=== PATIENT | male | born 1950 | race Caucasian/White ===

== ENCOUNTER 2023-01-18 08:45 | Outpatient (REF) | payer MEDICARE, SELFPAY | END 2023-01-18 08:46 | disposition home or self-care (01) | LOC: HO.HOSX 08:45 | PROVIDERS: Visit Provider Orthopaedic Surgery | DX: Z13.89 Encounter for screening for other disorder (principal) ==

== ENCOUNTER 2023-01-29 09:46 | Outpatient (REF) | payer MEDICARE, SELFPAY ==
--- NOTE | ~2023-01-29 | XR_ITS ---
EXAMINATION: XR PELVIS CLINICAL INFORMATION: Pain COMPARISON: Radiographs dated 09/09/2022. TECHNIQUE: 2 AP views of the pelvis are submitted. FINDINGS: There is bony demineralization. There is an intact right hip total arthroplasty. The left acetabular joint space is well-maintained. There is minimal peripheral osteophyte formation of the articular surfaces of the left hip. No fracture or dislocation is seen. There are diffuse atherosclerotic calcifications. There are incompletely characterized degenerative changes of the lower lumbar spine. XR/XR pelvis 1-2V IMPRESSION: 1. There is an intact right hip total arthroplasty, without hardware failure or loosening seen. 2. There is minimal osteoarthritic change of the left hip.
--- NOTE | ~2023-01-29 | XR_ITS ---
EXAMINATION: XR KNEE, LEFT XR KNEE AP STANDING CLINICAL INFORMATION: Pain. COMPARISON: None available. TECHNIQUE: Lateral and axial views of the left knee were obtained. AP bilateral standing view of the knees was obtained. FINDINGS: There is moderately severe asymmetric narrowing of the medial joint space compartment of the left knee, and the lateral and patellofemoral joint space compartments are well-maintained. There is tricompartment peripheral osteophyte formation. No fracture or dislocation is seen. There is a large left knee joint effusion. No foreign body is seen. There are diffuse atherosclerotic calcifications. The lateral and medial joint space compartments of the right knee are well-maintained. There is slight peripheral osteophyte formation of the medial joint space compartment. There are surgical clips in the medial soft tissues of the right knee. XR/XR knee standing BI IMPRESSION: 1. There is tricompartment osteoarthritic change of the left knee, most pronounced of the medial joint space compartment, where it is marked. 2. There is a large left knee joint effusion. 3. There is minimal osteoarthritic change of the medial joint space compartment of the right knee.
--- NOTE | ~2023-01-29 | XR_ITS ---
EXAMINATION: XR KNEE, LEFT XR KNEE AP STANDING CLINICAL INFORMATION: Pain. COMPARISON: None available. TECHNIQUE: Lateral and axial views of the left knee were obtained. AP bilateral standing view of the knees was obtained. FINDINGS: There is moderately severe asymmetric narrowing of the medial joint space compartment of the left knee, and the lateral and patellofemoral joint space compartments are well-maintained. There is tricompartment peripheral osteophyte formation. No fracture or dislocation is seen. There is a large left knee joint effusion. No foreign body is seen. There are diffuse atherosclerotic calcifications. The lateral and medial joint space compartments of the right knee are well-maintained. There is slight peripheral osteophyte formation of the medial joint space compartment. There are surgical clips in the medial soft tissues of the right knee. XR/XR knee LT 2V IMPRESSION: 1. There is tricompartment osteoarthritic change of the left knee, most pronounced of the medial joint space compartment, where it is marked. 2. There is a large left knee joint effusion. 3. There is minimal osteoarthritic change of the medial joint space compartment of the right knee.
== END 2023-01-29 09:47 | disposition home or self-care (01) ==
LOC: HO.HOSX 09:46
PROVIDERS: Visit Provider Orthopaedic Surgery
DX: M17.12 Unilateral primary osteoarthritis, left knee (principal); M54.50 Low back pain, unspecified; Z96.641 Presence of right artificial hip joint; E11.9 Type 2 diabetes mellitus without complications
CPT/HCPCS: 20610; 72170; 73560; 73565; J1100

== ENCOUNTER → 2023-02-22 10:31 | Outpatient (BNVA) | payer MEDICARE, BC, SELFPAY | PROVIDERS: PCP Family Medicine; Visit Provider Orthopaedic Surgery | DX: M17.12 Unilateral primary osteoarthritis, left knee (principal); M25.462 Effusion, left knee; M54.50 Low back pain, unspecified; E11.9 Type 2 diabetes mellitus without complications | CPT/HCPCS: 20610; J1100 ==

== ENCOUNTER → 2023-03-29 08:55 | Outpatient (BNVA) | payer MEDICARE, SELFPAY | PROVIDERS: PCP Family Medicine; Visit Provider Nurse Practitioner Family | DX: M54.50 Low back pain, unspecified (principal); M17.12 Unilateral primary osteoarthritis, left knee; M16.12 Unilateral primary osteoarthritis, left hip; M25.562 Pain in left knee | CPT/HCPCS: 99202 ==

== ENCOUNTER 2023-05-27 08:26 | Outpatient (AMB) | payer MEDICARE, SELFPAY ==
[2023-05-27 08:32] VITALS: BMI 38.4
--- NOTE | 2023-05-27 08:32 | MHC.OFFVIS ---
Intake Vital Signs 05/27/23 08:32 Height 5 ft 4 in Weight 224 lb BMI 38.4 Intake Visit Reasons: OV - Left Knee Durolane Intake Note: Jt is a 73 year old male who presents today for a left knee Durolane injection. Allergies sulfamethoxazole [From Bactrim] Adverse Reaction (Verified 05/27/23 08:35) Itching trimethoprim [From Bactrim] Adverse Reaction (Verified 05/27/23 08:35) Itching HPI OV - Left Knee Durolane HPI Details Jt is a 73 year old man with severe left knee OA, who presents for a Durolane injection. He denies any changes in his medical history He says his knee is not as bothersome for him compared to his previous appointment. He has worse pain in his lower back and buttocks, which is making it difficult to sit or lay down at night, and wants to know how long he may have pain after tearing his hamstring in 08/2022. He continues to have pain and difficulty using stairs. He says he has been seen by [facility] and was not interested in back surgery. He was seen by [facility] on 03/29/23, who prescribed Lidocaine patches for him to use, as per their note he wanted to have a knee injection prior to discussing back injections or a nerve stimulator trial. PENDING SALE TO [facility] Surgical History History of cardiac cath (07/28/17) History of right hip replacement (08/13/17) Social History Current occupational status: employed Current occupation: [employer] Squ[employer] Review of Systems Const All systems reviewed & are unremarkable except as noted in HPI and below Physical Exam Vital Signs: BMI result Body Mass Index 38.4 Const General: no acute distress and alert Orientation/consciousness: patient oriented x3 Neuro General: patient oriented x3 Extrem Other: Left Knee: No effusion Skin C/D/I edial joitn line TTP No pain with hamstring swtretch. dull ttp along piriformis fossa and ischial tuberosity Psych Appearance: grossly normal Affect: normal affect Attitude: cooperative Office Procedures Joint Injection/Drain Joint Injection/Drain Details: Injected Durolane. Site was prepped using aseptic technique. Patient tolerated the procedure well. Primary Site: left knee Approach Used: anterolateral Coding 55195 - Large joint Procedure code (CPT) selection complete Results Reviewed Results Reviewed: 05/27/23 08:26 Hyaluronate Sodium, Stabilized [Durolane] 60 mg INTRAARTIC .STK-MED ONE Assessment & Plan Assessment & Plan (1) Osteoarthritis of left knee: Code(s): M17.12 - Unilateral primary osteoarthritis, left knee Plan: This is a 72 year old man with severe left knee OA & effusion. He has pain with daily activity, worse at night when lying down or when using stairs. He was last injected on 02/22/23, with no relief. He feels limited in his ADLs but is not interested in surgery at this time. I injected his left knee with Durolane, which he tolerated well. He can follow up prn. (2) Back pain, lumbosacral: Code(s): M54.50 - Low back pain, unspecified Plan: Pain primarily in the lumbosacral region, worse when lying down or sitting. Has spoken with Pain Management on 03/29/23. I recommend he follow up with them to discuss treatment options. (3) Diabetes mellitus: Code(s): E11.9 - Type 2 diabetes mellitus without complications (4) Effusion, left knee: Code(s): M25.462 - Effusion, left knee (5) Spinal stenosis at L4-L5 level: Code(s): M48.061 - Spinal stenosis, lumbar region without neurogenic claudication Plan: May be related. Is seeing pain management. (6) Hamstring injury: Code(s): S76.309A - Unspecified injury of muscle, fascia and tendon of the posterior muscle group at thigh level, unspecified thigh, initial encounter Plan: MRI evidence of priximal hamstring partial avulsion. Minimal;ly painful but region is still painful at night. Plan Scribed for Phil Jerry MD by Carlitos Mcqueen, medical i d sales, on 05/27/23 at 8:45 AM, EST. Coding Level of Care Code Est Pt Level 4 (33945) Diagnoses Osteoarthritis of left knee M17.12 Back pain, lumbosacral M54.50 Diabetes mellitus E11.9 Effusion, left knee M25.462 Spinal stenosis at L4-L5 level M48.061 Hamstring injury S76.309A CPT Codes Coding - 14518 Large joint: 17077 - Large joint ([id number])
== END 2023-05-27 09:04 | disposition home or self-care (01) ==
PROVIDERS: Visit Provider Orthopaedic Surgery
DX: M17.12 Unilateral primary osteoarthritis, left knee (principal); M54.50 Low back pain, unspecified; M25.462 Effusion, left knee; M48.061 Spinal stenosis, lumbar region without neurogenic claudication; S76.309A Unspecified injury of muscle, fascia and tendon of the posterior muscle group at thigh level, unspecified thigh, initial encounter
CPT/HCPCS: 20610; 99214

== ENCOUNTER → 2023-05-27 08:26 | Outpatient (BNVA) | payer MEDICARE, SELFPAY | PROVIDERS: Visit Provider Orthopaedic Surgery | DX: M17.12 Unilateral primary osteoarthritis, left knee (principal); S76.309A Unspecified injury of muscle, fascia and tendon of the posterior muscle group at thigh level, unspecified thigh, initial encounter; M54.50 Low back pain, unspecified; M25.462 Effusion, left knee; M48.061 Spinal stenosis, lumbar region without neurogenic claudication; E11.9 Type 2 diabetes mellitus without complications | CPT/HCPCS: 20610; 99212; J7318 ==

== ENCOUNTER 2024-05-04 10:22 | Outpatient (AMB) | payer MEDICARE, SELFPAY ==
--- NOTE | 2024-05-04 10:24 | A.OFFVIS_ITS ---
Vital Signs 05/04/24 10:26 Height 5 ft 4 in Blood Pressure Location Rt brachial Position Sitting Respiration 17 Pulse 81 Pulse Source Pulse Oximeter Pulse Oximetry (%) 96 Oxygen Delivery Method Room Air Intake Visit Reasons: Chronic Low Back Pain (PARK: 03/29/23) Allergies sulfamethoxazole [From Bactrim] Adverse Reaction (Verified 05/04/24 10:30) Itching trimethoprim [From Bactrim] Adverse Reaction (Verified 05/04/24 10:30) Itching Medication List - Last Reconciled 05/04/24 by Subha Looney albuterol sulfate 90 mcg/actuation 2 puffs inhalation Q6H PRN atorvastatin 80 mg PO DAILY gabapentin 300 mg PO TID insulin degludec (Tresiba FlexTouch U-100 insulin) units subcut levothyroxine 50 mcg PO DAILY losartan-hydrochlorothiazide 50-12.5 mg 1 tab PO DAILY metformin 1,000 mg PO BID methenamine hippurate 1 g PO BID metoprolol tartrate 50 mg PO BID potassium chloride ER 10 mEq PO DAILY HPI Comments Details: Patient presents back to the office today for follow up. Reports persistent right lower back pain with radiation to groin and down the right leg to the knee. Has been taking Tylenol, ibuprofen and gabapentin but pain has not improved rated today as 10/10, worse with walking, sitting, standing Denies attempts at physical therapy, acupuncture, massage or previous injections. Denies red flag symptoms including new loss of bowel, bladder or saddle anesthesia Initial visit with [facility] SELECTOR PACKER: Patient is a pleasant 72-year-old male with prior history of osteoarthritis, lumbar degenerative disc disease, diabetes, aortic valve replacement and right total hip replacement presents today for initial evaluation of left knee, left hip and low back pain related to osteoarthritis and fall injury. Patient reports pain started in August 2022 when he pulled left hamstring muscle while carrying heavy gal of oil. Reports pelvic and abdominal pain has been relieved. 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 Patient reports he completed physical therapy at [facility] without any significant improvement in his functioning or pain relief. His back pain is mostly axial is occasional radiation of pain into his left posterior leg this occasional tingling but no numbness. Patient reports he had completed lumbar spine MRI and was evaluated by Neurosurgery at [facility] in the past and was deemed nonsurgical. This MRI report is not available today. He denies groin pain or sacroiliac joint pain today. His main concern today is left knee pain for which he is scheduled to have series of gel injections through orthopedics office. The patient reports left knee surgical option was also discussed with him but he would like to avoid surgery at this time. He rates his pain at 7/10 today, and as the day goes on he reports his pain reaches 9/10 at work. 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 Patient denies any fever, weight changes, bladder or bowel incontinence, or saddle anesthesia. 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 Answers questions appropriately. Fully engaged in examination. Skin: warm, dry, intact HEENT: Normocephalic. Hearing intact. Cardiac: External chest normal in appearance. Respiratory: No cough, audible wheezing or stridor. Abdomen: without gross distension. MS: No obvious swelling or deformities. Able to stand on bilateral tiptoes and bilateral heels.? Able to transition from sit to stand unassisted. Ambulates with bilaterally normal heel strike and toe off SLR negative bilaterally Tenderness to palpation right lumbar musculature Tenderness to palpation right PSIS [place] positive on the right SI compression positive on the right Thigh thrust positive on the right Negative footdrop, negative clonus Neurological: Oriented to person, place, time and situation. Thought process intact. Ambulates with the use of a walker Psychiatric: Appropriate mood and affect. Good judgment and insight. Assessment & Plan Assessment & Plan (1) Sacroiliac joint dysfunction of right side: Code(s): M53.3 - Sacrococcygeal disorders, not elsewhere classified Category: Medical (2) Myofascial low back pain: Code(s): M54.50 - Low back pain, unspecified Category: Medical (3) Back pain, lumbosacral: Code(s): M54.50 - Low back pain, unspecified Category: Medical Plan Patient presents the office today for evaluation management of his right lower back pain Order placed for PT eval and treat X-ray sacroiliac joint ordered for further evaluation X-ray lumbar spine ordered for for evaluation Methocarbamol 500 mg p.o. t.i.d. as needed. Patient advised on cautions for use SI belt provided today. Patient advised on use Discussed options for treatment, for right diagnostic SI joint injections with local anesthetic if pain persists despite physical therapy and muscle relaxers. All questions and concerns were answered, patient agrees with the plan. Follow up after PT, sooner if needed Orders: Orders XR sacroiliac joint min 3V Today M53.3 - Sacrococcygeal disorders, not elsewhere classified PT Evaluation and Treatment Today M53.3 - Sacrococcygeal disorders, not elsewhere classified, M54.50 - Low back pain, unspecified XR lumbar spine 4V min Today M54.50 - Low back pain, unspecified Medications: New methocarbamol No driving while taking this medication. Do no take with alcohol or other [employer]ELTER SUPER[employer]OR [employer] FURNACE Depressants 500 mg PO TID PRN 60 tabs 0RF muscle spasm Coding Level of Care Code Est Pt Level 4 (92893) Diagnoses Sacroiliac joint dysfunction of right side M53.3 Myofascial low back pain M54.50 Back pain, lumbosacral M54.50
[2024-05-04 10:26] VITALS: PULSE 81; RESP 17; O2SAT 96
== END 2024-05-04 10:56 | disposition home or self-care (01) ==
PROVIDERS: PCP Family Medicine; Visit Provider Registered Nurse Emergency
DX: M53.3 Sacrococcygeal disorders, not elsewhere classified (principal); M54.50 Low back pain, unspecified
CPT/HCPCS: 99214

== ENCOUNTER 2024-05-04 10:22 | Outpatient (REF) | payer MEDICARE, SELFPAY ==
--- NOTE | ~2024-05-04 | XR_ITS ---
EXAMINATION: XR LUMBAR SPINE CLINICAL INFORMATION: Reason for Exam M54.50 - Low back pain, unspecified COMPARISON: No prior study available. TECHNIQUE: 5 views frontal lateral both obliques and coned-down L5-S1. FINDINGS: Five [id number]-lwi-[id number] lumbar vertebrae were identified, mild compression superior endplate of the L2 indeterminant age., there are a grade 1 anterior spondylolisthesis of L4 on L5 and L5 on S1.. Narrowing of intervertebral disc spaces suggest underlying degenerative disc disease. Heavy aortic vascular calcifications. Paravertebral soft tissues are unremarkable. There are radiolucencies, most likely superimposed bowel gas.. No radiographic evidence of osteolytic or osteoblastic lesions. XR/XR lumbar spine 4V min IMPRESSION: * Mild compression fracture superior endplate of L2 indeterminant age. MRI could be utilized to assess the age of the fracture if clinically indicated. * Narrowing of intervertebral disc spaces suggest underlying degenerative disc disease. * Grade 1 anterior spondylolisthesis of L4 on L5 and L5 on S1. * Heavy aortic vascular calcifications.
--- NOTE | ~2024-05-04 | XR_ITS ---
EXAMINATION: XR SACROILIAC JOINTS CLINICAL INFORMATION: Sacrococcygeal disorders. COMPARISON: None available. TECHNIQUE: 3 views of the sacroiliac joints FINDINGS: There are sclerotic changes in the bones adjacent to the sacroiliac joints bilaterally left more than right suggesting sacroiliitis. There is no evidence of ankylosis. Right hip prosthesis in place. There are vascular calcifications. XR/XR sacroiliac joint min 3V IMPRESSION: * Bilateral sacroiliitis left more than right without evidence of ankylosis. * Right hip prosthesis in place. * Vascular calcifications.
== END 2024-05-04 10:23 | disposition home or self-care (01) ==
LOC: HO.XRAY 10:22
PROVIDERS: PCP Family Medicine; Visit Provider Registered Nurse Emergency
DX: M53.3 Sacrococcygeal disorders, not elsewhere classified (principal); M54.50 Low back pain, unspecified
CPT/HCPCS: 72110; 72202; 99212

== ENCOUNTER 2024-06-14 11:14 | Outpatient (AMB) | payer MEDICARE, SELFPAY ==
--- NOTE | 2024-06-14 11:11 | A.OFFVIS_ITS ---
Intake Visit Reasons: Discuss x-ray results Allergies sulfamethoxazole [From Bactrim] Adverse Reaction (Verified 05/04/24 10:30) Itching trimethoprim [From Bactrim] Adverse Reaction (Verified 05/04/24 10:30) Itching HPI Comments Details: Telephone visit performed today with patient for follow-up and to review recent x-rays. X-rays reviewed, results as per below Patient continues with right lower back pain with radiation to the thigh and around to the groin. Consistent with previous visit in physical exam findings Has been taking methocarbamol with some improvement of his pain Utilizing sacroiliac joint belt, reports that this is providing him some relief Unable to incorporate physical therapy into his daily life at this time. 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 The hours of daily driving and unfamiliar beds have also worse in his pain. Denies midline lower back pain Denies red flag symptoms including new loss of bowel, bladder or saddle anesthesia. Denies radiation of the pain past the level of the knee Prior: Patient presents back to the office today for follow up. Reports persistent right lower back pain with radiation to groin and down the right leg to the knee. Has been taking Tylenol, ibuprofen and gabapentin but pain has not improved rated today as 10/10, worse with walking, sitting, standing Denies attempts at physical therapy, acupuncture, massage or previous injections. Denies red flag symptoms including new loss of bowel, bladder or saddle anesthesia Initial visit with Georgiana HOIST MECHANIC: Patient is a pleasant 72-year-old male with prior history of osteoarthritis, lumbar degenerative disc disease, diabetes, aortic valve replacement and right total hip replacement presents today for initial evaluation of left knee, left hip and low back pain related to osteoarthritis and fall injury. Patient reports pain started in August 2022 when he pulled left hamstring muscle while carrying heavy gal of oil. Reports pelvic and abdominal pain has been relieved. 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 Patient reports he completed physical therapy at [facility] without any significant improvement in his functioning or pain relief. His back pain is mostly axial is occasional radiation of pain into his left posterior leg this occasional tingling but no numbness. Patient reports he had completed lumbar spine MRI and was evaluated by Neurosurgery at [facility] in the past and was deemed nonsurgical. This MRI report is not available today. He denies groin pain or sacroiliac joint pain today. His main concern today is left knee pain for which he is scheduled to have series of gel injections through orthopedics office. The patient reports left knee surgical option was also discussed with him but he would like to avoid surgery at this time. He rates his pain at 7/10 today, and as the day goes on he reports his pain reaches 9/10 at work. 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 Patient denies any fever, weight changes, bladder or bowel incontinence, or saddle anesthesia. 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 Review of Systems Const All systems reviewed & are unremarkable except as noted in HPI and below Physical Exam Vital signs and physical exam deferred, telephone visit only Telehealth Telehealth Telehealth Platform: Telephone Location of provider rendering services: practice address Location of patient: address on file Patient Identification confirmed using: Name, : Yes Telehealth method: voice only Patient verbally consented to treatment: Yes Patient verbally consented to billing insurance company: Yes Patient informed of any privacy concerns related to visit: Yes Minutes spent on Phone/Video with Pt.: 8 Results Reviewed Results Reviewed: 05/04/24 XR/XR sacroiliac joint min 3V IMPRESSION: * Bilateral sacroiliitis left more than right without evidence of ankylosis. * Right hip prosthesis in place. * Vascular calcifications. XR/XR lumbar spine 4V min IMPRESSION: * Mild compression fracture superior endplate of L2 indeterminant age. MRI could be utilized to assess the age of the fracture if clinically indicated. * Narrowing of intervertebral disc spaces suggest underlying degenerative disc disease. * Grade 1 anterior spondylolisthesis of L4 on L5 and L5 on S1. * Heavy aortic vascular calcifications. Assessment & Plan Assessment & Plan (1) Sacroiliac joint dysfunction of right side: Code(s): M53.3 - Sacrococcygeal disorders, not elsewhere classified Category: Medical (2) Myofascial low back pain: Code(s): M54.50 - Low back pain, unspecified Category: Medical (3) Back pain, lumbosacral: Code(s): M54.50 - Low back pain, unspecified Category: Medical Plan Telephone visit performed today for follow-up of his right lower back pain X-rays reviewed, results per above Continue with Methocarbamol 500 mg p.o. t.i.d. as needed. Continue using SI belt Discussed at length patient is diagnosis options for treatment. Will schedule for fluoroscopy guided right diagnostic SI joint injections with local anesthetic Patient has exhausted conservative therapy including greater than 6 months of nonsteroidal anti-inflammatory medications, [id number] medications, sacroiliac stabilization with a SI belt. Unable to tolerate physical therapy at this time Continue with plan for MRI lumbar spine to evaluate for worsening stenosis also evaluate status of L2 compression fracture revealed on recent x-ray. All questions and concerns were answered, patient agrees with the plan. Follow up after injection or MRI, sooner if needed Coding Level of Care Code Tele Est Pt Level 3 (76531) Diagnoses Sacroiliac joint dysfunction of right side M53.3 Myofascial low back pain M54.50 Back pain, lumbosacral M54.50
== END 2024-06-14 11:21 | disposition home or self-care (01) ==
LOC: HO.PMC 11:14
PROVIDERS: PCP Family Medicine; Visit Provider Registered Nurse Emergency
DX: M53.3 Sacrococcygeal disorders, not elsewhere classified (principal); M54.50 Low back pain, unspecified
CPT/HCPCS: 99213

== ENCOUNTER → 2024-06-14 11:14 | Outpatient (BNVA) | payer MEDICARE, SELFPAY | PROVIDERS: PCP Family Medicine; Visit Provider Registered Nurse Emergency ==

== ENCOUNTER 2024-06-30 16:41 | Outpatient (REF) | payer MEDICARE, SELFPAY ==
--- NOTE | ~2024-06-30 | MR_ITS ---
EXAMINATION: MR LUMBAR SPINE WITHOUT CONTRAST CLINICAL INFORMATION: 74-year-old with spinal stenosis, lumbar region without neurogenic claudication. Self-reported back pain, left more than right with right leg numbness and tingling. Previously suspected compression fracture of the superior endplate of L2 on prior x-rays. COMPARISON: 05/04/2024 x-rays. TECHNIQUE: MRI of the lumbar spine was obtained using routine sequences without contrast. FINDINGS: CORONAL ALIGNMENT: There is S-shaped scoliotic curvature, convex to the right at L4-L5 and convex to the left at L1-L2 similar to prior x-rays. There is mild right to left lateral listhesis at L2-L3 similar to prior x-rays. SAGITTAL ALIGNMENT: Stable grade 1 degenerative spondylolisthesis at L4-L5 and L5-S1 and stable grade 1 retrolisthesis at L3-L4 and L4-L5 with slight lordotic reversal at L1-L2, unchanged. LUMBOSACRAL JUNCTION: Normal. There are 5 [id number] lumbar-type vertebral bodies. VERTEBRAL BODIES: There is a compression fracture deformity of the superior endplate of L2 asymmetric to the right, with approximately 40% loss of height without significant retropulsion of the superior endplate. Marrow edema along the superior endplate asymmetric to the right associated with some fatty marrow changes is suggestive of incomplete healing. Remaining vertebral body heights are well-maintained. DISC SPACES AND ENDPLATES: Severe disc space height loss is noted asymmetric to the right at L1-L2 and L2-L3 with loss of intradiscal T2 weighted signal at these levels, Schmorl's nodes and spondylosis consistent with discogenic degenerative changes. Moderate to severe disc space height loss asymmetric to the left at L3-L4 with loss of intradiscal T2 weighted signal, Schmorl's nodes and spondylosis. Moderate disc space height loss at L5-S1 and moderate to severe disc space height loss at L4-L5 with intradiscal degenerative signal changes and spondylosis. There is prominent bilateral paravertebral spondylosis at L1-L2 and on the right at L2-L3. SPINAL CANAL: Multilevel diffuse epidural lipomatosis with associated deformity of the thecal sac between L5 and T12-L1. BONE MARROW: There are extensive type I degenerative marrow signal changes along the endplates at L2-L3 asymmetric to the right, with type II marrow signal changes along the endplates at L1-L2 and mixed type I and type II marrow signal changes along the endplates at L3-L4. There is mild marrow edema within the right L2 pedicle and posterior elements, likely reactive. CONUS MEDULLARIS: Terminates at L1-L2. Morphology and signal is normal. INTRADURAL NERVE ROOTS: There is crowding of the intradural nerve roots at L2-L3, L3-L4 and L4-L5 consistent with multilevel spinal canal stenosis. See below. L5-S1: Mild unroofing of the posterior disc margin is noted, with superimposed disc bulging and mild flattening of the dural sac. There is ligamentum flavum thickening with interspinous ligament degeneration and there is advanced bilateral facet joint arthropathy without significant canal stenosis. There is moderate craniocaudal neural foraminal stenosis bilaterally with disc osteophyte complexes abutting the exiting L5 nerve root sleeves bilaterally. L4-L5: Unroofing of the posterior disc margin consistent with grade 1 spondylolisthesis, with superimposed concentric disc bulging and left posterolateral annular fissuring, with flattening of the dural sac. Prominent dorsal fat pad noted with ligamentum flavum thickening and interspinous ligament degeneration, with advanced bilateral facet joint arthropathy with mild subchondral marrow edema adjacent to the left facet joint. Severe central spinal canal stenosis noted with marked crowding of the intradural nerve roots with severe bilateral subarticular and lateral recess stenosis encroaching on the traversing L5 nerve roots bilaterally. There is moderate to severe right-sided and severe left-sided neural foraminal stenosis, with impingement on the left L4 nerve root and mild encroachment on the exiting right L4 nerve root as well. L3-L4: There is retrolisthesis, with concentric disc bulge and endplate spurring asymmetric to the left with mild-moderate facet joint arthrosis, left more than right with ligamentum flavum thickening and a prominent dorsal fat pad. There is moderate to severe central spinal canal stenosis with marked crowding of the intradural nerve roots. There is a small left paramedian caudally migrated disc herniation encroaching on the left lateral recess. There is moderate facet joint arthrosis bilaterally. There is mild-moderate right-sided and moderate to severe left-sided neural foraminal stenosis, with disc osteophyte complex abutting the exiting L3 nerve roots, left more than right. Possible encroachment on the traversing left L4 nerve root in the left lateral recess. L2-L3: Retrolisthesis, concentric disc osteophyte complex and flattening of the dural sac is noted with a prominent dorsal fat pad and ligamentum flavum thickening asymmetric to the right. Moderate facet joint arthropathy noted bilaterally with interspinous ligament degeneration. Moderate to severe central canal stenosis with marked crowding of the intradural nerve roots is noted with severe left lateral recess stenosis and moderate right lateral recess stenosis with probable impingement on the traversing left L3 nerve root. Severe right sided and moderate left-sided neural foraminal stenosis is noted with right L2 nerve root impingement. L1-L2: Broad-based posterolateral disc osteophyte complex is noted asymmetric to the right with flattening of the ventral dural sac without conus impingement. Prominent dorsal fat pad noted with mild facet joint arthrosis on the right. No significant canal stenosis. Moderate right-sided and mild left-sided neural foraminal stenosis is noted with right lateral disc osteophyte complex abutting the extraforaminal right L1 nerve root. T12-L1: Small central to left paramedian disc protrusion. No significant facet joint arthrosis, canal or neural foraminal stenosis. PARAVERTEBRAL AND INCLUDED EXTRASPINAL SOFT TISSUES: There is posterior paraspinal and psoas muscle sarcopenia, particularly the right psoas muscle and bilateral paraspinal musculature. Otherwise unremarkable. MR/MR lumbar spine wo con IMPRESSION: 1. S-shaped scoliosis, as described above, with grade 1 degenerative spondylolisthesis at L4-L5 and L5-S1 and retrolisthesis at L3-L4 and L2-L3. 2. Severe multilevel DDD and spondylosis, with multilevel disc bulging and disc osteophyte complexes with multilevel ligamentum flavum thickening and facet joint arthropathy as well as interspinous ligament degeneration. 3. Severe spinal canal stenosis at L4-L5, moderate to severe spinal canal stenosis at L3-L4 and L2-L3 with marked crowding of the intradural nerve roots. Left lateral recess stenosis at L2-L3 and L3-L4 and bilateral lateral recess stenosis at L4-L5 with multilevel traversing neural impingement. 4. Multilevel bilateral neural foraminal stenosis, most severe on the left at L4-L5 and L3-L4 and on the right at L2-L3 with multilevel exiting nerve root impingement. 5. Compression fracture deformity of the superior endplate of L2 asymmetric to the right, with marrow edema along the superior endplate asymmetric to the right suggesting incomplete healing. 6. Diffuse sarcopenia particularly involving the right psoas muscle and bilateral paraspinal musculature. Electronically signed by: Lencho Oakes MD 07/07/2024 04:39 PM EDT RP
== END 2024-06-30 16:42 | disposition home or self-care (01) ==
LOC: HO.MRI 16:41
PROVIDERS: PCP Family Medicine; Visit Provider Registered Nurse Emergency
DX: M48.061 Spinal stenosis, lumbar region without neurogenic claudication (principal)
CPT/HCPCS: 72148

== ENCOUNTER 2024-07-13 09:40 | Outpatient (AMB) | payer MEDICARE, SELFPAY ==
[2024-07-13 09:48] VITALS: BP 117/57; PULSE 65; O2SAT 97; BMI 37.8
--- NOTE | 2024-07-13 09:48 | MHC.OFFVIS ---
Vital Signs 07/13/24 09:48 Height 5 ft 4 in Weight 220 lb BMI 37.8 BP 117/57 L Blood Pressure Location Rt brachial Position Sitting Pulse 65 Pulse Source Pulse Oximeter Pulse Oximetry (%) 97 Oxygen Delivery Method Room Air Intake Visit Reasons: MRI results Allergies sulfamethoxazole [From Bactrim] Adverse Reaction (Verified 07/13/24 09:48) Itching trimethoprim [From Bactrim] Adverse Reaction (Verified 07/13/24 09:48) Itching Medication List - Last Reconciled 07/13/24 by uSbha Looney albuterol sulfate 90 mcg/actuation 2 puffs inhalation Q6H PRN atorvastatin 80 mg PO DAILY gabapentin 300 mg PO TID insulin degludec (Tresiba FlexTouch U-100 insulin) units subcut levothyroxine 50 mcg PO DAILY losartan-hydrochlorothiazide 50-12.5 mg 1 tab PO DAILY metformin 1,000 mg PO BID methenamine hippurate 1 g PO BID methocarbamol 500 mg PO TID PRN metoprolol tartrate 50 mg PO BID potassium chloride ER 10 mEq PO DAILY HPI Comments Details: Patient presents to the office today for follow-up lower back pain, review of recent MRI MRI reviewed, results as per below He reports since last visit pain has been less in the groin, buttocks and thigh. He has been suffering with right lower back pain with radiation down the leg to the foot Does state that since his last disease no longer driving for extended period of time daily for work and maybe this is why his presentation has changed Is concerned for worsening stenosis, states feels better when he walks with a slight forward flexed position in does endorse leaning over grocery cart when shopping improves his pain. Also recently suffered a metatarsal fracture to his left foot, is wearing walking boot. Prior: Telephone visit performed today with patient for follow-up and to review recent x-rays. X-rays reviewed, results as per below Patient continues with right lower back pain with radiation to the thigh and around to the groin. Consistent with previous visit in physical exam findings Has been taking methocarbamol with some improvement of his pain Utilizing sacroiliac joint belt, reports that this is providing him some relief Unable to incorporate physical therapy into his daily life at this time. 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 The hours of daily driving and unfamiliar beds have also worse in his pain. Denies midline lower back pain Denies red flag symptoms including new loss of bowel, bladder or saddle anesthesia. Denies radiation of the pain past the level of the knee Prior: Patient presents back to the office today for follow up. Reports persistent right lower back pain with radiation to groin and down the right leg to the knee. Has been taking Tylenol, ibuprofen and gabapentin but pain has not improved rated today as 10/10, worse with walking, sitting, standing Denies attempts at physical therapy, acupuncture, massage or previous injections. Denies red flag symptoms including new loss of bowel, bladder or saddle anesthesia Initial visit with [place] [employer]: Patient is a pleasant 72-year-old male with prior history of osteoarthritis, lumbar degenerative disc disease, diabetes, aortic valve replacement and right total hip replacement presents today for initial evaluation of left knee, left hip and low back pain related to osteoarthritis and fall injury. Patient reports pain started in August 2022 when he pulled left hamstring muscle while carrying heavy gal of oil. Reports pelvic and abdominal pain has been relieved. 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 Patient reports he completed physical therapy at [facility] without any significant improvement in his functioning or pain relief. His back pain is mostly axial is occasional radiation of pain into his left posterior leg this occasional tingling but no numbness. Patient reports he had completed lumbar spine MRI and was evaluated by Neurosurgery at [facility] in the past and was deemed nonsurgical. This MRI report is not available today. He denies groin pain or sacroiliac joint pain today. His main concern today is left knee pain for which he is scheduled to have series of gel injections through orthopedics office. The patient reports left knee surgical option was also discussed with him but he would like to avoid surgery at this time. He rates his pain at 7/10 today, and as the day goes on he reports his pain reaches 9/10 at work. 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 Patient denies any fever, weight changes, bladder or bowel incontinence, or saddle anesthesia. Location Left knee, left hip and low back pain Duration Since August 2022 due to a fall Characteristics of symptom or complaint Aching and stabbing, occasional tingling Aggravating or associated factors Movements, prolonged walking, climbing stairs, changing positions Relieving factors Rest, gabapentin, OTC topical applications Treatment PT at [facility], cortisone injections FOR[facility]LY [facility], [facility] Surgical History History of cardiac cath (07/28/17) History of right hip replacement (08/13/17) Social History Current occupational status: employed Current occupation: [employer] Review of Systems Const All systems reviewed & are unremarkable except as noted in HPI and below Physical Exam Vital Signs: Last Vital Signs Pulse 65 07/13/24 09:48 BP 117/57 L 07/13/24 09:48 Pulse Ox 97 07/13/24 09:48 Oxygen Delivery Method Room Air 07/13/24 09:48 BMI result Body Mass Index 37.8 General: awake, alert, oriented. Answers questions appropriately. Fully engaged in examination. Skin: warm, dry, intact HEENT: Normocephalic. Hearing intact. Cardiac: External chest normal in appearance. Respiratory: No cough, audible wheezing or stridor. Abdomen: without gross distension. MS: No obvious swelling or deformities. Able to stand on bilateral tiptoes and bilateral heels.? Able to transition from sit to stand unassisted. Ambulates with bilaterally normal heel strike and toe off SLR negative bilaterally Negative footdrop, negative clonus Walking boot to left foot Neurological: Oriented to person, place, time and situation. Thought process intact. Ambulates with the use of a walker Psychiatric: Appropriate mood and affect. Good judgment and insight. Results Reviewed Results Reviewed: 06/30/24 MR LS IMPRESSION: 1. S-shaped scoliosis, as described above, with grade 1 degenerative spondylolisthesis at L4-L5 and L5-S1 and retrolisthesis at L3-L4 and L2-L3. 2. Severe multilevel DDD and spondylosis, with multilevel disc bulging and disc osteophyte complexes with multilevel ligamentum flavum thickening and facet joint arthropathy as well as interspinous ligament degeneration. 3. Severe spinal canal stenosis at L4-L5, moderate to severe spinal canal stenosis at L3-L4 and L2-L3 with marked crowding of the intradural nerve roots. Left lateral recess stenosis at L2-L3 and L3-L4 and bilateral lateral recess stenosis at L4-L5 with multilevel traversing neural impingement. 4. Multilevel bilateral neural foraminal stenosis, most severe on the left at L4-L5 and L3-L4 and on the right at L2-L3 with multilevel exiting nerve root impingement. 5. Compression fracture deformity of the superior endplate of L2 asymmetric to the right, with marrow edema along the superior endplate asymmetric to the right suggesting incomplete healing. 6. Diffuse sarcopenia particularly involving the right psoas muscle and bilateral paraspinal musculature. 05/04/24 XR/XR sacroiliac joint min 3V IMPRESSION: * Bilateral sacroiliitis left more than right without evidence of ankylosis. * Right hip prosthesis in place. * Vascular calcifications. XR/XR lumbar spine 4V min IMPRESSION: * Mild compression fracture superior endplate of L2 indeterminant age. MRI could be utilized to assess the age of the fracture if clinically indicated. * Narrowing of intervertebral disc spaces suggest underlying degenerative disc disease. * Grade 1 anterior spondylolisthesis of L4 on L5 and L5 on S1. * Heavy aortic vascular calcifications. Assessment & Plan Assessment & Plan (1) Sacroiliac joint dysfunction of right side: Code(s): M53.3 - Sacrococcygeal disorders, not elsewhere classified Category: Medical (2) Myofascial low back pain: Code(s): M54.50 - Low back pain, unspecified Category: Medical (3) Back pain, lumbosacral: Code(s): M54.50 - Low back pain, unspecified Category: Medical (4) Spinal stenosis at L4-L5 level: Code(s): M48.061 - Spinal stenosis, lumbar region without neurogenic claudication Category: Medical Plan MRI reviewed, results as per above Referral placed for neuro spine to evaluate Discussed at length patient is diagnosis options for treatment. Will schedule for fluoroscopy guided bilateral L3-4 L4-5 transforaminal epidural steroid injection Patient has exhausted conservative therapy including greater than 6 months of nonsteroidal anti-inflammatory medications, [id number] medications. Unable to tolerate physical therapy at this time All questions and concerns were answered, patient agrees with the plan. Follow up after injection, sooner if needed Orders: Referrals Neuro Spine Referral M48.061 - Spinal stenosis, lumbar region without neurogenic claudication Coding Level of Care Code Est Pt Level 3 (68535) Complex EM visit Add On G2211 Diagnoses Sacroiliac joint dysfunction of right side M53.3 Myofascial low back pain M54.50 Back pain, lumbosacral M54.50 Spinal stenosis at L4-L5 level M48.061
== END 2024-07-13 10:25 | disposition home or self-care (01) ==
PROVIDERS: PCP Family Medicine; Visit Provider Registered Nurse Emergency
DX: M53.3 Sacrococcygeal disorders, not elsewhere classified (principal); M54.50 Low back pain, unspecified; M48.061 Spinal stenosis, lumbar region without neurogenic claudication
CPT/HCPCS: 99213; G2211

== ENCOUNTER → 2024-07-13 09:40 | Outpatient (BNVA) | payer MEDICARE, SELFPAY | PROVIDERS: PCP Family Medicine; Visit Provider Registered Nurse Emergency | DX: M53.3 Sacrococcygeal disorders, not elsewhere classified (principal); M54.50 Low back pain, unspecified; M48.061 Spinal stenosis, lumbar region without neurogenic claudication | CPT/HCPCS: 99212 ==

== ENCOUNTER 2024-07-24 10:23 | Outpatient (AMB) | payer MEDICARE, SELFPAY ==
--- NOTE | 2024-07-24 10:26 | HO.SPINEOV ---
Intake Visit Reasons: lumbar stenosis Intake Note: Mr. Casarez is here today c/o back pain difficulty with walking. Director Cardiovascular Required: No Allergies sulfamethoxazole [From Bactrim] Adverse Reaction (Verified 07/13/24 09:48) Itching trimethoprim [From Bactrim] Adverse Reaction (Verified 07/13/24 09:48) Itching Assessment & Plan Assessment & Plan (1) Lumbar radiculopathy: Code(s): M54.16 - Radiculopathy, lumbar region Category: Medical Plan Dear Sandi Thank you for referring Mr Casarez to our office today. He is a very nice 74-year-old gentleman presents to the office today for evaluation of spine issues relating to his lower back. He has had a issue over the last 12 months where he has developed an right anterior groin pain that radiates down the front of his leg, there is an occasional tingling or numbness associated with it but is primarily a severe stabbing like pain. He did have a hip replaced on the right side and went see the orthopedics office here to see if there is something wrong with the implant and was told that it was okay. He ultimately underwent a lumbar MRI showing extensive degenerative disc disease and foraminal and central canal narrowing was sent today see us for an evaluation. In the interim, he has been dealing with this primarily with gabapentin. He also takes Tylenol and Motrin. He has not yet had any injections but as I understand it there was an upcoming L3-4, L4-5 transforaminal epidural that he is scheduled for sometime in July. He comes in today to see us to have a surgical evaluation with regard to his lumbar spine. 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 [place] and at times he will have to get out of his truck just to make the pain go away. PMH: He has history of right hip replacement, hypertension, cholesterol, recurrent UTIs that apparently was addressed with medications, diabetes with an A1c that generally hovers around 7, he had a aortic valve replacement port seen done at [facility] about 5 years ago. He has had a number of different issues going on with his feet, he has fractured both of his foot bones on either foot with minimal stress and strain. He tells me he was just simply turning with his weight on 1 ft and fractured his metatarsal. He has done that twice. It has required surgery to put pins in there. Other than that he tells me has no major medical problems, heart attacks, strokes, kidney disorders, liver disease. No bleeding disorders, blood clots, cancer etc.. Social hx: He has been a drinker for most of his adult life, with daily alcohol consumption. He has cut back on this over the last few weeks. He does not smoke or use any marijuana. Medications: Gabapentin, methocarbamol, metformin, insulin, methenamine, vitamin-C, some medication for his heart beat which he could not recall the name, levothyroxine, baby aspirin, Motrin, Tylenol Allergies: Bactrim Physical exam: He appears uncomfortable Imaging review: He is a lumbar MRI done at [place] which has significant findings of scoliotic curvature of the lumbar spine, he appears to have a compression fracture which remains active on the STIR sequencing at L2. There is severe right-sided collapse with severe right L2 foraminal stenosis at this level. He also has moderate stenosis at L3-4 and severe stenosis at L4-5 with a grade 1-2 spondylolisthesis at this level. Impression: 74-year-old male presents to the office today for evaluation of what sounds like an upper lumbar radiculopathy radiating from his anterior groin down into his thigh and knee. I am suspicious it could be the L2 nerve in the L2 foramen where he has the collapse of the bone from the compression fracture and disc degeneration at L2-3 disc space. He also has overlapping stenosis at L3-4 and L4-5. He does not have the classic symptoms of stenosis radiating down into his calves with the lower lumbar stenosis, but he has many overlapping issues with his feet because of the fractures that there could be some issue with this as well. He is going to undergo an L3-4, L4-5 TFE in a few weeks and this will tell us more about where the pain could be coming from. If that does not work, I would recommend a right L2 TFE to follow-up. With regard to the compression fracture, he does not have a lot of back pain right now and I do not think a kyphoplasty is warranted. The main symptoms he is dealing with his the radiculopathy. Dealing with his spine surgically is going to be a bit complicated because he appears to have poor bone quality based on his history of having fractures in both of his feet with minimal trauma and a compression fracture which developed without any obvious trauma. This suggests a diagnosis of osteoporosis. Treatment of his scoliosis and spondylolisthesis typically would involve hardware, but if his bone quality is that poor, he may just need to have something more simple like a decompression done. This would require standing x-rays and a CT scan if it gets to the point where he is considering an operation. We will see how it goes with the injections and we can follow up with him if he does not have any success with that. Thank you for allowing us to care for your patient. The total time spent with this visit with this patient was 45 minutes reviewing history, physical exam, lumbar imaging review, and implementation of treatment plan or further diagnostic testing Sunil Fox MD,PhD [facility] Coding Level of Care Code New Pt Level 4 (83054) Diagnoses Lumbar radiculopathy M54.16
== END 2024-07-24 12:25 | disposition home or self-care (01) ==
PROVIDERS: PCP Family Medicine; Referring Provider Registered Nurse Emergency; Visit Provider Physician Assistant
DX: M54.16 Radiculopathy, lumbar region (principal)
CPT/HCPCS: 99204

== ENCOUNTER → 2024-07-24 10:23 | Outpatient (BNVA) | payer MEDICARE, SELFPAY | PROVIDERS: PCP Family Medicine; Visit Provider Physician Assistant | DX: M54.16 Radiculopathy, lumbar region (principal) | CPT/HCPCS: 99202 ==

== ENCOUNTER 2024-08-08 06:29 | Outpatient (REF) | payer MEDICARE, SELFPAY | END 2024-08-08 06:30 | disposition home or self-care (01) | LOC: CF 06:29 | PROVIDERS: Visit Provider Anesthesiology | DX: M53.3 Sacrococcygeal disorders, not elsewhere classified (principal) | CPT/HCPCS: 27096; J2003; J2795; Q9967 ==

== ENCOUNTER 2024-08-08 13:04 | Outpatient (AMB) | payer MEDICARE, SELFPAY ==
--- NOTE | 2024-08-08 13:06 | A.OFFVIS_ITS ---
Vital Signs 08/08/24 14:07 08/08/24 14:08 Height 5 ft 4 in 5 ft 4 in Weight 220 lb 220 lb BMI 37.8 37.8 BP 131/62 151/72 H Blood Pressure Location Lt brachial Lt brachial Position Sitting Sitting Respiration 16 16 Pulse 72 62 Pulse Source Pulse Oximeter Pulse Oximeter Pulse Oximetry (%) 96 98 Oxygen Delivery Method Room Air Room Air Comment pre-op post-op Intake Visit Reasons: RIGHT DIAGNOSTIC SIJ INJECTION Allergies sulfamethoxazole [From Bactrim] Adverse Reaction (Verified 08/08/24 14:08) Itching trimethoprim [From Bactrim] Adverse Reaction (Verified 08/08/24 14:08) Itching PFSH Surgical History History of cardiac cath (07/28/17) History of right hip replacement (08/13/17) Social History Current occupational status: employed 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 All questions about benefits and risks for the procedure were answered.steward/stewardess chief cargo vessel environmental officer Nissa Rodriguez helps her to convey this conversation. Patient came to the operating room and was positioned prone on the operating table with the pillow under the abdomen. The lower back and buttocks of the patient were prepped with ChloraPrep prepped and draped with sterile utility towels.? Sterilely draped C-arm was brought over the operating field and sq picture of patient's pelvis was demonstrated on the screen.? For the right joint tilting C-arm contralateral to the site of the joint the most posterior portion of the joints was superimposed with anterior silhouette of the joint.? Skin was injected in the projection of the joint slightly medial to the location of the joint with 25 gauge 1/2 inch needle using local lidocaine 2% . After that 22 gauge 3 and 1/2 inch needle was driven to the right joint in tunnel vision fashion.? When needle entered the joint capsule injection of the contrast was performed demonstrating intra-articular and minimally periarticular spread of the contrast.? After that 5.5 cc. of ropivacaine 0.5% was injected in the joint. Upon completion of the injections the needle was removed and Band- Aid was applied.? Upon completion of the injection patient was taken outside of the operating room to the recovery room where recovered uneventfully. Coding Level of Care Code Procedure Only Diagnoses Sacroiliac joint dysfunction of right side M53.3
[2024-08-08 14:07] VITALS: BP 131/62; PULSE 72; RESP 16; O2SAT 96; BMI 37.8
[2024-08-08 14:08] VITALS: BP 151/72; PULSE 62; RESP 16; O2SAT 98; BMI 37.8
== END 2024-08-08 14:33 | disposition home or self-care (01) ==
LOC: HO.PMCPRC 13:05
PROVIDERS: PCP Family Medicine; Visit Provider Anesthesiology
DX: M53.3 Sacrococcygeal disorders, not elsewhere classified (principal)
CPT/HCPCS: 27096

== ENCOUNTER 2024-08-16 08:28 | Outpatient (AMB) | payer MEDICARE, SELFPAY ==
[2024-08-16 08:35] VITALS: BP 158/69; PULSE 71; O2SAT 97; BMI 38.4
--- NOTE | 2024-08-16 08:35 | A.OFFVIS_ITS ---
Vital Signs 08/16/24 08:35 Height 5 ft 4 in Weight 224 lb BMI 38.4 BP 158/69 H Blood Pressure Location Rt brachial Position Sitting Pulse 71 Pulse Source Pulse Oximeter Pulse Oximetry (%) 97 Oxygen Delivery Method Room Air Intake Visit Reasons: RIGHT DIAGNOSTIC SIJ INJECTION Allergies sulfamethoxazole [From Bactrim] Adverse Reaction (Verified 08/08/24 14:08) Itching trimethoprim [From Bactrim] Adverse Reaction (Verified 08/08/24 14:08) Itching HPI Comments Details: Patient presents back to the office today for follow-up 1 week s/p fluoroscopy guided right diagnostic SI joint injections with local anesthetic He reports 90% pain relief with improvement in functional mobility for 24 hours after the procedure Even today states pain is much improved throughout the day. 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 He has been suffering with right lower back pain with radiation down the leg to the foot Does state that since his last disease no longer driving for extended period of time daily for work and maybe this is why his presentation has changed Is concerned for worsening stenosis, states feels better when he walks with a slight forward flexed position in does endorse leaning over grocery cart when shopping improves his pain. Also recently suffered a metatarsal fracture to his left foot, is wearing walking boot. Prior: Telephone visit performed today with patient for follow-up and to review recent x-rays. X-rays reviewed, results as per below Patient continues with right lower back pain with radiation to the thigh and around to the groin. Consistent with previous visit in physical exam findings Has been taking methocarbamol with some improvement of his pain Utilizing sacroiliac joint belt, reports that this is providing him some relief Unable to incorporate physical therapy into his daily life at this time. 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 The hours of daily driving and unfamiliar beds have also worse in his pain. Denies midline lower back pain Denies red flag symptoms including new loss of bowel, bladder or saddle anesthesia. Denies radiation of the pain past the level of the knee Prior: Patient presents back to the office today for follow up. Reports persistent right lower back pain with radiation to groin and down the right leg to the knee. Has been taking Tylenol, ibuprofen and gabapentin but pain has not improved rated today as 10/10, worse with walking, sitting, standing Denies attempts at physical therapy, acupuncture, massage or previous injecti ons. Denies red flag symptoms including new loss of bowel, bladder or saddle anesthesia Initial visit with Georgiana PILATES COORDINATOR: Patient is a pleasant 72-year-old male with prior history of osteoarthritis, lumbar degenerative disc disease, diabetes, aortic valve replacement and right total hip replacement presents today for initial evaluation of left knee, left hip and low back pain related to osteoarthritis and fall injury. Patient reports pain started in August 2022 when he pulled left hamstring muscle while carrying heavy gal of oil. Reports pelvic and abdominal pain has been relieved. 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 Patient reports he completed physical therapy at [facility] without any significant improvement in his functioning or pain relief. His back pain is mostly axial is occasional radiation of pain into his left posterior leg this occasional tingling but no numbness. Patient reports he had completed lumbar spine MRI and was evaluated by Neurosurgery at [facility] in the past and was deemed nonsurgical. This MRI report is not available today. He denies groin pain or sacroiliac joint pain today. His main concern today is left knee pain for which he is scheduled to have series of gel injections through orthopedics office. The patient reports left knee surgical option was also discussed with him but he would like to avoid surgery at this time. He rates his pain at 7/10 today, and as the day goes on he reports his pain reaches 9/10 at work. 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 Patient denies any fever, weight changes, bladder or bowel incontinence, or saddle anesthesia. 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 Answers questions appropriately. Fully engaged in examination. Skin: warm, dry, intact HEENT: Normocephalic. Hearing intact. Cardiac: External chest normal in appearance. Respiratory: No cough, audible wheezing or stridor. Abdomen: without gross distension. MS: No obvious swelling or deformities. SLR negative bilaterally Tenderness to palpation right lumbar musculature Tenderness to palpation right PSIS [place] positive on the right SI compression positive on the right Thigh thrust positive on the right Neurological: Oriented to person, place, time and situation. Thought process intact. Psychiatric: Appropriate mood and affect. Good judgment and insight. Results Reviewed Results Reviewed: 06/30/24 MR LS IMPRESSION: 1. S-shaped scoliosis, as described above, with grade 1 degenerative spondylolisthesis at L4-L5 and L5-S1 and retrolisthesis at L3-L4 and L2-L3. 2. Severe multilevel DDD and spondylosis, with multilevel disc bulging and disc osteophyte complexes with multilevel ligamentum flavum thickening and facet joint arthropathy as well as interspinous ligament degeneration. 3. Severe spinal canal stenosis at L4-L5, moderate to severe spinal canal stenosis at L3-L4 and L2-L3 with marked crowding of the intradural nerve roots. Left lateral recess stenosis at L2-L3 and L3-L4 and bilateral lateral recess stenosis at L4-L5 with multilevel traversing neural impingement. 4. Multilevel bilateral neural foraminal stenosis, most severe on the left at L4-L5 and L3-L4 and on the right at L2-L3 with multilevel exiting nerve root impingement. 5. Compression fracture deformity of the superior endplate of L2 asymmetric to the right, with marrow edema along the superior endplate asymmetric to the right suggesting incomplete healing. 6. Diffuse sarcopenia particularly involving the right psoas muscle and bilateral paraspinal musculature. 05/04/24 XR/XR sacroiliac joint min 3V IMPRESSION: * Bilateral sacroiliitis left more than right without evidence of ankylosis. * Right hip prosthesis in place. * Vascular calcifications. XR/XR lumbar spine 4V min IMPRESSION: * Mild compression fracture superior endplate of L2 indeterminant age. MRI could be utilized to assess the age of the fracture if clinically indicated. * Narrowing of intervertebral disc spaces suggest underlying degenerative disc disease. * Grade 1 anterior spondylolisthesis of L4 on L5 and L5 on S1. * Heavy aortic vascular calcifications. Assessment & Plan Assessment & Plan (1) Sacroiliac joint dysfunction of right side: Code(s): M53.3 - Sacrococcygeal disorders, not elsewhere classified Category: Medical (2) Myofascial low back pain: Code(s): M54.50 - Low back pain, unspecified Category: Medical (3) Back pain, lumbosacral: Code(s): M54.50 - Low back pain, unspecified Category: Medical Plan He reports 90% pain relief with improvement in functional and mobility for 24 hours after the diagnostic injection. Would like to proceed with therapeutic injection. Continue with Methocarbamol 500 mg p.o. t.i.d. as needed. Continue using SI belt Discussed at length patient is diagnosis options for treatment. Patient has exhausted conservative therapy including greater than 6 months of nonsteroidal anti-inflammatory medications, [id number] medications, sacroiliac stabilization with a SI belt. Unable to tolerate physical therapy at this time All questions and concerns were answered, patient agrees with the plan. Follow up after injection, sooner if needed Coding Level of Care Code Est Pt Level 3 (84604) Complex EM visit Add On G2211 Diagnoses Sacroiliac joint dysfunction of right side M53.3 Myofascial low back pain M54.50 Back pain, lumbosacral M54.50
== END 2024-08-16 08:59 | disposition home or self-care (01) ==
PROVIDERS: PCP Family Medicine; Visit Provider Registered Nurse Emergency
DX: M53.3 Sacrococcygeal disorders, not elsewhere classified (principal); M54.50 Low back pain, unspecified
CPT/HCPCS: 99213; G2211

== ENCOUNTER → 2024-08-16 08:28 | Outpatient (BNVA) | payer MEDICARE, SELFPAY | PROVIDERS: PCP Family Medicine; Visit Provider Registered Nurse Emergency | DX: M53.3 Sacrococcygeal disorders, not elsewhere classified (principal); M54.50 Low back pain, unspecified | CPT/HCPCS: 99212 ==

== ENCOUNTER 2024-08-29 06:19 | Outpatient (REF) | payer MEDICARE, SELFPAY | END 2024-08-29 06:20 | disposition home or self-care (01) | LOC: CF 06:19 | PROVIDERS: Visit Provider Anesthesiology | DX: M53.3 Sacrococcygeal disorders, not elsewhere classified (principal); M54.16 Radiculopathy, lumbar region | CPT/HCPCS: 27096; J2003; J2795; J3301; Q9967 ==

== ENCOUNTER 2024-08-29 15:07 | Outpatient (AMB) | payer MEDICARE, SELFPAY ==
--- NOTE | 2024-08-29 15:12 | MHC.OFFVIS ---
Vital Signs 08/29/24 15:33 08/29/24 15:34 08/29/24 16:01 Height 5 ft 4 in 5 ft 4 in Weight 224 lb 224 lb BMI 38.4 38.4 BP 152/77 H 197/76 H 160/73 H Blood Pressure Location Lt brachial Lt brachial Rt brachial Position Sitting Sitting Sitting Respiration 16 16 Pulse 95 73 Pulse Source Pulse Oximeter Pulse Oximeter Pulse Oximetry (%) 94 98 Oxygen Delivery Method Room Air Room Air Comment pre-op post-op Intake Visit Reasons: RIGHT THERAPEUTIC SIJ INJECTION Allergies sulfamethoxazole [From Bactrim] Adverse Reaction (Verified 08/29/24 15:35) Itching trimethoprim [From Bactrim] Adverse Reaction (Verified 08/29/24 15:35) Itching PFSH Surgical History History of cardiac cath (07/28/17) History of right hip replacement (08/13/17) Social History Current occupational status: employed 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 All questions about benefits and risks for the procedure were answered. Patient came to the operating room and was positioned prone on the operating table with the pillow under the abdomen. The lower back and buttocks of the patient were prepped with ChloraPrep prepped and draped with sterile utility towels.? Sterilely draped C-arm was brought over the operating field and sq picture of patient's pelvis was demonstrated on the screen.? For the right joint tilting C-arm contralateral to the site of the joint the most posterior portion of the joints was superimposed with anterior silhouette of the joint.? Skin was injected in the projection of the joint slightly medial to the location of the joint with 25 gauge 1/2 inch needle using local lidocaine 2% . After that 22 gauge 3 and 1/2 inch needle was driven to the right joint in tunnel vision fashion.? When needle entered the joint capsule injection of the contrast was performed demonstrating intra-articular and minimally periarticular spread of the contrast.? After that 4 cc. of ropivacaine 0.5% mixed with Kenalog 20 mg was injected in the joint. Upon completion of the injections the needle was removed and Band-Aid was applied.? Upon completion of the injection patient was taken outside of the operating room to the recovery room where recovered uneventfully. Orders: Orders FL guidance in treatment room 08/29/24 M53.3 - Sacrococcygeal disorders, not elsewhere classified, M54.16 - Radiculopathy, lumbar region Coding Level of Care Code Procedure Only Diagnoses Sacroiliac joint dysfunction of right side M53.3
[2024-08-29 15:33] VITALS: BP 152/77; PULSE 95; RESP 16; O2SAT 94; BMI 38.4
[2024-08-29 15:34] VITALS: BP 197/76; PULSE 73; RESP 16; O2SAT 98; BMI 38.4
[2024-08-29 16:01] VITALS: BP 160/73
== END 2024-08-29 15:50 | disposition home or self-care (01) ==
LOC: HO.PMCPRC 15:07
PROVIDERS: PCP Family Medicine; Visit Provider Anesthesiology
DX: M53.3 Sacrococcygeal disorders, not elsewhere classified (principal)
CPT/HCPCS: 27096

== ENCOUNTER 2024-09-20 13:02 | Outpatient (AMB) | payer MEDICARE, SELFPAY ==
[2024-09-20 13:06] VITALS: BP 173/78; PULSE 67; RESP 19; O2SAT 95; BMI 38.4
--- NOTE | 2024-09-20 13:06 | MHC.OFFVIS ---
Vital Signs 09/20/24 13:06 Height 5 ft 4 in Weight 224 lb BMI 38.4 BP 173/78 H Blood Pressure Location Lt brachial Position Sitting Respiration 19 Pulse 67 Pulse Source Pulse Oximeter Pulse Oximetry (%) 95 Oxygen Delivery Method Room Air Comment post-op Intake Visit Reasons: RIGHT THERAPEUTIC SIJ INJECTION Allergies sulfamethoxazole [From Bactrim] Adverse Reaction (Verified 08/29/24 15:35) Itching trimethoprim [From Bactrim] Adverse Reaction (Verified 08/29/24 15:35) Itching HPI Comments Details: Patient presents back to the office today for follow-up, 1 month status post right therapeutic sacroiliac joint injection He reports 3 weeks of pain relief following the injection. Pain has since returned Pain today is rated as a 9/10, reports it is higher than before the injection and wraps around the hip down the front of the thigh Minimal relief with muscle methocarbamol. Currently attending physical therapy with some improvement. Prior: Patient presents back to the office today for follow-up 1 week s/p fluoroscopy guided right diagnostic SI joint injections with local anesthetic He reports 90% pain relief with improvement in functional mobility for 24 hours after the procedure Even today states pain is much improved throughout the day. 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 He has been suffering with right lower back pain with radiation down the leg to the foot Does state that since his last disease no longer driving for extended period of time daily for work and maybe this is why his presentation has changed Is concerned for worsening stenosis, states feels better when he walks with a slight forward flexed position in does endorse leaning over grocery cart when shopping improves his pain. Also recently suffered a metatarsal fracture to his left foot, is wearing walking boot. Prior: Telephone visit performed today with patient for follow-up and to review recent x-rays. X-rays reviewed, results as per below Patient continues with right lower back pain with radiation to the thigh and around to the groin. Consistent with previous visit in physical exam findings Has been taking methocarbamol with some improvement of his pain Utilizing sacroiliac joint belt, reports that this is providing him some relief Unable to incorporate physical therapy into his daily life at this time. 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 The hours of daily driving and unfamiliar beds have also worse in his pain. Denies midline lower back pain Denies red flag symptoms including new loss of bowel, bladder or saddle anesthesia. Denies radiation of the pain past the level of the knee Prior: Patient presents back to the office today for follow up. Reports persistent right lower back pain with radiation to groin and down the right leg to the knee. Has been taking Tylenol, ibuprofen and gabapentin but pain has not improved rated today as 10/10, worse with walking, sitting, standing Denies attempts at physical therapy, acupuncture, massage or previous injections. 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 Patient reports pain started in August 2022 when he pulled left hamstring muscle while carrying heavy gal of oil. Reports pelvic and abdominal pain has been relieved. 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 Patient reports he completed physical therapy at [facility] without any significant improvement in his functioning or pain relief. His back pain is mostly axial is occasional radiation of pain into his left posterior leg this occasional tingling but no numbness. Patient reports he had completed lumbar spine MRI and was evaluated by Neurosurgery at [facility] in the past and was deemed nonsurgical. This MRI report is not available today. He denies groin pain or sacroiliac joint pain today. His main concern today is left knee pain for which he is scheduled to have series of gel injections through orthopedics office. The patient reports left knee surgical option was also discussed with him but he would like to avoid surgery at this time. He rates his pain at 7/10 today, and as the day goes on he reports his pain reaches 9/10 at work. 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 Patient denies any fever, weight changes, bladder or bowel incontinence, or saddle anesthesia. 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 Answers questions appropriately. Fully engaged in examination. Skin: warm, dry, intact HEENT: Normocephalic. Hearing intact. Cardiac: External chest normal in appearance. Respiratory: No cough, audible wheezing or stridor. Abdomen: without gross distension. MS: No obvious swelling or deformities. Neurological: Oriented to person, place, time and situation. Thought process intact. Psychiatric: Appropriate mood and affect. Good judgment and insight. Results Reviewed Results Reviewed: 06/30/24 MR LS IMPRESSION: 1. S-shaped scoliosis, as described above, with grade 1 degenerative spondylolisthesis at L4-L5 and L5-S1 and retrolisthesis at L3-L4 and L2-L3. 2. Severe multilevel DDD and spondylosis, with multilevel disc bulging and disc osteophyte complexes with multilevel ligamentum flavum thickening and facet joint arthropathy as well as interspinous ligament degeneration. 3. Severe spinal canal stenosis at L4-L5, moderate to severe spinal canal stenosis at L3-L4 and L2-L3 with marked crowding of the intradural nerve roots. Left lateral recess stenosis at L2-L3 and L3-L4 and bilateral lateral recess stenosis at L4-L5 with multilevel traversing neural impingement. 4. Multilevel bilateral neural foraminal stenosis, most severe on the left at L4-L5 and L3-L4 and on the right at L2-L3 with multilevel exiting nerve root impingement. 5. Compression fracture deformity of the superior endplate of L2 asymmetric to the right, with marrow edema along the superior endplate asymmetric to the right suggesting incomplete healing. 6. Diffuse sarcopenia particularly involving the right psoas muscle and bilateral paraspinal musculature. 05/04/24 XR/XR sacroiliac joint min 3V IMPRESSION: * Bilateral sacroiliitis left more than right without evidence of ankylosis. * Right hip prosthesis in place. * Vascular calcifications. XR/XR lumbar spine 4V min IMPRESSION: * Mild compression fracture superior endplate of L2 indeterminant age. MRI could be utilized to assess the age of the fracture if clinically indicated. * Narrowing of intervertebral disc spaces suggest underlying degenerative disc disease. * Grade 1 anterior spondylolisthesis of L4 on L5 and L5 on S1. * Heavy aortic vascular calcifications. Assessment & Plan Assessment & Plan (1) Sacroiliac joint dysfunction of right side: Code(s): M53.3 - Sacrococcygeal disorders, not elsewhere classified Category: Medical (2) Myofascial low back pain: Code(s): M54.50 - Low back pain, unspecified Category: Medical (3) Back pain, lumbosacral: Code(s): M54.50 - Low back pain, unspecified Category: Medical (4) Spinal stenosis at L4-L5 level: Code(s): M48.061 - Spinal stenosis, lumbar region without neurogenic claudication Category: Medical Plan Discontinue methocarbamol. New prescription for tizanidine 2 mg p.o. 3 times daily as needed. Patient advised on cautions for use Discussed at length with patient his diagnosis options for treatment. Continue with plan for fluoroscopy guided bilateral L3-4 L4-5 transforaminal epidural steroid injection. Patient is awaiting procedure date. Patient has exhausted conservative therapy including greater than 6 months of nonsteroidal anti-inflammatory medications, [id number] medications. Continue physical therapy as scheduled All questions and concerns were answered, patient agrees with the plan. Follow up after injection, sooner if needed Medications: New tizanidine Discontinue use of methocarbamol prior to starting this medication. No driving or alcohol use while taking this medication. 2 mg PO TID PRN 90 tabs 0RF muscle spasticity Discontinued methocarbamol No driving while taking this medication. Do no take with alcohol or other SCIENCE EDUCATION PROFESSOR Depressants Discontinued Reason: Doctor's Order 500 mg PO TID PRN 60 tabs 0RF muscle spasm Coding Level of Care Code Est Pt Level 3 (66360) Complex EM visit Add On G2211 Diagnoses Sacroiliac joint dysfunction of right side M53.3 Myofascial low back pain M54.50 Back pain, lumbosacral M54.50 Spinal stenosis at L4-L5 level M48.061
== END 2024-09-20 13:46 | disposition home or self-care (01) ==
PROVIDERS: PCP Family Medicine; Visit Provider Registered Nurse Emergency
DX: M53.3 Sacrococcygeal disorders, not elsewhere classified (principal); M54.50 Low back pain, unspecified; M48.061 Spinal stenosis, lumbar region without neurogenic claudication
CPT/HCPCS: 99213; G2211

== ENCOUNTER → 2024-09-20 13:02 | Outpatient (BNVA) | payer MEDICARE, SELFPAY | PROVIDERS: PCP Family Medicine; Visit Provider Registered Nurse Emergency | DX: M53.3 Sacrococcygeal disorders, not elsewhere classified (principal); M54.50 Low back pain, unspecified; M48.061 Spinal stenosis, lumbar region without neurogenic claudication | CPT/HCPCS: 99212 ==

== ENCOUNTER 2024-10-12 14:04 | Outpatient (AMB) | payer MEDICARE, SELFPAY ==
--- NOTE | 2024-10-12 14:16 | HO.SPINEOV ---
Intake Visit Reasons: questions Intake Note: Mr. Casarez is here today for a F/u after pain management. Fitness Management Director Required: No Allergies tizanidine Adverse Reaction (Mild, Verified 10/12/24 14:28) Confusion sulfamethoxazole [From Bactrim] Adverse Reaction (Verified 10/12/24 14:28) Itching trimethoprim [From Bactrim] Adverse Reaction (Verified 10/12/24 14:28) Itching Assessment & Plan Assessment & Plan (1) Chronic SI joint pain: Code(s): M53.3 - Sacrococcygeal disorders, not elsewhere classified; G89.29 - Other chronic pain Category: Medical Plan Mr Casarez came back in the office today to review his pain situation again today. He still has pain in his low back over the SI joint and into his hip. He no longer has the severe pain down the anteior thigh. He has tremendous pain with walking and pain at night. He has had great relief from the 2 SI joint injections your team did for him. On exam he has positive finger adalgisa, and postive compression testing on the SI joint. He seems to also have some relief from the SI joint belt. It sounds like the diagnosis is SI joint inflammation. He corroborates this in that he senses that it started after his hip replacement when he no longer had the same leg length and his altered gait provoked this pain. I know he has an upcoming injection scheduled for the lumbar spine, but it seems like you have made the diagnosis of SI joint inflammation. It sounds like he might need an SI joint fusion. From the standpoint of his lumbar spine, I do not think there is anything suggesting that this is related to stenosis. It is very focal to the right hip and right SI joint region. Total amount of time spent in this visit was 20 minutes in discussion of symptoms, lumbar imaging results and subsequent plan of care Sunil Fox MD,PhD [facility] Coding Level of Care Code Est Pt Level 3 (73012) Diagnoses Chronic SI joint pain M53.3; G89.29
== END 2024-10-12 15:20 | disposition home or self-care (01) ==
PROVIDERS: PCP Family Medicine; Visit Provider Physician Assistant
DX: M53.3 Sacrococcygeal disorders, not elsewhere classified (principal); G89.29 Other chronic pain
CPT/HCPCS: 99213

== ENCOUNTER → 2024-10-12 14:04 | Outpatient (BNVA) | payer MEDICARE, SELFPAY | PROVIDERS: PCP Family Medicine; Visit Provider Physician Assistant | DX: M53.3 Sacrococcygeal disorders, not elsewhere classified (principal); G89.29 Other chronic pain | CPT/HCPCS: 99212 ==

== ENCOUNTER 2024-10-16 09:47 | Outpatient (RCR) | payer MEDICARE, SELFPAY ==
--- NOTE | 2024-09-14 16:16 | MHC.PT.EP ---
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, cardiac valve replacement and R HERNANDEZ who is referred to PT for eval and treat of sacrococcygeal disorder which is resulting in decreased tolerance for sitting, standing for duration, walking long duration, and performing heavy chores and work tasks secondary to significant MRI findings for spinal DDD, scoliosis, multilevel foraminal and central stenosis, compression fracture, and sarcopenia, as well as core and hip weakness, gait abnormality, and pain; Pt is deemed an appropriate candidate to receive skilled PT in order to address his physical impairments in order to improve his functional ability. Frequency and Duration: The patient will be seen 2 x / wk x 5 wks. Short Term Goals: Initiate home program. improve baseline pain to < 3- 6/10; initial: 5-9/10. Electronic Train Control Technician Goals: I with back basics home program. Pt will improve core strength by at least 1/2 MMT grade. Pt will report able to walk long distances. Pt will be able to tolerate sitting > 1 hour with managed Sx. Treatment Plan: Modalities to reduce pain, spasms and effusion. Manual therapy to restore motion and function. Therapeutic exercise to improve strength and flexibility. Neuromuscular re-education for posture and balance. Therapeutic activities to return to functional activities of daily living. Electronically signed by: Rodger Burrows PT. Please sign and return to therapist. Thank you for your referral.
--- NOTE | 2024-10-16 16:13 | MHC.PT.DC ---
[facility] [place] Office [place] Office [place] Office [address] Chuy Curran [address] [phone] F: [phone] F: [phone] F: [phone] F: [phone] Physical Therapy Discharge Report Diagnosis: sacrococcygeal disorder Date of Surgery: Date of Evaluation: 09/14/24 Date of Discharge: 10/16/24 Treatments to Date: 10 Cancellations to Date: No Shows to Date: Discharge Status: Independent with HEP Recommend MD Follow-up Discharge Summary: Jt has been an active and motivated participant in his therapy in and out of the clinic. He is I with his basic program which is comfortable to perform though he does persist with R hip and thigh pain aw well as LBP at times; he reports PM pain and AM Pain as worse, reports once he is moving he has improves during the day. He persists with limited ability to walk and stand for duration as well as sitting for travel. Electronically signed by: Rodger Burrows PT. Please sign and return to therapist. Thank you for your referral.
== END 2024-10-16 16:10 | disposition home or self-care (01) ==
LOC: HO.PT 09:47
PROVIDERS: PCP Family Medicine; Visit Provider Registered Nurse Emergency
DX: M54.50 Low back pain, unspecified (principal); M53.3 Sacrococcygeal disorders, not elsewhere classified
CPT/HCPCS: 97110; 97140; 97162; 97535

== ENCOUNTER 2024-11-08 08:59 | Outpatient (AMB) | payer MEDICARE, SELFPAY ==
--- NOTE | 2024-11-08 09:01 | MHC.OFFVIS ---
Vital Signs 11/08/24 09:04 Height 5 ft 4 in Weight 233 lb BMI 40.0 BP 132/67 Blood Pressure Location Lt brachial Position Sitting Respiration 15 Pulse 81 Pulse Source Pulse Oximeter Pulse Oximetry (%) 96 Oxygen Delivery Method Room Air Intake Visit Reasons: Low Back Pain Allergies tizanidine Adverse Reaction (Mild, Verified 11/08/24 09:05) Confusion sulfamethoxazole [From Bactrim] Adverse Reaction (Verified 11/08/24 09:05) Itching trimethoprim [From Bactrim] Adverse Reaction (Verified 11/08/24 09:05) Itching Medication List - Last Reconciled 11/08/24 by April Lin LPN albuterol sulfate 90 mcg/actuation 2 puffs inhalation Q6H PRN atorvastatin 80 mg PO DAILY gabapentin 300 mg PO TID insulin degludec (Tresiba FlexTouch U-100 insulin) units subcut levothyroxine 50 mcg PO DAILY losartan-hydrochlorothiazide 50-12.5 mg 1 tab PO DAILY metformin 1,000 mg PO BID methenamine hippurate 1 g PO BID methocarbamol 500 mg PO TID PRN metoprolol tartrate 50 mg PO BID potassium chloride ER 10 mEq PO DAILY HPI Comments Details: Patient presents back to the office today for follow-up, procedure discussion Has questions regarding procedure scheduled for next Wednesday. He would like to discuss what the procedure is as well as the intended therapeutic results Denies new medications, allergies or diagnoses since last visit Prior: Patient presents back to the office today for follow-up, 1 month status post right therapeutic sacroiliac joint injection He reports 3 weeks of pain relief following the injection. Pain has since returned Pain today is rated as a 9/10, reports it is higher than before the injection and wraps around the hip down the front of the thigh Minimal relief with muscle methocarbamol. Currently attending physical therapy with some improvement. Prior: Patient presents back to the office today for follow-up 1 week s/p fluoroscopy guided right diagnostic SI joint injections with local anesthetic He reports 90% pain relief with improvement in functional mobility for 24 hours after the procedure Even today states pain is much improved throughout the day. 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 He has been suffering with right lower back pain with radiation down the leg to the foot Does state that since his last disease no longer driving for extended period of time daily for work and maybe this is why his presentation has changed Is concerned for worsening stenosis, states feels better when he walks with a slight forward flexed position in does endorse leaning over grocery cart when shopping improves his pain. Also recently suffered a metatarsal fracture to his left foot, is wearing walking boot. Prior: Telephone visit performed today with patient for follow-up and to review recent x-rays. X-rays reviewed, results as per below Patient continues with right lower back pain with radiation to the thigh and around to the groin. Consistent with previous visit in physical exam findings Has been taking methocarbamol with some improvement of his pain Utilizing sacroiliac joint belt, reports that this is providing him some relief Unable to incorporate physical therapy into his daily life at this time. 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 The hours of daily driving and unfamiliar beds have also worse in his pain. Denies midline lower back pain Denies red flag symptoms including new loss of bowel, bladder or saddle anesthesia. Denies radiation of the pain past the level of the knee Prior: Patient presents back to the office today for follow up. Reports persistent right lower back pain with radiation to groin and down the right leg to the knee. Has been taking Tylenol, ibuprofen and gabapentin but pain has not improved rated today as 10/10, worse with walking, sitting, standing Denies attempts at physical therapy, acupuncture, massage or previous injections. Denies red flag symptoms including new loss of bowel, bladder or saddle anesthesia Initial visit with [facility]: Patient is a pleasant 72-year-old male with prior history of osteoarthritis, lumbar degenerative disc disease, diabetes, aortic valve replacement and right total hip replacement presents today for initial evaluation of left knee, left hip and low back pain related to osteoarthritis and fall injury. Patient reports pain started in August 2022 when he pulled left hamstring muscle while carrying heavy gal of oil. Reports pelvic and abdominal pain has been relieved. 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 Patient reports he completed physical therapy at [facility] without any significant improvement in his functioning or pain relief. His back pain is mostly axial is occasional radiation of pain into his left posterior leg this occasional tingling but no numbness. Patient reports he had completed lumbar spine MRI and was evaluated by Neurosurgery at [facility] in the past and was deemed nonsurgical. This MRI report is not available today. He denies groin pain or sacroiliac joint pain today. His main concern today is left knee pain for which he is scheduled to have series of gel injections through orthopedics office. The patient reports left knee surgical option was also discussed with him but he would like to avoid surgery at this time. He rates his pain at 7/10 today, and as the day goes on he reports his pain reaches 9/10 at work. 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 Patient denies any fever, weight changes, bladder or bowel incontinence, or saddle anesthesia. 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 Answers questions appropriately. Fully engaged in examination. Skin: warm, dry, intact HEENT: Normocephalic. Hearing intact. Cardiac: External chest normal in appearance. Respiratory: No cough, audible wheezing or stridor. Abdomen: without gross distension. MS: No obvious swelling or deformities. Neurological: Oriented to person, place, time and situation. Thought process intact. Psychiatric: Appropriate mood and affect. Good judgment and insight. Results Reviewed Results Reviewed: 06/30/24 MR LS IMPRESSION: 1. S-shaped scoliosis, as described above, with grade 1 degenerative spondylolisthesis at L4-L5 and L5-S1 and retrolisthesis at L3-L4 and L2-L3. 2. Severe multilevel DDD and spondylosis, with multilevel disc bulging and disc osteophyte complexes with multilevel ligamentum flavum thickening and facet joint arthropathy as well as interspinous ligament degeneration. 3. Severe spinal canal stenosis at L4-L5, moderate to severe spinal canal stenosis at L3-L4 and L2-L3 with marked crowding of the intradural nerve roots. Left lateral recess stenosis at L2-L3 and L3-L4 and bilateral lateral recess stenosis at L4-L5 with multilevel traversing neural impingement. 4. Multilevel bilateral neural foraminal stenosis, most severe on the left at L4-L5 and L3-L4 and on the right at L2-L3 with multilevel exiting nerve root impingement. 5. Compression fracture deformity of the superior endplate of L2 asymmetric to the right, with marrow edema along the superior endplate asymmetric to the right suggesting incomplete healing. 6. Diffuse sarcopenia particularly involving the right psoas muscle and bilateral paraspinal musculature. 05/04/24 XR/XR sacroiliac joint min 3V IMPRESSION: * Bilateral sacroiliitis left more than right without evidence of ankylosis. * Right hip prosthesis in place. * Vascular calcifications. XR/XR lumbar spine 4V min IMPRESSION: * Mild compression fracture superior endplate of L2 indeterminant age. MRI could be utilized to assess the age of the fracture if clinically indicated. * Narrowing of intervertebral disc spaces suggest underlying degenerative disc disease. * Grade 1 anterior spondylolisthesis of L4 on L5 and L5 on S1. * Heavy aortic vascular calcifications. Assessment & Plan Assessment & Plan (1) Sacroiliac joint dysfunction of right side: Code(s): M53.3 - Sacrococcygeal disorders, not elsewhere classified Category: Medical (2) Myofascial low back pain: Code(s): M54.50 - Low back pain, unspecified Category: Medical (3) Back pain, lumbosacral: Code(s): M54.50 - Low back pain, unspecified Category: Medical (4) Spinal stenosis at L4-L5 level: Code(s): M48.061 - Spinal stenosis, lumbar region without neurogenic claudication Category: Medical Plan Continue methocarbamol 500 mg 3 times daily as needed New prescription for diclofenac 50 mg p.o. twice daily. Patient advised on cautions for use Discussed at length with patient his diagnosis and options for treatment. He has exhausted conservative therapy including greater than 6 months of nonsteroidal anti-inflammatory medications, [id number] medications. Continue with plan for fluoroscopy guided bilateral L3-4 L4-5 transforaminal epidural steroid injection scheduled for next week. All questions and concerns were answered, patient agrees with the plan. Follow up after injection, sooner if needed Medications: New diclofenac potassium Take with food, do not take with any other nonsteroidal anti-inflammatory medications. 50 mg PO BID 60 tabs 1RF Coding Level of Care Code Est Pt Level 3 (12682) Complex EM visit Add On G2211 Diagnoses Sacroiliac joint dysfunction of right side M53.3 Myofascial low back pain M54.50 Back pain, lumbosacral M54.50 Spinal stenosis at L4-L5 level M48.061
[2024-11-08 09:04] VITALS: BP 132/67; PULSE 81; RESP 15; O2SAT 96; BMI 40.0
== END 2024-11-08 09:56 | disposition home or self-care (01) ==
PROVIDERS: PCP Family Medicine; Visit Provider Registered Nurse Emergency
DX: M53.3 Sacrococcygeal disorders, not elsewhere classified (principal); M54.50 Low back pain, unspecified; M48.061 Spinal stenosis, lumbar region without neurogenic claudication
CPT/HCPCS: 99213; G2211

== ENCOUNTER → 2024-11-08 08:59 | Outpatient (BNVA) | payer MEDICARE, SELFPAY | PROVIDERS: PCP Family Medicine; Visit Provider Registered Nurse Emergency | DX: M53.3 Sacrococcygeal disorders, not elsewhere classified (principal); M54.50 Low back pain, unspecified; M48.061 Spinal stenosis, lumbar region without neurogenic claudication | CPT/HCPCS: 99212 ==

== ENCOUNTER 2024-11-14 06:12 | Outpatient (REF) | payer MEDICARE, SELFPAY ==
--- NOTE | ~2024-11-14 | FL_ITS ---
EXAMINATION: FL GUIDANCE ONLY HISTORY: M54.16 - Radiculopathy, lumbar region COMPARISON: None available. TECHNIQUE: Fluoroscopy time: 0.4 minutes. Cumulative Dose: 8.44 mGy. DAP: 0.146 uGy-m2 (microgray-meter squared). Images: 4. FINDINGS: Images demonstrate needles and contrast material in the regions of the right L3-4 and L4-5 facet joints. FL/FL guidance in treatment room IMPRESSION: Fluoroscopy during procedure. Please see procedure report for additional information. Electronically signed by: Austin Gomez MD 11/14/2024 03:30 PM KATELYN RUIZ
== END 2024-11-14 06:13 | disposition home or self-care (01) ==
LOC: CF 06:12
PROVIDERS: Visit Provider Anesthesiology
DX: M53.3 Sacrococcygeal disorders, not elsewhere classified (principal); M54.50 Low back pain, unspecified; M48.061 Spinal stenosis, lumbar region without neurogenic claudication; M54.16 Radiculopathy, lumbar region
CPT/HCPCS: 64483; 64484; J2003; J3301; Q9967

== ENCOUNTER 2024-11-14 07:25 | Outpatient (AMB) | payer MEDICARE, SELFPAY ==
[2024-11-14 07:42] VITALS: BP 134/63; PULSE 69; RESP 16; O2SAT 99
--- NOTE | 2024-11-14 07:42 | MHC.OFFVIS ---
Vital Signs 11/14/24 07:42 11/14/24 08:30 BP 134/63 152/81 H Blood Pressure Location Lt brachial Lt brachial Position Sitting Sitting Respiration 16 16 Pulse 69 70 Pulse Source Pulse Oximeter Pulse Oximeter Pulse Oximetry (%) 99 96 Oxygen Delivery Method Room Air Room Air Intake Visit Reasons: BILATERAL L3, L4 AND L4, L5 TFESI Allergies tizanidine Adverse Reaction (Mild, Verified 11/14/24 07:42) Confusion sulfamethoxazole [From Bactrim] Adverse Reaction (Verified 11/14/24 07:42) Itching trimethoprim [From Bactrim] Adverse Reaction (Verified 11/14/24 07:42) Itching Medication List - Last Reconciled 11/14/24 by April iLn LPN albuterol sulfate 90 mcg/actuation 2 puffs inhalation Q6H PRN atorvastatin 80 mg PO DAILY diclofenac potassium 50 mg PO BID gabapentin 300 mg PO TID insulin degludec (Tresiba FlexTouch U-100 insulin) units subcut levothyroxine 50 mcg PO DAILY losartan-hydrochlorothiazide 50-12.5 mg 1 tab PO DAILY metformin 1,000 mg PO BID methenamine hippurate 1 g PO BID methocarbamol 500 mg PO TID PRN metoprolol tartrate 50 mg PO BID potassium chloride ER 10 mEq PO DAILY PFSH Surgical History History of cardiac cath (07/28/17) History of right hip replacement (08/13/17) Social History Current occupational status: employed 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 Physical Exam Vital Signs: Last Vital Signs Pulse 70 11/14/24 08:30 Resp 16 11/14/24 08:30 BP 152/81 H 11/14/24 08:30 Pulse Ox 96 11/14/24 08:30 Oxygen Delivery Method Room Air 11/14/24 08:30 Assessment & Plan Assessment & Plan (1) Sacroiliac joint dysfunction of right side: Code(s): M53.3 - Sacrococcygeal disorders, not elsewhere classified Category: Medical (2) Myofascial low back pain: Code(s): M54.50 - Low back pain, unspecified Category: Medical (3) Back pain, lumbosacral: Code(s): M54.50 - Low back pain, unspecified Category: Medical (4) Spinal stenosis at L4-L5 level: Code(s): M48.061 - Spinal stenosis, lumbar region without neurogenic claudication Category: Medical Plan Transforaminal L3-L4 and L4-5 right epidural steroid injection . Informed consent was thoroughly explained to the patient before the procedure.? The patient came to the operating room.? He was positioned prone on operating table with a pillow under his abdomen.? Time-out was performed delineating correct site and side of the procedure, nature of the injection, name and date of of the patient. The lower back of the patient was prepped with ChloraPrep and draped with sterile utility towels.? C-arm was brought over the operating field and sq picture of L3 was demonstrated on the screen.? The right side was chosen as the side of the injection.? Tilting machine ipsilateral to the right at the level of L 3 1st the most prominent picture of the right pedicle was obtained on the screen.? 3 mm below the level of the lowest point of the pedicle projection to the skin small amount of lidocaine 1% 3-4 cc was injected to anesthetize the skin.? After that 5 in 22 gauge Quincke point needle was inserted through the skin wheal and was advanced toward the L3-L4 foramina on anterior posterior , lateral and oblique views intermittently.? When needle reached appropriate positioned injection of the contrast was performed delineating epidural and perineural spread of the contrast. No intravascular no intra neuro and no intrathecal spread of the contrast was noted. After that injection of the 3 cc of lidocaine 1% mixed with Kenalog 30 mg was performed into the needle. After that procedure was repeated at L4-L5 level in the same fashion as it was done at L3-L4. Total dose of Kenalog was 60 mg. Upon the completion of the procedure needle was removed sterile Band-Aids were applied. Patient tolerated the procedure well. Orders: Orders FL guidance in treatment room Today M54.16 - Radiculopathy, lumbar region Coding Level of Care Code Procedure Only Diagnoses Sacroiliac joint dysfunction of right side M53.3 Myofascial low back pain M54.50 Back pain, lumbosacral M54.50 Spinal stenosis at L4-L5 level M48.061
[2024-11-14 08:30] VITALS: BP 152/81; PULSE 70; RESP 16; O2SAT 96
== END 2024-11-14 08:32 | disposition home or self-care (01) ==
LOC: HO.PMCPRC 07:25
PROVIDERS: PCP Family Medicine; Visit Provider Anesthesiology
DX: M54.16 Radiculopathy, lumbar region (principal)
CPT/HCPCS: 64483; 64484

== ENCOUNTER 2024-11-24 10:11 | Outpatient (AMB) | payer MEDICARE, SELFPAY ==
--- NOTE | 2024-11-24 10:12 | MHC.OFFVIS ---
Vital Signs 11/24/24 10:17 11/24/24 10:18 11/24/24 10:53 Height 5 ft 4 in Weight 228 lb BMI 39.1 BP 221/91 H 223/93 H 140/68 H Blood Pressure Location Rt brachial Lt brachial Rt brachial Position Sitting Sitting Sitting Pulse 70 Pulse Source Pulse Oximeter Comment bp recheck bp recheck manual Intake Visit Reasons: BILATERAL L3, L4 AND L4, L5 TFESI Allergies tizanidine Adverse Reaction (Mild, Verified 11/14/24 07:42) Confusion sulfamethoxazole [From Bactrim] Adverse Reaction (Verified 11/14/24 07:42) Itching trimethoprim [From Bactrim] Adverse Reaction (Verified 11/14/24 07:42) Itching HPI Comments Details: Patient presents back to the office today for follow-up, 1 month status post right L3-4, L4-5 transforaminal epidural steroid injection Reports 90% pain relief with improvement in functional ability. Denies any untoward effects. States he is sleeping better, wound better. Taking less gabapentin, Tylenol and ibuprofen. Pain today is rated as a 2/10 Prior: Patient presents back to the office today for follow-up, procedure discussion Has questions regarding procedure scheduled for next Wednesday. He would like to discuss what the procedure is as well as the intended therapeutic results Denies new medications, allergies or diagnoses since last visit Prior: Patient presents back to the office today for follow-up, 1 month status post right therapeutic sacroiliac joint injection He reports 3 weeks of pain relief following the injection. Pain has since returned Pain today is rated as a 9/10, reports it is higher than before the injection and wraps around the hip down the front of the thigh Minimal relief with muscle methocarbamol. Currently attending physical therapy with some improvement. Prior: Patient presents back to the office today for follow-up 1 week s/p fluoroscopy guided right diagnostic SI joint injections with local anesthetic He reports 90% pain relief with improvement in functional mobility for 24 hours after the procedure Even today states pain is much improved throughout the day. 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 He has been suffering with right lower back pain with radiation down the leg to the foot Does state that since his last disease no longer driving for extended period of time daily for work and maybe this is why his presentation has changed Is concerned for worsening stenosis, states feels better when he walks with a slight forward flexed position in does endorse leaning over grocery cart when shopping improves his pain. Also recently suffered a metatarsal fracture to his left foot, is wearing walking boot. Prior: Telephone visit performed today with patient for follow-up and to review recent x-rays. X-rays reviewed, results as per below Patient continues with right lower back pain with radiation to the thigh and around to the groin. Consistent with previous visit in physical exam findings Has been taking methocarbamol with some improvement of his pain Utilizing sacroiliac joint belt, reports that this is providing him some relief Unable to incorporate physical therapy into his daily life at this time. 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 The hours of daily driving and unfamiliar beds have also worse in his pain. Denies midline lower back pain Denies red flag symptoms including new loss of bowel, bladder or saddle anesthesia. Denies radiation of the pain past the level of the knee Prior: Patient presents back to the office today for follow up. Reports persistent right lower back pain with radiation to groin and down the right leg to the knee. Has been taking Tylenol, ibuprofen and gabapentin but pain has not improved rated today as 10/10, worse with walking, sitting, standing Denies attempts at physical therapy, acupuncture, massage or previous injections. Denies red flag symptoms including new loss of bowel, bladder or saddle anesthesia Initial visit with Georgiana CHEERLEADING COACH: Patient is a pleasant 72-year-old male with prior history of osteoarthritis, lumbar degenerative disc disease, diabetes, aortic valve replacement and right total hip replacement presents today for initial evaluation of left knee, left hip and low back pain related to osteoarthritis and fall injury. Patient reports pain started in August 2022 when he pulled left hamstring muscle while carrying heavy gal of oil. Reports pelvic and abdominal pain has been relieved. 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 Patient reports he completed physical therapy at [facility] without any significant improvement in his functioning or pain relief. His back pain is mostly axial is occasional radiation of pain into his left posterior leg this occasional tingling but no numbness. Patient reports he had completed lumbar spine MRI and was evaluated by Neurosurgery at [facility] in the past and was deemed nonsurgical. This MRI report is not available today. He denies groin pain or sacroiliac joint pain today. His main concern today is left knee pain for which he is scheduled to have series of gel injections through orthopedics office. The patient reports left knee surgical option was also discussed with him but he would like to avoid surgery at this time. He rates his pain at 7/10 today, and as the day goes on he reports his pain reaches 9/10 at work. 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 Patient denies any fever, weight changes, bladder or bowel incontinence, or saddle anesthesia. Location Left knee, left hip and low back pain Duration Since August 2022 due to a fall Characteristics of symptom or complaint Aching and stabbing, occasional tingling Aggravating or associated factors Movements, prolonged walking, climbing stairs, changing positions Relieving factors Rest, gabapentin, OTC topical applications Treatment PT at [facility], cortisone injections [facility] Surgical History History of cardiac cath (07/28/17) History of right hip replacement (08/13/17) Social History Current occupational status: employed Current occupation: [employer] Review of Systems Const All systems reviewed & are unremarkable except as noted in HPI and below Physical Exam Vital Signs: Last Vital Signs Pulse 70 11/24/24 10:17 BP 223/93 H 11/24/24 10:18 BMI result Body Mass Index 39.1 General: awake, alert, oriented. Answers questions appropriately. Fully engaged in examination. Skin: warm, dry, intact HEENT: Normocephalic. Hearing intact. Cardiac: External chest normal in appearance. Respiratory: No cough, audible wheezing or stridor. Abdomen: without gross distension. MS: No obvious swelling or deformities. Neurological: Oriented to person, place, time and situation. Thought process intact. Psychiatric: Appropriate mood and affect. Good judgment and insight. Results Reviewed Results Reviewed: 06/30/24 MR LS IMPRESSION: 1. S-shaped scoliosis, as described above, with grade 1 degenerative spondylolisthesis at L4-L5 and L5-S1 and retrolisthesis at L3-L4 and L2-L3. 2. Severe multilevel DDD and spondylosis, with multilevel disc bulging and disc osteophyte complexes with multilevel ligamentum flavum thickening and facet joint arthropathy as well as interspinous ligament degeneration. 3. Severe spinal canal stenosis at L4-L5, moderate to severe spinal canal stenosis at L3-L4 and L2-L3 with marked crowding of the intradural nerve roots. Left lateral recess stenosis at L2-L3 and L3-L4 and bilateral lateral recess stenosis at L4-L5 with multilevel traversing neural impingement. 4. Multilevel bilateral neural foraminal stenosis, most severe on the left at L4-L5 and L3-L4 and on the right at L2-L3 with multilevel exiting nerve root impingement. 5. Compression fracture deformity of the superior endplate of L2 asymmetric to the right, with marrow edema along the superior endplate asymmetric to the right suggesting incomplete healing. 6. Diffuse sarcopenia particularly involving the right psoas muscle and bilateral paraspinal musculature. 05/04/24 XR/XR sacroiliac joint min 3V IMPRESSION: * Bilateral sacroiliitis left more than right without evidence of ankylosis. * Right hip prosthesis in place. * Vascular calcifications. XR/XR lumbar spine 4V min IMPRESSION: * Mild compression fracture superior endplate of L2 indeterminant age. MRI could be utilized to assess the age of the fracture if clinically indicated. * Narrowing of intervertebral disc spaces suggest underlying degenerative disc disease. * Grade 1 anterior spondylolisthesis of L4 on L5 and L5 on S1. * Heavy aortic vascular calcifications. Assessment & Plan Assessment & Plan (1) Sacroiliac joint dysfunction of right side: Code(s): M53.3 - Sacrococcygeal disorders, not elsewhere classified Category: Medical (2) Myofascial low back pain: Code(s): M54.50 - Low back pain, unspecified Category: Medical (3) Back pain, lumbosacral: Code(s): M54.50 - Low back pain, unspecified Category: Medical (4) Spinal stenosis at L4-L5 level: Code(s): M48.061 - Spinal stenosis, lumbar region without neurogenic claudication Category: Medical Plan Patient presented to the office today for follow-up, 1 month status post right L3-4 L4-5 transforaminal epidural steroid injection Endorses 90% pain relief with improvement in functional and mobility. Continue with home exercise program Continue with medications as prescribed All questions and concerns were answered, patient agrees with the plan. Follow up when pain returned, sooner if needed Coding Level of Care Code Est Pt Level 3 (18972) Complex EM visit Add On G2211 Diagnoses Sacroiliac joint dysfunction of right side M53.3 Myofascial low back pain M54.50 Back pain, lumbosacral M54.50 Spinal stenosis at L4-L5 level M48.061
[2024-11-24 10:17] VITALS: BP 221/91; PULSE 70; BMI 39.1
[2024-11-24 10:18] VITALS: BP 223/93
[2024-11-24 10:53] VITALS: BP 140/68
== END 2024-11-24 10:40 | disposition home or self-care (01) ==
PROVIDERS: PCP Family Medicine; Visit Provider Registered Nurse Emergency
DX: M53.3 Sacrococcygeal disorders, not elsewhere classified (principal); M54.50 Low back pain, unspecified; M48.061 Spinal stenosis, lumbar region without neurogenic claudication
CPT/HCPCS: 99213; G2211

== ENCOUNTER → 2024-11-24 10:11 | Outpatient (BNVA) | payer MEDICARE, SELFPAY | PROVIDERS: PCP Family Medicine; Visit Provider Registered Nurse Emergency | DX: M53.3 Sacrococcygeal disorders, not elsewhere classified (principal); M48.061 Spinal stenosis, lumbar region without neurogenic claudication | CPT/HCPCS: 99212 ==

== ENCOUNTER 2024-12-27 08:22 | Outpatient (REF) | payer MEDICARE, SELFPAY ==
--- NOTE | 2024-12-27 08:34 | EMG_ITS ---
Chief complaint: Chronic right-sided back pain, radiates occasionally only to the right knee. History of diabetes and peripheral neuropathy. Reason for referral: Evaluate for radiculopathy Referred by: Dr. Bruce Procedure done: Right lower extremity NCS/EMG, with comparison to left Precautions and/or limitations: None The limb temperature was monitored continuously and remained between 32-36 degrees C during the performance of the NCS. Nerve Conduction Studies Anti Sensory Summary Table ?Stim Site NR Onset (ms) Norm Onset (ms) Peak (ms) Norm Peak (ms) O-P Amp (?V) Norm O-P Amp Site1 Site2 Delta-0 (ms) Dist (cm) Misha (m/s) Norm Misha (m/s) Left Sural Anti Sensory (Lat Mall) Calf NR <4.0 >5.0 Calf Lat Mall 14.0 Right Sural Anti Sensory (Lat Mall) Calf NR <4.0 >5.0 Calf Lat Mall 14.0 Motor Summary Table ?Stim Site NR Onset (ms) Norm Onset (ms) O-P Amp (mV) Norm O-P Amp iAmp (mV) Amp (1st) (%) Site1 Site2 Delta-0 (ms) Dist (cm) Misha (m/s) Norm Misha (m/s) Right Peroneal Motor (Ext Dig Brev) Ankle ? 4.5 <4.0 1.6 >2.5 1.8 100.0 Ankle Ext Dig Brev 4.5 0.0 B Fib ? 14.6 1.4 1.7 87.5 B Fib Ankle 10.1 31.5 31 >40 Poplt ? 15.8 1.5 1.9 93.8 Poplt B Fib 1.2 5.0 42 >40 Left Tibial Motor (Abd Tian Brev) Ankle ? 5.0 <5 0.7 >2.5 1.0 100.0 Ankle Abd Tian Brev 5.0 0.0 Knee ? 19.5 0.5 0.5 71.4 Knee Ankle 14.5 37.0 26 >40 Right Tibial Motor (Abd Tian Brev) Ankle ? 4.8 <5 1.2 >2.5 1.3 100.0 Ankle Abd Tian Brev 4.8 0.0 Knee ? 15.7 0.6 0.5 50.0 Knee Ankle 10.9 36.0 33 >40 EMG ?Side Muscle Nerve Root Ins Act Fibs Psw Amp Dur Poly Recrt Int Pat Comment Right AbdHallucis MedPlantar S1-2 Incr 1+ 1+ Nml Nml 0 Nml Complete Right AntTibialis Dp Br Peron L4-5 Nml Nml Nml Nml Nml 0 Nml Complete Right PostTibialis Tibial L5, S1 Nml Nml Nml Nml Nml 0 Nml Complete Right MedGastroc Tibial S1-2 Incr 1+ 1+ Nml Nml 0 Nml Complete Right VastusMed Femoral L2-4 Nml Nml Nml Nml Nml 0 Nml Complete Left AbdHallucis MedPlantar S1-2 Incr 1+ 1+ Nml Nml 0 Nml Complete Paraspinal EMG ?Side Muscle Nerve Root Ins Act Fibs Psw Comment Right Lumbar Upper Rami Nml Nml Nml Right Lumbar Mid Rami Nml Nml Nml Right Lumbar Lower Rami Nml Nml Nml FINDINGS: Right peroneal nerve showed prolonged distal latency, small amplitude and slow conduction velocity distally. No conduction block across fibular neck. Right tibial nerve showed normal distal latency, small amplitude and normal conduction velocity. Left tibial nerve showed normal distal latency, small amplitude and slow conduction velocity. Bilateral sural nerves showed absent response. Concentric needle EMG was performed in selected muscles of the bilateral lower extremities and lumbar paraspinals. Study revealed signs of electric abnormalities as shown in the table above. Bilateral adductor hallucis showed increased insertional activity, PSWs and fibrillations. Right PSWs showed increased insertional activity, small PSWs and fibrillations. No denervation seen on lumbar paraspinals. IMPRESSION: 1. This is an abnormal study. 2. There is electrodiagnostic evidence confirming bilateral symmetric distal sensorimotor neuropathy, primarily axonal features. 3. There is no electrodiagnostic evidence for lumbosacral plexopathy or lumbar radiculopathy. Thank you for your kind referral. Estefania Malin MD, DENISHA Board Certified, [employer] Board [employer] Physical [employer] and Rehabilitation (ABPMR) Board Certified, [employer] Board of Electrodiagnostic Medicine (ABEM) CODIN [id number] MTDD
== END 2024-12-27 08:23 | disposition home or self-care (01) ==
LOC: HO.NEURO 08:22
PROVIDERS: Visit Provider Anesthesiology
DX: M54.16 Radiculopathy, lumbar region (principal)
CPT/HCPCS: 95885; 95886; 95909

== ENCOUNTER → 2024-12-27 08:34 | Outpatient (BNV) | payer MEDICARE, SELFPAY | PROVIDERS: Visit Provider Physical Medicine & Rehabilitation | DX: E11.40 Type 2 diabetes mellitus with diabetic neuropathy, unspecified (principal) | CPT/HCPCS: 95885; 95886; 95909 ==

== ENCOUNTER 2024-12-29 14:39 | Outpatient (AMB) | payer MEDICARE, SELFPAY ==
--- NOTE | 2024-12-29 14:41 | A.SPINEOV_ITS ---
Intake Visit Reasons: EMG f/u ordered by Pain M Intake Note: Mr. Casarez is here today to F/u on the results to his EMG. Screen And Cyclone Repairer Required: No Allergies tizanidine Adverse Reaction (Mild, Verified 12/29/24 14:42) Confusion sulfamethoxazole [From Bactrim] Adverse Reaction (Verified 12/29/24 14:42) Itching trimethoprim [From Bactrim] Adverse Reaction (Verified 12/29/24 14:42) Itching Assessment & Plan Assessment & Plan (1) Lumbar radiculopathy: Code(s): M54.16 - Radiculopathy, lumbar region Category: Medical Plan Mr Casarez came back in to review his MRI again and discuss his pain he has been having. Since the last visit, he has had a return of the pain going down into his posterolateral thigh. It has gotten to the point now where he is almost incapacitated by it. He has been taking gabapentin, Motrin, Tylenol and it makes it barely manageable. He has an active job where he has to walk around quite a bit. He had he does not have to do any lifting but the in and out of his vehicle and walking it has gotten to where he is having a hard time doing all of his normal responsibilities. He is very frustrated. He is also having a hard time sleeping. He did recently undergo a right L3, right L4, right L5 foraminal cortisone injection with Dr. Bruce, and did have good relief for 2 weeks. He does not have any focal deficits. A recent EMG just revealed peripheral neuropathy. He is a diabetic so this is not a surprise. We went back and looked at his lumbar MRI again done here at [place], the thing that a standing up most to us is the severe stenosis at L4-5 in the right L4 foraminal stenosis. He does have a spondylolisthesis here, but has no centralized back pain. Also, we have strong suspicion that he has osteoporosis as he easily fractures bones in his body without much issue and had a previous compression fracture of his lumbar spine without any traumatic event. Therefore Dr. Fox thinks the easiest thing to do just to be do a simple decompression right L4-5 and right L4 foraminotomy. The patient understands that the success rate is not 100% but we do expect significant improvement. Pt was given risk and benefits of surgery including but not limited to infection, hematoma , nerve injury,durotomy, weakness,bowel/bladder injury, persistent pain, as well as the option to continue with conservative treatment and patient wishes to proceed with surgery. Pt is aware they should stop their motrin, aspirin 7 days prior to surgery. All questions were answered to the best of our ability. If there is anything about this patients medical history that we have overlooked or concerns you have about us proceeding with surgery we would appreciate any input you can offer. Total amount of time spent in this visit was 20 minutes in discussion of symptoms, lumbar MRI imaging results and subsequent plan of care Sunil Fox MD,PhD [facility] Coding Level of Care Code Est Pt Level 3 (58719) Diagnoses Lumbar radiculopathy M54.16
== END 2024-12-29 15:26 | disposition home or self-care (01) ==
PROVIDERS: Visit Provider Physician Assistant
DX: M54.16 Radiculopathy, lumbar region (principal)
CPT/HCPCS: 99213

== ENCOUNTER → 2024-12-29 14:39 | Outpatient (BNVA) | payer MEDICARE, SELFPAY | PROVIDERS: Visit Provider Physician Assistant | DX: M54.16 Radiculopathy, lumbar region (principal) | CPT/HCPCS: 99212 ==

== ENCOUNTER → 2025-01-10 13:58 | Outpatient (BNV) | payer MEDICARE, SELFPAY | PROVIDERS: PCP Family Medicine; Visit Provider Internal Medicine Cardiovascular Disease | DX: I49.1 Atrial premature depolarization (principal); I45.10 Unspecified right bundle-branch block | CPT/HCPCS: 93010 ==

== ENCOUNTER 2025-01-23 08:29 | Day surgery (SDC) | payer MEDICARE, SELFPAY ==
--- NOTE | 2025-01-10 | ECG_ITS ---
Test Reason : pre op Blood Pressure : */* mmHG Vent. Rate : 72 BPM Atrial Rate : 72 BPM P-R Int : 132 ms QRS Dur : 130 ms QT Int : 406 ms P-R-T Axes : 35 74 22 degrees QTcB Int : 444 ms Sinus rhythm with Premature supraventricular complexes Right bundle branch block Abnormal ECG When compared with ECG of 01-Apr-2017 11:40, Premature supraventricular complexes are now Present T wave inversion no longer evident in Inferior leads Referred By: Nicole Santoyo Electronically Signed By: Pedro Pickett
[2025-01-10 13:11] VITALS: BP 167/81; PULSE 70; RESP 16; O2SAT 97; BMI 36.8
--- NOTE | 2025-01-10 13:25 | HO.ANESPROP2 ---
Documented by User: Nicole Santoyo NP 01/22/25 10:46 HPI - Anesthesia Eval Consult details Narrative: 74yo M for Right Right L4-5 Decompression and Right L4 Foraminotomy, 01/24/25 No recent illness No CP/SOB with activity limited to back pain. Follows [facility]. Stable at 11/2024 office visit with 1 year routine f/u s/p AVR 2019 CAD s/p CABG x 2 2018 DM: Does not check POC, A1C 5.9 12/2024 GIO: Does not use CPAP ETOH Previous critical low Na @ 124 on 10/2024. Now low @ 131 with [facility] Active Problems Active Problems: All Active Problems Chronic SI joint pain (Acute) Lumbar radiculopathy (Acute) Myofascial low back pain (Acute) Sacroiliac joint dysfunction of right side (Acute) Hamstring injury (Acute) Spinal stenosis at L4-L5 level (Acute) Left knee pain (Acute) Effusion, left knee (Acute) Back pain, lumbosacral (Acute) Diabetes mellitus (Acute) Low back pain (Acute) Osteoarthritis of left knee (Acute) Osteoarthritis of left hip (Acute) History of total right hip arthroplasty (Acute) Past Medical History Medical History Hx: UTI (urinary tract infection) GIO (obstructive sleep apnea) HLD (hyperlipidemia) BPH (benign prostatic hyperplasia) Back pain Asthma Alcohol abuse Adverse effect of anesthetic CAD (coronary artery disease) Hypothyroidism Diabetes Peripheral neuropathy HTN (hypertension) Spinal stenosis Family History Family history of problems with anesthesia: No Surgical History Surgical History History of tonsillectomy and adenoidectomy Hx of colonoscopy (2024) History of open reduction and internal fixation (ORIF) procedure (~2021) Hx of CABG (~2018) Aortic valve replaced (~2018) History of cardiac cath (07/28/17) History of right hip replacement (08/13/17) History of Problems with Anesthesia: No Social History Social History Are you a primary primary care physician to a significant other at home: No Do you presently have visiting nurse or other home services: No Patient Tobacco Use Status: Never used Tobacco Use of substances other than those prescribed or required for medical reasons: No Have you been hit, kicked, punched, or otherwise hurt by someone within the past year? 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 Allergies Allergy/AdvReac Type Severity Reaction Status Date / Time sulfamethoxazole Allergy Severe Itching Verified 01/10/25 13:06 [From Bactrim] trimethoprim [From Bactrim] Allergy Severe Itching Verified 01/10/25 13:06 tizanidine AdvReac Severe Weakness Verified 01/10/25 13:06 Home Medications ?Medication ?Instructions ?Recorded ?Confirmed ?Last Taken ?Type albuterol sulfate 90 mcg/actuation 2 puff inhalation Q6H PRN wheezing 01/29/23 01/10/25 11/25/24 History aerosol inhaler atorvastatin 80 mg tablet 80 mg PO BEDTIME 01/29/23 01/10/25 01/22/25 History gabapentin 300 mg capsule 600 mg PO TID 01/29/23 01/10/25 01/23/25 History insulin degludec 100 unit/mL (3 24 - 26 unit subcut BEDTIME 01/29/23 01/10/25 01/22/25 History mL) subcutaneous pen (Tresiba FlexTouch U-100 insulin) levothyroxine 50 mcg tablet 50 mcg PO DAILY 01/29/23 01/10/25 01/23/25 History losartan 50 mg-hydrochlorothiazide 1 tab PO DAILY 01/29/23 01/10/25 01/22/25 History 12.5 mg tablet metformin 1,000 mg tablet 1,000 mg PO BID 01/29/23 01/10/25 01/22/25 History methenamine hippurate 1 gram tablet 1 g PO BID 01/29/23 01/10/25 01/22/25 History metoprolol tartrate 50 mg tablet 50 mg PO BID 01/29/23 01/10/25 01/23/25 History potassium chloride 10 mEq 10 meq PO DAILY 01/29/23 01/10/2525 History tablet,extended release ascorbic acid (vitamin C) 500 mg 500 mg PO DAILY 01/10/25 01/10/25 01/22/25 History tablet (Vitamin C) aspirin 81 mg capsule 81 mg PO DAILY 01/10/25 01/10/25 01/15/25 History cholecalciferol (vitamin D3) 25 25 mcg PO DAILY 01/10/25 01/10/25 01/22/25 History mcg (1,000 unit) capsule (Vitamin D3) chromium 100 mcg tablet 100 mcg PO DAILY 01/10/25 01/10/25 01/21/25 History insulin lispro 100 unit/mL 24 - 25 unit subcut BEDTIME 01/10/25 01/10/25 01/22/25 History subcutaneous solution (Admelog U-100 Insulin lispro) omega 8-rda-leh-fish oil 900 1 cap PO DAILY 01/10/25 01/23/25 01/15/25 History mg-1,400 mg capsule,delayed release tamsulosin 0.4 mg capsule 0.4 mg PO BEDTIME 01/10/25 01/10/25 01/22/25 History thiamine HCl (vitamin B1) 100 mg 100 mg PO DAILY 01/10/25 01/10/25 01/15/25 History tablet (Vitamin B-1) Exam Height,Weight and Vital Signs: Height 5 ft 6 in Weight 103.419 kg Last Vital Signs Pulse 70 01/10/25 13:11 Resp 16 01/10/25 13:11 BP 167/81 H 01/10/25 13:11 Pulse Ox 97 01/10/25 13:11 O2 Del Method Room Air 01/10/25 13:11 Pertinent Lab Results Pertinent Lab Results: Lab Results 01/10/25 Range/Units 14:11 WBC 6.6 (4.8-10.8) X10*3/uL RBC 3.17 L (4.60-5.80) X10*6/uL Hgb 10.0 L (14.0-18.0) g/dl Hct 30.1 L (42.0-52.0) % MCV 95.0 (80.0-98.0) fL MCH 31.5 (27.0-33.0) pg MCHC 33.2 (31.0-36.0) g/dl RDW 13.9 (11.0-16.0) % Plt Count 235 (160-400) X10*3/uL MPV 9.3 L (9.4-12.4) fL Absolute Nucleated RBC 0.000 (0.0-0.012) X10*3/uL Nucleated RBC % (auto) 0.0 (0.0-0.2) /100WBC Sodium 131 L (135-145) mmol/L Potassium 5.2 H (3.3-5.1) mmol/L Chloride 100 (96-108) mmol/L Carbon Dioxide 25 (22-29) mmol/L Anion Gap 11 L (12-20) BUN 14 (9-16) mg/dL Creatinine 0.82 (0.5-1.4) mg/dL Estim Creat Clear Calc 90.3 Estimated GFR > 60 Random Glucose 92 (60-115) mg/dL Calcium 9.0 (8.4-10.2) mg/dL Narrative Narrative: EKG 12/2024 Vent. Rate : 72 BPM Atrial Rate : 72 BPM P-R Int : 132 ms QRS Dur : 130 ms QT Int : 406 ms P-R-T Axes : 35 74 22 degrees QTcB Int : 444 ms Sinus rhythm with Premature supraventricular complexes Right bundle branch block Abnormal ECG When compared with ECG of 01-Apr-2017 11:40, Premature supraventricular complexes are now Present T wave inversion no longer evident in Inferior leads ECHO 10/2024 LV size nml with mild conc LVH and LVEF 55-60% Grade 2 DD RV mildly dilated and sys function is at the lower limits of nml AV bioprosthetic, well-seated and the gradients are nml for this valve. Mitral valve shows severe thickening with moderate stenosis. Mean gradient is 9mmHg and peak 21mmHg Tricuspid valve nml; trace regurg, no stenosis PASP 73mmHg No pericardial effusion Airway Mallampati Class: III TM Dist: >3cm Neck ROM: Full Loose/Missing/Broken Teeth: No (implants, crowns in the molars) Heart: RRR Lungs: CTAB Assessment and Plan Assessment Anesthesia Assessment: Anesthesia Plan Discussed and PAT Visit Final Anesthetic Review Family History of Problems with Anesthesia: No History of Problems with Anesthesia: No Documented by User: Rebecca Garay MD 01/23/25 12:43 PMFSH Past Medical History Medical History Hx: UTI (urinary tract infection) GIO (obstructive sleep apnea) HLD (hyperlipidemia) BPH (benign prostatic hyperplasia) Back pain Asthma Alcohol abuse Adverse effect of anesthetic CAD (coronary artery disease) Hypothyroidism Diabetes Peripheral neuropathy HTN (hypertension) Spinal stenosis Surgical History Surgical History History of tonsillectomy and adenoidectomy Hx of colonoscopy (2024) History of open reduction and internal fixation (ORIF) procedure (~2021) Hx of CABG (~2018) Aortic valve replaced (~2018) History of cardiac cath (07/28/17) History of right hip replacement (08/13/17) Social History Social History Are you a primary primary care physician to a significant other at home: No Do you presently have visiting nurse or other home services: No Patient Tobacco Use Status: Never used Tobacco Use of substances other than those prescribed or required for medical reasons: No Have you been hit, kicked, punched, or otherwise hurt by someone within the past year? 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 Allergies Allergy/AdvReac Type Severity Reaction Status Date / Time sulfamethoxazole Allergy Severe Itching Verified 01/10/25 13:06 [From Bactrim] trimethoprim [From Bactrim] Allergy Severe Itching Verified 01/10/25 13:06 tizanidine AdvReac Severe Weakness Verified 01/10/25 13:06 Home Medications ?Medication ?Instructions ?Recorded ?Confirmed ?Last Taken ?Type albuterol sulfate 90 mcg/actuation 2 puff inhalation Q6H PRN wheezing 01/29/23 01/10/25 11/25/24 History aerosol inhaler atorvastatin 80 mg tablet 80 mg PO BEDTIME 01/29/23 01/10/25 01/22/25 History gabapentin 300 mg capsule 600 mg PO TID 01/29/23 01/10/25 01/23/25 History insulin degludec 100 unit/mL (3 24 - 26 unit subcut BEDTIME 01/29/23 01/10/25 01/22/25 History mL) subcutaneous pen (Tresiba FlexTouch U-100 insulin) levothyroxine 50 mcg tablet 50 mcg PO DAILY 01/29/23 01/10/25 01/23/25 History losartan 50 mg-hydrochlorothiazide 1 tab PO DAILY 01/29/23 01/10/25 01/22/25 History 12.5 mg tablet metformin 1,000 mg tablet 1,000 mg PO BID 01/29/23 01/10/25 01/22/25 History methenamine hippurate 1 gram tablet 1 g PO BID 01/29/23 01/10/25 01/22/25 History metoprolol tartrate 50 mg tablet 50 mg PO BID 01/29/23 01/10/25 01/23/25 History potassium chloride 10 mEq 10 meq PO DAILY 01/29/23 01/10/25 01/23/25 History tablet,extended release ascorbic acid (vitamin C) 500 mg 500 mg PO DAILY 01/10/25 01/10/25 01/22/25 History tablet (Vitamin C) aspirin 81 mg capsule 81 mg PO DAILY 01/10/25 01/10/25 01/15/25 History cholecalciferol (vitamin D3) 25 25 mcg PO DAILY 01/10/25 01/10/25 01/22/25 History mcg (1,000 unit) capsule (Vitamin D3) chromium 100 mcg tablet 100 mcg PO DAILY 01/10/25 01/10/25 01/21/25 History insulin lispro 100 unit/mL 24 - 25 unit subcut BEDTIME 01/10/25 01/10/25 01/22/25 History subcutaneous solution (Admelog U-100 Insulin lispro) omega 8-nam-hew-fish oil 900 1 cap PO DAILY 03/01/23/25 01/15/25 History mg-1,400 mg capsule,delayed release tamsulosin 0.4 mg capsule 0.4 mg PO BEDTIME 01/10/25 01/10/25 01/22/25 History thiamine HCl (vitamin B1) 100 mg 100 mg PO DAILY 01/10/25 01/10/25 01/15/25 History tablet (Vitamin B-1) Assessment and Plan Final Anesthetic Review NPO: Yes ASA Class: III Final Preanesthetic Review: No Changes in Pt Med Stat, Meds/Allgs Chart Reviewed, Consent Obtained/Reviewed and Anes Risks/Benef Reviewed Patient Risk: Intermediate Procedure Risk: Intermediate Anesthetic Plan Anesthetic Plan: GA Disposition: Standard PACU
[2025-01-10 14:39] LABS: Hematocrit 30.1 % (42.0-52.0); Mean Corpuscular HGB Conc 33.2 g/dl (31.0-36.0); Mean Corpuscular Hemoglobin 31.5 pg (27.0-33.0); Mean Platelet Volume 9.3 fL (9.4-12.4); Platelet Count 235 X10*3/uL (160-400); Red Blood Count 3.17 X10*6/uL (4.60-5.80); Red Cell Distribution Width 13.9 % (11.0-16.0); White Blood Count 6.6 X10*3/uL (4.8-10.8)
[2025-01-10 15:26] LABS: Anion Gap 11 (12-20); Blood Urea Nitrogen 14 mg/dL (9-16); Carbon Dioxide 25 mmol/L (22-29); Chloride 100 mmol/L (96-108); Creatinine Clr Calc Pharmacy 90.3; Estimated Glomerular Filt Rate > 60; Glucose Random 92 mg/dL (60-115); Potassium 5.2 mmol/L (3.3-5.1); Sodium 131 mmol/L (135-145)
[2025-01-23] VITALS (8 sets, daily range): BP systolic 138–161; BP diastolic 67–85; PULSE 70–85; RESP 16; TEMP 36.1; O2SAT 95–100; BMI 37.1
--- NOTE | ~2025-01-23 | FL_ITS ---
EXAMINATION: FL GUIDANCE ONLY HISTORY: L4-L5 Decompression Right, L4 Foraminotomy Right COMPARISON: None available. TECHNIQUE: Fluoroscopy time: 3.1 seconds. Cumulative Dose: 2.2344 mGy. DAP: 0.9720 mGym2 Images: 2. FINDINGS: Images of the lumbar spine in the lateral projection demonstrate a probe at the L4-5 level and an additional catheter at the L3-4 level. FL/FL guidance in OR IMPRESSION: Fluoroscopy during procedure. Please see procedure report for additional information. Electronically signed by: Austin Gomez MD 01/23/2025 02:41 PM EDT
[2025-01-23 08:50] LABS: Glucose, Whole Blood 94 mg/dL (60-115)
[2025-01-23] MEDS: Lactated Ringers 1,000 ML 100 ML IVCONT (08:56)
[2025-01-23] MEDS: methocarbamoL 750 MG TABLET PO (08:56)
--- NOTE | 2025-01-23 12:00 | MHC.SHP ---
Pre-Procedural Eval Section A - 24 Hr Update-Section A only Date of Service: 01/23/25 The patient is an INPATIENT: No Section B - Complete if H&P > 30 days Chief Complaint: Radiculopathy, lumbar region Details of Present Illness: right leg pain Allergies: Allergies Allergy/AdvReac Type Severity Reaction Status Date / Time sulfamethoxazole Allergy Severe Itching Verified 01/10/25 13:06 [From Bactrim] trimethoprim [From Bactrim] Allergy Severe Itching Verified 01/10/25 13:06 tizanidine AdvReac Severe Weakness Verified 01/10/25 13:06 Review of Systems Sugical H&P ROS: Negative: Constitution, Cardiovascular, Respiratory, Neurological, Psychiatric, Hem-Onc, Allergic/Immunologic, Gastrointestinal, Genitourinary, Musculoskeletal, Integumentary, Endocrine and Eyes/Ears/Nose/Throat Exam Surgical H&P Exam: Normal: HEENT, Normal: Heart, Normal: Lungs, Normal: Extremities, Normal: Abdomen, Normal: Skin and Normal: Neurological (awake, alert) Plan Diagnosis/Plan: Unchanged I have reviewed the history and physical and performed a pertinent physical examination on my patient. No changes have occurred unless specified. right L4-5 decompression and L4 foraminotomy Time Spent With Patient Time: Total time managing care of this patient today ____ minutes.
--- NOTE | 2025-01-23 13:00 | P.DS_ITS ---
DS: Providers Provider Date of Service: 01/23/25 Date of discharge: 01/23/25 Primary care physician: Cornelia Medina MD Admitting clinician: Malachi Fox DS: Diagnosis Discharge Diagnosis (1) Lumbar radiculopathy: Status: Acute DS: Summary Time Attestation Discharge Coordination Time (in mins): 5 Quality: Safe Use of Opioids Does Pt have an Active Cancer Diagnosis on the Problem List?: No Quality: Stroke Does the patient have a stroke diagnosis?: No Physical Exam Vital Signs: Vital Signs: Last Vital Signs Pulse 70 01/10/25 13:11 Resp 16 01/10/25 13:11 BP 167/81 H 01/10/25 13:11 Pulse Ox 97 01/10/25 13:11 O2 Del Method Room Air 01/10/25 13:11 BMI result Body Mass Index 37.1 DS: Data Data Completed and Pending Labs on day of discharge: Laboratory Results - last 24 hr 01/23/25 08:43 POC Glucose 94 Discharge Plan Discharge Patient Disposition: Home, Self-Care Referrals: Cornelia Medina MD [Primary Care Provider] - 1 Week Discharge Medications: New tramadol 50 mg tablet 50 mg PO Q8H PRN (Reason: pain) Qty: 30 0RF docusate sodium [Colace] 100 mg capsule 100 mg PO BID Qty: 20 0RF Continued methocarbamol 500 mg tablet 500 mg PO TID PRN (Reason: muscle spasm) Qty: 60 3RF Rx Instructions: No driving while taking this medication. Do no take with alcohol or other FUEL CE[employer] REPA[employer]ER Depressants diclofenac potassium 50 mg tablet 50 mg PO BID Qty: 60 0RF Rx Instructions: Take with food, do not take with any other nonsteroidal anti-inflammatory medications. tamsulosin 0.4 mg Capsule 0.4 mg PO BEDTIME aspirin 81 mg Capsule 81 mg PO DAILY chromium 100 mcg Tablet 100 mcg PO DAILY thiamine HCl (vitamin B1) [Vitamin B-1] 100 mg Tablet 100 mg PO DAILY ascorbic acid (vitamin C) [Vitamin C] 500 mg Tablet 500 mg PO DAILY insulin lispro [Admelog U-100 Insulin lispro] 100 unit/mL solution 24 - 25 unit subcut BEDTIME cholecalciferol (vitamin D3) [Vitamin D3] 25 mcg (1,000 unit) Capsule 25 mcg PO DAILY omega 2-nej-vxn-fish oil 900-1,400 mg Capsule,Delayed Release(Dr/Ec) 1 cap PO DAILY gabapentin 300 mg capsule 600 mg PO TID metformin 1,000 mg tablet 1,000 mg PO BID insulin degludec [Tresiba FlexTouch U-100] 100 unit/mL (3 mL) insulin pen 24 - 26 unit subcut BEDTIME metoprolol tartrate 50 mg tablet 50 mg PO BID atorvastatin 80 mg tablet 80 mg PO BEDTIME albuterol sulfate 90 mcg/actuation HFA aerosol inhaler 2 puff inhalation Q6H PRN (Reason: wheezing) losartan-hydrochlorothiazide 50-12.5 mg tablet 1 tab PO DAILY methenamine hippurate 1 gram tablet 1 g PO BID potassium chloride 10 mEq tablet extended release 10 meq PO DAILY levothyroxine 50 mcg tablet 50 mcg PO DAILY Discharge Orders: Discharge Order (Routine); Ordered 01/23/25 Ordered By: Sunil Fine Diet: Advance to usual diet Activity on Discharge: As tolerated Activity Restrictions/Additional Instructions: After your spinal surgery we ask you to observe the following restrictions/guidelines: Activity: It is normal to feel some discomfort as you increase your activity, but that will improve with time. We ask you avoid heavy lifting or acitivities that cause pain. As a general rule, 8lbs is a safe limit for lifting right after surgery. Walk as much as you feel comfortable but not to exhaustion. You will feel extra tired the first few days after surgery. Stay well hydrated. It is OK to walk up and down stairs You may return to driving when you are off narcotics (such as vicodin, oxycodone, dilaudid, etc), and you are back to normal functional capacity. If you have any concerns please check with office before driving. Return to work is specific to each patient and each surgery, so please speak with your doctor/PA at first follow up. Please bring paperwork such as FMLA at that time if you need it filled out. Medications: For optimum pain control, it is best to start with a combination of 500 mg of Tylenol every 4 hours with 600 mg of Motrin every 8 hours, and use narcotics as needed in between for breakthrough pain. We will give you a short supply of narcotics after surgery (usually one weeks worth). If you need more please call the office but do not use more than prescribed. You will need to give our office 48 hours notice if you need narcotics refilled and we do not fill narcotics on weekends or evenings. If you are on a narcotic, it is a good idea to take a stool softener such as colace or senna to avoid constipation If you take blood thinner such as aspirin, Plavix, Coumadin, Effient, Eliquis etc for conditions such as Afib, DVT, Pulmonary embolus, coronary disease, stents etc please speak with your surgeon about specific details as to when you can resume these medications. You can resume NSAIDs on post op day 1 (eg: Motrin, Naproxen, etc). Follow up: Please call the office, , after surgery to arrange a 3 week follow up for wound check. Wound Care: You may remove your dressing on the first day after surgery. You may leave open to air. Please do not remove the steri strips underneath. they will fall off on their own in one week. IT IS NORMAL FOR THE WOUND TO OOZE OR BE BLOODY FOR A FEW DAYS AFTER SURGERY. IF THIS HAPPENS JUST PLACE NEW DRESSING OVER IT TO AVOID STAINING CLOTHES. You may shower on post op day # 1 We ask that you do not let the water soak the wound. If it does get wet, just towel dry lightly. Please do not scrub your incision or place any type of chemical/ointment on the wound. No tub baths, pools or jacuzzis for one month. If you have any leaking or redness from your wound, or fevers, please call office Print Language: Divehi
[2025-01-23] MEDS: ceFAZolin Sodium/Dextrose,Iso 2 GM/50 ML PIGGYBACK IV (13:20)
[2025-01-23] MEDS: Acetaminophen 1,000 MG/100 ML PIGGYBACK 400 MG IV (13:20)
--- NOTE | 2025-01-23 14:25 | P.OP_ITS ---
Operative Note Operative Note Date of Service: 01/23/25 Narrative: Preoperative Diagnosis: Grade 3 L4-5 lumbar spondylolisthesis, spinal stenosis/lateral recess stenosis/neural foraminal stenosis Operation: Right L4-5 [] Laminotomy, Partial facetectomy and foraminotomy with use of microscope Consent Informed Consent was obtained for this operation. I have explained the nature, purpose and benefits of the operation. I have discussed the risks and benefit of the operation including possible complications or adverse events with patient/family. Alternative(s) were discussed with the patient with their relative benefits and risks as well as the consequences of not accepting the op eration were included in obtaining consent. Surgeon: DAVID HANSEN MD, PHD Procedure Assisted By: Sunil Pro Description of Procedure This 74-year-old male is suffering from right lumbar radiculopathy. MRI and x- rays showed a grade 1 spondylolisthesis. The patient was offered a right-sided decompression to decompress the L4 and L5 nerve roots. The procedure complications were explained. The patient was consented. The patient was brought to the operating room and endotracheally intubated. The patient was turned in prone position on the Leno frame. Prep and drape was done followed by timeout. A initial x-ray was taken which showed that the spondylolisthesis increase to a grade 3 in a supine position. I was unsure if I was able to do the decompression and this patient would be much better off with a lumbar fusion. However he has a history of spontaneous fractures and therefore hesitant to offer him an fusion from the start. We decided to proceed as planned. The ysician funeral home assistant provided access. A mid lumbar incision was made followed by release of the paravertebral muscle on the right side to expose the right L4-5 lamina and facet joint. An intraoperative x-ray was obtained to confirm the correct level. The microscope was brought in. I took over the procedure. The high-speed drill was used to do a right L4-5 laminotomy until flavum ligament was reached. I could clearly palpate the large listhesis. The bone quality was surprisingly good. I was able to palpate the L4 foramina no significant stenosis was found. However it was much more difficult to identify the L5 nerve root and to decompress due to the amount of spondylolisthesis. We decided to not further pursue any decompression as this patient requires a lumbar fusion to address the instability and to reduce the spondylolisthesis, which would indirectly decompress the nervous structures. Decompressing the nerve root without stabilization would only cause more instability and pain. The microscope was removed. Hemostasis was done. The physician funeral home assistant close the Incision in 2 layers. Steri-Strips were used to approximate incision. An OpSite with Tegaderm was used to cover the incision. All sponge needle counts were correct. Patient was extubated and transported in stable is to recovery room. Anesthesia: General Estimated Blood Loss (ml): 20 Complications: None Duration of Surgery: Under 60 Minutes Postoperative Plan: Discharge to home We will offer the patient an oblique lumbar interbody fusion L4-5 to properly treat his back pain and neurogenic claudication symptoms.
[2025-01-23] MEDS: fentaNYL citrate/PF 100 MCG/2 ML VIAL 25 MCG IVPUSH ×2 (15:09→15:14)
== END 2025-01-23 16:22 | disposition home or self-care (01) ==
PROVIDERS: Nurse Practitioner; PCP Family Medicine; Visit Provider Neurological Surgery
PROC: (CPT 63047; principal; 2025-01-23 11:40)
DX: M54.16 Radiculopathy, lumbar region (principal); M48.061 Spinal stenosis, lumbar region without neurogenic claudication; M43.16 Spondylolisthesis, lumbar region; E11.9 Type 2 diabetes mellitus without complications; G62.9 Polyneuropathy, unspecified; G47.33 Obstructive sleep apnea (adult) (pediatric); Z79.82 Long term (current) use of aspirin; Z79.4 Long term (current) use of insulin; Z79.84 Long term (current) use of oral hypoglycemic drugs; Z79.899 Other long term (current) drug therapy; Z88.2 Allergy status to sulfonamides; Z88.8 Allergy status to other drugs, medicaments and biological substances
CPT/HCPCS: 63047; 36415; 80048; 82947; 85027; 93005; J0131; J0690; J1100; J1885; J2003; J2250; J2405; J2704; J3010

== ENCOUNTER → 2025-01-23 08:29 | Outpatient (BNV) | payer MEDICARE, SELFPAY | PROVIDERS: PCP Family Medicine; Visit Provider Neurological Surgery | DX: M54.16 Radiculopathy, lumbar region (principal) | CPT/HCPCS: 63047; 99499 ==

== ENCOUNTER 2025-02-06 22:05 | Inpatient (IN) | payer MEDICARE, SELFPAY ==
--- NOTE | 2025-02-06 | ECG_ITS ---
Test Reason : TACHYCARDIA Blood Pressure : */* mmHG Vent. Rate : 127 BPM Atrial Rate : 127 BPM P-R Int : 138 ms QRS Dur : 114 ms QT Int : 316 ms P-R-T Axes : 70 265 67 degrees QTcB Int : 459 ms Sinus tachycardia with occasional Premature atrial complexes Right bundle branch block Abnormal ECG When compared with ECG of 10-Jan-2025 13:58, Vent. rate has increased by 55 bpm QRS axis Shifted left Referred By: Generic ED Physician Electronically Signed By: ANTONI OLIVAS MD
--- NOTE | ~2025-02-06 | CT_ITS ---
CLINICAL HISTORY: 2 weeks post-op, tachy, low sats CT Angiography Chest W Contrast 3D Postprocessing COMPARISON: CR - XR CHEST 1V - 02/06/25 23:28 EDT FINDINGS: Detail limited by artifacts. No pulmonary embolism. No thoracic aortic aneurysm or dissection. No consolidation. Mild patchy atelectasis. Scattered nodular densities in the right lung measuring up to 8 mm (series 6, image 64). No pleural effusion. No pneumothorax. Cardiomegaly. No pericardial effusion. No pathologically enlarged lymph nodes. No acute fracture. Status post median sternotomy. Diffusely hypodense liver consistent with hepatic steatosis. Hepatomegaly. IMPRESSION: No acute findings. No pulmonary embolism. Right pulmonary nodules. Recommend follow-up chest CT in 3-6 months per Fleischner Society guidelines. Nonemergent/incidental findings above. This document has been electronically signed by: Raman Gibbs MD on 02/07/2025 03:05:49
--- NOTE | ~2025-02-06 | XR_ITS ---
CLINICAL HISTORY: fever Chest X-ray, 1 View COMPARISON: None FINDINGS: Left lower lung atelectasis or infiltrate. Right mid to lower lung atelectasis. No pleural effusion. No pneumothorax. Cardiomegaly. No acute fracture. Status post median sternotomy. IMPRESSION: Left lower lung atelectasis or infiltrate. Nonemergent/incidental findings above. This document has been electronically signed by: Raman Gibbs MD on 02/07/2025 00:01:19
--- NOTE | ~2025-02-06 | XR_ITS ---
CLINICAL HISTORY: cough, dyspnea --- Additional Notes or Special Instructions: Transport bringing pt down [id number] DG 2 view chest x-ray. Comparison: CR/SR - XR CHEST 1V - 02/08/25 11:[address]/SR - CT ANGIO CHEST PE PROTOCOL - 02/07/25 01:35 EDT Findings: Normal lung volumes. Diffuse interstitial and bronchial wall thickening No pneumothorax or pleural effusion. Borderline cardiomegaly.Post median sternotomy /valvuloplasty. No midline shift or tracheal deviation. No acute fracture. Impression: 1. Diffuse interstitial and bronchial wall thickening and left lower lobe probable atelectasis has slightly progressed. This document has been electronically signed by: Shahram Simmons MD on 02/12/2025 11:38:44
--- NOTE | ~2025-02-06 | MR_ITS ---
EXAMINATION: MR LUMBAR SPINE WITH AND WITHOUT CONTRAST CLINICAL INFORMATION: Postoperative, evaluate for abscess/infection. COMPARISON: 06/30/2024 MR Lumbar without contrast. TECHNIQUE: Multiplanar multisequence MR imaging of the lumbar spine was done both before and after the administration of 10 mL IV Gadavist. Examination was performed on a 1.5 Awilda Siemens magnet, utilizing standard sequences. FINDINGS: POSTOP CHANGES: There has been interval right hemilaminectomy at L3-4, with postoperative tract seen extending to the scan (series 11, image 29). There is expected enhancement along the tract and in the surrounding paraspinous musculature, with mild associated expected edema. There is a tiny fluid collection in the soft tissues dorsal to the spinous process, with mild enhancement, measuring approximately 4.0 x 1.0 x 2.5 cm (series 11, image 26; series 5, image 9). Compared with the preoperative scan, there is edema and enhancement throughout the spinous processes of L3, L4, and L5, with edema extending into the paraspinous soft tissues, unusual for postoperative changes. Infection is considered more likely. In addition, there is enhancement and swelling of the dorsal epidural fat at L2-3, L3-4, and L4-5, with mildly worsening mass effect on the dorsal thecal sac (series 12, images 9-10; series 11, images 19-35). There is resulting mildly increasing central canal stenosis at L4-5, (now severe) (series 10, image 23), stable severe central canal stenosis at L3-4 (series 10, image 18), and stable severe central canal stenosis at L4-5 (series 10, image 29) although there is now fluid in both facet joints suggesting possible development of septic arthropathy. In addition, there is increasing bone marrow edema throughout the inferior two thirds of the L2 vertebral body, and a superior one third of the L3 vertebral body, suggesting possible developing discitis/osteomyelitis. There is extensive dural enhancement and mild thickening spanning L1-2 level, through mid L5 level, with dural enhancement extending through the termination of the thecal sac at S2, all findings suggesting infection, as this is too extensive to be postoperative in nature. There is no discrete epidural or intradural abscess identified at this time. Spondylotic findings, and mild levoconvex scoliosis are stable from preoperative examination. Please refer to that report, which was quite detail. MR/MR lumbar spine wo/w con IMPRESSION: 1. Postoperative right hemilaminectomy and microdiscectomy at L3-4. 2. Findings suggesting developing discitis/osteomyelitis at L2-3 with increasing edema throughout the L2 and superior L3 vertebral bodies. 3. Findings suggesting developing osteomyelitis/septic arthritis involving the L4-5 facet joints, with bone marrow edema also noted throughout the spinous processes of L3 and L4, also suspicious for developing infection. 4. There is diffuse dural enhancement and mild thickening throughout the lumbar spine spanning L1-2 through the termination of the thecal sac at S2. There is no discrete intradural or epidural abscess at this time. Swelling of the dorsal epidural fat pad L2-3, L3-4, and L4-5 is present, with mildly worsening mass effect on the dorsal thecal sac at these levels. There is worsening severe central canal stenosis at L4-5 which is now severe. 5. There is a small right paraspinous fluid collection along the surgical tract measuring 4.0 x 1.0 x 2.5 cm as discussed above. Unknown if this is a small abscess versus a postoperative seroma, although given the degree of surrounding enhancement, infection is suspected. 6. Stable extensive spondylotic findings otherwise, of which referral to the prior report is recommended. Electronically signed by: Bobby Pena MD 02/08/2025 08:35 AM EDT
--- NOTE | ~2025-02-06 | XR_ITS ---
EXAMINATION: XR CHEST 1 VIEW HISTORY: dyspnea COMPARISON: Comparison is made with the prior examination dated 02/06/2025. FINDINGS: A single AP portable view of the chest performed at 11:09 AM is submitted. There are low lung volumes. The examination is also limited by patient body habitus. There may be airspace opacity at the left lung base. There is no pleural effusion, pneumothorax, or pulmonary vascular congestion. The heart is enlarged. The patient is status post median sternotomy. There is degenerative disc disease of the spine. XR/XR chest 1V IMPRESSION: Limited examination due to low lung volumes and patient body habitus. Possible left basilar infiltrate. PA and lateral views are recommended when the patient is able. Electronically signed by: Austin Gomez MD 02/08/2025 12:27 PM EDT
[2025-02-06 22:08] VITALS: BP 173/78; PULSE 128; RESP 24; TEMP 37.3; O2SAT 95; BMI 34.1
--- NOTE | 2025-02-06 22:18 | PC.NURSE ---
charge master analyst kirstin aware of pt vitals. pt getting ekg and lab work done at this time
--- NOTE | 2025-02-06 22:34 | ED_ITS ---
HPI - General Adult General Chief complaint: Back Pain/Injury Stated complaint: Back pain Time Seen by Provider: 02/06/25 22:34 History of Present Illness ED Provider: Giovanny LANDA narrative: The patient is a 74-year-old male with a history of type 2 diabetes, hypertension, and elevated cholesterol. Additionally approximately 5 years ago he had open heart surgery with a triple-vessel bypass and an aortic valve replacement. Two weeks ago he had low back surgery. He had an L4-L5 laminectomy, partial facetectomy, and foraninotomy by Dr. Gorman and Dr. Fox. The patient says that following the surgery he felt significant relief from the pain he has been experiencing in his low back. He felt well enough that he went on a trip to [place]. While in [place] he started to experience pain in his low back and also was having drainage from the wound site in his low back. These symptoms started about 1 week ago. He contacted his surgeon who prescribed doxycycline over the phone. He stayed in [place]. Yesterday he went to an emergency room in [facility]. He apparently had an MRI of his lower back at the emergency room yesterday. He is not certain what the MRI showed but he was discharged with instructions to continue doxycycline. He spent today driving back to this area from [place]. He drove to his home in [place]. He then had a friend drive him from [place] to the hospital here. He has felt feverish. He has pain in his lower back. He has had trouble walking because of pain. He has had trouble controlling his urine because of his prolonged driving and pain in moving around but he is not certain that he is truly incontinent. Related Data Home Medications ?Medication ?Instructions ?Recorded ?Confirmed albuterol sulfate 90 mcg/actuation 2 puff inhalation Q6H PRN wheezing 01/29/23 01/10/25 aerosol inhaler atorvastatin 80 mg tablet 80 mg PO BEDTIME 01/29/23 01/10/25 gabapentin 300 mg capsule 600 mg PO TID 01/29/23 01/10/25 insulin degludec 100 unit/mL (3 24 - 26 unit subcut BEDTIME 01/29/23 01/10/25 mL) subcutaneous pen (Tresiba FlexTouch U-100 insulin) levothyroxine 50 mcg tablet 50 mcg PO DAILY 01/29/23 01/10/25 losartan 50 mg-hydrochlorothiazide 1 tab PO DAILY 01/29/23 01/10/25 12.5 mg tablet metformin 1,000 mg tablet 1,000 mg PO BID 01/29/23 01/10/25 methenamine hippurate 1 gram tablet 1 g PO BID 01/29/23 01/10/25 metoprolol tartrate 50 mg tablet 50 mg PO BID 01/29/23 01/10/25 potassium chloride 10 mEq 10 meq PO DAILY 01/29/23 01/10/25 tablet,extended release ascorbic acid (vitamin C) 500 mg 500 mg PO DAILY 01/10/25 01/10/25 tablet (Vitamin C) aspirin 81 mg capsule 81 mg PO DAILY 01/10/25 01/10/25 cholecalciferol (vitamin D3) 25 25 mcg PO DAILY 01/10/25 01/10/25 mcg (1,000 unit) capsule (Vitamin D3) chromium 100 mcg tablet 100 mcg PO DAILY 01/10/25 01/10/25 insulin lispro 100 unit/mL 24 - 25 unit subcut BEDTIME 01/10/25 01/10/25 subcutaneous solution (Admelog U-100 Insulin lispro) omega 9-tqs-pre-fish oil 900 1 cap PO DAILY 01/10/25 01/23/25 mg-1,400 mg capsule,delayed release tamsulosin 0.4 mg capsule 0.4 mg PO BEDTIME 01/10/25 01/10/25 thiamine HCl (vitamin B1) 100 mg 100 mg PO DAILY 01/10/25 01/10/25 tablet (Vitamin B-1) Previous Rx's ?Medication ?Instructions ?Recorded methocarbamol 500 mg tablet 500 mg PO TID PRN muscle spasm #60 10/19/24 tabs diclofenac potassium 50 mg tablet 50 mg PO BID #60 tabs 01/02/25 docusate sodium 100 mg capsule 100 mg PO BID #20 caps 01/23/25 (Colace) tramadol 50 mg tablet 50 mg PO Q8H PRN pain #30 tabs 01/23/25 doxycycline hyclate 100 mg capsule 100 mg PO BID Surgical prophylaxis 02/01/25 #10 caps Allergies Allergy/AdvReac Type Severity Reaction Status Date / Time sulfamethoxazole Allergy Severe Itching Verified 02/06/25 22:11 [From Bactrim] trimethoprim [From Bactrim] Allergy Severe Itching Verified 02/06/25 22:11 tizanidine AdvReac Severe Weakness Verified 02/06/25 22:11 Review of Systems 2 Review of Systems: Yes all other systems are reviewed and are negative [facility] Past Medical History Medical History Hx: UTI (urinary tract infection) GIO (obstructive sleep apnea) HLD (hyperlipidemia) BPH (benign prostatic hyperplasia) Back pain Asthma Alcohol abuse Adverse effect of anesthetic CAD (coronary artery disease) Hypothyroidism Diabetes Peripheral neuropathy HTN (hypertension) Spinal stenosis Surgical History History of tonsillectomy and adenoidectomy Hx of colonoscopy (2024) History of open reduction and internal fixation (ORIF) procedure (~2021) Hx of CABG (~2018) Aortic valve replaced (~2018) History of cardiac cath (07/28/17) History of right hip replacement (08/13/17) Social History Social History Are you a primary personal carer to a significant other at home: No Do you presently have visiting nurse or other home services: No Patient Tobacco Use Status: Never used Tobacco Smoked in Last 30 Days: No Use of substances other than those prescribed or required for medical reasons: No Advance Directives: No Advance Directives Information Provided: Yes Do you have a plan to hurt others: No Plan Current occupational status: employed Current occupation: [employer] Physical Exam ED Vital Signs: Vital Signs - 24 hr 02/06/25 22:08 02/06/25 23:07 02/06/25 23:08 Temperature 99.2 F 103.2 F H Pulse Rate 128 H 120 H Respiratory Rate 24 H 20 Blood Pressure 173/78 H Pulse Oximetry 95 Oxygen Delivery Method Room Air Oxygen Flow Rate 02/07/25 00:00 02/07/25 01:21 02/07/25 02:18 Temperature 101.5 F H Pulse Rate 94 95 Respiratory Rate 20 18 20 Blood Pressure 98/44 L 132/64 Pulse Oximetry 94 Oxygen Delivery Method Room Air Oxygen Flow Rate 02/07/25 02:19 02/07/25 02:49 02/07/25 03:15 Temperature Pulse Rate 99 Respiratory Rate 20 18 19 Blood Pressure 119/56 L Pulse Oximetry Oxygen Delivery Method Oxygen Flow Rate 02/07/25 03:38 02/07/25 03:38 02/07/25 04:06 Temperature Pulse Rate 91 Respiratory Rate Blood Pressure 133/61 Pulse Oximetry 87 L 94 Oxygen Delivery Method Room Air Room Air Oxygen Flow Rate 02/07/25 04:22 Temperature Pulse Rate 91 Respiratory Rate 16 Blood Pressure 133/61 Pulse Oximetry 95 Oxygen Delivery Method Nasal Cannula Oxygen Flow Rate 2 BMI result Body Mass Index 34.1 Const Other: The patient is awake and alert. He lookd uncomfortable and tremulous and seemed somewhat ill. HENMT Other: Face is symmetrical. Mucous membranes not obviously dry. Eyes General: appearance normal, both eyes and all related structures Eyelids: Yes eyelids normal Conjunctivae: conjunctivae normal Corneas: corneas normal Pupils: Equal, round and reactive pupils present Neck Neck: Yes normal visual inspection, Yes full ROM and Yes no lymphadenopathy Resp Other: No obvious increased work of breathing. No definite wheezes or crackles. Cardio Rate: tachycardic Rhythm: regular rhythm Heart sounds: S1 normal heart sound present and S2 normal heart sound present GI Other: The abdomen is soft and nontender Back/Spine/Pelvis Other: The patient has a small surgical scar in the lower lumbar spine. There was some drainage of serosanguineous fluid. No marked erythema to the wound edges. Skin Other: The skin was pale and dry Neuro Other: The patient is awake and alert with a normal mental status. Cranial nerves are grossly intact. I think he has intact strength in all of his extremities. He has pain with moving his legs but I think he has reasonably good strength. He reports normal sensation in his legs. Cranial nerves: Yes Equal, round and reactive pupils present Extrem Other: No calf swelling or tenderness, no asymmetry Medications Administered Generic Name Dose Route Start Last Admin Trade Name Freq PRN Reason Stop Dose Admin Hydromorphone HCl 0.5 mg 02/07/25 06:17 02/07/25 06:28 Hydromorphone Hcl 0.5 Mg/0.5 Ml Syringe IVPUSH 0.5 mg Q3H PRN Administration Pain, Severe (Pain Scale 7-10) Protocol Lactated Ringer's 1,000 mls @ 100 mls/hr 02/07/25 05:00 02/07/25 06:12 Lr IVCONT Not Given .Q10H RAPHAEL Piperacillin Sod/Tazobactam 100 mls @ 200 mls/hr 02/07/25 05:00 02/07/25 06:31 Sod 4.5 gm/ Sodium Chloride IV Infused Q6H RAPHAEL Infusion Pantoprazole Sodium 40 mg 02/07/25 06:30 02/07/25 06:28 Pantoprazole Sodium 40 Mg/10 Ml Vial IVPUSH 40 mg DAILY@0630 RAPHAEL Administration Discontinued Medications Generic Name Dose Route Start Last Admin Trade Name Freq PRN Reason Stop Dose Admin Aspirin 162 mg 02/07/25 05:14 02/07/25 05:48 Aspirin 81 Mg Tab.Chew PO 02/07/25 05:15 162 mg ONCE ONE Administration Enoxaparin Sodium 100 mg 02/07/25 05:14 02/07/25 05:49 Enoxaparin Sodium 100 Mg/Ml Syringe SUBCUT 02/07/25 05:15 100 mg ONCE ONE Administration Hydromorphone HCl 0.5 mg 02/06/25 22:56 02/06/25 23:07 Hydromorphone Hcl 0.5 Mg/0.5 Ml Syringe IVPUSH 02/06/25 22:57 0.5 mg ONCE ONE Administration Protocol Hydromorphone HCl 0.5 mg 02/07/25 01:22 02/07/25 02:19 Hydromorphone Hcl 0.5 Mg/0.5 Ml Syringe IVPUSH 02/07/25 01:23 0.5 mg ONCE ONE Administration Protocol Piperacillin Sod/Tazobactam 100 mls @ 200 mls/hr 02/06/25 22:47 02/07/25 00:30 Sod 4.5 gm/ Sodium Chloride IV 02/06/25 23:16 Infused ONCE ONE Infusion Vancomycin HCl 2,000 mg in 500 mls @ 250 mls/hr 02/06/25 22:48 02/07/25 02:56 Vancomycin/Ns IV 02/07/25 00:47 Infused ONCE ONE Infusion Sodium Chloride 1,000 mls @ 999 mls/hr 02/06/25 23:00 02/07/25 02:00 Ns IV 02/07/25 00:00 Infused .Q1H1M RAPHAEL Infusion Acetaminophen 1,000 mg in 100 mls @ 400 mls/hr 02/06/25 23:18 02/07/25 00:15 Ofirmev IV 02/06/25 23:32 Infused ONCE ONE Infusion Sodium Chloride 1,000 mls @ 999 mls/hr 02/06/25 23:45 02/07/25 03:05 Ns IV 02/07/25 00:45 Infused .Q1H1M RAPHAEL Infusion Lactated Ringer's 1,000 mls @ 999 mls/hr 02/07/25 02:15 02/07/25 04:50 Lr IV 02/07/25 03:15 Infused .Q1H1M RAPHAEL Infusion Magnesium Sulfate 2 gm in 50 mls @ 150 mls/hr 02/07/25 04:39 02/07/25 06:31 Magnesium Sulfate/H2o IV 02/07/25 04:58 Infused ONCE ONE Infusion Iohexol 85 ml 02/07/25 01:43 02/07/25 01:44 Iohexol 350 Mg/Ml 100 Ml Infus..Btl IV 02/07/25 01:44 85 ml ONCE ONE Administration Medical Decision Making Medical Decision Making [facility] Narrative: The patient is a 74-year-old male who is 2 weeks postoperative from lower lumbar surgery. He describes having problems for about a week. He has had some drainage from the surgical site and he has had worsening pain in his lower back. He was seen at an emergency room in [place] on February 04. At that time he seemed to have normal vital signs and he had a CT with IV contrast of the lumbar spine that showed postoperative changes but no abscess or other concerning findings. He has been on doxycycline for several days. He had worsening symptoms today including shaking chills. Despite his symptoms he was able to drive himself from [facility] to [place]. After getting home in [place] he had a friend drive him to the emergency room here. The patient has heart rate was in the 120s and 30s. His rectal temperature was 103 degrees. Fortunately the patient did not seem to have any obvious neurological deficits that would relate to his recent surgery. He seems to have intact function of his legs and he does not seem to have had actual urinary incontinence. He has had no fecal incontinence. His bladder scan does not show any signs of urinary retention. Since the patient was tachycardic and was having oxygen saturations around 90% I had some concern that he might have either a pneumonia or a pulmonary embolism or both. Chest x-ray was read as possibly showing a left lower lobe infiltrate but this was an equivocal reading. A CT pulmonary angiogram however does not show any obvious sign of pneumonia. Also no PE. The patient's urinalysis does not suggest a UTI. The patient's abdominal exam is benign. The patient's mental status is clear. Ultimately I think the source of the patient's fever may be a wound infection although he is not exhibiting any neurological compromise. The patient was treated promptly with IV antibiotics including piperacillin/tazobactam and vancomycin. He was given IV fluids. His lactate was 2.0. I communicated with Sunil Gorman of spine surgery. The patient will be admitted for IV antibiotics. The patient will be admitted to the hospitalist service. The spine surgery team will be seeing the patient this morning. Lab Data 02/07/25 04:22 02/07/25 04:22 Labs: Lab Results 02/06/25 02/06/25 02/07/25 Range/Units 22:28 23:19 01:50 WBC 8.4 (4.8-10.8) X10*3/uL RBC 3.04 L (4.60-5.80) X10*6/uL Hgb 9.6 L (14.0-18.0) g/dl Hct 28.3 L (42.0-52.0) % MCV 93.1 (80.0-98.0) fL MCH 31.6 (27.0-33.0) pg MCHC 33.9 (31.0-36.0) g/dl RDW 14.0 (11.0-16.0) % Plt Count 219 (160-400) X10*3/uL MPV 9.1 L (9.4-12.4) fL Immature Gran % (Auto) 0.6 H (0.0-0.4) % Neut % (Auto) 87.7 H (45-73) % Lymph % (Auto) 2.9 L (20-40) % [place] % (Auto) 8.4 (2-11) % Eos % (Auto) 0.0 (0-4) % Baso % (Auto) 0.4 (0-2) % Lymph # (Auto) 0.2 L (1.2-4.9) X10*3/uL [place] # (Auto) 0.7 (0.1-1.2) X10*3/uL Eos # (Auto) 0.0 (0.0-0.4) X10*3/uL Baso # (Auto) 0.0 (0.0-0.2) X10*3/uL Abs Immat Gran (auto) 0.05 H (0.00-0.03) X10*3/uL Absolute Neuts (auto) 7.4 (2.0-8.3) x10*3/uL Absolute Nucleated RBC 0.000 (0.0-0.012) X10*3/uL Nucleated RBC % (auto) 0.0 (0.0-0.2) /100WBC ESR 81 H (0-15) MM/HR Hold Purple Top Sodium 133 L (135-145) mmol/L Potassium 5.0 (3.3-5.1) mmol/L Chloride 97 (96-108) mmol/L Carbon Dioxide 23 (22-29) mmol/L Anion Gap 18 (12-20) BUN 24 H (9-16) mg/dL Creatinine 1.05 (0.5-1.4) mg/dL Estim Creat Clear Calc 72.3 Estimated GFR > 60 POC Glucose (60-115) mg/dL Random Glucose 225 H (60-115) mg/dL Lactic Acid 2.0 (0.5-2.0) mmol/L Calcium 9.4 (8.4-10.2) mg/dL Magnesium 1.2 L* (1.6-2.6) mg/dL Total Bilirubin 1.4 H (0.0-1.0) mg/dL AST 56 H (5-37) U/L ALT 58 H (0-40) U/L Alkaline Phosphatase 128 H (39-117) U/L Troponin I High Sens 245.9 H* 726.9 H* D (<3.5-35.0) ng/L C-Reactive Protein 20.98 H (< or = 0.50) mg/dL B-Natriuretic Peptide 764 H (<100) pg/mL Total Protein 7.0 (6.5-8.0) g/dL Albumin 3.7 (3.5-5.0) g/dL Lipase 16 (8-78) U/L TSH 0.58 (0.32-4.0) uIU/mL Free T4 0.97 (0.71-1.85) ng/dL Urine Color Yellow Urine Appearance Clear Urine pH 7.0 (5.0-9.0) Ur Specific [place] 1.015 (1.005-1.025) Urine Protein 100 (2+) H (Neg-Trace) mg/dL Urine Glucose (UA) Negative (Negative) mg/dL Urine Ketones Negative (Negative) mg/dL Urine Blood Negative (Negative) Urine Nitrite Negative (Negative) Ur Leukocyte Esterase Trace H (Negative) Urine RBC 0-2 (0-2) /HPF Urine WBC 0-5 (0-5) /HPF Ur Squamous Epith Cells 0-2 (0-2) /HPF Urine Bacteria None Seen (None Seen) Hyaline Casts 0-2 (0-2) /LPF 02/07/25 02/07/25 Range/Units 02:01 04:22 WBC 8.2 (4.8-10.8) X10*3/uL RBC 2.44 L (4.60-5.80) X10*6/uL Hgb 7.8 L (14.0-18.0) g/dl Hct 23.0 L (42.0-52.0) % MCV 94.3 (80.0-98.0) fL MCH 32.0 (27.0-33.0) pg MCHC 33.9 (31.0-36.0) g/dl RDW 14.1 (11.0-16.0) % Plt Count 193 (160-400) X10*3/uL MPV 9.1 L (9.4-12.4) fL Immature Gran % (Auto) 1.0 H (0.0-0.4) % Neut % (Auto) 81.4 H (45-73) % Lymph % (Auto) 6.7 L (20-40) % [place] % (Auto) 10.0 (2-11) % Eos % (Auto) 0.4 (0-4) % Baso % (Auto) 0.5 (0-2) % Lymph # (Auto) 0.6 L (1.2-4.9) X10*3/uL [place] # (Auto) 0.8 (0.1-1.2) X10*3/uL Eos # (Auto) 0.0 (0.0-0.4) X10*3/uL Baso # (Auto) 0.0 (0.0-0.2) X10*3/uL Abs Immat Gran (auto) 0.08 H (0.00-0.03) X10*3/uL Absolute Neuts (auto) 6.7 (2.0-8.3) x10*3/uL Absolute Nucleated RBC 0.000 (0.0-0.012) X10*3/uL Nucleated RBC % (auto) 0.0 (0.0-0.2) /100WBC ESR (0-15) MM/HR Hold Purple Top SEE NOTE Sodium 130 L (135-145) mmol/L Potassium 4.5 (3.3-5.1) mmol/L Chloride 102 (96-108) mmol/L Carbon Dioxide 19 L (22-29) mmol/L Anion Gap 14 (12-20) BUN 22 H (9-16) mg/dL Creatinine 0.89 (0.5-1.4) mg/dL Estim Creat Clear Calc 85.4 Estimated GFR > 60 POC Glucose 158 H (60-115) mg/dL Random Glucose 142 H (60-115) mg/dL Lactic Acid (0.5-2.0) mmol/L Calcium 8.0 L D (8.4-10.2) mg/dL Magnesium (1.6-2.6) mg/dL Total Bilirubin 1.2 H (0.0-1.0) mg/dL AST 58 H (5-37) U/L ALT 45 H (0-40) U/L Alkaline Phosphatase 104 (39-117) U/L Troponin I High Sens 1136.3 H* D (<3.5-35.0) ng/L C-Reactive Protein (< or = 0.50) mg/dL B-Natriuretic Peptide (<100) pg/mL Total Protein 5.6 L (6.5-8.0) g/dL Albumin 2.9 L (3.5-5.0) g/dL Lipase (8-78) U/L TSH (0.32-4.0) uIU/mL Free T4 (0.71-1.85) ng/dL Urine Color Urine Appearance Urine pH (5.0-9.0) Ur Specific [place] (1.005-1.025) Urine Protein (Neg-Trace) mg/dL Urine Glucose (UA) (Negative) mg/dL Urine Ketones (Negative) mg/dL Urine Blood (Negative) Urine Nitrite (Negative) Ur Leukocyte Esterase (Negative) Urine RBC (0-2) /HPF Urine WBC (0-5) /HPF Ur Squamous Epith Cells (0-2) /HPF Urine Bacteria (None Seen) Hyaline Casts (0-2) /LPF Critical Care Time Critical Care Time Critical Care Time: Yes Total Critical Care Time: 35 Attestation: The patient was critically ill with a high probability of imminent or life- threatening deterioration. ?I spent greater than 30 minutes of discontinuous time evaluating the patient, delivering critical care at the bedside, discussing evaluating data with consultants. ?Critical care time does not include time spent performing separately billable procedures or teaching. ?Time spent performing critical care with 35 minutes. Discharge Plan Discharge Clinical Impression: Acute febrile illness Patient Disposition: Admitted As Inpatient
[2025-02-06 22:42] LABS: MANUAL DIFF FLAG NO
[2025-02-06 22:45] LABS: Basophils Percent Auto 0.4 % (0-2); Hematocrit 28.3 % (42.0-52.0); Hemoglobin 9.6 g/dl (14.0-18.0); Imm Gran Abs Auto 0.05 X10*3/uL (0.00-0.03); Imm Gran Pct Auto 0.6 % (0.0-0.4); Lymphocytes Absolute Auto 0.2 X10*3/uL (1.2-4.9); Lymphocytes Percent Auto 2.9 % (20-40); Mean Corpuscular HGB Conc 33.9 g/dl (31.0-36.0); Mean Corpuscular Hemoglobin 31.6 pg (27.0-33.0); Mean Corpuscular Volume 93.1 fL (80.0-98.0); Mean Platelet Volume 9.1 fL (9.4-12.4); Monocytes Absolute Auto 0.7 X10*3/uL (0.1-1.2); Monocytes Percent Auto 8.4 % (2-11); Neutrophils Absolute Auto 7.4 x10*3/uL (2.0-8.3); Neutrophils Percent Auto 87.7 % (45-73); Platelet Count 219 X10*3/uL (160-400); Red Blood Count 3.04 X10*6/uL (4.60-5.80); White Blood Count 8.4 X10*3/uL (4.8-10.8)
[2025-02-06 23:01] LABS: Alanine Aminotransferase 58 U/L (0-40); Albumin Level 3.7 g/dL (3.5-5.0); Alkaline Phosphatase 128 U/L (39-117); Anion Gap 18 (12-20); Aspartate Amino Transferase 56 U/L (5-37); Bilirubin Total 1.4 mg/dL (0.0-1.0); Blood Urea Nitrogen 24 mg/dL (9-16); C Reactive Protein 20.98 mg/dL (< or = 0.50); Calcium 9.4 mg/dL (8.4-10.2); Carbon Dioxide 23 mmol/L (22-29); Chloride 97 mmol/L (96-108); Creatinine Clr Calc Pharmacy 72.3; Estimated Glomerular Filt Rate > 60; Glucose Random 225 mg/dL (60-115); Lipase 16 U/L (8-78); Sodium 133 mmol/L (135-145)
[2025-02-06] MEDS: 0.9 % Sodium Chloride 1,000 ML 999 ML IV (23:05)
[2025-02-06] MEDS: vancomycin/NS 2,000 MG/500 ML PLAST..BAG 250 MG IV (23:06)
[2025-02-06 23:07] VITALS: RESP 20
[2025-02-06] MEDS: Piperacillin Sodium/Tazobactam 4.5 GM in 0.9 % Sodium Chloride 100 ML IV (23:07)
[2025-02-06] MEDS: HYDROmorphone HCl 0.5 MG/0.5 ML SYRINGE IVPUSH (23:07)
[2025-02-06 23:08] VITALS: PULSE 120; TEMP 39.6
[2025-02-06 23:10] LABS: Troponin-I High Sensitivity 245.9 ng/L (<3.5-35.0)
[2025-02-06 23:29] LABS: Appearance Urine Clear; Color Urine Yellow; Glucose Urine UA Negative (Negative); Leukocyte Esterase Urine Trace (Negative); Nitrite Urine Negative (Negative); Specific Gravity - Urine 1.015 (1.005-1.025); UMIC TRIGGER UACC YES; Urine Blood Negative (Negative); Urine Ketones Negative (Negative); Urine Protein 100 (2+) mg/dL (Neg-Trace)
[2025-02-06 23:30] LABS: Erythrocyte Sedimentation Rate 81 MM/HR (0-15)
[2025-02-06 23:31] LABS: Bacteria Urine None Seen (None Seen); Hyaline Casts Urine 0-2 /LPF (0-2); RBC Urine 0-2 /HPF (0-2); Squamous Epithelial Cell Urine 0-2 /HPF (0-2); WBC Urine 0-5 /HPF (0-5)
[2025-02-06] MEDS: Acetaminophen 1,000 MG/100 ML PIGGYBACK 400 MG IV (23:44)
[2025-02-07] VITALS (16 sets, daily range): BP systolic 98–169; BP diastolic 44–97; PULSE 82–105; RESP 16–26; TEMP 36.1–38.6; O2SAT 87–99; BMI 37.5
--- NOTE | 2025-02-07 | ECG_ITS ---
Test Reason : RISING TROPONIN Blood Pressure : */* mmHG Vent. Rate : 93 BPM Atrial Rate : 93 BPM P-R Int : 144 ms QRS Dur : 114 ms QT Int : 390 ms P-R-T Axes : 78 89 11 degrees QTcB Int : 484 ms Sinus rhythm with Fusion complexes and Premature atrial complexes Right bundle branch block Abnormal ECG When compared with ECG of 07-Feb-2025 03:58, No significant change was found Referred By: Deysi Calvin Electronically Signed By: ANTONI OLIVAS MD
[2025-02-07 00:12] LABS: B Type Natriuretic Peptide 764 pg/mL (<100)
[2025-02-07] MEDS: iohexoL 350 MG/ML 100 ML INFUS..BTL 85 ML IV (01:44)
[2025-02-07] MEDS: 0.9 % Sodium Chloride 1,000 ML 999 ML IV (02:00)
[2025-02-07 02:06] LABS: Glucose, Whole Blood 158 mg/dL (60-115)
[2025-02-07] MEDS: HYDROmorphone HCl 0.5 MG/0.5 ML SYRINGE IVPUSH ×5 (02:19→20:05)
[2025-02-07 02:28] LABS: Troponin-I High Sensitivity 726.9 ng/L (<3.5-35.0)
[2025-02-07] MEDS: Lactated Ringers 1,000 ML 999 ML IV (03:22)
--- NOTE | 2025-02-07 03:43 | ECG_ITS ---
Test Reason : ELEVATED TROP Blood Pressure : */* mmHG Vent. Rate : 87 BPM Atrial Rate : 87 BPM P-R Int : 132 ms QRS Dur : 122 ms QT Int : 404 ms P-R-T Axes : 85 46 39 degrees QTcB Int : 486 ms Sinus rhythm with Premature supraventricular complexes and Fusion complexes Right bundle branch block Abnormal ECG When compared with ECG of 06-Feb-2025 22:18, Fusion complexes are now Present QRS axis Shifted right Nonspecific T wave abnormality now evident in Inferior leads Referred By: Bradley Baltazar Electronically Signed By: ANTONI OLIVAS MD
[2025-02-07 04:34] LABS: Magnesium 1.2 mg/dL (1.6-2.6)
[2025-02-07 04:46] LABS: Free T4 (Free Thyroxine) 0.97 ng/dL (0.71-1.85); Thyroid Stimulating Hormone 0.58 uIU/mL (0.32-4.0)
[2025-02-07 04:54] LABS: Troponin-I High Sensitivity 1136.3 ng/L (<3.5-35.0)
--- NOTE | 2025-02-07 05:02 | P.HPHOSP_ITS ---
History of Present Illness Date of Service: 02/07/25 Attending physician on admission: Glendy Villafuerte Chief Complaint: fever, low back pain s/p lumbar back surgery The patient is a 74-year-old male with a history of insulin dependent type 2 diabetes, BPH, GIO not on CPAP COPD/asthma, hypertension, alcohol use disorder (2 plus whiskeys per day, last drink was 5 days prior when pt started oral doxycyline)and elevated cholesterol. Additionally approximately 5 years ago he had open heart surgery with a triple-vessel bypass and an aortic valve replacement (pig valve). 7 years prior pt had R hip replaced. 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 Two weeks ago he had low back surgery. He had an L4-L5 laminectomy, partial facetectomy, and foraninotomy by Dr. Gorman and Dr. Fox.The patient says that following the surgery he felt significant relief from the pain he has been experiencing in his low back. Patient felt well enough to returned to work in sales and drove to [place]. During this time patient developed drainage from the lower back surgical site and reported this to Dr. Garcia's. Patient was prescribed doxycycline over the phone. On 02/05 patient did go to the ER in [place] due to the amount of drainage and back pain. He did have an MRI of the lower back. The results are unclear but he was discharged with instructions to continue the doxycycline. Patient decided to drive back to [place] on 02/06, arrived home and then had a friend drive him to the ED as patient felt feverish and found to have a temp of 103 degrees. Patient was also tachycardic. Patient is also describing 6/10 lower back pain and is having some relief after receiving IV Dilaudid. CRP 20, ALT, AST slightly elevated, TBILI 1.4, no leukocytosis present. The ED provider did culture the surgical site and pt was started on Vanco and Zosyn. Pt LA was 2.0. Pt recieved 1L of LR. Pt's troponin went from 243 to 726 and pt denied having chest pain but was experiencing some SOB with exertion. In addition, BNP elevated with CM on CXR but no pulmonary edema or pleural effusion. CTA was completed in ED and negative for PE and PNA. Repeat troponin 1136 0422 AM and pt no longer tachycardic or febrile. Pt continues to deny chest pain. Lovenox wt based given times one along with 162 mgs of aspirin. Cardiology consulted and echo ordered. This plan reviewed with Dr. Villafuerte, hospitalist attending and provider has been updated on cardiac concerns. Repeat troponin in 3 hours. Pt reports last alcoholic drink was 5 days prior when he started the doxycyline. CIWA initiated, scoring zero currently. Review of Systems 2 Review of Systems: Pt denies chest pain, sob at rest, N/V, abdominal pain, lower leg pain. Pt is reporting 6/10 lumbar back area at site of surgery. Pt has felt relief with IV pain medication. Yes all other systems are reviewed and are negative [facility] Medical History Hx: UTI (urinary tract infection) GIO (obstructive sleep apnea) HLD (hyperlipidemia) BPH (benign prostatic hyperplasia) Back pain Asthma Alcohol abuse Adverse effect of anesthetic CAD (coronary artery disease) Hypothyroidism Diabetes Peripheral neuropathy HTN (hypertension) Spinal stenosis Functional capacity: independent ambulation Pertinent family history: Mother: passed age 80 CDIFF Father: passed age 74 cardiac disease Surgical History History of tonsillectomy and adenoidectomy Hx of colonoscopy (2024) History of open reduction and internal fixation (ORIF) procedure (~2021) Hx of CABG (~2018) Aortic valve replaced (~2018) History of cardiac cath (07/28/17) History of right hip replacement (08/13/17) Social History Are you a primary prompt care rn to a significant other at home: No Do you presently have visiting nurse or other home services: No Patient Tobacco Use Status: Never used Tobacco Advance Directives: No Advance Directives Information Provided: Yes Do you have a plan to hurt others: No Plan Current occupational status: employed 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 Ebola Risk: Travel/Contact With Anyone From Affected Area/s: No Has Patient Experienced Ebola Symptoms: No Meds Allergies Allergy/AdvReac Type Severity Reaction Status Date / Time sulfamethoxazole Allergy Severe Itching Verified 02/06/25 22:11 [From Bactrim] trimethoprim [From Bactrim] Allergy Severe Itching Verified 02/06/25 22:11 tizanidine AdvReac Severe Weakness Verified 02/06/25 22:11 Active Medications: Current Medications Acetaminophen (Acetaminophen 325 Mg Tablet) 650 mg PO Q6H PRN PRN Reason: Pain, Mild 1-3,fever,headache Calcium Carbonate (Calcium Carbonate 750 Mg Tab.Chew) 750 mg PO Q4H PRN PRN Reason: Heartburn Lactated Ringer's (Lr) 1,000 mls @ 100 mls/hr IVCONT .Q10H RAPHAEL Piperacillin Sod/Tazobactam (Sod 4.5 gm/ Sodium Chloride) 100 mls @ 200 mls/hr IV Q6H RAPHAEL Magnesium Hydroxide (Milk Of Magnesia 30 Ml Oral.Susp) 30 ml PO DAILY PRN PRN Reason: Constipation Melatonin (Melatonin 3 Mg Tablet) 6 mg PO BEDTIME PRN PRN Reason: Insomnia Ondansetron HCl (Ondansetron Hcl 4 Mg/2 Ml Vial) 4 mg IVPUSH Q8H PRN PRN Reason: Nausea and Vomiting Pharmacy Consult (Consult Rx Vancomycin Dosing) 1 each MISCELLANE DAILY PRN PRN Reason: Consult order Senna (Sennosides 8.6 Mg Tablet) 17.2 mg PO BEDTIME RAPHAEL Sodium Chloride (0.9 % Sodium Chloride Flush 3 Ml Syringe) 3 ml IVFLUSH QSHIFT RAPHAEL Home Medications ?Medication ?Instructions ?Recorded ?Confirmed ?Last Taken ?Type albuterol sulfate 90 mcg/actuation 2 puff inhalation Q6H PRN wheezing 01/29/23 01/10/25 11/25/24 History aerosol inhaler atorvastatin 80 mg tablet 80 mg PO BEDTIME 01/29/23 01/10/25 01/22/25 History gabapentin 300 mg capsule 600 mg PO TID 01/29/23 01/10/25 01/23/25 History insulin degludec 100 unit/mL (3 24 - 26 unit subcut BEDTIME 01/29/23 01/10/25 01/22/25 History mL) subcutaneous pen (Tresiba FlexTouch U-100 insulin) levothyroxine 50 mcg tablet 50 mcg PO DAILY 01/29/23 01/10/25 01/23/25 History losartan 50 mg-hydrochlorothiazide 1 tab PO DAILY 01/29/23 01/10/25 01/22/25 History 12.5 mg tablet metformin 1,000 mg tablet 1,000 mg PO BID 01/29/23 01/10/25 01/22/25 History methenamine hippurate 1 gram tablet 1 g PO BID 01/29/23 01/10/25 01/22/25 History metoprolol tartrate 50 mg tablet 50 mg PO BID 01/29/23 01/10/25 01/23/25 History potassium chloride 10 mEq 10 meq PO DAILY 01/29/23 01/10/25 01/23/25 History tablet,extended release ascorbic acid (vitamin C) 500 mg 500 mg PO DAILY 01/10/25 01/10/25 01/22/25 History tablet (Vitamin C) aspirin 81 mg capsule 81 mg PO DAILY 01/10/25 01/10/25 01/15/25 History cholecalciferol (vitamin D3) 25 25 mcg PO DAILY 01/10/25 01/10/25 01/22/25 History mcg (1,000 unit) capsule (Vitamin D3) chromium 100 mcg tablet 100 mcg PO DAILY 01/10/25 01/10/25 01/21/25 History insulin lispro 100 unit/mL 24 - 25 unit subcut BEDTIME 01/10/25 01/10/25 01/22/25 History subcutaneous solution (Admelog U-100 Insulin lispro) omega 4-ord-yiu-fish oil 900 1 cap PO DAILY 01/10/25 01/23/25 01/15/25 History mg-1,400 mg capsule,delayed release tamsulosin 0.4 mg capsule 0.4 mg PO BEDTIME 01/10/25 01/10/25 01/22/25 History thiamine HCl (vitamin B1) 100 mg 100 mg PO DAILY 01/10/25 01/10/25 01/15/25 History tablet (Vitamin B-1) Physical Exam 2 Vital Signs and Narrative: Vital Signs: Last Vital Signs Temp 101.5 F H 02/07/25 01:21 Pulse 91 02/07/25 04:22 Resp 16 02/07/25 04:22 BP 133/61 02/07/25 04:22 Pulse Ox 95 02/07/25 04:22 O2 Del Method Nasal Cannula 02/07/25 04:22 O2 Flow Rate 2 02/07/25 04:22 BMI result Body Mass Index 34.1 Alert and orientated X3, able to give good history. Somewhat mildly groggy from pain medication. Neuro: CN II-X11 intact, no deficits, visual acuity intact EYES: PERRLA, EOM intact ENT: hearing intact, no issues with swallowing, uvula midline, lips moist, nares patent no epistaxis Cardiac: S1 S2 RRR, no murmur, no JVD, no edema in Lower ext, sternotomy incision closed and healed Pulmonary: lungs clear to auscultation B Abdominal: BS active in all 4 quadrants, no guarding, tenderness, rebounding, obese MSK: strength 5/5 upper and lower extremities : no CVA tenderness no bladder distension Extremities: no edema in lower extremities, PT and DP pulses palpable +2 Psych: mood stable, judgment and insight good SKin: noted lumbar surgical incision covered with clean dry dressing, warmth noted at the site, no ecchymosis or drainage . R leg scar from vein harvest, R hip scar noted Results Labs 02/06/25 22:28 02/06/25 22:28 Labs: Laboratory Results - last 24 hr 02/06/25 02/06/25 02/07/25 22:28 23:19 02:01 MCV 93.1 MCH 31.6 MCHC 33.9 RDW 14.0 Plt Count 219 MPV 9.1 L Immature Gran % (Auto) 0.6 H Neut % (Auto) 87.7 H Lymph % (Auto) 2.9 L Crane % (Auto) 8.4 Eos % (Auto) 0.0 Baso % (Auto) 0.4 Lymph # (Auto) 0.2 L Crane # (Auto) 0.7 Eos # (Auto) 0.0 Baso # (Auto) 0.0 Abs Immat Gran (auto) 0.05 H Absolute Neuts (auto) 7.4 Absolute Nucleated RBC 0.000 Nucleated RBC % (auto) 0.0 ESR 81 H Hold Purple Top Anion Gap 18 Estim Creat Clear Calc 72.3 Estimated GFR > 60 POC Glucose 158 H Random Glucose 225 H Lactic Acid 2.0 Calcium 9.4 Magnesium 1.2 L* Total Bilirubin 1.4 H AST 56 H ALT 58 H Alkaline Phosphatase 128 H C-Reactive Protein 20.98 H B-Natriuretic Peptide 764 H Total Protein 7.0 Albumin 3.7 Lipase 16 TSH 0.58 Free T4 0.97 Urine Color Yellow Urine Appearance Clear Urine pH 7.0 Ur Specific Bend 1.015 Urine Protein 100 (2+) H Urine Glucose (UA) Negative Urine Ketones Negative Urine Blood Negative Urine Nitrite Negative Ur Leukocyte Esterase Trace H Urine RBC 0-2 Urine WBC 0-5 Ur Squamous Epith Cells 0-2 Urine Bacteria None Seen Hyaline Casts 0-2 02/07/25 04:22 MCV MCH MCHC RDW Plt Count MPV Immature Gran % (Auto) Neut % (Auto) Lymph % (Auto) Crane % (Auto) Eos % (Auto) Baso % (Auto) Lymph # (Auto) Crane # (Auto) Eos # (Auto) Baso # (Auto) Abs Immat Gran (auto) Absolute Neuts (auto) Absolute Nucleated RBC Nucleated RBC % (auto) ESR Hold Purple Top SEE NOTE Anion Gap Estim Creat Clear Calc Estimated GFR POC Glucose Random Glucose Lactic Acid Calcium Magnesium Total Bilirubin AST ALT Alkaline Phosphatase C-Reactive Protein B-Natriuretic Peptide Total Protein Albumin Lipase TSH Free T4 Urine Color Urine Appearance Urine pH Ur Specific Bend Urine Protein Urine Glucose (UA) Urine Ketones Urine Blood Urine Nitrite Ur Leukocyte Esterase Urine RBC Urine WBC Ur Squamous Epith Cells Urine Bacteria Hyaline Casts ABG Attestation: I personally reviewed and interpreted this ABG as follows: ECG Attestation: I personally reviewed and interpreted this ECG as follows: (Fusion complexes are now Present Premature ventricular complexes are no longer Present Premature supraventricular complexes are now Present QRS axis Shifted right Nonspecific T wave abnormality now evident in Inferior leads) ECG interpretation date: 02/07/25 Prior ECG tracings: available for review Imaging Radiologist's Impressions: CXR FINDINGS: Left lower lung atelectasis or infiltrate. Right mid to lower lung atelectasis. No pleural effusion. No pneumothorax. Cardiomegaly. No acute fracture. Status post median sternotomy. IMPRESSION: Left lower lung atelectasis or infiltrate. Nonemergent/incidental findings above. CTA IMPRESSION: No acute findings. No pulmonary embolism. Right pulmonary nodules. Recommend follow-up chest CT in 3-6 months per Fleischner Society guidelines. Nonemergent/incidental findings above. Assessment and Plan (1) Sepsis: Qualifiers: Sepsis type: sepsis due to unspecified organism Sepsis acute organ dysfunction status: unspecified Qualified Code(s): A41.9 - Sepsis, unspecified organism Status: Acute (2) Postoperative back pain: Status: Acute (3) Elevated troponin: Status: Acute (4) Alcohol use disorder: Status: Acute (5) Hx of aortic valve replacement: Status: Acute (6) Insulin dependent type 2 diabetes mellitus: Status: Acute (7) Hypomagnesemia: Status: Acute Plan The patient is a 74-year-old male with a history of insulin dependent type 2 diabetes, BPH, GIO not on CPAP COPD/asthma, hypertension, alcohol use disorder (2 plus whiskeys per day, last drink was 5 days prior when pt started oral doxycyline)and elevated cholesterol. Additionally approximately 5 years ago he had open heart surgery with a triple-vessel bypass and an aortic valve replacement (pig valve). 7 years prior pt had R hip replaced. 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 Pt seen in ED for lower lumbar back pain with fever, s/p surgery 2 weeks prior. Sepsis/ Postoperative back pain with drainage -Pt arrived with fever 103, drainage from lumbar surgical site and tachycardia with an elevated TBILI and CRP. Pt did not have a leukocytosis and LA 2.0. -Neurosurgery consulted, did not want additional scan of Lumbar spine at this time, will round in AM. Treatment plan per Neurosurgery. Note that pt received lovenox wt based X1 and ASA 162 mgs for rising troponin without evidence of STEMI, NSTEMI. -Pt started on VANCO and ZOSYN -IVF provided -Tylenol for fever -Wound culture pending, BC X2 collected -Dilaudid for pain Elevated Troponin, Elevated BNP, CM on CXR, Hypomagnesemia -Troponin levels noted 245, 726, 1136 (0422 AM), next troponin 8AM. No chest pain ECG with non specific inferior T wave changes -Cardiology consulted -ECHO ordered noting BNP level and CM -Lovenox wt based X1, ASA 162 mgs provided -MG 1.2, 2 gms of MG provided in ED and then 400 mgs MGOX BID -Low NA diet, daily wts, I/Os Alcohol use Disorder -CIWA ordered, scoring zero -Thiamine and Folic Acid -MG low, ordered po MGOX BID -Pt counseled on alcohol use and how this can contribute to heart failure -LFTs mildly elevated IDDM -SSI for now -DIabetic DIet HX of CABG X4, AVR 2020 -[facility] with Dr Ashton, follows with vegetable packer at [facility] wt based times one - adjust if needed for DVT prophylaxis PPI ordered MED REC pending Full Code Pt requires inpatient hospitalization for estimated 3-4 days for IV ABX to treat sepsis and will need expert consultation with neurosurgery and cardiology noting elevated troponins. Total time managing care of this patient today: 45 minutes. Quality Stroke Does the patient have a stroke diagnosis?: No Reason for No Anti-thrombotic by Day Two: N/A - Med Ordered VTE Prior VTE?: No VTE Risk Level:: Medical - moderate - high VTE Device Contraindication: N/A - Device Ordered VTE Drug Contraindication: N/A - Med Ordered
[2025-02-07 05:10] LABS: MANUAL DIFF FLAG NO
[2025-02-07 05:12] LABS: Basophils Percent Auto 0.5 % (0-2); Eosinophils Percent Auto 0.4 % (0-4); Hemoglobin 7.8 g/dl (14.0-18.0); Imm Gran Abs Auto 0.08 X10*3/uL (0.00-0.03); Lymphocytes Absolute Auto 0.6 X10*3/uL (1.2-4.9); Lymphocytes Percent Auto 6.7 % (20-40); Mean Corpuscular HGB Conc 33.9 g/dl (31.0-36.0); Mean Corpuscular Volume 94.3 fL (80.0-98.0); Mean Platelet Volume 9.1 fL (9.4-12.4); Monocytes Absolute Auto 0.8 X10*3/uL (0.1-1.2); Neutrophils Absolute Auto 6.7 x10*3/uL (2.0-8.3); Neutrophils Percent Auto 81.4 % (45-73); Platelet Count 193 X10*3/uL (160-400); Red Blood Count 2.44 X10*6/uL (4.60-5.80); Red Cell Distribution Width 14.1 % (11.0-16.0); White Blood Count 8.2 X10*3/uL (4.8-10.8)
[2025-02-07 05:29] LABS: Alanine Aminotransferase 45 U/L (0-40); Albumin Level 2.9 g/dL (3.5-5.0); Alkaline Phosphatase 104 U/L (39-117); Anion Gap 14 (12-20); Aspartate Amino Transferase 58 U/L (5-37); Bilirubin Total 1.2 mg/dL (0.0-1.0); Blood Urea Nitrogen 22 mg/dL (9-16); Carbon Dioxide 19 mmol/L (22-29); Chloride 102 mmol/L (96-108); Creatinine Clr Calc Pharmacy 85.4; Estimated Glomerular Filt Rate > 60; Glucose Random 142 mg/dL (60-115); Potassium 4.5 mmol/L (3.3-5.1); Sodium 130 mmol/L (135-145); Total Protein 5.6 g/dL (6.5-8.0)
[2025-02-07] MEDS: Aspirin 81 MG TAB.CHEW 162 MG PO (05:48)
[2025-02-07] MEDS: Piperacillin Sodium/Tazobactam 4.5 GM in 0.9 % Sodium Chloride 100 ML IV ×2 (05:49→11:28)
[2025-02-07] MEDS: Enoxaparin Sodium 100 MG/ML SYRINGE SUBCUT (05:49)
[2025-02-07] MEDS: Magnesium Sulfate/H2O 2 GM/50 ML PIGGYBACK IV ×2 (05:50→17:24)
[2025-02-07] MEDS: Lactated Ringers 1,000 ML 100 ML IVCONT ×2 (06:11→17:23)
[2025-02-07 06:20] LABS: INTERNATIONAL NORM RATIO 1.2 (0.9-1.1); Prothrombin Time 13.9 SEC (10.9-12.4)
[2025-02-07 06:23] LABS: Partial Thromboplastin Time 31.3 SEC (26.0-36.8)
[2025-02-07] MEDS: Pantoprazole Sodium 40 MG/10 ML VIAL IVPUSH (06:28)
--- NOTE | 2025-02-07 06:46 | PHA.PROG ---
Admission Date/Time: February 07, 2025 04:53 Indication: BONE AND JOINT Weight in k.605 kg Adjusted body weight in Kg: Floyd body weight in Kg: Obesity Dosing Indication % IBW: Serum Creatinine - Last 168 Hours 02/06/25 02/07/25 22:28 04:22 Creatinine 1.05 0.89 Estimated CrCl and GFR - Last 168 Hours 02/06/25 02/07/25 22:28 04:22 Estim Creat Clear Calc 72.3 85.4 Estimated GFR > 60 > 60 Vancomycin Loading Dose: 2000 MG Current Vancomycin Dosing Regimen: 750 MG Q8H Vancomycin Monitoring using AUC goal of 400 - 600 range with trough as surrogate marker: BUO=836 TROUGH=19.4 Date and Time for next Vancomycin Level to be drawn: 02/07/25 @2100 Pharmacist Comments on Vancomycin Plan: START REGIMEN AGGRESSIVELY AT THE BEGINNING TO GET PT TO THERAPEUTIC LEVEL WITH INDICATION OF BONE AND JOINT INFECTION. WILL MONITOR AND ADJUST DOSE ACCORDINGLY WHEN TROUGH COMES BACK TONIGHT @2100. Vancomycin dosing will take advantage of [employer] as a clinical decision support tool that uses Bayesian modeling to calculate individual patient's pharmacokinetic parameters and forecast the patient's drug concentration time course with the target goal AUC 24 range of 400 - 600 mg/L/hr.
--- NOTE | 2025-02-07 07:00 | CA_ITS ---
Transthoracic Echocardiogram Patient (Last, First, Middle): Jt Casarez, Gender: Male Date of : 1950 Age: 74 Procedure Date: 02/07/2025 Procedure Type: Transthoracic Echocardiogram Location: [facility] Height: 172.72 cm Weight: 103.42 kg BSA: 2.16 m2 Heart Rate: bpm BP: 132 / 53 mmHg Recording Studio Intern: ALBINO Referring MD: Deysi Calvin [facility] Knitting Machine Fixer: Aftab Chu MD Symptoms: elevated BNP, troponin, CM, hx of CABG X4, AVR Study Quality: Technically Difficult due to body habitus ECG Rhythm: Sinus Conclusions: - 1. Technically difficult study despite use of contrast agent 2. Low normal LV ejection fraction 50-55% with mild LVH with pseudonormal filling pattern 3. Moderately dilated right ventricular with preserved contractility 4. Moderately dilated right and left atrium 5. Bioprosthetic aortic valve present with evidence of stenosis with increased gradient, could be related to patient prosthesis mismatch 5. Calcific mitral valve changes noted with possible mitral stenosis 6. Normal measured RV systolic pressure Findings Procedure Information Contrast agent, definity, is being given per protocol without apparent complications. Left Ventricle Normal left ventricular cavity size. There is mildly increased left ventricular wall thickness. The left ventricular systolic function is low normal. The visually estimated ejection fraction is between 50-55%. There is paradoxical septal motion consistent with post-operative status. Spectral Doppler is indicative of a pseudonormal filling pattern. Wall Motion Rest Echo Findings The apex, apical anterior, apical septum, and mid anteroseptal segments are hypokinetic. All other scored wall segments showed normal motion. Right Ventricle Moderately increased right ventricular cavity size. There is normal right ventricular systolic function. Atria Moderate biatrial enlargement. Interatrial shunt cannot be excluded. Aortic Valve A bioprosthetic aortic valve is present. The mean gradient is 18 mmHg. The valve leaflets are not well visualized and can not rule out stenosis of the valve leaflet although patient prosthesis mismatch is also likely. Mitral Valve The mitral valve was not well visualized. There is moderate anterior and severe posterior mitral leaflet thickening. There is severe posterior mitral annular calcification. There is severe mitral annular calcification. Increased gradient through the mitral valve could represent mitral stenosis with a mean gradient of 7 mm Hg. No significant regurgitation noted Pulmonic Valve The pulmonic valve was not well visualized. Tricuspid Valve The tricuspid valve was not well visualized. There is mild tricuspid valve regurgitation. Mildly elevated right atrial pressure. There is no evidence of pulmonary hypertension. Great Vessels The pulmonary artery was not well visualized. There is no dilatation of the ascending aorta measuring 3.60 cm. Moderate plaque is seen in the sino tubular ridge. Venous The inferior vena cava is normal in size and collapses greater than 50% with inspiration. Pericardium/Pleural The pericardium was not well visualized. Prior Study Comparison Changes noted compared to prior study dated: 07/14/2017. bioprosthetic valve present with noted increased gradient suggestive of stenosis, possible patient prosthesis mismatch. Also suggestion of mitral stenosis. LV ejection fraction is reduced Measurements 2D Linear Measurements IVSd: 1.21 0.6-0.9/0.6-1.0 cm LVIDd: 4.67 3.9-5.3/4.2-5.9 cm LVIDd Index: 2.16 2.4-3.2/2.2-3.1 cm/m2 LVIDs: 2.97 2.0-3.6 cm LVPWd: 1.22 0.7-1.1 cm Ao Root: 3.50 2.1-3.5 cm LA Diam: 4.70 2.7-3.8/3.0-4.0 cm LAIDs Index: 2.18 1.5-2.3 cm/m2 LV Mass: 266.31 67-162/88-224 g LV Mass Index: 123.29 43-95/49-115 g/m2 LVOT Diam: 2.00 3.0+(-)1.3 cm 2D Systolic Function EF 4C: 50.80 >55% EF 2C: 51.60 >55% EF BiP: 50.30 >55% Mitral Valve MV VTI: 0.51 MV Pk Misha: 1.91 MV Mn Misha: 1.31 MV Pk Grad: 15.00 MV Mn Grad: 8.00 MV Pk E: 1.41 MV PK A: 1.32 MV Decel Time: 211.00 E/A: 1.10 E'Lateral: 5.22 E'Medial: 3.15 E/E' Med: 44.80 E/E' Lat: 27.00 PHT: 62.00 MVA PHT: 3.55 MVA Continuity: 0.88 Decel [place]: 6.72 Aortic Valve AoV Pk Misha: 2.75 AoV Mn Misha: 2.01 AoV VTI: 0.49 AoV Pk Grad: 30.00 Aov Mn Grad: 18.00 MICHAEL Cont.VTI: 0.91 LVOT LVOT Pk Misha: 0.74 LVOT Mn Misha: 0.53 LVOT VTI: 0.14 LVOT Pk Grad: 2.00 LVOT Mn Grad: 1.00 LVOT Diam: 2.00 LVOT Area: 3.14 Diastolic Function MV Pk E: 1.41 MV Pk A: 1.32 E/A: 1.10 E'Medial: 3.15 E/E' Med: 44.80 E' Laterial: 5.22 E/E' Lat: 27.00 Right Ventricle TAPSE (mm): 23.00 TVS' Misha: 9.00 Tricuspid Valve TR Pk Misha: 2.25 TR Pk Grad: 20.00 RA Press: 8.00 RVSP: 28.00 Great Vessels Aorta Ao Root-2D: 3.50 2.0-3.7 cm Ao Asc: 3.60 2.1-3.4 cm Pulmonary Valve PV Pk Misha: 0.72 Peak PV Grad: 2.00 Updated in Other Vendor System with Status of Final Aftab Chu MD electronically signed on 02/08/2025 9:57:26 AM with status of Final
--- NOTE | 2025-02-07 07:00 | HO.NEURO.PN ---
Neurosurgery Operative Note Date of Service: 02/07/25 Narrative: HPI: Jt is a 74 year old male who is about 2 weeks out from right L4-5 lumbar decomp[address] completed by Dr. Fox. 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 In addition to this, he left his postoperative bandage on for about 10 days after surgery. Late last week he reached out to our office to discuss some increased pain, and drainage from his wound site. He sent us a picture of a saturated bandage still overlying the incision site. We advised him to remove this, and further evaluated the images he sent us (as he was still >7 hours away in [place]). It appeared based on his images and symptoms he had a postoperative seroma, however we sent in a course of doxycycline for him today for superficial skin infection prophylaxis. Two days later he was evaluated in the emergency department in [place], and after a CT scan with contrast he was discharged from the emergency department. Last night, he presented to the emergency department here at [facility] due to increased exacerbations of pain, despite having an appointment with us today in clinic 02/07/25. He reports that the pain he is experiencing is predominantly low back pain, which is now on both sides of his low back. He denies any shooting pains into his lower extremities. He denies any dizziness, headaches, or balance issues. Exam: Patient was febrile overnight, last febrile reading at 0100. Afebrile this morning but currently on scheduled Tylenol. He has full 5/5 strength in his bilateral lower extremities. No significant sensational deficits. His posterior incision site looks good; it is well approximated with a small opening on the superior edge draining serosanguineous fluid. No pain to palpation of incision site. Incision site is non-erythematous, no purulent drainage. Plan: 74 year old male who is about 2 weeks out from right L4-5 lumbar decompression completed by Dr. Fox. To recap during surgery we noted that his spondylolisthesis increased to a grade 2 spondylolisthesis, likely contributing to his worsening pain. He will likely need lumbar fusion at L4-5 in the future. He was recently evaluated at [facility] in [place] on 02/04/25. They completed a CT scan with contrast which showed no evidence of fluid collection or abscess at the surgical site. He has no pain to palpation at or around the incision site. There is no purulent drainage or notable erythema. He has no leukocytosis. He does have atelectasis which may be contributing to his objective fever. We do not believe there is any subsequent surgical intervention necessary for this patient at this time. We recommend incentive spirometry and discharge home if his wound cultures come back unremarkable and he is cleared from his other medical concerns / issues by the hospitalist team. His wound should either remain open to air, or may have a light non-adherent dressing placed over the surface in such a manner that the wound can still breath. This plan was discussed with the attending neurosurgeon Dr. Fox who understands and agrees to this plan. Krzysztof Fox MD,PhD [facility]
[2025-02-07 07:19] LABS: Glucose, Whole Blood 134 mg/dL (60-115)
[2025-02-07] MEDS: vancomycin HCL 750 MG in 0.9 % Sodium Chloride 250 ML 265 MG IV ×2 (08:06→17:23)
[2025-02-07] MEDS: Magnesium Oxide 400 MG TABLET PO (08:14)
--- NOTE | 2025-02-07 09:20 | PC.NURSE ---
pt verbalizing increase in lower back pain - requesting medication. pt educated that he is unable to receive prn medication at this time as it is currently not due. pt then called nurses station to speak w/ this speech writer in regards to receiving medication. pt reeducated on the fact that he is unable to receive medication at this time.
--- NOTE | 2025-02-07 09:29 | PHA.MEDREC ---
Addendum entered by Mukesh Oliver [facility] 02/07/25 09:51: med rech checked by [facility] Original Note: Pharmacy Consult ? Medication Reconciliation Pharmacy has completed the medication reconciliation. Spoke with patient and he had Rx bottles on hand and was able to confirm the rest of his medications. He started Doxycycline last week and got a continuation of the same dose yesterday he is still taking.
--- NOTE | 2025-02-07 09:41 | P.CONCA_ITS ---
History of Present Illness History of Present Illness Date of Service: 02/07/25 Requesting physician: Abraham Price Consult reason: other ( NSTEMI) Chief complaint: Sepsis, Lumbar Surgical Wound Infection Narrative: I was consulted to see Jt in cardiology consultation today for elevated troponins consistent with myocardial injury. Patient 74-year-old male with prior history of CAD status post coronary artery bypass grafting at the time of aortic valve replacement with a 21 mm bioprosthetic valve for symptomatic severe aortic stenosis. Patient has been then been followed by Cardiology in [place] on a regular basis and on a yearly basis and has testing done with them on a yearly basis. He said he has had no issues again with his cardiac issues. Recently about couple weeks ago had lumbar surgery performed for lumbar radiculopathy. 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 He said he had significant yellowish drainage. He then started spiking fever and not feeling well and therefore came to the hospital. Initially noted to be tachycardic with elevated lactic acid with findings consistent with sepsis. He has been treated for the same. Troponins were drawn for unclear reasons and they were elevated. Subsequent troponins have been further elevated consistent with NSTEMI. He has been given 1 dose of Lovenox. He denies any episodes of chest pain. Denies any shortness of breath. Says in significant pain in the lumbar area and is barely able to move. He denies any palpitations. Remains with sinus tachycardia. Blood pressures been stable. He was prior history of alcohol use as well. He said last drink was about 5 days ago. Review of Systems 2 Constitutional: Constitutional: Reports chills, Reports fever(s) and Reports lethargy Eyes: Eyes: Reports no additional eye complaints Cardiovascular: Cardiovascular: Reports no additional cardiovascular complaints Respiratory: Respiratory: Reports no additional respiratory complaints Gastrointestinal: Gastrointestinal: Reports no additional gastrointestinal complaints Musculoskeletal: Musculoskeletal: Reports other ( Severe back pain) Integumentary/Breasts: Skin/Breast: Reports system reviewed and no additional complaints, except as docu Neurologic: Reports system reviewed and no additional complaints, except as documented [facility] Past Medical History Medical History Hx: UTI (urinary tract infection) GIO (obstructive sleep apnea) HLD (hyperlipidemia) BPH (benign prostatic hyperplasia) Back pain Asthma Alcohol abuse Adverse effect of anesthetic CAD (coronary artery disease) Hypothyroidism Diabetes Peripheral neuropathy HTN (hypertension) Spinal stenosis Surgical History Surgical History History of tonsillectomy and adenoidectomy Hx of colonoscopy (2024) History of open reduction and internal fixation (ORIF) procedure (~2021) Hx of CABG (~2018) Aortic valve replaced (~2018) History of cardiac cath (07/28/17) History of right hip replacement (08/13/17) Social History Social History Are you a primary patient care provider to a significant other at home: No Do you presently have visiting nurse or other home services: No Patient Tobacco Use Status: Never used Tobacco Smoked in Last 30 Days: No Use of substances other than those prescribed or required for medical reasons: No Advance Directives: No Advance Directives Information Provided: Yes Do you have a plan to hurt others: No Plan Current occupational status: employed Current occupation: [employer] Travel History Ebola Risk: Travel/Contact With Anyone From Affected Area/s: No Has Patient Experienced Ebola Symptoms: No Meds Allergies Allergy/AdvReac Type Severity Reaction Status Date / Time sulfamethoxazole Allergy Severe Itching Verified 02/06/25 22:11 [From Bactrim] trimethoprim [From Bactrim] Allergy Severe Itching Verified 02/06/25 22:11 tizanidine AdvReac Severe Weakness Verified 02/06/25 22:11 Active Medications: Current Medications Acetaminophen (Acetaminophen 325 Mg Tablet) 650 mg PO Q6H PRN PRN Reason: Pain, Mild 1-3,fever,headache Calcium Carbonate (Calcium Carbonate 750 Mg Tab.Chew) 750 mg PO Q4H PRN PRN Reason: Heartburn Dextrose (Dextrose 50 % 25 Gm/50 Ml Syringe) 25 gm IVPUSH Q15M PRN; Protocol PRN Reason: per Hypoglycemia Standing Ord. Folic Acid (Folic Acid 1 Mg Tablet) 1 mg PO DAILY RAPHAEL Glucose (Glucose Gel 15 Gm Gel..Gram.) 15 gm PO Q15M PRN; Protocol PRN Reason: per Hypoglycemia Standing Ord. Hydromorphone HCl (Hydromorphone Hcl 0.5 Mg/0.5 Ml Syringe) 0.5 mg IVPUSH Q3H PRN; Protocol PRN Reason: Pain, Severe (Pain Scale 7-10) Last Admin: 02/07/25 06:28 Dose: 0.5 mg Lactated Ringer's (Lr) 1,000 mls @ 100 mls/hr IVCONT .Q10H [facility] Last Admin: 02/07/25 06:12 Dose: Not Given Piperacillin Sod/Tazobactam (Sod 4.5 gm/ Sodium Chloride) 100 mls @ 200 mls/hr IV Q6H [facility] Last Infusion: 02/07/25 06:31 Dose: Infused Vancomycin HCl 750 mg/ Sodium (Chloride) 265 mls @ 265 mls/hr IV Q8H [facility] Last Infusion: 02/07/25 09:24 Dose: Infused Insulin Human Lispro (Insulin Lispro 100 Unit/Ml 3 Ml Vial) 0 unit SUBCUT QIDACHS [facility]; Protocol Last Admin: 02/07/25 07:29 Dose: Not Given Magnesium Hydroxide (Milk Of Magnesia 30 Ml Oral.Susp) 30 ml PO DAILY PRN PRN Reason: Constipation Magnesium Oxide (Magnesium Oxide 400 Mg Tablet) 400 mg PO BIDPC [facility] Last Admin: 02/07/25 08:14 Dose: 400 mg Melatonin (Melatonin 3 Mg Tablet) 6 mg PO BEDTIME PRN PRN Reason: Insomnia Ondansetron HCl (Ondansetron Hcl 4 Mg/2 Ml Vial) 4 mg IVPUSH Q8H PRN PRN Reason: Nausea and Vomiting Pantoprazole Sodium (Pantoprazole Sodium 40 Mg/10 Ml Vial) 40 mg IVPUSH DAILY@0630 [facility] Last Admin: 02/07/25 06:28 Dose: 40 mg Pharmacy Consult (Consult Rx Vancomycin Dosing) 1 each MISCELLANE DAILY PRN PRN Reason: Consult order Senna (Sennosides 8.6 Mg Tablet) 17.2 mg PO BEDTIME [facility] Sodium Chloride (0.9 % Sodium Chloride Flush 3 Ml Syringe) 3 ml IVFLUSH QSHIFT [facility] Last Admin: 02/07/25 08:06 Dose: Not Given Thiamine HCl (Thiamine Hcl 100 Mg Tablet) 100 mg PO DAILY [facility] Home Medications ?Medication ?Instructions ?Recorded ?Confirmed ?Last Taken ?Type albuterol sulfate 90 mcg/actuation 2 puff inhalation Q6H PRN wheezing 01/29/23 02/07/25 11/25/24 History aerosol inhaler atorvastatin 80 mg tablet 80 mg PO BEDTIME 01/29/23 02/07/25 02/05/25 History gabapentin 300 mg capsule 600 mg PO TID 01/29/23 02/07/25 02/06/25 History insulin degludec 100 unit/mL (3 26 unit subcut BEDTIME 01/29/23 02/07/25 02/05/25 History mL) subcutaneous pen (Tresiba FlexTouch U-100 insulin) levothyroxine 50 mcg tablet 50 mcg PO DAILY@0600 01/29/23 02/07/25 02/06/25 History losartan 50 mg-hydrochlorothiazide 1 tab PO DAILY 01/29/23 02/07/25 02/06/25 History 12.5 mg tablet metformin 1,000 mg tablet 1,000 mg PO BID 01/29/23 02/07/25 02/06/25 History methenamine hippurate 1 gram tablet 1 g PO BID 01/29/23 02/07/25 02/06/25 History metoprolol tartrate 50 mg tablet 50 mg PO BID 01/29/23 02/07/25 02/06/25 History potassium chloride 10 mEq 10 meq PO DAILY 01/29/23 02/07/25 02/06/25 History tablet,extended release ascorbic acid (vitamin C) 500 mg 500 mg PO DAILY 01/10/25 02/07/25 02/06/25 History tablet (Vitamin C) aspirin 81 mg capsule 81 mg PO BEDTIME 01/10/25 02/07/25 02/05/25 History cholecalciferol (vitamin D3) 25 25 mcg PO DAILY 01/10/25 02/07/25 02/06/25 History mcg (1,000 unit) capsule (Vitamin D3) chromium 100 mcg tablet 100 mcg PO DAILY 01/10/25 02/07/25 02/06/25 History insulin lispro 100 unit/mL 24 unit subcut BEDTIME 01/10/25 02/07/25 02/05/25 History subcutaneous solution (Admelog U-100 Insulin lispro) omega 1-wcc-lrq-fish oil 900 1 cap PO BEDTIME 01/10/25 02/07/25 02/05/25 History mg-1,400 mg capsule,delayed release tamsulosin 0.4 mg capsule 0.4 mg PO BEDTIME 01/10/25 02/07/25 02/05/25 History thiamine HCl (vitamin B1) 100 mg 100 mg PO DAILY 01/10/25 02/07/25 02/06/25 History tablet (Vitamin B-1) acetaminophen 500 mg tablet 500 - 1,000 mg PO Q6H PRN Pain 02/07/25 02/07/25 Unknown History ibuprofen 200 mg tablet 200 - 400 mg PO Q6H PRN Pain 02/07/25 02/07/25 Unknown History Physical Exam 2 Vital Signs: Vital Signs: Last Vital Signs Temp 99.3 F 02/07/25 06:22 Pulse 93 02/07/25 06:22 Resp 18 02/07/25 06:28 BP 132/53 L 02/07/25 05:32 Pulse Ox 96 02/07/25 05:32 O2 Del Method Nasal Cannula 02/07/25 05:32 O2 Flow Rate 2 02/07/25 05:32 BMI result Body Mass Index 34.1 Const: General: cooperative, alert, awake and in distress severe and other ( due to pain) Nutritional Appearance: obese Orientation/consciousness: p atient oriented x3 HEENT: Head: Yes normocephalic and Yes atraumatic Neck: Neck: Yes trachea midline, Yes supple and Yes no JVD Resp: Effort & Inspection: normal respiratory effort Auscultation: clear to auscultation bilaterally Cardio: Jugular venous distension: no JVD Rate: tachycardic Rhythm: a bnormal rhythm with ectopic beats Heart sounds: S1 normal heart sound present, S2 normal heart sound present, no click, no gallops and no murmurs GI: Auscultation: normal bowel sounds Skin: General skin exam: no rashes or lesions noted Neuro: General: patient oriented x3 and no focal motor deficits Extrem: General: Yes no clubbing, cyanosis or edema Objective Labs and Meds 02/07/25 04:22 02/07/25 04:22 Lab results: Laboratory Results - last 24 hr 02/06/25 02/06/25 02/07/25 22:28 23:19 01:50 WBC 8.4 RBC 3.04 L Hgb 9.6 L Hct 28.3 L MCV 93.1 MCH 31.6 MCHC 33.9 RDW 14.0 Plt Count 219 MPV 9.1 L Immature Gran % (Auto) 0.6 H Neut % (Auto) 87.7 H Lymph % (Auto) 2.9 L [place] % (Auto) 8.4 Eos % (Auto) 0.0 Baso % (Auto) 0.4 Lymph # (Auto) 0.2 L [place] # (Auto) 0.7 Eos # (Auto) 0.0 Baso # (Auto) 0.0 Abs Immat Gran (auto) 0.05 H Absolute Neuts (auto) 7.4 Absolute Nucleated RBC 0.000 Nucleated RBC % (auto) 0.0 ESR 81 H Hold Purple Top PT INR APTT Sodium 133 L Potassium 5.0 Chloride 97 Carbon Dioxide 23 Anion Gap 18 BUN 24 H Creatinine 1.05 Estim Creat Clear Calc 72.3 Estimated GFR > 60 POC Glucose Random Glucose 225 H Lactic Acid 2.0 Calcium 9.4 Magnesium 1.2 L* Total Bilirubin 1.4 H AST 56 H ALT 58 H Alkaline Phosphatase 128 H Troponin I High Sens 245.9 H* 726.9 H* D C-Reactive Protein 20.98 H B-Natriuretic Peptide 764 H Total Protein 7.0 Albumin 3.7 Lipase 16 TSH 0.58 Free T4 0.97 Urine Color Yellow Urine Appearance Clear Urine pH 7.0 Ur Specific [place] 1.015 Urine Protein 100 (2+) H Urine Glucose (UA) Negative Urine Ketones Negative Urine Blood Negative Urine Nitrite Negative Ur Leukocyte Esterase Trace H Urine RBC 0-2 Urine WBC 0-5 Ur Squamous Epith Cells 0-2 Urine Bacteria None Seen Hyaline Casts 0-2 02/07/25 02/07/25 02/07/25 02:01 04:22 06:09 WBC 8.2 RBC 2.44 L Hgb 7.8 L Hct 23.0 L MCV 94.3 MCH 32.0 MCHC 33.9 RDW 14.1 Plt Count 193 MPV 9.1 L Immature Gran % (Auto) 1.0 H Neut % (Auto) 81.4 H Lymph % (Auto) 6.7 L [place] % (Auto) 10.0 Eos % (Auto) 0.4 Baso % (Auto) 0.5 Lymph # (Auto) 0.6 L [place] # (Auto) 0.8 Eos # (Auto) 0.0 Baso # (Auto) 0.0 Abs Immat Gran (auto) 0.08 H Absolute Neuts (auto) 6.7 Absolute Nucleated RBC 0.000 Nucleated RBC % (auto) 0.0 ESR Hold Purple Top SEE NOTE PT 13.9 H INR 1.2 H APTT 31.3 Sodium 130 L Potassium 4.5 Chloride 102 Carbon Dioxide 19 L Anion Gap 14 BUN 22 H Creatinine 0.89 Estim Creat Clear Calc 85.4 Estimated GFR > 60 POC Glucose 158 H Random Glucose 142 H Lactic Acid Calcium 8.0 L D Magnesium Total Bilirubin 1.2 H AST 58 H ALT 45 H Alkaline Phosphatase 104 Troponin I High Sens 1136.3 H* D C-Reactive Protein B-Natriuretic Peptide Total Protein 5.6 L Albumin 2.9 L Lipase TSH Free T4 Urine Color Urine Appearance Urine pH Ur Specific [place] Urine Protein Urine Glucose (UA) Urine Ketones Urine Blood Urine Nitrite Ur Leukocyte Esterase Urine RBC Urine WBC Ur Squamous Epith Cells Urine Bacteria Hyaline Casts 02/07/25 07:12 WBC RBC Hgb Hct MCV MCH MCHC RDW Plt Count MPV Immature Gran % (Auto) Neut % (Auto) Lymph % (Auto) [place] % (Auto) Eos % (Auto) Baso % (Auto) Lymph # (Auto) [place] # (Auto) Eos # (Auto) Baso # (Auto) Abs Immat Gran (auto) Absolute Neuts (auto) Absolute Nucleated RBC Nucleated RBC % (auto) ESR Hold Purple Top PT INR APTT Sodium Potassium Chloride Carbon Dioxide Anion Gap BUN Creatinine Estim Creat Clear Calc Estimated GFR POC Glucose 134 H Random Glucose Lactic Acid Calcium Magnesium Total Bilirubin AST ALT Alkaline Phosphatase Troponin I High Sens C-Reactive Protein B-Natriuretic Peptide Total Protein Albumin Lipase TSH Free T4 Urine Color Urine Appearance Urine pH Ur Specific [place] Urine Protein Urine Glucose (UA) Urine Ketones Urine Blood Urine Nitrite Ur Leukocyte Esterase Urine RBC Urine WBC Ur Squamous Epith Cells Urine Bacteria Hyaline Casts Assessment and Plan (1) NSTEMI (non-ST elevated myocardial infarction): Status: Acute NSTEMI in this elderly gentleman with prior history of CAD and aortic valve replacement is secondary to his acute medical/ surgical illness with sepsis and not a primary acute coronary syndrome events such as plaque rupture / erosion. At this point time this will be managed medically. I think treatment of his underlying surgical/ medical issues needs to be addressed urgently including if require surgical drainage of infection if required. Meanwhile will continue statins, aspirins and would also prescribe him metoprolol if he is hemodynamically stable to reduce myocardial ischemic demand. If he needs to undergo surgery he is currently optimized with intermediate risk for perioperative cardiovascular morbidity mortality. I do not think he needs continued IV anticoagulation for his NSTEMI. Will continue to follow with you Procedures Date of Service Date of Service: 02/07/25
[2025-02-07] MEDS: Thiamine HCL 100 MG TABLET PO (09:54)
[2025-02-07] MEDS: Folic Acid 1 MG TABLET PO (09:54)
--- NOTE | 2025-02-07 09:56 | MHC.CM.PN ---
IMM 02/07/25, Pt. lives alone, he does not have home health services. HCP is on file and confirmed: Keysha. For DME he has a cane and a walker. PCP confirmed: Cornelia Medina. Pt can arrange transport home at [place], DCP; home, with services. CM to follow for DC needs.
--- NOTE | 2025-02-07 10:00 | PC.NURSE ---
prn medication utilized at this time. effectiveness pending.
[2025-02-07 10:32] LABS: Troponin-I High Sensitivity 1143.7 ng/L (<3.5-35.0)
--- NOTE | 2025-02-07 10:33 | PC.NURSE ---
critical lab value received at this time - 2/2 positive blood cultures, two out of two sets with gram positive cocci in pairs and short chains as well as a troponin of 1143.[address] this time[address] Dr. Price notified/aware.
[2025-02-07] MEDS: Metoprolol Tartrate 50 MG TABLET PO ×2 (11:28→20:04)
[2025-02-07] MEDS: Levothyroxine Sodium 50 MCG TABLET PO (11:28)
--- NOTE | 2025-02-07 12:40 | PC.NURSE ---
pt noted to have an unwitnessed fall while in his room despite high fall risk precautions being in place. respiratory therapist found patient on knees bilaterally when walking past the room. RN, tech and additional tech bedside to assist. pt reports attempting to get OOB w/o assistance to utilize urinal. patient previously instructed on use/importance of call previously this am but declined to do so when attempting to urinate. patietn denies headstrike/any trauma. pt currently denies pain as he was previously medicated w/ prn medication. vital signs stable/up to date aside from being tachypneic. sinus tach on the cardiac technologist - pt denies chest pain/palpitations. pt currently remains on 4L via NC - SPO2 @ 99%. admitting provider notified/aware. no new orders. pt assisted into bedside recliner - chair alarm turned on for safety precautions. call placed within reach.
--- NOTE | 2025-02-07 13:49 | P.EN_ITS ---
Event Note Date of Service: 02/07/25 Event Note: Day hospitalist update S: fever resolved; tachycardic; tachypneic no chest pain minimal back pain though has drainage O: Temp Pulse Resp BP Pulse Ox O2 Del Method O2 Flow Rate 99.3 F 105 H 26 H 133/92 H 99 Nasal Cannula 4 02/07/25 06:22 02/07/25 12:32 02/07/25 12:32 02/07/25 12:32 02/07/25 12:32 02/07/25 12:32 02/07/25 12:32 Gen: in no acute distress HEENT: sclera anicteric, moist mucus membranes Neck: supple Lungs: clear to auscultation bilaterally, tachpyneic Heart: regular, tachycardic, no murmurs Abd: soft, non-tender, non-distended Ext: no edema Skin: warm/well-perfused, lumbar wound with serosanguinous drainage Neuro: alert and oriented x3, no focal findings Psych: appropriate affect Labs: BCx x2 02/06/25 positive for GPCs in chains hs-Tn-I 1136->1144 Hb 9.6->7.8 A/P: d1 74yo M with hx CAD s/p CABG, aortic stenosis s/p bioprosthetic valve replacement, DM2, COPD/asthma, HTN, BPH, and GIO not on CPAP s/p right L4-5 lumbar decompression 01/23/25 presenting with fever and admitted with sepsis, found to be bacteremic sepsis due to GPC bacteremia - concern for surgical site infection; MRI L-spine with contrast ordered; Neurosurgery consulted and following; continue vancomycin + piperacillin- tazobactam 02/06-; follow blood cultures speciation/susceptibilities - TTE + ID consultations pending NSTEMI - Cardiology consulted; likely demand ischemia due to sepsis; no anticoagulation indicated hypomagnesesmia - repleted; recheck level CAD - metoprolol tartrate HTN - metoprolol tartrate; hold losartan-HCTZ hypothyroidism - continue LT4 excess alcohol intake - prn CIWA; monitor for withdrawal DM2 - patricio-dose lispro VTE ppx - hold enoxaparin in case surgical intervention needed dispo - TBD In my clinical judgment, the patient requires continued inpatient hospitalization for the following reasons: IV ABX Time Spent With Patient Time: Total time managing care of this patient today ____ minutes.
[2025-02-07 13:52] LABS: Glucose, Whole Blood 159 mg/dL (60-115)
[2025-02-07 14:35] LABS: Magnesium 1.1 mg/dL (1.6-2.6)
[2025-02-07] MEDS: Gabapentin 300 MG CAPSULE 600 MG PO ×2 (14:43→20:04)
[2025-02-07] MEDS: Insulin Lispro 100 UNIT/ML 3 ML VIAL SUBCUT ×2 (14:44→20:13)
[2025-02-07] MEDS: LORazepam 0.5 MG TABLET PO (14:49)
--- NOTE | 2025-02-07 14:55 | PC.NURSE ---
Patient going to MRI now. Will give magnesium and antibiotics when he gets back from MRI.
--- NOTE | 2025-02-07 15:00 | PC.NURSE ---
pt currently in MRI at this time.
[2025-02-07] MEDS: gadobutroL 10 ML VIAL IVPUSH ×2 (15:40→15:59)
--- NOTE | 2025-02-07 17:08 | W.PM.IDCN ---
History of Present Illness Data of Consult Service Date: 02/07/25 Requesting physician: Abraham Price Primary Care Provider: Cornelia Medina MD HPI Reason for consult: bacteremia He presents with weakness and fever and chills and temperature 101.5 as well as tachycardia. He has blood cultures x 2 gram positive cocci. He had L4-L5 laminectomy on January 23 here. He felt well until he went on trip to [place] and had pain at back site. He has AVR. Review of Systems Review of Systems: Yes all other systems are reviewed and are negative PMFSH Past Medical History Medical History Hx: UTI (urinary tract infection) GIO (obstructive sleep apnea) HLD (hyperlipidemia) BPH (benign prostatic hyperplasia) Back pain Asthma Alcohol abuse Adverse effect of anesthetic CAD (coronary artery disease) Hypothyroidism Diabetes Peripheral neuropathy HTN (hypertension) Spinal stenosis Family History Family history: reviewed and not pertinent Surgical History Surgical History History of tonsillectomy and adenoidectomy Hx of colonoscopy (2024) History of open reduction and internal fixation (ORIF) procedure (~2021) Hx of CABG (~2018) Aortic valve replaced (~2018) History of cardiac cath (07/28/17) History of right hip replacement (08/13/17) Social History Social History Are you a primary home care chaplain to a significant other at home: No Do you presently have visiting nurse or other home services: No Patient Tobacco Use Status: Never used Tobacco Smoked in Last 30 Days: No Use of substances other than those prescribed or required for medical reasons: No Advance Directives: No Advance Directives Information Provided: Yes Do you have a plan to hurt others: No Plan service: No Current occupational status: employed Current occupation: [employer] Travel History Ebola Risk: Travel/Contact With Anyone From Affected Area/s: No Has Patient Experienced Ebola Symptoms: No Meds Allergies Allergy/AdvReac Type Severity Reaction Status Date / Time sulfamethoxazole Allergy Severe Itching Verified 02/06/25 22:11 [From Bactrim] trimethoprim [From Bactrim] Allergy Severe Itching Verified 02/06/25 22:11 tizanidine AdvReac Severe Weakness Verified 02/06/25 22:11 Active Medications: Current Medications Acetaminophen (Acetaminophen 325 Mg Tablet) 650 mg PO Q6H PRN PRN Reason: Pain, Mild 1-3,fever,headache Albuterol Sulfate (Albuterol Sulfate 90 Mcg 8 Gm Inhaler) 2 puff INHALE Q6H PRN PRN Reason: wheezing Ascorbic Acid (Ascorbic Acid 500 Mg Tablet) 500 mg PO DAILY [facility] Atorvastatin Calcium (Atorvastatin Calcium 80 Mg Tablet) 80 mg PO BEDTIME [facility] Calcium Carbonate (Calcium Carbonate 750 Mg Tab.Chew) 750 mg PO Q4H PRN PRN Reason: Heartburn Dextrose (Dextrose 50 % 25 Gm/50 Ml Syringe) 25 gm IVPUSH Q15M PRN; Protocol PRN Reason: per Hypoglycemia Standing Ord. Folic Acid (Folic Acid 1 Mg Tablet) 1 mg PO DAILY [facility] Last Admin: 02/07/25 09:54 Dose: 1 mg Gabapentin (Gabapentin 300 Mg Capsule) 600 mg PO TID [facility] Last Admin: 02/07/25 14:43 Dose: 600 mg Glucose (Glucose Gel 15 Gm Gel..Gram.) 15 gm PO Q15M PRN; Protocol PRN Reason: per Hypoglycemia Standing Ord. Hydromorphone HCl (Hydromorphone Hcl 0.5 Mg/0.5 Ml Syringe) 0.5 mg IVPUSH Q3H PRN; Protocol PRN Reason: Pain, Severe (Pain Scale 7-10) Last Admin: 02/07/25 14:43 Dose: 0.5 mg Lactated Ringer's (Lr) 1,000 mls @ 100 mls/hr IVCONT .Q10H [facility] Last Admin: 02/07/25 06:12 Dose: Not Given Piperacillin Sod/Tazobactam (Sod 4.5 gm/ Sodium Chloride) 100 mls @ 200 mls/hr IV Q6H [facility] Last Infusion: 02/07/25 11:58 Dose: Infused Vancomycin HCl 750 mg/ Sodium (Chloride) 265 mls @ 265 mls/hr IV Q8H [facility] Last Infusion: 02/07/25 09:24 Dose: Infused Insulin Human Lispro (Insulin Lispro 100 Unit/Ml 3 Ml Vial) 0 unit SUBCUT QIDACHS [facility]; Protocol Last Admin: 02/07/25 14:44 Dose: 2 unit Levothyroxine Sodium (Levothyroxine Sodium 50 Mcg Tablet) 50 mcg PO DAILY@0600 [facility] Last Admin: 02/07/25 11:28 Dose: 50 mcg Magnesium Hydroxide (Milk Of Magnesia 30 Ml Oral.Susp) 30 ml PO DAILY PRN PRN Reason: Constipation Magnesium Oxide ([facility]ide 400 Mg Tablet) [facility] Melatonin (Melatonin 3 Mg Tablet) 6 mg PO BEDTIME PRN PRN Reason: Insomnia Metoprolol Tartrate (Metoprolol Tartrate 50 Mg Tablet) 50 mg PO BID [facility]; Protocol Last Admin: 02/07/25 11:28 Dose: 50 mg Ondansetron HCl (Ondansetron Hcl 4 Mg/2 Ml Vial) 4 mg IVPUSH Q8H PRN PRN Reason: Nausea and Vomiting Pantoprazole Sodium (Pantoprazole Sodium 40 Mg/10 Ml Vial) 40 mg IVPUSH DAILY@0630 [facility] Last Admin: 02/07/25 06:28 Dose: 40 mg Pharmacy Consult (Consult Rx Vancomycin Dosing) 1 each MISCELLANE DAILY PRN PRN Reason: Consult order Senna (Sennosides 8.6 Mg Tablet) 17.2 mg PO BEDTIME [facility] Sodium Chloride (0.9 % Sodium Chloride Flush 3 Ml Syringe) 3 ml IVFLUSH QSHIFT [facility] Last Admin: 02/07/25 08:06 Dose: Not Given Thiamine HCl (Thiamine Hcl 100 Mg Tablet) 100 mg PO DAILY [facility] Last Admin: 02/07/25 09:54 Dose: 100 mg Vitamin D (Cholecalciferol (Vitamin D3) 25 Mcg Tablet) 25 mcg PO DAILY [facility] Home Medications ?Medication ?Instructions ?Recorded ?Confirmed ?Last Taken ?Type albuterol sulfate 90 mcg/actuation 2 puff inhalation Q6H PRN wheezing 01/29/23 02/07/25 11/25/24 History aerosol inhaler atorvastatin 80 mg tablet 80 mg PO BEDTIME 01/29/23 02/07/25 02/05/25 History gabapentin 300 mg capsule 600 mg PO TID 01/29/23 02/07/25 02/06/25 History insulin degludec 100 unit/mL (3 26 unit subcut BEDTIME 01/29/23 02/07/25 02/05/25 History mL) subcutaneous pen (Tresiba FlexTouch U-100 insulin) levothyroxine 50 mcg tablet 50 mcg PO DAILY@0600 04/07/23 04/16/25 04/15/25 History losartan 50 mg-hydrochlorothiazide 1 tab PO DAILY 01/29/23 02/07/25 02/06/25 History 12.5 mg tablet metformin 1,000 mg tablet 1,000 mg PO BID 01/29/23 02/07/25 02/06/25 History methenamine hippurate 1 gram tablet 1 g PO BID 01/29/23 02/07/25 02/06/25 History metoprolol tartrate 50 mg tablet 50 mg PO BID 01/29/23 02/07/25 02/06/25 History potassium chloride 10 mEq 10 meq PO DAILY 01/29/23 02/07/25 02/06/25 History tablet,extended release ascorbic acid (vitamin C) 500 mg 500 mg PO DAILY 01/10/25 02/07/25 02/06/25 History tablet (Vitamin C) aspirin 81 mg capsule 81 mg PO BEDTIME 01/10/25 02/07/25 02/05/25 History cholecalciferol (vitamin D3) 25 25 mcg PO DAILY 01/10/25 02/07/25 02/06/25 History mcg (1,000 unit) capsule (Vitamin D3) chromium 100 mcg tablet 100 mcg PO DAILY 01/10/25 02/07/25 02/06/25 History insulin lispro 100 unit/mL See Rx Instructions .Route .COMPLEX 01/10/25 02/07/25 02/05/25 History subcutaneous solution (Admelog U-100 Insulin lispro) omega 5-[id number]-fish oil 900 1 cap PO BEDTIME 01/10/25 02/07/25 02/05/25 History mg-1,400 mg capsule,delayed release tamsulosin 0.4 mg capsule 0.4 mg PO BEDTIME 01/10/25 02/07/25 02/05/25 History thiamine HCl (vitamin B1) 100 mg 100 mg PO DAILY 01/10/25 02/07/25 02/06/25 History tablet (Vitamin B-1) acetaminophen 500 mg tablet 500 - 1,000 mg PO Q6H PRN Pain 02/07/25 02/07/25 Unknown History ibuprofen 200 mg tablet 200 - 400 mg PO Q6H PRN Pain 02/07/25 02/07/25 Unknown History Physical Exam Vital Signs: Vital Signs: Last Vital Signs Temp 99.3 F 02/07/25 06:22 Pulse 105 H 02/07/25 12:32 Resp 26 H 02/07/25 12:32 BP 133/92 H 02/07/25 12:32 Pulse Ox 99 02/07/25 12:32 O2 Del Method Nasal Cannula 02/07/25 12:32 O2 Flow Rate 4 02/07/25 12:32 BMI result Body Mass Index 34.1 Const: General: cooperative HEENT: Head: Yes normal to inspection Face and sinus: Yes normal facial exam Mouth: Normal oral and palatal mucosa present Teeth and gingiva: dentition normal Eyes: General: appearance normal, both eyes and all related structures Pupils: Equal, round and reactive pupils present Resp: Effort & Inspection: normal respiratory effort Cardio: Rate: regular rate Rhythm: regular rhythm GI: Palpation (GI): Soft to palpation and nontender : General: Yes no CVA tenderness Back/Spine/Pelvis: Back: no CVA tenderness Skin: Other: back area open wound bleeding,no cellulitis or purulence Neuro: General: moves all extremities Cranial nerves: Yes Equal, round and reactive pupils present Extrem: General: Yes normal to inspection Psych: Appearance: grossly normal Results Labs 02/07/25 04:22 02/07/25 04:22 Labs: Short CBC 02/06/25 02/07/25 Range/Units 22:28 04:22 WBC 8.4 8.2 (4.8-10.8) X10*3/uL Hgb 9.6 L 7.8 L (14.0-18.0) g/dl Hct 28.3 L 23.0 L (42.0-52.0) % Plt Count 219 193 (160-400) X10*3/uL BMP 02/06/25 02/07/25 22:28 04:22 Sodium 133 L 130 L Potassium 5.0 4.5 Chloride 97 102 Carbon Dioxide 23 19 L BUN 24 H 22 H Creatinine 1.05 0.89 Calcium 9.4 8.0 L D Liver Function 02/06/25 02/07/25 Range/Units 22:28 04:22 Total Bilirubin 1.4 H 1.2 H (0.0-1.0) mg/dL AST 56 H 58 H (5-37) U/L ALT 58 H 45 H (0-40) U/L Alkaline Phosphatase 128 H 104 (39-117) U/L Albumin 3.7 2.9 L (3.5-5.0) g/dL Urine 02/06/25 Range/Units 23:19 Urine Color Yellow Urine Appearance Clear Urine pH 7.0 (5.0-9.0) Ur Specific Orwell 1.015 (1.005-1.025) Urine Protein 100 (2+) H (Neg-Trace) mg/dL Urine Glucose (UA) Negative (Negative) mg/dL Microbiology Microbiology Results: Microbiology 02/06/25 22:28 Blood - Venous Blood Culture - Preliminary Prelim: GPC Gram Stain only 02/06/25 22:47 Blood - Venous Blood Culture - Preliminary Prelim: GPC Gram Stain only 02/06/25 22:47 Back Gram Stain - Final 02/06/25 22:47 Back Routine Culture - Preliminary Culture in progress. Assessment and Plan (1) Insulin dependent type 2 diabetes mellitus: Status: Acute (2) Hx of aortic valve replacement: Status: Acute (3) Postoperative back pain: Status: Acute (4) Sepsis: Qualifiers: Sepsis type: sepsis due to unspecified organism Sepsis acute organ dysfunction status: unspecified Qualified Code(s): A41.9 - Sepsis, unspecified organism Status: Acute Plan Vancomycin concern over staph/MRSA/PVE concern Check TTE. Vancomycin Await MRI LS spine,probably 6 weeks IV antibiotics. stop Zosyn Await full cultuer.
--- NOTE | 2025-02-07 17:30 | PC.NURSE ---
delay in medication administration d/t pt being off unit at MRI and then having echocardiogram completed. pt returned from being off unit at this time - medication administered per provider order. vitals stable/up to date. 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 pt remains on 4L via NC - no sob/wob noted. respirations even/unlabored. plan of care ongoing. call placed within reach.
[2025-02-07 18:56] LABS: Glucose, Whole Blood 140 mg/dL (60-115)
[2025-02-07] MEDS: Sennosides 8.6 MG TABLET 17.2 MG PO (20:04)
[2025-02-07] MEDS: Melatonin 3 MG TABLET 6 MG PO (20:04)
[2025-02-07] MEDS: Atorvastatin Calcium 80 MG TABLET PO (20:04)
[2025-02-07] MEDS: 0.9 % Sodium Chloride Flush 3 ML SYRINGE IVFLUSH (20:05)
[2025-02-07 20:28] LABS: Glucose, Whole Blood 191 mg/dL (60-115)
[2025-02-07 21:17] LABS: Vancomycin Random 21.5 mcg/mL (15-20)
[2025-02-08] VITALS (10 sets, daily range): BP systolic 119–181; BP diastolic 63–88; PULSE 80–117; RESP 18–20; TEMP 35.8–37.3; O2SAT 90–98
[2025-02-08] MEDS: Levothyroxine Sodium 50 MCG TABLET PO (03:36)
[2025-02-08] MEDS: Pantoprazole Sodium 40 MG/10 ML VIAL IVPUSH (03:36)
[2025-02-08] MEDS: Lactated Ringers 1,000 ML 100 ML IVCONT (03:37)
[2025-02-08] MEDS: HYDROmorphone HCl 0.5 MG/0.5 ML SYRINGE IVPUSH ×4 (03:37→20:57)
[2025-02-08] MEDS: vancomycin HCL 1,000 MG in 0.9 % Sodium Chloride 250 ML 270 MG IV ×2 (06:39→16:45)
[2025-02-08 07:10] LABS: Glucose, Whole Blood 108 mg/dL (60-115)
[2025-02-08 07:33] LABS: Hematocrit 25.6 % (42.0-52.0); Hemoglobin 8.5 g/dl (14.0-18.0); Mean Corpuscular HGB Conc 33.2 g/dl (31.0-36.0); Mean Corpuscular Hemoglobin 31.6 pg (27.0-33.0); Mean Corpuscular Volume 95.2 fL (80.0-98.0); Mean Platelet Volume 9.6 fL (9.4-12.4); Platelet Count 202 X10*3/uL (160-400); Red Blood Count 2.69 X10*6/uL (4.60-5.80); Red Cell Distribution Width 14.6 % (11.0-16.0); White Blood Count 8.9 X10*3/uL (4.8-10.8)
[2025-02-08 07:48] LABS: Anion Gap 12 (12-20); Blood Urea Nitrogen 17 mg/dL (9-16); Calcium 8.8 mg/dL (8.4-10.2); Carbon Dioxide 24 mmol/L (22-29); Chloride 101 mmol/L (96-108); Creatinine Clr Calc Pharmacy 101.1; Estimated Glomerular Filt Rate > 60; Glucose Random 122 mg/dL (60-115); Magnesium 1.8 mg/dL (1.6-2.6); Potassium 4.5 mmol/L (3.3-5.1); Sodium 132 mmol/L (135-145)
[2025-02-08 07:50] LABS: Prothrombin Time 11.8 SEC (10.9-12.4)
[2025-02-08] MEDS: Ascorbic Acid 500 MG TABLET PO (08:12)
[2025-02-08] MEDS: Cholecalciferol (Vitamin D3) 25 MCG TABLET PO (08:12)
[2025-02-08] MEDS: Gabapentin 300 MG CAPSULE 600 MG PO ×3 (08:12→20:11)
[2025-02-08] MEDS: Metoprolol Tartrate 50 MG TABLET PO ×2 (08:12→20:11)
[2025-02-08] MEDS: Thiamine HCL 100 MG TABLET PO (08:12)
[2025-02-08] MEDS: Folic Acid 1 MG TABLET PO (08:14)
[2025-02-08] MEDS: Magnesium Oxide 400 MG TABLET 800 MG PO ×2 (08:14→16:43)
[2025-02-08] MEDS: 0.9 % Sodium Chloride Flush 3 ML SYRINGE IVFLUSH ×2 (08:14→20:14)
--- NOTE | 2025-02-08 10:07 | PM.PNCARD ---
Subjective Subjective Date of Service: 02/08/25 Principal diagnosis: NSTEMI, CAD, AVR Interval history: Patient still having significant amount of pain. He says better with every 4 hour infusion. Denies any chest pain or shortness of breath. Remains sinus tachycardia. Blood cultures positive for Enterococcus/Streptococcus species. Echocardiogram shows low normal LV ejection fraction with increased gradient across bioprosthetic aortic valve. Endocarditis can not be ruled out Review of Systems Constitutional: Reports body ache(s), Reports chills, Reports fever(s) and Reports weakness Cardiovascular: Reports no additional cardiovascular complaints Respiratory: Reports no additional respiratory complaints Gastrointestinal: Reports no additional gastrointestinal complaints Musculoskeletal: Reports back pain Reports weakness Physical Exam Vital Signs: Last Vital Signs Temp 97.2 F 02/08/25 08:00 Pulse 98 02/08/25 08:12 Resp 18 02/08/25 08:00 BP 144/87 H 02/08/25 08:12 Pulse Ox 96 02/08/25 08:00 O2 Del Method Nasal Cannula 02/08/25 08:00 O2 Flow Rate 4 02/08/25 08:00 BMI result Body Mass Index 37.5 Const General: cooperative, alert, awake and in distress severe and other ( due to pain) Nutritional Appearance: obese Orientation/consciousness: patient oriented x3 HEENT Head: Yes normocephalic and Yes atraumatic Neck Neck: Yes trachea midline, Yes supple and Yes no JVD Resp Effort & Inspection: normal respiratory effort Auscultation: clear to auscultation bilaterally Cardio Jugular venous distension: no JVD Rate: tachycardic Rhythm: abnormal rhythm with ectopic beats Heart sounds: S1 normal heart sound present, S2 normal heart sound present, no click, no gallops and no murmurs GI Auscultation: normal bowel sounds Skin General skin exam: no rashes or lesions noted Neuro General: patient oriented x3 and no focal motor deficits Extrem General: Yes no clubbing, cyanosis or edema Objective Labs and Meds 02/08/25 07:16 02/08/25 07:16 Lab results: Laboratory Results - last 24 hr 02/07/25 02/07/25 02/07/25 04:22 09:43 10:52 WBC RBC Hgb Hct MCV MCH MCHC RDW Plt Count MPV Absolute Nucleated RBC Nucleated RBC % (auto) PT INR Sodium Potassium Chloride Carbon Dioxide Anion Gap BUN Creatinine Estim Creat Clear Calc Estimated GFR POC Glucose Random Glucose Calcium Magnesium 1.1 L* Troponin I High Sens 1143.7 H* Random Vancomycin Blood Type B Positive Antibody Screen NEGATIVE 02/07/25 02/07/25 02/07/25 13:44 18:41 20:09 WBC RBC Hgb Hct MCV MCH MCHC RDW Plt Count MPV Absolute Nucleated RBC Nucleated RBC % (auto) PT INR Sodium Potassium Chloride Carbon Dioxide Anion Gap BUN Creatinine Estim Creat Clear Calc Estimated GFR POC Glucose 159 H 140 H 191 H Random Glucose Calcium Magnesium Troponin I High Sens Random Vancomycin Blood Type Antibody Screen 02/07/25 02/08/25 02/08/25 20:52 07:02 07:16 WBC 8.9 RBC 2.69 L Hgb 8.5 L Hct 25.6 L MCV 95.2 MCH 31.6 MCHC 33.2 RDW 14.6 Plt Count 202 MPV 9.6 Absolute Nucleated RBC 0.000 Nucleated RBC % (auto) 0.0 PT 11.8 INR 1.0 Sodium 132 L Potassium 4.5 Chloride 101 Carbon Dioxide 24 Anion Gap 12 BUN 17 H Creatinine 0.79 Estim Creat Clear Calc 101.1 Estimated GFR > 60 POC Glucose 108 Random Glucose 122 H Calcium 8.8 D Magnesium 1.8 Troponin I High Sens Random Vancomycin 21.5 H Blood Type Antibody Screen Imaging Radiologist's impression: Impressions Lumbar Spine MRI 02/07/25 15:08 IMPRESSION: 1. Postoperative right hemilaminectomy and microdiscectomy at L3-4. 2. Findings suggesting developing discitis/osteomyelitis at L2-3 with increasing edema throughout the L2 and superior L3 vertebral bodies. 3. Findings suggesting developing osteomyelitis/septic arthritis involving the L4-5 facet joints, with bone marrow edema also noted throughout the spinous processes of L3 and L4, also suspicious for developing infection. 4. There is diffuse dural enhancement and mild thickening throughout the lumbar spine spanning L1-2 through the termination of the thecal sac at S2. There is no discrete intradural or epidural abscess at this time. Swelling of the dorsal epidural fat pad L2-3, L3-4, and L4-5 is present, with mildly worsening mass effect on the dorsal thecal sac at these levels. There is worsening severe central canal stenosis at L4-5 which is now severe. 5. There is a small right paraspinous fluid collection along the surgical tract measuring 4.0 x 1.0 x 2.5 cm as discussed above. Unknown if this is a small abscess versus a postoperative seroma, although given the degree of surrounding enhancement, infection is suspected. 6. Stable extensive spondylotic findings otherwise, of which referral to the prior report is recommended. Electronically signed by: Bobby Pena MD 02/08/2025 08:35 AM EDT RP Progress Note: A&P Assessment and plan (1) NSTEMI (non-ST elevated myocardial infarction): Status: Acute Assessment and Plan: NSTEMI related to severe sepsis and secondary to demand ischemia. No indication for anticoagulation therapy. Continue aspirin, statins. Maximize metoprolol to reduce myocardial oxygen demand given patient's sinus tachycardia which is secondary to significant pain and infection. This needs to be addressed. LV ejection fraction is borderline low but preserved. No signs or symptoms of heart failure no ischemic symptoms at current point in time. Eventually will require ischemic workup to evaluate for graft patency once his medical/surgical issues resolved. (2) Hx of aortic valve replacement: Status: Acute Assessment and Plan: Increased gradient across the aortic valve of unclear significance. Question patient prosthesis mismatch given the size of the valve is 21 mm which is under size for his body surface area. Also could represent valve deterioration. Patient also underlying mitral stenosis. His current source of infection appears to be the surgical site which needs to be addressed. If this is taking care of and there was no further infection at the surgical site and remains febrile and/or septic will need further evaluation with a SYLVAIN. For now continue aggressive risk factor modifications above. For now will sign of the case. Thank you for allowing me to partake in his care Time Spent With Patient Time: Total time managing care of this patient today ____ minutes. Progress Note: Quality Stroke Does the patient have a stroke diagnosis?: No Reason for No Anti-thrombotic by Day Two: N/A - Med Ordered Procedures Date of Service Date of Service: 02/08/25
--- NOTE | 2025-02-08 10:31 | MHC.CM.PN ---
Addendum entered by Cindy Peace 02/08/25 11:47: [facility] does not cover the [facility] area, where Patient lives; a broad search for a VNA has been initiated and CM will continue to follow. Original Note: Per ROUNDS discussion, Patient will require LT IV ABT @ home; fellow MADHURI/iGa met with Patient at bedside to discuss dc planning and this CM has referred Patient to [facility]. DC is anticipated for early next week and CM will continue to follow.
[2025-02-08] MEDS: Albuterol/Iprat 2.5/0.5MG 3 ML AMPUL.NEB INHALE ×3 (11:14→18:40)
[2025-02-08 11:39] LABS: Glucose, Whole Blood 180 mg/dL (60-115)
[2025-02-08] MEDS: Insulin Lispro 100 UNIT/ML 3 ML VIAL SUBCUT ×3 (12:15→20:59)
--- NOTE | 2025-02-08 12:32 | MHC.CM.PN ---
Addendum entered by Cindy Peace 02/08/25 12:46: CM met with Patient at bedside; he has chosen [facility]. CM will follow. Original Note: [facility] has accepted Patient and [facility] is following.
--- NOTE | 2025-02-08 14:26 | HO.NEUROPN_ITS ---
Neurosurgery Operative Note Date of Service: 02/08/25 Narrative: Postop day 16., L4-5 hemilaminotomy Patient readmitted for postoperative fever, bacteremia, sepsis. Positive blood cultures for what looks like now some version of strep and Enterococcus. This is growing in the wound and in the blood cultures. Patient's white count is normal, ESR is elevated. The patient reports improved back pain now that he has been on antibiotics and the oxycodone. He does have a component of ra diculopathy down his legs as well now. No cauda equina symptoms. His MRI was reviewed with Dr. Fox, this shows postsurgical enhancement in the surgery area. The radiologist is reporting that there may also be some diskitis osteomyelitis at L2-3, and septic arthritis of the facet joints at L4-5. There is a small enhancing fluid collection in the back. Patient is on vancomycin, infectious Disease is following. Afebrile, vital signs stable, systolic blood pressure elevated at times. Physical exam: Patient examined at bedside today with Dr. Fox, the patient is awake alert oriented, however at times is impulsive and Appears a little confused. He is demonstrating full strength of bilateral lower extremities with normal sensation. His back wound has no outer redness or erythema, however with palpation there is some brownish thick material which is coming out in small to moderate amounts. Impression: Postop day 16. L4-5 hemilaminotomy, patient presents postoperatively with what looks like a wound infection, positive for some version of strep and Enterococcus. Looks like some of the infection has extended into the facet joint at L4-5 and possibly diskitis osteomyelitis at L2- 3. Patient is on vancomycin, ID is following. He is afebrile, his strength is good in his pain is well managed at this point. Dr. Fox is recommending IV antibiotics as the treatment of choice. No role for surgery. We did ask the staff to have the wound care nurse evaluate the patient and do some version of packing if possible. There is a small opening at the top which may be able to be packed with iodoform. Also, patient's mentation is altered, he has a history of alcohol use and this could be early withdrawal. He is on a CIWA scale. Patient seen at bedside with Dr. Fox.
--- NOTE | 2025-02-08 15:49 | P.PNIM_ITS ---
Subjective Subjective Date of Service: 02/08/25 Interval History: back pain improved, no more fever Review of Systems Review of Systems: Yes all other systems are reviewed and are negative Physical Exam 2 Vital Signs: Vital Signs: Last Vital Signs Temp 98.8 F 02/08/25 15:14 Pulse 98 02/08/25 15:31 Resp 18 02/08/25 15:31 BP 151/88 H 02/08/25 15:14 Pulse Ox 91 L 02/08/25 15:14 O2 Del Method Nasal Cannula 02/08/25 15:14 O2 Flow Rate 3 02/08/25 15:14 BMI result Body Mass Index 37.5 Gen: in no acute distress HEENT: sclera anicteric, moist mucus membranes Neck: supple Lungs: clear to auscultation bilaterally, tachpyneic Heart: regular, tachycardic, no murmurs Abd: soft, non-tender, non-distended Ext: no edema Skin: warm/well-perfused, lumbar wound with serosanguinous drainage Neuro: alert and oriented x3, no focal findings Psych: appropriate affect Objective Data Active Medications Acetaminophen (Acetaminophen 325 Mg Tablet) 650 mg PO Q6H PRN PRN Reason: Pain, Mild 1-3,fever,headache Albuterol Sulfate (Albuterol Sulfate 90 Mcg 8 Gm Inhaler) 2 puff INHALE Q6H PRN PRN Reason: wheezing Albuterol/Ipratropium (Albuterol/Iprat 2.5/0.5mg 3 Ml Ampul.Neb) 3 ml INHALE RQ4H WHILE AWAKE [facility] Last Admin: 02/08/25 15:26 Dose: 3 ml Documented By: DON Ascorbic Acid (Ascorbic Acid 500 Mg Tablet) 500 mg PO DAILY [facility] Last Admin: 02/08/25 08:12 Dose: 500 mg Documented By: DARLYN Atorvastatin Calcium (Atorvastatin Calcium 80 Mg Tablet) 80 mg PO BEDTIME [facility] Last Admin: 02/07/25 20:04 Dose: 80 mg Documented By: BRYAN Calcium Carbonate (Calcium Carbonate 750 Mg Tab.Chew) 750 mg PO Q4H PRN PRN Reason: Heartburn Dextrose (Dextrose 50 % 25 Gm/50 Ml Syringe) 25 gm IVPUSH Q15M PRN; Protocol PRN Reason: per Hypoglycemia Standing Ord. Folic Acid (Folic Acid 1 Mg Tablet) 1 mg PO DAILY [facility] Last Admin: 02/08/25 08:14 Dose: 1 mg Documented By: DARLYN Gabapentin (Gabapentin 300 Mg Capsule) 600 mg PO TID [facility] Last Admin: 02/08/25 08:12 Dose: 600 mg Documented By: DARLYN Glucose (Glucose Gel 15 Gm Gel..Gram.) 15 gm PO Q15M PRN; Protocol PRN Reason: per Hypoglycemia Standing Ord. Hydromorphone HCl (Hydromorphone Hcl 0.5 Mg/0.5 Ml Syringe) 0.5 mg IVPUSH Q3H PRN; Protocol PRN Reason: Pain, Severe (Pain Scale 7-10) Last Admin: 02/08/25 12:20 Dose: 0.5 mg Documented By: DARLYN Vancomycin HCl 1,000 mg/ (Sodium Chloride) 270 mls @ 270 mls/hr IV Q12H [facility] Last Infusion: 02/08/25 07:50 Dose: Infused Documented By: BRYAN Insulin Human Lispro (Insulin Lispro 100 Unit/Ml 3 Ml Vial) 0 unit SUBCUT QIDACHS [facility]; Protocol Last Admin: 02/08/25 12:15 Dose: 2 unit Documented By: DARLYN Levothyroxine Sodium (Levothyroxine Sodium 50 Mcg Tablet) 50 mcg PO DAILY@0600 [facility] Last Admin: 02/08/25 03:36 Dose: 50 mcg Documented By: BRYAN Magnesium Hydroxide (Milk Of Magnesia 30 Ml Oral.Susp) 30 ml PO DAILY PRN PRN Reason: Constipation [facility]esium [facility]ide ([facility] 400 Mg Tablet) [facility] Admin: 02/08/25 08:14 Dose: 800 mg Documented By: DARLYN Melatonin (Melatonin 3 Mg Tablet) 6 mg PO BEDTIME PRN PRN Reason: Insomnia Last Admin: 02/07/25 20:04 Dose: 6 mg Documented By: BRYAN Metoprolol Tartrate (Metoprolol Tartrate 50 Mg Tablet) 50 mg PO BID [facility]; Protocol Last Admin: 02/08/25 08:12 Dose: 50 mg Documented By: DARLYN Ondansetron HCl (Ondansetron Hcl 4 Mg/2 Ml Vial) 4 mg IVPUSH Q8H PRN PRN Reason: Nausea and Vomiting Pantoprazole Sodium (Pantoprazole Sodium 40 Mg/10 Ml Vial) 40 mg IVPUSH DAILY@0630 [facility] Last Admin: 02/08/25 03:36 Dose: 40 mg Documented By: BRYAN Pharmacy Consult (Consult Rx Vancomycin Dosing) 1 each MISCELLANE DAILY PRN PRN Reason: Consult order Senna (Sennosides 8.6 Mg Tablet) 17.2 mg PO BEDTIME [facility] Last Admin: 02/07/25 20:04 Dose: 17.2 mg Documented By: BRYAN Sodium Chloride (0.9 % Sodium Chloride Flush 3 Ml Syringe) 3 ml IVFLUSH QSHIFT [facility] Last Admin: 02/08/25 08:14 Dose: 3 ml Documented By: DARLYN Thiamine HCl (Thiamine Hcl 100 Mg Tablet) 100 mg PO DAILY [facility] Last Admin: 02/08/25 08:12 Dose: 100 mg Documented By: DARLYN Vitamin D (Cholecalciferol (Vitamin D3) 25 Mcg Tablet) 25 mcg PO DAILY [facility] Last Admin: 02/08/25 08:12 Dose: 25 mcg Documented By: DARLYN Labs 02/08/25 07:16 02/08/25 07:16 Labs: Laboratory Results - last 24 hr 02/07/25 02/07/25 02/07/25 18:41 20:09 20:52 MCV MCH MCHC RDW Plt Count MPV Absolute Nucleated RBC Nucleated RBC % (auto) PT INR Anion Gap Estim Creat Clear Calc Estimated GFR POC Glucose 140 H 191 H Random Glucose Calcium Magnesium Random Vancomycin 21.5 H 02/08/25 02/08/25 02/08/25 07:02 07:16 11:32 MCV 95.2 MCH 31.6 MCHC 33.2 RDW 14.6 Plt Count 202 MPV 9.6 Absolute Nucleated RBC 0.000 Nucleated RBC % (auto) 0.0 PT 11.8 INR 1.0 Anion Gap 12 Estim Creat Clear Calc 101.1 Estimated GFR > 60 POC Glucose 108 180 H Random Glucose 122 H Calcium 8.8 D Magnesium 1.8 Random Vancomycin MRI L-spine 02/07/25 1. Postoperative right hemilaminectomy and microdiscectomy at L3-4. 2. Findings suggesting developing discitis/osteomyelitis at L2-3 with increasing edema throughout the L2 and superior L3 vertebral bodies. 3. Findings suggesting developing osteomyelitis/septic arthritis involving the L4-5 facet joints, with bone marrow edema also noted throughout the spinous processes of L3 and L4, also suspicious for developing infection. 4. There is diffuse dural enhancement and mild thickening throughout the lumbar spine spanning L1-2 through the termination of the thecal sac at S2. There is no discrete intradural or epidural abscess at this time. Swelling of the dorsal epidural fat pad L2-3, L3-4, and L4-5 is present, with mildly worsening mass effect on the dorsal thecal sac at these levels. There is worsening severe central canal stenosis at L4-5 which is now severe. 5. There is a small right paraspinous fluid collection along the surgical tract measuring 4.0 x 1.0 x 2.5 cm as discussed above. Unknown if this is a small abscess versus a postoperative seroma, although given the degree of surrounding enhancement, infection is suspected. 6. Stable extensive spondylotic findings otherwise, of which referral to the prior report is recommended. Microbiology Microbiology Results: Microbiology 02/06/25 22:47 Blood Culture - Preliminary Blood - Venous Enterococcus/Streptococcus sp 02/06/25 22:28 Blood Culture - Preliminary Blood - Venous Enterococcus/Streptococcus sp 02/06/25 22:47 Gram Stain - Final Back Routine Culture - Preliminary Enterococcus/Streptococcus sp Assessment and Plan (1) Osteomyelitis: Status: Acute Plan d2 for 74yo M with hx CAD s/p CABG, aortic stenosis s/p bioprosthetic valve replacement, DM2, COPD/asthma, HTN, BPH, and GIO not on CPAP s/p right L4-5 lumbar decompression 01/23/25 presenting with fever and admitted with sepsis, found to be bacteremic with Enterococcus/Streptococcus sepsis due to Enterococcus/Streptococcus bacteremia with L2-L4 discitis/osteomyelitis/septic arthritis - reviewed with Neurosurgery; fluid collection along surgical incision likely seroma and regardless is spontaneously draining; no operative washout indicated; recommend wound care with iodoform packing - continue vancomycin 02/06-, piperacillin-tazobactam discontinued 02/06-02/07; ID consulted and will need 6 wk of IV ABX from culture clearance - repeat BCx in AM - TTE 02/07: 1. Technically difficult study despite use of contrast agent 2. Low normal LV ejection fraction 50-55% with mild LVH with pseudonormal filling pattern 3. Moderately dilated right ventricular with preserved contractility 4. Moderately dilated right and left atrium 5. Bioprosthetic aortic valve present with evidence of stenosis with increased gradient, could be related to patient prosthesis mismatch 5. Calcific mitral valve changes noted with possible mitral stenosis 6. Normal measured RV systolic pressure NSTEMI - Cardiology consulted; likely demand ischemia due to sepsis; no anticoagulation indicated but will need outpt ischemic workup to ensure graft patency hypomagnesesmia - repleted CAD - metoprolol tartrate HTN - metoprolol tartrate; resume losartan; hold HCTZ hypothyroidism - continue LT4 excess alcohol intake - prn CIWA; monitor for withdrawal DM2 - patricio-dose lispro VTE ppx - enoxaparin dispo - PT consult In my clinical judgment, the patient requires continued inpatient hospitalization for the following reasons: IV ABX Total time managing care of this patient today: 50 minutes. Quality Stroke Does the patient have a stroke diagnosis?: No Reason for No Anti-thrombotic by Day Two: N/A - Med Ordered VTE Prior VTE?: No VTE Risk Level:: Medical - moderate - high VTE Device Contraindication: N/A - Device Ordered VTE Drug Contraindication: N/A - Med Ordered
[2025-02-08 15:56] LABS: Glucose, Whole Blood 203 mg/dL (60-115)
[2025-02-08] MEDS: Losartan Potassium 50 MG TABLET PO (16:44)
[2025-02-08 16:48] LABS: Vancomycin Random 14.7 mcg/mL (15-20)
[2025-02-08 16:56] LABS: B Type Natriuretic Peptide 683 pg/mL (<100)
--- NOTE | 2025-02-08 16:59 | HE.PHANOTE ---
Re: Yomaira Renal function is improving. Trough returned at 14.7. Continue current dose of 1000mg q12h, with predicted AUC 471, predicted trough 14.4. Next trough 02/09 @ 1600.
[2025-02-08] MEDS: Sennosides 8.6 MG TABLET 17.2 MG PO (20:12)
[2025-02-08] MEDS: Atorvastatin Calcium 80 MG TABLET PO (20:12)
[2025-02-08 20:30] LABS: Glucose, Whole Blood 186 mg/dL (60-115)
[2025-02-09] VITALS (14 sets, daily range): BP systolic 103–179; BP diastolic 54–90; PULSE 78–102; RESP 16–20; TEMP 36.2–37.2; O2SAT 90–100
[2025-02-09] MEDS: Albuterol Sulfate 90 MCG 8 GM INHALER 2 PUFF INHALE (03:26)
[2025-02-09] MEDS: vancomycin HCL 1,000 MG in 0.9 % Sodium Chloride 250 ML 270 MG IV (05:00)
[2025-02-09] MEDS: Pantoprazole Sodium 40 MG/10 ML VIAL IVPUSH (05:00)
[2025-02-09] MEDS: Levothyroxine Sodium 50 MCG TABLET PO (05:00)
[2025-02-09] MEDS: HYDROmorphone HCl 0.5 MG/0.5 ML SYRINGE IVPUSH (06:07)
[2025-02-09 07:01] LABS: Hematocrit 23.8 % (42.0-52.0); Hemoglobin 7.8 g/dl (14.0-18.0); Mean Corpuscular HGB Conc 32.8 g/dl (31.0-36.0); Mean Corpuscular Hemoglobin 30.7 pg (27.0-33.0); Mean Corpuscular Volume 93.7 fL (80.0-98.0); Mean Platelet Volume 9.8 fL (9.4-12.4); Platelet Count 214 X10*3/uL (160-400); Red Blood Count 2.54 X10*6/uL (4.60-5.80); Red Cell Distribution Width 14.9 % (11.0-16.0); White Blood Count 6.9 X10*3/uL (4.8-10.8)
[2025-02-09 07:09] LABS: Anion Gap 12 (12-20); Blood Urea Nitrogen 11 mg/dL (9-16); Calcium 8.4 mg/dL (8.4-10.2); Carbon Dioxide 24 mmol/L (22-29); Chloride 98 mmol/L (96-108); Creatinine Clr Calc Pharmacy 109.4; Estimated Glomerular Filt Rate > 60; Glucose Random 172 mg/dL (60-115); Potassium 3.8 mmol/L (3.3-5.1); Sodium 130 mmol/L (135-145)
[2025-02-09] MEDS: Albuterol/Iprat 2.5/0.5MG 3 ML AMPUL.NEB INHALE ×4 (07:22→20:08)
[2025-02-09 07:33] LABS: Glucose, Whole Blood 192 mg/dL (60-115)
[2025-02-09] MEDS: Cholecalciferol (Vitamin D3) 25 MCG TABLET PO (07:41)
[2025-02-09] MEDS: Magnesium Oxide 400 MG TABLET 800 MG PO ×2 (07:41→17:06)
[2025-02-09] MEDS: Losartan Potassium 50 MG TABLET PO (07:41)
[2025-02-09] MEDS: Gabapentin 300 MG CAPSULE 600 MG PO ×3 (07:41→21:22)
[2025-02-09] MEDS: Ascorbic Acid 500 MG TABLET PO (07:41)
[2025-02-09] MEDS: Acetaminophen 325 MG TABLET 650 MG PO (07:42)
[2025-02-09] MEDS: Metoprolol Tartrate 50 MG TABLET PO ×2 (07:42→21:22)
[2025-02-09] MEDS: Thiamine HCL 100 MG TABLET PO (07:43)
[2025-02-09] MEDS: Insulin Lispro 100 UNIT/ML 3 ML VIAL SUBCUT ×4 (07:43→21:22)
[2025-02-09] MEDS: Folic Acid 1 MG TABLET PO (07:43)
[2025-02-09 08:02] LABS: Immature Retic Fraction 11.7 % (2.3-13.4); Retic HGB Equivalent 22.8 pg (30.0-35.0); Reticulocyte Percent 1.5 % (0.5-1.8); Reticulocytes Absolute 0.036 X10*6/uL (0.026-0.095)
[2025-02-09 08:12] LABS: Iron 14 mcg/dL (45-160); Lactate Dehydrogenase 302 U/L (118-273); Magnesium 1.7 mg/dL (1.6-2.6); Percent Iron Saturation 8 % (15-50); Total Iron Binding Capacity 183 mcg/dL (228-428); Unsaturated Iron Binding 169 ug/dL
[2025-02-09 08:27] LABS: Ferritin 575 ng/mL (20-250)
--- NOTE | 2025-02-09 10:09 | HO.WOUND ---
Wound Consult: Initial 74yr old?male admitted to [facility] on02/07/25 - See progress notes and H&P for detailed history.? Wound consult placed for Lower Back dehiscence incision.? Patient agreeable to assessment and photo documentation.? Reviewed recommendations with MARTHA Liu agreeable to topical recommendations. Lower Back Etiology: ??Surgical Incision Dehiscence Measurements: 1cm x 0.3cm x 3cm with tunnel at 6 o'clock max depth of 6cm Wound Bed: difficult to assess yellow slough at wound edges Drainage / Odor: moderate amount of serosang Edges: ? well defined unattached Lilly wound: ?mild erythema No Induration, Fluctuance or Warmth noted Pain: denies at this time Goals of Treatment: ? Light packing with Iodoform daily. Recommendations: 1. Turn and Reposition every 2 hours and as needed for patient comfort.? Use pillows or wedges to support off loading positions. 2. Off Load all bony prominences with use of pillows and heel boots if needed.? Apply Preventative foams where needed. ? 3. Monitor for incontinence and moisture control, use barrier creams when needed for prevention and treatment. 4. Provide adequate and supplemental nutrition.? 5. When applicable maintain blood glucose levels per Providers order. Lower Bbck - Cleanse wit ns moist gauze, pat dry. Apply skin prep to periwound, lightly pack with Iodoform cover with Foam dressing or dry gauze and ABD pad. Change daily. Recommend follow up out pt with surgery team. At time of d/c may consider durafiber AG to pack wound bed to allow for time between dressing changes as patient will not be able to provide self care given location and VNA will not likly be able to see daily. Re-consult wound care Nurse for wound deterioration or wound changes.
--- NOTE | 2025-02-09 10:20 | MHC.CM.PN ---
Per ROUNDS discussion, Patient is not yet medically cleared for dc (IV ABT choice still to be determined); home with [facility] is the goal (Per MD, no earlier than Wednesday02/13/2025)and CM will continue to follow.
--- NOTE | 2025-02-09 10:38 | P.PNCA_ITS ---
Subjective Subjective Date of Service: 02/09/25 Principal diagnosis: NSTEMI, CAD, AVR Interval history: No cardiac symptoms. Hemodynamically stable actually blood pressure is elevated at this point time. No arrhythmias noted. He said he underwent drainage yesterday and feels a lot better in terms of the pain. No fevers. Review of Systems Constitutional: Reports weakness Cardiovascular: Reports no additional cardiovascular complaints Respiratory: Reports no additional respiratory complaints Musculoskeletal: Reports back pain Reports weakness Physical Exam Vital Signs: Last Vital Signs Temp 97.2 F 02/09/25 07:28 Pulse 78 02/09/25 07:28 Resp 20 02/09/25 07:28 BP 179/84 H 02/09/25 07:28 Pulse Ox 100 02/09/25 07:28 O2 Del Method Room Air 02/09/25 07:28 O2 Flow Rate 3 02/09/25 03:26 BMI result Body Mass Index 37.5 Const General: cooperative, alert, awake and in distress severe and other ( due to pain) Nutritional Appearance: obese Orientation/consciousness: patient oriented x3 HEENT Head: Yes normocephalic and Yes atraumatic Neck Neck: Yes trachea midline, Yes supple and Yes no JVD Resp Effort & Inspection: normal respiratory effort Auscultation: clear to auscultation bilaterally Cardio Jugular venous distension: no JVD Rate: tachycardic Rhythm: abnormal rhythm with ectopic beats Heart sounds: S1 normal heart sound present, S2 normal heart sound present, no click, no gallops and no murmurs GI Auscultation: normal bowel sounds Skin General skin exam: no rashes or lesions noted Neuro General: patient oriented x3 and no focal motor deficits Extrem General: Yes no clubbing, cyanosis or edema Objective Labs and Meds 02/09/25 06:19 02/09/25 06:19 Lab results: Laboratory Results - last 24 hr 02/08/25 02/08/25 02/08/25 11:32 15:45 16:02 WBC RBC Hgb Hct MCV MCH MCHC RDW Plt Count MPV Absolute Nucleated RBC Nucleated RBC % (auto) Absolute Retic Percent Retic Immature Retic Fraction Retic Hgb Equivalent Sodium Potassium Chloride Carbon Dioxide Anion Gap BUN Creatinine Estim Creat Clear Calc Estimated GFR POC Glucose 180 H 203 H Random Glucose Calcium Magnesium Iron TIBC % Saturation Unsat Iron Binding Ferritin Lactate Dehydrogenase B-Natriuretic Peptide 683 H Random Vancomycin 14.7 L 02/08/25 02/09/25 02/09/25 20:23 06:19 07:24 WBC 6.9 RBC 2.54 L Hgb 7.8 L Hct 23.8 L MCV 93.7 MCH 30.7 MCHC 32.8 RDW 14.9 Plt Count 214 MPV 9.8 Absolute Nucleated RBC 0.000 Nucleated RBC % (auto) 0.0 Absolute Retic 0.036 Percent Retic 1.5 Immature Retic Fraction 11.7 Retic Hgb Equivalent 22.8 L Sodium 130 L Potassium 3.8 Chloride 98 Carbon Dioxide 24 Anion Gap 12 BUN 11 Creatinine 0.73 Estim Creat Clear Calc 109.4 Estimated GFR > 60 POC Glucose 186 H 192 H Random Glucose 172 H Calcium 8.4 Magnesium 1.7 Iron 14 L TIBC 183 L % Saturation 8 L Unsat Iron Binding 169 Ferritin 575 H Lactate Dehydrogenase 302 H B-Natriuretic Peptide Random Vancomycin Imaging Radiologist's impression: Impressions Chest X-Ray 02/08/25 11:10 IMPRESSION: Limited examination due to low lung volumes and patient body habitus. Possible left basilar infiltrate. PA and lateral views are recommended when the patient is able. Electronically signed by: Austin Gomez MD 02/08/2025 12:27 PM EDT RP Progress Note: A&P Assessment and plan (1) NSTEMI (non-ST elevated myocardial infarction): Status: Acute Assessment and Plan: NSTEMI secondary to significant myocardial stress from his sepsis. He was no cardiac symptoms at this point time. Continue aspirin. Maximize metoprolol to 100 mg b.i.d.. Continue high-intensity statin therapy. 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 Discussed with the patient. He will follow through with them. Also better blood pressure control is recommended. Increase losartan to 100 mg daily. Watch for alcohol withdrawal (2) Hx of aortic valve replacement: Status: Acute Assessment and Plan: Prior aortic valve replacement with increased gradient most likely suggestive of patient prosthesis mismatch. Early deterioration can not be entirely ruled out. Will need close follow-up with his television production assistant. Repeat blood cultures if remained positive may require SYLVAIN to evaluate for valve endocarditis. Will sign of the case today. Thank you for allowing me to partake in his care Time Spent With Patient Time: Total time managing care of this patient today ____ minutes. Progress Note: Quality Stroke Does the patient have a stroke diagnosis?: No Reason for No Anti-thrombotic by Day Two: N/A - Med Ordered Procedures Date of Service Date of Service: 02/09/25
--- NOTE | 2025-02-09 11:10 | HO.PM.IMPN ---
Subjective Subjective Date of Service: 02/09/25 Interval History: no fever no chest pain c/o back pain Review of Systems Review of Systems: Yes all other systems are reviewed and are negative Physical Exam Vital Signs: Vital Signs: Last Vital Signs Temp 97.2 F 02/09/25 07:28 Pulse 78 02/09/25 07:28 Resp 20 02/09/25 07:28 BP 179/84 H 02/09/25 07:28 Pulse Ox 100 02/09/25 07:28 O2 Del Method Room Air 02/09/25 07:28 O2 Flow Rate 3 02/09/25 03:26 BMI result Body Mass Index 37.5 Gen: in no acute distress HEENT: sclera anicteric, moist mucus membranes Neck: supple Lungs: clear to auscultation bilaterally, tachpyneic Heart: regular, tachycardic, no murmurs Abd: soft, non-tender, non-distended Ext: no edema Skin: warm/well-perfused, lumbar wound with serosanguinous drainage Neuro: alert and oriented x3, no focal findings Psych: appropriate affect Objective Data Active Medications Acetaminophen (Acetaminophen 325 Mg Tablet) 650 mg PO Q6H PRN PRN Reason: Pain, Mild 1-3,fever,headache Last Admin: 02/09/25 07:42 Dose: 650 mg Documented By: CODY Albuterol Sulfate (Albuterol Sulfate 90 Mcg 8 Gm Inhaler) 2 puff INHALE Q6H PRN PRN Reason: wheezing Last Admin: 02/09/25 03:26 Dose: 2 puff Documented By: MONICA Comments: Scanner not working Albuterol/Ipratropium (Albuterol/Iprat 2.5/0.5mg 3 Ml Ampul.Neb) 3 ml INHALE RQ4H WHILE AWAKE [facility] Last Admin: 02/09/25 07:22 Dose: 3 ml Documented By: PASCUAL Ascorbic Acid (Ascorbic Acid 500 Mg Tablet) 500 mg PO DAILY [facility] Last Admin: 02/09/25 07:41 Dose: 500 mg Documented By: CODY Atorvastatin Calcium (Atorvastatin Calcium 80 Mg Tablet) 80 mg PO BEDTIME [facility] Last Admin: 02/08/25 20:12 Dose: 80 mg Documented By: AYALA Calcium Carbonate (Calcium Carbonate 750 Mg Tab.Chew) 750 mg PO Q4H PRN PRN Reason: Heartburn Dextrose (Dextrose 50 % 25 Gm/50 Ml Syringe) 25 gm IVPUSH Q15M PRN; Protocol PRN Reason: per Hypoglycemia Standing Ord. Folic Acid (Folic Acid 1 Mg Tablet) 1 mg PO DAILY [facility] Last Admin: 02/09/25 07:43 Dose: 1 mg Documented By: CODY Gabapentin (Gabapentin 300 Mg Capsule) 600 mg PO TID [facility] Last Admin: 02/09/25 07:41 Dose: 600 mg Documented By: CODY Glucose (Glucose Gel 15 Gm Gel..Gram.) 15 gm PO Q15M PRN; Protocol PRN Reason: per Hypoglycemia Standing Ord. Hydromorphone HCl (Hydromorphone Hcl 0.5 Mg/0.5 Ml Syringe) 0.5 mg IVPUSH Q3H PRN; Protocol PRN Reason: Pain, Severe (Pain Scale 7-10) Last Admin: 02/09/25 06:07 Dose: 0.5 mg Documented By: AYLAA Vancomycin HCl 1,000 mg/ (Sodium Chloride) 270 mls @ 270 mls/hr IV Q12H [facility] Last Infusion: 02/09/25 06:03 Dose: Infused Documented By: AYALA Insulin Human Lispro (Insulin Lispro 100 Unit/Ml 3 Ml Vial) 0 unit SUBCUT QIDACHS [facility]; Protocol Last Admin: 02/09/25 07:43 Dose: 2 unit Documented By: CODY Levothyroxine Sodium (Levothyroxine Sodium 50 Mcg Tablet) 50 mcg PO DAILY@0600 [facility] Last Admin: 02/09/25 05:00 Dose: 50 mcg Documented By: AYALA Losartan Potassium (Losartan Potassium 50 Mg Tablet) 50 mg PO DAILY [facility]; Protocol Last Admin: 02/09/25 07:41 Dose: 50 mg Documented By: CODY Magnesium Hydroxide (Milk Of Magnesia 30 Ml Oral.Susp) 30 ml PO DAILY PRN PRN Reason: Constipation Magnesium Oxide (Magnesium Oxide 400 Mg Tablet) 800 mg PO BIDPC [facility] Last Admin: 02/09/25 07:41 Dose: 800 mg Documented By: CODY Melatonin (Melatonin 3 Mg Tablet) 6 mg PO BEDTIME PRN PRN Reason: Insomnia Last Admin: 02/07/25 20:04 Dose: 6 mg Documented By: BRYAN Metoprolol Tartrate (Metoprolol Tartrate 50 Mg Tablet) 50 mg PO BID [facility]; Protocol Last Admin: 02/09/25 07:42 Dose: 50 mg Documented By: CODY Ondansetron HCl (Ondansetron Hcl 4 Mg/2 Ml Vial) 4 mg IVPUSH Q8H PRN PRN Reason: Nausea and Vomiting Pantoprazole Sodium (Pantoprazole Sodium 40 Mg/10 Ml Vial) 40 mg IVPUSH DAILY@0630 [facility] Last Admin: 02/09/25 05:00 Dose: 40 mg Documented By: AYALA Pharmacy Consult (Consult Rx Vancomycin Dosing) 1 each MISCELLANE DAILY PRN PRN Reason: Consult order Senna (Sennosides 8.6 Mg Tablet) 17.2 mg PO BEDTIME [facility] Last Admin: 02/08/25 20:12 Dose: 17.2 mg Documented By: AYALA Sodium Chloride (0.9 % Sodium Chloride Flush 3 Ml Syringe) 3 ml IVFLUSH QSHIFT [facility] Last Admin: 02/09/25 08:24 Dose: Not Given Documented By: CODY Non-Admin Reason: Previously Administered Thiamine HCl (Thiamine Hcl 100 Mg Tablet) 100 mg PO DAILY [facility] Last Admin: 02/09/25 07:43 Dose: 100 mg Documented By: CODY Vitamin D (Cholecalciferol (Vitamin D3) 25 Mcg Tablet) 25 mcg PO DAILY [facility] Last Admin: 02/09/25 07:41 Dose: 25 mcg Documented By: CODY Labs 02/09/25 06:19 02/09/25 06:19 Labs: Laboratory Results - last 24 hr 02/08/25 02/08/25 02/08/25 11:32 15:45 16:02 MCV MCH MCHC RDW Plt Count MPV Absolute Nucleated RBC Nucleated RBC % (auto) Absolute Retic Percent Retic Immature Retic Fraction Retic Hgb Equivalent Anion Gap Estim Creat Clear Calc Estimated GFR POC Glucose 180 H 203 H Random Glucose Calcium Magnesium Iron TIBC % Saturation Unsat Iron Binding Ferritin Lactate Dehydrogenase B-Natriuretic Peptide 683 H Random Vancomycin 14.7 L 02/08/25 02/09/25 02/09/25 20:23 06:19 07:24 MCV 93.7 MCH 30.7 MCHC 32.8 RDW 14.9 Plt Count 214 MPV 9.8 Absolute Nucleated RBC 0.000 Nucleated RBC % (auto) 0.0 Absolute Retic 0.036 Percent Retic 1.5 Immature Retic Fraction 11.7 Retic Hgb Equivalent 22.8 L Anion Gap 12 Estim Creat Clear Calc 109.4 Estimated GFR > 60 POC Glucose 186 H 192 H Random Glucose 172 H Calcium 8.4 Magnesium 1.7 Iron 14 L TIBC 183 L % Saturation 8 L Unsat Iron Binding 169 Ferritin 575 H Lactate Dehydrogenase 302 H B-Natriuretic Peptide Random Vancomycin Microbiology Microbiology Results: Microbiology 02/06/25 22:47 Blood Culture - Final Blood - Venous Enterococcus faecalis 02/06/25 22:28 Blood Culture - Final Blood - Venous Enterococcus faecalis 02/06/25 22:47 Gram Stain - Final Back Routine Culture - Final Enterococcus faecalis Assessment and Plan (1) Osteomyelitis: Status: Acute Plan d3 for 74yo M with hx CAD s/p CABG, aortic stenosis s/p bioprosthetic valve replacement, DM2, COPD/asthma, HTN, BPH, and GIO not on CPAP s/p right L4-5 lumbar decompression 01/23/25 presenting with fever and admitted with sepsis, found to be bacteremic with Enterococcus faecalis sepsis due to Enterococcus faecalis bacteremia with L2-L4 discitis/osteomyelitis/septic arthritis - reviewed with Neurosurgery; fluid collection along surgical incision likely seroma and regardless is spontaneously draining; no operative washout indicated - Wound Care consulted: Cleanse wit ns moist gauze, pat dry. Apply skin prep to periwound, lightly pack with Iodoform cover with Foam dressing or dry gauze and ABD pad. Change daily. Recommend follow up out pt with surgery team. At time of d/c may consider Dreampod AG to pack wound bed to allow for time between dressing changes as patient will not be able to provide self care given location and VNA will not likly be able to see daily. - continue vancomycin 02/06-, piperacillin-tazobactam discontinued 02/06-02/07; ID consulted and will need 6 wk of IV ABX from culture clearance; repeat BCx today and once clear place PICC - TTE 02/07: 1. Technically difficult study despite use of contrast agent 2. Low normal LV ejection fraction 50-55% with mild LVH with pseudonormal filling pattern 3. Moderately dilated right ventricular with preserved contractility 4. Moderately dilated right and left atrium 5. Bioprosthetic aortic valve present with evidence of stenosis with increased gradient, could be related to patient prosthesis mismatch 5. Calcific mitral valve changes noted with possible mitral stenosis 6. Normal measured RV systolic pressure NSTEMI - Cardiology consulted; likely demand ischemia due to sepsis; no anticoagulation indicated but will need outpt ischemic workup to ensure graft patency hypomagnesesmia - repleted CAD - metoprolol tartrate HTN - metoprolol tartrate + losartan; HCTZ held hypothyroidism - continue LT4 excess alcohol intake - prn CIWA; monitor for withdrawal; scoring 0 at this time DM2 - patricio-dose lispro VTE ppx - enoxaparin dispo - PT consult In my clinical judgment, the patient requires continued inpatient hospitalization for the following reasons: IV ABX Total time managing care of this patient today: 40 minutes. Quality Stroke Does the patient have a stroke diagnosis?: No Reason for No Anti-thrombotic by Day Two: N/A - Med Ordered VTE Prior VTE?: No VTE Risk Level:: Medical - moderate - high VTE Device Contraindication: N/A - Device Ordered VTE Drug Contraindication: N/A - Med Ordered
[2025-02-09 11:17] LABS: Glucose, Whole Blood 167 mg/dL (60-115)
[2025-02-09] MEDS: HYDROmorphone HCl 1 MG/ML SYRINGE 0.6 MG IVPUSH ×3 (11:31→21:22)
[2025-02-09] MEDS: Enoxaparin Sodium 40 MG/0.4 ML SYRINGE SUBCUT (11:31)
--- NOTE | 2025-02-09 12:19 | HO.NEURO.PN ---
Neurosurgery Operative Note Date of Service: 02/09/25 Narrative: Postop day 17, L4-5 laminotomy admitted postoperatively with sepsis, bacteremia and wound infection Patient reports ongoing back pain, not happy right now about the amount of pain that he is in. Specifically, pain in the back and shooting down his right leg. He remains on vancomycin 1 g IV q.12. He remains afebrile. His cultures came back as Enterococcus faecalis in not only the wound but the blood cultures. On exam, he is a little bit uncomfortable but able to move around the bed, his strength and sensation are normal in the lower extremities. The skin edges of his wound are well approximated, there is a very small opening at the top which is leaking a small amount of brownish fluid. Case reviewed with Dr. Fox. Again this is something best treated with IV antibiotics for an extended period of time, and he does not think surgery is appropriate as there is no specific collection to drain. He will likely need PICC line for long-term antibiotics. He can be out of bed as tolerated from our standpoint with no restrictions. The wound care team is following. If he is discharged over the weekend, he can follow up with our office in 2-3 weeks.
[2025-02-09 16:28] LABS: Vancomycin Random 14.3 mcg/mL (15-20)
[2025-02-09 16:31] LABS: Glucose, Whole Blood 221 mg/dL (60-115)
[2025-02-09] MEDS: oxyCODONE HCl Immed Release 5 MG TABLET 10 MG PO (18:15)
[2025-02-09] MEDS: vancomycin HCL 1,250 MG in 0.9 % Sodium Chloride 250 ML 166.67 MG IV (18:16)
[2025-02-09 20:42] LABS: Glucose, Whole Blood 186 mg/dL (60-115)
[2025-02-09] MEDS: Sennosides 8.6 MG TABLET 17.2 MG PO (21:22)
[2025-02-09] MEDS: Atorvastatin Calcium 80 MG TABLET PO (21:22)
[2025-02-10] VITALS (12 sets, daily range): BP systolic 137–174; BP diastolic 70–91; PULSE 78–98; RESP 16–20; TEMP 36.7–37.1; O2SAT 90–100
[2025-02-10] MEDS: HYDROmorphone HCl 1 MG/ML SYRINGE 0.6 MG IVPUSH ×5 (01:07→21:25)
[2025-02-10] MEDS: oxyCODONE HCl Immed Release 5 MG TABLET 10 MG PO (03:57)
[2025-02-10] MEDS: Pantoprazole Sodium 40 MG/10 ML VIAL IVPUSH (05:19)
[2025-02-10] MEDS: Levothyroxine Sodium 50 MCG TABLET PO (05:19)
[2025-02-10] MEDS: vancomycin HCL 1,250 MG in 0.9 % Sodium Chloride 250 ML 166.67 MG IV (05:19)
[2025-02-10 06:24] LABS: Hematocrit 24.3 % (42.0-52.0); Mean Corpuscular HGB Conc 32.9 g/dl (31.0-36.0); Mean Corpuscular Hemoglobin 30.7 pg (27.0-33.0); Mean Corpuscular Volume 93.1 fL (80.0-98.0); Mean Platelet Volume 9.8 fL (9.4-12.4); Platelet Count 258 X10*3/uL (160-400); Red Blood Count 2.61 X10*6/uL (4.60-5.80); Red Cell Distribution Width 15.2 % (11.0-16.0); White Blood Count 7.4 X10*3/uL (4.8-10.8)
[2025-02-10 06:42] LABS: Anion Gap 12 (12-20); Blood Urea Nitrogen 9 mg/dL (9-16); Calcium 8.2 mg/dL (8.4-10.2); Carbon Dioxide 24 mmol/L (22-29); Chloride 99 mmol/L (96-108); Creatinine Clr Calc Pharmacy 102.4; Estimated Glomerular Filt Rate > 60; Glucose Random 195 mg/dL (60-115); Magnesium 1.7 mg/dL (1.6-2.6); Potassium 4.3 mmol/L (3.3-5.1); Sodium 131 mmol/L (135-145)
[2025-02-10 07:17] LABS: Folate 14.2 ng/mL (> or = 4.0); Vitamin B12 649 pg/mL (200-900)
[2025-02-10] MEDS: Albuterol/Iprat 2.5/0.5MG 3 ML AMPUL.NEB INHALE ×3 (07:33→19:32)
[2025-02-10 07:38] LABS: Glucose, Whole Blood 182 mg/dL (60-115)
[2025-02-10] MEDS: Gabapentin 300 MG CAPSULE 600 MG PO ×3 (07:51→21:16)
[2025-02-10] MEDS: Folic Acid 1 MG TABLET PO (07:52)
[2025-02-10] MEDS: Losartan Potassium 50 MG TABLET PO (07:52)
[2025-02-10] MEDS: Cholecalciferol (Vitamin D3) 25 MCG TABLET PO (07:52)
[2025-02-10] MEDS: Metoprolol Tartrate 50 MG TABLET PO ×2 (07:52→21:18)
[2025-02-10] MEDS: Ascorbic Acid 500 MG TABLET PO (07:53)
[2025-02-10] MEDS: Thiamine HCL 100 MG TABLET PO (07:53)
[2025-02-10] MEDS: Magnesium Oxide 400 MG TABLET 800 MG PO ×2 (07:53→16:19)
[2025-02-10] MEDS: Insulin Lispro 100 UNIT/ML 3 ML VIAL SUBCUT ×4 (08:03→21:19)
[2025-02-10] MEDS: 0.9 % Sodium Chloride Flush 3 ML SYRINGE IVFLUSH ×3 (08:03→21:11)
--- NOTE | 2025-02-10 10:02 | HO.PM.IMPN ---
Subjective Subjective Date of Service: 02/10/25 Interval History: no fever back pain improved no chest pain Review of Systems Review of Systems: Yes all other systems are reviewed and are negative Physical Exam Vital Signs: Vital Signs: Last Vital Signs Temp 98.6 F 02/10/25 07:28 Pulse 84 02/10/25 07:35 Resp 20 02/10/25 07:35 BP 155/77 H 02/10/25 07:28 Pulse Ox 100 02/10/25 07:28 O2 Del Method Nasal Cannula 02/10/25 07:28 O2 Flow Rate 1 02/10/25 07:28 BMI result Body Mass Index 37.5 Gen: in no acute distress HEENT: sclera anicteric, moist mucus membranes Neck: supple Lungs: clear to auscultation bilaterally, tachpyneic Heart: regular, tachycardic, no murmurs Abd: soft, non-tender, non-distended Ext: no edema Skin: warm/well-perfused, lumbar wound without surrounding erythema, no purulence Neuro: alert and oriented x3, no focal findings Psych: appropriate affect Objective Data Active Medications Acetaminophen (Acetaminophen 325 Mg Tablet) 650 mg PO Q6H PRN PRN Reason: Pain, Mild 1-3,fever,headache Last Admin: 02/09/25 07:42 Dose: 650 mg Documented By: CODY Albuterol Sulfate (Albuterol Sulfate 90 Mcg 8 Gm Inhaler) 2 puff INHALE Q6H PRN PRN Reason: wheezing Last Admin: 02/09/25 03:26 Dose: 2 puff Documented By: MONICA Comments: Scanner not working Albuterol/Ipratropium (Albuterol/Iprat 2.5/0.5mg 3 Ml Ampul.Neb) 3 ml INHALE RQ4H WHILE AWAKE [facility] Last Admin: 02/10/25 07:33 Dose: 3 ml Documented By: GUILLERMO Ascorbic Acid (Ascorbic Acid 500 Mg Tablet) 500 mg PO DAILY [facility] Last Admin: 02/10/25 07:53 Dose: 500 mg Documented By: MARCELO Atorvastatin Calcium (Atorvastatin Calcium 80 Mg Tablet) 80 mg PO BEDTIME [facility] Last Admin: 02/09/25 21:22 Dose: 80 mg Documented By: AYALA Calcium Carbonate (Calcium Carbonate 750 Mg Tab.Chew) 750 mg PO Q4H PRN PRN Reason: Heartburn Dextrose (Dextrose 50 % 25 Gm/50 Ml Syringe) 25 gm IVPUSH Q15M PRN; Protocol PRN Reason: per Hypoglycemia Standing Ord. Enoxaparin Sodium (Enoxaparin Sodium 40 Mg/0.4 Ml Syringe) 40 mg SUBCUT Q24H [facility] Last Admin: 02/09/25 11:31 Dose: 40 mg Documented By: FOSTEKR Folic Acid (Folic Acid 1 Mg Tablet) 1 mg PO DAILY [facility] Last Admin: 02/10/25 07:52 Dose: 1 mg Documented By: MARCELO Gabapentin (Gabapentin 300 Mg Capsule) 600 mg PO TID [facility] Last Admin: 02/10/25 07:51 Dose: 600 mg Documented By: AMRCELO Glucose (Glucose Gel 15 Gm Gel..Gram.) 15 gm PO Q15M PRN; Protocol PRN Reason: per Hypoglycemia Standing Ord. Hydromorphone HCl (Hydromorphone Hcl 1 Mg/Ml Syringe) 0.6 mg IVPUSH Q3H PRN; Protocol PRN Reason: Pain, Severe (Pain Scale 7-10) Last Admin: 02/10/25 07:53 Dose: 0.6 mg Documented By: MARCELO Vancomycin HCl 1,250 mg/ (Sodium Chloride) 250 mls @ 166.667 mls/hr IV Q12H [facility] Last Infusion: 02/10/25 07:15 Dose: Infused Documented By: AYALA Insulin Human Lispro (Insulin Lispro 100 Unit/Ml 3 Ml Vial) 0 unit SUBCUT QIDACHS [facility]; Protocol Last Admin: 02/10/25 08:03 Dose: 2 unit Documented By: MARCELO Levothyroxine Sodium (Levothyroxine Sodium 50 Mcg Tablet) 50 mcg PO DAILY@0600 [facility] Last Admin: 02/10/25 05:19 Dose: 50 mcg Documented By: AYALA Losartan Potassium (Losartan Potassium 50 Mg Tablet) 50 mg PO DAILY [facility]; Protocol Last Admin: 02/10/25 07:52 Dose: 50 mg Documented By: MARCELO Magnesium Hydroxide (Milk Of Magnesia 30 Ml Oral.Susp) 30 ml PO DAILY PRN PRN Reason: Constipation Magnesium Oxide (Magnesium Oxide 400 Mg Tablet) 800 mg PO BIDPC [facility] Last Admin: 02/10/25 07:53 Dose: 800 mg Documented By: MARCELO Melatonin (Melatonin 3 Mg Tablet) 6 mg PO BEDTIME PRN PRN Reason: Insomnia Last Admin: 02/07/25 20:04 Dose: 6 mg Documented By: BRYAN Metoprolol Tartrate (Metoprolol Tartrate 50 Mg Tablet) 50 mg PO BID [facility]; Protocol Last Admin: 02/10/25 07:52 Dose: 50 mg Documented By: MARCELO Ondansetron HCl (Ondansetron Hcl 4 Mg/2 Ml Vial) 4 mg IVPUSH Q8H PRN PRN Reason: Nausea and Vomiting Oxycodone HCl (Oxycodone Hcl Immed Release 5 Mg Tablet) 10 mg PO Q6H PRN PRN Reason: Pain, Moderate(Pain Scale 4-6) Last Admin: 02/10/25 03:57 Dose: 10 mg Documented By: AYALA Pharmacy Consult (Consult Rx Vancomycin Dosing) 1 each MISCELLANE DAILY PRN PRN Reason: Consult order Senna (Sennosides 8.6 Mg Tablet) 17.2 mg PO BEDTIME [facility] Last Admin: 02/09/25 21:22 Dose: 17.2 mg Documented By: AYALA Sodium Chloride (0.9 % Sodium Chloride Flush 3 Ml Syringe) 3 ml IVFLUSH QSHIFT [facility] Last Admin: 02/10/25 08:03 Dose: 3 ml Documented By: MARCELO Thiamine HCl (Thiamine Hcl 100 Mg Tablet) 100 mg PO DAILY [facility] Last Admin: 02/10/25 07:53 Dose: 100 mg Documented By: MARCELO Vitamin D (Cholecalciferol (Vitamin D3) 25 Mcg Tablet) 25 mcg PO DAILY [facility] Last Admin: 02/10/25 07:52 Dose: 25 mcg Documented By: MARCELO Labs 02/10/25 05:37 02/10/25 05:37 Labs: Laboratory Results - last 24 hr 02/09/25 02/09/25 02/09/25 11:14 15:57 16:23 MCV MCH MCHC RDW Plt Count MPV Absolute Nucleated RBC Nucleated RBC % (auto) Anion Gap Estim Creat Clear Calc Estimated GFR POC Glucose 167 H 221 H Random Glucose Calcium Magnesium Vitamin B12 Folate Random Vancomycin 14.3 L 02/09/25 02/10/25 02/10/25 20:30 05:37 07:33 MCV 93.1 MCH 30.7 MCHC 32.9 RDW 15.2 Plt Count 258 MPV 9.8 Absolute Nucleated RBC 0.000 Nucleated RBC % (auto) 0.0 Anion Gap 12 Estim Creat Clear Calc 102.4 Estimated GFR > 60 POC Glucose 186 H 182 H Random Glucose 195 H Calcium 8.2 L Magnesium 1.7 Vitamin B12 649 Folate 14.2 Random Vancomycin Microbiology Microbiology Results: Microbiology 02/09/25 06:18 Blood Culture - Preliminary Blood - Venous No growth after 24 hours. 02/09/25 06:19 Blood Culture - Preliminary Blood - Venous No growth after 24 hours. 02/06/25 22:47 Blood Culture - Final Blood - Venous Enterococcus faecalis 02/06/25 22:28 Blood Culture - Final Blood - Venous Enterococcus faecalis 02/06/25 22:47 Gram Stain - Final Back Routine Culture - Final Enterococcus faecalis Assessment and Plan (1) Osteomyelitis: Status: Acute Plan d3 for 74yo M with hx CAD s/p CABG, aortic stenosis s/p bioprosthetic valve replacement, DM2, COPD/asthma, HTN, BPH, and GIO not on CPAP s/p right L4-5 lumbar decompression 01/23/25 presenting with fever and admitted with sepsis, found to be bacteremic with Enterococcus faecalis sepsis due to Enterococcus faecalis bacteremia with L2-L4 discitis/osteomyelitis/septic arthritis - reviewed with Neurosurgery; fluid collection along surgical incision likely seroma and regardless is spontaneously draining; no operative washout indicated - Wound Care consulted: Cleanse wit ns moist gauze, pat dry. Apply skin prep to periwound, lightly pack with Iodoform cover with Foam dressing or dry gauze and ABD pad. Change daily. Recommend follow up out pt with surgery team. At time of d/c may consider duraSmartlingber AG to pack wound bed to allow for time between dressing changes as patient will not be able to provide self care given location and VNA will not likly be able to see daily. - continue vancomycin 02/06-, piperacillin-tazobactam discontinued 02/06-02/07; ID consulted and will need 6 wk of IV ABX from culture clearance; repeated BCx 02/[address] PICC to complete home infusion - TTE 02/07: 1. Technically difficult study despite use of contrast agent 2. Low normal LV ejection fraction 50-55% with mild LVH with pseudonormal filling pattern 3. Moderately dilated right ventricular with preserved contractility 4. Moderately dilated right and left atrium 5. Bioprosthetic aortic valve present with evidence of stenosis with increased gradient, could be related to patient prosthesis mismatch 5. Calcific mitral valve changes noted with possible mitral stenosis 6. Normal measured RV systolic pressure NSTEMI - Cardiology consulted; likely demand ischemia due to sepsis; no anticoagulation indicated but will need outpt ischemic workup to ensure graft patency anemia, normocytic - likely due to iron defiency and acute inflammation; replete Fe once bacterial infection under control hypomagnesesmia - repleted CAD - metoprolol tartrate HTN - metoprolol tartrate + losartan; HCTZ held hypothyroidism - continue LT4 excess alcohol intake - prn CIWA; monitor for withdrawal; scoring 0 at this time DM2 - patricio-dose lispro VTE ppx - enoxaparin dispo - PT consulted: AIR recommended In my clinical judgment, the patient requires continued inpatient hospitalization for the following reasons: IV ABX Total time managing care of this patient today: 40 minutes. Quality Stroke Does the patient have a stroke diagnosis?: No Reason for No Anti-thrombotic by Day Two: N/A - Med Ordered VTE Prior VTE?: No VTE Risk Level:: Medical - moderate - high VTE Device Contraindication: N/A - Device Ordered VTE Drug Contraindication: N/A - Med Ordered
[2025-02-10 12:04] LABS: Glucose, Whole Blood 182 mg/dL (60-115)
[2025-02-10] MEDS: Lidocaine 4 % Patch ADH..PATCH 1 PATCH TRANSDERMA (12:32)
[2025-02-10] MEDS: DAPTOmycin 700 MG in 0.9 % Sodium Chloride 50 ML 100 MG IV (12:33)
[2025-02-10] MEDS: Acetaminophen 325 MG TABLET 650 MG PO (12:38)
[2025-02-10] MEDS: Enoxaparin Sodium 40 MG/0.4 ML SYRINGE SUBCUT (13:01)
[2025-02-10 15:55] LABS: Glucose, Whole Blood 221 mg/dL (60-115)
[2025-02-10] MEDS: Acetaminophen 1,000 MG/100 ML PIGGYBACK 400 MG IV ×2 (16:11→21:10)
[2025-02-10 21:08] LABS: Glucose, Whole Blood 215 mg/dL (60-115)
[2025-02-10] MEDS: Sennosides 8.6 MG TABLET 17.2 MG PO (21:15)
[2025-02-10] MEDS: Tamsulosin HCL 0.4 MG CAPSULE PO (21:18)
[2025-02-11] VITALS (11 sets, daily range): BP systolic 167–186; BP diastolic 75–86; PULSE 69–129; RESP 18–20; TEMP 36.3–37.1; O2SAT 93–100
[2025-02-11] MEDS: HYDROmorphone HCl 1 MG/ML SYRINGE 0.6 MG IVPUSH ×5 (01:16→21:18)
[2025-02-11] MEDS: Acetaminophen 1,000 MG/100 ML PIGGYBACK 400 MG IV (02:10)
[2025-02-11] MEDS: Levothyroxine Sodium 50 MCG TABLET PO (05:56)
[2025-02-11] MEDS: Albuterol/Iprat 2.5/0.5MG 3 ML AMPUL.NEB INHALE ×4 (07:19→19:31)
[2025-02-11] MEDS: Magnesium Oxide 400 MG TABLET 800 MG PO ×2 (07:59→16:29)
[2025-02-11] MEDS: Folic Acid 1 MG TABLET PO (07:59)
[2025-02-11] MEDS: Metoprolol Tartrate 50 MG TABLET PO ×2 (07:59→21:21)
[2025-02-11] MEDS: Thiamine HCL 100 MG TABLET PO (07:59)
[2025-02-11] MEDS: Gabapentin 300 MG CAPSULE 600 MG PO ×3 (07:59→21:21)
[2025-02-11] MEDS: Cholecalciferol (Vitamin D3) 25 MCG TABLET PO (08:00)
[2025-02-11] MEDS: 0.9 % Sodium Chloride Flush 3 ML SYRINGE IVFLUSH ×2 (08:00→15:08)
[2025-02-11] MEDS: Losartan Potassium 50 MG TABLET PO (08:00)
[2025-02-11] MEDS: Lidocaine 4 % Patch ADH..PATCH 1 PATCH TRANSDERMA (08:02)
[2025-02-11] MEDS: polyethylene glycoL 3350 17 GM POWD.PACK PO (08:40)
[2025-02-11] MEDS: Insulin Lispro 100 UNIT/ML 3 ML VIAL SUBCUT ×4 (08:40→21:25)
[2025-02-11] MEDS: Ascorbic Acid 500 MG TABLET PO (08:41)
[2025-02-11 10:40] LABS: Glucose, Whole Blood 180 mg/dL (60-115)
[2025-02-11 11:20] LABS: Glucose, Whole Blood 175 mg/dL (60-115)
--- NOTE | 2025-02-11 11:34 | HO.PM.IMPN ---
Subjective Subjective Date of Service: 02/11/25 Interval History: c/o back pain no fever Review of Systems Review of Systems: Yes all other systems are reviewed and are negative Physical Exam Vital Signs: Vital Signs: Last Vital Signs Temp 98.7 F 02/11/25 11:28 Pulse 71 02/11/25 11:31 Resp 18 02/11/25 11:31 BP 175/86 H 02/11/25 11:28 Pulse Ox 94 02/11/25 11:28 O2 Del Method Room Air 02/11/25 11:28 O2 Flow Rate 1 02/10/25 07:28 BMI result Body Mass Index 37.5 Gen: in no acute distress HEENT: sclera anicteric, moist mucus membranes Neck: supple Lungs: clear to auscultation bilaterally, tachpyneic Heart: regular, tachycardic, no murmurs Abd: soft, non-tender, non-distended Ext: no edema Skin: warm/well-perfused, lumbar wound without surrounding erythema, no purulence Neuro: alert and oriented x3, no focal findings Psych: appropriate affect Objective Data Active Medications Albuterol Sulfate (Albuterol Sulfate 90 Mcg 8 Gm Inhaler) 2 puff INHALE Q6H PRN PRN Reason: wheezing Last Admin: 02/09/25 03:26 Dose: 2 puff Documented By: MONICA Comments: Scanner not working Albuterol/Ipratropium (Albuterol/Iprat 2.5/0.5mg 3 Ml Ampul.Neb) 3 ml INHALE RQ4H WHILE AWAKE [facility] Last Admin: 02/11/25 11:30 Dose: 3 ml Documented By: GUILLERMO Ascorbic Acid (Ascorbic Acid 500 Mg Tablet) 500 mg PO DAILY [facility] Last Admin: 02/11/25 08:41 Dose: 500 mg Documented By: MARCELO Atorvastatin Calcium (Atorvastatin Calcium 80 Mg Tablet) 80 mg PO BEDTIME [facility] Last Admin: 02/09/25 21:22 Dose: 80 mg Documented By: AYALA Calcium Carbonate (Calcium Carbonate 750 Mg Tab.Chew) 750 mg PO Q4H PRN PRN Reason: Heartburn Dextrose (Dextrose 50 % 25 Gm/50 Ml Syringe) 25 gm IVPUSH Q15M PRN; Protocol PRN Reason: per Hypoglycemia Standing Ord. Enoxaparin Sodium (Enoxaparin Sodium 40 Mg/0.4 Ml Syringe) 40 mg SUBCUT Q24H [facility] Last Admin: 02/10/25 13:01 Dose: 40 mg Documented By: MARCELO Folic Acid (Folic Acid 1 Mg Tablet) 1 mg PO DAILY [facility] Last Admin: 02/11/25 07:59 Dose: 1 mg Documented By: MARCELO Gabapentin (Gabapentin 300 Mg Capsule) 600 mg PO TID [facility] Last Admin: 02/11/25 07:59 Dose: 600 mg Documented By: MARCELO Glucose (Glucose Gel 15 Gm Gel..Gram.) 15 gm PO Q15M PRN; Protocol PRN Reason: per Hypoglycemia Standing Ord. Hydromorphone HCl (Hydromorphone Hcl 1 Mg/Ml Syringe) 0.6 mg IVPUSH Q3H PRN; Protocol PRN Reason: Pain, Severe (Pain Scale 7-10) Last Admin: 02/11/25 10:22 Dose: 0.6 mg Documented By: MARCELO Daptomycin 700 mg/ Sodium (Chloride) 64 mls @ 100 mls/hr IV Q24H [facility] Last Infusion: 02/10/25 13:12 Dose: Infused Documented By: MARCELO Acetaminophen (Ofirmev) 1,000 mg in 100 mls @ 400 mls/hr IV Q6H [facility] Last Admin: 02/11/25 08:21 Dose: Not Given Documented By: MARCELO Non-Admin Reason: Physician Held Med Insulin Human Lispro (Insulin Lispro 100 Unit/Ml 3 Ml Vial) 0 unit SUBCUT QIDACHS [facility]; Protocol Last Admin: 02/11/25 08:40 Dose: 2 unit Documented By: MARCELO Levothyroxine Sodium (Levothyroxine Sodium 50 Mcg Tablet) 50 mcg PO DAILY@0600 [facility] Last Admin: 02/11/25 05:56 Dose: 50 mcg Documented By: ANDERM Lidocaine (Lidocaine 4 % Patch Adh..Patch) 1 patch TRANSDERMA DAILY [facility]; Protocol Last Admin: 02/11/25 08:02 Dose: 1 patch Documented By: MARCELO Losartan Potassium (Losartan Potassium 50 Mg Tablet) 50 mg PO DAILY [facility]; Protocol Last Admin: 02/11/25 08:00 Dose: 50 mg Documented By: MARCELO Magnesium Hydroxide (Milk Of Magnesia 30 Ml Oral.Susp) 30 ml PO DAILY PRN PRN Reason: Constipation Magnesium Oxide (Magnesium Oxide 400 Mg Tablet) 800 mg PO BIDPC [facility] Last Admin: 02/11/25 07:59 Dose: 800 mg Documented By: MARCELO Melatonin (Melatonin 3 Mg Tablet) 6 mg PO BEDTIME PRN PRN Reason: Insomnia Last Admin: 02/07/25 20:04 Dose: 6 mg Documented By: USMAN-LACHELLEJ Metoprolol Tartrate (Metoprolol Tartrate 50 Mg Tablet) 50 mg PO BID [facility]; Protocol Last Admin: 02/11/25 07:59 Dose: 50 mg Documented By: MARCELO Ondansetron HCl (Ondansetron Hcl 4 Mg/2 Ml Vial) 4 mg IVPUSH Q8H PRN PRN Reason: Nausea and Vomiting Oxycodone HCl (Oxycodone Hcl Immed Release 5 Mg Tablet) 10 mg PO Q6H PRN PRN Reason: Pain, Moderate(Pain Scale 4-6) Last Admin: 02/10/25 03:57 Dose: 10 mg Documented By: AYALA Polyethylene Glycol (Polyethylene Glycol 3350 17 Gm Powd.Pack) 17 gm PO DAILY [facility] Last Admin: 02/11/25 08:40 Dose: 17 gm Documented By: MARCELO Senna (Sennosides 8.6 Mg Tablet) 17.2 mg PO BEDTIME [facility] Last Admin: 02/10/25 21:15 Dose: 17.2 mg Documented By: RADHA Sodium Chloride (0.9 % Sodium Chloride Flush 3 Ml Syringe) 3 [facility] Last Admin: 02/11/25 08:00 Dose: 3 ml Documented By: MARCELO Tamsulosin HCl (Tamsulosin Hcl 0.4 Mg Capsule) 0.4 mg PO BEDTIME [facility] Last Admin: 02/10/25 21:18 Dose: 0.4 mg Documented By: ANDNOEL Thiamine HCl (Thiamine Hcl 100 Mg Tablet) 100 mg PO DAILY [facility] Last Admin: 02/11/25 07:59 Dose: 100 mg Documented By: MARCELO Vitamin D (Cholecalciferol (Vitamin D3) 25 Mcg Tablet) 25 mcg PO DAILY [facility] Last Admin: 02/11/25 08:00 Dose: 25 mcg Documented By: MARCELO Labs 02/10/25 05:37 02/10/25 05:37 Labs: Laboratory Results - last 24 hr 02/10/25 02/10/25 02/10/25 11:43 15:50 21:02 POC Glucose 182 H 221 H 215 H 02/11/25 02/11/25 07:33 11:15 POC Glucose 180 H 175 H Microbiology Microbiology Results: Microbiology 02/09/25 06:18 Blood Culture - Preliminary Blood - Venous No growth after 48 hours. 02/09/25 06:19 Blood Culture - Preliminary Blood - Venous No growth after 48 hours. Assessment and Plan (1) Osteomyelitis: Status: Acute Plan d5 for 74yo M with hx CAD s/p CABG, aortic stenosis s/p bioprosthetic valve replacement, DM2, COPD/asthma, HTN, BPH, and IGO not on CPAP s/p right L4-5 lumbar decompression 01/23/25 presenting with fever and admitted with sepsis, found to be bacteremic with Enterococcus faecalis sepsis due to Enterococcus faecalis bacteremia with L2-L4 discitis/osteomyelitis/septic arthritis - reviewed with Neurosurgery; fluid collection along surgical incision likely seroma and regardless is spontaneously draining; no operative washout indicated - Wound Care consulted: Cleanse wit ns moist gauze, pat dry. Apply skin prep to periwound, lightly pack with Iodoform cover with Foam dressing or dry gauze and ABD pad. Change daily. Recommend follow up out pt with surgery team. At time of d/c may consider duraInbiomotionber AG to pack wound bed to allow for time between dressing changes as patient will not be able to provide self care given location and VNA will not likly be able to see daily. - vancomycin 02/06-02/10, piperacillin-tazobactam 02/06-02/07; ID consulted and will need 6 wk of IV daptomycin from culture clearance; BCx from 02/09 negative so end date of therapy will be 03/23 - TTE 02/07: 1. Technically difficult study despite use of contrast agent 2. Low normal LV ejection fraction 50-55% with mild LVH with pseudonormal filling pattern 3. Moderately dilated right ventricular with preserved contractility 4. Moderately dilated right and left atrium 5. Bioprosthetic aortic valve present with evidence of stenosis with increased gradient, could be related to patient prosthesis mismatch 5. Calcific mitral valve changes noted with possible mitral stenosis 6. Normal measured RV systolic pressure - pain contrl with gabapentin, APAP, tramadol, and IV hydromorphone NSTEMI - Cardiology consulted; likely demand ischemia due to sepsis; no anticoagulation indicated but will need outpt ischemic workup to ensure graft patency anemia, normocytic - likely due to iron defiency and acute inflammation; replete Fe once bacterial infection under control hypomagnesesmia - repleted CAD - metoprolol tartrate HTN - metoprolol tartrate + losartan; resume HCTZ hypothyroidism - continue LT4 excess alcohol intake - prn CIWA; monitor for withdrawal; scoring 0 at this time DM2 - patricio-dose lispro; check A1c VTE ppx - enoxaparin dispo - PT consulted: AIR recommended In my clinical judgment, the patient requires continued inpatient hospitalization for the following reasons: IV ABX Total time managing care of this patient today: 40 minutes. Quality Stroke Does the patient have a stroke diagnosis?: No Reason for No Anti-thrombotic by Day Two: N/A - Med Ordered VTE Prior VTE?: No VTE Risk Level:: Medical - moderate - high VTE Device Contraindication: N/A - Device Ordered VTE Drug Contraindication: N/A - Med Ordered
[2025-02-11] MEDS: traMADoL HCL 50 MG TABLET 100 MG PO (12:17)
[2025-02-11] MEDS: Enoxaparin Sodium 40 MG/0.4 ML SYRINGE SUBCUT (12:21)
[2025-02-11] MEDS: DAPTOmycin 700 MG in 0.9 % Sodium Chloride 50 ML 100 MG IV (12:52)
[2025-02-11] MEDS: HYDROmorphone HCl 1 MG/ML SYRINGE 0.4 MG IVPUSH (13:38)
[2025-02-11 15:57] LABS: Glucose, Whole Blood 212 mg/dL (60-115)
[2025-02-11] MEDS: hydroCHLOROthiazide 12.5 MG TABLET PO (16:27)
[2025-02-11] MEDS: Milk of Magnesia 30 ML ORAL.SUSP PO (16:28)
--- NOTE | 2025-02-11 18:12 | PC.NURSE ---
patient with 10 beat run of VTACH, then one normal beat followed by a couplet, then back to nst. patient stable, denies any cp or dizziness. md notified, electrolytes to be ordered
[2025-02-11 19:57] LABS: Anion Gap 15 (12-20); Blood Urea Nitrogen 10 mg/dL (9-16); Calcium 9.4 mg/dL (8.4-10.2); Carbon Dioxide 28 mmol/L (22-29); Chloride 94 mmol/L (96-108); Creatinine Clr Calc Pharmacy 98.6; Estimated Glomerular Filt Rate > 60; Glucose Random 205 mg/dL (60-115); Magnesium 1.6 mg/dL (1.6-2.6); Potassium 4.9 mmol/L (3.3-5.1); Sodium 132 mmol/L (135-145)
[2025-02-11] MEDS: Sennosides 8.6 MG TABLET 17.2 MG PO (21:21)
[2025-02-11] MEDS: Docusate Sodium 100 MG CAPSULE PO (21:21)
[2025-02-11] MEDS: Tamsulosin HCL 0.4 MG CAPSULE PO (21:21)
[2025-02-11 21:23] LABS: Glucose, Whole Blood 218 mg/dL (60-115)
[2025-02-12] VITALS (12 sets, daily range): BP systolic 118–194; BP diastolic 63–88; PULSE 72–119; RESP 18–20; TEMP 36.8–37.7; O2SAT 90–99
[2025-02-12] MEDS: HYDROmorphone HCl 1 MG/ML SYRINGE 0.6 MG IVPUSH ×5 (01:43→22:52)
[2025-02-12] MEDS: Levothyroxine Sodium 50 MCG TABLET PO (06:21)
[2025-02-12] MEDS: guaiFENesin DM 100/10/5 ML 5 ML SYRUP PO ×2 (06:33→12:16)
[2025-02-12 07:11] LABS: Hematocrit 25.2 % (42.0-52.0); Hemoglobin 8.5 g/dl (14.0-18.0); Mean Corpuscular HGB Conc 33.7 g/dl (31.0-36.0); Mean Platelet Volume 9.6 fL (9.4-12.4); Platelet Count 452 X10*3/uL (160-400); Red Blood Count 2.74 X10*6/uL (4.60-5.80); Red Cell Distribution Width 14.9 % (11.0-16.0); White Blood Count 10.9 X10*3/uL (4.8-10.8)
[2025-02-12 07:30] LABS: Anion Gap 15 (12-20); Blood Urea Nitrogen 11 mg/dL (9-16); C Reactive Protein 11.15 mg/dL (< or = 0.50); Calcium 9.3 mg/dL (8.4-10.2); Carbon Dioxide 29 mmol/L (22-29); Chloride 91 mmol/L (96-108); Creatinine Clr Calc Pharmacy 102.4; Estimated Average Glucose 137 mg/dL; Estimated Glomerular Filt Rate > 60; Glucose Random 200 mg/dL (60-115); Hemoglobin A1C 103.6199 umol/L; Hemoglobin A1c % 6.4 % (<6.0); Potassium 4.6 mmol/L (3.3-5.1); Sodium 130 mmol/L (135-145); Total Hemoglobin (HGBA1C) 2246.5531 umol/L
[2025-02-12 07:43] LABS: Magnesium 1.6 mg/dL (1.6-2.6)
[2025-02-12] MEDS: Acetaminophen 325 MG TABLET 975 MG PO (07:43)
[2025-02-12] MEDS: Gabapentin 300 MG CAPSULE 600 MG PO ×3 (07:44→22:14)
[2025-02-12] MEDS: Docusate Sodium 100 MG CAPSULE PO ×2 (07:47→22:22)
[2025-02-12] MEDS: Cholecalciferol (Vitamin D3) 25 MCG TABLET PO (07:48)
[2025-02-12] MEDS: hydroCHLOROthiazide 12.5 MG TABLET PO (07:48)
[2025-02-12] MEDS: Metoprolol Tartrate 50 MG TABLET PO ×2 (07:48→22:19)
[2025-02-12] MEDS: Thiamine HCL 100 MG TABLET PO (07:48)
[2025-02-12] MEDS: Ascorbic Acid 500 MG TABLET PO (07:49)
[2025-02-12] MEDS: Folic Acid 1 MG TABLET PO (07:49)
[2025-02-12] MEDS: Losartan Potassium 50 MG TABLET PO (07:49)
[2025-02-12] MEDS: Magnesium Oxide 400 MG TABLET 800 MG PO ×2 (07:49→17:46)
[2025-02-12] MEDS: Lidocaine 4 % Patch ADH..PATCH 1 PATCH TRANSDERMA (07:49)
[2025-02-12] MEDS: polyethylene glycoL 3350 17 GM POWD.PACK PO (07:49)
[2025-02-12 07:54] LABS: Erythrocyte Sedimentation Rate 111 MM/HR (0-15)
[2025-02-12] MEDS: 0.9 % Sodium Chloride Flush 3 ML SYRINGE IVFLUSH ×3 (07:59→22:23)
[2025-02-12 08:13] LABS: B Type Natriuretic Peptide 512 pg/mL (<100)
[2025-02-12 08:14] LABS: Glucose, Whole Blood 197 mg/dL (60-115)
[2025-02-12] MEDS: Albuterol/Iprat 2.5/0.5MG 3 ML AMPUL.NEB INHALE ×3 (08:21→18:54)
[2025-02-12] MEDS: Insulin Lispro 100 UNIT/ML 3 ML VIAL SUBCUT ×4 (09:03→22:22)
--- NOTE | 2025-02-12 09:26 | P.PNIM_ITS ---
Subjective Subjective Date of Service: 02/12/25 Interval History: c/o ongoing lumbar and paralumbar pain radiating down legs no fever had short run of VT last night, 10 beats Review of Systems Review of Systems: Yes all other systems are reviewed and are negative Physical Exam 2 Vital Signs: Vital Signs: Last Vital Signs Temp 98.2 F 02/12/25 07:18 Pulse 72 02/12/25 08:24 Resp 20 02/12/25 08:24 BP 130/70 02/12/25 07:18 Pulse Ox 96 02/12/25 07:18 O2 Del Method Nasal Cannula 02/12/25 07:18 O2 Flow Rate 2 02/12/25 07:18 BMI result Body Mass Index 37.5 Gen: in no acute distress HEENT: sclera anicteric, moist mucus membranes Neck: supple Lungs: diminished Heart: regular, tachycardic, no murmurs Abd: soft, nontender, non-distended Ext: 1+ pitting bilateral leg edema Skin: warm/well-perfused, lumbar wound without surrounding erythema, no purulence but draining serosanguinous liquid Neuro: alert and oriented x3, no focal findings Psych: appropriate affect Objective Data Active Medications Acetaminophen (Acetaminophen 325 Mg Tablet) 975 mg PO Q6H PRN PRN Reason: Pain, Mild (Pain Scale 1-3) Last Admin: 02/12/25 07:43 Dose: 975 mg Documented By: CAILIN Albuterol Sulfate (Albuterol Sulfate 90 Mcg 8 Gm Inhaler) 2 puff INHALE Q6H PRN PRN Reason: wheezing Last Admin: 02/09/25 03:26 Dose: 2 puff Documented By: MONICA Comments: Scanner not working Albuterol/Ipratropium (Albuterol/Iprat 2.5/0.5mg 3 Ml Ampul.Neb) 3 ml INHALE RQ4H WHILE AWAKE [facility] Last Admin: 02/12/25 08:21 Dose: 3 ml Documented By: GUILLERMO Ascorbic Acid (Ascorbic Acid 500 Mg Tablet) 500 mg PO DAILY [facility] Last Admin: 02/12/25 07:49 Dose: 500 mg Documented By: CAILIN Atorvastatin Calcium (Atorvastatin Calcium 80 Mg Tablet) 80 mg PO BEDTIME [facility] Last Admin: 02/09/25 21:22 Dose: 80 mg Documented By: AYALA Calcium Carbonate (Calcium Carbonate 750 Mg Tab.Chew) 750 mg PO Q4H PRN PRN Reason: Heartburn Dextrose (Dextrose 50 % 25 Gm/50 Ml Syringe) 25 gm IVPUSH Q15M PRN; Protocol PRN Reason: per Hypoglycemia Standing Ord. Docusate Sodium (Docusate Sodium 100 Mg Capsule) 100 mg PO BID [facility] Last Admin: 02/12/25 07:47 Dose: 100 mg Documented By: CAILIN Enoxaparin Sodium (Enoxaparin Sodium 40 Mg/0.4 Ml Syringe) 40 mg SUBCUT Q24H [facility] Last Admin: 02/11/25 12:21 Dose: 40 mg Documented By: MARCELO Folic Acid (Folic Acid 1 Mg Tablet) 1 mg PO DAILY [facility] Last Admin: 02/12/25 07:49 Dose: 1 mg Documented By: CAILIN Furosemide (Furosemide 20 Mg/2 Ml Vial) 20 mg IVPUSH BID@0900,1800 [facility]; Protocol Stop: 02/12/25 18:01 Gabapentin (Gabapentin 300 Mg Capsule) 600 mg PO TID [facility] Last Admin: 02/12/25 07:44 Dose: 600 mg Documented By: CAILIN Glucose (Glucose Gel 15 Gm Gel..Gram.) 15 gm PO Q15M PRN; Protocol PRN Reason: per Hypoglycemia Standing Ord. Guaifenesin/Dextromethorphan (Guaifenesin Dm 100/10/5 Ml 5 Ml Syrup) 5 ml PO Q4H PRN PRN Reason: Cough Last Admin: 02/12/25 06:33 Dose: 5 ml Documented By: RILEY Hydrochlorothiazide (Hydrochlorothiazide 12.5 Mg Tablet) 12.5 mg PO DAILY [facility]; Protocol Last Admin: 02/12/25 07:48 Dose: 12.5 mg Documented By: CAILIN Hydromorphone HCl (Hydromorphone Hcl 1 Mg/Ml Syringe) 0.6 mg IVPUSH Q3H PRN; Protocol PRN Reason: Pain, Severe (Pain Scale 7-10) Last Admin: 02/12/25 06:31 Dose: 0.6 mg Documented By: RILEY Daptomycin 700 mg/ Sodium (Chloride) 64 mls @ 100 mls/hr IV Q24H [facility] Last Infusion: 02/11/25 13:31 Dose: Infused Documented By: MARCELO Insulin Human Lispro (Insulin Lispro 100 Unit/Ml 3 Ml Vial) 0 unit SUBCUT QIDACHS [facility]; Protocol Last Admin: 02/12/25 09:03 Dose: 2 unit Documented By: CAILIN Levothyroxine Sodium (Levothyroxine Sodium 50 Mcg Tablet) 50 mcg PO DAILY@0600 [facility] Last Admin: 02/12/25 06:21 Dose: 50 mcg Documented By: RILEY Lidocaine (Lidocaine 4 % Patch Adh..Patch) 1 patch TRANSDERMA DAILY [facility]; Protocol Last Admin: 02/12/25 07:49 Dose: 1 patch Documented By: CAILIN Losartan Potassium (Losartan Potassium 50 Mg Tablet) 50 mg PO DAILY [facility]; Protocol Last Admin: 02/12/25 07:49 Dose: 50 mg Documented By: CAILIN Magnesium Hydroxide (Milk Of Magnesia 30 Ml Oral.Susp) 30 ml PO DAILY PRN PRN Reason: Constipation Last Admin: 02/11/25 16:28 Dose: 30 ml Documented By: MARCELO Magnesium Oxide (Magnesium [facility]ide 400 Mg Tablet) [facility] Last Admin: 02/12/25 07:49 Dose: 800 mg Documented By: CAILIN Melatonin (Melatonin 3 Mg Tablet) 6 mg PO BEDTIME PRN PRN Reason: Insomnia Last Admin: 02/07/25 20:04 Dose: 6 mg Documented By: BRYAN Metoprolol Tartrate (Metoprolol Tartrate 50 Mg Tablet) 50 mg PO BID [facility]; Protocol Last Admin: 02/12/25 07:48 Dose: 50 mg Documented By: CAILIN Ondansetron HCl (Ondansetron Hcl 4 Mg/2 Ml Vial) 4 mg IVPUSH Q8H PRN PRN Reason: Nausea and Vomiting Polyethylene Glycol (Polyethylene Glycol 3350 17 Gm Powd.Pack) 17 gm PO DAILY [facility] Last Admin: 02/12/25 07:49 Dose: 17 gm Documented By: CAILIN Senna (Sennosides 8.6 Mg Tablet) 17.2 mg PO BEDTIME [facility] Last Admin: 02/11/25 21:21 Dose: 17.2 mg Documented By: RILEY Sodium Chloride (0.9 % Sodium Chloride Flush 3 Ml Syringe) 3 ml IVFLUSH QSHIFT [facility] Last Admin: 02/12/25 07:59 Dose: 3 ml Documented By: CAILIN Tamsulosin HCl (Tamsulosin Hcl 0.4 Mg Capsule) 0.4 mg PO BEDTIME [facility] Last Admin: 02/11/25 21:21 Dose: 0.4 mg Documented By: RILEY Thiamine HCl (Thiamine Hcl 100 Mg Tablet) 100 mg PO DAILY [facility] Last Admin: 02/12/25 07:48 Dose: 100 mg Documented By: CAILIN Tramadol HCl (Tramadol Hcl 50 Mg Tablet) 100 mg PO Q6H PRN PRN Reason: Pain, Moderate(Pain Scale 4-6) Last Admin: 02/11/25 12:17 Dose: 100 mg Documented By: MARCELO Vitamin D (Cholecalciferol (Vitamin D3) 25 Mcg Tablet) 25 mcg PO DAILY [facility] Last Admin: 02/12/25 07:48 Dose: 25 mcg Documented By: CAILIN Labs 02/12/25 06:12 02/12/25 06:12 Labs: Laboratory Results - last 24 hr 02/11/25 02/11/25 02/11/25 07:33 11:15 15:49 MCV MCH MCHC RDW Plt Count MPV Absolute Nucleated RBC Nucleated RBC % (auto) ESR Anion Gap Estim Creat Clear Calc Estimated GFR POC Glucose 180 H 175 H 212 H Random Glucose Estimat Average Glucose Hemoglobin A1c % Calcium Magnesium Total Creatine Kinase C-Reactive Protein B-Natriuretic Peptide 02/11/25 02/11/25 02/12/25 19:33 20:58 06:12 MCV 92.0 MCH 31.0 MCHC 33.7 RDW 14.9 Plt Count 452 H D MPV 9.6 Absolute Nucleated RBC 0.000 Nucleated RBC % (auto) 0.0 ESR 111 H Anion Gap 15 15 Estim Creat Clear Calc 98.6 102.4 Estimated GFR > 60 > 60 POC Glucose 218 H Random Glucose 205 H 200 H Estimat Average Glucose 137 Hemoglobin A1c % 6.4 H Calcium 9.4 D 9.3 Magnesium 1.6 1.6 Total Creatine Kinase 43 C-Reactive Protein 11.15 H B-Natriuretic Peptide 512 H 02/12/25 07:18 MCV MCH MCHC RDW Plt Count MPV Absolute Nucleated RBC Nucleated RBC % (auto) ESR Anion Gap Estim Creat Clear Calc Estimated GFR POC Glucose 197 H Random Glucose Estimat Average Glucose Hemoglobin A1c % Calcium Magnesium Total Creatine Kinase C-Reactive Protein B-Natriuretic Peptide Microbiology Microbiology Results: Microbiology 02/09/25 06:18 Blood Culture - Preliminary Blood - Venous No growth after 48 hours. 02/09/25 06:19 Blood Culture - Preliminary Blood - Venous No growth after 48 hours. Assessment and Plan (1) Osteomyelitis: Status: Acute Plan d5 for 74yo M with hx CAD s/p CABG, aortic stenosis s/p bioprosthetic valve replacement, DM2, COPD/asthma, HTN, BPH, and GIO not on CPAP s/p right L4-5 lumbar decompression 01/23/25 presented with fever and admitted with sepsis ultimately found to be bacteremic with Enterococcus faecalis sepsis due to Enterococcus faecalis bacteremia with L2-L4 discitis/osteomyelitis/septic arthritis - reviewed with Neurosurgery; fluid collection along surgical incision likely seroma and regardless is spontaneously draining; no operative washout indicated - Wound Care consulted: Cleanse wit ns moist gauze, pat dry. Apply skin prep to periwound, lightly pack with Iodoform cover with Foam dressing or dry gauze and ABD pad. Change daily. Recommend follow up out pt with surgery team. At time of d/c may consider duraCitySlickerber AG to pack wound bed to allow for time between dressing changes as patient will not be able to provide self care given location and VNA will not likly be able to see daily. - vancomycin 02/06-02/10, piperacillin-tazobactam 02/06-02/07; ID consulted and will need 6 wk of IV daptomycin from culture clearance; BCx from 02/09 negative so end date of therapy will be 03/23 - will order PICC for tomorrow - TTE 02/07: 1. Technically difficult study despite use of contrast agent 2. Low normal LV ejection fraction 50-55% with mild LVH with pseudonormal filling pattern 3. Moderately dilated right ventricular with preserved contractility 4. Moderately dilated right and left atrium 5. Bioprosthetic aortic valve present with evidence of stenosis with increased gradient, could be related to patient prosthesis mismatch 5. Calcific mitral valve changes noted with possible mitral stenosis 6. Normal measured RV systolic pressure - for pain control, continue PO APAP, change tramadol back to oxycodone, continue gabapentin, trial of cyclobenzaprine; IV hydromorphone for severe pain NSVT - Mg low end of normal at 1.6; will give 2g IV Mg sulfate and discuss with Cardioology NSTEMI - Cardiology consulted; likely demand ischemia due to sepsis; no anticoagulation indicated but will need outpt ischemic workup to ensure graft patency anemia, normocytic - likely due to iron defiency and acute inflammation; replete Fe once bacterial infection under control hypomagnesesmia - continue PO maintenance, 1 IV dose as above CAD - metoprolol tartrate HTN - metoprolol tartrate + losartan + HCTZ hypothyroidism - continue LT4 excess alcohol intake - prn CIWA; monitor for withdrawal; scoring 0 at this time DM2, A1c 6.4 - patricio-dose lispro VTE ppx - enoxaparin dispo - PT consulted: AIR recommended but pt declines; will go home with VNA services In my clinical judgment, the patient requires continued inpatient hospitalization for the following reasons: IV ABX Total time managing care of this patient today: 40 minutes. Quality Stroke Does the patient have a stroke diagnosis?: No Reason for No Anti-thrombotic by Day Two: N/A - Med Ordered VTE Prior VTE?: No VTE Risk Level:: Medical - moderate - high VTE Device Contraindication: N/A - Device Ordered VTE Drug Contraindication: N/A - Med Ordered
[2025-02-12 10:21] LABS: Procalcitonin 0.14 ng/mL
[2025-02-12] MEDS: Cyclobenzaprine HCl 5 MG TABLET PO ×3 (10:54→22:14)
[2025-02-12] MEDS: Furosemide 20 MG/2 ML VIAL IVPUSH ×2 (10:56→17:46)
[2025-02-12] MEDS: Magnesium Sulfate/H2O 2 GM/50 ML PIGGYBACK IV (10:57)
[2025-02-12 11:22] LABS: Glucose, Whole Blood 255 mg/dL (60-115)
[2025-02-12] MEDS: Enoxaparin Sodium 40 MG/0.4 ML SYRINGE SUBCUT (12:17)
[2025-02-12] MEDS: oxyCODONE HCl Immed Release 5 MG TABLET 10 MG PO ×2 (12:49→17:53)
[2025-02-12] MEDS: DAPTOmycin 700 MG in 0.9 % Sodium Chloride 50 ML 100 MG IV (12:55)
[2025-02-12 15:58] LABS: Glucose, Whole Blood 209 mg/dL (60-115)
[2025-02-12 20:00] LABS: Glucose, Whole Blood 232 mg/dL (60-115)
[2025-02-12] MEDS: Tamsulosin HCL 0.4 MG CAPSULE PO (22:14)
[2025-02-12] MEDS: Sennosides 8.6 MG TABLET 17.2 MG PO (22:16)
[2025-02-13] VITALS (12 sets, daily range): BP systolic 111–162; BP diastolic 59–85; PULSE 83–119; RESP 18–22; TEMP 37–37.5; O2SAT 89–98
[2025-02-13] MEDS: HYDROmorphone HCl 1 MG/ML SYRINGE 0.6 MG IVPUSH ×4 (03:39→21:45)
[2025-02-13] MEDS: guaiFENesin DM 100/10/5 ML 5 ML SYRUP PO ×2 (03:45→13:36)
[2025-02-13] MEDS: Levothyroxine Sodium 50 MCG TABLET PO (06:44)
[2025-02-13 07:08] LABS: Magnesium 1.8 mg/dL (1.6-2.6)
[2025-02-13 07:14] LABS: Glucose, Whole Blood 203 mg/dL (60-115)
[2025-02-13] MEDS: Gabapentin 300 MG CAPSULE 600 MG PO ×3 (07:53→21:42)
[2025-02-13] MEDS: Magnesium Oxide 400 MG TABLET 800 MG PO ×2 (07:54→17:26)
[2025-02-13] MEDS: Docusate Sodium 100 MG CAPSULE PO (07:54)
[2025-02-13] MEDS: polyethylene glycoL 3350 17 GM POWD.PACK PO (07:54)
[2025-02-13] MEDS: Cholecalciferol (Vitamin D3) 25 MCG TABLET PO (08:00)
[2025-02-13] MEDS: Cyclobenzaprine HCl 5 MG TABLET PO ×3 (08:00→21:42)
[2025-02-13] MEDS: hydroCHLOROthiazide 12.5 MG TABLET PO (08:00)
[2025-02-13] MEDS: Losartan Potassium 50 MG TABLET PO (08:00)
[2025-02-13] MEDS: Ascorbic Acid 500 MG TABLET PO (08:00)
[2025-02-13] MEDS: Metoprolol Tartrate 50 MG TABLET PO ×2 (08:00→21:47)
[2025-02-13] MEDS: Folic Acid 1 MG TABLET PO (08:00)
[2025-02-13] MEDS: Thiamine HCL 100 MG TABLET PO (08:00)
[2025-02-13] MEDS: Insulin Lispro 100 UNIT/ML 3 ML VIAL SUBCUT ×3 (08:02→17:26)
[2025-02-13] MEDS: 0.9 % Sodium Chloride Flush 3 ML SYRINGE IVFLUSH ×3 (08:03→21:43)
[2025-02-13] MEDS: Lidocaine 4 % Patch ADH..PATCH 1 PATCH TRANSDERMA (08:25)
--- NOTE | 2025-02-13 10:22 | MHC.CM.PN ---
Addendum entered by Cindy Peace 02/13/25 13:29: Per MD, Patient is not yet medically cleared for dc; [facility] is interested and following Patient. CM will follow. Original Note: CM met with Patient to discuss PT's recommendation for Acute Rehab; Patient is agreeable. Referrals have been made and CM will continue to follow.
[2025-02-13 11:48] LABS: Glucose, Whole Blood 241 mg/dL (60-115)
--- NOTE | 2025-02-13 13:20 | HO.PICC ---
PICC Line Insertion NPICC Diagnosis: Sepsis bacteremia, ? lumbar infection Indication: IV antibiotics Pertinent Labs: Reviewed Technique: Following informed consent including risks, benefits and alternatives and using sterile technique including cap and mask, sterile gown, glove and drape, the right arm was prepped and draped in the usual sterile fashion of full barrier technique with G. Following completion of [place] Protocol the skin and soft tissues were anesthetized with 1% Lidocaine plain. Using ultrasound guidance, the patent right basilic vein was vein access was obtained in a single attempt by this RN. Over an 0.018 wire through peel-away sheath, a single lumen 4 [place] PASV PICC line was positioned. Catheter length is 43 cm internal length, 0 cm external length, for a total trimmed length of 43 cm. The procedure was performed in 272. Tip verification was performed by Cary Mitchell with Sherlock 3CG. Tip located in SVC. Ultrasound was used to document vein patency and for needle entry. A formal ultrasound picture and cardiac rhythm strip was recorded. V[employer] Production Posting Clerk has released the line for use and it is currently dressed with a StatLock, Tegaderm, and CHG disc. Verification has been performed for blood return and line patency. Arm Circumference: 36.5 cm Equipment: [employer] PowerPICC SOLO Catheter with 3CG Tip Catheter Type: 4 [place] single Lumen PASV PICC Lot #: [id number]
[2025-02-13] MEDS: Enoxaparin Sodium 40 MG/0.4 ML SYRINGE SUBCUT (13:36)
[2025-02-13] MEDS: DAPTOmycin 700 MG in 0.9 % Sodium Chloride 50 ML 100 MG IV (13:39)
[2025-02-13] MEDS: 0.9 % Sodium Chloride Flush 10 ML SYRINGE 5 ML IVFLUSH ×2 (13:43→21:44)
--- NOTE | 2025-02-13 15:42 | P.PNIM_ITS ---
Subjective Subjective Date of Service: 02/13/25 Interval History: Back pain slowly improving. Doing well with therapy Review of Systems Denies chest pain Denies shortness of breath Denies nausea vomiting diarrhea Denies fever chills. Admits to back pain that is somewhat improved since admission Physical Exam 2 Vital Signs: Vital Signs: Last Vital Signs Temp 98.6 F 02/13/25 12:00 Pulse 98 02/13/25 12:00 Resp 18 02/13/25 12:00 BP 159/81 H 02/13/25 12:00 Pulse Ox 95 02/13/25 12:00 O2 Del Method Nasal Cannula 02/13/25 12:00 O2 Flow Rate 2 02/13/25 12:00 BMI result Body Mass Index 37.5 Const: Other: Awake alert oriented x3 no acute distress Resp: Other: Clear to auscultation bilaterally no rales rhonchi or wheezes Cardio: Other: No S4; positive S1-S2; no S3 murmurs rubs or gallops GI: Other: Soft nontender nondistended normoactive bowel sounds Extrem: Other: No edema bilaterally Objective Data Active Medications Acetaminophen (Acetaminophen 325 Mg Tablet) 975 mg PO Q6H PRN PRN Reason: Pain, Mild (Pain Scale 1-3) Last Admin: 02/12/25 07:43 Dose: 975 mg Documented By: CAILIN Albuterol Sulfate (Albuterol Sulfate (0.083%) 2.5 Mg/3 Ml Vial.Neb) 2.5 mg INHALE Q2H PRN PRN Reason: Shortness of Breath/Wheezing Albuterol/Ipratropium (Albuterol/Iprat 2.5/0.5mg 3 Ml Ampul.Neb) 3 ml INHALE RQ4H WHILE AWAKE [facility] Last Admin: 02/13/25 15:20 Dose: Not Given Documented By: GUILLERMO Non-Admin Reason: Patient Asleep Ascorbic Acid (Ascorbic Acid 500 Mg Tablet) 500 mg PO DAILY [facility] Last Admin: 02/13/25 08:00 Dose: 500 mg Documented By: CAILIN Atorvastatin Calcium (Atorvastatin Calcium 80 Mg Tablet) 80 mg PO BEDTIME [facility] Last Admin: 02/09/25 21:22 Dose: 80 mg Documented By: AYALA Calcium Carbonate (Calcium Carbonate 750 Mg Tab.Chew) 750 mg PO Q4H PRN PRN Reason: Heartburn Cyclobenzaprine HCl (Cyclobenzaprine Hcl 5 Mg Tablet) 5 mg PO TID [facility] Last Admin: 02/13/25 13:35 Dose: 5 mg Documented By: CAILIN Dextrose (Dextrose 50 % 25 Gm/50 Ml Syringe) 25 gm IVPUSH Q15M PRN; Protocol PRN Reason: per Hypoglycemia Standing Ord. Docusate Sodium (Docusate Sodium 100 Mg Capsule) 100 mg PO BID [facility] Last Admin: 02/13/25 07:54 Dose: 100 mg Documented By: CAILIN Enoxaparin Sodium (Enoxaparin Sodium 40 Mg/0.4 Ml Syringe) 40 mg SUBCUT Q24H [facility] Last Admin: 02/13/25 13:36 Dose: 40 mg Documented By: CAILIN Folic Acid (Folic Acid 1 Mg Tablet) 1 mg PO DAILY [facility] Last Admin: 02/13/25 08:00 Dose: 1 mg Documented By: CAILIN Gabapentin (Gabapentin 300 Mg Capsule) 600 mg PO TID [facility] Last Admin: 02/13/25 13:35 Dose: 600 mg Documented By: CAILIN Glucose (Glucose Gel 15 Gm Gel..Gram.) 15 gm PO Q15M PRN; Protocol PRN Reason: per Hypoglycemia Standing Ord. Guaifenesin/Dextromethorphan (Guaifenesin Dm 100/10/5 Ml 5 Ml Syrup) 5 ml PO Q4H PRN PRN Reason: Cough Last Admin: 02/13/25 13:36 Dose: 5 ml Documented By: CAILIN Hydrochlorothiazide (Hydrochlorothiazide 12.5 Mg Tablet) 12.5 mg PO DAILY [facility]; Protocol Last Admin: 02/13/25 08:00 Dose: 12.5 mg Documented By: CAILIN Hydromorphone HCl (Hydromorphone Hcl 1 Mg/Ml Syringe) 0.6 mg IVPUSH Q3H PRN; Protocol PRN Reason: Pain, Severe (Pain Scale 7-10) Last Admin: 02/13/25 13:37 Dose: 0.6 mg Documented By: CAILIN Daptomycin 700 mg/ Sodium (Chloride) 64 mls @ 100 mls/hr IV Q24H [facility] Last Infusion: 02/13/25 14:18 Dose: Infused Documented By: CAILIN Insulin Human Lispro (Insulin Lispro 100 Unit/Ml 3 Ml Vial) 0 unit SUBCUT QIDACHS [facility]; Protocol Last Admin: 02/13/25 13:35 Dose: 4 unit Documented By: CAILIN Levothyroxine Sodium (Levothyroxine Sodium 50 Mcg Tablet) 50 mcg PO DAILY@0600 [facility] Last Admin: 02/13/25 06:44 Dose: 50 mcg Documented By: BEATRIZ Lidocaine (Lidocaine 4 % Patch Adh..Patch) 1 patch TRANSDERMA DAILY [facility]; Protocol Last Admin: 02/13/25 08:25 Dose: 1 patch Documented By: CAILIN Losartan Potassium (Losartan Potassium 50 Mg Tablet) 50 mg PO DAILY [facility]; Protocol Last Admin: 02/13/25 08:00 Dose: 50 mg Documented By: CAILIN Magnesium Hydroxide (Milk Of Magnesia 30 Ml Oral.Susp) 30 ml PO DAILY PRN PRN Reason: Constipation Last Admin: 02/11/25 16:28 Dose: 30 ml Documented By: MARCELO Magnesium Oxide ([facility]ide 400 Mg Tablet) [facility] Last Admin: 02/13/25 07:54 Dose: 800 mg Documented By: CAILIN Melatonin (Melatonin 3 Mg Tablet) 6 mg PO BEDTIME PRN PRN Reason: Insomnia Last Admin: 02/07/25 20:04 Dose: 6 mg Documented By: BRYAN Metoprolol Tartrate (Metoprolol Tartrate 50 Mg Tablet) 50 mg PO BID [facility]; Protocol Last Admin: 02/13/25 08:00 Dose: 50 mg Documented By: CAILIN Ondansetron HCl (Ondansetron Hcl 4 Mg/2 Ml Vial) 4 mg IVPUSH Q8H PRN PRN Reason: Nausea and Vomiting Oxycodone HCl (Oxycodone Hcl Immed Release 5 Mg Tablet) 10 mg PO Q4H PRN PRN Reason: Pain, Moderate(Pain Scale 4-6) Last Admin: 02/12/25 17:53 Dose: 10 mg Documented By: CAILIN Polyethylene Glycol (Polyethylene Glycol 3350 17 Gm Powd.Pack) 17 gm PO DAILY [facility] Last Admin: 02/13/25 07:54 Dose: 17 gm Documented By: CAILIN Senna (Sennosides 8.6 Mg Tablet) 17.2 mg PO BEDTIME [facility] Last Admin: 02/12/25 22:16 Dose: 17.2 mg Documented By: BEATRIZ Sodium Chloride (0.9 % Sodium Chloride Flush 3 Ml Syringe) 3 ml IVFLUSH QSHIFT [facility] Last Admin: 02/13/25 08:03 Dose: 3 ml Documented By: CAILIN Sodium Chloride (0.9 % Sodium Chloride Flush 10 Ml Syringe) 5 ml IVFLUSH TID [facility] Last Admin: 02/13/25 13:43 Dose: 5 ml Documented By: CAILIN Tamsulosin HCl (Tamsulosin Hcl 0.4 Mg Capsule) 0.4 mg PO BEDTIME [facility] Last Admin: 02/12/25 22:14 Dose: 0.4 mg Documented By: BEATRIZ Thiamine HCl (Thiamine Hcl 100 Mg Tablet) 100 mg PO DAILY [facility] Last Admin: 02/13/25 08:00 Dose: 100 mg Documented By: CAILIN Vitamin D (Cholecalciferol (Vitamin D3) 25 Mcg Tablet) 25 mcg PO DAILY [facility] Last Admin: 02/13/25 08:00 Dose: 25 mcg Documented By: CAILIN Labs 02/12/25 06:12 02/12/25 06:12 Labs: Laboratory Results - last 24 hr 02/12/25 02/12/25 02/13/25 15:48 19:56 06:01 POC Glucose 209 H 232 H Magnesium 1.8 02/13/25 02/13/25 07:09 11:44 POC Glucose 203 H 241 H Magnesium Assessment and Plan (1) Bacteremia: Status: Acute (2) NSTEMI (non-ST elevated myocardial infarction): Status: Acute (3) Insulin dependent type 2 diabetes mellitus: Status: Acute Plan 74yo M with hx CAD s/p CABG, aortic stenosis s/p bioprosthetic valve replacement, DM2, COPD/asthma, HTN, BPH, and GIO not on CPAP s/p right L4-5 lumbar decompression 01/23/25 presented with fever and admitted with sepsis ultimately found to be bacteremic with Enterococcus faecalis 1.Sepsis due to Enterococcus faecalis bacteremia - reviewed with Neurosurgery; fluid collection along surgical incision likely seroma and regardless is spontaneously draining; no operative washout indicated - Wound Care consulted: Cleanse wit ns moist gauze, pat dry. Apply skin prep to periwound, lightly pack with Iodoform cover with Foam dressing or dry gauze and ABD pad. Change daily. Recommend follow up out pt with surgery team. At time of d/c may consider [employer] to pack wound bed to allow for time between dressing changes as patient will not be able to provide self care given location and VNA will not likly be able to see daily. - vancomycin 02/06-02/10, piperacillin-tazobactam 02/06-02/07; ID consulted and will need 6 wk of IV daptomycin from culture clearance; BCx from 02/09 negative so end date of therapy will be 03/23 -PICC placed today - TTE 02/07: 1. Technically difficult study despite use of contrast agent 2. Low normal LV ejection fraction 50-55% with mild LVH with pseudonormal filling pattern 3. Moderately dilated right ventricular with preserved contractility 4. Moderately dilated right and left atrium 5. Bioprosthetic aortic valve present with evidence of stenosis with increased gradient, could be related to patient prosthesis mismatch 5. Calcific mitral valve changes noted with possible mitral stenosis 6. Normal measured RV systolic pressure -oxycodone, continue gabapentin, trial of cyclobenzaprine; IV hydromorphone for severe pain 2.NSTEMI - Cardiology consulted; likely demand ischemia due to sepsis; no anticoagulation indicated but will need outpt ischemic workup to ensure graft patency -continue current therapies 3.Anemia, normocytic - likely due to iron defiency and acute inflammation - replete Fe once bacterial infection under control 4.HTN -acceptable control on current therapies -adjust as indicated 5.DM2 -acceptable control on current therapies -lispro correctional scale -adjust as indicated enoxaparin Full Code In my clinical judgment, the patient requires continued inpatient hospitalization for the following reasons: IV ABX Quality Stroke Does the patient have a stroke diagnosis?: No Reason for No Anti-thrombotic by Day Two: N/A - Med Ordered VTE Prior VTE?: No VTE Risk Level:: Medical - moderate - high VTE Device Contraindication: N/A - Device Ordered VTE Drug Contraindication: N/A - Med Ordered
[2025-02-13 16:17] LABS: Glucose, Whole Blood 213 mg/dL (60-115)
[2025-02-13 20:22] LABS: Glucose, Whole Blood 150 mg/dL (60-115)
[2025-02-13] MEDS: Albuterol/Iprat 2.5/0.5MG 3 ML AMPUL.NEB INHALE (20:33)
[2025-02-13] MEDS: Tamsulosin HCL 0.4 MG CAPSULE PO (21:42)
[2025-02-14] VITALS (10 sets, daily range): BP systolic 110–139; BP diastolic 55–67; PULSE 83–111; RESP 16–22; TEMP 36.4–37.6; O2SAT 90–96
[2025-02-14] MEDS: oxyCODONE HCl Immed Release 5 MG TABLET 10 MG PO ×4 (00:14→17:11)
[2025-02-14] MEDS: Levothyroxine Sodium 50 MCG TABLET PO (05:07)
[2025-02-14 07:06] LABS: Basophils Absolute Auto 0.1 X10*3/uL (0.0-0.2); Basophils Percent Auto 0.8 % (0-2); Eosinophils Absolute Auto 0.3 X10*3/uL (0.0-0.4); Eosinophils Percent Auto 4.1 % (0-4); Hematocrit 24.3 % (42.0-52.0); Hemoglobin 8.1 g/dl (14.0-18.0); Imm Gran Abs Auto 0.06 X10*3/uL (0.00-0.03); Imm Gran Pct Auto 0.8 % (0.0-0.4); Lymphocytes Absolute Auto 1.5 X10*3/uL (1.2-4.9); Lymphocytes Percent Auto 20.2 % (20-40); MANUAL DIFF FLAG SCAN; Mean Corpuscular HGB Conc 33.3 g/dl (31.0-36.0); Mean Corpuscular Hemoglobin 30.9 pg (27.0-33.0); Mean Corpuscular Volume 92.7 fL (80.0-98.0); Mean Platelet Volume 9.3 fL (9.4-12.4); Monocytes Absolute Auto 1.5 X10*3/uL (0.1-1.2); Neutrophils Absolute Auto 4.1 x10*3/uL (2.0-8.3); Neutrophils Percent Auto 54.1 % (45-73); Platelet Count 490 X10*3/uL (160-400); Red Blood Count 2.62 X10*6/uL (4.60-5.80); Red Cell Distribution Width 14.6 % (11.0-16.0); SCAN SMEAR FLAG 1; White Blood Count 7.6 X10*3/uL (4.8-10.8)
[2025-02-14 07:20] LABS: Alanine Aminotransferase 77 U/L (0-40); Albumin Level 3.1 g/dL (3.5-5.0); Alkaline Phosphatase 181 U/L (39-117); Anion Gap 12 (12-20); Aspartate Amino Transferase 53 U/L (5-37); Bilirubin Total 0.9 mg/dL (0.0-1.0); Blood Urea Nitrogen 16 mg/dL (9-16); Carbon Dioxide 33 mmol/L (22-29); Chloride 89 mmol/L (96-108); Creatinine Clr Calc Pharmacy 91.8; Estimated Glomerular Filt Rate > 60; Glucose Fasting 178 mg/dL (60-99); Potassium 4.4 mmol/L (3.3-5.1); Sodium 130 mmol/L (135-145); Total Protein 6.4 g/dL (6.5-8.0)
[2025-02-14 07:35] LABS: Glucose, Whole Blood 178 mg/dL (60-115)
[2025-02-14] MEDS: Albuterol/Iprat 2.5/0.5MG 3 ML AMPUL.NEB INHALE ×4 (07:41→19:24)
--- NOTE | 2025-02-14 07:46 | HO.NEUROPN_ITS ---
Neurosurgery Operative Note Date of Service: 02/14/25 Narrative: Postop day 22, L4-5 laminotomy admitted postoperatively with sepsis, bacteremia and wound infection HPI: Jt is a pleasant 74 year old male who underwent L4-[address] Fox earlier this month. He was seen this morning with the attending Neurosurgeron Dr. Fox. He was lying in bed on 445 telemetry unit. See previous neurosurgery progress notes for specifics regarding this matter. Today, he reports feeling much better than he did yesterday the days prior. He does continue to report flare-ups of low back pain and some difficulty engaging full strength in his lower extremities. He had a PICC line placed yesterday by hospitalist service. He continues on daptomycin 700mg IV Q24hrs. Exam: No new neurological deficits. The patient has full sensation and spontaneous movement of his 4 extremities. His posterior incision site is packed and bandaged. He has a picc line placed. Labs: Patient has a white count of 10.9 as of 02/12/25. ESR 111. Reviewed labs with attending surgeon. Plan: Dave 74 year old male who underwent L4-[address] Fox earlier this month. He is feeling better in regards to his pain today. He had a picc line placed yesterday and reports he has been discussing D/C to rehab facility with case management. We would like to obtain a CRP routinely before DC. He will need continued 4-6 weeks of IV antibiotics. We will see him in clinic routinely at discharge, and will likely need to be sent to rehab with a prescription of pain medication. We can facilitate this if the hospitalist team is unable to do so. We will continue to follow him until D/C. Krzysztof Fox MD,PhD [facility]
[2025-02-14 08:43] LABS: C Reactive Protein 10.44 mg/dL (< or = 0.50)
[2025-02-14] MEDS: Thiamine HCL 100 MG TABLET PO (09:10)
[2025-02-14] MEDS: Gabapentin 300 MG CAPSULE 600 MG PO ×3 (09:10→21:44)
[2025-02-14] MEDS: Ascorbic Acid 500 MG TABLET PO (09:10)
[2025-02-14] MEDS: Magnesium Oxide 400 MG TABLET 800 MG PO ×2 (09:10→17:10)
[2025-02-14] MEDS: Cholecalciferol (Vitamin D3) 25 MCG TABLET PO (09:11)
[2025-02-14] MEDS: Metoprolol Tartrate 50 MG TABLET PO ×2 (09:11→21:44)
[2025-02-14] MEDS: Losartan Potassium 50 MG TABLET PO (09:11)
[2025-02-14] MEDS: hydroCHLOROthiazide 12.5 MG TABLET PO (09:11)
[2025-02-14] MEDS: Insulin Lispro 100 UNIT/ML 3 ML VIAL SUBCUT ×4 (09:11→21:45)
[2025-02-14] MEDS: Cyclobenzaprine HCl 5 MG TABLET PO ×3 (09:12→21:44)
[2025-02-14] MEDS: Folic Acid 1 MG TABLET PO (09:12)
[2025-02-14] MEDS: 0.9 % Sodium Chloride Flush 3 ML SYRINGE IVFLUSH ×3 (09:13→21:59)
[2025-02-14] MEDS: HYDROmorphone HCl 1 MG/ML SYRINGE 0.6 MG IVPUSH ×3 (09:13→21:55)
[2025-02-14] MEDS: Lidocaine 4 % Patch ADH..PATCH 1 PATCH TRANSDERMA (09:14)
[2025-02-14] MEDS: Docusate Sodium 100 MG CAPSULE PO ×2 (09:14→21:44)
[2025-02-14] MEDS: guaiFENesin DM 100/10/5 ML 5 ML SYRUP PO (09:17)
[2025-02-14 10:54] LABS: SLIDE REVIEW VERIFIED
[2025-02-14] MEDS: Enoxaparin Sodium 40 MG/0.4 ML SYRINGE SUBCUT (11:21)
[2025-02-14 11:59] LABS: Glucose, Whole Blood 251 mg/dL (60-115)
[2025-02-14] MEDS: DAPTOmycin 700 MG in 0.9 % Sodium Chloride 50 ML 100 MG IV (12:24)
--- NOTE | 2025-02-14 12:42 | HO.WOUND ---
Wound Consult: Follow up 74yr old?male admitted to [facility] [place] on02/07/25 - See progress notes and H&P for detailed history.? Wound consult placed for Lower Back dehiscence incision.? Patient agreeable to assessment and photo documentation.? Reviewed recommendations with MARTHA Liu agreeable to topical recommendations. Lower Back 02/09/25 02/14/25 Etiology: ??Surgical Incision Dehiscence Measurements: 0.6cm x 0.4cm x 6cm Wound Bed: appears clean red moist wound bed Drainage / Odor: copious amount of yellow orange serosang Edges: ? well defined unattached maceration noted Lilly wound: ?mild erythema No Induration, Fluctuance or Warmth noted Pain: denies at this time Goals of Treatment: ? packing with Iodoform daily. TT to MARTHA Liu discussed with Dr. Hayes at bedside. Recommendations: 1. Turn and Reposition every 2 hours and as needed for patient comfort.? Use pillows or wedges to support off loading positions. 2. Off Load all bony prominences with use of pillows and heel boots if needed.? Apply Preventative foams where needed. ? 3. Monitor for incontinence and moisture control, use barrier creams when needed for prevention and treatment. 4. Provide adequate and supplemental nutrition.? 5. When applicable maintain blood glucose levels per Providers order. Lower Bbck - Cleanse wit ns moist gauze, pat dry. Apply skin prep to periwound, lightly pack with Iodoform cover with Foam dressing or dry gauze and ABD pad. Change daily. Recommend follow up out pt with surgery team. At time of d/c may consider [employer] to pack wound bed to allow for time between dressing changes as patient will not be able to provide self care given location and VNA will not likly be able to see daily. Re-consult wound care Nurse for wound deterioration or wound changes.
--- NOTE | 2025-02-14 14:21 | MHC.CM.PN ---
CM met with Patient at bedside to review dc planning. [facility] is still reviewing and considering Patient for their facility; is aware. CM will continue to follow.
[2025-02-14] MEDS: 0.9 % Sodium Chloride Flush 10 ML SYRINGE 5 ML IVFLUSH ×2 (15:32→21:46)
--- NOTE | 2025-02-14 16:07 | HO.PM.IMPN ---
Subjective Subjective Date of Service: 02/14/25 Interval History: No acute issues overnight. Pain control adequate appears more comfortable today Review of Systems Denies chest pain Denies shortness of breath Denies nausea vomiting diarrhea Denies fever chills. Admits to back pain that is somewhat improved since admission Physical Exam Vital Signs: Vital Signs: Last Vital Signs Temp 97.6 F 02/14/25 15:32 Pulse 94 02/14/25 15:32 Resp 22 H 02/14/25 15:32 BP 113/55 L 02/14/25 15:32 Pulse Ox 93 02/14/25 15:32 O2 Del Method Room Air 02/14/25 15:32 O2 Flow Rate 2 02/14/25 08:00 BMI result Body Mass Index 37.5 Const: Other: Awake alert oriented x3 no acute distress Resp: Other: Clear to auscultation bilaterally no rales rhonchi or wheezes Cardio: Other: No S4; positive S1-S2; no S3 murmurs rubs or gallops GI: Other: Soft nontender nondistended normoactive bowel sounds Extrem: Other: No edema bilaterally Objective Data Active Medications Acetaminophen (Acetaminophen 325 Mg Tablet) 975 mg PO Q6H PRN PRN Reason: Pain, Mild (Pain Scale 1-3) Last Admin: 02/12/25 07:43 Dose: 975 mg Documented By: CAILIN Albuterol Sulfate (Albuterol Sulfate (0.083%) 2.5 Mg/3 Ml Vial.Neb) 2.5 mg INHALE Q2H PRN PRN Reason: Shortness of Breath/Wheezing Albuterol/Ipratropium (Albuterol/Iprat 2.5/0.5mg 3 Ml Ampul.Neb) 3 ml INHALE RQ4H WHILE AWAKE [facility] Last Admin: 02/14/25 14:57 Dose: 3 ml Documented By: KANDY Ascorbic Acid (Ascorbic Acid 500 Mg Tablet) 500 mg PO DAILY [facility] Last Admin: 02/14/25 09:10 Dose: 500 mg Documented By: GOKUL Atorvastatin Calcium (Atorvastatin Calcium 80 Mg Tablet) 80 mg PO BEDTIME [facility] Last Admin: 02/09/25 21:22 Dose: 80 mg Documented By: AYALA Calcium Carbonate (Calcium Carbonate 750 Mg Tab.Chew) 750 mg PO Q4H PRN PRN Reason: Heartburn Cyclobenzaprine HCl (Cyclobenzaprine Hcl 5 Mg Tablet) 5 mg PO TID [facility] Last Admin: 02/14/25 15:32 Dose: 5 mg Documented By: GOKUL Dextrose (Dextrose 50 % 25 Gm/50 Ml Syringe) 25 gm IVPUSH Q15M PRN; Protocol PRN Reason: per Hypoglycemia Standing Ord. Docusate Sodium (Docusate Sodium 100 Mg Capsule) 100 mg PO BID [facility] Last Admin: 02/14/25 09:14 Dose: 100 mg Documented By: GOKUL Enoxaparin Sodium (Enoxaparin Sodium 40 Mg/0.4 Ml Syringe) 40 mg SUBCUT Q24H [facility] Last Admin: 02/14/25 11:21 Dose: 40 mg Documented By: GOKUL Folic Acid (Folic Acid 1 Mg Tablet) 1 mg PO DAILY [facility] [place] Last Admin: 02/14/25 09:12 Dose: 1 mg Documented By: GOKUL Gabapentin (Gabapentin 300 Mg Capsule) 600 mg PO TID [facility] [place] Last Admin: 02/14/25 15:31 Dose: 600 mg Documented By: GOKUL Glucose (Glucose Gel 15 Gm Gel..Gram.) 15 gm PO Q15M PRN; Protocol PRN Reason: per Hypoglycemia Standing Ord. Guaifenesin/Dextromethorphan (Guaifenesin Dm 100/10/5 Ml 5 Ml Syrup) 5 ml PO Q4H PRN PRN Reason: Cough Last Admin: 02/14/25 09:17 Dose: 5 ml Documented By: GOKUL Hydrochlorothiazide (Hydrochlorothiazide 12.5 Mg Tablet) 12.5 mg PO DAILY [facility]; Protocol Last Admin: 02/14/25 09:11 Dose: 12.5 mg Documented By: GOKUL Hydromorphone HCl (Hydromorphone Hcl 1 Mg/Ml Syringe) 0.6 mg IVPUSH Q3H PRN; Protocol PRN Reason: Pain, Severe (Pain Scale 7-10) Last Admin: 02/14/25 13:43 Dose: 0.6 mg Documented By: GOKUL Daptomycin 700 mg/ Sodium (Chloride) 64 mls @ 100 mls/hr IV Q24H [facility] Last Infusion: 02/14/25 13:15 Dose: Infused Documented By: GOKUL Insulin Human Lispro (Insulin Lispro 100 Unit/Ml 3 Ml Vial) 0 unit SUBCUT QIDACHS [facility]; Protocol Last Admin: 02/14/25 11:24 Dose: 6 unit Documented By: GOKUL Levothyroxine Sodium (Levothyroxine Sodium 50 Mcg Tablet) 50 mcg PO DAILY@0600 [facility] Last Admin: 02/14/25 05:07 Dose: 50 mcg Documented By: JEANNE Lidocaine (Lidocaine 4 % Patch Adh..Patch) 1 patch TRANSDERMA DAILY [facility] [place]; Protocol Last Admin: 02/14/25 09:14 Dose: 1 patch Documented By: GOKUL Losartan Potassium (Losartan Potassium 50 Mg Tablet) 50 mg PO DAILY [facility]; Protocol Last Admin: 02/14/25 09:11 Dose: 50 mg Documented By: GOKUL Magnesium Hydroxide (Milk Of Magnesia 30 Ml Oral.Susp) 30 ml PO DAILY PRN PRN Reason: Constipation Last Admin: 02/11/25 16:28 Dose: 30 ml Documented By: MARCELO Magnesium Oxide (Magnesium Oxide 400 Mg Tablet) [facility] Last Admin: 02/14/25 09:10 Dose: 800 mg Documented By: GOKUL Melatonin (Melatonin 3 Mg Tablet) 6 mg PO BEDTIME PRN PRN Reason: Insomnia Last Admin: 02/07/25 20:04 Dose: 6 mg Documented By: BRYAN Metoprolol Tartrate (Metoprolol Tartrate 50 Mg Tablet) 50 mg PO BID [facility]; Protocol Last Admin: 02/14/25 09:11 Dose: 50 mg Documented By: GOKUL Ondansetron HCl (Ondansetron Hcl 4 Mg/2 Ml Vial) 4 mg IVPUSH Q8H PRN PRN Reason: Nausea and Vomiting Oxycodone HCl (Oxycodone Hcl Immed Release 5 Mg Tablet) 10 mg PO Q4H PRN PRN Reason: Pain, Moderate(Pain Scale 4-6) Last Admin: 02/14/25 11:20 Dose: 10 mg Documented By: GOKUL Polyethylene Glycol (Polyethylene Glycol 3350 17 Gm Powd.Pack) 17 gm PO DAILY [facility] Last Admin: 02/14/25 09:15 Dose: Not Given Documented By: GOKUL Non-Admin Reason: Patient Refused Senna (Sennosides 8.6 Mg Tablet) 17.2 mg PO BEDTIME [facility] Last Admin: 02/13/25 21:44 Dose: Not Given Documented By: JEANNE Non-Admin Reason: Pt declined, loose BM Sodium Chloride (0.9 % Sodium Chloride Flush 3 Ml Syringe) 3 ml IVFLUSH QSHIFT [facility] Last Admin: 02/14/25 15:32 Dose: 3 ml Documented By: GOKUL Sodium Chloride (0.9 % Sodium Chloride Flush 10 Ml Syringe) 5 ml IVFLUSH TID [facility] Last Admin: 02/14/25 15:32 Dose: 5 ml Documented By: GOKUL Tamsulosin HCl (Tamsulosin Hcl 0.4 Mg Capsule) 0.4 mg PO BEDTIME [facility] Last Admin: 02/13/25 21:42 Dose: 0.4 mg Documented By: JEANNE Thiamine HCl (Thiamine Hcl 100 Mg Tablet) 100 mg PO DAILY [facility] Last Admin: 02/14/25 09:10 Dose: 100 mg Documented By: GOKUL Vitamin D (Cholecalciferol (Vitamin D3) 25 Mcg Tablet) 25 mcg PO DAILY [facility] Last Admin: 02/14/25 09:11 Dose: 25 mcg Documented By: GOKUL Labs 02/14/25 06:09 02/14/25 06:09 Labs: Laboratory Results - last 24 hr 02/13/25 02/13/25 02/14/25 16:10 19:57 06:09 MCV 92.7 MCH 30.9 MCHC 33.3 RDW 14.6 Plt Count 490 H MPV 9.3 L Immature Gran % (Auto) 0.8 H Neut % (Auto) 54.1 Lymph % (Auto) 20.2 Archer % (Auto) 20.0 H Eos % (Auto) 4.1 H Baso % (Auto) 0.8 Lymph # (Auto) 1.5 Archer # (Auto) 1.5 H Eos # (Auto) 0.3 Baso # (Auto) 0.1 Abs Immat Gran (auto) 0.06 H Absolute Neuts (auto) 4.1 Absolute Nucleated RBC 0.000 Nucleated RBC % (auto) 0.0 Smear Tech's Comments VERIFIED Anion Gap 12 Estim Creat Clear Calc 91.8 Estimated GFR > 60 POC Glucose 213 H 150 H Fasting Glucose 178 H Calcium 9.0 Total Bilirubin 0.9 AST 53 H ALT 77 H Alkaline Phosphatase 181 H C-Reactive Protein Total Protein 6.4 L Albumin 3.1 L 02/14/25 02/14/25 02/14/25 07:22 08:16 11:21 MCV MCH MCHC RDW Plt Count MPV Immature Gran % (Auto) Neut % (Auto) Lymph % (Auto) Archer % (Auto) Eos % (Auto) Baso % (Auto) Lymph # (Auto) Archer # (Auto) Eos # (Auto) Baso # (Auto) Abs Immat Gran (auto) Absolute Neuts (auto) Absolute Nucleated RBC Nucleated RBC % (auto) Smear Tech's Comments Anion Gap Estim Creat Clear Calc Estimated GFR POC Glucose 178 H 251 H Fasting Glucose Calcium Total Bilirubin AST ALT Alkaline Phosphatase C-Reactive Protein 10.44 H Total Protein Albumin Microbiology Microbiology Results: Microbiology 02/09/25 06:18 Blood Culture - Final Blood - Venous No growth after 5 days. 02/09/25 06:19 Blood Culture - Final Blood - Venous No growth after 5 days. Assessment and Plan (1) Bacteremia: Status: Acute (2) NSTEMI (non-ST elevated myocardial infarction): Status: Acute (3) Insulin dependent type 2 diabetes mellitus: Status: Acute Plan 74yo M with hx CAD s/p CABG, aortic stenosis s/p bioprosthetic valve replacement, DM2, COPD/asthma, HTN, BPH, and GIO not on CPAP s/p right L4-5 lumbar decompression 01/23/25 presented with fever and admitted with sepsis ultimately found to be bacteremic with Enterococcus faecalis 1.Sepsis due to Enterococcus faecalis bacteremia - reviewed with Neurosurgery; fluid collection along surgical incision likely seroma and regardless is spontaneously draining; no operative washout indicated (saw patient today. See note. No barrier to discharge). Continue current therapies and treatments -oxycodone, continue gabapentin, trial of cyclobenzaprine; IV hydromorphone for severe pain -PICC line placed;vancomycin 02/06-02/10, piperacillin-tazobactam 02/06-02/07; ID consulted and will need 6 wk of IV daptomycin from culture clearance; BCx from 02/09 negative so end date of therapy will be 03/23 2.NSTEMI - Cardiology consulted; likely demand ischemia due to sepsis; no anticoagulation indicated but will need outpt ischemic workup to ensure graft patency -continue current therapies 3.Anemia, normocytic - likely due to iron defiency and acute inflammation - replete Fe once bacterial infection under control 4.HTN -acceptable control on current therapies -adjust as indicated 5.DM2 -acceptable control on current therapies -lispro correctional scale -adjust as indicated enoxaparin Full Code In my clinical judgment, the patient requires continued inpatient hospitalization for the following reasons: IV ABX Quality Stroke Does the patient have a stroke diagnosis?: No Reason for No Anti-thrombotic by Day Two: N/A - Med Ordered VTE Prior VTE?: No VTE Risk Level:: Medical - moderate - high VTE Device Contraindication: N/A - Device Ordered VTE Drug Contraindication: N/A - Med Ordered
[2025-02-14 16:35] LABS: Glucose, Whole Blood 257 mg/dL (60-115)
--- NOTE | 2025-02-14 18:47 | P.CDIM_ITS ---
PROVIDER RESPONSE TEXT: To clarify, the appropriate diagnosis supported by the clinical indicators: Other (explain): osteo r/out QUERY TEXT: PHYSICIAN'S DOCUMENTATION REQUEST Date of Query: 02/14/2025 07:58 AM EDT Patient Name: Jt Casarez Admit Date: 02/07/2025 Dear Zeferino Hayes DO, A review of the medical record indicates additional documentation may be needed. Please review below and update the documentation accordingly. Clinical Indicators: Neurosurgery progress note dated 02/08/25 - Patient readmitted for postoperative fever, bacteremia and sepsis. Postop day 16 - L4-5 hemilaminotomy, looks like some of the infection has extended into the facet fauzia nt of L4-5 and possibly diskitis and osteomyelitis at L2-3. MRI: Findings suggesting developing discitis/osteomyelitis at L2-3 with increasing edema throughout t he L2 and L3 vertebral bodies. Progress note dated 02/12/25 - Sepsis due to Enterococcus faecalis bacteremia with L2-L4 discitis/oste omyelitis. PICC line Based on the above, please clarify in the Progress Notes further specificity regarding the acuity of the noted Osteomyelitis. Acute osteomyelitis Subacute osteomyelitis Chronic osteomyelitis Chronic multifocal osteomyelitis Other (explain) Clinically unable to determine (explain) Thank you, Augusta Boss, CCS, CDIS Use of terms such as suspected, likely, concern for, or probable (associated with a specific diagnosi s that is being evaluated, monitored, or treated as if it exists) are acceptable and can be coded in the inpatient se tting, when documented at the time of discharge. Please use your independent medical judgment in providing your response. THIS QUERY IS PART OF THE PERMANENT MEDICAL RECORD
[2025-02-14 20:11] LABS: Glucose, Whole Blood 235 mg/dL (60-115)
[2025-02-14] MEDS: Sennosides 8.6 MG TABLET 17.2 MG PO (21:44)
[2025-02-14] MEDS: Tamsulosin HCL 0.4 MG CAPSULE PO (21:44)
[2025-02-15 03:33] VITALS: BP 160/67; PULSE 98; RESP 20; TEMP 37.3; O2SAT 96
[2025-02-15] MEDS: HYDROmorphone HCl 1 MG/ML SYRINGE 0.6 MG IVPUSH (03:35)
[2025-02-15] MEDS: guaiFENesin DM 100/10/5 ML 5 ML SYRUP PO (03:35)
[2025-02-15 07:01] LABS: Basophils Absolute Auto 0.1 X10*3/uL (0.0-0.2); Basophils Percent Auto 0.8 % (0-2); Eosinophils Absolute Auto 0.5 X10*3/uL (0.0-0.4); Eosinophils Percent Auto 6.6 % (0-4); Hematocrit 24.6 % (42.0-52.0); Hemoglobin 8.3 g/dl (14.0-18.0); Imm Gran Abs Auto 0.04 X10*3/uL (0.00-0.03); Imm Gran Pct Auto 0.5 % (0.0-0.4); Lymphocytes Absolute Auto 1.7 X10*3/uL (1.2-4.9); Lymphocytes Percent Auto 21.9 % (20-40); MANUAL DIFF FLAG SCAN; Mean Corpuscular HGB Conc 33.7 g/dl (31.0-36.0); Mean Corpuscular Hemoglobin 30.9 pg (27.0-33.0); Mean Corpuscular Volume 91.4 fL (80.0-98.0); Monocytes Absolute Auto 1.8 X10*3/uL (0.1-1.2); Monocytes Percent Auto 23.3 % (2-11); Neutrophils Absolute Auto 3.7 x10*3/uL (2.0-8.3); Neutrophils Percent Auto 46.9 % (45-73); Platelet Count 515 X10*3/uL (160-400); Red Blood Count 2.69 X10*6/uL (4.60-5.80); Red Cell Distribution Width 14.4 % (11.0-16.0); SCAN SMEAR FLAG 1; White Blood Count 7.9 X10*3/uL (4.8-10.8)
[2025-02-15 07:20] LABS: Glucose, Whole Blood 197 mg/dL (60-115)
[2025-02-15 07:20] LABS: Alanine Aminotransferase 80 U/L (0-40); Albumin Level 3.2 g/dL (3.5-5.0); Alkaline Phosphatase 180 U/L (39-117); Anion Gap 13 (12-20); Aspartate Amino Transferase 62 U/L (5-37); Bilirubin Total 0.8 mg/dL (0.0-1.0); Blood Urea Nitrogen 17 mg/dL (9-16); Calcium 9.7 mg/dL (8.4-10.2); Carbon Dioxide 33 mmol/L (22-29); Chloride 88 mmol/L (96-108); Creatinine Clr Calc Pharmacy 92.8; Estimated Glomerular Filt Rate > 60; Glucose Fasting 217 mg/dL (60-99); Potassium 5.2 mmol/L (3.3-5.1); Sodium 129 mmol/L (135-145); Total Protein 6.7 g/dL (6.5-8.0)
[2025-02-15 07:31] VITALS: BP 148/63; PULSE 100; RESP 18; TEMP 36.8; O2SAT 94
[2025-02-15 08:36] LABS: SLIDE REVIEW VERIFIED
[2025-02-15 08:37] LABS: B Type Natriuretic Peptide 151 pg/mL (<100)
[2025-02-15] MEDS: Albuterol/Iprat 2.5/0.5MG 3 ML AMPUL.NEB INHALE ×2 (08:43→14:55)
[2025-02-15 08:46] VITALS: PULSE 100; RESP 18; O2SAT 93
[2025-02-15] MEDS: Levothyroxine Sodium 50 MCG TABLET PO (09:42)
[2025-02-15] MEDS: Losartan Potassium 50 MG TABLET PO (09:42)
[2025-02-15] MEDS: Folic Acid 1 MG TABLET PO (09:42)
[2025-02-15] MEDS: Magnesium Oxide 400 MG TABLET 800 MG PO (09:42)
[2025-02-15] MEDS: Cholecalciferol (Vitamin D3) 25 MCG TABLET PO (09:43)
[2025-02-15] MEDS: Thiamine HCL 100 MG TABLET PO (09:43)
[2025-02-15] MEDS: oxyCODONE HCl Immed Release 5 MG TABLET 10 MG PO (09:43)
[2025-02-15] MEDS: Metoprolol Tartrate 50 MG TABLET PO (09:43)
[2025-02-15] MEDS: Docusate Sodium 100 MG CAPSULE PO (09:43)
[2025-02-15] MEDS: Ascorbic Acid 500 MG TABLET PO (09:43)
[2025-02-15] MEDS: Insulin Lispro 100 UNIT/ML 3 ML VIAL SUBCUT ×2 (09:44→14:15)
[2025-02-15] MEDS: hydroCHLOROthiazide 12.5 MG TABLET PO (09:44)
[2025-02-15] MEDS: Ferrous Sulfate 324 MG TABLET.DR PO (09:44)
[2025-02-15] MEDS: Cyclobenzaprine HCl 5 MG TABLET PO (09:44)
[2025-02-15] MEDS: Gabapentin 300 MG CAPSULE 600 MG PO (09:44)
[2025-02-15] MEDS: Sodium Zirconium Cyclosilicate 5 GM POWD.PACK PO (09:45)
[2025-02-15] MEDS: 0.9 % Sodium Chloride Flush 3 ML SYRINGE IVFLUSH (09:45)
[2025-02-15] MEDS: polyethylene glycoL 3350 17 GM POWD.PACK PO (09:45)
[2025-02-15] MEDS: 0.9 % Sodium Chloride Flush 10 ML SYRINGE 5 ML IVFLUSH (09:46)
[2025-02-15] MEDS: Lidocaine 4 % Patch ADH..PATCH 1 PATCH TRANSDERMA (10:20)
[2025-02-15] MEDS: DAPTOmycin 700 MG in 0.9 % Sodium Chloride 50 ML 100 MG IV (10:42)
[2025-02-15 11:17] LABS: Glucose, Whole Blood 309 mg/dL (60-115)
[2025-02-15 11:30] VITALS: BP 138/75; PULSE 96; RESP 20; TEMP 37.4; O2SAT 94
--- NOTE | 2025-02-15 13:02 | MHC.CM.PN ---
Per MD, Patient is medically cleared for dc to Acute Rehab today. Patient will dc to his first choice facility/[facility] today at 3PM, via [facility]. CM addressed IMM at bedside with Patient and the original was given to him and a copy was placed on the chart. Per Patient's request, CM informed Daughter/Keysha at [phone] of the dc plan.
[2025-02-15] MEDS: Enoxaparin Sodium 40 MG/0.4 ML SYRINGE SUBCUT (14:15)
[2025-02-15 14:39] LABS: Anion Gap 9 (12-20); Blood Urea Nitrogen 16 mg/dL (9-16); Calcium 7.5 mg/dL (8.4-10.2); Carbon Dioxide 27 mmol/L (22-29); Chloride 96 mmol/L (96-108); Creatinine Clr Calc Pharmacy 114.1; Estimated Glomerular Filt Rate > 60; Glucose Random 267 mg/dL (60-115); Potassium 3.9 mmol/L (3.3-5.1); Sodium 128 mmol/L (135-145)
--- NOTE | 2025-02-15 14:51 | PM.DS ---
DS: Providers Provider Date of Service: 02/15/25 Date of admission: 02/07/25 04:53 Date of discharge: 02/15/25 Primary care physician: Cornelia Medina MD Consults: 02/07/25 04:58 Consult to Cardiology Routine Consulting Provider: [facility] Reason for consultation: elevated trop, BNP, CM hx of CABDX4, AVR Has provider been notified: No 02/07/25 04:59 Consult to Neurosurgery Routine Consulting Provider: Malachi Fox Reason for consultation: post operaitve site complication 02/07/25 10:49 Consult to Infectious Diseases Routine Consulting Provider: [facility] Reason for consultation: strep bacteremia s/p recent neurosurgery 02/08/25 07:56 Consult to Wound Care Routine Reason for consultation: draining wound to L4-L5 02/08/25 14:09 Consult to Wound Care Routine Reason for consultation: pack surgical incision with iodoform DS: Diagnosis Discharge Diagnosis (1) Bacteremia: Status: Acute (2) NSTEMI (non-ST elevated myocardial infarction): Status: Acute (3) Insulin dependent type 2 diabetes mellitus: Status: Acute (4) Enterococcus faecalis infection: Status: Acute (5) Hx of aortic valve replacement: Status: Acute (6) Hyponatremia: Status: Acute (7) Hypomagnesemia: Status: Acute (8) Sepsis: Status: Acute (9) Osteomyelitis: Status: Acute (10) Diskitis: Status: Acute (11) Septic arthritis: Status: Acute (12) Back pain, lumbosacral: Status: Acute (13) Lumbar radiculopathy: Status: Acute (14) Postoperative back pain: Status: Acute (15) Anemia: Status: Acute DS: Summary Hospital Course Hospital Course: From the history and physical by the admitting hospitalist, GAMAL Calvin, 02/07/25: The patient is a 74-year-old male with a history of insulin dependent type 2 diabetes, BPH, GIO not on CPAP COPD/asthma, hypertension, alcohol use disorder (2 plus whiskeys per day, last drink was 5 days prior when pt started oral doxycyline)and elevated cholesterol. Additionally approximately 5 years ago he had open heart surgery with a triple-vessel bypass and an aortic valve replacement (pig valve). 7 years prior pt had R hip replaced. 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 Two weeks ago he had low back surgery. He had an L4-L5 laminectomy, partial facetectomy, and foraninotomy by Dr. Gorman and Dr. Fox.The patient says that following the surgery he felt significant relief from the pain he has been experiencing in his low back. Patient felt well enough to returned to work in sales and drove to [place]. During this time patient developed drainage from the lower back surgical site and reported this to Dr. Garcia's. Patient was prescribed doxycycline over the phone. On 02/05 patient did go to the ER in [place] due to the amount of drainage and back pain. He did have an MRI of the lower back. The results are unclear but he was discharged with instructions to continue the doxycycline. Patient decided to drive back to [facility] on 02/06, arrived home and then had a friend drive him to the ED as patient felt feverish and found to have a temp of 103 degrees. Patient was also tachycardic. Patient is also describing 6/10 lower back pain and is having some relief after receiving IV Dilaudid. CRP 20, ALT, AST slightly elevated, TBILI 1.4, no leukocytosis present. The ED provider did culture the surgical site and pt was started on Vanco and Zosyn. Pt LA was 2.0. Pt recieved 1L of LR. Pt's troponin went from 243 to 726 and pt denied having chest pain but was experiencing some SOB with exertion. In addition, BNP elevated with CM on CXR but no pulmonary edema or pleural effusion. CTA was completed in ED and negative for PE and PNA. Repeat troponin 1136 0422 AM and pt no longer tachycardic or febrile. Pt continues to deny chest pain. Lovenox wt based given times one along with 162 mgs of aspirin. Cardiology consulted and echo ordered. This plan reviewed with Dr. Villafuerte, hospitalist attending and provider has been updated on cardiac concerns. Repeat troponin in 3 hours. Pt reports last alcoholic drink was 5 days prior when he started the doxycyline. CIWA initiated, scoring zero currently. 74yo M with hx CAD s/p CABG, aortic stenosis s/p bioprosthetic valve replacement, DM2, COPD/asthma, HTN, BPH, and GIO not on CPAP; s/p right L4-5 lumbar decompression 01/23/[address] Fox [place] [facility] [place] [facility]; presented with fever and admitted with sepsis; ultimately found to be bacteremic with Enterococcus faecalis. Hospital course by problem: sepsis due to Enterococcus faecalis bacteremia with L2-L4 discitis/osteomyelitis/septic arthritis - reviewed with Neurosurgery; fluid collection along surgical incision was a seroma and regardless was spontaneously draining; no operative washout indicated - Wound Care consulted: Cleanse wit ns moist gauze, pat dry. Apply skin prep to periwound, lightly pack with Iodoform cover with Foam dressing or dry gauze and ABD pad. Change daily. Recommend follow up out pt with surgery team. At time of d/c may consider duraSnyppitber AG to pack wound bed to allow for time between dressing changes as patient will not be able to provide self care given location and VNA will not likly be able to see daily. - treated with IV vancomycin 02/06-02/10, piperacillin-tazobactam 02/06-02/07; ID consulted and will need 6 wk of IV daptomycin from culture clearance; BCx from 02/09 negative so end date of therapy will be 03/23; HOLD atorvastatin while on daptomycin. [place] up [place] [facility] [place] [place] [place] [facility] [place] [facility] [place] 2 weeks. Weekly labs while on daptomycin: CBCd, BMP, CPK, ESR, CRP. PICC line placed in R basilic vein 02/13. - TTE 02/07: 1. Technically difficult study despite use of contrast agent 2. Low normal LV ejection fraction 50-55% with mild LVH with pseudonormal filling pattern 3. Moderately dilated right ventricular with preserved contractility 4. Moderately dilated right and left atrium 5. Bioprosthetic aortic valve present with evidence of stenosis with increased gradient, could be related to patient prosthesis mismatch 5. Calcific mitral valve changes noted with possible mitral stenosis 6. Normal measured RV systolic pressure - pain control with PO APAP, oxycodone, gabapentin, lidocaine patch and methocarbamol NSTEMI - Cardiology consulted; likely demand ischemia due to sepsis; no anticoagulation indicated but will need outpatient ischemic workup to ensure graft patency; follow up with Cardiology after discharge from rehabilitation for stress testing - TTE 02/07: 1. Technically difficult study despite use of contrast agent 2. Low normal LV ejection fraction 50-55% with mild LVH with pseudonormal filling pattern 3. Moderately dilated right ventricular with preserved contractility 4. Moderately dilated right and left atrium 5. Bioprosthetic aortic valve present with evidence of stenosis with increased gradient, could be related to patient prosthesis mismatch 5. Calcific mitral valve changes noted with possible mitral stenosis 6. Normal measured RV systolic pressure anemia, normocytic - likely due to iron defiency and acute inflammation; started on Fe repletion hypomagnesesmia - placed on maintenance dosing hyponatremia - likely SIADH + thiazide effect; HCTZ discontinued and should repeat BMP on 02/19/[address] discharged to [facility] acute inpatient rehabilitation. Time Attestation Discharge Coordination Time (in mins): 55 Quality: Safe Use of Opioids Does Pt have an Active Cancer Diagnosis on the Problem List?: No Quality: Stroke Does the patient have a stroke diagnosis?: No Physical Exam Vital Signs: Vital Signs: Last Vital Signs Temp 99.4 F 02/15/25 11:30 Pulse 96 02/15/25 11:30 Resp 20 02/15/25 11:30 BP 138/75 02/15/25 11:30 Pulse Ox 94 02/15/25 11:30 O2 Del Method Room Air 02/15/25 11:30 O2 Flow Rate 2 02/14/25 08:00 BMI result Body Mass Index 37.5 Gen: in no acute distress HEENT: sclera anicteric, moist mucus membranes Neck: supple Lungs: diminished Heart: regular, tachycardic, no murmurs Abd: soft, nontender, non-distended Ext: trace bilateral leg edema Skin: warm/well-perfused, lumbar wound without surrounding erythema, no purulence, scant serous fluid Neuro: alert and oriented x3, no focal findings Psych: appropriate affect DS: Data Data Completed and Pending Completed studies during hospitalization [Text1]: Laboratory Results WBC 7.9 X10*3/uL (4.8-10.8) 02/15/25 06:02 RBC 2.69 X10*6/uL (4.60-5.80) L 02/15/25 06:02 Hgb 8.3 g/dl (14.0-18.0) L 02/15/25 06:02 Hct 24.6 % (42.0-52.0) L 02/15/25 06:02 MCV 91.4 fL (80.0-98.0) 02/15/25 06:02 MCH 30.9 pg (27.0-33.0) 02/15/25 06:02 MCHC 33.7 g/dl (31.0-36.0) 02/15/25 06:02 RDW 14.4 % (11.0-16.0) 02/15/25 06:02 Plt Count 515 X10*3/uL (160-400) H 02/15/25 06:02 MPV 9.0 fL (9.4-12.4) L 02/15/25 06:02 Immature Gran % (Auto) 0.5 % (0.0-0.4) H 02/15/25 06:02 Neut % (Auto) 46.9 % (45-73) 02/15/25 06:02 Lymph % (Auto) 21.9 % (20-40) 02/15/25 06:02 [place] % (Auto) 23.3 % (2-11) H 02/15/25 06:02 Eos % (Auto) 6.6 % (0-4) H 02/15/25 06:02 Baso % (Auto) 0.8 % (0-2) 02/15/25 06:02 Lymph # (Auto) 1.7 X10*3/uL (1.2-4.9) 02/15/25 06:02 [place] # (Auto) 1.8 X10*3/uL (0.1-1.2) H 02/15/25 06:02 Eos # (Auto) 0.5 X10*3/uL (0.0-0.4) H 02/15/25 06:02 Baso # (Auto) 0.1 X10*3/uL (0.0-0.2) 02/15/25 06:02 Abs Immat Gran (auto) 0.04 X10*3/uL (0.00-0.03) H 02/15/25 06:02 Absolute Neuts (auto) 3.7 x10*3/uL (2.0-8.3) 02/15/25 06:02 Absolute Nucleated RBC 0.000 X10*3/uL (0.0-0.012) 02/15/25 06:02 Nucleated RBC % (auto) 0.0 /100WBC (0.0-0.2) 02/15/25 06:02 Smear Tech's Comments VERIFIED 02/15/25 06:02 ESR 111 MM/HR (0-15) H 02/12/25 06:12 Absolute Retic 0.036 X10*6/uL (0.026-0.095) 02/09/25 06:19 Percent Retic 1.5 % (0.5-1.8) 02/09/25 06:19 Immature Retic Fraction 11.7 % (2.3-13.4) 02/09/25 06:19 Retic Hgb Equivalent 22.8 pg (30.0-35.0) L 02/09/25 06:19 Hold Purple Top SEE NOTE 02/07/25 04:22 PT 11.8 SEC (10.9-12.4) 02/08/25 07:16 INR 1.0 (0.9-1.1) 02/08/25 07:16 APTT 31.3 SEC (26.0-36.8) 02/07/25 06:09 Sodium 128 mmol/L (135-145) L 02/15/25 14:12 Potassium 3.9 mmol/L (3.3-5.1) D 02/15/25 14:12 Chloride 96 mmol/L (96-108) 02/15/25 14:12 Carbon Dioxide 27 mmol/L (22-29) 02/15/25 14:12 Anion Gap 9 (12-20) L 02/15/25 14:12 BUN 16 mg/dL (9-16) 02/15/25 14:12 Creatinine 0.70 mg/dL (0.5-1.4) 02/15/25 14:12 Estim Creat Clear Calc 114.1 02/15/25 14:12 Estimated GFR > 60 02/15/25 14:12 POC Glucose 309 mg/dL (60-115) H 02/15/25 11:06 Random Glucose 267 mg/dL (60-115) H 02/15/25 14:12 Fasting Glucose 217 mg/dL (60-99) H 02/15/25 06:02 Estimat Average Glucose 137 mg/dL 02/12/25 06:12 Hemoglobin A1c % 6.4 % (<6.0) H 02/12/25 06:12 Lactic Acid 2.0 mmol/L (0.5-2.0) 02/06/25 22:28 Calcium 7.5 mg/dL (8.4-10.2) L D 02/15/25 14:12 Magnesium 1.8 mg/dL (1.6-2.6) 02/13/25 06:01 Iron 14 mcg/dL (45-160) L 02/09/25 06:19 TIBC 183 mcg/dL (228-428) L 02/09/25 06:19 % Saturation 8 % (15-50) L 02/09/25 06:19 Unsat Iron Binding 169 ug/dL 02/09/25 06:19 Ferritin 575 ng/mL (20-250) H 02/09/25 06:19 Total Bilirubin 0.8 mg/dL (0.0-1.0) 02/15/25 06:02 AST 62 U/L (5-37) H 02/15/25 06:02 ALT 80 U/L (0-40) H 02/15/25 06:02 Alkaline Phosphatase 180 U/L (39-117) H 02/15/25 06:02 Lactate Dehydrogenase 302 U/L (118-273) H 02/09/25 06:19 Total Creatine Kinase 43 U/L (38-174) 02/12/25 06:12 Troponin I High Sens 1143.7 ng/L (<3.5-35.0) H* 02/07/25 09:43 C-Reactive Protein 10.44 mg/dL (< or = 0.50) H 02/14/25 08:16 B-Natriuretic Peptide 151 pg/mL (<100) H 02/15/25 06:02 Total Protein 6.7 g/dL (6.5-8.0) 02/15/25 06:02 Albumin 3.2 g/dL (3.5-5.0) L 02/15/25 06:02 Lipase 16 U/L (8-78) 02/06/25 22:28 Vitamin B12 649 pg/mL (200-900) 02/10/25 05:37 Folate 14.2 ng/mL (> or = 4.0) 02/10/25 05:37 Procalcitonin 0.14 ng/mL 02/12/25 06:12 TSH 0.58 uIU/mL (0.32-4.0) 02/06/25 22:28 Free T4 0.97 ng/dL (0.71-1.85) 02/06/25 22:28 Urine Color Yellow 02/06/25 23: Urine Appearance Clear 02/06/25 23:19 Urine pH 7.0 (5.0-9.0) 02/06/25 23:19 Ur Specific [place] 1.015 (1.005-1.025) 02/06/25 23:19 Urine Protein 100 (2+) mg/dL (Neg-Trace) H 02/06/25 23:19 Urine Glucose (UA) Negative mg/dL (Negative) 02/06/25 23: Urine Ketones Negative mg/dL (Negative) 02/06/25 23: Urine Blood Negative (Negative) 02/06/25 23: Urine Nitrite Negative (Negative) 02/06/25 23:19 Ur Leukocyte Esterase Trace (Negative) H 02/06/25 23:19 Urine RBC 0-2 /HPF (0-2) 02/06/25 23:19 Urine WBC 0-5 /HPF (0-5) 02/06/25 23:19 Ur Squamous Epith Cells 0-2 /HPF (0-2) 02/06/25 23:19 Urine Bacteria None Seen (None Seen) 02/06/25 23: Hyaline Casts 0-2 /LPF (0-2) 02/06/25 23:19 Random Vancomycin 14.3 mcg/mL (15-20) L 02/09/25 15:57 Blood Type B Positive 02/07/25 10:52 Antibody Screen NEGATIVE 02/07/25 10:52 Impressions Lumbar Spine MRI 02/07/25 15:08 IMPRESSION: 1. Postoperative right hemilaminectomy and microdiscectomy at L3-4. 2. Findings suggesting developing discitis/osteomyelitis at L2-3 with increasing edema throughout the L2 and superior L3 vertebral bodies. 3. Findings suggesting developing osteomyelitis/septic arthritis involving the L4-5 facet joints, with bone marrow edema also noted throughout the spinous processes of L3 and L4, also suspicious for developing infection. 4. There is diffuse dural enhancement and mild thickening throughout the lumbar spine spanning L1-2 through the termination of the thecal sac at S2. There is no discrete intradural or epidural abscess at this time. Swelling of the dorsal epidural fat pad L2-3, L3-4, and L4-5 is present, with mildly worsening mass effect on the dorsal thecal sac at these levels. There is worsening severe central canal stenosis at L4-5 which is now severe. 5. There is a small right paraspinous fluid collection along the surgical tract measuring 4.0 x 1.0 x 2.5 cm as discussed above. Unknown if this is a small abscess versus a postoperative seroma, although given the degree of surrounding enhancement, infection is suspected. 6. Stable extensive spondylotic findings otherwise, of which referral to the prior report is recommended. Electronically signed by: Bobby Pena MD 02/08/2025 08:35 AM EDT RP Discharge Plan Discharge Anticipated Discharge Date/Time: 02/15/25 14:41 Patient Disposition: Xfer Inpatient Rehab Fac Discharge Diagnosis: sepsis due to Enterococcus faecalis bacteremia/diskitis/osteomyelitis/septic arthritis NSTEMI anemia hyponatremia hypomagnesemia Referrals: [facility] [Outside] - 1 Week Cornelia Medina MD [Primary Care Provider] - 1 Week Cici Patel MD [Physician] - 2 Weeks Malachi Fox MD, PhD [Physician] - 2 Weeks Discharge Medications: New losartan 50 mg Tablet 50 mg PO DAILY Qty: 30 0RF Protocol: Hold for SBP< HOLD for SBP < : 90 oxycodone 15 mg Tablet 15 mg PO Q6H PRN (Reason: Pain, Moderate(Pain Scale 4-6)) Qty: 12 0RF Rx Instructions: Partial Fill upon patient request. sodium chloride 0.9 % (flush) [Normal Saline Flush] Syringe 5 ml IVFLUSH TID Qty: 108 0RF daptomycin 500 mg Recon Soln 700 mg IV Q24H Qty: 36 0RF ferrous sulfate 324 mg (65 mg iron) Tablet,Delayed Release (Dr/Ec) 324 mg PO DAILY Qty: 30 0RF polyethylene glycol 3350 17 gram Powder In Packet 17 g PO DAILY Qty: 30 0RF magnesium oxide 400 mg (241.3 mg magnesium) Tablet 800 mg PO BIDPC Qty: 60 0RF lidocaine [Lidocaine Pain Relief] 4 % Adhesive Patch,Medicated 1 patch transdermal DAILY Qty: 30 0RF Protocol: Apply to: Apply to: lumbar folic acid 1 mg Tablet 1 mg PO DAILY Qty: 30 0RF Continued methocarbamol 500 mg tablet 500 mg PO TID PRN (Reason: muscle spasm) Qty: 60 3RF Rx Instructions: No driving while taking this medication. 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 Depressants tamsulosin 0.4 mg Capsule 0.4 mg PO BEDTIME aspirin 81 mg Capsule 81 mg PO BEDTIME chromium 100 mcg Tablet 100 mcg PO DAILY thiamine HCl (vitamin B1) [Vitamin B-1] 100 mg Tablet 100 mg PO DAILY ascorbic acid (vitamin C) [Vitamin C] 500 mg Tablet 500 mg PO DAILY insulin lispro [Admelog U-100 Insulin lispro] 100 unit/mL solution See Rx Instructions .ROUTE .COMPLEX Rx Instructions: sldiing scale but patient only taking it after dinner 24units cholecalciferol (vitamin D3) [Vitamin D3] 25 mcg (1,000 unit) Capsule 25 mcg PO DAILY omega 5-cvu-usf-fish oil 900-1,400 mg Capsule,Delayed Release(Dr/Ec) 1 cap PO BEDTIME docusate sodium [Colace] 100 mg capsule 100 mg PO BID Qty: 20 0RF acetaminophen 500 mg Tablet 500 - 1,000 mg PO Q6H PRN (Reason: Pain) gabapentin 300 mg capsule 600 mg PO TID metformin 1,000 mg tablet 1,000 mg PO BID insulin degludec [Tresiba FlexTouch U-100] 100 unit/mL (3 mL) insulin pen 26 unit subcut BEDTIME metoprolol tartrate 50 mg tablet 50 mg PO BID albuterol sulfate 90 mcg/actuation HFA aerosol inhaler 2 puff inhalation Q6H PRN (Reason: wheezing) methenamine hippurate 1 gram tablet 1 g PO BID levothyroxine 50 mcg tablet 50 mcg PO DAILY@0600 Held atorvastatin 80 mg tablet 80 mg PO BEDTIME Hold Instructions: Resume on 03/24/25. hold while on daptomycin Discontinued diclofenac potassium 50 mg tablet 50 mg PO BID Qty: 60 0RF Rx Instructions: Take with food, do not take with any other nonsteroidal anti-inflammatory medications. doxycycline hyclate 100 mg capsule 100 mg PO BID Qty: 10 0RF Rx Instructions: Take each dose with food. tramadol 50 mg tablet 50 mg PO Q8H PRN (Reason: pain) Qty: 30 0RF ibuprofen 200 mg Tablet 200 - 400 mg PO Q6H PRN (Reason: Pain) losartan-hydrochlorothiazide 50-12.5 mg tablet 1 tab PO DAILY potassium chloride 10 mEq tablet extended release 10 meq PO DAILY Discharge Orders: Discharge Order (Routine); Ordered 02/15/25 Ordered By: Abraham Price Diet: Diabetic diet Activity on Discharge: As tolerated Stand Alone Forms: Patient Portal Discharge page Print Language: Dominican Other Ambulatory Orders: Basic Metabolic Panel (Routine) Timeframe: 20250219 Facility: [facility] - Location: Laboratory Ordered By: Abraham Price Care Plan Goals: cure of infection Health Concerns: sepsis due to Enterococcus faecalis bacteremia/diskitis/osteomyelitis/septic arthritis NSTEMI anemia hyponatremia Plan of Treatment: transfer to acute rehabilitation daptomycin via PICC line, 700 mg daily, end date 03/23/25; hold atorvastatin while on daptomycin - weekly labs while on daptomycin: CBC, CPK, BMP, ESR, CRP [place] [facility] [place] [facility] 2 [place] pain control: acetaminophen, oxycodone, gabapentin, lidocaine patch, methocarbamol wound care: Cleanse wit ns moist gauze, pat dry. Apply skin prep to periwound, lightly pack with Iodoform cover with Foam dressing or dry gauze and ABD pad. Change daily. take iron as prescribed take magnesium as prescribed stop hydrochlorothiazide; recheck BMP on 02/19/25 follow up with [facility] [place] testing after discharge from rehabilitation Please follow up with your primary care doctor within 1 week of discharge from rehabilitation Return to the hospital if you experience recurrent or worsening symptoms. Assessment: See Discharge Summary.
[2025-02-15 14:57] VITALS: PULSE 88; RESP 20; O2SAT 91
== END 2025-02-15 15:25 | DRG 862 ==
LOC: HO.ED 02-07 03:58 → HO.EDOVER 02-07 05:01 → HO.IMC 02-07 15:38
PROVIDERS: Hospitalist; Internal Medicine; Physician Assistant; Admitting Provider Nurse Practitioner Family; Emergency Provider Emergency Medicine; PCP Family Medicine; Visit Provider Family Medicine
DX: T81.44XA Sepsis following a procedure, initial encounter (principal); A41.81 Sepsis due to Enterococcus; I21.A1 Myocardial infarction type 2; I47.10 Supraventricular tachycardia, unspecified; L76.34 Postprocedural seroma of skin and subcutaneous tissue following other procedure; Y83.8 Other surgical procedures as the cause of abnormal reaction of the patient, or of later complication, without mention of misadventure at the time of the procedure; E11.42 Type 2 diabetes mellitus with diabetic polyneuropathy; G89.18 Other acute postprocedural pain; I25.10 Atherosclerotic heart disease of native coronary artery without angina pectoris; F10.10 Alcohol abuse, uncomplicated; D50.9 Iron deficiency anemia, unspecified; E03.9 Hypothyroidism, unspecified; Z95.1 Presence of aortocoronary bypass graft; E83.42 Hypomagnesemia; Z98.1 Arthrodesis status; Z95.2 Presence of prosthetic heart valve; Z79.4 Long term (current) use of insulin; Z79.82 Long term (current) use of aspirin; Z79.84 Long term (current) use of oral hypoglycemic drugs; Z79.890 Hormone replacement therapy; Z79.899 Other long term (current) drug therapy
CPT/HCPCS: 36415; 36573; 71045; 71046; 71275; 72158; 80048; 80053; 80202; 81001; 82550; 82607; 82728; 82746; 82947; 83036; 83540; 83605; 83615; 83690; 83735; 83880; 84145; 84439; 84443; 84484; 85025; 85027; 85045; 85610; 85652; 85730; 86140; 86850; 86900; 86901; 87040; 87070; 87077; 87186; 87205; 93005; 93306; 97116; 97162; 97530; 99285; A9585; C1751; J0131; J0878; J1171; J1650; J1938; J2470; J2543; J3370; J3371; J3475; J7120; Q9957; Q9967

== ENCOUNTER → 2025-02-06 22:18 | Outpatient (BNV) | payer MEDICARE, SELFPAY | PROVIDERS: Admitting Provider Nurse Practitioner Family; Emergency Provider Emergency Medicine; Visit Provider Internal Medicine Cardiovascular Disease | DX: I49.1 Atrial premature depolarization (principal); I45.10 Unspecified right bundle-branch block | CPT/HCPCS: 93010 ==

== ENCOUNTER → 2025-02-06 23:03 | Outpatient (BNV) | payer MEDICARE, SELFPAY | PROVIDERS: Emergency Provider Emergency Medicine; Visit Provider Radiology Diagnostic Radiology | DX: R50.9 Fever, unspecified (principal) | CPT/HCPCS: 71045 ==

== ENCOUNTER → 2025-02-07 00:48 | Outpatient (BNV) | payer MEDICARE, SELFPAY | PROVIDERS: Emergency Provider Emergency Medicine; Visit Provider Radiology Diagnostic Radiology | DX: M48.061 Spinal stenosis, lumbar region without neurogenic claudication (principal); M96.842 Postprocedural seroma of a musculoskeletal structure following a musculoskeletal system procedure | CPT/HCPCS: 72158 ==

== ENCOUNTER 2025-02-07 04:53 | Outpatient (BNV) | payer MEDICARE, SELFPAY | END 2025-02-08 11:10 | PROVIDERS: Admitting Provider Nurse Practitioner Family; Emergency Provider Emergency Medicine; PCP Family Medicine; Visit Provider Radiology Diagnostic Radiology | DX: J98.4 Other disorders of lung (principal) | CPT/HCPCS: 71045 ==

== ENCOUNTER 2025-02-07 04:53 | Outpatient (BNV) | payer MEDICARE, SELFPAY | END 2025-02-12 09:36 | PROVIDERS: Admitting Provider Nurse Practitioner Family; Emergency Provider Emergency Medicine; PCP Family Medicine; Visit Provider Radiology Diagnostic Radiology | DX: J98.11 Atelectasis (principal) | CPT/HCPCS: 71046 ==

== ENCOUNTER → 2025-02-07 04:53 | Outpatient (BNV) | payer MEDICARE, SELFPAY | PROVIDERS: Admitting Provider Nurse Practitioner Family; Emergency Provider Emergency Medicine; Visit Provider Physician Assistant | DX: Z48.89 Encounter for other specified surgical aftercare (principal) | CPT/HCPCS: 99024 ==

== ENCOUNTER → 2025-02-07 04:53 | Outpatient (BNV) | payer MEDICARE, SELFPAY | PROVIDERS: Admitting Provider Nurse Practitioner Family; Emergency Provider Emergency Medicine; Visit Provider Internal Medicine Cardiovascular Disease | DX: I21.4 Non-ST elevation (NSTEMI) myocardial infarction (principal); Z95.2 Presence of prosthetic heart valve | CPT/HCPCS: 93010; 93306; 99222; 99233 ==

== ENCOUNTER → 2025-02-07 04:53 | Outpatient (BNV) | payer MEDICARE, SELFPAY | PROVIDERS: Admitting Provider Nurse Practitioner Family; Emergency Provider Emergency Medicine; Visit Provider Nurse Practitioner Family | DX: R78.81 Bacteremia (principal); I21.4 Non-ST elevation (NSTEMI) myocardial infarction; E11.9 Type 2 diabetes mellitus without complications; Z79.4 Long term (current) use of insulin; A49.8 Other bacterial infections of unspecified site; Z95.2 Presence of prosthetic heart valve; E87.1 Hypo-osmolality and hyponatremia; E83.42 Hypomagnesemia; A41.9 Sepsis, unspecified organism; M86.9 Osteomyelitis, unspecified; M46.40 Discitis, unspecified, site unspecified; M00.9 Pyogenic arthritis, unspecified; M54.50 Low back pain, unspecified; M54.16 Radiculopathy, lumbar region; G89.18 Other acute postprocedural pain; M54.9 Dorsalgia, unspecified; D64.9 Anemia, unspecified | CPT/HCPCS: 99223; 99232; 99233; 99239; 99499 ==

== ENCOUNTER → 2025-02-07 04:53 | Outpatient (BNV) | payer MEDICARE, SELFPAY | PROVIDERS: Admitting Provider Nurse Practitioner Family; Emergency Provider Emergency Medicine; PCP Family Medicine; Visit Provider Internal Medicine | DX: E11.9 Type 2 diabetes mellitus without complications (principal); Z79.4 Long term (current) use of insulin; Z95.2 Presence of prosthetic heart valve; G89.18 Other acute postprocedural pain; M54.9 Dorsalgia, unspecified; A41.9 Sepsis, unspecified organism | CPT/HCPCS: 99222 ==

== ENCOUNTER 2025-02-23 15:22 | Outpatient (AMB) | payer MEDICARE, SELFPAY ==
--- NOTE | 2025-02-23 15:16 | A.OFFVIS_ITS ---
Vital Signs 02/23/25 15:53 Pulse 91 Pulse Source Pulse Oximeter Pulse Oximetry (%) 96 Intake Visit Reasons: [facility] reff/sepsis lumbar wound in a blue colored Allergies sulfamethoxazole [From Bactrim] Allergy (Severe, Verified 02/06/25 22:11) Itching trimethoprim [From Bactrim] Allergy (Severe, Verified 02/06/25 22:11) Itching tizanidine Adverse Reaction (Severe, Verified 02/06/25 22:11) Weakness HPI HPI HMC reff/sepsis lumbar wound in a blue colored : Details: He has L2-L3 disciitis and edema. He has much less drainage from lumbar wound since taking Ertapenem. He has trouble moving around and walking and is in wheelchair but no sensory or motor acute disturbances and is week 2/4 Ertapenem. [facility] Medical History Insulin dependent type 2 diabetes mellitus Alcohol use disorder Elevated troponin Postoperative back pain Acute febrile illness Hx: UTI (urinary tract infection) GIO (obstructive sleep apnea) HLD (hyperlipidemia) BPH (benign prostatic hyperplasia) Back pain Asthma Alcohol abuse Adverse effect of anesthetic CAD (coronary artery disease) Hypothyroidism Diabetes Peripheral neuropathy HTN (hypertension) Spinal stenosis Surgical History Hx of aortic valve replacement History of tonsillectomy and adenoidectomy Hx of colonoscopy (2024) History of open reduction and internal fixation (ORIF) procedure (~2021) Hx of CABG (~2018) Aortic valve replaced (~2018) History of cardiac cath (07/28/17) History of right hip replacement (08/13/17) Social History Household Members: Spouse and Family Housing: House Are you a primary inspector health care facilities to a significant other at home: No Do you presently have visiting nurse or other home services: Yes Patient Tobacco Use Status: Never used Tobacco e-Cigarette/Vaping Use: Never Used Second Hand Smoke Exposure: No service: No Current occupational status: employed Current occupation: [employer] Review of Systems Const All systems reviewed & are unremarkable except as noted in HPI and below Physical Exam Vital Signs: Last Vital Signs Pulse 91 02/23/25 15:53 Pulse Ox 96 05/02/25 15:53 Const General: cooperative Orientation/consciousness: patient oriented x3 HEENT Head: Yes normal to inspection Mouth: Normal oral and palatal mucosa present Eyes General: appearance normal, both eyes and all related structures Pupils: Equal, round and reactive pupils present Resp Effort & Inspection: normal respiratory effort Cardio Rate: regular rate Rhythm: regular rhythm GI Palpation (GI): Soft to palpation and nontender General: Yes no CVA tenderness Back/Spine/Pelvis Back: no CVA tenderness Skin General skin exam: no rashes or lesions noted Neuro General: patient oriented x3 Cranial nerves: Yes CN's II-XII intact bilaterally and Yes Equal, round and reactive pupils present Extrem Other: no drainage LS wound General: Yes normal to inspection Psych Appearance: grossly normal Assessment & Plan Assessment & Plan (1) Septic arthritis: Comment: Done in four weeks with Daptomycin,doubt it is causing GI bloating. Televisit in four weeks and then po linezolid for a month and possible po Amoxicillin prophylaxis after. Follow Neurosurgery also. Code(s): M00.9 - Pyogenic arthritis, unspecified Category: Medical Plan: na (2) Diskitis: Code(s): M46.40 - Discitis, unspecified, site unspecified Category: Medical Plan: na (3) Enterococcus faecalis infection: Code(s): A49.8 - Other bacterial infections of unspecified site Category: Medical Plan: na (4) Bacteremia: Code(s): R78.81 - Bacteremia Category: Medical Plan na Coding Level of Care Code Est Pt Level 3 (60233) Diagnoses Septic arthritis M00.9 Diskitis M46.40 Enterococcus faecalis infection A49.8 Bacteremia R78.81
--- OUTSIDE RECORDS SUMMARY | 2025-02-23 15:24 | XMS_ITS | Encounter Summary ---
Author Organization [facility] Address [address] [place] [address] Care Team Providers Care Lead Burner Helper Name Role Phone Ruth Matthews MD Primary Care Provider Encounter Details Date Type Department Care Team (Late st Contact Info) Description 02/19/2025 Lab Requisition [facility] - Main Lab [address] [facility] [place] [address] Ruth Matthews MD [address] [place] [id number] Encounter for other general examination Social History Tobacco Use Types Packs/Day Years Used Date Smoking Tobacco: Never Assessed Sex and Gender Information Value Date Recorded Sex Assigned at Not on file Legal Sex Male 8:54 PM EST Gender Identity Not on file Sexual Orientation Not on file documented as of this encounter Plan of Treatment Not on file documented as of this encounter Procedures Procedure Name Priority Date/Time Associated Diagnosis Comments CBC WITH AUTO DIFFERENTIAL Routine 02/19/2025 6:29 AM EDT Encounter for other general examination SEDIMENTATION RATE Routine 02/19/2025 6: 29 AM EDT Encounter for other general examination CBC AND DIFFERENTIAL Routine 02/19/2025 6:29 AM EDT Encounter for other general examination C-REACTIVE PROTEIN Routine 02/19/2025 6: 29 AM EDT Encounter for other general examination CREATINE KINASE Routine 02/19/2025 6:29 AM EDT Encounter for other general examination BASIC METABOLIC PANEL Routine 02/19/2025 6:29 AM EDT Encounter for other general examination documented in this encounter Results * (ABNORMAL) CBC auto differential (02/19/2025 6:29 AM EDT) [facility] Signature WBC 6.4 4.8 - 10.8 K/mcL LAB HEMETOLOGY METHOD 02/19/2025 11:08 AM [facility] RBC 3.00(L) 4.50 - 5.50 M/mcL LAB HEMETOLOGY METHOD 02/19/2025 11:08 AM [facility] Hemoglobin 9.1(L) 13.5 - 17.5 g/dL LAB HEMETOLOGY METHOD 02/19/2025 11:08 AM [facility] Hematocrit 28.3(L) 42.0 - 54.0 % LAB HEMETOLOGY METHOD 02/19/2025 11:08 AM [facility] MCV 94.6 79.0 - 98.0 FL LAB HEMETOLOGY METHOD 02/19/2025 11:08 AM [facility] MCH 30.4 27.0 - 32.0 pcg LAB HEMETOLOGY METHOD 02/19/2025 11:08 AM [facility] MCHC 32.2 32.0 - 37.0 g/dL LAB HEMETOLOGY METHOD 02/19/2025 11:08 AM [facility] RDW 14.1 11.0 - 15.0 % LAB HEMETOLOGY METHOD 02/19/2025 11:08 AM [facility] Platelets 591(H) 130 - 400 K/mcL LAB HEMETOLOGY METHOD 02/19/2025 11:08 AM [facility] MPV 9.3 7.0 - 11.0 FL LAB HEMETOLOGY METHOD 02/19/2025 11:08 AM [facility] NRBC 0.0 <1.0 % LAB HEMETOLOGY METHOD 02/19/2025 11:08 AM [facility] NRBC Absolute 0.00 <0.10 K/mcL LAB HEMETOLOGY METHOD 02/19/2025 11:08 AM [facility] Neutrophils Relative 49.1 % LAB HEMETOLOGY METHOD 02/19/2025 11:08 AM [facility] Lymphocytes Relative 21.6 % LAB HEMETOLOGY METHOD 02/19/2025 11:08 AM [facility] Monocytes Relative 23.1 % LAB HEMETOLOGY METHOD 02/19/2025 11:08 AM [facility] Eosinophils Relative 4.9 % LAB HEMETOLOGY METHOD 02/19/2025 11:08 AM [facility] Basophils Relative 1.1 % LAB HEMETOLOGY METHOD 02/19/2025 11:08 AM [facility] Immature Granulocytes Relative 0.2 % LAB HEMETOLOGY METHOD 02/19/2025 11:08 AM [facility] Neutrophils Absolute 3.12 1.50 - 7.00 K/mcL LAB HEMETOLOGY METHOD 02/19/2025 11:08 AM [facility] Lymphocytes Absolute 1.37 1.00 - 5.00 K/mcL LAB HEMETOLOGY METHOD 02/19/2025 11:08 AM [facility] Monocytes Absolute 1.47(H) 0.20 - 1.00 K/mcL LAB HEMETOLOGY METHOD 02/19/2025 11:08 AM [facility] Eosinophils Absolute 0.31 0.00 - 0.50 K/mcL LAB HEMETOLOGY METHOD 02/19/2025 11:08 AM [facility] Basophils Absolute 0.07 0.00 - 0.20 K/mcL LAB HEMETOLOGY METHOD 02/19/2025 11:08 AM [facility] Immature Granulocytes Absolute 0.01 0.00 - 0.03 K/mcL LAB HEMETOLOGY METHOD 02/19/2025 11:08 AM EDT [facility] Blood Venous blood specimen / Unknown Venipuncture / Unknown 02/19/2025 6:29 AM EDT 02/19/2025 10:04 AM EDT Ruth Matthews MD LAB BLOOD ORDERABLES Final Res ult Performing Organization Address City/[facility]/ZIP Co de Phone Number [facility] [address] [place] [address], [place] [phone] * (ABNORMAL) Sedimentation rate (02/19/2025 6:29 AM EDT) Pathologist [facility] Sed Rate 80(H) 0 - 20 mm/hr LAB HEMETOLOGY METHOD 02/19/2025 11:22 AM EDT [facility] Blood Venous blood specimen / Unknown Venipuncture / Unknown 02/19/2025 6:29 AM EDT 02/19/2025 10:04 AM EDT Ruth Matthews MD LAB BLOOD ORDERABLES Final Res ult Performing Organization Address [facility] Co de Phone Number [facility] [address] [place] [address], [place] [phone] * (ABNORMAL) C-reactive protein (02/19/2025 6:29 AM EDT) C-Reactive Protein 7.99(H) <=0.50 mg/dL LAB CHEMISTRY METHOD 02/19/2025 1:47 PM EDT [facility] Blood Venous blood specimen / Unknown Venipuncture / Unknown 02/19/2025 6:29 AM EDT 02/19/2025 10:04 AM EDT Ruth Matthews MD LAB BLOOD ORDERABLES Final Res ult Performing Organization Address City/[facility]/ZIP Co de Phone Number [facility] [address] [place] [address], [place] [phone] * Creatine kinase (02/19/2025 6:29 AM EDT) [facility] Total CK 149 22 - 269 unit/L LAB CHEMISTRY METHOD 02/19/2025 1:47 PM EDT [facility] Blood Venous blood specimen / Unknown Venipuncture / Unknown 02/19/2025 6:29 AM EDT 02/19/2025 10:04 AM EDT us Ruth Matthews MD LAB BLOOD ORDERABLES Final Res ult [facility] [address] [place] [address], [place] [phone] * (ABNORMAL) Basic metabolic panel (02/19/2025 6:29 AM EDT) [facility] Sodium 127(L) 133 - 145 mmol/L LAB CHEMISTRY METHOD 02/19/2025 1:47 PM [facility] Potassium 4.7 3.5 - 5.5 mmol/L LAB CHEMISTRY METHOD 02/19/2025 1:47 PM [facility] Chloride 91(L) 96 - 110 mmol/L LAB CHEMISTRY METHOD 02/19/2025 1:47 PM [facility] CO2 23 21 - 32 mmol/L LAB CHEMISTRY METHOD 02/19/2025 1:47 PM [facility] Anion Gap 13(H) 3 - 11 LAB CHEMISTRY METHOD 02/19/2025 1:47 PM T [facility] Glucose 133(H) 70 - 100 mg/dL LAB CHEMISTRY METHOD 02/19/2025 1:47 PM [facility] BUN 20 5 - 25 mg/dL LAB CHEMISTRY METHOD 02/19/2025 1:47 PM [facility] Creatinine 1.08 0.70 - 1.30 mg/dL LAB CHEMISTRY METHOD 02/19/2025 1:47 PM EDT [facility] eGFR 72 >=60 mL/min/1. 73m2 LAB CHEMISTRY METHOD 02/19/2025 1:47 PM EDT [facility] Comment:Calculation based on the??Chronic Kidney Disease Epidemiology Collaboration (CKD-EPI) equation refit??without adjustment for race. BUN/Creatinine Ratio 18.5 LAB CHEMISTRY METHOD 02/19/2025 1:47 PM EDT [facility] Calcium 9.2 8.5 - 10.5 mg/dL LAB CHEMISTRY METHOD 02/19/2025 1:47 PM EDT [facility] Blood Venous blood specimen / Unknown Venipuncture / Unknown 02/19/2025 6:29 AM EDT 02/19/2025 10:04 AM EDT us Ruth Matthews MD LAB BLOOD ORDERABLES Final Res ult [facility] [address] [place] [address], documented in this encounter Visit Diagnoses Diagnosis Encounter for other general examination documented in this encounter Care Teams Lead Burner Helper Relationship Specialty Start Date End Date Ruth Matthews MD [address] [place] [phone] PCP - General Internal Medicine 02/16/25 documented as of this encounter
--- OUTSIDE RECORDS SUMMARY | 2025-02-23 15:24 | XMS_ITS | Encounter Summary ---
Author Organization [facility] Address [address] [place] [address] Care Team Providers Care Computer Methods Analyst Name Role Phone Ruth Matthews MD Primary Care Provider Encounter Details Date Type Department Care Team (Late st Contact Info) Description 02/17/2025 Lab Requisition [facility] - Main Lab [address] [place] [address] Ruth Matthews MD [address] [place] [phone] Encounter for other general examination Social History [...] Procedure Name Priority Date/Time Associated Diagnosis Comments SST - GOLD Routine 02/17/2025 5:51 AM EDT Encounter for other general examination OSMOLALITY Routine 02/17/2025 5:51 AM EDT Encounter for other general examination COMPREHENSIVE METABOLIC PANEL Routine 02/17/2025 5:51 AM EDT Encounter for other general examination documented in this encounter Results * SST tube (02/17/2025 5:51 AM EDT) Extra Tube Hold for add-ons. 02/17/2025 12:01 PM EDT [facility] Comment:Auto resulted. Blood Venous blood specimen / Unknown 02/17/2025 5:51 AM EDT 02/17/2025 10:38 AM EDT us Ruth Matthews MD LAB BLOOD ORDERABLES Final Res ult Performing Organization Address City/[facility]/ZIP Co de Phone Number [facility] [address] [place] [address], [place] [phone] * (ABNORMAL) Osmolality (02/17/2025 5:51 AM EDT) [facility] Osmolality Alfredo 274(L) 280 - 300 mOsm/kg LAB CHEMISTRY METHOD 02/17/2025 11:47 AM EDT [facility] Blood Venous blood specimen / Unknown Venipuncture / Unknown 02/17/2025 5:51 AM EDT 02/17/2025 9:33 AM EDT us Ruth Mtathews MD LAB BLOOD ORDERABLES Final Res ult Performing Organization Address [facility] [[email or web address]] Co de Phone Number [facility] [address] [place] [address], [place] [phone] * (ABNORMAL) Comprehensive metabolic panel (02/17/2025 5:51 AM EDT) [facility] Sodium 128(L) 133 - 145 mmol/L LAB CHEMISTRY METHOD 02/17/2025 11:31 AM T [facility] Potassium 4.4 3.5 - 5.5 mmol/L LAB CHEMISTRY METHOD 02/17/2025 11:31 AM EDT [facility] Chloride 89(L) 96 - 110 mmol/L LAB CHEMISTRY METHOD 02/17/2025 11:31 AM EDT [facility] CO2 33(H) 21 - 32 mmol/L LAB CHEMISTRY METHOD 02/17/2025 11:31 AM T [facility] Anion Gap 6 3 - 11 LAB CHEMISTRY METHOD 02/17/2025 11:31 AM EDT [facility] Glucose 126(H) 70 - 100 mg/dL LAB CHEMISTRY METHOD 02/17/2025 11:31 AM [facility] BUN 18 5 - 25 mg/dL LAB CHEMISTRY METHOD 02/17/2025 11:31 AM [facility] Creatinine 0.89 0.70 - 1.30 mg/dL LAB CHEMISTRY METHOD 02/17/2025 11:31 AM [facility] eGFR 90 >=60 mL/min/1. 73m2 LAB CHEMISTRY METHOD 02/17/2025 11:31 AM [facility] Comment:Calculation based on the??Chronic Kidney Disease Epidemiology Collaboration (CKD-EPI) equation refit??without adjustment for race. BUN/Creatinine Ratio 20.2 LAB CHEMISTRY METHOD 02/17/2025 11:31 AM [facility] Calcium 9.1 8.5 - 10.5 mg/dL LAB CHEMISTRY METHOD 02/17/2025 11:31 AM [facility] AST (SGOT) 49(H) 10 - 42 unit/L LAB CHEMISTRY METHOD 02/17/2025 11:31 AM [facility] ALT (SGPT) 73(H) 10 - 60 unit/L LAB CHEMISTRY METHOD 02/17/2025 11:31 AM [facility] Alkaline Phosphatase 178(H) 42 - 121 unit/L LAB CHEMISTRY METHOD 02/17/2025 11:31 AM [facility] Total Protein 6.7 6.0 - 8.0 g/dL LAB CHEMISTRY METHOD 02/17/2025 11:31 AM [facility] Albumin 2.7(L) 3.2 - 5.0 g/dL LAB CHEMISTRY METHOD 02/17/2025 11:31 AM [facility] Total Bilirubin 0.8 0.0 - 1.4 mg/dL LAB CHEMISTRY METHOD 02/17/2025 11:31 AM [facility] Blood Venous blood specimen / Unknown Venipuncture / Unknown 02/17/2025 5:51 AM EDT 02/17/2025 9:33 AM EDT Ruth Matthews MD LAB BLOOD ORDERABLES Final Res ult [facility] ([facility]) [facility] [address] [place] [address], documented in this encounter Visit Diagnoses Diagnosis Encounter for other general examination documented in this encounter Care Teams Computer Methods Analyst Relationship Specialty Start Date End Date Ruth Matthews MD [address] [place] [phone] PCP - General Internal Medicine 02/16/25 documented as of this encounter
--- OUTSIDE RECORDS SUMMARY | 2025-02-23 15:24 | XMS_ITS | Encounter Summary ---
Author Organization [facility] Address [address] [place] [address] Care Team Providers Care Senior Benefits Manager Name Role Phone Ruth Matthews MD Primary Care Provider [phone] Encounter Details Date Type Department Care Team (Late st Contact Info) Description 02/17/2025 Lab Requisition [facility] - Main Lab [address] [facility] [place] [address] Ruth Matthews MD [address] [place] [phone] Encounter for other general examination Social History [...] Procedure Name Priority Date/Time Associated Diagnosis Comments SODIUM, URINE, RANDOM Routine 02/17/2025 4:00 AM EDT Encounter for other general examination OSMOLALITY, URINE Routine 02/17/2025 4:0 0 AM EDT Encounter for other general examination documented in this encounter Results * (ABNORMAL) Osmolality, urine (02/17/2025 4:00 AM EDT) Osmolality, Urine 176(L) 300 - 1,300 mOsm/kg LAB CHEMISTRY METHOD 02/17/2025 11:38 AM EDT [facility]) [facility] Urine Urine specimen obtained by clean catch procedure / Unknown 02/17/2025 4:00 AM EDT 02/17/2025 10:23 AM EDT us Ruth Matthews MD LAB URINE ORDERABLES Final Res ult Performing Organization Address [facility]/ZIP Co de Phone Number [facility] [address] [place] [address], [place] [phone] * Sodium, urine, random (02/17/2025 4:00 AM EDT) Sodium, Ur 23 mmol/L LAB CHEMISTRY METHOD 02/17/2025 11:23 AM EDT [facility] Urine Urine specimen obtained by clean catch procedure / Unknown 02/17/2025 4:00 AM EDT 02/17/2025 10:23 AM EDT us Ruth Matthews MD LAB URINE ORDERABLES Final Res ult Performing Organization Address [facility] Co de Phone Number [facility] [address] [place] [address], [place] [phone] documented in this encounter Visit Diagnoses Diagnosis Encounter for other general examination documented in this encounter Care Teams Senior Benefits Manager Relationship Specialty Start Date End Date Ruth Matthews MD [address] [place] [phone] PCP - General Internal Medicine 02/16/25 documented as of this encounter
--- OUTSIDE RECORDS SUMMARY | 2025-02-23 15:24 | XMS_ITS | Clinical Summary ---
Author Organization [address] Address [address] [place] [address] Phone Care Team Providers Care Director Of Analytics Name Role Phone Ruth Matthews MD Primary Care Provider [phone] Encounters Date Type Department Care Team Description 02/23/[address] [facility] [address] [place] [address] Ruth Matthews MD Encounter for other general examination 02/20/[address] [facility] [address] [place] [address] Ruth Matthews MD Encounter for other general examination 02/20/[address] [facility] [address] [place] [address] Ruth Matthews MD Encounter for other general examination 02/19/[address] [facility] [address] [place] [address] Ruth Matthews MD Encounter for other general examination 02/17/[address] [facility] [address] [place] [address] Ruth Matthews MD Encounter for other general examination 02/17/[address] [facility] [address] [place] [address] Ruth Matthews MD Encounter for other general examination 02/16/[address] [facility] [address] [place] [address] Ruth Matthews MD Encounter for other general examination from Last 3 Months Social History Tobacco Use Types Packs/Day Years Used Date Smoking Tobacco: Never Assessed Sex and Gender Information Value Date Recorded Sex Assigned at Not on file Legal Sex Male 8:54 PM EST Gender Identity Not on file Sexual Orientation Not on file Plan of Treatment Health Maintenance Due Date Last Done Comments Diabetes: Annual Foot Exam 1961 Diabetes: Annual Retina Eye Exam 1961 Hepatitis A Vaccines (1 of 2 - Risk 2-dose series) 1970 Hepatitis B Vaccines (1 of 3 - Risk 3-dose series) 2011 COVID-19 Vaccine ( season) 2024 12/15/2021, 01/30/2021, 01/09/2021 Cholesterol Screening (Lipid Panel) 02/16/2025 Depression Screening 02/16/2025 Diabetes: Blood Sugar Control Test (HGBA1C) 02/16/2025 Falls Risk Assessment 02/16/2025 Hepatitis C Screening 02/16/2025 Social Influencers of Health Screening 02/16/2025 Diabetes: Annual Urine Albumin-Creatinine Ratio (uACR) 10/27/2025 10/27/2024, 09/22/2023, 06/25/2022, Additional history exists Diabetes: Annual GFR (Glomerular Filtration Rate) 02/23/2026 02/23/2025, 02/19/2025, 02/17/2025, Additional history exists Hypertension/CHF/CAD Annual BMP Blood Test 02/23/2026 02/23/2025, 02/19/2025, 02/17/2025, Additional history exists DTaP,Tdap,and Td Vaccines (3 - Td or Tdap) 03/26/2031 03/26/2021, 04/07/2010 Colorectal Cancer Screening: Colonoscopy 11/29/2034 11/29/2024 Pneumococcal Vaccine: 50+ Years Completed 05/25/2019, 07/26/2017, 06/22/2008 Zoster Vaccines Completed 05/22/2022, 09/25, 10/27/2012 RSV Immunization Adult Patients Completed 11/25/2023 Influenza Vaccine Completed 09/25/2024, , 06/22/2021, Additional history exists HIB Vaccines Aged Out No longer eligi ble based on patient's age to complete this topic HPV Vaccines Aged Out No longer eligi ble based on patient's age to complete this topic IPV Vaccines Aged Out No longer eligi ble based on patient's age to complete this topic MMR Vaccines Aged Out No longer eligi ble based on patient's age to complete this topic Meningococcal ACWY Vaccine Aged Out N o longer eligible based on patient's age to complete this topic Meningococcal B Vaccine Aged Out No l onger eligible based on patient's age to complete this topic RSV Immunization Patients Under 20 months Aged Out No longer eligible based on patient's age to complete this topic Varicella Vaccines Aged Out No longer eligible based on patient's age to complete this topic Procedures Procedure Name Priority Date/Time Associated Diagnosis Comments LAVENDER - EDTA Routine 02/23/2025 5:18 AM EDT Encounter for other general examination BASIC METABOLIC PANEL Routine 02/23/2025 5:18 AM EDT Encounter for other general examination MAGNESIUM Routine 02/20/2025 7:07 AM EDT Encounter for other general examination SODIUM Routine 02/20/2025 7:07 AM EDT Encounter for other general examination OSMOLALITY, URINE Routine 02/20/2025 5:0 4 AM EDT Encounter for other general examination CBC WITH AUTO DIFFERENTIAL Routine 02/19/2025 6:29 [...] AM EDT Encounter for other general examination SST - GOLD Routine 02/17/2025 5:51 AM EDT Encounter for other general examination OSMOLALITY Routine 02/17/2025 5:51 AM EDT Encounter for other general examination COMPREHENSIVE METABOLIC PANEL Routine 02/17/2025 5:51 AM EDT Encounter for other general examination OSMOLALITY, URINE Routine 02/17/2025 4:0 0 AM EDT Encounter for other general examination SODIUM, URINE, RANDOM Routine 02/17/2025 4:00 AM EDT Encounter for other general examination MANUAL DIFFERENTIAL - SYSMEX WAM Routine 02/16/2025 6:58 AM EDT Encounter for other general examination CBC WITH AUTO DIFFERENTIAL Routine 02/16/2025 6:58 AM EDT Encounter for other general examination MAGNESIUM Routine 02/16/2025 6:58 AM EDT Encounter for other general examination CBC AND DIFFERENTIAL Routine 02/16/2025 6:58 AM EDT Encounter for other general examination COMPREHENSIVE METABOLIC PANEL Routine 02/16/2025 6:58 AM EDT Encounter for other general examination from Last 3 Months Results * Lavender tube (02/23/2025 5:18 AM EDT) Extra Tube Hold for add-ons. 02/23/2025 10:01 AM EDT [facility] Comment:Auto resulted. Blood Venous blood specimen / Unknown Venipuncture / Unknown 02/23/2025 5:18 AM EDT 02/23/2025 8:48 AM EDT Ruth Matthews MD LAB BLOOD ORDERABLES Final Res ult [facility] [address] [place] [address], * (ABNORMAL) Basic metabolic panel (02/23/2025 5:18 AM EDT) Only the most recent of2 resultswithin the time period is included. Sodium 129(L) 133 - 145 mmol/L LAB CHEMISTRY METHOD 02/23/2025 10:29 AM [facility] Potassium 4.7 3.5 - 5.5 mmol/L LAB CHEMISTRY METHOD 02/23/2025 10:29 AM [facility] Chloride 94(L) 96 - 110 mmol/L LAB CHEMISTRY METHOD 02/23/2025 10:29 AM [facility] CO2 26 21 - 32 mmol/L LAB CHEMISTRY METHOD 02/23/2025 10:29 AM [facility] Anion Gap 9 3 - 11 LAB CHEMISTRY METHOD 02/23/2025 10:29 AM [facility] Glucose 107(H) 70 - 100 mg/dL LAB CHEMISTRY METHOD 02/23/2025 10:29 AM [facility] BUN 26(H) 5 - 25 mg/dL LAB CHEMISTRY METHOD 02/23/2025 10:29 AM [facility] Creatinine 0.80 0.70 - 1.30 mg/dL LAB CHEMISTRY METHOD 02/23/2025 10:29 AM [facility] eGFR 93 >=60 mL/min/1. 73m2 LAB CHEMISTRY METHOD 02/23/2025 10:29 AM [facility] Comment:Calculation based on the??Chronic Kidney Disease Epidemiology Collaboration (CKD-EPI) equation refit??without adjustment for race. BUN/Creatinine Ratio 32.5 LAB CHEMISTRY METHOD 02/23/2025 10:29 AM [facility] Calcium 9.4 8.5 - 10.5 mg/dL LAB CHEMISTRY METHOD 02/23/2025 10:29 AM EDT [facility] Blood Venous blood specimen / Unknown Venipuncture / Unknown 02/23/2025 5:18 AM EDT 02/23/2025 8:48 AM EDT Ruth Matthews MD LAB BLOOD ORDERABLES Final Res ult Performing Organization Address City/[facility]/ZIP Co de Phone Number [facility] [address] [place] [address], [place] [phone] * (ABNORMAL) Sodium (02/20/2025 7:07 AM EDT) Sodium 128(L) 133 - 145 mmol/L LAB CHEMISTRY METHOD 02/20/2025 11:24 AM EDT [facility] Blood Venous blood specimen / Unknown Venipuncture / Unknown 02/20/2025 7:07 AM EDT 02/20/2025 9:43 AM EDT Ruth Matthews MD LAB BLOOD ORDERABLES Final Res ult Performing Organization Address [facility] Co de Phone Number [facility] [address] [place] [address], [place] [phone] * Magnesium (02/20/2025 7:07 AM EDT) Only the most recent of2 resultswithin the time period is included. Magnesium 2.2 1.9 - 2.6 mg/dL LAB CHEMISTRY METHOD 02/20/2025 11:24 AM EDT [facility] Blood Venous blood specimen / Unknown Venipuncture / Unknown 02/20/2025 7:07 AM EDT 02/20/2025 9:43 AM EDT Ruth Matthews MD LAB BLOOD ORDERABLES Final Res ult Performing Organization Address City/[facility]/ZIP Co de Phone Number [facility] [address] [place] [address], [place] [phone] * (ABNORMAL) Osmolality, urine (02/20/2025 5:04 AM EDT) Only the most recent of2 resultswithin the time period is included. [facility] Osmolality, Urine 188(L) 300 - 1,300 mOsm/kg LAB CHEMISTRY METHOD 02/20/2025 1:42 PM EDT [facility] Urine Urine specimen obtained by clean catch procedure / Unknown Non-blood Collection / Unknown 02/20/2025 5:04 AM EDT 02/20/2025 10:11 AM EDT Ruth Matthews MD LAB URINE ORDERABLES Final Res ult Performing Organization Address [facility]/ZIP Co de Phone Number [facility] [address] [place] [address], [place] [phone] * (ABNORMAL) CBC auto differential (02/19/2025 6:29 AM EDT) Only the most recent of2 resultswithin the time period is included. [facility] WBC 6.4 4.8 - 10.8 K/mcL LAB HEMETOLOGY METHOD 02/19/2025 11:08 AM EDT [facility] RBC 3.00(L) 4.50 - 5.50 M/mcL LAB HEMETOLOGY METHOD 02/19/2025 11:08 AM EDT [facility] Hemoglobin 9.1(L) 13.5 - 17.5 g/dL LAB HEMETOLOGY METHOD 02/19/2025 11:08 AM EDT [facility] Hematocrit 28.3(L) 42.0 - 54.0 % LAB HEMETOLOGY METHOD 02/19/2025 11:08 AM EDT [facility] MCV 94.6 79.0 - 98.0 FL LAB HEMETOLOGY METHOD 02/19/2025 11:08 AM [facility] MCH 30.4 27.0 - 32.0 pcg LAB HEMETOLOGY METHOD 02/19/2025 11:08 AM [facility] MCHC 32.2 32.0 - 37.0 g/dL LAB HEMETOLOGY METHOD 02/19/2025 11:08 AM [facility] RDW 14.1 11.0 - 15.0 % LAB HEMETOLOGY METHOD 02/19/2025 11:08 AM [facility] Platelets 591(H) 130 - 400 K/mcL LAB HEMETOLOGY METHOD 02/19/2025 11:08 AM [facility] MPV 9.3 7.0 - 11.0 FL LAB HEMETOLOGY METHOD 02/19/2025 11:08 AM [facility] NRBC 0.0 <1.0 % LAB HEMETOLOGY METHOD 02/19/2025 11:08 AM [facility] NRBC Absolute 0.00 <0.10 K/mcL LAB HEMETOLOGY METHOD 02/19/2025 11:08 AM [facility] Neutrophils Relative 49.1 % LAB HEMETOLOGY METHOD 02/19/2025 11:08 AM [facility] Lymphocytes Relative 21.6 % LAB HEMETOLOGY METHOD 02/19/2025 11:08 AM [facility] Monocytes Relative 23.1 % LAB HEMETOLOGY METHOD 02/19/2025 11:08 AM [facility] Eosinophils Relative 4.9 % LAB HEMETOLOGY METHOD 02/19/2025 11:08 AM [facility] Basophils Relative 1.1 % LAB HEMETOLOGY METHOD 02/19/2025 11:08 AM [facility] Immature Granulocytes Relative 0.2 % LAB HEMETOLOGY METHOD 02/19/2025 11:08 AM EDT [facility] Neutrophils Absolute 3.12 1.50 - 7.00 K/[facility] LAB HEMETOLOGY METHOD 02/19/2025 11:08 AM EDT [facility] Lymphocytes Absolute 1.37 1.00 - 5.00 K/[facility] LAB HEMETOLOGY METHOD 02/19/2025 11:08 AM EDT [facility] Monocytes Absolute 1.47(H) 0.20 - 1.00 K/[facility] LAB HEMETOLOGY METHOD 02/19/2025 11:08 AM EDT [facility] Eosinophils Absolute 0.31 0.00 - 0.50 K/[facility] LAB HEMETOLOGY METHOD 02/19/2025 11:08 AM EDT [facility] Basophils Absolute 0.07 0.00 - 0.20 K/[facility] LAB HEMETOLOGY METHOD 02/19/2025 11:08 AM EDT [facility] Immature Granulocytes Absolute 0.01 0.00 - 0.03 K/[facility] LAB HEMETOLOGY METHOD 02/19/2025 11:08 AM EDT [facility] Blood Venous blood specimen / Unknown Venipuncture / Unknown 02/19/2025 6:29 AM EDT 02/19/2025 10:04 AM EDT us Ruth Matthews MD LAB BLOOD ORDERABLES Final Res ult [facility] [address] [place] [address], * (ABNORMAL) Sedimentation rate (02/19/2025 6:29 AM EDT) Sed Rate 80(H) 0 - 20 mm/hr LAB HEMETOLOGY METHOD 02/19/2025 11:22 AM EDT [facility] Blood Venous blood specimen / Unknown Venipuncture / Unknown 02/19/2025 6:29 AM EDT 02/19/2025 10:04 AM EDT us Ruth Matthews MD LAB BLOOD ORDERABLES Final Res ult Performing Organization Address City/[facility]/ZIP Co de Phone Number [facility] [address] [place] [address], [place] [phone] * (ABNORMAL) C-reactive protein (02/19/2025 6:29 AM EDT) [facility] C-Reactive Protein 7.99(H) <=0.50 mg/dL LAB CHEMISTRY METHOD 02/19/2025 1:47 PM EDT [facility] Blood Venous blood specimen / Unknown Venipuncture / Unknown 02/19/2025 6:29 AM EDT 02/19/2025 10:04 AM EDT us Ruth Matthews MD LAB BLOOD ORDERABLES Final Res ult Performing Organization Address City/[facility]/ZIP Co de Phone Number [facility] [address] [place] [address], [place] [phone] * Creatine kinase (02/19/2025 6:29 AM EDT) [facility] Total CK 149 22 - 269 unit/L LAB CHEMISTRY METHOD 02/19/2025 1:47 PM EDT [facility] Blood Venous blood specimen / Unknown Venipuncture / Unknown 02/19/2025 6:29 AM EDT 02/19/2025 10:04 AM EDT us Ruth Matthews MD LAB BLOOD ORDERABLES Final Res ult [facility] [address] [place] [address], [place] [phone] * SST tube (02/17/2025 5:51 AM EDT) [facility] Extra Tube Hold for add-ons. 02/17/2025 12:01 PM EDT [facility] Comment:Auto resulted. Blood Venous blood specimen / Unknown 02/17/2025 5:51 AM EDT 02/17/2025 10:38 AM EDT Ruth Matthews MD LAB BLOOD ORDERABLES Final Res ult Performing Organization Address [facility] Co de Phone Number [facility] [address] [place] [address], [place] [phone] * (ABNORMAL) Osmolality (02/17/2025 5:51 AM EDT) [facility] Osmolality Alfredo 274(L) 280 - 300 mOsm/kg LAB CHEMISTRY METHOD 02/17/2025 11:47 AM EDT [facility] Blood Venous blood specimen / Unknown Venipuncture / Unknown 02/17/2025 5:51 AM EDT 02/17/2025 9:33 AM EDT Ruth Matthews MD LAB BLOOD ORDERABLES Final Res ult Performing Organization Address [facility] de Phone Number [facility] [address] [place] [address], [place] [phone] * (ABNORMAL) Comprehensive metabolic panel (02/17/2025 5:51 AM EDT) Only the most recent of2 resultswithin the time period is included. [facility] Sodium 128(L) 133 - 145 mmol/L LAB CHEMISTRY METHOD 02/17/2025 11:31 AM EDT [facility] Potassium 4.4 3.5 - 5.5 mmol/L LAB CHEMISTRY METHOD 02/17/2025 11:31 AM EDT [facility] Chloride 89(L) 96 - 110 mmol/L LAB CHEMISTRY METHOD 02/17/2025 11:31 AM EDT [facility] CO2 33(H) 21 - 32 mmol/L LAB CHEMISTRY METHOD 02/17/2025 11:31 AM [facility] Anion Gap 6 3 - 11 LAB CHEMISTRY METHOD 02/17/2025 11:31 AM [facility] Glucose 126(H) 70 - 100 mg/dL LAB CHEMISTRY METHOD 02/17/2025 11:31 AM [facility] BUN 18 5 - 25 mg/dL LAB CHEMISTRY METHOD 02/17/2025 11:31 AM [facility] Creatinine 0.89 0.70 - 1.30 mg/dL LAB CHEMISTRY METHOD 02/17/2025 11:31 AM [facility] eGFR 90 >=60 mL/min/1. 73m2 LAB CHEMISTRY METHOD 02/17/2025 11:31 AM [facility] Comment:Calculation based on the??Chronic Kidney Disease Epidemiology Collaboration (CKD-EPI) equation refit??without adjustment for race. BUN/Creatinine Ratio 20.2 LAB CHEMISTRY METHOD 02/17/2025 11:31 AM [facility] Calcium 9.1 8.5 - 10.5 mg/dL LAB CHEMISTRY METHOD 02/17/2025 11:31 AM [facility] AST (SGOT) 49(H) 10 - 42 unit/L LAB CHEMISTRY METHOD 02/17/2025 11:31 AM [facility] ALT (SGPT) 73(H) 10 - 60 unit/L LAB CHEMISTRY METHOD 02/17/2025 11:31 AM [facility] Alkaline Phosphatase 178(H) 42 - 121 unit/L LAB CHEMISTRY METHOD 02/17/2025 11:31 AM [facility] Total Protein 6.7 6.0 - 8.0 g/dL LAB CHEMISTRY METHOD 02/17/2025 11:31 AM [facility] Albumin 2.7(L) 3.2 - 5.0 g/dL LAB CHEMISTRY METHOD 02/17/2025 11:31 AM EDT [facility] Total Bilirubin 0.8 0.0 - 1.4 mg/dL LAB CHEMISTRY METHOD 02/17/2025 11:31 AM EDT [facility] Blood Venous blood specimen / Unknown Venipuncture / Unknown 02/17/2025 5:51 AM EDT 02/17/2025 9:33 AM EDT Ruth Matthews MD LAB BLOOD ORDERABLES Final Res ult [facility] [address] [place] [address], [place] [phone] * Sodium, urine, random (02/17/2025 4:00 AM EDT) Sodium, Ur 23 mmol/L LAB CHEMISTRY METHOD 02/17/2025 11:23 AM EDT [facility] Urine Urine specimen obtained by clean catch procedure / Unknown 02/17/2025 4:00 AM EDT 02/17/2025 10:23 AM EDT Ruth Matthews MD LAB URINE ORDERABLES Final Res ult [facility] [address] [place] [address], [place] [phone] * (ABNORMAL) Manual differential (02/16/2025 6:58 AM EDT) Neutrophils % 63.0 % LAB HEMETOLOGY METHOD 02/16/2025 11:23 AM EDT [facility] Lymphocytes % 13.0 % LAB HEMETOLOGY METHOD 02/16/2025 11:23 AM EDT [facility] Monocytes % 18.0 % LAB HEMETOLOGY METHOD 02/16/2025 11:23 AM EDT [facility] Eosinophils % 4.0 % LAB HEMETOLOGY METHOD 02/16[facility]2025 [facility] Basophils % 1.0 % LAB HEMETOLOGY METHOD 02/16/2025 11:23 AM [facility] Neutrophils Absolute Manual 5.04 1.50 - 7.00 K/mcL LAB HEMETOLOGY METHOD 02/16/2025 11:23 AM [facility] Lymphocytes Absolute 1.04 1.00 - 5.00 K/mcL LAB HEMETOLOGY METHOD 02/16/2025 11:23 AM [facility] Monocytes Absolute Manual 1.44(H) 0.20 - 1.00 K/mcL LAB HEMETOLOGY METHOD 02/16/2025 11:23 AM [facility] Eosinophils Absolute Manual 0.32 0.00 - 0.50 K/mcL LAB HEMETOLOGY METHOD 02/16/2025 11:23 AM [facility] Basophils Absolute Manual 0.08 0.00 - 0.20 K/mcL LAB HEMETOLOGY METHOD 02/16/2025 11:23 AM [facility] Rbc Morphology Present( A) Consistent with indices, Normal for LAB HEMETOLOGY METHOD 02/16/2025 11:23 AM [facility] Platelet Morphology - WAM See Note(A) Normal LAB HEMETOLOGY METHOD 02/16/2025 11:23 AM [facility] Comment:PLT: Normal Polychromasia Present Present( A) (none) LAB HEMETOLOGY METHOD 02/16/2025 11:23 AM [facility] Blood Venous blood specimen / Unknown Venipuncture / Unknown 02/16/2025 6:58 AM EDT 02/16/2025 9:41 AM EDT us Ruth Matthews MD LAB BLOOD ORDERABLES Final Res ult [facility] [address] [place] [address], from Last 3 Months Insurance [employer] Care Teams Director Of Analytics Relationship Specialty Start Date End Date Ruth Matthews MD [address] [place] [id number] PCP - General Internal Medicine 02/16/25
--- OUTSIDE RECORDS SUMMARY | 2025-02-23 15:24 | XMS_ITS | Encounter Summary ---
Author Organization [facility] Address [address] [place] [address] Care Team Providers Care Quarrying Manager Name Role Phone Ruth Matthews MD Primary Care Provider [phone] Encounter Details Date Type Department Care Team (Late st Contact Info) Description 02/16/[address] [facility] - Main Lab 299 [facility] [place] [address] Ruth Matthews MD [address] [place] [phone] Encounter for other general examination Social History [...] Procedure Name Priority Date/Time Associated Diagnosis Comments MANUAL DIFFERENTIAL - SYSMEX WAM Routine 02/16/2025 [...] documented in this encounter Results * (ABNORMAL) Manual differential (02/16/2025 6:58 AM EDT) Neutrophils % 63.0 % LAB HEMETOLOGY METHOD 02/16/2025 11:23 AM [facility] Lymphocytes % 13.0 % LAB HEMETOLOGY METHOD 02/16/2025 11:23 AM [facility] Monocytes % 18.0 % LAB HEMETOLOGY METHOD 02/16/2025 11:23 AM [facility] Eosinophils % 4.0 % LAB HEMETOLOGY METHOD 02/16/2025 11:23 AM [facility] Basophils % 1.0 % LAB HEMETOLOGY METHOD 02/16/2025 11:23 AM [facility] Neutrophils Absolute Manual 5.04 1.50 - 7.00 K/mcL LAB HEMETOLOGY METHOD 02/16/2025 11:23 AM [facility] Lymphocytes Absolute 1.04 1.00 - 5.00 K/mcL LAB HEMETOLOGY METHOD 02/16/2025 11:23 AM [facility] Monocytes Absolute Manual 1.44(H) 0.20 - 1.00 K/mcL LAB HEMETOLOGY METHOD 02/16/2025 11:23 AM [facility] Eosinophils Absolute Manual 0.32 0.00 - 0.50 K/mcL LAB HEMETOLOGY METHOD 02/16/2025 11:23 AM [facility] Basophils Absolute Manual 0.08 0.00 - 0.20 K/mcL LAB HEMETOLOGY METHOD 02/16/2025 11:23 AM [facility] Rbc Morphology Present( A) Consistent with indices, Normal for LAB HEMETOLOGY METHOD 02/16/2025 11:23 AM [facility] Platelet Morphology - WAM See Note(A) Normal LAB HEMETOLOGY METHOD 02/16/2025 11:23 AM [facility] Comment:PLT: Normal Polychromasia Present Present( A) (none) LAB HEMETOLOGY METHOD 02/16/2025 11:23 AM T [facility] Blood Venous blood specimen / Unknown Venipuncture / Unknown 02/16/2025 6:58 AM EDT 02/16/2025 9:41 AM EDT us Ruth Matthews MD LAB BLOOD ORDERABLES Final Res ult [facility] [address] [place] [address], [place] [phone] * (ABNORMAL) CBC auto differential (02/16/2025 6:58 AM EDT) WBC 8.0 4.8 - 10.8 K/mcL LAB HEMETOLOGY METHOD 02/16/2025 11:23 AM [facility] RBC 2.80(L) 4.50 - 5.50 M/[facility] LAB HEMETOLOGY METHOD 02/16/2025 11:23 AM [facility] Hemoglobin 8.6(L) 13.5 - 17.5 g/dL LAB HEMETOLOGY METHOD 02/16/2025 11:23 AM [facility] Hematocrit 25.9(L) 42.0 - 54.0 % LAB HEMETOLOGY METHOD 02/16/2025 11:23 AM [facility] MCV 92.5 79.0 - 98.0 FL LAB HEMETOLOGY METHOD 02/16/2025 11:23 AM [facility] MCH 30.7 27.0 - 32.0 pcg LAB HEMETOLOGY METHOD 02/16/2025 11:23 AM [facility] MCHC 33.2 32.0 - 37.0 g/dL LAB HEMETOLOGY METHOD 02/16/2025 11:23 AM [facility] RDW 14.3 11.0 - 15.0 % LAB HEMETOLOGY METHOD 02/16/2025 11:23 AM EDT [facility] Platelets 570(H) 130 - 400 K/mcL LAB HEMETOLOGY METHOD 02/16/2025 11:23 AM EDT [facility] MPV 9.4 7.0 - 11.0 FL LAB HEMETOLOGY METHOD 02/16/2025 11:23 AM EDT [facility] NRBC 0.0 <1.0 % LAB HEMETOLOGY METHOD 02/16/2025 11:23 AM EDT [facility] NRBC Absolute 0.00 <0.10 K/mcL LAB HEMETOLOGY METHOD 02/16/2025 11:23 AM EDT [facility] Blood Venous blood specimen / Unknown Venipuncture / Unknown 02/16/2025 6:58 AM EDT 02/16/2025 9:41 AM EDT Ruth Matthews MD LAB BLOOD ORDERABLES Final Res ult [facility] [address] [place] [address], [place] [phone] * (ABNORMAL) Magnesium (02/16/2025 6:58 AM EDT) Magnesium 1.8(L) 1.9 - 2.6 mg/dL LAB CHEMISTRY METHOD 02/16/2025 11:08 AM EDT [facility] Blood Venous blood specimen / Unknown Venipuncture / Unknown 02/16/2025 6:58 AM EDT 02/16/2025 9:41 AM EDT Ruth Matthews MD LAB BLOOD ORDERABLES Final Res ult [facility] [address] [place] [address], [place] [phone] * (ABNORMAL) Comprehensive metabolic panel (02/16/2025 6:58 AM EDT) Sodium 126(L) 133 - 145 mmol/L LAB CHEMISTRY METHOD 02/16/2025 11:10 AM [facility] Potassium 4.7 3.5 - 5.5 mmol/L LAB CHEMISTRY METHOD 02/16/2025 11:10 AM [facility] Chloride 86(L) 96 - 110 mmol/L LAB CHEMISTRY METHOD 02/16/2025 11:10 AM [facility] CO2 30 21 - 32 mmol/L LAB CHEMISTRY METHOD 02/16/2025 11:10 AM [facility] Anion Gap 10 3 - 11 LAB CHEMISTRY METHOD 02/16/2025 11:10 AM [facility] Glucose 184(H) 70 - 100 mg/dL LAB CHEMISTRY METHOD 02/16/2025 11:10 AM [facility] BUN 17 5 - 25 mg/dL LAB CHEMISTRY METHOD 02/16/2025 11:10 AM [facility] Creatinine 0.94 0.70 - 1.30 mg/dL LAB CHEMISTRY METHOD 02/16/2025 11:10 AM [facility] eGFR 86 >=60 mL/min/1. 73m2 LAB CHEMISTRY METHOD 02/16/2025 11:10 AM [facility] Comment:Calculation based on the??Chronic Kidney Disease Epidemiology Collaboration (CKD-EPI) equation refit??without adjustment for race. BUN/Creatinine Ratio 18.1 LAB CHEMISTRY METHOD 02/16/2025 11:10 AM [facility] Calcium 9.2 8.5 - 10.5 mg/dL LAB CHEMISTRY METHOD 02/16/2025 11:10 AM [facility] AST (SGOT) 45(H) 10 - 42 unit/L LAB CHEMISTRY METHOD 02/16/2025 11:10 AM EDT [facility] ALT (SGPT) 76(H) 10 - 60 unit/L LAB CHEMISTRY METHOD 02/16/2025 11:10 AM EDT [facility] Alkaline Phosphatase 194(H) 42 - 121 unit/L LAB CHEMISTRY METHOD 02/16/2025 11:10 AM T [facility] Total Protein 7.1 6.0 - 8.0 g/dL LAB CHEMISTRY METHOD 02/16/2025 11:10 AM T [facility] Albumin 2.7(L) 3.2 - 5.0 g/dL LAB CHEMISTRY METHOD 02/16/2025 11:10 AM T [facility] Total Bilirubin 1.0 0.0 - 1.4 mg/dL LAB CHEMISTRY METHOD 02/16/2025 11:10 AM [facility] Blood Venous blood specimen / Unknown Venipuncture / Unknown 02/16/2025 6:58 AM EDT 02/16/2025 9:41 AM EDT us Ruth Matthews MD LAB BLOOD ORDERABLES Final Res ult [facility] [address] [place] [address], documented in this encounter Visit Diagnoses Diagnosis Encounter for other general examination documented in this encounter Care Teams Quarrying Manager Relationship Specialty Start Date End Date Ruth Matthews MD [address] [place] [phone] PCP - General Internal Medicine 02/16/25 documented as of this encounter
--- OUTSIDE RECORDS SUMMARY | 2025-02-23 15:24 | XMS_ITS | Encounter Summary ---
Author Organization [facility] Address [address] [place] [address] Care Team Providers Care Cassandra Consultant Name Role Phone Ruth Matthews MD Primary Care Provider Encounter Details Date Type Department Care Team (Late st Contact Info) Description 02/23/2025 Lab Requisition [facility] - Main Lab 299 [facility] [place] [address] Ruth Matthews MD [address] [place] [phone] Encounter for other general examination Social History [...] examination documented in this encounter Results * Lavender tube (02/23/2025 5:18 AM EDT) Extra Tube Hold for add-ons. 02/23/2025 10:01 AM EDT [facility] Comment:Auto resulted. Blood Venous blood specimen / Unknown Venipuncture / Unknown 02/23/2025 5:18 AM EDT 02/23/2025 8:48 AM EDT Ruth Matthews MD LAB BLOOD ORDERABLES Final Res ult [facility] [address] [place] [address], * (ABNORMAL) Basic metabolic panel (02/23/2025 5:18 AM EDT) Sodium 129(L) 133 - 145 mmol/L LAB CHEMISTRY METHOD 02/23/2025 10:29 AM [facility] Potassium 4.7 3.5 - 5.5 mmol/L LAB CHEMISTRY METHOD 02/23/2025 10:29 AM [facility] Chloride 94(L) 96 - 110 mmol/L LAB CHEMISTRY METHOD 02/23/2025 10:29 AM [facility] CO2 26 21 - 32 mmol/L LAB CHEMISTRY METHOD 02/23/2025 10:29 AM [facility] Anion Gap 9 3 - 11 LAB CHEMISTRY METHOD 02/23/2025 10:29 AM [facility] Glucose 107(H) 70 - 100 mg/dL LAB CHEMISTRY METHOD 02/23/2025 10:29 AM [facility] BUN 26(H) 5 - 25 mg/dL LAB CHEMISTRY METHOD 02/23/2025 10:29 AM [facility] Creatinine 0.80 0.70 - 1.30 mg/dL LAB CHEMISTRY METHOD 02/23/2025 10:29 AM [facility] eGFR 93 >=60 mL/min/1. 73m2 LAB CHEMISTRY METHOD 02/23/2025 10:29 AM [facility] Comment:Calculation based on the??Chronic Kidney Disease Epidemiology Collaboration (CKD-EPI) equation refit??without adjustment for race. BUN/Creatinine Ratio 32.5 LAB CHEMISTRY METHOD 02/23/2025 10:29 AM [facility] Calcium 9.4 8.5 - 10.5 mg/dL LAB CHEMISTRY METHOD 02/23/2025 10:29 AM EDT [facility] Blood Venous blood specimen / Unknown Venipuncture / Unknown 02/23/2025 5:18 AM EDT 02/23/2025 8:48 AM EDT us Ruth Matthews MD LAB BLOOD ORDERABLES Final Res ult [facility] [address] [place] [address], documented in this encounter Visit Diagnoses Diagnosis Encounter for other general examination documented in this encounter Care Teams Cassandra Consultant Relationship Specialty Start Date End Date Ruth Matthews MD [address] [place] [phone] PCP - General Internal Medicine 02/16/25 documented as of this encounter
--- OUTSIDE RECORDS SUMMARY | 2025-02-23 15:24 | XMS_ITS | Encounter Summary ---
Author Organization [facility] Address [address] [place] [address] Care Team Providers Care Motel Maid Name Role Phone Ruth Matthews MD Primary Care Provider Encounter Details Date Type Department Care Team (Late st Contact Info) Description 02/20/2025 Lab Requisition [facility] - Main Lab [address] [place] [address] Ruth Matthews MD [address] [place] [phone] Encounter for other general examination Social History [...] Procedure Name Priority Date/Time Associated Diagnosis Comments OSMOLALITY, URINE Routine 02/20/2025 5:0 4 AM EDT Encounter for other general examination documented in this encounter Results * (ABNORMAL) Osmolality, urine (02/20/2025 5:04 AM EDT) Osmolality, Urine 188(L) 300 - 1,300 mOsm/kg LAB CHEMISTRY METHOD 02/20/2025 1:42 PM EDT [facility] Urine Urine specimen obtained by clean catch procedure / Unknown Non-blood Collection / Unknown 02/20/2025 5:04 AM EDT 02/20/2025 10:11 AM EDT us Ruth Matthews MD LAB URINE ORDERABLES Final Res ult [facility] [address] [place] [address], documented in this encounter Visit Diagnoses Diagnosis Encounter for other general examination documented in this encounter Care Teams Motel Maid Relationship Specialty Start Date End Date Ruth Matthews MD [address] [place] [phone] PCP - General Internal Medicine 02/16/25 documented as of this encounter
--- OUTSIDE RECORDS SUMMARY | 2025-02-23 15:24 | XMS_ITS | Encounter Summary ---
Author Organization [facility] Address [address] [place] [address] Care Team Providers Care Fur Tailor Name Role Phone Ruth Matthews MD Primary Care Provider [phone] Encounter Details Date Type Department Care Team (Late st Contact Info) Description 02/20/2025 Lab Requisition [facility] - Main Lab [address] [place] [address] Ruth Matthews MD [address] [place] [address] Encounter for other general examination Social History [...] Procedure Name Priority Date/Time Associated Diagnosis Comments SODIUM Routine 02/20/2025 7:07 AM EDT Encounter for other general examination MAGNESIUM Routine 02/20/2025 7:07 AM EDT Encounter for other general examination documented in this encounter Results * Magnesium (02/20/2025 7:07 AM EDT) Magnesium 2.2 1.9 - 2.6 mg/dL LAB CHEMISTRY METHOD 02/20/2025 11:24 AM EDT [facility] Blood Venous blood specimen / Unknown Venipuncture / Unknown 02/20/2025 7:07 AM EDT 02/20/2025 9:43 AM EDT Ruth Matthews MD LAB BLOOD ORDERABLES Final Res ult Performing Organization Address [facility]/ZIP Co de Phone Number [facility] [address] [place] [address], * (ABNORMAL) Sodium (02/20/2025 7:07 AM EDT) Sodium 128(L) 133 - 145 mmol/L LAB CHEMISTRY METHOD 02/20/2025 11:24 AM EDT [facility] Blood Venous blood specimen / Unknown Venipuncture / Unknown 02/20/2025 7:07 AM EDT 02/20/2025 9:43 AM EDT Ruth Matthews MD LAB BLOOD ORDERABLES Final Res ult Performing Organization Address [facility] Co de Phone Number [facility] [address] [place] [address], documented in this encounter Visit Diagnoses Diagnosis Encounter for other general examination documented in this encounter Care Teams Fur Tailor Relationship Specialty Start Date End Date Ruth Matthews MD [address] [place] [phone] PCP - General Internal Medicine 02/16/25 documented as of this encounter
[2025-02-23 15:53] VITALS: PULSE 91; O2SAT 96
== END 2025-02-23 15:59 | disposition home or self-care (01) ==
LOC: HO.HID 15:22
PROVIDERS: PCP Family Medicine; Visit Provider Internal Medicine
DX: M00.9 Pyogenic arthritis, unspecified (principal); M46.40 Discitis, unspecified, site unspecified; A49.8 Other bacterial infections of unspecified site; R78.81 Bacteremia
CPT/HCPCS: 99213

== ENCOUNTER → 2025-02-23 15:22 | Outpatient (BNVA) | payer MEDICARE, SELFPAY | PROVIDERS: PCP Family Medicine; Visit Provider Internal Medicine | DX: M00.9 Pyogenic arthritis, unspecified (principal); M46.40 Discitis, unspecified, site unspecified; A49.8 Other bacterial infections of unspecified site; R78.81 Bacteremia | CPT/HCPCS: 99212 ==

== ENCOUNTER 2025-03-02 13:44 | Outpatient (AMB) | payer MEDICARE, SELFPAY ==
--- OUTSIDE RECORDS SUMMARY | 2025-03-02 13:48 | XMS_ITS | Encounter Summary ---
Author Organization [facility] Address [address] [place] [address] Care Team Providers Care Lanolin Plant Operator Name Role Phone Ruth Matthews MD Primary Care Provider Encounter Details Date Type Department Care Team (Late st Contact Info) Description 02/19/2025 Lab Requisition [facility] - Main Lab 299 [facility] [place] [address] Ruth Matthews MD [address] [place] [address] Encounter for other general examination Social History [...] CBC auto differential (02/19/2025 6:29 AM EDT) [facility] Signature WBC 6.4 4.8 - 10.8 [...] LAB HEMETOLOGY METHOD 02/19/2025 11:08 AM EDT [facility] Blood Venous blood specimen / Unknown Venipuncture / Unknown 02/19/2025 6:29 AM EDT 02/19/2025 10:04 AM EDT Ruth Matthews MD LAB BLOOD ORDERABLES Final Res ult Performing Organization Address City/[facility]/ZIP Co de Phone Number [facility] [address] [place] [address], [place] [phone] * (ABNORMAL) Sedimentation rate (02/19/2025 6:29 AM EDT) Pathologist [facility] Sed Rate 80(H) 0 - 20 mm/hr LAB HEMETOLOGY METHOD 02/19/2025 11:22 AM EDT [facility] Blood Venous blood specimen / Unknown Venipuncture / Unknown 02/19/2025 6:29 AM EDT 02/19/2025 10:04 AM EDT Ruth Matthews MD LAB BLOOD ORDERABLES Final Res ult Performing Organization Address [facility] Co de Phone Number [facility] [address] [place] [address], [place] [phone] * (ABNORMAL) C-reactive protein (02/19/2025 6:29 AM EDT) C-Reactive Protein 7.99(H) <=0.50 mg/dL LAB CHEMISTRY METHOD 02/19/2025 1:47 PM EDT [facility] Blood Venous blood specimen / Unknown Venipuncture / Unknown 02/19/2025 6:29 AM EDT 02/19/2025 10:04 AM EDT Ruth Matthews MD LAB BLOOD ORDERABLES Final Res ult Performing Organization Address City/[facility]/ZIP Co de Phone Number [facility] [address] [place] [address], [place] [phone] * Creatine kinase (02/19/2025 6:29 AM EDT) [facility] Total CK 149 22 - 269 unit/L LAB CHEMISTRY METHOD 02/19/2025 1:47 PM EDT [facility] Blood Venous blood specimen / Unknown Venipuncture / Unknown 02/19/2025 6:29 AM EDT 02/19/2025 10:04 AM EDT us Ruth Matthews MD LAB BLOOD ORDERABLES Final Res ult [facility] [address] [place] [address], [place] [phone] * (ABNORMAL) Basic metabolic panel (02/19/2025 6:29 AM EDT) [facility] Sodium 127(L) 133 - 145 mmol/L LAB [...] LAB CHEMISTRY METHOD 02/19/2025 1:47 PM T [facility] Glucose 133(H) 70 - 100 mg/dL LAB CHEMISTRY METHOD 02/19/2025 1:47 PM [facility] BUN 20 5 - 25 mg/dL LAB CHEMISTRY METHOD 02/19/2025 1:47 PM [facility] Creatinine 1.08 0.70 - 1.30 mg/dL LAB CHEMISTRY METHOD 02/19/2025 1:47 PM EDT [facility] eGFR 72 >=60 mL/min/1. 73m2 LAB CHEMISTRY METHOD 02/19/2025 1:47 PM EDT [facility] Comment:Calculation based on the??Chronic Kidney Disease Epidemiology Collaboration (CKD-EPI) equation refit??without adjustment for race. BUN/Creatinine Ratio 18.5 LAB CHEMISTRY METHOD 02/19/2025 1:47 PM EDT [facility] Calcium 9.2 8.5 - 10.5 mg/dL LAB CHEMISTRY METHOD 02/19/2025 1:47 PM EDT [facility] Blood Venous blood specimen / Unknown Venipuncture / Unknown 02/19/2025 6:29 AM EDT 02/19/2025 10:04 AM EDT us Ruth Matthews MD LAB BLOOD ORDERABLES Final Res ult [facility] [address] [place] [address], documented in this encounter Visit Diagnoses Diagnosis Encounter for other general examination documented in this encounter Care Teams Lanolin Plant Operator Relationship Specialty Start Date End Date Ruth Matthews MD [address] [place] [phone] PCP - General Internal Medicine 02/16/25 documented as of this encounter
--- OUTSIDE RECORDS SUMMARY | 2025-03-02 13:48 | XMS_ITS | Clinical Summary ---
Author Organization [address] Address [address] [place] [address] Phone Care Team Providers Care Fun House Operator Name Role Phone Ruth Matthews MD Primary Care Provider [phone] Encounters Date Type Department Care Team Description 02/26/2025 Lab Requisition [facility] Lab [address] [place] [address] Ruth Matthews MD Encounter for other general examination 02/24/2025 Lab Requisition [facility] Lab [address] [place] [address] Ruth Matthews MD Encounter for other general examination 02/23/2025 Lab Requisition [facility] Lab [address] [place] [address] Ruth Matthews MD Encounter for other general examination 02/20/2025 Lab Requisition [facility] Lab [address] [place] [address] Ruth Matthews MD Encounter for other general examination 02/20/2025 Lab Requisition [facility] Lab [address] [place] [address] Ruth Matthews MD Encounter for other general examination 02/19/2025 Lab Requisition [facility] Lab [address] [place] [address] Ruth Matthews MD Encounter for other general examination 02/17/2025 Lab Requisition [facility] Lab [address] [place] [address] Ruth Matthews MD Encounter for other general examination 02/17/[address] [facility] Lab [address] [place] [address] Ruth Matthews MD Encounter for other general examination 02/16/[address] [facility] Main Lab [address] [place] [phone] Ruth Matthews MD Encounter for other general [...] Procedure Name Priority Date/Time Associated Diagnosis Comments MAGNESIUM Routine 02/26/2025 5:59 AM EDT Encounter for other general examination CLOSTRIDIUM DIFFICILE TOXIN Routine 02/23/2025 2:10 PM EDT Encounter for other general examination LAVENDER - EDTA Routine 02/23/2025 5:18 AM [...] examination from Last 3 Months Results * Magnesium (02/26/2025 5:59 AM EDT) Only the most recent of3 resultswithin the time period is included. [facility] Magnesium 2.5 1.9 - 2.6 mg/dL LAB CHEMISTRY METHOD 02/26/2025 12:59 PM EDT [facility] Blood Venous blood specimen / Unknown Venipuncture / Unknown 02/26/2025 5:59 AM EDT 02/26/2025 10:55 AM EDT us Ruth Matthews MD LAB BLOOD ORDERABLES Final Res ult Performing Organization Address [facility]/ZIP Co de Phone Number [facility] [address] [place] [address], [place] [phone] * Clostridium difficile toxin (02/23/2025 2:10 PM EDT) [facility] Clostridium difficile GDH Antigen Negative Negative 02/24/2025 10:51 AM EDT [facility] C difficile Toxins A+B, EIA Negative Negative 02/24/2025 10:51 AM EDT [facility] Comment:NEGATIVE FOR TOXIN P RODUCING CLOSTRIDIOIDES DIFFICILE, NO ADDITIONAL TESTING IS NECESSARY. Stool Rectum structure / Unknown 02/23/2025 2:10 PM EDT 02/24/2025 9:42 AM EDT us Ruth Matthews MD LAB MICROBIOLOGY - GENERAL ORD ERABLES Final Result Performing Organization Address City/[facility]/ZIP Co de Phone Number [facility] [address] [place] [address], [place] [phone] * Lavender tube (02/23/2025 5:18 AM EDT) [facility] Extra Tube Hold for add-ons. 02/23/2025 10:01 AM T [facility] Comment:Auto resulted. Blood Venous blood specimen / Unknown Venipuncture / Unknown 02/23/2025 5:18 AM EDT 02/23/2025 8:48 AM EDT us Ruth Matthews MD LAB BLOOD ORDERABLES Final Res ult [facility] [address] [place] [address], [place] [phone] * (ABNORMAL) Basic metabolic panel (02/23/2025 5:18 AM EDT) Only the most recent of2 resultswithin the time period is included. Sodium 129(L) 133 - 145 mmol/L LAB CHEMISTRY METHOD 02/23/2025 10:29 AM [facility] Potassium 4.7 3.5 - 5.5 mmol/L LAB CHEMISTRY METHOD 02/23/2025 10:29 AM [facility] Chloride 94(L) 96 - 110 mmol/L LAB CHEMISTRY METHOD 02/23/2025 10:29 AM [facility] CO2 26 21 - 32 mmol/L LAB CHEMISTRY METHOD 02/23/2025 10:29 AM [facility] Anion Gap 9 3 - 11 LAB CHEMISTRY METHOD 02/23/2025 10:29 AM [facility] Glucose 107(H) 70 - 100 mg/dL LAB CHEMISTRY METHOD 02/23/2025 10:29 AM [facility] BUN 26(H) 5 - 25 mg/dL LAB CHEMISTRY METHOD 02/23/2025 10:29 AM [facility] Creatinine 0.80 0.70 - 1.30 mg/dL LAB CHEMISTRY METHOD 02/23/2025 10:29 AM [facility] eGFR 93 >=60 mL/min/1. 73m2 LAB CHEMISTRY METHOD 02/23/2025 10:29 AM EDT [facility] Comment:Calculation based on the??Chronic Kidney Disease Epidemiology Collaboration (CKD-EPI) equation refit??without adjustment for race. BUN/Creatinine Ratio 32.5 LAB CHEMISTRY METHOD 02/23/2025 10:29 AM EDT [facility] Calcium 9.4 8.5 - 10.5 mg/dL LAB CHEMISTRY METHOD 02/23/2025 10:29 AM EDT [facility] Blood Venous blood specimen / Unknown Venipuncture / Unknown 02/23/2025 5:18 AM EDT 02/23/2025 8:48 AM EDT Ruth Matthews MD LAB BLOOD ORDERABLES Final Res ult Performing Organization Address [facility]/ZIP Co de Phone Number [facility] [address] [place] [address], [place] [phone] * (ABNORMAL) Sodium (02/20/2025 7:07 AM EDT) Sodium 128(L) 133 - 145 mmol/L LAB CHEMISTRY METHOD 02/20/2025 11:24 AM EDT [facility] Blood Venous blood specimen / Unknown Venipuncture / Unknown 02/20/2025 7:07 AM EDT 02/20/2025 9:43 AM EDT Ruth Matthews MD LAB BLOOD ORDERABLES Final Res ult [facility] [address] [place] [address], [place] [phone] * (ABNORMAL) Osmolality, urine (02/20/2025 5:04 AM EDT) Only the most recent of2 resultswithin the time period is included. Osmolality, Urine 188(L) 300 - 1,300 mOsm/kg LAB CHEMISTRY METHOD 02/20/2025 1:42 PM EDT [facility] Urine Urine specimen obtained by clean catch procedure / Unknown Non-blood Collection / Unknown 02/20/2025 5:04 AM EDT 02/20/2025 10:11 AM EDT us Ruth Matthews MD LAB URINE ORDERABLES Final Res ult [facility] [address] [place] [address], [place] [phone] * (ABNORMAL) CBC auto differential (02/19/2025 6:29 AM EDT) Only the most recent of2 resultswithin the time period is included. WBC 6.4 4.8 - 10.8 K/mcL LAB HEMETOLOGY METHOD 02/19/2025 11:08 AM [facility] RBC 3.00(L) 4.50 - 5.50 M/mcL LAB HEMETOLOGY METHOD 02/19/2025 11:08 AM [facility] Hemoglobin 9.1(L) 13.5 - 17.5 g/dL LAB HEMETOLOGY METHOD 02/19/2025 11:08 AM [facility] Hematocrit 28.3(L) 42.0 - 54.0 % LAB HEMETOLOGY METHOD 02/19/2025 11:08 AM [facility] MCV 94.6 79.0 - 98.0 FL LAB HEMETOLOGY METHOD 02/19/2025 11:08 AM [facility] MCH 30.4 27.0 - 32.0 pcg LAB HEMETOLOGY METHOD 02/19/2025 11:08 AM [facility] MCHC 32.2 32.0 - 37.0 g/dL LAB HEMETOLOGY METHOD 02/19/2025 11:08 AM [facility] RDW 14.1 11.0 - 15.0 % LAB HEMETOLOGY METHOD 02/19/2025 11:08 AM [facility] Platelets 591(H) 130 - 400 K/mcL LAB HEMETOLOGY METHOD 02/19/2025 11:08 AM [facility] MPV 9.3 7.0 - 11.0 FL LAB HEMETOLOGY METHOD 02/19/2025 11:08 AM [facility] NRBC 0.0 <1.0 % LAB HEMETOLOGY METHOD 02/19/2025 11:08 AM [facility] NRBC Absolute 0.00 <0.10 K/mcL LAB HEMETOLOGY METHOD 02/19/2025 11:08 AM [facility] Neutrophils Relative 49.1 % LAB HEMETOLOGY METHOD 02/19/2025 11:08 AM [facility] Lymphocytes Relative 21.6 % LAB HEMETOLOGY METHOD 02/19/2025 11:08 AM [facility] Monocytes Relative 23.1 % LAB HEMETOLOGY METHOD 02/19/2025 11:08 AM [facility] Eosinophils Relative 4.9 % LAB HEMETOLOGY METHOD 02/19/2025 11:08 AM [facility] Basophils Relative 1.1 % LAB HEMETOLOGY METHOD 02/19/2025 11:08 AM [facility] Immature Granulocytes Relative 0.2 % LAB HEMETOLOGY METHOD 02/19/2025 11:08 AM [facility] Neutrophils Absolute 3.12 1.50 - 7.00 K/mcL LAB HEMETOLOGY METHOD 02/19/2025 11:08 AM [facility] Lymphocytes Absolute 1.37 1.00 - 5.00 K/mcL LAB HEMETOLOGY METHOD 02/19/2025 11:08 AM [facility] Monocytes Absolute 1.47(H) 0.20 - 1.00 K/mcL LAB HEMETOLOGY METHOD 02/19/2025 11:08 AM EDT [facility] Eosinophils Absolute 0.31 0.00 - 0.50 K/mcL LAB HEMETOLOGY METHOD 02/19/2025 11:08 AM EDT [facility] Basophils Absolute 0.07 0.00 - 0.20 K/mcL LAB HEMETOLOGY METHOD 02/19/2025 11:08 AM EDT [facility] Immature Granulocytes Absolute 0.01 0.00 - 0.03 K/mcL LAB HEMETOLOGY METHOD 02/19/2025 11:08 AM EDT [facility] Blood Venous blood specimen / Unknown Venipuncture / Unknown 02/19/2025 6:29 AM EDT 02/19/2025 10:04 AM EDT Ruth Matthews MD LAB BLOOD ORDERABLES Final Res ult Performing Organization Address City/[facility]/ZIP Co de Phone Number [facility] [address] [place] [address], [place] [phone] * (ABNORMAL) Sedimentation rate (02/19/2025 6:29 AM EDT) Sed Rate 80(H) 0 - 20 mm/hr LAB HEMETOLOGY METHOD 02/19/2025 11:22 AM EDT [facility] Blood Venous blood specimen / Unknown Venipuncture / Unknown 02/19/2025 6:29 AM EDT 02/19/2025 10:04 AM EDT Ruth Matthews MD LAB BLOOD ORDERABLES Final Res ult [facility] [address] [place] [address], [place] [phone] * (ABNORMAL) C-reactive protein (02/19/2025 6:29 AM EDT) Pathologist [facility] C-Reactive Protein 7.99(H) <=0.50 mg/dL LAB CHEMISTRY METHOD 02/19/2025 1:47 PM EDT [facility] Blood Venous blood specimen / Unknown Venipuncture / Unknown 02/19/2025 6:29 AM EDT 02/19/2025 10:04 AM EDT Ruth Matthews MD LAB BLOOD ORDERABLES Final Res ult [facility] [address] [place] [address], [place] [phone] * Creatine kinase (02/19/2025 6:29 AM EDT) Pathologist [facility] Total CK 149 22 - 269 unit/L LAB CHEMISTRY METHOD 02/19/2025 1:47 PM EDT [facility] Blood Venous blood specimen / Unknown Venipuncture / Unknown 02/19/2025 6:29 AM EDT 02/19/2025 10:04 AM EDT Ruth Matthews MD LAB BLOOD ORDERABLES Final Res ult [facility] [address] [place] [address], [place] [phone] * SST tube (02/17/2025 5:51 AM EDT) [facility] Extra Tube Hold for add-ons. 02/17/2025 12:01 PM EDT [facility] Comment:Auto resulted. Blood Venous blood specimen / Unknown 02/17/2025 5:51 AM EDT 02/17/2025 10:38 AM EDT Ruth Matthews MD LAB BLOOD ORDERABLES Final Res ult Performing Organization Address [facility]/ZIP Co de Phone Number [facility] [address] [place] [address], * (ABNORMAL) Osmolality (02/17/2025 5:51 AM EDT) Pathologist [facility] Osmolality Alfredo 274(L) 280 - 300 mOsm/kg LAB CHEMISTRY METHOD 02/17/2025 11:47 AM EDT [facility] Blood Venous blood specimen / Unknown Venipuncture / Unknown 02/17/2025 5:51 AM EDT 02/17/2025 9:33 AM EDT Ruth Matthews MD LAB BLOOD ORDERABLES Final Res ult Performing Organization Address [facility] Co de Phone Number [facility] [address] [place] [address], [place] [phone] * (ABNORMAL) Comprehensive metabolic panel (02/17/2025 5:51 AM EDT) Only the most recent of2 resultswithin the time period is included. [facility] Sodium 128(L) 133 - 145 mmol/L LAB CHEMISTRY METHOD 02/17/2025 11:31 AM T [facility] Potassium 4.4 3.5 - 5.5 mmol/L LAB CHEMISTRY METHOD 02/17/2025 11:31 AM EDT [facility] Chloride 89(L) 96 - 110 mmol/L LAB CHEMISTRY METHOD 02/17/2025 11:31 AM [facility] CO2 33(H) 21 - 32 mmol/L LAB CHEMISTRY METHOD 02/17/2025 11:31 AM [facility] Anion Gap 6 3 - 11 LAB CHEMISTRY METHOD 02/17/2025 11:31 AM [facility] Glucose 126(H) 70 - 100 mg/dL LAB CHEMISTRY METHOD 02/17/2025 11:31 AM [facility] BUN 18 5 - 25 mg/dL LAB CHEMISTRY METHOD 02/17/2025 11:31 AM [facility] Creatinine 0.89 0.70 - 1.30 mg/dL LAB CHEMISTRY METHOD 02/17/2025 11:31 AM [facility] eGFR 90 >=60 mL/min/1. 73m2 LAB CHEMISTRY METHOD 02/17/2025 11:31 AM [facility] Comment:Calculation based on the??Chronic Kidney Disease Epidemiology Collaboration (CKD-EPI) equation refit??without adjustment for race. BUN/Creatinine Ratio 20.2 LAB CHEMISTRY METHOD 02/17/2025 11:31 AM [facility] Calcium 9.1 8.5 - 10.5 mg/dL LAB CHEMISTRY METHOD 02/17/2025 11:31 AM [facility] AST (SGOT) 49(H) 10 - 42 unit/L LAB CHEMISTRY METHOD 02/17/2025 11:31 AM [facility] ALT (SGPT) 73(H) 10 - 60 unit/L LAB CHEMISTRY METHOD 02/17/2025 11:31 AM [facility] Alkaline Phosphatase 178(H) 42 - 121 unit/L LAB CHEMISTRY METHOD 02/17/2025 11:31 AM [facility] Total Protein 6.7 6.0 - 8.0 g/dL LAB CHEMISTRY METHOD 02/17/2025 11:31 AM [facility] Albumin 2.7(L) 3.2 - 5.0 g/dL LAB CHEMISTRY METHOD 02/17/2025 11:31 AM [facility] Total Bilirubin 0.8 0.0 - 1.4 mg/dL LAB CHEMISTRY METHOD 02/17/2025 11:31 AM [facility] Blood Venous blood specimen / Unknown Venipuncture / Unknown 02/17/2025 5:51 AM EDT 02/17/2025 9:33 AM EDT Ruth Matthews MD LAB BLOOD ORDERABLES Final Res ult Performing Organization Address City/[facility]/ZIP Co de Phone Number [facility] [address] [place] [address], [place] [phone] * Sodium, urine, random (02/17/2025 4:00 AM EDT) Sodium, Ur 23 mmol/L LAB CHEMISTRY METHOD 02/17/2025 11:23 AM EDT [facility] Urine Urine specimen obtained by clean catch procedure / Unknown 02/17/2025 4:00 AM EDT 02/17/2025 10:23 AM EDT Ruth Matthews MD LAB URINE ORDERABLES Final Res ult Performing Organization Address City/[facility]/ZIP Co de Phone Number [facility] [address] [place] [address], [place] [phone] * (ABNORMAL) Manual differential (02/16/2025 6:58 AM EDT) [facility] Neutrophils % 63.0 % LAB HEMETOLOGY METHOD 02/16/2025 11:23 AM EDT [facility] Lymphocytes % 13.0 % LAB HEMETOLOGY METHOD 02/16/2025 11:23 AM EDT [facility] Monocytes % 18.0 % LAB HEMETOLOGY METHOD 02/16/2025 11:23 AM EDT [facility] Eosinophils % 4.0 % LAB HEMETOLOGY METHOD 02/16/2025 11:23 AM EDT [facility] Basophils % 1.0 % LAB HEMETOLOGY METHOD 02/16/2025 11:23 AM EDT [facility] Neutrophils Absolute Manual 5.04 1.50 - 7.00 K/mcL LAB HEMETOLOGY METHOD 02/16/2025 11:23 AM EDT [facility] Lymphocytes Absolute 1.04 1.00 - 5.00 K/mcL LAB HEMETOLOGY METHOD 02/16/2025 11:23 AM EDT [facility] Monocytes Absolute Manual 1.44(H) 0.20 - 1.00 K/mcL LAB HEMETOLOGY METHOD 02/16/2025 11:23 AM EDT [facility] Eosinophils Absolute Manual 0.32 0.00 - 0.50 K/mcL LAB HEMETOLOGY METHOD 02/16/2025 11:23 AM EDT [facility] Basophils Absolute Manual 0.08 0.00 - 0.20 K/mcL LAB HEMETOLOGY METHOD 02/16/2025 11:23 AM EDT [facility] Rbc Morphology Present( A) Consistent with indices, Normal for [place] LAB HEMETOLOGY METHOD 02/16/2025 11:23 AM EDT [facility] Platelet Morphology - WAM See Note(A) Normal LAB HEMETOLOGY METHOD 02/16/2025 11:23 AM EDT [facility] Comment:PLT: Normal Polychromasia Present Present( A) (none) LAB HEMETOLOGY METHOD 02/16/2025 11:23 AM [facility] Blood Venous blood specimen / Unknown Venipuncture / Unknown 02/16/2025 6:58 AM EDT 02/16/2025 9:41 AM EDT us Ruth Matthews MD LAB BLOOD ORDERABLES Final Res ult [facility] [address] [place] [address], [place] [phone] from Last 3 Months Insurance [facility] Care Teams Fun House Operator Relationship Specialty Start Date End Date Ruth Matthews MD [address] [place] [address] PCP - General Internal Medicine 02/16/25
--- OUTSIDE RECORDS SUMMARY | 2025-03-02 13:48 | XMS_ITS | Encounter Summary ---
Author Organization [facility] Address [address] [place] [address] Care Team Providers Care Quarter Seamer Name Role Phone Ruth Matthews MD Primary Care Provider [phone] Encounter Details Date Type Department Care Team (Late st Contact Info) Description 02/20/[address] [facility] Lab [address] [place] [address] Ruth Matthews MD [address] [place] [address] Encounter for other general examination Social History [...] LAB CHEMISTRY METHOD 02/20/2025 1:42 PM EDT [facility] Urine Urine specimen obtained by clean catch procedure / Unknown Non-blood Collection / Unknown 02/20/2025 5:04 AM EDT 02/20/2025 10:11 AM EDT us Ruth Matthews MD LAB URINE ORDERABLES Final Res ult [facility] LAB [address] [place] [address], documented in this encounter Visit Diagnoses Diagnosis Encounter for other general examination documented in this encounter Care Teams Quarter Seamer Relationship Specialty Start Date End Date Ruth Matthews MD [address] [place] [address] PCP - General Internal Medicine 02/16/25 documented as of this encounter
--- OUTSIDE RECORDS SUMMARY | 2025-03-02 13:48 | XMS_ITS | Encounter Summary ---
Author Organization [facility] Address [address] [place] [address] Care Team Providers Care Test Facility Engineer Name Role Phone Ruth Matthews MD Primary Care Provider [phone] Encounter Details Date Type Department Care Team (Late st Contact Info) Description 02/23/2025 Lab Requisition [facility] Lab [address] [facility] [place] [address] Ruth Matthews MD [address] [place] [address] Encounter for other general examination Social History [...] Hold for add-ons. 02/23/2025 10:01 AM EDT [facility] Comment:Auto resulted. Blood Venous blood specimen / Unknown Venipuncture / Unknown 02/23/2025 5:18 AM EDT 02/23/2025 8:48 AM EDT Ruth Matthews MD LAB BLOOD ORDERABLES Final Res ult [facility] [address] [place] [address], * (ABNORMAL) Basic metabolic panel (02/23/2025 5:18 AM EDT) Sodium 129(L) 133 - 145 mmol/L LAB CHEMISTRY METHOD 02/23/2025 10:29 AM [facility] Potassium 4.7 3.5 - 5.5 mmol/L LAB CHEMISTRY METHOD 02/23/2025 10:29 AM [facility] Chloride 94(L) 96 - 110 mmol/L LAB CHEMISTRY METHOD 02/23/2025 10:29 AM [facility] CO2 26 21 - 32 mmol/L LAB CHEMISTRY METHOD 02/23/2025 10:29 AM [facility] Anion Gap 9 3 - 11 LAB CHEMISTRY METHOD 02/23/2025 10:29 AM [facility] Glucose 107(H) 70 - 100 mg/dL LAB CHEMISTRY METHOD 02/23/2025 10:29 AM [facility] BUN 26(H) 5 - 25 mg/dL LAB CHEMISTRY METHOD 02/23/2025 10:29 AM [facility] Creatinine 0.80 0.70 - 1.30 mg/dL LAB CHEMISTRY METHOD 02/23/2025 10:29 AM [facility] eGFR 93 >=60 mL/min/1. 73m2 LAB CHEMISTRY METHOD 02/23/2025 10:29 AM [facility] Comment:Calculation based on the??Chronic Kidney Disease Epidemiology Collaboration (CKD-EPI) equation refit??without adjustment for race. BUN/Creatinine Ratio 32.5 LAB CHEMISTRY METHOD 02/23/2025 10:29 AM [facility] Calcium 9.4 8.5 - 10.5 mg/dL LAB CHEMISTRY METHOD 02/23/2025 10:29 AM EDT [facility] Blood Venous blood specimen / Unknown Venipuncture / Unknown 02/23/2025 5:18 AM EDT 02/23/2025 8:48 AM EDT us Ruth Matthews MD LAB BLOOD ORDERABLES Final Res ult [facility] [address] [place] [address], documented in this encounter Visit Diagnoses Diagnosis Encounter for other general examination documented in this encounter Care Teams Test Facility Engineer Relationship Specialty Start Date End Date Ruth Matthews MD [address] [place] [id number] PCP - General Internal Medicine 02/16/25 documented as of this encounter
--- OUTSIDE RECORDS SUMMARY | 2025-03-02 13:48 | XMS_ITS | Encounter Summary ---
Author Organization [facility] Address [address] [place] [address] Care Team Providers Care Market Risk Analyst Name Role Phone Ruth Matthews MD Primary Care Provider Encounter Details Date Type Department Care Team (Late st Contact Info) Description 02/24/2025 Lab Requisition [facility] Lab [address] [facility] [place] [address] Ruth Matthews MD [address] [place] [address] Encounter for other general examination Social History [...] Procedure Name Priority Date/Time Associated Diagnosis Comments CLOSTRIDIUM DIFFICILE TOXIN Routine 02/23/2025 2:10 PM EDT Encounter for other general examination documented in this encounter Results * Clostridium difficile toxin (02/23/2025 2:10 PM EDT) Clostridium difficile GDH Antigen Negative Negative 02/24/2025 10:51 AM EDT [facility] C difficile Toxins A+B, EIA Negative Negative 02/24/2025 10:51 AM EDT [facility] Comment:NEGATIVE FOR TOXIN P RODUCING CLOSTRIDIOIDES DIFFICILE, NO ADDITIONAL TESTING IS NECESSARY. Stool Rectum structure / Unknown 02/23/2025 2:10 PM EDT 02/24/2025 9:42 AM EDT us Ruth Matthews MD LAB MICROBIOLOGY - GENERAL ORD ERABLES Final Result [facility] ([facility] [address] [place] [address], documented in this encounter Visit Diagnoses Diagnosis Encounter for other general examination documented in this encounter Care Teams Market Risk Analyst Relationship Specialty Start Date End Date Ruth Matthews MD [address] [place] [phone] PCP - General Internal Medicine 02/16/25 documented as of this encounter
--- OUTSIDE RECORDS SUMMARY | 2025-03-02 13:48 | XMS_ITS | Encounter Summary ---
Author Organization [facility] Address [address] [place] [address] Care Team Providers Care Scrap Hoist Operator Name Role Phone Ruth Matthews MD Primary Care Provider [phone] Encounter Details Date Type Department Care Team (Late st Contact Info) Description 02/26/2025 Lab Requisition [facility] - Main Lab [address] [place] [address] Ruth Matthwes MD [address] [place] [address] Encounter for other general examination Social History [...] documented in this encounter Results * Magnesium (02/26/2025 5:59 AM EDT) Magnesium 2.5 1.9 - 2.6 mg/dL LAB CHEMISTRY METHOD 02/26/2025 12:59 PM EDT [facility] Blood Venous blood specimen / Unknown Venipuncture / Unknown 02/26/2025 5:59 AM EDT 02/26/2025 10:55 AM EDT us Ruth Matthews MD LAB BLOOD ORDERABLES Final Res ult [facility] [address] [place] [address], documented in this encounter Visit Diagnoses Diagnosis Encounter for other general examination documented in this encounter Care Teams Scrap Hoist Operator Relationship Specialty Start Date End Date Ruth Matthews MD [address] [place] [address] PCP - General Internal Medicine 02/16/25 documented as of this encounter
--- OUTSIDE RECORDS SUMMARY | 2025-03-02 13:48 | XMS_ITS | Encounter Summary ---
Author Organization [facility] Address [address] [place] [address] Care Team Providers Care Genetic Counselor Name Role Phone Ruth Matthews MD Primary Care Provider [phone] Encounter Details Date Type Department Care Team (Late st Contact Info) Description 02/20/2025 Lab Requisition [facility] - Main Lab [address] [place] [address] Ruth Matthews MD [address] [place] [address] Encounter for other general examination Social History [...] LAB CHEMISTRY METHOD 02/20/2025 11:24 AM EDT [facility] ([facility] Blood Venous blood specimen / Unknown Venipuncture / Unknown 02/20/2025 7:07 AM EDT 02/20/2025 9:43 AM EDT Ruth Matthews MD LAB BLOOD ORDERABLES Final Res ult Performing Organization Address [facility]/ZIP Co de Phone Number [facility] [address] [place] [address], * (ABNORMAL) Sodium (02/20/2025 7:07 AM EDT) Sodium 128(L) 133 - 145 mmol/L LAB CHEMISTRY METHOD 02/20/2025 11:24 AM EDT [facility] Blood Venous blood specimen / Unknown Venipuncture / Unknown 02/20/2025 7:07 AM EDT 02/20/2025 9:43 AM EDT Ruth Matthews MD LAB BLOOD ORDERABLES Final Res ult Performing Organization Address [facility] Co de Phone Number [facility] [address] [place] [address], documented in this encounter Visit Diagnoses Diagnosis Encounter for other general examination documented in this encounter Care Teams Genetic Counselor Relationship Specialty Start Date End Date Ruth Matthews MD [address] [place] [address] PCP - General Internal Medicine 02/16/25 documented as of this encounter
--- OUTSIDE RECORDS SUMMARY | 2025-03-02 13:48 | XMS_ITS | Encounter Summary ---
Author Organization [facility] Address [address] [place] [address] Care Team Providers Care Preschool Assistant Name Role Phone Ruth Matthews MD Primary Care Provider [phone] Encounter Details Date Type Department Care Team (Late st Contact Info) Description 02/16/2025 Lab Requisition [facility] - Main Lab 299 [facility] [place] [address] Ruth Matthews MD [address] [place] [address] Encounter for other general examination Social History [...] % LAB HEMETOLOGY METHOD 02/16/2025 11:23 AM [facility] Lymphocytes % 13.0 % LAB HEMETOLOGY METHOD 02/16/2025 11:23 AM [facility] Monocytes % 18.0 % LAB HEMETOLOGY METHOD 02/16/2025 11:23 AM [facility] Eosinophils % 4.0 % LAB HEMETOLOGY METHOD 02/16/2025 11:23 AM [facility] Basophils % 1.0 % LAB HEMETOLOGY METHOD 02/16/2025 11:23 AM [facility] Neutrophils Absolute Manual 5.04 1.50 - 7.00 K/mcL LAB HEMETOLOGY METHOD 02/16/2025 11:23 AM [facility] Lymphocytes Absolute 1.04 1.00 - 5.00 K/mcL LAB HEMETOLOGY METHOD 02/16/2025 11:23 AM [facility] Monocytes Absolute Manual 1.44(H) 0.20 - 1.00 K/mcL LAB HEMETOLOGY METHOD 02/16/2025 11:23 AM [facility] Eosinophils Absolute Manual 0.32 0.00 - 0.50 K/mcL LAB HEMETOLOGY METHOD 02/16/2025 11:23 AM [facility] Basophils Absolute Manual 0.08 0.00 - 0.20 K/mcL LAB HEMETOLOGY METHOD 02/16/2025 11:23 AM [facility] Rbc Morphology Present( A) Consistent with indices, Normal for LAB HEMETOLOGY METHOD 02/16/2025 11:23 AM [facility] Platelet Morphology - WAM See Note(A) Normal LAB HEMETOLOGY METHOD 02/16/2025 11:23 AM [facility] Comment:PLT: Normal Polychromasia Present Present( A) (none) LAB HEMETOLOGY METHOD 02/16/2025 11:[address] [facility] Blood Venous blood specimen / Unknown Venipuncture / Unknown 02/16/2025 6:58 AM EDT 02/16/2025 9:41 AM EDT us Ruth Matthews MD LAB BLOOD ORDERABLES Final Res ult [facility] [address] [place] [address], [place] [phone] * (ABNORMAL) CBC auto differential (02/16/2025 6:58 AM EDT) WBC 8.0 4.8 - 10.8 K/mcL LAB HEMETOLOGY METHOD 02/16/2025 11:23 AM [facility] RBC 2.80(L) 4.50 - 5.50 M/[facility] LAB HEMETOLOGY METHOD 02/16/2025 11:23 AM [facility] Hemoglobin 8.6(L) 13.5 - 17.5 g/dL LAB HEMETOLOGY METHOD 02/16/2025 11:23 AM [facility] Hematocrit 25.9(L) 42.0 - 54.0 % LAB HEMETOLOGY METHOD 02/16/2025 11:23 AM [facility] MCV 92.5 79.0 - 98.0 FL LAB HEMETOLOGY METHOD 02/16/2025 11:23 AM [facility] MCH 30.7 27.0 - 32.0 pcg LAB HEMETOLOGY METHOD 02/16/2025 11:23 AM [facility] MCHC 33.2 32.0 - 37.0 g/dL LAB HEMETOLOGY METHOD 02/16/2025 11:23 AM [facility] RDW 14.3 11.0 - 15.0 % LAB HEMETOLOGY METHOD 02/16/2025 11:[address] [facility] Platelets 570(H) 130 - 400 K/mcL LAB HEMETOLOGY METHOD 02/16/2025 11:[address] [facility] MPV 9.4 7.0 - 11.0 FL LAB HEMETOLOGY METHOD 02/16/2025 11:[address] [facility] NRBC 0.0 <1.0 % LAB HEMETOLOGY METHOD 02/16/2025 11:[address] [facility] NRBC Absolute 0.00 <0.10 K/mcL LAB HEMETOLOGY METHOD 02/16/2025 11:[address] [facility] Blood Venous blood specimen / Unknown Venipuncture / Unknown 02/16/2025 6:58 AM EDT 02/16/2025 9:41 AM EDT Ruth Matthews MD LAB BLOOD ORDERABLES Final Res ult [facility] [address] [place] [address], [place] [phone] * (ABNORMAL) Magnesium (02/16/2025 6:58 AM EDT) Magnesium 1.8(L) 1.9 - 2.6 mg/dL LAB CHEMISTRY METHOD 02/16/2025 11:[address] [facility] Blood Venous blood specimen / Unknown Venipuncture / Unknown 02/16/2025 6:58 AM EDT 02/16/2025 9:41 AM EDT Ruth Matthews MD LAB BLOOD ORDERABLES Final Res ult [facility] [address] [place] [address], [place] [phone] * (ABNORMAL) Comprehensive metabolic panel (02/16/2025 6:58 AM EDT) Sodium 126(L) 133 - 145 mmol/L LAB CHEMISTRY METHOD 02/16/2025 11:10 AM [facility] Potassium 4.7 3.5 - 5.5 mmol/L LAB CHEMISTRY METHOD 02/16/2025 11:10 AM [facility] Chloride 86(L) 96 - 110 mmol/L LAB CHEMISTRY METHOD 02/16/2025 11:10 AM [facility] CO2 30 21 - 32 mmol/L LAB CHEMISTRY METHOD 02/16/2025 11:10 AM [facility] Anion Gap 10 3 - 11 LAB CHEMISTRY METHOD 02/16/2025 11:10 AM [facility] Glucose 184(H) 70 - 100 mg/dL LAB CHEMISTRY METHOD 02/16/2025 11:10 AM [facility] BUN 17 5 - 25 mg/dL LAB CHEMISTRY METHOD 02/16/2025 11:10 AM [facility] Creatinine 0.94 0.70 - 1.30 mg/dL LAB CHEMISTRY METHOD 02/16/2025 11:10 AM [facility] eGFR 86 >=60 mL/min/1. 73m2 LAB CHEMISTRY METHOD 02/16/2025 11:10 AM [facility] Comment:Calculation based on the??Chronic Kidney Disease Epidemiology Collaboration (CKD-EPI) equation refit??without adjustment for race. BUN/Creatinine Ratio 18.1 LAB CHEMISTRY METHOD 02/16/2025 11:10 AM [facility] Calcium 9.2 8.5 - 10.5 mg/dL LAB CHEMISTRY METHOD 02/16/2025 11:10 AM [facility] AST (SGOT) 45(H) 10 - 42 unit/L LAB CHEMISTRY METHOD 02/16/2025 11:[address] [facility] ALT (SGPT) 76(H) 10 - 60 unit/L LAB CHEMISTRY METHOD 02/16/2025 11:[address] [facility] Alkaline Phosphatase 194(H) 42 - 121 unit/L LAB CHEMISTRY METHOD 02/16/2025 11:[address] [facility] Total Protein 7.1 6.0 - 8.0 g/dL LAB CHEMISTRY METHOD 02/16/2025 11:[address] [facility] Albumin 2.7(L) 3.2 - 5.0 g/dL LAB CHEMISTRY METHOD 02/16/2025 11:[address] [facility] Total Bilirubin 1.0 0.0 - 1.4 mg/dL LAB CHEMISTRY METHOD 02/16/2025 11:10 AM [facility] Blood Venous blood specimen / Unknown Venipuncture / Unknown 02/16/2025 6:58 AM EDT 02/16/2025 9:41 AM EDT us Ruth Matthews MD LAB BLOOD ORDERABLES Final Res ult [facility] [address] [place] [address], documented in this encounter Visit Diagnoses Diagnosis Encounter for other general examination documented in this encounter Care Teams Preschool Assistant Relationship Specialty Start Date End Date Ruth Matthews MD [address] [place] [phone] PCP - General Internal Medicine 02/16/25 documented as of this encounter
--- OUTSIDE RECORDS SUMMARY | 2025-03-02 13:48 | XMS_ITS | Encounter Summary ---
Author Organization [facility] [address] Address [address] [place] [address] Care Team Providers Care Tent Worker Name Role Phone Ruth Matthews MD Primary Care Provider Encounter Details Date Type Department Care Team (Late st Contact Info) Description 02/17/2025 Lab Requisition [facility] - Main Lab [address] [place] [address] Ruth Matthews MD [address] [place] [address] Encounter for other general examination Social History [...] Hold for add-ons. 02/17/2025 12:01 PM EDT [facility] ([facility] Comment:Auto resulted. Blood Venous blood specimen / Unknown 02/17/2025 5:51 AM EDT 02/17/2025 10:38 AM EDT us Ruth Matthews MD LAB BLOOD ORDERABLES Final Res ult Performing Organization Address City/[facility]/ZIP Co de Phone Number [facility] [address] [place] [address], [place] [phone] * (ABNORMAL) Osmolality (02/17/2025 5:51 AM EDT) [facility] Osmolality Alfredo 274(L) 280 - 300 mOsm/kg LAB CHEMISTRY METHOD 02/17/2025 11:47 AM EDT [facility] Blood Venous blood specimen / Unknown Venipuncture / Unknown 02/17/2025 5:51 AM EDT 02/17/2025 9:33 AM EDT us Ruth Matthews MD LAB BLOOD ORDERABLES Final Res ult Performing Organization Address [facility] Co de Phone Number [facility] [address] [place] [address], [place] [phone] * (ABNORMAL) Comprehensive metabolic panel (02/17/2025 5:51 AM EDT) [facility] Sodium 128(L) 133 - 145 mmol/L LAB CHEMISTRY METHOD 02/17/2025 11:31 AM T [facility] Potassium 4.4 3.5 - 5.5 mmol/L LAB CHEMISTRY METHOD 02/17/2025 11:31 AM EDT [facility] Chloride 89(L) 96 - 110 mmol/L LAB CHEMISTRY METHOD 02/17/2025 11:31 AM EDT [facility] CO2 33(H) 21 - 32 mmol/L LAB CHEMISTRY METHOD 02/17/2025 11:31 AM T [facility] Anion Gap 6 3 - 11 LAB CHEMISTRY METHOD 02/17/2025 11:31 AM EDT [facility] Glucose 126(H) 70 - 100 mg/dL LAB CHEMISTRY METHOD 02/17/2025 11:31 AM [facility] BUN 18 5 - 25 mg/dL LAB CHEMISTRY METHOD 02/17/2025 11:31 AM [facility] Creatinine 0.89 0.70 - 1.30 mg/dL LAB CHEMISTRY METHOD 02/17/2025 11:31 AM [facility] eGFR 90 >=60 mL/min/1. 73m2 LAB CHEMISTRY METHOD 02/17/2025 11:31 AM [facility] Comment:Calculation based on the??Chronic Kidney Disease Epidemiology Collaboration (CKD-EPI) equation refit??without adjustment for race. BUN/Creatinine Ratio 20.2 LAB CHEMISTRY METHOD 02/17/2025 11:31 AM [facility] Calcium 9.1 8.5 - 10.5 mg/dL LAB CHEMISTRY METHOD 02/17/2025 11:31 AM [facility] AST (SGOT) 49(H) 10 - 42 unit/L LAB CHEMISTRY METHOD 02/17/2025 11:31 AM [facility] ALT (SGPT) 73(H) 10 - 60 unit/L LAB CHEMISTRY METHOD 02/17/2025 11:31 AM [facility] Alkaline Phosphatase 178(H) 42 - 121 unit/L LAB CHEMISTRY METHOD 02/17/2025 11:31 AM [facility] Total Protein 6.7 6.0 - 8.0 g/dL LAB CHEMISTRY METHOD 02/17/2025 11:31 AM [facility] Albumin 2.7(L) 3.2 - 5.0 g/dL LAB CHEMISTRY METHOD 02/17/2025 11:31 AM [facility] Total Bilirubin 0.8 0.0 - 1.4 mg/dL LAB CHEMISTRY METHOD 02/17/2025 11:31 AM [facility] Blood Venous blood specimen / Unknown Venipuncture / Unknown 02/17/2025 5:51 AM EDT 02/17/2025 9:33 AM EDT Ruth Matthews MD LAB BLOOD ORDERABLES Final Res ult [facility] ([facility]) [facility] [address] [place] [address], documented in this encounter Visit Diagnoses Diagnosis Encounter for other general examination documented in this encounter Care Teams Tent Worker Relationship Specialty Start Date End Date Ruth Matthews MD [address] [place] [phone] PCP - General Internal Medicine 02/16/25 documented as of this encounter
--- NOTE | 2025-03-02 13:49 | HO.SPINEOV ---
Intake Visit Reasons: follow up after hospitalization Intake Note: Mr. Casarez is here today to F/u after hospitalization. Brand Marketing Manager Required: No Allergies sulfamethoxazole [From Bactrim] Allergy (Severe, Verified 03/02/25 13:51) Itching trimethoprim [From Bactrim] Allergy (Severe, Verified 03/02/25 13:51) Itching tizanidine Adverse Reaction (Severe, Verified 03/02/25 13:51) Weakness Assessment & Plan Assessment & Plan (1) Enterococcus faecalis infection: Code(s): A49.8 - Other bacterial infections of unspecified site Category: Medical Plan Mr Casarez is coming in today for a postoperative visit. He underwent an L4-5 laminotomy and ultimately developed a wound infection 1-2 weeks later with Enterococcus faecalis. 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 He has been on ertapenem now for few weeks. He has wound care at the house after he left the rehab and reports back that the nurses are continuing to see slow signs of healing from the deeper parts of the wound. They are putting less packing in each day. He is not having any active purulent drainage. No fevers. No back pain or leg pain to report. On exam he is able to stand up with a walker, navigate independently, his upper part of his incision has a very small opening maybe a cm in diameter. There is packing in place which I did not remove. The wound edges do not show any signs of inflammation or infection. He is following with Infectious Disease and will be on antibiotics through the end of the month. Dr. Fox saw the patient with me, we think he is healing up nicely, we would like to see him back in 2 weeks to re-evaluate the wound. Sunil Fox MD, PhD [facility] Coding Level of Care Code Global (70609) Diagnoses Enterococcus faecalis infection A49.8
== END 2025-03-02 14:19 | disposition home or self-care (01) ==
LOC: HO.HNS 13:44
PROVIDERS: PCP Family Medicine; Visit Provider Physician Assistant
DX: A49.8 Other bacterial infections of unspecified site (principal)
CPT/HCPCS: 99024

== ENCOUNTER → 2025-03-02 13:44 | Outpatient (BNVA) | payer MEDICARE, SELFPAY | PROVIDERS: PCP Family Medicine; Visit Provider Physician Assistant | DX: Z09 Encounter for follow-up examination after completed treatment for conditions other than malignant neoplasm (principal); Z87.39 Personal history of other diseases of the musculoskeletal system and connective tissue | CPT/HCPCS: 99212 ==

== ENCOUNTER 2025-03-09 14:51 | Outpatient (AMB) | payer MEDICARE, SELFPAY ==
--- OUTSIDE RECORDS SUMMARY | 2025-03-09 14:53 | XMS_ITS | Encounter Summary ---
Author Organization [facility] Address [address] [place] [address] Care Team Providers Care Office Machine Servicer Apprentice Name Role Phone Ruth Matthews MD Primary Care Provider [phone] Encounter Details Date Type Department Care Team (Late st Contact Info) Description 02/20/2025 Lab Requisition [facility] - Main Lab [address] [place] [address] Ruth Matthews MD [address] [place] [address] Encounter for other general examination Social History [...] LAB CHEMISTRY METHOD 02/20/2025 1:42 PM EDT [facility] ([facility] Urine Urine specimen obtained by clean catch procedure / Unknown Non-blood Collection / Unknown 02/20/2025 5:04 AM EDT 02/20/2025 10:11 AM EDT us Ruth Matthews MD LAB URINE ORDERABLES Final Res ult [facility] ([facility] [address] [place] [address], documented in this encounter Visit Diagnoses Diagnosis Encounter for other general examination documented in this encounter Care Teams Office Machine Servicer Apprentice Relationship Specialty Start Date End Date Ruth Matthews MD [address] [place] [phone] PCP - General Internal Medicine 02/16/25 documented as of this encounter
--- OUTSIDE RECORDS SUMMARY | 2025-03-09 14:53 | XMS_ITS | Encounter Summary ---
Author Organization [facility] Address [address] [place] [address] Care Team Providers Care Neuro Psych Sales Specialist Name Role Phone Ruth Matthews MD Primary Care Provider [phone] Encounter Details Date Type Department Care Team (Late st Contact Info) Description 02/24/2025 Lab Requisition [facility] - Main Lab [address] [facility] [place] [address] Ruth Matthews MD [address] [place] [address] Encounter for other general examination Social History [...] Antigen Negative Negative 02/24/2025 10:51 AM EDT [facility] C difficile Toxins A+B, EIA Negative Negative 02/24/2025 10:51 AM EDT [facility] Comment:NEGATIVE FOR TOXIN P RODUCING CLOSTRIDIOIDES DIFFICILE, NO ADDITIONAL TESTING IS NECESSARY. Stool Rectum structure / Unknown 02/23/2025 2:10 PM EDT 02/24/2025 9:42 AM EDT us Ruth Matthews MD LAB MICROBIOLOGY - GENERAL ORD ERABLES Final Result [facility] ([facility]) [facility] [address] [place] [address], documented in this encounter Visit Diagnoses Diagnosis Encounter for other general examination documented in this encounter Care Teams Neuro Psych Sales Specialist Relationship Specialty Start Date End Date Ruth Matthews MD [address] [place] [address] PCP - General Internal Medicine 02/16/25 documented as of this encounter
--- OUTSIDE RECORDS SUMMARY | 2025-03-09 14:53 | XMS_ITS | Encounter Summary ---
Author Organization [facility] Address [address] [place] [address] Care Team Providers Care Outpatient Services Director Name Role Phone Ruth Matthews MD Primary Care Provider [phone] Encounter Details Date Type Department Care Team (Late st Contact Info) Description 02/23/2025 Lab Requisition [facility] - Main Lab 299 [facility] [place] [address] Ruth Matthews MD [address] [place] [address] Encounter for other general examination Social History [...] Hold for add-ons. 02/23/2025 10:[address] [facility] ([facility] Comment:Auto resulted. Blood Venous blood specimen / Unknown Venipuncture / Unknown 02/23/2025 5:18 AM EDT 02/23/2025 8:48 AM EDT Ruth Matthews MD LAB BLOOD ORDERABLES Final Res ult [facility] [address] [place] [address], * (ABNORMAL) Basic metabolic panel (02/23/2025 5:18 AM EDT) Sodium 129(L) 133 - 145 mmol/L LAB CHEMISTRY METHOD 02/23/2025 10:29 AM [facility] Potassium 4.7 3.5 - 5.5 mmol/L LAB CHEMISTRY METHOD 02/23/2025 10:29 AM [facility] Chloride 94(L) 96 - 110 mmol/L LAB CHEMISTRY METHOD 02/23/2025 10:29 AM [facility] CO2 26 21 - 32 mmol/L LAB CHEMISTRY METHOD 02/23/2025 10:29 AM [facility] Anion Gap 9 3 - 11 LAB CHEMISTRY METHOD 02/23/2025 10:29 AM [facility] Glucose 107(H) 70 - 100 mg/dL LAB CHEMISTRY METHOD 02/23/2025 10:29 AM [facility] BUN 26(H) 5 - 25 mg/dL LAB CHEMISTRY METHOD 02/23/2025 10:29 AM [facility] Creatinine 0.80 0.70 - 1.30 mg/dL LAB CHEMISTRY METHOD 02/23/2025 10:29 AM [facility] eGFR 93 >=60 mL/min/1. 73m2 LAB CHEMISTRY METHOD 02/23/2025 10:29 AM [facility] Comment:Calculation based on the??Chronic Kidney Disease Epidemiology Collaboration (CKD-EPI) equation refit??without adjustment for race. BUN/Creatinine Ratio 32.5 LAB CHEMISTRY METHOD 02/23/2025 10:29 AM [facility] Calcium 9.4 8.5 - 10.5 mg/dL LAB CHEMISTRY METHOD 02/23/2025 10:29 AM EDT [facility] Blood Venous blood specimen / Unknown Venipuncture / Unknown 02/23/2025 5:18 AM EDT 02/23/2025 8:48 AM EDT us Ruth Matthews MD LAB BLOOD ORDERABLES Final Res ult [facility] [address] [place] [address], documented in this encounter Visit Diagnoses Diagnosis Encounter for other general examination documented in this encounter Care Teams Outpatient Services Director Relationship Specialty Start Date End Date Ruth Matthews MD [address] [place] [phone] PCP - General Internal Medicine 02/16/25 documented as of this encounter
--- OUTSIDE RECORDS SUMMARY | 2025-03-09 14:53 | XMS_ITS | Encounter Summary ---
Author Organization [facility] Address [address] [place] [address] Care Team Providers Care Automobile Body Worker Name Role Phone Ruth Matthews MD Primary Care Provider [phone] Encounter Details Date Type Department Care Team (Late st Contact Info) Description 02/26/2025 Lab Requisition [facility] - Main Lab [address] [place] [address] Ruth Matthews MD [address] [place] [address] Encounter for other general examination Social History [...] LAB CHEMISTRY METHOD 02/26/2025 12:[address] [facility] Blood Venous blood specimen / Unknown Venipuncture / Unknown 02/26/2025 5:59 AM EDT 02/26/2025 10:55 AM EDT us Ruth Matthews MD LAB BLOOD ORDERABLES Final Res ult [facility] [address] [place] [address], documented in this encounter Visit Diagnoses Diagnosis Encounter for other general examination documented in this encounter Care Teams Automobile Body Worker Relationship Specialty Start Date End Date Ruth Matthews MD [address] [place] [phone] PCP - General Internal Medicine 02/16/25 documented as of this encounter
--- OUTSIDE RECORDS SUMMARY | 2025-03-09 14:54 | XMS_ITS | Encounter Summary ---
Author Organization [facility] Address [address] [place] [address] Care Team Providers Care Library Aide Name Role Phone Ruth Matthews MD Primary Care Provider Encounter Details Date Type Department Care Team (Late st Contact Info) Description 02/17/2025 Lab Requisition [facility] - Main Lab [address] [place] [address] Ruth Matthews MD [address] [place] [phone] Encounter for other general examination Social History [...] Hold for add-ons. 02/17/2025 12:01 PM EDT [facility] ([facility] Comment:Auto resulted. Blood Venous blood specimen / Unknown 02/17/2025 5:51 AM EDT 02/17/2025 10:38 AM EDT us Ruth Matthews MD LAB BLOOD ORDERABLES Final Res ult Performing Organization Address City/[facility]/ZIP Co de Phone Number [facility] [address] [place] [address], [place] [phone] * (ABNORMAL) Osmolality (02/17/2025 5:51 AM EDT) [facility] Osmolality Alfredo 274(L) 280 - 300 mOsm/kg LAB CHEMISTRY METHOD 02/17/2025 11:47 AM EDT [facility] Blood Venous blood specimen / Unknown Venipuncture / Unknown 02/17/2025 5:51 AM EDT 02/17/2025 9:33 AM EDT us Ruth Matthews MD LAB BLOOD ORDERABLES Final Res ult Performing Organization Address [facility] Co de Phone Number [facility] [address] [place] [address], [place] [phone] * (ABNORMAL) Comprehensive metabolic panel (02/17/2025 5:51 AM EDT) [facility] Sodium 128(L) 133 - 145 mmol/L LAB CHEMISTRY METHOD 02/17/2025 11:31 AM T [facility] Potassium 4.4 3.5 - 5.5 mmol/L LAB CHEMISTRY METHOD 02/17/2025 11:31 AM EDT [facility] Chloride 89(L) 96 - 110 mmol/L LAB CHEMISTRY METHOD 02/17/2025 11:31 AM EDT [facility] CO2 33(H) 21 - 32 mmol/L LAB CHEMISTRY METHOD 02/17/2025 11:31 AM T [facility] Anion Gap 6 3 - 11 LAB CHEMISTRY METHOD 02/17/2025 11:31 AM EDT [facility] Glucose 126(H) 70 - 100 mg/dL LAB CHEMISTRY METHOD 02/17/2025 11:31 AM [facility] BUN 18 5 - 25 mg/dL LAB CHEMISTRY METHOD 02/17/2025 11:31 AM [facility] Creatinine 0.89 0.70 - 1.30 mg/dL LAB CHEMISTRY METHOD 02/17/2025 11:31 AM [facility] LAB eGFR 90 >=60 mL/min/1. 73m2 LAB CHEMISTRY METHOD 02/17/2025 11:31 AM [facility] LAB Comment:Calculation based on the??Chronic Kidney Disease Epidemiology Collaboration (CKD-EPI) equation refit??without adjustment for race. BUN/Creatinine Ratio 20.2 LAB CHEMISTRY METHOD 02/17/2025 11:31 AM [facility] Calcium 9.1 8.5 - 10.5 mg/dL LAB CHEMISTRY METHOD 02/17/2025 11:31 AM [facility] AST (SGOT) 49(H) 10 - 42 unit/L LAB CHEMISTRY METHOD 02/17/2025 11:31 AM [facility] ALT (SGPT) 73(H) 10 - 60 unit/L LAB CHEMISTRY METHOD 02/17/2025 11:31 AM [facility] Alkaline Phosphatase 178(H) 42 - 121 unit/L LAB CHEMISTRY METHOD 02/17/2025 11:31 AM [facility] Total Protein 6.7 6.0 - 8.0 g/dL LAB CHEMISTRY METHOD 02/17/2025 11:31 AM [facility] Albumin 2.7(L) 3.2 - 5.0 g/dL LAB CHEMISTRY METHOD 02/17/2025 11:31 AM [facility] Total Bilirubin 0.8 0.0 - 1.4 mg/dL LAB CHEMISTRY METHOD 02/17/2025 11:31 AM [facility] Blood Venous blood specimen / Unknown Venipuncture / Unknown 02/17/2025 5:51 AM EDT 02/17/2025 9:33 AM EDT Ruth Matthews MD LAB BLOOD ORDERABLES Final Res ult [facility] ([facility]) [facility] [address] [place] [address], documented in this encounter Visit Diagnoses Diagnosis Encounter for other general examination documented in this encounter Care Teams Library Aide Relationship Specialty Start Date End Date Ruth Matthews MD [address] [place] [phone] PCP - General Internal Medicine 02/16/25 documented as of this encounter
--- OUTSIDE RECORDS SUMMARY | 2025-03-09 14:54 | XMS_ITS | Encounter Summary ---
Author Organization [facility] Address [address] [place] [address] Care Team Providers Care Tie Knitter Helper Name Role Phone Ruth Matthews MD Primary Care Provider [phone] Encounter Details Date Type Department Care Team (Late st Contact Info) Description 02/20/2025 Lab Requisition [facility] - Main Lab [address] [place] [address] Ruth Matthews MD [address] [place] [phone] Encounter for other general examination Social History [...] LAB CHEMISTRY METHOD 02/20/2025 11:24 AM EDT [facility] Blood Venous blood specimen / Unknown Venipuncture / Unknown 02/20/2025 7:07 AM EDT 02/20/2025 9:43 AM EDT Ruth Matthews MD LAB BLOOD ORDERABLES Final Res ult Performing Organization Address [facility]/ZIP Co de Phone Number [facility] [address] [place] [address], * (ABNORMAL) Sodium (02/20/2025 7:07 AM EDT) Sodium 128(L) 133 - 145 mmol/L LAB CHEMISTRY METHOD 02/20/2025 11:24 AM EDT [facility] Blood Venous blood specimen / Unknown Venipuncture / Unknown 02/20/2025 7:07 AM EDT 02/20/2025 9:43 AM EDT Ruth Matthews MD LAB BLOOD ORDERABLES Final Res ult Performing Organization Address [facility] Co de Phone Number [facility] [address] [place] [address], documented in this encounter Visit Diagnoses Diagnosis Encounter for other general examination documented in this encounter Care Teams Tie Knitter Helper Relationship Specialty Start Date End Date Ruth Matthews MD [address] [place] [phone] PCP - General Internal Medicine 02/16/25 documented as of this encounter
--- OUTSIDE RECORDS SUMMARY | 2025-03-09 14:54 | XMS_ITS | Encounter Summary ---
Author Organization [facility] Address [address] [place] [address] Care Team Providers Care Environmental Economist Name Role Phone Ruth Matthews MD Primary Care Provider Encounter Details Date Type Department Care Team (Late st Contact Info) Description 02/19/2025 Lab Requisition [facility] - Main Lab [address] [facility] [place] [address] Ruth Matthews MD [address] [place] [phone] Encounter for other general examination Social History [...] CBC auto differential (02/19/2025 6:29 AM EDT) [facility] Signature WBC 6.4 4.8 - 10.8 K/mcL LAB HEMETOLOGY METHOD 02/19/2025 11:08 AM [facility] RBC 3.00(L) 4.50 - 5.50 M/mcL LAB HEMETOLOGY METHOD 02/19/2025 11:08 AM [facility] Hemoglobin 9.1(L) 13.5 - 17.5 g/dL LAB HEMETOLOGY METHOD 02/19/2025 11:08 AM [facility] Hematocrit 28.3(L) 42.0 - 54.0 % LAB HEMETOLOGY METHOD 02/19/2025 11:08 AM [facility] MCV 94.6 79.0 - 98.0 [...] 11:08 AM [facility] Neutrophils Absolute 3.12 1.50 - 7.00 K/mcL LAB HEMETOLOGY METHOD 02/19/2025 11:08 AM [facility] Lymphocytes Absolute 1.37 1.00 - 5.00 K/mcL LAB HEMETOLOGY METHOD 02/19/2025 11:08 AM [facility] Monocytes Absolute 1.47(H) 0.20 - 1.00 K/mcL LAB HEMETOLOGY METHOD 02/19/2025 11:08 AM [facility] Eosinophils Absolute 0.31 0.00 - 0.50 K/mcL LAB HEMETOLOGY METHOD 02/19/2025 11:08 AM [facility] Basophils Absolute 0.07 0.00 - 0.20 K/mcL LAB HEMETOLOGY METHOD 02/19/2025 11:08 AM [facility] Immature Granulocytes Absolute 0.01 0.00 - 0.03 K/mcL LAB HEMETOLOGY METHOD 02/19/2025 11:08 AM EDT [facility] Blood Venous blood specimen / Unknown Venipuncture / Unknown 02/19/2025 6:29 AM EDT 02/19/2025 10:04 AM EDT Ruth Matthews MD LAB BLOOD ORDERABLES Final Res ult Performing Organization Address City/[facility]/ZIP Co de Phone Number [facility] [address] [place] [address], [place] [phone] * (ABNORMAL) Sedimentation rate (02/19/2025 6:29 AM EDT) Pathologist [facility] Sed Rate 80(H) 0 - 20 mm/hr LAB HEMETOLOGY METHOD 02/19/2025 11:22 AM EDT [facility] Blood Venous blood specimen / Unknown Venipuncture / Unknown 02/19/2025 6:29 AM EDT 02/19/2025 10:04 AM EDT Ruth Matthews MD LAB BLOOD ORDERABLES Final Res ult Performing Organization Address [facility] Co de Phone Number [facility] [address] [place] [address], [place] [phone] * (ABNORMAL) C-reactive protein (02/19/2025 6:29 AM EDT) C-Reactive Protein 7.99(H) <=0.50 mg/dL LAB CHEMISTRY METHOD 02/19/2025 1:47 PM EDT [facility] Blood Venous blood specimen / Unknown Venipuncture / Unknown 02/19/2025 6:29 AM EDT 02/19/2025 10:04 AM EDT Ruth Matthews MD LAB BLOOD ORDERABLES Final Res ult Performing Organization Address City/[facility]/ZIP Co de Phone Number [facility] [address] [place] [address], [place] [phone] * Creatine kinase (02/19/2025 6:29 AM EDT) [facility] Total CK 149 22 - 269 unit/L LAB CHEMISTRY METHOD 02/19/2025 1:47 PM EDT [facility] Blood Venous blood specimen / Unknown Venipuncture / Unknown 02/19/2025 6:29 AM EDT 02/19/2025 10:04 AM EDT us Ruth Matthews MD LAB BLOOD ORDERABLES Final Res ult [facility] [address] [place] [address], [place] [phone] * (ABNORMAL) Basic metabolic panel (02/19/2025 6:29 AM EDT) [facility] Sodium 127(L) 133 - 145 mmol/L LAB CHEMISTRY METHOD 02/19/2025 1:47 PM [facility] Potassium 4.7 3.5 - 5.5 mmol/L LAB CHEMISTRY METHOD 02/19/2025 1:47 PM [facility] Chloride 91(L) 96 - 110 mmol/L LAB CHEMISTRY METHOD 02/19/2025 1:47 PM [facility] CO2 23 21 - 32 mmol/L LAB CHEMISTRY METHOD 02/19/2025 1:47 PM [facility] Anion Gap 13(H) 3 - 11 LAB CHEMISTRY METHOD 02/19/2025 1:47 PM T [facility] Glucose 133(H) 70 - 100 mg/dL LAB CHEMISTRY METHOD 02/19/2025 1:47 PM [facility] BUN 20 5 - 25 mg/dL LAB CHEMISTRY METHOD 02/19/2025 1:47 PM [facility] Creatinine 1.08 0.70 - 1.30 mg/dL LAB CHEMISTRY METHOD 02/19/2025 1:47 PM EDT [facility] eGFR 72 >=60 mL/min/1. 73m2 LAB CHEMISTRY METHOD 02/19/2025 1:47 PM EDT [facility] LAB Comment:Calculation based on the??Chronic Kidney Disease Epidemiology Collaboration (CKD-EPI) equation refit??without adjustment for race. BUN/Creatinine Ratio 18.5 LAB CHEMISTRY METHOD 02/19/2025 1:47 PM EDT [facility] Calcium 9.2 8.5 - 10.5 mg/dL LAB CHEMISTRY METHOD 02/19/2025 1:47 PM EDT [facility] Blood Venous blood specimen / Unknown Venipuncture / Unknown 02/19/2025 6:29 AM EDT 02/19/2025 10:04 AM EDT us Ruth Matthews MD LAB BLOOD ORDERABLES Final Res ult [facility] [address] [place] [address], documented in this encounter Visit Diagnoses Diagnosis Encounter for other general examination documented in this encounter Care Teams Environmental Economist Relationship Specialty Start Date End Date Ruth Matthews MD [address] [place] [phone] PCP - General Internal Medicine 02/16/25 documented as of this encounter
--- OUTSIDE RECORDS SUMMARY | 2025-03-09 14:54 | XMS_ITS | Encounter Summary ---
Author Organization [facility] Address [address] [place] [address] Care Team Providers Care Steel Layer Name Role Phone Ruth Matthews MD Primary Care Provider [phone] Encounter Details Date Type Department Care Team (Late st Contact Info) Description 02/17/2025 Lab Requisition [facility] - Main Lab [address] [facility] [place] [address] Ruth Matthews MD [address] [place] [phone] Encounter for other general examination Social History [...] LAB CHEMISTRY METHOD 02/17/2025 11:38 AM EDT [facility] ([facility]) [facility] Urine Urine specimen obtained by clean catch procedure / Unknown 02/17/2025 4:00 AM EDT 02/17/2025 10:23 AM EDT us Ruth Matthews MD LAB URINE ORDERABLES Final Res ult Performing Organization Address [facility]/ZIP Co de Phone Number [facility] [address] [place] [address], [place] [phone] * Sodium, urine, random (02/17/2025 4:00 AM EDT) Sodium, Ur 23 mmol/L LAB CHEMISTRY METHOD 02/17/2025 11:23 AM EDT [facility] Urine Urine specimen obtained by clean catch procedure / Unknown 02/17/2025 4:00 AM EDT 02/17/2025 10:23 AM EDT us Ruth Matthews MD LAB URINE ORDERABLES Final Res ult Performing Organization Address [facility] Co de Phone Number [facility] [address] [place] [address], [place] [phone] documented in this encounter Visit Diagnoses Diagnosis Encounter for other general examination documented in this encounter Care Teams Steel Layer Relationship Specialty Start Date End Date Ruth Matthews MD [address] [place] [phone] PCP - General Internal Medicine 02/16/25 documented as of this encounter
--- OUTSIDE RECORDS SUMMARY | 2025-03-09 14:54 | XMS_ITS | Clinical Summary ---
Author Organization [address] Address [address] [place] [address] Phone Care Team Providers Care Mental Health Consultant Name Role Phone Ruth Matthews MD Primary Care Provider [phone] Encounters Date Type Department Care Team Description 02/26/2025 Lab Requisition [facility] Lab [address] [place] [address] Ruth Matthews MD Encounter for other general examination 02/24/2025 Lab Requisition [facility] Lab [address] [place] [address] Ruth Matthews MD Encounter for other general examination 02/23/2025 Lab Requisition [facility] Lab [address] [place] [address] Ruth Matthews MD Encounter for other general examination 02/20/2025 Lab Requisition [facility] Lab [address] [place] [address] Ruth Matthews MD Encounter for other general examination 02/20/2025 Lab Requisition [facility] Lab [address] [place] [address] Ruth Matthews MD Encounter for other general examination 02/19/2025 Lab Requisition [facility] Lab [address] [place] [address] Ruth Matthews MD Encounter for other general examination 02/17/2025 Lab Requisition [facility] Lab [address] [place] [address] Ruth Matthews MD Encounter for other general examination 02/17/2025 Lab Requisition [facility] [address] [place] [address] Ruth Matthews MD Encounter for other general examination 02/16/2025 Lab Requisition [facility] Lab [address] [place] [id number] Ruth Matthews MD Encounter for other general [...] of3 resultswithin the time period is included. [facility] Magnesium 2.5 1.9 - 2.6 mg/dL LAB CHEMISTRY METHOD 02/26/2025 12:59 PM EDT [facility] Blood Venous blood specimen / Unknown Venipuncture / Unknown 02/26/2025 5:59 AM EDT 02/26/2025 10:55 AM EDT us Ruth Matthews MD LAB BLOOD ORDERABLES Final Res ult Performing Organization Address [facility]/ZIP Co de Phone Number [facility] [address] [place] [address], [place] [phone] * Clostridium difficile toxin (02/23/2025 2:10 PM EDT) [facility] Clostridium difficile GDH Antigen Negative Negative 02/24/2025 10:51 AM EDT [facility] C difficile Toxins A+B, EIA Negative Negative 02/24/2025 10:51 AM EDT [facility] Comment:NEGATIVE FOR TOXIN P RODUCING CLOSTRIDIOIDES DIFFICILE, NO ADDITIONAL TESTING IS NECESSARY. Stool Rectum structure / Unknown 02/23/2025 2:10 PM EDT 02/24/2025 9:42 AM EDT us Ruth Matthews MD LAB MICROBIOLOGY - GENERAL ORD ERABLES Final Result Performing Organization Address City/[facility]/ZIP Co de Phone Number [facility] [address] [place] [address], [place] [phone] * Lavender tube (02/23/2025 5:18 AM EDT) [facility] Extra Tube Hold for add-ons. 02/23/2025 10:01 AM T [facility] Comment:Auto resulted. Blood Venous blood specimen / Unknown Venipuncture / Unknown 02/23/2025 5:18 AM EDT 02/23/2025 8:48 AM EDT us Ruth Matthews MD LAB BLOOD ORDERABLES Final Res ult [facility] [address] [place] [address], [place] [phone] * (ABNORMAL) Basic metabolic panel (02/23/2025 5:18 AM EDT) Only the most recent of2 resultswithin the time period is included. Sodium 129(L) 133 - 145 mmol/L LAB CHEMISTRY METHOD 02/23/2025 10:29 AM [facility] Potassium 4.7 3.5 - 5.5 mmol/L LAB CHEMISTRY METHOD 02/23/2025 10:29 AM [facility] Chloride 94(L) 96 - 110 mmol/L LAB CHEMISTRY METHOD 02/23/2025 10:29 AM [facility] CO2 26 21 - 32 mmol/L LAB CHEMISTRY METHOD 02/23/2025 10:29 AM [facility] Anion Gap 9 3 - 11 LAB CHEMISTRY METHOD 02/23/2025 10:29 AM [facility] Glucose 107(H) 70 - 100 mg/dL LAB CHEMISTRY METHOD 02/23/2025 10:29 AM [facility] BUN 26(H) 5 - 25 mg/dL LAB CHEMISTRY METHOD 02/23/2025 10:29 AM [facility] Creatinine 0.80 0.70 - 1.30 mg/dL LAB CHEMISTRY METHOD 02/23/2025 10:29 AM [facility] eGFR 93 >=60 mL/min/1. 73m2 LAB CHEMISTRY METHOD 02/23/2025 10:29 AM EDT [facility] Comment:Calculation based on the??Chronic Kidney Disease Epidemiology Collaboration (CKD-EPI) equation refit??without adjustment for race. BUN/Creatinine Ratio 32.5 LAB CHEMISTRY METHOD 02/23/2025 10:29 AM EDT [facility] Calcium 9.4 8.5 - 10.5 mg/dL LAB CHEMISTRY METHOD 02/23/2025 10:29 AM EDT [facility] Blood Venous blood specimen / Unknown Venipuncture / Unknown 02/23/2025 5:18 AM EDT 02/23/2025 8:48 AM EDT Ruth Matthews MD LAB BLOOD ORDERABLES Final Res ult Performing Organization Address [facility]/ZIP Co de Phone Number [facility] [address] [place] [address], [place] [phone] * (ABNORMAL) Sodium (02/20/2025 7:07 AM EDT) Sodium 128(L) 133 - 145 mmol/L LAB CHEMISTRY METHOD 02/20/2025 11:24 AM EDT [facility] Blood Venous blood specimen / Unknown Venipuncture / Unknown 02/20/2025 7:07 AM EDT 02/20/2025 9:43 AM EDT Ruth Matthews MD LAB BLOOD ORDERABLES Final Res ult [facility] [address] [place] [address], [place] [phone] * (ABNORMAL) Osmolality, urine (02/20/2025 5:04 AM EDT) Only the most recent of2 resultswithin the time period is included. Osmolality, Urine 188(L) 300 - 1,300 mOsm/kg LAB CHEMISTRY METHOD 02/20/2025 1:42 PM EDT [facility] Urine Urine specimen obtained by clean catch procedure / Unknown Non-blood Collection / Unknown 02/20/2025 5:04 AM EDT 02/20/2025 10:11 AM EDT us Ruth Matthews MD LAB URINE ORDERABLES Final Res ult [facility] [address] [place] [address], [place] [phone] * (ABNORMAL) CBC auto differential (02/19/2025 6:29 AM EDT) Only the most recent of2 resultswithin the time period is included. WBC 6.4 4.8 - 10.8 K/mcL LAB HEMETOLOGY METHOD 02/19/2025 11:08 AM [facility] RBC 3.00(L) 4.50 - 5.50 M/mcL LAB HEMETOLOGY METHOD 02/19/2025 11:08 AM [facility] Hemoglobin 9.1(L) 13.5 - 17.5 g/dL LAB HEMETOLOGY METHOD 02/19/2025 11:08 AM [facility] Hematocrit 28.3(L) 42.0 - 54.0 % LAB HEMETOLOGY METHOD 02/19/2025 11:08 AM [facility] MCV 94.6 79.0 - 98.0 FL LAB HEMETOLOGY METHOD 02/19/2025 11:08 AM [facility] MCH 30.4 27.0 - 32.0 pcg LAB HEMETOLOGY METHOD 02/19/2025 11:08 AM [facility] MCHC 32.2 32.0 - 37.0 g/dL LAB HEMETOLOGY METHOD 02/19/2025 11:08 AM [facility] RDW 14.1 11.0 - 15.0 % LAB HEMETOLOGY METHOD 02/19/2025 11:08 AM [facility] Platelets 591(H) 130 - 400 K/mcL LAB HEMETOLOGY METHOD 02/19/2025 11:08 AM [facility] MPV 9.3 7.0 - 11.0 FL LAB HEMETOLOGY METHOD 02/19/2025 11:08 AM [facility] NRBC 0.0 <1.0 % LAB HEMETOLOGY METHOD 02/19/2025 11:08 AM [facility] NRBC Absolute 0.00 <0.10 K/mcL LAB HEMETOLOGY METHOD 02/19/2025 11:08 AM [facility] Neutrophils Relative 49.1 % LAB HEMETOLOGY METHOD 02/19/2025 11:08 AM [facility] Lymphocytes Relative 21.6 % LAB HEMETOLOGY METHOD 02/19/2025 11:08 AM [facility] Monocytes Relative 23.1 % LAB HEMETOLOGY METHOD 02/19/2025 11:08 AM [facility] Eosinophils Relative 4.9 % LAB HEMETOLOGY METHOD 02/19/2025 11:08 AM [facility] Basophils Relative 1.1 % LAB HEMETOLOGY METHOD 02/19/2025 11:08 AM [facility] Immature Granulocytes Relative 0.2 % LAB HEMETOLOGY METHOD 02/19/2025 11:08 AM [facility] Neutrophils Absolute 3.12 1.50 - 7.00 K/mcL LAB HEMETOLOGY METHOD 02/19/2025 11:08 AM [facility] Lymphocytes Absolute 1.37 1.00 - 5.00 K/mcL LAB HEMETOLOGY METHOD 02/19/2025 11:08 AM [facility] Monocytes Absolute 1.47(H) 0.20 - 1.00 K/mcL LAB HEMETOLOGY METHOD 02/19/2025 11:08 AM EDT [facility] Eosinophils Absolute 0.31 0.00 - 0.50 K/mcL LAB HEMETOLOGY METHOD 02/19/2025 11:08 AM EDT [facility] Basophils Absolute 0.07 0.00 - 0.20 K/mcL LAB HEMETOLOGY METHOD 02/19/2025 11:08 AM EDT [facility] Immature Granulocytes Absolute 0.01 0.00 - 0.03 K/mcL LAB HEMETOLOGY METHOD 02/19/2025 11:08 AM EDT [facility] Blood Venous blood specimen / Unknown Venipuncture / Unknown 02/19/2025 6:29 AM EDT 02/19/2025 10:04 AM EDT Ruth Matthews MD LAB BLOOD ORDERABLES Final Res ult Performing Organization Address City/[facility]/ZIP Co de Phone Number [facility] [address] [place] [address], [place] [phone] * (ABNORMAL) Sedimentation rate (02/19/2025 6:29 AM EDT) Sed Rate 80(H) 0 - 20 mm/hr LAB HEMETOLOGY METHOD 02/19/2025 11:22 AM EDT [facility] Blood Venous blood specimen / Unknown Venipuncture / Unknown 02/19/2025 6:29 AM EDT 02/19/2025 10:04 AM EDT Ruth Matthews MD LAB BLOOD ORDERABLES Final Res ult [facility] [address] [place] [address], [place] [phone] * (ABNORMAL) C-reactive protein (02/19/2025 6:29 AM EDT) Pathologist [facility] C-Reactive Protein 7.99(H) <=0.50 mg/dL LAB CHEMISTRY METHOD 02/19/2025 1:47 PM EDT [facility] Blood Venous blood specimen / Unknown Venipuncture / Unknown 02/19/2025 6:29 AM EDT 02/19/2025 10:04 AM EDT Ruth Matthews MD LAB BLOOD ORDERABLES Final Res ult [facility] [address] [place] [address], [place] [phone] * Creatine kinase (02/19/2025 6:29 AM EDT) Pathologist [facility] Total CK 149 22 - 269 unit/L LAB CHEMISTRY METHOD 02/19/2025 1:47 PM EDT [facility] Blood Venous blood specimen / Unknown Venipuncture / Unknown 02/19/2025 6:29 AM EDT 02/19/2025 10:04 AM EDT Ruth Matthews MD LAB BLOOD ORDERABLES Final Res ult [facility] [address] [place] [address], [place] [phone] * SST tube (02/17/2025 5:51 AM EDT) [facility] Extra Tube Hold for add-ons. 02/17/2025 12:01 PM EDT [facility] Comment:Auto resulted. Blood Venous blood specimen / Unknown 02/17/2025 5:51 AM EDT 02/17/2025 10:38 AM EDT Ruth Matthews MD LAB BLOOD ORDERABLES Final Res ult Performing Organization Address [facility]/ZIP Co de Phone Number [facility] [address] [place] [address], * (ABNORMAL) Osmolality (02/17/2025 5:51 AM EDT) Pathologist [facility] Osmolality Alfredo 274(L) 280 - 300 mOsm/kg LAB CHEMISTRY METHOD 02/17/2025 11:47 AM EDT [facility] Blood Venous blood specimen / Unknown Venipuncture / Unknown 02/17/2025 5:51 AM EDT 02/17/2025 9:33 AM EDT Ruth Matthews MD LAB BLOOD ORDERABLES Final Res ult Performing Organization Address [facility]/[place] Co de Phone Number [facility] [address] [place] [address], [place] [phone] * (ABNORMAL) Comprehensive metabolic panel (02/17/2025 5:51 AM EDT) Only the most recent of2 resultswithin the time period is included. [facility] Sodium 128(L) 133 - 145 mmol/L LAB CHEMISTRY METHOD 02/17/2025 11:31 AM T [facility] Potassium 4.4 3.5 - 5.5 mmol/L LAB CHEMISTRY METHOD 02/17/2025 11:31 AM EDT [facility] Chloride 89(L) 96 - 110 mmol/L LAB CHEMISTRY METHOD 02/17/2025 11:31 AM [facility] CO2 33(H) 21 - 32 mmol/L LAB CHEMISTRY METHOD 02/17/2025 11:31 AM [facility] Anion Gap 6 3 - 11 LAB CHEMISTRY METHOD 02/17/2025 11:31 AM [facility] Glucose 126(H) 70 - 100 mg/dL LAB CHEMISTRY METHOD 02/17/2025 11:31 AM [facility] BUN 18 5 - 25 mg/dL LAB CHEMISTRY METHOD 02/17/2025 11:31 AM [facility] Creatinine 0.89 0.70 - 1.30 mg/dL LAB CHEMISTRY METHOD 02/17/2025 11:31 AM [facility] eGFR 90 >=60 mL/min/1. 73m2 LAB CHEMISTRY METHOD 02/17/2025 11:31 AM [facility] Comment:Calculation based on the??Chronic Kidney Disease Epidemiology Collaboration (CKD-EPI) equation refit??without adjustment for race. BUN/Creatinine Ratio 20.2 LAB CHEMISTRY METHOD 02/17/2025 11:31 AM [facility] Calcium 9.1 8.5 - 10.5 mg/dL LAB CHEMISTRY METHOD 02/17/2025 11:31 AM [facility] AST (SGOT) 49(H) 10 - 42 unit/L LAB CHEMISTRY METHOD 02/17/2025 11:31 AM [facility] ALT (SGPT) 73(H) 10 - 60 unit/L LAB CHEMISTRY METHOD 02/17/2025 11:31 AM [facility] Alkaline Phosphatase 178(H) 42 - 121 unit/L LAB CHEMISTRY METHOD 02/17/2025 11:31 AM [facility] Total Protein 6.7 6.0 - 8.0 g/dL LAB CHEMISTRY METHOD 02/17/2025 11:31 AM [facility] Albumin 2.7(L) 3.2 - 5.0 g/dL LAB CHEMISTRY METHOD 02/17/2025 11:31 AM [facility] Total Bilirubin 0.8 0.0 - 1.4 mg/dL LAB CHEMISTRY METHOD 02/17/2025 11:31 AM [facility] Blood Venous blood specimen / Unknown Venipuncture / Unknown 02/17/2025 5:51 AM EDT 02/17/2025 9:33 AM EDT Ruth Matthews MD LAB BLOOD ORDERABLES Final Res ult Performing Organization Address City/[facility]/ZIP Co de Phone Number [facility] [address] [place] [address], [place] [phone] * Sodium, urine, random (02/17/2025 4:00 AM EDT) Sodium, Ur 23 mmol/L LAB CHEMISTRY METHOD 02/17/2025 11:23 AM EDT [facility] Urine Urine specimen obtained by clean catch procedure / Unknown 02/17/2025 4:00 AM EDT 02/17/2025 10:23 AM EDT Ruth Matthews MD LAB URINE ORDERABLES Final Res ult Performing Organization Address City/[facility]/ZIP Co de Phone Number [facility] [address] [place] [address], [place] [phone] * (ABNORMAL) Manual differential (02/16/2025 6:58 AM EDT) [facility] Neutrophils % 63.0 % LAB HEMETOLOGY METHOD 02/16/2025 11:23 AM EDT [facility] Lymphocytes % 13.0 % LAB HEMETOLOGY METHOD 02/16/2025 11:23 AM EDT [facility] Monocytes % 18.0 % LAB HEMETOLOGY METHOD 02/16/2025 11:23 AM EDT [facility] Eosinophils % 4.0 % LAB HEMETOLOGY METHOD 02/16/2025 11:23 AM EDT [facility] Basophils % 1.0 % LAB HEMETOLOGY METHOD 02/16/2025 11:23 AM EDT [facility] Neutrophils Absolute Manual 5.04 1.50 - 7.00 K/mcL LAB HEMETOLOGY METHOD 02/16/2025 11:23 AM EDT [facility] Lymphocytes Absolute 1.04 1.00 - 5.00 K/mcL LAB HEMETOLOGY METHOD 02/16/2025 11:23 AM EDT [facility] Monocytes Absolute Manual 1.44(H) 0.20 - 1.00 K/mcL LAB HEMETOLOGY METHOD 02/16/2025 11:23 AM EDT [facility] Eosinophils Absolute Manual 0.32 0.00 - 0.50 K/mcL LAB HEMETOLOGY METHOD 02/16/2025 11:23 AM EDT [facility] Basophils Absolute Manual 0.08 0.00 - 0.20 K/mcL LAB HEMETOLOGY METHOD 02/16/2025 11:23 AM EDT [facility] Rbc Morphology Present( A) Consistent with indices, Normal for LAB HEMETOLOGY METHOD 02/16/2025 11:23 AM EDT [facility] Platelet Morphology - WAM See Note(A) Normal LAB HEMETOLOGY METHOD 02/16/2025 11:23 AM EDT [facility] Comment:PLT: Normal Polychromasia Present Present( A) (none) LAB HEMETOLOGY METHOD 02/16/2025 11:23 AM [facility] Blood Venous blood specimen / Unknown Venipuncture / Unknown 02/16/2025 6:58 AM EDT 02/16/2025 9:41 AM EDT us Ruth Matthews MD LAB BLOOD ORDERABLES Final Res ult [facility] [address] [place] [address], [place] [phone] from Last 3 Months Insurance [facility] Care Teams Mental Health Consultant Relationship Specialty Start Date End Date Ruth Matthews MD [address] [place] [id number] PCP - General Internal Medicine 02/16/25
--- OUTSIDE RECORDS SUMMARY | 2025-03-09 14:54 | XMS_ITS | Encounter Summary ---
Author Organization [facility] Address [address] [place] [address] Care Team Providers Care Youth Specialist Name Role Phone Ruth Matthews MD Primary Care Provider [phone] Encounter Details Date Type Department Care Team (Late st Contact Info) Description 02/16/2025 Lab Requisition [facility] [address] [facility] [place] [address] Ruth Matthews MD [address] [place] [phone] Encounter for other general examination Social History [...] % LAB HEMETOLOGY METHOD 02/16/2025 11:23 AM [facility] Lymphocytes % 13.0 % LAB HEMETOLOGY METHOD 02/16/2025 11:23 AM [facility] Monocytes % 18.0 % LAB HEMETOLOGY METHOD 02/16/2025 11:23 AM [facility] Eosinophils % 4.0 % LAB HEMETOLOGY METHOD 02/16/2025 11:23 AM [facility] Basophils % 1.0 % LAB HEMETOLOGY METHOD 02/16/2025 11:23 AM [facility] Neutrophils Absolute Manual 5.04 1.50 - 7.00 K/mcL LAB HEMETOLOGY METHOD 02/16/2025 11:23 AM [facility] Lymphocytes Absolute 1.04 1.00 - 5.00 K/mcL LAB HEMETOLOGY METHOD 02/16/2025 11:23 AM [facility] Monocytes Absolute Manual 1.44(H) 0.20 - 1.00 K/mcL LAB HEMETOLOGY METHOD 02/16/2025 11:23 AM [facility] Eosinophils Absolute Manual 0.32 0.00 - 0.50 K/mcL LAB HEMETOLOGY METHOD 02/16/2025 11:23 AM [facility] Basophils Absolute Manual 0.08 0.00 - 0.20 K/mcL LAB HEMETOLOGY METHOD 02/16/2025 11:23 AM [facility] Rbc Morphology Present( A) Consistent with indices, Normal for LAB HEMETOLOGY METHOD 02/16/2025 11:23 AM [facility] Platelet Morphology - WAM See Note(A) Normal LAB HEMETOLOGY METHOD 02/16/2025 11:23 AM [facility] Comment:PLT: Normal Polychromasia Present Present( A) (none) LAB HEMETOLOGY METHOD 02/16/2025 11:23 AM T [facility] Blood Venous blood specimen / Unknown Venipuncture / Unknown 02/16/2025 6:58 AM EDT 02/16/2025 9:41 AM EDT us Ruth Matthews MD LAB BLOOD ORDERABLES Final Res ult [facility] [address] [place] [address], [place] [phone] * (ABNORMAL) CBC auto differential (02/16/2025 6:58 AM EDT) WBC 8.0 4.8 - 10.8 K/mcL LAB HEMETOLOGY METHOD 02/16/2025 11:23 AM [facility] RBC 2.80(L) 4.50 - 5.50 M/[facility] LAB HEMETOLOGY METHOD 02/16/2025 11:23 AM [facility] Hemoglobin 8.6(L) 13.5 - 17.5 g/dL LAB HEMETOLOGY METHOD 02/16/2025 11:23 AM [facility] Hematocrit 25.9(L) 42.0 - 54.0 % LAB HEMETOLOGY METHOD 02/16/2025 11:23 AM [facility] MCV 92.5 79.0 - 98.0 FL LAB HEMETOLOGY METHOD 02/16/2025 11:23 AM [facility] MCH 30.7 27.0 - 32.0 pcg LAB HEMETOLOGY METHOD 02/16/2025 11:23 AM [facility] MCHC 33.2 32.0 - 37.0 g/dL LAB HEMETOLOGY METHOD 02/16/2025 11:23 AM [facility] RDW 14.3 11.0 - 15.0 % LAB HEMETOLOGY METHOD 02/16/2025 11:23 AM EDT [facility] Platelets 570(H) 130 - 400 K/mcL LAB HEMETOLOGY METHOD 02/16/2025 11:23 AM EDT [facility] MPV 9.4 7.0 - 11.0 FL LAB HEMETOLOGY METHOD 02/16/2025 11:23 AM EDT [facility] NRBC 0.0 <1.0 % LAB HEMETOLOGY METHOD 02/16/2025 11:23 AM EDT [facility] NRBC Absolute 0.00 <0.10 K/mcL LAB HEMETOLOGY METHOD 02/16/2025 11:23 AM EDT [facility] Blood Venous blood specimen / Unknown Venipuncture / Unknown 02/16/2025 6:58 AM EDT 02/16/2025 9:41 AM EDT Ruth Matthews MD LAB BLOOD ORDERABLES Final Res ult [facility] [address] [place] [address], [place] [phone] * (ABNORMAL) Magnesium (02/16/2025 6:58 AM EDT) Magnesium 1.8(L) 1.9 - 2.6 mg/dL LAB CHEMISTRY METHOD 02/16/2025 11:08 AM EDT [facility] Blood Venous blood specimen / Unknown Venipuncture / Unknown 02/16/2025 6:58 AM EDT 02/16/2025 9:41 AM EDT Ruth Matthews MD LAB BLOOD ORDERABLES Final Res ult [facility] [address] [place] [address], [place] [phone] * (ABNORMAL) Comprehensive metabolic panel (02/16/2025 6:58 AM EDT) Sodium 126(L) 133 - 145 mmol/L LAB CHEMISTRY METHOD 02/16/2025 11:10 AM [facility] Potassium 4.7 3.5 - 5.5 mmol/L LAB CHEMISTRY METHOD 02/16/2025 11:10 AM [facility] Chloride 86(L) 96 - 110 mmol/L LAB CHEMISTRY METHOD 02/16/2025 11:10 AM [facility] CO2 30 21 - 32 mmol/L LAB CHEMISTRY METHOD 02/16/2025 11:10 AM [facility] Anion Gap 10 3 - 11 LAB CHEMISTRY METHOD 02/16/2025 11:10 AM [facility] Glucose 184(H) 70 - 100 mg/dL LAB CHEMISTRY METHOD 02/16/2025 11:10 AM [facility] BUN 17 5 - 25 mg/dL LAB CHEMISTRY METHOD 02/16/2025 11:10 AM [facility] Creatinine 0.94 0.70 - 1.30 mg/dL LAB CHEMISTRY METHOD 02/16/2025 11:10 AM [facility] eGFR 86 >=60 mL/min/1. 73m2 LAB CHEMISTRY METHOD 02/16/2025 11:10 AM [facility] Comment:Calculation based on the??Chronic Kidney Disease Epidemiology Collaboration (CKD-EPI) equation refit??without adjustment for race. BUN/Creatinine Ratio 18.1 LAB CHEMISTRY METHOD 02/16/2025 11:10 AM [facility] Calcium 9.2 8.5 - 10.5 mg/dL LAB CHEMISTRY METHOD 02/16/2025 11:10 AM [facility] AST (SGOT) 45(H) 10 - 42 unit/L LAB CHEMISTRY METHOD 02/16/2025 11:10 AM EDT [facility] ALT (SGPT) 76(H) 10 - 60 unit/L LAB CHEMISTRY METHOD 02/16/2025 11:10 AM EDT [facility] Alkaline Phosphatase 194(H) 42 - 121 unit/L LAB CHEMISTRY METHOD 02/16/2025 11:10 AM T [facility] Total Protein 7.1 6.0 - 8.0 g/dL LAB CHEMISTRY METHOD 02/16/2025 11:10 AM T [facility] Albumin 2.7(L) 3.2 - 5.0 g/dL LAB CHEMISTRY METHOD 02/16/2025 11:10 AM T [facility] Total Bilirubin 1.0 0.0 - 1.4 mg/dL LAB CHEMISTRY METHOD 02/16/2025 11:10 AM [facility] Blood Venous blood specimen / Unknown Venipuncture / Unknown 02/16/2025 6:58 AM EDT 02/16/2025 9:41 AM EDT us Ruth Matthews MD LAB BLOOD ORDERABLES Final Res ult [facility] [address] [place] [address], documented in this encounter Visit Diagnoses Diagnosis Encounter for other general examination documented in this encounter Care Teams Youth Specialist Relationship Specialty Start Date End Date Ruth [place] MD [address] [place] [phone] PCP - General Internal Medicine 02/16/25 documented as of this encounter
--- NOTE | 2025-03-09 14:58 | MHC.OFFVIS ---
Intake Visit Reasons: [facility] reff/Sepsis lumbar wound approve by Dr. Vilchis Allergies sulfamethoxazole [From Bactrim] Allergy (Severe, Verified 03/02/25 13:51) Itching trimethoprim [From Bactrim] Allergy (Severe, Verified 03/02/25 13:51) Itching tizanidine Adverse Reaction (Severe, Verified 03/02/25 13:51) Weakness HPI HPI [facility] reff/Sepsis lumbar wound approve by Dr. Vilchis: Details: He is taking Daptomycin and is done on 03/25. He has no problems. [facility] Medical History Insulin dependent type 2 diabetes mellitus Alcohol use disorder Elevated troponin Postoperative back pain Acute febrile illness Hx: UTI (urinary tract infection) GIO (obstructive sleep apnea) HLD (hyperlipidemia) BPH (benign prostatic hyperplasia) Back pain Asthma Alcohol abuse Adverse effect of anesthetic CAD (coronary artery disease) Hypothyroidism Diabetes Peripheral neuropathy HTN (hypertension) Spinal stenosis Surgical History Hx of aortic valve replacement History of tonsillectomy and adenoidectomy Hx of colonoscopy (2024) History of open reduction and internal fixation (ORIF) procedure (~2021) Hx of CABG (~2018) Aortic valve replaced (~2018) History of cardiac cath (07/28/17) History of right hip replacement (08/13/17) Social History Household Members: Spouse and Family Housing: House Are you a primary customer care agent to a significant other at home: No Do you presently have visiting nurse or other home services: Yes Patient Tobacco Use Status: Never used Tobacco e-Cigarette/Vaping Use: Never Used Second Hand Smoke Exposure: No service: No Current occupational status: employed 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 Linezolid for couple weeks after. Code(s): M00.9 - Pyogenic arthritis, unspecified Category: Medical Plan: na Orders: Orders IR cvc remove any age Today M00.9 - Pyogenic arthritis, unspecified Coding Level of Care Code Tele New Pt Level 3 (91780) Diagnoses Septic arthritis M00.9
== END 2025-03-09 14:52 | disposition home or self-care (01) ==
LOC: HO.HID 14:51
PROVIDERS: PCP Family Medicine; Visit Provider Internal Medicine
DX: M00.9 Pyogenic arthritis, unspecified (principal)
CPT/HCPCS: 99213

== ENCOUNTER → 2025-03-09 14:51 | Outpatient (BNVA) | payer MEDICARE, SELFPAY | PROVIDERS: PCP Family Medicine; Visit Provider Internal Medicine ==

== ENCOUNTER 2025-03-16 13:30 | Outpatient (AMB) | payer MEDICARE, SELFPAY ==
--- OUTSIDE RECORDS SUMMARY | 2025-03-16 13:33 | XMS_ITS | Encounter Summary ---
Author Organization [facility] Address [address] [place] [address] Care Team Providers Care Grievance And Appeals Coordinator Name Role Phone Ruth Matthews MD Primary Care Provider Encounter Details Date Type Department Care Team (Late st Contact Info) Description 02/24/2025 Lab Requisition [facility] - Main Lab 299 [facility] [place] [address] Ruth Matthews MD [address] [place] [phone] Encounter for other general examination Social History [...] Antigen Negative Negative 02/24/2025 10:51 AM EDT [facility] C difficile Toxins A+B, EIA Negative Negative 02/24/2025 10:51 AM EDT [facility] Comment:NEGATIVE FOR TOXIN P RODUCING CLOSTRIDIOIDES DIFFICILE, NO ADDITIONAL TESTING IS NECESSARY. Stool Rectum structure / Unknown 02/23/2025 2:10 PM EDT 02/24/2025 9:42 AM EDT us Ruth Matthews MD LAB MICROBIOLOGY - GENERAL ORD ERABLES Final Result [facility] ([facility] HOSPITAL LAB [address] [place] [address], documented in this encounter Visit Diagnoses Diagnosis Encounter for other general examination documented in this encounter Care Teams Grievance And Appeals Coordinator Relationship Specialty Start Date End Date Ruth Matthews MD [address] [place] [id number] PCP - General Internal Medicine 02/16/25 documented as of this encounter
--- NOTE | 2025-03-16 13:36 | HO.SPINEOV ---
Intake Visit Reasons: 2 week follow up Intake Note: Mr. Casarez is here today for his 2 week f/u and Wound check. Rotational Moulding Operator Required: No Allergies sulfamethoxazole [From Bactrim] Allergy (Severe, Verified 03/02/25 13:51) Itching trimethoprim [From Bactrim] Allergy (Severe, Verified 03/02/25 13:51) Itching tizanidine Adverse Reaction (Severe, Verified 03/02/25 13:51) Weakness Assessment & Plan Assessment & Plan (1) Septic arthritis: Comment: Stop Daptomycin on 03/25. Linezolid for couple weeks after. Code(s): M00.9 - Pyogenic arthritis, unspecified Category: Medical Plan Mr Casarez is here in follow-up. He has been getting treatments done on his wound with the packing. He tells me that they are putting less unless in every week. He had a follow up with last week, labs are currently pending. He has been afebrile. The plan is to come off the daptomycin on March 25 and then do a few weeks of linezolid. Unfortunately the pain going down his right leg that he had before surgery has come back. It is quite intense at this time. He has no real back pain to speak of. On exam he is still walking with a walker and has an antalgic gait. But his wound seems to be healing up nicely there is a very small opening at the top with a small amount of packing. The wound edges are not red, there is no signs of inflammation. We had a lengthy discussion about his infection again, I reviewed his MRI done in the hospital with him. We need to double check on his ESR and CRP and make sure it is coming down. He is curious about surgery to fix the leg pain again. At the time surgery we noticed he developed a grade 1-2 spondylolisthesis when we put him on the Jef table. Our suspicion is that he may need a lumbar fusion but obviously this can not be done in the setting of any potential infection. Dr. Fox was like to get a lumbar MRI with and without rosalina 0 just to double check on the status of the infection and to evaluate for any residual nerve compression. I will order this and we can see him back in the office after it is completed. Sunil Fox MD, PhD [facility] Orders: Orders MR lumbar spine wo/w con Today M00.9 - Pyogenic arthritis, unspecified Coding Level of Care Code Global (60919) Diagnoses Septic arthritis M00.9
== END 2025-03-16 14:34 | disposition home or self-care (01) ==
LOC: HO.HNS 13:31
PROVIDERS: PCP Family Medicine; Visit Provider Physician Assistant
DX: M00.9 Pyogenic arthritis, unspecified (principal)
CPT/HCPCS: 99024

== ENCOUNTER → 2025-03-16 13:30 | Outpatient (BNVA) | payer MEDICARE, SELFPAY | PROVIDERS: PCP Family Medicine; Visit Provider Physician Assistant | DX: M00.9 Pyogenic arthritis, unspecified (principal); Z47.89 Encounter for other orthopedic aftercare; Z98.890 Other specified postprocedural states | CPT/HCPCS: 99212 ==

== ENCOUNTER 2025-03-27 08:13 | Outpatient (REF) | payer MEDICARE, SELFPAY ==
--- NOTE | ~2025-03-27 | MR_ITS ---
CLINICAL HISTORY: M00.9 - Pyogenic arthritis, unspecified MR lumbar spine without contrast. COMPARISON: None FINDINGS: There is diffuse enhancement of the posterior paraspinal soft tissues at L4-5. No organizing or drainable fluid collection identified within the soft tissues. There is increased T2 signal and enhancement within the posterior elements/spinous processes at L3, L4 and L5 with mild enhancement of the pars interarticularis at L4 and L5 on the left. Small fluid collection present within the spinous process at L4 measuring 1.1 x 1.2 x 0.4 cm. There is enhancement of the posterior epidural soft tissues at extending from L3 through L5 with mass effect upon the underlying thecal sac. Fluid present within the facet joints at L4-5 on the left. Focal area of the enhancement along the sacroiliac joint on the right measuring approximately 1.1 x 0.7 cm. There is mild enhancement of the sacroiliac joints bilaterally. Grade 1 anterolisthesis of L4 on L5. No pars defects identified. Compression fracture of the L2 vertebral body on the right with approximately 75 percent height loss. Schmorl's node at the superior endplate of L3. Modic type 2 degenerative endplate changes at L1-L2, L2-3 and L3-4. The conus terminates at superior endplate of L2 and is otherwise unremarkable. L5-S1: Desiccation of the disc. Mild posterior disc bulge. Facet joint arthrosis. Mild bilateral neural foraminal narrowing. L4-L5: Posterior disc uncovering measuring 7 mm. Facet joint arthrosis. Severe left and mild right neural foraminal narrowing. Severe thecal sac compression measuring 6 mm. L3-L4: Desiccation of the disc. Loss of disc space height. Mild posterior disc bulge measuring 3 mm. Facet joint arthrosis. Moderate bilateral neural foraminal narrowing. Moderate thecal sac compression measuring 7 mm. L2-L3: Anterior marginal osteophytes. Desiccation of the disc. Loss of disc space height. Mild posterior disc bulge measuring 4 mm. Facet joint arthrosis. Xuphiocw-[id number]-swyzkm right and mild left neural foraminal narrowing. Severe spinal canal stenosis at this level measuring 5 mm. L1-L2: Anterior marginal osteophytes. Loss of disc space height. Posterior osteophyte present. Mild right neural foraminal narrowing. IMPRESSION: 1. Enhancement of the posterior epidural soft tissues from L3 through L5 with question posterior epidural phlegmon present at the L3-4 and L4-5 levels causing severe compression of the thecal sac at L4-5 and moderate compression at L3-4. 2. Enhancement of the posterior elements at L3, L4 and L5 consistent with osteomyelitis. Fluid collection present within the L4 spinous process may represent interosseous abscess. 3. Mild enhancement of the sacroiliac joint space bilaterally with mild focal enhancement along the right aspect of the sacrum adjacent to the sacroiliac joint suspicious for sacroiliitis. 4. Facet joint synovitis present at L4 on the left. 5. Severe spinal canal stenosis at L2-3 compression of the thecal sac at L4-5. Moderate compression of the thecal sac at L3-4. 6. Advanced multilevel degenerative changes of the lumbar spine. This document has been electronically signed by: Genaro Joe MD on 03/28/2025 15:05:18
--- OUTSIDE RECORDS SUMMARY | 2025-03-27 08:18 | XMS_ITS | Encounter Summary ---
Author Organization [facility] Address [address] [place] [address] Care Team Providers Care Die Try Out Worker Stamping Name Role Phone Ruth Matthews MD Primary Care Provider Encounter Details Date Type Department Care Team (Late st Contact Info) Description 02/24/2025 Lab Requisition [facility] - Main Lab 299 [facility] [place] [address] Ruth Matthews MD [address] [place] [phone] Encounter for other general examination Social History [...] Antigen Negative Negative 02/24/2025 10:51 AM EDT [facility] C difficile Toxins A+B, EIA Negative Negative 02/24/2025 10:51 AM EDT [facility] Comment:NEGATIVE FOR TOXIN P RODUCING CLOSTRIDIOIDES DIFFICILE, NO ADDITIONAL TESTING IS NECESSARY. Stool Rectum structure / Unknown 02/23/2025 2:10 PM EDT 02/24/2025 9:42 AM EDT us Ruth Matthews MD LAB MICROBIOLOGY - GENERAL ORD ERABLES Final Result [facility] ([facility] H[facility] LAB [address] [place] [address], documented in this encounter Visit Diagnoses Diagnosis Encounter for other general examination documented in this encounter Care Teams Die Try Out Worker Stamping Relationship Specialty Start Date End Date Ruth Matthews MD [address] [place] [id number] PCP - General Internal Medicine 02/16/25 documented as of this encounter
[2025-03-27] MEDS: gadobutroL 10 ML VIAL IVPUSH (09:19)
== END 2025-03-27 08:14 | disposition home or self-care (01) ==
LOC: HO.MRI 08:13
PROVIDERS: Visit Provider Physician Assistant
DX: M00.9 Pyogenic arthritis, unspecified (principal); R93.7 Abnormal findings on diagnostic imaging of other parts of musculoskeletal system; M65.98 Unspecified synovitis and tenosynovitis, other site; M48.061 Spinal stenosis, lumbar region without neurogenic claudication
CPT/HCPCS: 72158; A9585

== ENCOUNTER → 2025-03-27 08:20 | Outpatient (BNV) | payer MEDICARE, SELFPAY | PROVIDERS: Visit Provider Radiology Diagnostic Radiology | DX: S32.010A Wedge compression fracture of first lumbar vertebra, initial encounter for closed fracture (principal); M51.369 Other intervertebral disc degeneration, lumbar region without mention of lumbar back pain or lower extremity pain; M48.061 Spinal stenosis, lumbar region without neurogenic claudication; M65.90 Unspecified synovitis and tenosynovitis, unspecified site | CPT/HCPCS: 72158 ==

== ENCOUNTER 2025-03-28 17:09 | Outpatient (AMB) | payer MEDICARE, SELFPAY ==
--- OUTSIDE RECORDS SUMMARY | 2025-03-28 17:11 | XMS_ITS | Encounter Summary ---
Author Organization [facility] Address [address] [place] [address] Care Team Providers Care Front Desk Representative Name Role Phone Ruth Matthews MD Primary Care Provider Encounter Details Date Type Department Care Team (Late st Contact Info) Description 02/24/[address] [facility] - Main Lab 299 [facility] [place] [address] Ruth Matthews MD [address] [place] [phone] Encounter for other general examination Social History [...] ERABLES Final Result [facility] ([facility] H[facility] LAB [address] [place] [address], documented in this encounter Visit Diagnoses Diagnosis Encounter for other general examination documented in this encounter Care Teams Front Desk Representative Relationship Specialty Start Date End Date Rtuh Matthews MD [address] [place] [id number] PCP - General Internal Medicine 02/16/25 documented as of this encounter
--- NOTE | 2025-04-16 14:15 | A.OFFVIS_ITS ---
Intake Visit Reasons: Sepsis lumbar 1 month F/U Allergies sulfamethoxazole (From Bactrim) Allergy (Severe, Verified 04/06/25 15:07) Itching trimethoprim (From Bactrim) Allergy (Severe, Verified 04/06/25 15:07) Itching tizanidine Adverse Reaction (Severe, Verified 04/06/25 15:07) Weakness HPI HPI Sepsis lumbar 1 month F/U: Details: He has been doing well. He has been taking six weeks Daptomycin with no issues. [facility] Medical History Insulin dependent type 2 diabetes mellitus Alcohol use disorder Elevated troponin Postoperative back pain Acute febrile illness Hx: UTI (urinary tract infection) GIO (obstructive sleep apnea) HLD (hyperlipidemia) BPH (benign prostatic hyperplasia) Back pain Asthma Alcohol abuse Adverse effect of anesthetic CAD (coronary artery disease) Hypothyroidism Diabetes Peripheral neuropathy HTN (hypertension) Spinal stenosis Surgical History Hx of aortic valve replacement History of tonsillectomy and adenoidectomy Hx of colonoscopy (2024) History of open reduction and internal fixation (ORIF) procedure (~2021) Hx of CABG (~2018) Aortic valve replaced (~2018) History of cardiac cath (07/28/17) History of right hip replacement (08/13/17) Social History Household Members: Spouse and Family Housing: House Are you a primary home health care respiratory therapist to a significant other at home: No Do you presently have visiting nurse or other home services: Yes Patient Tobacco Use Status: Never used Tobacco e-Cigarette/Vaping Use: Never Used Second Hand Smoke Exposure: No service: No Current occupational status: employed 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 Review of Systems Const All systems reviewed & are unremarkable except as noted in HPI and below Physical Exam Const General: cooperative HEENT Head: Yes normal to inspection Face and sinus: Yes normal facial exam Mouth: Normal oral and palatal mucosa present Teeth and gingiva: dentition normal Eyes General: appearance normal, both eyes and all related structures Pupils: Equal, round and reactive pupils present Resp Effort & Inspection: normal respiratory effort Cardio Rate: regular rate Rhythm: regular rhythm GI Palpation (GI): Soft to palpation and nontender General: Yes no CVA tenderness Back/Spine/Pelvis Back: no CVA tenderness Skin General skin exam: no rashes or lesions noted Neuro General: moves all extremities Cranial nerves: Yes Equal, round and reactive pupils present Extrem General: Yes normal to inspection Psych Appearance: grossly normal Assessment & Plan Assessment & Plan (1) Osteomyelitis: Comment: He is doing well Code(s): M86.9 - Osteomyelitis, unspecified Category: Medical Plan: Continue same treatment. (2) Sepsis: Code(s): A41.9 - Sepsis, unspecified organism Category: Medical Qualifiers: Sepsis type: sepsis due to unspecified organism Sepsis acute organ dysfunction status: unspecified Qualified Code(s): A41.9 - Sepsis, unspecified organism Plan: na Coding Level of Care Code Est Pt Level 3 (36365) Diagnoses Osteomyelitis M86.9 Sepsis, due to unspecified organism, unspecified whether acute organ dysfunction present A41.9 Sepsis type: sepsis due to unspecified organism Sepsis acute organ dysfunction status: unspecified
== END 2025-03-28 17:19 | disposition home or self-care (01) ==
LOC: HO.HID 17:09
PROVIDERS: Visit Provider Internal Medicine
DX: M86.9 Osteomyelitis, unspecified (principal); A41.9 Sepsis, unspecified organism
CPT/HCPCS: 99213

== ENCOUNTER → 2025-03-28 17:09 | Outpatient (BNVA) | payer MEDICARE, SELFPAY | PROVIDERS: Visit Provider Internal Medicine | DX: M86.9 Osteomyelitis, unspecified (principal); A41.9 Sepsis, unspecified organism | CPT/HCPCS: 99212 ==

== ENCOUNTER 2025-03-29 14:55 | Outpatient (AMB) | payer MEDICARE, SELFPAY ==
--- NOTE | 2025-03-29 14:57 | HO.SPINEOV ---
Intake Visit Reasons: Discuss results of his MRI Intake Note: Mr. Casarez is here today to discuss the results to his MRI. Cemetery Manager Required: No Allergies sulfamethoxazole [From Bactrim] Allergy (Severe, Verified 03/02/25 13:51) Itching trimethoprim [From Bactrim] Allergy (Severe, Verified 03/02/25 13:51) Itching tizanidine Adverse Reaction (Severe, Verified 03/02/25 13:51) Weakness Assessment & Plan Assessment & Plan (1) Septic arthritis: Comment: Stop Daptomycin on 03/25. Linezolid for couple weeks after. Code(s): M00.9 - Pyogenic arthritis, unspecified Category: Medical Plan Mr Casarez is back in the office today to review his MRI. Dr. Fox is not here today, so I will need to review with him, but it shows that there has been some interval improvement in the osteomyelitis, but there is still some persistent enhancement in the posterior elements at L4-5. There is also some phlegmon around this area as well. The radiologist is also questioning possibly an abscess in the bone at L4. The patient reports that he is having no fevers or chills. He has remained vigilant and been taking his antibiotics as prescribed. His PICC line is out. He was switched over to linezolid. He has been having some side effects with that, including swelling of his joints and pain. He is still continuing to get some pain down his right leg as well which can be intense at times. He was on tramadol but had to stop that because of a cross reactivity with linezolid. On exam, his wound is healed up completely, no signs of leakage or discharge or redness. His strength in the lower extremities is good and he is walking independently, appears comfortable using his walker. His laboratory data shows that his sed rates coming down to 12 currently. His white blood cell count is 5. His CRP is down to 17 from 21. At 1 point in the hospital it was at 10, so it is not clear to me why it has gone up to 17, but it is lower than the original number of 21 when he was 1st admitted. Overall I think he is headed in the right direction but I do not think Dr. Fox is going to approve any surgery to try to help the right leg pain at this point given that there is still some signs of healing infection in the MRI. As we know, the MRI does delay behind the clinical picture by at least a few weeks. Once I have a chance to review everything with Dr. Fox I will get back to the patient. Sunil Fox MD,PhD [facility] Coding Level of Care Code Global (18881) Diagnoses Septic arthritis M00.9
--- OUTSIDE RECORDS SUMMARY | 2025-03-29 17:36 | XMS_ITS | Encounter Summary ---
Author Organization [facility] Address [address] [place] [address] Care Team Providers Care Kiln Feeder Name Role Phone Ruth Matthews MD Primary Care Provider [phone] Encounter Details Date Type Department Care Team (Late st Contact Info) Description 02/24/2025 Lab Requisition [facility] - Main Lab 299 [facility] [place] [address] Ruth Matthews MD [address] [place] [phone] Encounter for other general examination Social History [...] - GENERAL ORD ERABLES Final Result [facility] LAB [address] [place] [address], documented in this encounter Visit Diagnoses Diagnosis Encounter for other general examination documented in this encounter Care Teams Kiln Feeder Relationship Specialty Start Date End Date Ruth Matthews MD [address] [place] [id number] PCP - General Internal Medicine 02/16/25 documented as of this encounter
== END 2025-03-29 15:29 | disposition home or self-care (01) ==
LOC: HO.HNS 14:55
PROVIDERS: Visit Provider Physician Assistant
DX: M00.9 Pyogenic arthritis, unspecified (principal)
CPT/HCPCS: 99024

== ENCOUNTER → 2025-03-29 14:55 | Outpatient (BNVA) | payer MEDICARE, SELFPAY | PROVIDERS: Visit Provider Physician Assistant | DX: M00.9 Pyogenic arthritis, unspecified (principal); Z09 Encounter for follow-up examination after completed treatment for conditions other than malignant neoplasm; Z98.890 Other specified postprocedural states | CPT/HCPCS: 99212 ==

== ENCOUNTER 2025-04-06 13:42 | Outpatient (AMB) | payer MEDICARE, SELFPAY ==
--- NOTE | 2025-04-06 13:43 | A.SPINEOV_ITS ---
Intake Visit Reasons: MRI f/u Intake Note: Mr. Casarez is here today to F/u on the results to his MRI. Supervisor Hospitality House Required: No Allergies sulfamethoxazole [From Bactrim] Allergy (Severe, Verified 03/02/25 13:51) Itching trimethoprim [From Bactrim] Allergy (Severe, Verified 03/02/25 13:51) Itching tizanidine Adverse Reaction (Severe, Verified 03/02/25 13:51) Weakness Assessment & Plan Assessment & Plan (1) Septic arthritis: Comment: Stop Daptomycin on 03/25. Linezolid for couple weeks after. Code(s): M00.9 - Pyogenic arthritis, unspecified Category: Medical Plan Mr Casarez came back in the office today for follow-up. He is continually try to get in contact with the Infectious Disease team, to no avail unfortunately. He is just about out of his linezolid and is a bit frustrated at not knowing if he should continue on these because of the MRI findings suggesting there could still be some level of low-grade infection going on. We talked about the fact last time that the MRI as often delayed by at least few weeks behind the clinical picture. Dr. Fox was very pleased that the MRI showed significant reduction of the soft tissue abscess and fluid collection that he had, but there is still some signs of inflammation in the posterior elements and a small collection around the L4 spinous process. His sed rate has come down significantly, and his white count is normal, however his white count was never elevated in the hospital. His CRP is down as well but has not come as close to normal as the sed rate has. Dr. Fox thought is that based on what we saw at the time of surgery, the L4-5 area is showing signs of instability when we positioned him on the table. Therefore, to ultimately treat his back issues he is going to need spinal fusion, i.e. instrumentation. This is potentially high risk situation if they are still embers of an infection going on. The patient is waiting to speak with Dr. Patel about getting some solid answers to this and whether he needs to continue on the antibiotics in anticipation of possible upcoming surgery. Dr. Fox plans to get a follow up MRI in 6-8 weeks to ensure that things are continuing to go in the right direction. I did reach out to through tiger text but have not heard back. I will attempt to contact her again today as the patient did get a call during our visit that she is going to see him today in the office. Sunil Fox MD, PhD [facility] Coding Level of Care Code Global (29083) Diagnoses Septic arthritis M00.9
--- OUTSIDE RECORDS SUMMARY | 2025-04-06 13:50 | XMS_ITS | Encounter Summary ---
Author Organization [facility] Address [address] [place] [address] Care Team Providers Care Crop And Soil Technician Name Role Phone Ruth Matthews MD Primary Care Provider Encounter Details Date Type Department Care Team (Late st Contact Info) Description 02/24/2025 Lab Requisition [facility] - Main Lab 299 [facility] [place] [address] Ruth Matthews MD [address] [place] [phone] Encounter for other general examination Social History [...] Antigen Negative Negative 02/24/2025 10:51 AM EDT [facility] C difficile Toxins A+B, EIA Negative Negative 02/24/2025 10:51 AM EDT [facility] Comment:NEGATIVE FOR TOXIN P RODUCING CLOSTRIDIOIDES DIFFICILE, NO ADDITIONAL TESTING IS NECESSARY. Stool Rectum structure / Unknown 02/23/2025 2:10 PM EDT 02/24/2025 9:42 AM EDT us Ruth Matthews MD LAB MICROBIOLOGY - GENERAL ORD ERABLES Final Result [facility] ([facility] LAB [address] [place] [address], documented in this encounter Visit Diagnoses Diagnosis Encounter for other general examination documented in this encounter Care Teams Crop And Soil Technician Relationship Specialty Start Date End Date Ruth Matthews MD [address] [place] [phone] PCP - General Internal Medicine 02/16/25 documented as of this encounter
== END 2025-04-06 14:37 | disposition home or self-care (01) ==
LOC: HO.HNS 13:42
PROVIDERS: Visit Provider Physician Assistant
DX: M00.9 Pyogenic arthritis, unspecified (principal)
CPT/HCPCS: 99024

== ENCOUNTER 2025-04-06 13:42 | Outpatient (REF) | payer MEDICARE, SELFPAY ==
[2025-04-06 16:20] LABS: MANUAL DIFF FLAG NO
[2025-04-06 16:55] LABS: Basophils Absolute Auto 0.1 X10*3/uL (0.0-0.2); Basophils Percent Auto 0.9 % (0-2); Eosinophils Absolute Auto 0.1 X10*3/uL (0.0-0.4); Eosinophils Percent Auto 2.1 % (0-4); Hematocrit 31.7 % (42.0-52.0); Hemoglobin 10.4 g/dl (14.0-18.0); Imm Gran Abs Auto 0.02 X10*3/uL (0.00-0.03); Imm Gran Pct Auto 0.4 % (0.0-0.4); Lymphocytes Absolute Auto 1.4 X10*3/uL (1.2-4.9); Lymphocytes Percent Auto 25.8 % (20-40); Mean Corpuscular HGB Conc 32.8 g/dl (31.0-36.0); Mean Corpuscular Hemoglobin 29.3 pg (27.0-33.0); Mean Corpuscular Volume 89.3 fL (80.0-98.0); Mean Platelet Volume 9.4 fL (9.4-12.4); Monocytes Absolute Auto 0.7 X10*3/uL (0.1-1.2); Monocytes Percent Auto 12.7 % (2-11); Neutrophils Absolute Auto 3.1 x10*3/uL (2.0-8.3); Neutrophils Percent Auto 58.1 % (45-73); Platelet Count 176 X10*3/uL (160-400); Red Blood Count 3.55 X10*6/uL (4.60-5.80); Red Cell Distribution Width 16.3 % (11.0-16.0); White Blood Count 5.3 X10*3/uL (4.8-10.8)
[2025-04-06 17:18] LABS: Alanine Aminotransferase 18 U/L (0-40); Albumin Level 4.4 g/dL (3.5-5.0); Alkaline Phosphatase 113 U/L (39-117); Anion Gap 14 (12-20); Aspartate Amino Transferase 27 U/L (5-37); Bilirubin Direct 0.4 mg/dL (0.0-0.5); Bilirubin Total 0.8 mg/dL (0.0-1.0); Blood Urea Nitrogen 13 mg/dL (9-16); Calcium 9.4 mg/dL (8.4-10.2); Carbon Dioxide 24 mmol/L (22-29); Chloride 100 mmol/L (96-108); Estimated Glomerular Filt Rate > 60; Glucose Random 113 mg/dL (60-115); Potassium 4.5 mmol/L (3.3-5.1); Sodium 133 mmol/L (135-145); Total Protein 7.2 g/dL (6.5-8.0)
[2025-04-06 17:53] LABS: Erythrocyte Sedimentation Rate 23 MM/HR (0-15)
[2025-04-07 04:58] LABS: CRP High Sensitivity >20.0 mg/L
== END 2025-04-06 13:43 | disposition home or self-care (01) ==
LOC: HO.LAB 13:42
PROVIDERS: Absent Provider Internal Medicine; Visit Provider Physician Assistant
DX: M00.9 Pyogenic arthritis, unspecified (principal)
CPT/HCPCS: 36415; 80048; 80076; 85025; 85652; 86141; 87040; 99212

== ENCOUNTER 2025-04-06 14:56 | Outpatient (AMB) | payer MEDICARE, SELFPAY ==
--- NOTE | 2025-04-06 15:00 | MHC.OFFVIS ---
Vital Signs 04/06/25 15:05 Pulse 96 Pulse Source Pulse Oximeter Temp 98.9 F Temp Source Oral Pulse Oximetry (%) 98 Oxygen Delivery Method Room Air Intake Visit Reasons: follow up Septic arthritis Allergies sulfamethoxazole [From Bactrim] Allergy (Severe, Verified 04/06/25 15:07) Itching trimethoprim [From Bactrim] Allergy (Severe, Verified 04/06/25 15:07) Itching tizanidine Adverse Reaction (Severe, Verified 04/06/25 15:07) Weakness HPI HPI follow up Septic arthritis: Details: He is here in person for followup He had L4-L5 decompression laminectomy with Dr Fox on 01/23. He developed chills while on trip to [place] and returned home. He had blood cultures 02/06 enterococcus faecalis x 2. He finished IV Daptomycin on 03/25 and felt well with no back drainage and started po linezolid. He has no fever or chills. He is following up with spine surgery. [facility] Medical History Insulin dependent type 2 diabetes mellitus Alcohol use disorder Elevated troponin Postoperative back pain Acute febrile illness Hx: UTI (urinary tract infection) GIO (obstructive sleep apnea) HLD (hyperlipidemia) BPH (benign prostatic hyperplasia) Back pain Asthma Alcohol abuse Adverse effect of anesthetic CAD (coronary artery disease) Hypothyroidism Diabetes Peripheral neuropathy HTN (hypertension) Spinal stenosis Surgical History Hx of aortic valve replacement History of tonsillectomy and adenoidectomy Hx of colonoscopy (2024) History of open reduction and internal fixation (ORIF) procedure (~2021) Hx of CABG (~2018) Aortic valve replaced (~2018) History of cardiac cath (07/28/17) History of right hip replacement (08/13/17) Social History Household Members: Spouse and Family Housing: House Are you a primary auto care center manager to a significant other at home: No Do you presently have visiting nurse or other home services: Yes Patient Tobacco Use Status: Never used Tobacco e-Cigarette/Vaping Use: Never Used Second Hand Smoke Exposure: No service: No Current occupational status: employed Current occupation: [employer] Comp[employer] Review of Systems Const All systems reviewed & are unremarkable except as noted in HPI and below Physical Exam Vital Signs: Last Vital Signs Temp 98.9 F 04/06/25 15:05 Pulse 96 04/06/25 15:05 Pulse Ox 98 04/06/25 15:05 Oxygen Delivery Method Room Air 04/06/25 15:05 Const General: cooperative HEENT Head: Yes normal to inspection Face and sinus: Yes normal facial exam Mouth: Normal oral and palatal mucosa present Teeth and gingiva: dentition normal Eyes General: appearance normal, both eyes and all related structures Pupils: Equal, round and reactive pupils present Resp Effort & Inspection: normal respiratory effort Cardio Rate: regular rate Rhythm: regular rhythm GI Palpation (GI): Soft to palpation and nontender General: Yes no CVA tenderness Back/Spine/Pelvis Back: no CVA tenderness Skin General skin exam: no rashes or lesions noted Neuro General: moves all extremities Cranial nerves: Yes Equal, round and reactive pupils present Extrem General: Yes normal to inspection Psych Appearance: grossly normal Assessment & Plan Assessment & Plan (1) Septic arthritis: Comment: He reports doing well and ESR has been low MRI LS spine 03/28 shows phlegmon as well as OM ,not surprising since patient may have postop phlegmon and also OM. Also OM should be treated after linezolid 2-4 weeks if tolerated with chronic suppression po PCN V 500 mg bid or Amoxicillin 500 mg daily. Will stop po linezolid if cytopenias and start Amoxicillin probably. Code(s): M00.9 - Pyogenic arthritis, unspecified Category: Medical Plan: na Plan na Orders: Orders Blood Culture X2 04/06/25 M00.9 - Pyogenic arthritis, unspecified Erythrocyte Sedimentation Rate 04/06/25 M00.9 - Pyogenic arthritis, unspecified Complete Blood Count Auto Diff 04/06/25 M00.9 - Pyogenic arthritis, unspecified Basic Metabolic Panel 04/06/25 M00.9 - Pyogenic arthritis, unspecified Complete Blood Count Auto Diff 5 Days M00.9 - Pyogenic arthritis, unspecified CRP High Sensitivity 04/06/25 M00.9 - Pyogenic arthritis, unspecified Liver Panel 04/06/25 M00.9 - Pyogenic arthritis, unspecified Medications: New linezolid 600 mg PO Q12H 28 days 56 tabs 0RF Coding Level of Care Code Est Pt Level 3 (11967) Diagnoses Septic arthritis M00.9
[2025-04-06 15:05] VITALS: PULSE 96; TEMP 37.2; O2SAT 98
== END 2025-04-06 15:49 | disposition home or self-care (01) ==
LOC: HO.HID 14:56
PROVIDERS: Visit Provider Internal Medicine
DX: M00.9 Pyogenic arthritis, unspecified (principal)
CPT/HCPCS: 99213

== ENCOUNTER 2025-04-11 08:05 | Outpatient (REF) | payer MEDICARE, SELFPAY ==
--- OUTSIDE RECORDS SUMMARY | 2025-04-11 08:17 | XMS_ITS | Encounter Summary ---
Author Organization [facility] Address [address] [place] [address] Care Team Providers Care Director Life Insurance Name Role Phone Ruth Matthews MD Primary Care Provider [phone] Encounter Details Date Type Department Care Team (Late st Contact Info) Description 02/24/2025 Lab Requisition [facility] - Main Lab 299 [facility] [place] [address] Ruth Matthews MD [address] [place] [address] Encounter for other general examination Social History [...] GENERAL ORD ERABLES Final Result [facility] ([facility] LAB [address] [place] [address], documented in this encounter Visit Diagnoses Diagnosis Encounter for other general examination documented in this encounter Care Teams Director Life Insurance Relationship Specialty Start Date End Date Ruth Matthews MD [address] [place] [address] PCP - General Internal Medicine 02/16/25 documented as of this encounter
[2025-04-11 08:25] LABS: MANUAL DIFF FLAG NO
[2025-04-11 08:49] LABS: Basophils Percent Auto 0.6 % (0-2); Eosinophils Absolute Auto 0.2 X10*3/uL (0.0-0.4); Hematocrit 30.5 % (42.0-52.0); Hemoglobin 10.1 g/dl (14.0-18.0); Imm Gran Abs Auto 0.01 X10*3/uL (0.00-0.03); Imm Gran Pct Auto 0.2 % (0.0-0.4); Lymphocytes Absolute Auto 1.9 X10*3/uL (1.2-4.9); Lymphocytes Percent Auto 39.7 % (20-40); Mean Corpuscular HGB Conc 33.1 g/dl (31.0-36.0); Mean Corpuscular Hemoglobin 29.6 pg (27.0-33.0); Mean Corpuscular Volume 89.4 fL (80.0-98.0); Mean Platelet Volume 8.7 fL (9.4-12.4); Monocytes Absolute Auto 0.8 X10*3/uL (0.1-1.2); Monocytes Percent Auto 17.6 % (2-11); Neutrophils Absolute Auto 1.8 x10*3/uL (2.0-8.3); Neutrophils Percent Auto 37.9 % (45-73); Platelet Count 154 X10*3/uL (160-400); Red Blood Count 3.41 X10*6/uL (4.60-5.80); Red Cell Distribution Width 16.8 % (11.0-16.0); White Blood Count 4.8 X10*3/uL (4.8-10.8)
[2025-04-11 09:15] LABS: Anion Gap 10 (12-20); Blood Urea Nitrogen 17 mg/dL (9-16); Calcium 9.3 mg/dL (8.4-10.2); Carbon Dioxide 26 mmol/L (22-29); Chloride 101 mmol/L (96-108); Estimated Glomerular Filt Rate > 60; Glucose Random 75 mg/dL (60-115); Potassium 4.3 mmol/L (3.3-5.1); Sodium 133 mmol/L (135-145)
== END 2025-04-11 08:06 | disposition home or self-care (01) ==
LOC: HO.LAB 08:05
PROVIDERS: Family Medicine; PCP Family Medicine; Visit Provider Internal Medicine
DX: E87.1 Hypo-osmolality and hyponatremia (principal); M00.9 Pyogenic arthritis, unspecified
CPT/HCPCS: 36415; 80048; 85025

== ENCOUNTER 2025-04-13 11:17 | Outpatient (REF) | payer MEDICARE, SELFPAY ==
[2025-04-13 11:29] LABS: Mean Corpuscular HGB Conc 33.3 g/dl (31.0-36.0); Mean Corpuscular Hemoglobin 29.4 pg (27.0-33.0); Mean Corpuscular Volume 88.2 fL (80.0-98.0); Mean Platelet Volume 8.3 fL (9.4-12.4); Platelet Count 140 X10*3/uL (160-400); Red Cell Distribution Width 16.7 % (11.0-16.0); White Blood Count 4.8 X10*3/uL (4.8-10.8)
--- OUTSIDE RECORDS SUMMARY | 2025-04-13 11:41 | XMS_ITS | Encounter Summary ---
Author Organization [facility] Address [address] [place] [address] Care Team Providers Care Fishing Tool Technician Oil Well Name Role Phone Ruth Matthews MD Primary Care Provider [phone] Encounter Details Date Type Department Care Team (Late st Contact Info) Description 02/24/2025 Lab Requisition [facility] - Main Lab 299 [facility] [place] [address] Ruth Matthews MD [address] [place] [address] Encounter for other general examination Social History [...] Antigen Negative Negative 02/24/2025 10:51 AM EDT [facility] C difficile Toxins A+B, EIA Negative Negative 02/24/2025 10:51 AM EDT [facility] Comment:NEGATIVE FOR TOXIN P RODUCING CLOSTRIDIOIDES DIFFICILE, NO ADDITIONAL TESTING IS NECESSARY. Stool Rectum structure / Unknown 02/23/2025 2:10 PM EDT 02/24/2025 9:42 AM EDT us Ruth Matthews MD LAB MICROBIOLOGY - GENERAL ORD ERABLES Final Result [facility] ([facility] LAB [address] [place] [address], documented in this encounter Visit Diagnoses Diagnosis Encounter for other general examination documented in this encounter Care Teams Fishing Tool Technician Oil Well Relationship Specialty Start Date End Date Ruth Matthews MD [address] [place] [address] PCP - General Internal Medicine 02/16/25 documented as of this encounter
== END 2025-04-13 11:18 | disposition home or self-care (01) ==
LOC: HO.LAB 11:17
PROVIDERS: PCP Family Medicine; Visit Provider Internal Medicine
DX: R78.81 Bacteremia (principal)
CPT/HCPCS: 36415; 85027

== ENCOUNTER 2025-05-04 13:05 | Outpatient (AMB) | payer MEDICARE, SELFPAY ==
--- OUTSIDE RECORDS SUMMARY | 2025-05-04 13:08 | XMS_ITS | Encounter Summary ---
Author Organization [facility] Address [address] [place] [address] Care Team Providers Care Freight Agent Name Role Phone Ruth Matthews MD Primary Care Provider [phone] Encounter Details Date Type Department Care Team (Late st Contact Info) Description 02/24/2025 Lab Requisition [facility] - Main Lab 299 [facility] [place] [address] Ruth Matthews MD [address] [place] [address] Encounter for other general examination Social History [...] - GENERAL ORD ERABLES Final Result [facility] ([facility] HOSP[facility] LAB 299 [place] [address], documented in this encounter Visit Diagnoses Diagnosis Encounter for other general examination documented in this encounter Care Teams Freight Agent Relationship Specialty Start Date End Date Ruth Matthews MD [address] [place] [address] PCP - General Internal Medicine 02/16/25 documented as of this encounter
--- NOTE | 2025-05-04 13:12 | MHC.OFFVIS ---
Vital Signs 05/04/25 13:17 Pulse 78 Pulse Source Pulse Oximeter Pulse Oximetry (%) 97 Oxygen Delivery Method Room Air Intake Visit Reasons: 1 Month f/u Allergies sulfamethoxazole (From Bactrim) Allergy (Severe, Verified 05/04/25 13:17) Itching trimethoprim (From Bactrim) Allergy (Severe, Verified 05/04/25 13:17) Itching tizanidine Adverse Reaction (Severe, Verified 05/04/25 13:17) Weakness HPI HPI 1 Month f/u: Details: He is doing well He has no complaints. He is getting MRI on 05/21. He is seeing Neurosurgery again as well. [facility] Medical History Insulin dependent type 2 diabetes mellitus Alcohol use disorder Elevated troponin Postoperative back pain Acute febrile illness Hx: UTI (urinary tract infection) GIO (obstructive sleep apnea) HLD (hyperlipidemia) BPH (benign prostatic hyperplasia) Back pain Asthma Alcohol abuse Adverse effect of anesthetic CAD (coronary artery disease) Hypothyroidism Diabetes Peripheral neuropathy HTN (hypertension) Spinal stenosis Surgical History Hx of aortic valve replacement History of tonsillectomy and adenoidectomy Hx of colonoscopy (2024) History of open reduction and internal fixation (ORIF) procedure (~2021) Hx of CABG (~2018) Aortic valve replaced (~2018) History of cardiac cath (07/28/17) History of right hip replacement (08/13/17) Social History Household Members: Spouse and Family Housing: House Are you a primary urgent care technician to a significant other at home: No Do you presently have visiting nurse or other home services: Yes Patient Tobacco Use Status: Never used Tobacco e-Cigarette/Vaping Use: Never Used Second Hand Smoke Exposure: No service: No Current occupational status: employed 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 Review of Systems Const All systems reviewed & are unremarkable except as noted in HPI and below Physical Exam Vital Signs: Last Vital Signs Pulse 78 05/04/25 13:17 Pulse Ox 97 05/04/25 13:17 Oxygen Delivery Method Room Air 05/04/25 13:17 Const General: cooperative HEENT Head: Yes normal to inspection Face and sinus: Yes normal facial exam Mouth: Normal oral and palatal mucosa present Teeth and gingiva: dentition normal Eyes General: appearance normal, both eyes and all related structures Pupils: Equal, round and reactive pupils present Resp Effort & Inspection: normal respiratory effort Cardio Rate: regular rate Rhythm: regular rhythm GI Palpation (GI): Soft to palpation and nontender General: Yes no CVA tenderness Back/Spine/Pelvis Back: no CVA tenderness Skin General skin exam: no rashes or lesions noted Neuro General: moves all extremities Cranial nerves: Yes Equal, round and reactive pupils present Extrem Other: plus one edema, in wheelchair General: Yes normal to inspection Psych Appearance: grossly normal Assessment & Plan Assessment & Plan (1) Osteomyelitis: Comment: He is doing well and tolerating Amoxicillin 500 mg tid,followup antibiotic for enterococcus faecalis infection Code(s): M86.9 - Osteomyelitis, unspecified Category: Medical Plan: Would continue po Amoxicillin 500 mg tid full dose until MRI obtained and hopefully no need for drainage and can give Amoxicillin prophylactically at 500 mg daily or three times a week for some time. (2) Enterococcus faecalis infection: Code(s): A49.8 - Other bacterial infections of unspecified site Category: Medical Plan: na Medications: New amoxicillin 500 mg PO TID 14 days 42 caps 0RF amoxicillin 500 mg PO TID 63 caps 0RF 21 days Coding Level of Care Code Est Pt Level 3 (72082) Diagnoses Osteomyelitis M86.9 Enterococcus faecalis infection A49.8
[2025-05-04 13:17] VITALS: PULSE 78; O2SAT 97
== END 2025-05-04 13:48 | disposition home or self-care (01) ==
LOC: HO.HID 13:05
PROVIDERS: PCP Family Medicine; Visit Provider Internal Medicine
DX: M86.9 Osteomyelitis, unspecified (principal); A49.8 Other bacterial infections of unspecified site
CPT/HCPCS: 99213

== ENCOUNTER → 2025-05-04 13:05 | Outpatient (BNVA) | payer MEDICARE, SELFPAY | PROVIDERS: PCP Family Medicine; Visit Provider Internal Medicine | DX: M86.9 Osteomyelitis, unspecified (principal); A49.8 Other bacterial infections of unspecified site; Z79.2 Long term (current) use of antibiotics | CPT/HCPCS: 99212 ==

== ENCOUNTER 2025-05-21 08:33 | Outpatient (REF) | payer MEDICARE, SELFPAY ==
--- OUTSIDE RECORDS SUMMARY | 2025-05-21 08:52 | XMS_ITS | Encounter Summary ---
Author Organization [facility] Address [address] [place] [address] Care Team Providers Care Vocational Ed Instructor Name Role Phone Ruth Matthews MD Primary Care Provider Encounter Details Date Type Department Care Team (Late st Contact Info) Description 02/24/2025 Lab Requisition [facility] - Main Lab 299 [facility] [place] [address] Ruth Matthews MD [address] [place] [address] Encounter for other general examination Social History [...] Antigen Negative Negative 02/24/2025 10:51 AM EDT [facility] C difficile Toxins A+B, EIA Negative Negative 02/24/2025 10:51 AM EDT [facility] Comment:NEGATIVE FOR TOXIN P RODUCING CLOSTRIDIOIDES DIFFICILE, NO ADDITIONAL TESTING IS NECESSARY. Stool Rectum structure / Unknown 02/23/2025 2:10 PM EDT 02/24/2025 9:42 AM EDT us Ruth Matthews MD LAB MICROBIOLOGY - GENERAL ORD ERABLES Final Result [facility] ([facility] H[facility] LAB [address] [place] [address], documented in this encounter Visit Diagnoses Diagnosis Encounter for other general examination documented in this encounter Care Teams Vocational Ed Instructor Relationship Specialty Start Date End Date Ruth Matthews MD [address] [place] [address] PCP - General Internal Medicine 02/16/25 documented as of this encounter
--- OUTSIDE RECORDS SUMMARY | 2025-05-21 08:52 | XMS_ITS | Encounter Summary ---
Author Organization [facility] Address [address] [place] [address] [place] [address] Phone Support Name Relationship Address Phone Amy Campbell Micnataliia Emergency Contact [address] [place] [address] Keysha Cox Emergency Contact [address] [place] [address] Care Team Providers Care Jewel Hole Finish Opener Name Role Phone Cornelia Membreno MD Primary Care Provider + [phone] Bakari Henson MD Unavailable [phone] Art Ley MD Unavailable [phone] Akira Malik MD Unavailable [phone] Cornelia Membreno MD Unavailable [phone] Cornelia Membreno MD Unavailable [phone] Kaitlin Greene OT Unavailable [phone] Encounter Details Date Type Department Care Team (Late st Contact Info) Description 09/10/2021 Procedure Pass [facility] Endoscopy Admitting Dept Virtual Department [address] [place] [address] Social History Tobacco Use Types Packs/Day Years Used Date Smoking Tobacco: Never Smokeless Tobacco: Never Alcohol Use Standard Drinks/Week Comments Yes 0 (1 standard drink = 0.6 oz pur e alcohol) 1 or 2 daily Child or Family Care Answer Date Record ed Do you have problems with on e of the following making it difficult for you to work, study, or receive health care? No 03/26/2021 Education Answer Date Recorded Are you interested in help w ith more adult education (for example, completing high school, GED, job training, learning the Welsh language, technical skills, or developing parenting skills)? No 03/26/2021 Food Answer Date Recorded Within the past 6 months we worried whether our food would run out before we got money to buy more. Never True 03/26/2021 Within the past 6 months the food we bought just didn't last and we didn't have enough money to get more. I choose not to answer 03/26/2021 Residential Stability Answer Date Recor ded What is your housing situation today? I have nicole michel 03/26/2021 How many times have you move d in the past 12 months? Zero (I did not move) 03/26/2021 06 Are you worried that in t he next 2 months, you may not have your own housing to live in? No 03/26/2021 Paying for Meds Answer Date Recorded Do you have trouble paying for medicines? No 03/26/2021 Paying Utility Bills Answer Date Record ed Do you have trouble paying your heating or elect ricity bill? No 03/26/2021 Transportation Answer Date Recorded Has the lack of transportati on kept you from medical appointments or from getting medications? No 03/26/2021 Unemployment Answer Date Recorded Are you currently unemployed or working on a part-time or temporary basis, and looking for work? 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 Not on file Not on file documented as of this encounter Plan of Treatment Upcoming Encounters Date Type Department Care Team (Late st Contact Info) Description 12/05/2024 Procedure Pass [facility] [place] [address] [place] [address] 05/09/2025 Procedure Pass Non-Invasive Cardiology [address] [place] [address] 05/09/2025 Procedure Pass Non-Invasive Cardiology [address] [place] [address] 06/01/2025 8:30 AM EDT Appointment Non-Invasive Cardiology [address] [place] [address] [place] [address] Yolie Lewis DNP [address] [place] [address] 06/07/2025 9:00 AM EDT Appointment Non-Invasive Cardiology [address] [place] [address] [place] [address] Ceasar Devries MD [address] [place] [address] 06/15/2025 8:30 AM EDT Office Visit [facility] [address] [place] [address], [address] [address] Yolie Lewis DNP [address] [place] [address] 10/29/2025 8:30 AM EST Appointment Echo Lab [address] [address] Cindy Russell DNP [address] [place] [address] 11/01/2025 9:10 AM EST Office Visit [facility] [address] [place] [address] Alejo Elam DO [address] [place] [address] 11/05/2025 8:40 AM EST Office Visit [facility] [address] [place] [address], [address] [address] Win Zheng MD [address] [place] [address] documented as of this encounter Visit Diagnoses Not on filedocumented in this encounter Additional Health Concerns Infection Onset Date Last Indicated Resolved Time CoV-Risk Comment:Per Ambulatory Triage Form 10/14/2021 10/16/202110/26 1:24 AM EST CoV-Risk Comment:Per Ambulatory Triage Form 10/06/2022 10/06/202210/17 1:24 AM EST CDiff-Risk 07/17/2024 07/17/2024 07/17/2024 8:54 PM EDT CDiff-Risk 07/27/2024 07/27/2024 07/27/2024 8:21 PM EDT Assessment Noted Time PHQ-2 Depression Total Score: 1 08/29/20 19 12:06 PM EST documented as of this encounter Care Teams Jewel Hole Finish Opener Relationship Specialty Start Date End Date Cornelia Membreno MD [address] [place] [address] [email or web address] PCP - General 08/12/17 Bakari Henson MD [address] [place] [address] [email or web address] Historical LMR Provider 08/14/17 11/01/21 Art Ley MD [address] [place] [address] [email or web address] Historical LMR Provider 08/14/17 11/01/21 Akira Malik MD [address] [place] [address] [email or web address] Historical LMR Provider 08/14/17 11/01/21 Cornelia Membreno MD [address] [place] [address] [email or web address] Insurance Assigned Provider 01/22/18 05/30/23 Cornelia Membreno MD [address] [place] [address], [address] [place] [address] Insurance Assigned Provider 01/28/25 Kaitlin Greene, OT [address] [place] [address] [email or web address] Transitions Last Pattern GraderLabeling Machine Operator Therapy 04/23/2504/24/25 documented as of this encounter Additional Source Comments The information contained in this document represents components of the legal health record. It is not the complete legal health record.[facility]
== END 2025-05-21 08:34 | disposition home or self-care (01) ==
LOC: HO.MRI 08:33
PROVIDERS: PCP Family Medicine; Visit Provider Physician Assistant
DX: Z13.89 Encounter for screening for other disorder (principal)

== ENCOUNTER 2025-05-25 13:40 | Outpatient (AMB) | payer MEDICARE, SELFPAY ==
--- OUTSIDE RECORDS SUMMARY | 2025-05-25 13:42 | XMS_ITS | Encounter Summary ---
Author Organization [facility] Address [address] [place] [address] [place] [address] Phone Support Name Relationship Address Phone Amy Campbell Micnataliia Emergency Contact [address] [place] [address] Keysha Cox Emergency Contact [address] [place] [address] Care Team Providers Care Metal Punch Press Operator Name Role Phone Cornelia Membreno MD Primary Care Provider + [phone] Bakari Henson MD Unavailable [phone] Art Ley MD Unavailable Akira Malik MD Unavailable [phone] Cornelia Membreno MD Unavailable [phone] Cornelia Membreno MD Unavailable [phone] Kaitlin Greene OT Unavailable [phone] Encounter Details Date Type Department Care Team (Late st Contact Info) Description 09/10/2021 Procedure Pass [facility] Endoscopy Admitting Dept Virtual Department [address] [place] [address] Social History Tobacco Use Types Packs/Day Years [...] high school, GED, job training, learning the Puerto Rican language, technical skills, or developing parenting skills)? [...] Upcoming Encounters Date Type Department Care Team (Latest Contact Info) Description 12/05/2024 Procedure Pass Echo Lab [place] [address] [place] [address] 05/09/2025 Procedure Pass Non-Invasive Cardiology [address] [place] [address] 05/09/2025 Procedure Pass Non-Invasive Cardiology [address] [place] [address] 06/01/2025 8:30 AM EDT Hospital Encounter Non-Invasive Cardiology [address] [place] [address] [place] [address] Yolie Lewis DNP [address] [place] [address] 06/07/2025 9:00 AM EDT Appointment Non-Invasive Cardiology [address] [place] [address] [place] [address] Ceasar Devries MD [address] [place] [address] 06/15/2025 8:30 AM EDT Office Visit [facility] [address] [place] [address], [address] [address] Yolie Lewis DNP [address] [place] [address] 10/29/2025 8:30 AM EST Appointment Echo Lab [address] [address] Cindy Russlel DNP [address] [place] [address] 11/01/2025 9:10 AM EST Office Visit [facility] [address] [place] [address] Alejo Elam DO [address] [place] [address] 11/05/2025 8:40 AM EST Office Visit [facility] [address] [place] [address], [address] [address] Win Zheng MD [address] [place] [address] [email or web address] documented as of this encounter Visit Diagnoses [...] documented as of this encounter Care Teams Metal Punch Press Operator Relationship Specialty Start Date End Date Cornelia Membreno MD [address] [place] [address] [email or web address] PCP - General 08/12/17 Bakari Henson MD [address] [place] [address] [email or web address] Historical LMR Provider 08/14/17 11/01/21 Art Ley MD [address] [place] [address] [email or web address] Historical LMR Provider 08/14/17 11/01/21 Akira Malik MD [address] [place] [address] [email or web address] Historical LMR Provider 08/14/17 11/01/21 Cornelia Membreno MD [address] [place] [address] [email or web address] Insurance Assigned Provider 01/22/18 05/30/23 Cornelia Membreno MD [address] [place] [address], [address] [place] [address] [email or web address] Insurance Assigned Provider 01/28/25 Kaitlin Greene, OT [address] [place] [address] [email or web address] Transitions Nurse OrthoTapeman Therapy 04/23/2504/24/25 documented as of this encounter Additional Source Comments The information contained in this document represents components of the legal health record. It is not the complete legal health record.[facility]
--- OUTSIDE RECORDS SUMMARY | 2025-05-25 13:42 | XMS_ITS | Encounter Summary ---
Author Organization [facility] Address [address] [place] [address] Care Team Providers Care Category Development Analyst Name Role Phone Ruth Matthews MD Primary Care Provider Encounter Details Date Type Department Care Team (Late st Contact Info) Description 02/24/2025 Lab Requisition [facility] - Main Lab 299 [facility] [place] [address] Ruth Matthews MD [address] [place] [address] Encounter for other general examination Social History [...] Antigen Negative Negative 02/24/2025 10:51 AM EDT [facility] C difficile Toxins A+B, EIA Negative Negative 02/24/2025 10:51 AM EDT [facility] Comment:NEGATIVE FOR TOXIN P RODUCING CLOSTRIDIOIDES DIFFICILE, NO ADDITIONAL TESTING IS NECESSARY. Stool Rectum structure / Unknown 02/23/2025 2:10 PM EDT 02/24/2025 9:42 AM EDT us Ruth Matthews MD LAB MICROBIOLOGY - GENERAL ORD ERABLES Final Result [facility] ([facility] H[facility] LAB [address] [place] [address], documented in this encounter Visit Diagnoses Diagnosis Encounter for other general examination documented in this encounter Care Teams Category Development Analyst Relationship Specialty Start Date End Date Ruth Matthews MD [address] [place] [address] PCP - General Internal Medicine 02/16/25 documented as of this encounter
--- NOTE | 2025-05-25 16:00 | A.OFFVIS_ITS ---
Intake Visit Reasons: 3 weeks f/u Allergies sulfamethoxazole (From Bactrim) Allergy (Severe, Verified 05/04/25 13:17) Itching trimethoprim (From Bactrim) Allergy (Severe, Verified 05/04/25 13:17) Itching tizanidine Adverse Reaction (Severe, Verified 05/04/25 13:17) Weakness HPI HPI 3 weeks f/u: Details: He notes he is doing well. He is in [place]. He is taking Amoxicillin tid. [facility] Medical History Insulin dependent type 2 diabetes mellitus Alcohol use disorder Elevated troponin Postoperative back pain Acute febrile illness Hx: UTI (urinary tract infection) GIO (obstructive sleep apnea) HLD (hyperlipidemia) BPH (benign prostatic hyperplasia) Back pain Asthma Alcohol abuse Adverse effect of anesthetic CAD (coronary artery disease) Hypothyroidism Diabetes Peripheral neuropathy HTN (hypertension) Spinal stenosis Surgical History Hx of aortic valve replacement History of tonsillectomy and adenoidectomy Hx of colonoscopy (2024) History of open reduction and internal fixation (ORIF) procedure (~2021) Hx of CABG (~2018) Aortic valve replaced (~2018) History of cardiac cath (07/28/17) History of right hip replacement (08/13/17) Social History Household Members: Spouse and Family Housing: House Are you a primary chronic care nurse to a significant other at home: No Do you presently have visiting nurse or other home services: Yes Patient Tobacco Use Status: Never used Tobacco e-Cigarette/Vaping Use: Never Used Second Hand Smoke Exposure: No service: No Current occupational status: employed 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 occupation: [employer] Telehealth Telehealth Telehealth Platform: Telephone Location of provider rendering services: practice address Location of patient: address on file Patient Identification confirmed using: Name, : Yes Telehealth method: voice only Patient verbally consented to treatment: Yes Patient informed of any privacy concerns related to visit: Yes Minutes spent on Phone/Video with Pt.: 20 Assessment & Plan Assessment & Plan (1) Osteomyelitis: Comment: He is doing well and tolerating Amoxicillin 500 mg tid,followup antibiotic for enterococcus faecalis infection Code(s): M86.9 - Osteomyelitis, unspecified Category: Medical Plan: Taper to 500 mg po daily and evaluate next two months after sees Neurosurgery and determine how long antibiotics should continue. (2) Sepsis: Code(s): A41.9 - Sepsis, unspecified organism Category: Medical Qualifiers: Sepsis type: sepsis due to unspecified organism Sepsis acute organ dysfunction status: unspecified Qualified Code(s): A41.9 - Sepsis, unspecified organism Plan: na Medications: New amoxicillin 500 mg PO DAILY 30 caps 1RF 30 days Coding Level of Care Code Est Pt Level 3 (05724) Diagnoses Osteomyelitis M86.9 Sepsis, due to unspecified organism, unspecified whether acute organ dysfunction present A41.9 Sepsis type: sepsis due to unspecified organism Sepsis acute organ dysfunction status: unspecified
== END 2025-05-25 14:15 | disposition home or self-care (01) ==
LOC: HO.HID 13:40
PROVIDERS: PCP Family Medicine; Visit Provider Internal Medicine
DX: M86.9 Osteomyelitis, unspecified (principal); A41.9 Sepsis, unspecified organism
CPT/HCPCS: 99213

== ENCOUNTER → 2025-05-25 13:40 | Outpatient (BNVA) | payer MEDICARE, SELFPAY | PROVIDERS: PCP Family Medicine; Visit Provider Internal Medicine | DX: A41.9 Sepsis, unspecified organism (principal); M86.9 Osteomyelitis, unspecified; Z79.2 Long term (current) use of antibiotics | CPT/HCPCS: 99212 ==

== ENCOUNTER → 2025-07-05 08:59 | Outpatient (BNV) | payer MEDICARE, SELFPAY | PROVIDERS: PCP Family Medicine; Visit Provider Radiology Diagnostic Radiology | DX: M48.062 Spinal stenosis, lumbar region with neurogenic claudication (principal) | CPT/HCPCS: 72158 ==

== ENCOUNTER 2025-07-05 09:00 | Outpatient (REF) | payer MEDICARE, SELFPAY ==
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
--- NOTE | ~2025-07-05 | MR_ITS ---
CLINICAL HISTORY: M00.9 - Pyogenic arthritis, F U OSTEOMYELITIS --- Additional Notes or Special Instructions: Follow-up on osteomyelitis Lumbar MRI Without and with intravenous Contrast: Comparison: 03/27/2025. Findings: No Spondylolysis Degenerative vertebral body subendplate fat replacement of bone marrow involving inferior L1, superior and inferior endplates of L2, and superior endplate of the L3 and posterior superior endplate of L2. No bone erosion or destruction. No intervertebral disc enhancement or evidence of discitis. No fractures. Paravertebral soft tissues: Unremarkable. Spinal cord signal and morphology is normal. No signs of arachnoiditis. T12-L1: No disc bulging. No foraminal stenosis. Conus medullaris is located at L1. L1-L2: There is posterior bilateral focal disc bulging with with mild foraminal stenosis. L2-L3: Enhancement degenerative inflammatory fat replacement of bone marrow involving superior L3 vertebral body consistent with degenerative Modic type 2. Modic type 3 low T1 signal involving inferior T2(subchondral sclerosis ) . Facet hypertrophy and posterior ligament invagination in broad-based posterior disc and vertebral body subluxation With advanced canal stenosis. L3-L4: Facet and posterior ligament hypertrophy and posterior broad-based 5 mm disc protrusion with advanced bilateral foraminal stenosis. L4-L5: There is mild anterolisthesis of L4 on L5. No pars defects. There is extensive facet hypertrophy and posterior ligament invagination with severe circumferential canal stenosis and bilateral foraminal stenosis L5-S1: Extensive facet hypertrophy without significant disc protrusion and advanced bilateral foraminal stenosis. Impression: 1. 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 Degree of L2 vertebral body enhancement has markedly decreased when compared to previous exam. 2. Multilevel circumferential degenerative spondylosis with advanced canal and foraminal stenosis not noticeably progressed when compared to prior study. The outstanding feature of this examination is severe circumferential canal stenosis and foraminal stenosis at L3-4, and L4-5. This document has been electronically signed by: Mike Garcia MD on 07/05/2025 21:01:30
--- OUTSIDE RECORDS SUMMARY | 2025-07-05 10:16 | XMS_ITS | Encounter Summary ---
Author Organization [facility] Address [address] [facility] [address] [place] [address] Phone Care Team Providers Care Senior Java Web Application Developer Name Role Phone Cornelia Membreno MD Primary Care Provider [phone] Cornelia Membreno MD Unavailable [phone] Encounter Details Date Type Department Care Team (Late st Contact Info) Description 05/01/2025 Procedure Pass Non-Invasive Cardiology [address] [place] [address] Social History Tobacco Use Types Packs/Day Years [...] Info) Description 12/05/2024 Procedure Pass Echo Lab [place] [place] [address] 10/29/2025 8:30 AM EST Appointment Echo Lab [address] [address] Cindy Russell DNP [address] [place] [address] 11/01/2025 9:10 AM EST Office Visit [facility] [address] [place] [address] Alejo Elam DO [address] [place] [address] 11/16/2025 11:40 AM EST Office Visit [facility] [address] [place] [address] 3rd Floor, [address] [address] Win Zheng MD [address] [place] [address] documented as of this encounter Visit Diagnoses Not on filedocumented in this encounter Additional Health Concerns Assessment Noted Time PHQ-2 Depression Total Score: 0 04/17/20 24 2:22 PM EDT documented as of this encounter Care Teams Senior Java Web Application Developer Relationship Specialty Start Date End Date Cornelia Membreno MD [address] [place] [address], [address] [place] [address] PCP - General 08/12/17 Cornelia Membreno MD [address] [place] [address], [address] [place] [address] Insurance Assigned Provider 01/28/25 documented as of this encounter Additional Source Comments The information contained in this document represents components of the legal health record. It is not the complete legal health record.[facility]
--- OUTSIDE RECORDS SUMMARY | 2025-07-05 10:16 | XMS_ITS | Encounter Summary ---
Author Organization [facility] Address [address] [place] [address] [address] [place] [address] Phone Support Name Relationship Address Phone Amy Varela Emergency Contact [address] [place] [address] Keysha Cox Emergency Contact [address] [place] [address] Care Team Providers Care Brusher Operator Name Role Phone Cornelia Membreno MD Primary Care Provider [phone] Bakari Henson MD Unavailable [phone] Art Ley MD Unavailable Akira Malik MD Unavailable [phone] Cornelia Membreno MD Unavailable [phone] Cornelia Membreno MD Unavailable [phone] Kaitlin Greene OT Unavailable [phone] Encounter Details Date Type Department Care Team (Late st Contact Info) Description 08/07/2021 Transcribe Orders [facility] Specimen Processing [address] [place] [address] Cornelia Membreno MD [address] [facility], [address] [place], [place] [id number] Social History Tobacco Use Types Packs/Day Years [...] high school, GED, job training, learning the [place] language, technical skills, or developing parenting skills)? [...] is your housing situation today? I have nicolerey michel 03/26/2021 How many times have you [...] Info) Description 12/05/2024 Procedure Pass Echo Lab [address] [place] [address] 10/29/2025 8:30 AM EST Appointment Echo Lab [address] [place] [address] Cindy Russell, MICHELLE [address] [place] [address], [address] [place] [address] 11/01/2025 9:10 AM EST Office Visit [facility] [address] [place] [address] Alejo Elam, [address] [place] [address] 11/16/2025 11:40 AM EST Office Visit [facility] [address] [place] [address] 3rd Floor, [address] [place] [address] Win Zheng MD [address] [place] [address], [address] [address] documented as of this encounter Visit Diagnoses [...] documented as of this encounter Care Teams Brusher Operator Relationship Specialty Start Date End Date Cornelia Membreno MD [address] [place] [address], [address] [place] [address] PCP - General 08/12/17 Bakari Henson MD [address] [place] [address] [email or web address] Historical LMR Provider 08/14/17 11/01/21 Art Ley MD [address] [place] [address] [email or web address] Historical LMR Provider 08/14/17 11/01/21 Akira Malik MD [address] [place] [address] [email or web address] Historical LMR Provider 08/14/17 11/01/21 Cornelia Membreno MD [address] [place] [address] [address] [place] [address] [email or web address] Insurance Assigned Provider 01/22/18 05/30/23 Cornelia Membreno MD [address] [place] [address], [address] [place] [address] Insurance Assigned Provider 01/28/25 Kaitlin Greene, OT [address] [place] [address] Transitions Industrial Psychology ProfessorArmoured Corps Officer Therapy 04/23/2504/24/25 documented as of this encounter Additional Source Comments The information contained in this document represents components of the legal health record. It is not the complete legal health record.[facility]
--- OUTSIDE RECORDS SUMMARY | 2025-07-05 10:16 | XMS_ITS | Encounter Summary ---
Author Organization [facility] Address [address] [place] [address] [place] [address] Phone Support Name Relationship Address Phone Amy Campbell Micnataliia Emergency Contact [address] [place] [address] Keysha Cox Emergency Contact [address] [place] [address] Care Team Providers Care Last Putter Away Name Role Phone Cornelia Membreno MD Primary Care Provider + [phone] Bakari Henson MD Unavailable [phone] Art Ley MD Unavailable Akira Malik MD Unavailable [phone] Cornelia Membreno MD Unavailable [phone] Cornelia Membreno MD Unavailable [phone] Kaitlin Greene OT Unavailable [phone] Encounter Details Date Type Department Care Team (Late st Contact Info) Description 09/10/2021 Procedure Pass [facility] Endoscopy Admitting Dept Virtual Department [address] [place] [address] Social History Tobacco Use Types Packs/Day Years [...] high school, GED, job training, learning the [place] language, technical skills, or developing parenting skills)? [...] housing situation today? I have nicole sing 03/26/2021 How many times have you move [...] Info) Description 12/05/2024 Procedure Pass Echo Lab [address] [place] [address] 10/29/2025 8:30 AM EST Appointment Echo Lab [address] [place] [address] Cindy Russell, [place] [address] [facility], [address] [place] [address] 11/01/2025 9:10 AM EST Office Visit [facility] [address] [place] [address] Alejo Elam DO 22 [place] [address] 11/16/2025 11:40 AM EST Office Visit [facility] [address] [facility] 3rd Floor, [address] [place] [address] Win Zheng MD [address] [place] [address], [address] [address] documented as of this encounter Visit Diagnoses [...] documented as of this encounter Care Teams Last Putter Away Relationship Specialty Start Date End Date Cornelia Membreno MD [address] [place] [address], [address] [place] [address] PCP - General 08/12/17 Bakari Henson MD [address] [place] [address] [address] [place] [address] Historical LMR Provider 08/14/17 11/01/21 Art Ley MD [address] [place] [address] [email or web address] Historical LMR Provider 08/14/17 11/01/21 Akira Malik MD [address] [place] [address], 2nd [place] [address] Historical LMR Provider 08/14/17 11/01/21 Cornelia Membreno MD [address] [place] [address], [address] [place] [address] [email or web address] Insurance Assigned Provider 01/22/18 05/30/23 Cornelia Membreno MD [address] [place] [address], [address] [place] [address] Insurance Assigned Provider 01/28/25 Kaitlin Greene, OT [address] [place] [address] Transitions Materials ClerkBalance Bridge Inspector Therapy 04/23/2504/24/25 documented as of this encounter Additional Source Comments The information contained in this document represents components of the legal health record. It is not the complete legal health record.[facility]
--- OUTSIDE RECORDS SUMMARY | 2025-07-05 10:16 | XMS_ITS | Encounter Summary ---
Author Organization [facility] Address [address] [place] [address] [place] [address] Phone Care Team Providers Care Parts Representative Name Role Phone Cornelia Membreno MD Primary Care Provider [phone] Cornelia Membreno MD Unavailable [phone] Kaitlin Greene OT Unavailable [phone] Reason for Visit * Reason Onset Date Comments Medication Refill 04/20/2025 Encounter Details Date Type Department Care Team (Late st Contact Info) Description 04/20/2025 Refill [facility] [address] [place] [address] [email or web address] Medication Refill Social History Tobacco Use Types Packs/Day Years [...] on file documented as of this encounter Functional Status * Calculated C-SSRS Risk Score (Lifetime/Recent) Answer Date of Assessment Author No Risk Indicated 04/22/2025 1:05 AM DYLANT Ezequiel Ramos RN * [place] Suicide Severity Rating Scale (Screener/Recent Self-Report) Question Answer Date of Assessment Author 1. Wish to be (Past 1 Month) No 04/22/2025 1:05 AM Ezequiel Bill RN 2. Non-Specific Active Suicidal Thoughts (Past 1 Month) No 04/22/2025 1:05 AM EDT Ezequiel Ramos RN 6. Suicidal Behavior (Lifetime) No 04/22/2025 1:05 AM DYLANT Ezequiel Ramos RN documented as of this encounter Progress Notes * Steff Iyer CMA - 04/20/2025 11:07 AM EDT Images from the original note were not included. Rx Care Gap Status - Instructions for Clinical Staff (prescriber discretion applies): > Please check PDMP/MassPAT for all controlled substances requested. Visit Info Last visit: 04/16/2025 Gia Byrd CNP - [facility] [place] > Requested f/u: Return in about 1 month (around 05/16/2025), or if symptoms worsen or fail to improve. Upcoming visit: 05/17/2025 Cornelia Membreno MD - [facility] ACTIONS TAKEN BY Steff Iyer CMA - Checked PDMP/MassPAT Opioid Rx Protocol - tramadol HCl Controlled substance renewals are at prescriber discretion. Pain management profile/toxicology testing (urine/saliva) may be considered annually or more frequently if clinically indicated. In-person visit in the past 2 years: Yes (Last in-person visit: [facility]16[facility]2025 [facility] Visit in the past 4 months: Yes No benzodiazepine on medication list Opioid agreement on file: No Pain management profile/toxicology testing in past 12 months: No * BrittneyKacie lundy - 04/20/2025 10:55 AM EDT Patient called in requesting a refill on the medication tramadol. Please contact and advise. Central Support Neurodiagnostic Technician (Please do not reply to this user; this inbox is not monitored.) Thank you. documented in this encounter Plan of Treatment Upcoming Encounters Date Type Department Care Team (Late st Contact Info) Description 12/05/2024 Procedure Pass [facility] [address] [place] [address] 10/29/2025 8:30 AM EST Appointment Echo [facility] [address] [place] [address] Cindy Russell DNP [address] [place] [address] 11/01/2025 9:10 AM EST Office Visit [facility] [address] [place] [address] [place] [address] Alejo Elam DO [address] [place] [address] 11/16/2025 11:40 AM EST Office Visit [facility] [address] [place] [address] 3rd Floor, [address] [address] Win Zheng MD [address] [place] [address] documented as of this encounter Visit Diagnoses Diagnosis Pain Generalized pain documented in this encounter Additional Health Concerns Assessment Noted Time PHQ-2 Depression Total Score: 0 04/17/20 24 2:22 PM EDT documented as of this encounter Care Teams Parts Representative Relationship Specialty Start Date End Date Cornelia Membreno MD [address] [place] [address], [address] [place] [address] [email or web address] PCP - General 08/12/17 Cornelia Membreno MD [address] [facility], [address] [place] [address] Insurance Assigned Provider 01/28/25 Kaitlin Greene, OT [address] [place] [address] [email or web address] Transitions Detective Automobile SectionSenior Reactor Operator Therapy 04/23/2504/24/25 documented as of this encounter Additional Source Comments The information contained in this document represents components of the legal health record. It is not the complete legal health record.[facility]
--- OUTSIDE RECORDS SUMMARY | 2025-07-05 10:16 | XMS_ITS | Encounter Summary ---
Author Organization [facility] Address [address] [place] [address] Care Team Providers Care Airline Radio Operator Name Role Phone Ruth Matthews MD Primary Care Provider [phone] Encounter Details Date Type Department Care Team (Late st Contact Info) Description 02/24/2025 Lab Requisition [facility] - Main Lab [address] [facility] [place] [address] Ruth Mathtews MD [address] [place] [address] Encounter for other general examination Social History [...] Antigen Negative Negative 02/24/2025 10:51 AM EDT [facility] C difficile Toxins A+B, EIA Negative Negative 02/24/2025 10:51 AM EDT [facility] Comment:NEGATIVE FOR TOXIN P RODUCING CLOSTRIDIOIDES DIFFICILE, NO ADDITIONAL TESTING IS NECESSARY. Stool Rectum structure / Unknown 02/23/2025 2:10 PM EDT 02/24/2025 9:42 AM EDT us Ruth Matthews MD LAB MICROBIOLOGY - GENERAL ORD ERABLES Final Result [facility] [address] [place] [address], documented in this encounter Visit Diagnoses Diagnosis Encounter for other general examination documented in this encounter Care Teams Airline Radio Operator Relationship Specialty Start Date End Date Ruth Matthews MD [address] [place] [address] PCP - General Internal Medicine 02/16/25 documented as of this encounter
--- OUTSIDE RECORDS SUMMARY | 2025-07-05 10:16 | XMS_ITS | Encounter Summary ---
Author Organization [facility] Address [address] [place] [address] [place] [address] Phone Care Team Providers Care Soaker Meat Name Role Phone Cornelia Membreno MD Primary Care Provider + [phone] Bakari Henson MD Unavailable [phone] Art Ley MD Unavailable [phone] Akira Malik MD Unavailable [phone] Cornelia Membreno MD Unavailable [phone] Cornelia Membreno MD Unavailable [phone] Kaitlin Greene OT Unavailable [phone] Encounter Details Date Type Department Care Team (Late st Contact Info) Description 11/22/2020 Procedure Pass [facility], Ct Scan - [address] [address] Social History Tobacco Use Types Packs/Day Years Used Date Smoking Tobacco: Never Smokeless Tobacco: Never Alcohol Use Standard Drinks/Week Comments Yes 0 (1 standard drink = 0.6 oz pur e alcohol) 1 or 2 daily Sex and Gender Information Value Date Recorded [...] Info) Description 12/05/2024 Procedure Pass [facility] [address] [place] [address] 10/29/2025 8:30 AM EST Appointment [facility] [address] [place] [address] Cindy Russell, MICHELLE [address] [place] [address] 11/01/2025 9:10 AM EST Office Visit [facility] [address] [place] [address] [place] [address] Alejo Elam DO [address] [place] [address] 11/16/2025 11:40 AM EST Office Visit [facility] [address] [place] [address] 3rd Floor, [address] [address] Win Zheng MD [address] [place] [address] documented as of this encounter Visit Diagnoses [...] documented as of this encounter Care Teams Soaker Meat Relationship Specialty Start Date End Date Cornelia Membreno MD [address] [place] [address], [address] [place] [address] PCP - General 08/12/17 Bakari Henson MD [address] [place] [address] [email or web address] Historical LMR Provider 08/14/17 11/01/21 Art Ley MD [address] [place] [address] [email or web address] Historical LMR Provider 08/14/17 11/01/21 Akira Malik MD [address] [place] [address] Historical LMR Provider 08/14/17 11/01/21 Cornelia Membreno MD [address] [place] [address], [address] [place] [address] Insurance Assigned Provider 01/22/18 05/30/23 Cornelia Membreno MD [address] [place] [address], [address] [place] [address] Insurance Assigned Provider 01/28/25 Kaitlin Greene, OT [address] [place] [address] Transitions Semiconductor ProcessorAssembler Convertible Top Therapy 04/23/2504/24/25 documented as of this encounter Additional Source Comments The information contained in this document represents components of the legal health record. It is not the complete legal health record.[facility]
--- OUTSIDE RECORDS SUMMARY | 2025-07-05 10:16 | XMS_ITS | Encounter Summary ---
Author Organization [facility] Address [address] [place] [address] [place] [address] Phone Care Team Providers Care Global Transportation Manager Name Role Phone Cornelia Membreno MD Primary Care Provider [phone] Cornelia Membreno MD Unavailable [phone] Kaitlin Greene OT Unavailable [phone] Encounter Details Date Type Department Care Team (Late st Contact Info) Description 07/26/2024 Procedure Pass [facility], Ct Scan - [address] [address] Social History Tobacco Use Types Packs/Day Years [...] 03/26/2021 Digital Access Answer Date Recorded No 03/17/2023 No 03/17/2023 Reliable internet access at home? Not on file 03/17/2023 Device with a working camera? Not on file Intimate Partner Violence Answer Date R ecorded Are you denied basic needs s uch as food, clothing, or medical care? No 07/26/2024 In the past 12 months have y ou been in a relationship with a person who hurts, threatens, or tries to control you? No 07/26/2024 Are you denied basic needs s [facility] as food, clothing, or medical care? No 07/26/2024 In the past 12 months have y ou been in a relationship with a person who hurts, threatens, or tries to control you? No 07/26/2024 Sex and Gender Information Value Date Recorded [...] Date of Assessment Author No Risk Indicated 07/26/2024 8:09 PM EDT Danna Boykin RN * [place] Suicide Severity Rating Scale (Screener/Recent Self-Report) Question Answer Date of Assessment Author 1. Wish to be (Past 1 Month) No 07/26/2024 8:09 PM EDT Maryjane Fuentes RN 2. Non-Specific Active Suicidal Thoughts (Past 1 Month) No 07/26/2024 8:09 PM EDT Maryjane Fuentes RN 6. Suicidal Behavior (Lifetime) No 07/26/2024 8:09 PM EDT Maryjane Fuentes RN documented as of this encounter Plan of Treatment Upcoming Encounters Date Type Department Care Team (Late st Contact Info) Description 12/05/2024 Procedure Pass [facility] [address] [address] 10/29/2025 8:30 AM EST Appointment [facility] [address] [address] Cindy Russell DNP [address] [place] [address] 11/01/2025 9:10 AM EST Office Visit [facility] [address] [place] [address] Alejo Elam DO [address] [place] [address] 11/16/2025 11:40 AM EST Office Visit [facility] [address] [place] [address] 3rd Floor, [address] [address] Win Zheng MD [address] [place] [address] documented as of this encounter Visit Diagnoses Not on filedocumented in this encounter Additional Health Concerns Infection Onset Date Last Indicated Resolved Time CDiff-Risk 07/27/2024 07/27/2024 07/27/2024 8:21 PM EDT Assessment Noted Time PHQ-2 Depression Total Score: 0 04/17/20 24 2:22 PM EDT documented as of this encounter Care Teams Global Transportation Manager Relationship Specialty Start Date End Date Cornelia Membreno MD [address] [facility], [address] [place] [address] [email or web address] PCP - General 08/12/17 Cornelia Membreno MD [address] [place] [address], [address] [place] [address] Insurance Assigned Provider 01/28/25 Kaitlin Greene, OT [address] [place] [address] [email or web address] Transitions Coding And Reimbursement SpecialistSolvent Recoverer Therapy 04/23/2504/24/25 documented as of this encounter Additional Source Comments The information contained in this document represents components of the legal health record. It is not the complete legal health record.[facility]
--- OUTSIDE RECORDS SUMMARY | 2025-07-05 10:16 | XMS_ITS | Encounter Summary ---
Author Organization [facility] Address [address] [place] [address] [place] [address] Phone Support Name Relationship Address Phone Amy Domínguezcecy Leblancangela Emergency Contact [address] [place] [address] Keysha Cox Emergency Contact [address] [place] [address] Care Team Providers Care Repairer Welding Equipment Name Role Phone Cornelia Membreno MD Primary Care Provider + [phone] Cornelia Membreno MD Unavailable [phone] Cornelia Membreno MD Unavailable [phone] Kaitlin Greene OT Unavailable [phone] Encounter Details Date Type Department Care Team (Late st Contact Info) Description 09/23/2022 Procedure Pass [address] [place] [address] Social History Tobacco Use Types Packs/Day Years [...] high school, GED, job training, learning the [place] language, technical skills, or developing parenting skills)? [...] Sign Reading Time Taken Comments Blood Pressure - - Pulse - - Temperature - - Respiratory Rate - - Oxygen Saturation - - Inhaled Oxygen Concentration - - Weight 102.1 kg (225 lb) 09/25/2022 6:28 PM EST Height 172.7 cm (5' 8 ) 09/25/2022 6:28 PM EST Body Mass Index 34.21 09/25/2022 6:28 PM EST documented in this encounter Plan of Treatment Upcoming Encounters Date Type Department Care Team (Late st Contact Info) Description 12/05/2024 Procedure Pass [facility] [place] [address] [place] [address] 10/29/2025 8:30 AM EST Appointment [facility] [place] [address] [place] [address] Cindy Russell, MICHELLE [address] [facility], [address] [place] [address] 11/01/2025 9:10 AM EST Office Visit [facility] [address] [place] [address] [place] [address] Alejo Elam DO [address] [place] [address] 11/16/2025 11:40 AM EST Office Visit [facility] [address] [place] [address] Dr 3rd Floor, [address] [address] Win Zheng MD [address] [place] [address] documented as of this encounter Visit Diagnoses Not on filedocumented in this encounter Additional Health Concerns Infection Onset Date Last Indicated Resolved Time CoV-Risk Comment:Per Ambulatory Triage Form 10/06/2022 10/06/202210/17 1:24 AM EST CDiff-Risk 07/17/2024 07/17/2024 07/17/2024 8:54 PM EDT CDiff-Risk 07/27/2024 07/27/2024 07/27/2024 8:21 PM EDT Assessment Noted Time PHQ-2 Depression Total Score: 1 08/29/20 19 12:06 PM EST documented as of this encounter Care Teams Repairer Welding Equipment Relationship Specialty Start Date End Date Cornelia Membreno MD [address] [place] [address], [address] [place] [address] PCP - General 08/12/17 Cornelia Membreno MD [address] [place] [address], [address] [place] [address] [email or web address] Insurance Assigned Provider 01/22/18 05/30/23 Cornelia Membreno MD [address] [place] [address], [address] [place] [address] [email or web address] Insurance Assigned Provider 01/28/25 Kaitlin Greene, OT [address] [place] [address] [email or web address] Transitions Gas Usage Meter ClerkVisual Educator Therapy 04/23/2504/24/25 documented as of this encounter Additional Source Comments The information contained in this document represents components of the legal health record. It is not the complete legal health record.[facility]
--- OUTSIDE RECORDS SUMMARY | 2025-07-05 10:16 | XMS_ITS | Encounter Summary ---
Author Organization [facility] Address [address] [facility] [address] [place] [address] Phone Care Team Providers Care Service Person Name Role Phone Cornelia Membreno MD Primary Care Provider [phone] Cornelia Membreno MD Unavailable [phone] Reason for Visit * Reason Comments Medication Refill Encounter Details Date Type Department Care Team (Late st Contact Info) Description 05/06/2025 Refill [facility] [address] [place] [address] [place], [place] [phone] Cornelia Membreno MD [address] [facility], [address] [place], [place] [phone] [email or web address] Medication Refill Social History Tobacco Use Types [...] Info) Description 12/05/2024 Procedure Pass [facility] [address] [address] 10/29/2025 8:30 AM EST Appointment [facility] [address] [place] [address] Cindy Russell, MICHELLE [address] [place] [address] 11/01/2025 9:10 AM EST Office Visit [facility] [address] [place] [address] Alejo Elam DO [address] [place] [address] 11/16/2025 11:40 AM EST Office Visit [facility] [address] [place] [address] 3rd Floor, [address] [address] Win Zheng MD [address] [place] [address] documented as of this encounter Visit Diagnoses Diagnosis Pain Generalized pain documented in this encounter Additional Health Concerns Assessment Noted Time PHQ-2 Depression Total Score: 0 04/17/20 24 2:22 PM EDT documented as of this encounter Care Teams Service Person Relationship Specialty Start Date End Date Cornelia Membreno MD [address] [place] [address], [address] [address] PCP - General 08/12/17 Cornelia Membreno MD [address] [place] [address], [address] [address] [email or web address] Insurance Assigned Provider 01/28/25 documented as of this encounter Additional Source Comments The information contained in this document represents components of the legal health record. It is not the complete legal health record.[facility]
--- OUTSIDE RECORDS SUMMARY | 2025-07-05 10:16 | XMS_ITS | Encounter Summary ---
Author Organization [facility] Address [address] [place] [address] Care Team Providers Care Chief Deputy Coroner Name Role Phone Ruth Matthews MD Primary Care Provider [phone] Encounter Details Date Type Department Care Team (Late st Contact Info) Description 02/26/2025 Lab Requisition [facility] - Main Lab [address] [place] [address] Ruth Matthews MD [address] [place] [address] Encounter for other general examination Social History [...] LAB CHEMISTRY METHOD 02/26/2025 12:59 PM EDT [facility] Blood Venous blood specimen / Unknown Venipuncture / Unknown 02/26/2025 5:59 AM EDT 02/26/2025 10:55 AM EDT us Ruth Matthews MD LAB BLOOD ORDERABLES Final Res ult [facility] [address] [place] [address], documented in this encounter Visit Diagnoses Diagnosis Encounter for other general examination documented in this encounter Care Teams Chief Deputy Coroner Relationship Specialty Start Date End Date Ruth Matthews MD [address] [place] [address] PCP - General Internal Medicine 02/16/25 documented as of this encounter
--- OUTSIDE RECORDS SUMMARY | 2025-07-05 10:16 | XMS_ITS | Encounter Summary ---
Author Organization [facility] Address [address] [place] [address] [place] [address] Phone Care Team Providers Care Wire Stockkeeper Name Role Phone Cornelia Membreno MD Primary Care Provider [phone] Cornelia Membreno MD Unavailable [phone] Kaitlin Greene OT Unavailable [phone] Encounter Details Date Type Department Care Team (Late st Contact Info) Description 04/22/2025 Procedure Pass [facility] [address] [place] [address] Social History Tobacco Use Types Packs/Day Years [...] Author No Risk Indicated 04/22/2025 1:05 AM EDT Ezequiel Ramos RN * [place] Suicide Severity Rating Scale (Screener/Recent Self-Report) Question Answer Date of Assessment Author 1. Wish to be (Past 1 Month) No 04/22/2025 1:05 AM EDT Ezequiel Ramos RN 2. Non-Specific Active Suicidal Thoughts (Past 1 Month) No 04/22/2025 1:05 AM EDT Ezequiel Ramos RN 6. Suicidal Behavior (Lifetime) No 04/22/2025 1:05 AM EDT Ezequiel Ramos RN documented as of this encounter Plan of Treatment Upcoming Encounters Date Type Department Care Team (Late st Contact Info) Description 12/05/2024 Procedure Pass [facility] [address] [place] [address] 10/29/2025 8:30 AM EST Appointment [facility] [address] [place] [address] Cindy Russell DNP [address] [place] [address] 11/01/2025 9:10 AM EST Office Visit [facility] [address] [place] [address] [place] [address] Alejo Elam DO [address] [place] [address] 11/16/2025 11:40 AM EST Office Visit [facility] [address] [place] [address] [address] Floor, [address] [address] Win Zheng MD [address] [place] [address] documented as of this encounter Visit Diagnoses Not on filedocumented in this encounter Additional Health Concerns Assessment Noted Time PHQ-2 Depression Total Score: 0 04/17/20 24 2:22 PM EDT documented as of this encounter Care Teams Wire Stockkeeper Relationship Specialty Start Date End Date Cornelia Membreno MD [address] [facility], [address] [place] [address] [email or web address] PCP - General 08/12/17 Cornelia Membreno MD [address] [facility], [address] [place] [address] [email or web address] Insurance Assigned Provider 01/28/25 Kaitlin Greene, OT [address] [place] [address] [email or web address] Transitions Dependency CounselorPrepress Technician Therapy 04/23/2504/24/25 documented as of this encounter Additional Source Comments The information contained in this document represents components of the legal health record. It is not the complete legal health record.[facility]
--- OUTSIDE RECORDS SUMMARY | 2025-07-05 10:16 | XMS_ITS | Encounter Summary ---
Author Organization [facility] Address [address] [place] [address] [place] [address] Phone Support Name Relationship Address Phone Amy Campbell Micnataliia Emergency Contact [address] [place] [address] Keysha Cox Emergency Contact [address] [place] [address] Care Team Providers Care Field Nurse Name Role Phone Cornelia Membreno MD Primary Care Provider + [phone] Bakari Henson MD Unavailable [phone] Art Ley MD Unavailable Akira Malik MD Unavailable [phone] Cornelia Membreno MD Unavailable [phone] Cornelia Membreno MD Unavailable [phone] Kaitlin Greene OT Unavailable [phone] Encounter Details Date Type Department Care Team (Late st Contact Info) Description 09/29/2021 Procedure Pass Echo [facility] [address] [place] [address] Social History Tobacco Use Types Packs/Day Years [...] high school, GED, job training, learning the [place] Island[place] language, technical skills, or developing parenting skills)? [...] Info) Description 12/05/2024 Procedure Pass Echo [facility] [address] [place] [address] 10/29/2025 8:30 AM EST Appointment Echo Lab [address] [place] [address] Cindy Russell, [facility] [address] [facility], [address] [place] [address] 11/01/2025 9:10 AM EST Office Visit [facility] [address] [place] [address] Alejo Elam DO 22 [place] [address] 11/16/2025 11:40 AM EST Office Visit [facility] [address] [facility] 3rd Floor, [address] [place] [address] Win Zheng MD 22 [facility], [address] [address] documented as of this encounter Visit Diagnoses [...] documented as of this encounter Care Teams Field Nurse Relationship Specialty Start Date End Date Cornelia Membreno MD [address] [place] [address], [address] [place] [address] PCP - General 08/12/17 Bakari Henson MD [address] [place] [address] [address] [place] [address] Historical LMR Provider 08/14/17 11/01/21 Art Ley MD [address] [place] [address] [email or web address] Historical LMR Provider 08/14/17 11/01/21 Akira Malik MD [address] [place] [address], 2nd [place] [address] Historical LMR Provider 08/14/17 11/01/21 Cornelia Membreno MD [address] [place] [address], [address] [place] [address] Insurance Assigned Provider 01/22/18 05/30/23 Cornelia Membreno MD [address] [place] [address], [address] [place] [address] Insurance Assigned Provider 01/28/25 Kaitlin Greene, OT [address] [place] [address] Transitions Book RetailerLegal Activity Adjudicator Therapy 04/23/2504/24/25 documented as of this encounter Additional Source Comments The information contained in this document represents components of the legal health record. It is not the complete legal health record.[facility]
--- OUTSIDE RECORDS SUMMARY | 2025-07-05 10:17 | XMS_ITS | Encounter Summary ---
Author Organization [facility] Address [address] [place] [address] Phone Care Team Providers Care Mathematics Improvement Teacher Name Role Phone Cornelia Membreno MD Primary Care Provider + [phone] Bakari Henson MD Unavailable [phone] Art Ley MD Unavailable Akira Malik MD Unavailable [phone] Cornelia Membreno MD Unavailable [phone] Cornelia Membreno MD Unavailable [phone] Kaitlin Greene OT Unavailable [phone] Encounter Details Date Type Department Care Team (Late st Contact Info) Description 10/30/2020 Ancillary Orders [facility],Outside Imaging [address] [place] [address] System, Provider Not In, [facility] [address] [address] Social History Tobacco Use Types Packs/Day Years Used Date Smoking Tobacco: Never Smokeless Tobacco: Never Alcohol Use Standard Drinks/Week Comments Yes 0 (1 standard drink = 0.6 oz pur e alcohol) daily Sex and Gender Information Value Date [...] Info) Description 12/05/2024 Procedure Pass Echo Lab [address] [place] [address] 10/29/2025 8:30 AM EST Appointment Echo Lab [address] [place] [address] Cindy Russell, MICHELLE [address] [place] [address] 11/01/2025 9:10 AM EST Office Visit [facility] [address] [place] [address] Alejo Elam DO [address] [place] [address] 11/16/2025 11:40 AM EST Office Visit [facility] [address] [place] [address] 3rd Floor, [address] [address] Win Zheng MD [address] [place] [address] documented as of this encounter Results * CT Chest Outside (No Interpretation) (06/12/2020 12:00 AM EDT) Narrative SYSTEMGENERATED, DOCUMENTATION - 10/30/2020 2:01 PM EST This study is for PACS storage only and not for interpretation. us Provider Not In System PhD IMG OUTSIDE IMAGING W /OUT INTERPRETATION Final Result documented in this encounter Visit Diagnoses Not on filedocumented [...] documented as of this encounter Care Teams Mathematics Improvement Teacher Relationship Specialty Start Date End Date Cornleia Membreno MD [address] [place] [address], [address] [address] PCP - General 08/12/17 Bakari Henson MD [address] [place] [address] [email or web address] Historical LMR Provider 08/14/17 11/01/21 Art Ley MD [address] [place] [address] [email or web address] Historical LMR Provider 08/14/17 11/01/21 Akira Malik MD [address] [place] [address] Historical LMR Provider 08/14/17 11/01/21 Cornelia Membreno MD [address] [place] [address], [address] [address] Insurance Assigned Provider 01/22/18 05/30/23 Cornelia Membreno MD [address] [facility], [address] [place] [address] [email or web address] Insurance Assigned Provider 01/28/25 Kaitlin Greene, OT [address] [place] [address] [email or web address] Transitions Chief Of PlanningButcher Supervisor Therapy 04/23/2504/24/25 documented as of this encounter Additional Source Comments The information contained in this document represents components of the legal health record. It is not the complete legal health record.[facility]
--- OUTSIDE RECORDS SUMMARY | 2025-07-05 10:17 | XMS_ITS | Encounter Summary ---
Author Organization [facility] Address [address] [place] [address] Phone Support Name Relationship Address Phone Amy Varela Emergency Contact [address] [place] [address] Keysha Cox Emergency Contact [address] [place] [address] Care Team Providers Care Survey Questionnaire Designer Name Role Phone Cornelia Membreno MD Primary Care Provider [phone] Bakari Henson MD Unavailable [phone] Cornelia Membreno MD Unavailable [phone] Art Ley MD Unavailable Tony Senior SAND TEMPERER Unavailable [phone] Chino Sales CAPITAL MARKETS SPECIALIST Unavailable [phone] Akira Malik MD Unavailable [phone] Nikunj Serna MD Unavailable [phone] Alejo Merlos MD Unavailable [phone] Jackelyn Phipps CAPITAL MARKETS SPECIALIST Unavailable [phone] Cornelia Membreno MD Unavailable [phone] Cornelia Membreno MD Unavailable [phone] Kaitlin Greene OT Unavailable [phone] Reason for Referral * Physical Therapy (Urgent) - Closed Specialty Diagnoses / Procedures Referred By Contac t Referred To Contact Physical Therapy Diagnoses Encounter for rehabilitation System, Provider Not In, [facility] [address] [address] [facility] [address] [place] [address] Phone: tel: Referral ID Status Reason Start Date Expiration Date Visits Re quested Visits Authorized [id number] Closed 09/09/2017 10/24/2018 99 99 Encounter Details Date Type Department Care Team (Latest Contact Info) Description 09/09/2017 Transcribe Orders [facility] [address] [place] [address] Cornelia Membreno MD [address] [place] [address], [address] [place] [address] [email or web address] Encounter for rehabilitation (Primary Dx) Social History Tobacco Use Types Packs/Day Years Used Date Smoking Tobacco: Never Smokeless Tobacco: Never Sex and Gender Information Value Date Recorded Sex Assigned at Male 05/13/2019 6:11 PM EDT Legal Sex Male 10:01 PM EDT Gender Identity Male 05/13/2019 6:11 PM EDT Sexual Orientation Straight 07/12/2019 1: 47 PM EDT documented as of this encounter Plan of Treatment Upcoming Encounters Date Type Department Care Team (Late st Contact Info) Description 12/05/2024 Procedure Pass Echo Lab [address] [place] [address] 10/29/2025 8:30 AM EST Appointment Echo [facility] [address] [place] [address] Cindy Russell, MICHELLE [address] [place] [address], [address] [place] [address] 11/01/2025 9:10 AM EST Office Visit [facility] [address] [place] [address] [place] [address] Alejo Elam DO [address] [place] [address] 11/16/2025 11:40 AM EST Office Visit [facility] [address] [place] [address] 3rd Floor, [address] [place] [address] Win Zheng MD [address] [facility], [address] [place] [address] [email or web address] Scheduled Referrals Name Type Priority Associated Diagnoses Orde r Schedule Ambulatory referral to [facility] Physical Therapy Outpatient Referral Routine Encounter for rehabilitation Ordered: 09/09/2017 documented as of this encounter Visit Diagnoses Diagnosis Encounter for rehabilitation- Primary documented in this encounter Additional Health Concerns Infection Onset Date Last Indicated Resolved Time CoV-Risk 03/26/2020 03/26/2020 04/09/2020 1:23 AM EDT CoV-Risk Comment:Per Ambulatory Triage Form 10/14/2021 10/16/202110/26 1:24 AM EST CoV-Risk Comment:Per Ambulatory Triage Form 10/06/2022 10/06/202210/17 1:24 AM EST CDiff-Risk 07/17/2024 07/17/2024 07/17/2024 8:54 PM EDT CDiff-Risk 07/27/2024 07/27/2024 07/27/2024 8:21 PM EDT documented as of this encounter Care Teams Survey Questionnaire Designer Relationship Specialty Start Date End Date Cornelia Membreno MD [address] [place] [address], [address] [place] [address] PCP - General 08/12/17 Bakari Henson MD [address] [place] [address] Historical LMR Provider 08/14/17 11/01/21 Cornelia Membreno MD [address] [place] [address], [address] [place] [address] Historical LMR Provider 08/14/17 Art Ley MD [address] [place] [address] [email or web address] Historical LMR Provider 08/14/17 11/01/21 Tony Senior, GAMAL [address] [place] [address] 2_[place] [address] [email or web address] Historical LMR Provider 08/14/17 02/06/20 Chino Sales, CAPITAL MARKETS SPECIALIST [address] [place] [address], [address] [place] [address] Historical LMR Provider 08/14/17 02/06/20 Akira Malik MD [address] [place] [address], 2nd [place] [address] Historical LMR Provider 08/14/17 11/01/21 Nikunj Serna MD [address] [place] [address], [address] [place] [address] Historical LMR Provider 08/14/17 02/06/20 Alejo Merlos MD [address] [place] [address], [address] [place] [address] Historical LMR Provider 08/14/17 Jackelyn Phipps, TOSHIA [address] [place] [address], [address] [place] [address] [email or web address] Historical LMR Provider 08/14/1702/05 Cornelia Membreno MD [address] [facility], [address] [place] [address] [email or web address] Insurance Assigned Provider 01/22/18 05/30/23 Cornelia Membreno MD [address] [facility], [address] [place] [address] [email or web address] Insurance Assigned Provider 01/28/25 Kaitlin Greene, OT [address] [place] [address] [email or web address] Transitions Crayon Sorting Machine FeederSenior Project Manager Therapy 04/23/25 04/24/25 documented as of this encounter Additional Source Comments The information contained in this document represents components of the legal health record. It is not the complete legal health record.[facility]
--- OUTSIDE RECORDS SUMMARY | 2025-07-05 10:17 | XMS_ITS | Encounter Summary ---
Author Organization [facility] Address [address] [place] [address] Care Team Providers Care Assistant Property Manager Name Role Phone Ruth Matthews MD Primary Care Provider [phone] Encounter Details Date Type Department Care Team (Late st Contact Info) Description 02/20/2025 Lab Requisition [facility] - Main Lab [address] [place] [address] Ruth Matthews MD [address] [place] [address] Encounter for other general examination Social History [...] LAB CHEMISTRY METHOD 02/20/2025 11:24 AM EDT [facility] Blood Venous blood specimen / Unknown Venipuncture / Unknown 02/20/2025 7:07 AM EDT 02/20/2025 9:43 AM EDT Ruth Matthews MD LAB BLOOD ORDERABLES Final Res ult Performing Organization Address [facility]/ZIP Co de Phone Number [facility] [address] [place] [address], * (ABNORMAL) Sodium (02/20/2025 7:07 AM EDT) Sodium 128(L) 133 - 145 mmol/L LAB CHEMISTRY METHOD 02/20/2025 11:24 AM EDT [facility] Blood Venous blood specimen / Unknown Venipuncture / Unknown 02/20/2025 7:07 AM EDT 02/20/2025 9:43 AM EDT Ruth Matthews MD LAB BLOOD ORDERABLES Final Res ult Performing Organization Address [facility] Co de Phone Number [facility] [address] [place] [address], documented in this encounter Visit Diagnoses Diagnosis Encounter for other general examination documented in this encounter Care Teams Assistant Property Manager Relationship Specialty Start Date End Date Ruth Matthews MD [address] [place] [address] PCP - General Internal Medicine 02/16/25 documented as of this encounter
--- OUTSIDE RECORDS SUMMARY | 2025-07-05 10:17 | XMS_ITS | Encounter Summary ---
Author Organization [facility] Address [address] [place] [address] Phone Support Name Relationship Address Phone Amy Varela Emergency Contact [address] [place] [address] Keysha Cox Emergency Contact [address] [place] [address] Care Team Providers Care Area Director Of Home Health Sales Name Role Phone Cornelia Membreno MD Primary Care Provider [phone] Bakari Henson MD Unavailable [phone] Cornelia Membreno MD Unavailable [phone] Art Ley MD Unavailable Tony Senior ARC WELDER APPRENTICE Unavailable Chino Sales GLASS CARRIER Unavailable [phone] Akira Malik MD Unavailable [phone] Nikunj Serna MD Unavailable [phone] Alejo Merlos MD Unavailable [phone] Jackelyn Phipps GLASS CARRIER Unavailable [phone] Cornelia Membreno MD Unavailable [phone] Cornelia Membreno MD Unavailable [phone] Kaitlin Greene OT Unavailable [phone] Reason for Referral * Consultation (Routine) - Closed Specialty Diagnoses / Procedures Referred By Contac t Referred To Contact Cardiac Rehabilitation Diagnoses S/P aortic valve replacement Kaila Hendrix, ARC WELDER APPRENTICE [address] [facility] [place] [address] Phone: tel: fax: [facility] [address] [place] [address] Phone: tel: Referral ID Status Reason Start Date Expiration Date Visits Re quested Visits Authorized [id number] Closed 08/16/2019 08/16/2020 1 1 Encounter Details Date Type Department Care Team ([facility] Contact Info) Description 08/16/2019 Transcribe Orders Virtual Department [address] [place] [address] Kaila Hendrix NP [address] [place] [address] S/P aortic valve replacement (Primary Dx) Social History Tobacco Use Types [...] Encounters Date Type Department Care Team (Late Contact Info) Description 12/05/2024 Procedure Pass Echo Lab [address] [place] [address] 10/29/2025 8:30 AM EST Appointment Echo Lab [address] [place] [address] Cindy Russell, [facility] [address] [facility], [address] [place] [address] 11/01/2025 9:10 AM EST Office Visit [facility] [address] [place] [address] [place] [address] Alejo Elam DO [address] [place] [address] 11/16/2025 11:40 AM EST Office Visit [facility] [address] [facility] 3rd Floor, [address] [place] [address] Win Zheng MD [address] [facility], [address] [place] [address] [email or web address] Scheduled Referrals Name Type Priority Associated Diagnoses Orde r Schedule Ambulatory referral to [facility] Cardiac Rehab Outpatient Referral Routine S/P aortic valve replacement Ordered: 08/16/2019 documented as of this encounter Visit Diagnoses Diagnosis S/P aortic valve replacement- Primary Heart valve replaced by other means documented in this encounter Additional Health Concerns Infection Onset Date Last Indicated Resolved Time CoV-Risk 03/26/2020 03/26/2020 04/09/2020 1:23 AM EDT CoV-Risk Comment:Per Ambulatory Triage Form 10/14/2021 10/16/202110/26 1:24 AM EST CoV-Risk Comment:Per Ambulatory Triage Form 10/06/2022 10/06/202210/17 1:24 AM EST CDiff-Risk 07/17/2024 07/17/2024 07/17/2024 8:54 PM EDT CDiff-Risk 07/27/2024 07/27/2024 07/27/2024 8:21 PM EDT Assessment Noted Time PHQ-2 Depression Total Score: 0 05/25/20 8:57 AM EDT documented as of this encounter Care Teams Area Director Of Home Health Sales Relationship Specialty Start Date End Date Cornelia Membreno MD [address] [place] [address], [address] [place] [address] PCP - General 08/12/17 Bakari Henson MD [address] [place] [address] Historical LMR Provider 08/14/17 11/01/21 Cornelia Membreno MD [address] [place] [address], [address] [place] [address] Historical LMR Provider 08/14/17 Art Ley MD [address] [place] [address] [email or web address] Historical LMR Provider 08/14/17 11/01/21 Tony Senior, GAMAL [address] [place] [address] 2_[place] [address] [email or web address] Historical LMR Provider 08/14/17 02/06/20 Chino Sales CNP [address] [place] [address] Historical LMR Provider 08/14/17 02/06/20 Akira Malik MD [address] [place] [address] Historical LMR Provider 08/14/17 11/01/21 Nikunj Serna MD [address] [place] [address], [address] [address] Historical LMR Provider 08/14/17 02/06/20 Alejo Merlos MD [address] [facility], [address] [place] [address] Historical LMR Provider 08/14/17 Jackelyn Phipps CNP [address] [facility], [address] [place] [address] Historical LMR Provider 08/14/1702/05 Cornelia Membreno MD [address] [facility], [address] [place] [address] Insurance Assigned Provider 01/22/18 05/30/23 Cornelia Membreno MD [address] [place] [address], [address] [place] [address] Insurance Assigned Provider 01/28/25 Kaitlin Greene, [address] [address] Transitions Department DirectorGeoscience Laboratory Technician Therapy 04/23/25 04/24/25 documented as of this encounter Additional Source Comments The information contained in this document represents components of the legal health record. It is not the complete legal health record.[facility]
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
--- OUTSIDE RECORDS SUMMARY | 2025-07-05 10:17 | XMS_ITS | Encounter Summary ---
Author Organization [facility] Address [address] [place] [address] Care Team Providers Care Maintenance Mgr Name Role Phone Ruth Matthews MD Primary Care Provider Encounter Details Date Type Department Care Team (Late st Contact Info) Description 02/19/2025 Lab Requisition [facility] - Main Lab [address] [facility] [place] [address] Ruth Matthews MD [address] [place] [address] Encounter for other general examination Social History [...] CBC auto differential (02/19/2025 6:29 AM EDT) [facility] Signature WBC 6.4 4.8 - 10.8 K/mcL LAB HEMETOLOGY METHOD 02/19/2025 11:08 AM [facility] RBC 3.00(L) 4.50 - 5.50 M/mcL LAB HEMETOLOGY METHOD 02/19/2025 11:08 AM [facility] Hemoglobin 9.1(L) 13.5 - 17.5 g/dL LAB HEMETOLOGY METHOD 02/19/2025 11:08 AM [facility] Hematocrit 28.3(L) 42.0 - 54.0 % LAB HEMETOLOGY METHOD 02/19/2025 11:08 AM [facility] MCV 94.6 79.0 - 98.0 FL LAB HEMETOLOGY METHOD 02/19/2025 11:08 AM [facility] MCH 30.4 27.0 - 32.0 pcg LAB HEMETOLOGY METHOD 02/19/2025 11:08 AM [facility] MCHC 32.2 32.0 - 37.0 g/dL LAB HEMETOLOGY METHOD 02/19/2025 11:08 AM [facility] RDW 14.1 11.0 - 15.0 % LAB HEMETOLOGY METHOD 02/19/2025 11:08 AM [facility] Platelets 591(H) 130 - 400 K/mcL LAB HEMETOLOGY METHOD 02/19/2025 11:08 AM [facility] MPV 9.3 7.0 - 11.0 FL LAB HEMETOLOGY METHOD 02/19/2025 11:08 AM [facility] NRBC 0.0 <1.0 % LAB HEMETOLOGY METHOD 02/19/2025 11:08 AM [facility] NRBC Absolute 0.00 <0.10 K/mcL LAB HEMETOLOGY METHOD 02/19/2025 11:08 AM [facility] Neutrophils Relative 49.1 % LAB HEMETOLOGY METHOD 02/19/2025 11:08 AM [facility] Lymphocytes Relative 21.6 % LAB HEMETOLOGY METHOD 02/19/2025 11:08 AM [facility] Monocytes Relative 23.1 % LAB HEMETOLOGY METHOD 02/19/2025 11:08 AM [facility] Eosinophils Relative 4.9 % LAB HEMETOLOGY METHOD 02/19/2025 11:08 AM [facility] Basophils Relative 1.1 % LAB HEMETOLOGY METHOD 02/19/2025 11:08 AM [facility] Immature Granulocytes Relative 0.2 % LAB HEMETOLOGY METHOD 02/19/2025 11:08 AM [facility] Neutrophils Absolute 3.12 1.50 - 7.00 K/mcL LAB HEMETOLOGY METHOD 02/19/2025 11:08 AM [facility] Lymphocytes Absolute 1.37 1.00 - 5.00 K/mcL LAB HEMETOLOGY METHOD 02/19/2025 11:08 AM [facility] Monocytes Absolute 1.47(H) 0.20 - 1.00 K/mcL LAB HEMETOLOGY METHOD 02/19/2025 11:08 AM [facility] Eosinophils Absolute 0.31 0.00 - 0.50 K/mcL LAB HEMETOLOGY METHOD 02/19/2025 11:08 AM [facility] Basophils Absolute 0.07 0.00 - 0.20 K/mcL LAB HEMETOLOGY METHOD 02/19/2025 11:08 AM [facility] Immature Granulocytes Absolute 0.01 0.00 - 0.03 K/mcL LAB HEMETOLOGY METHOD 02/19/2025 11:08 AM EDT [facility] Blood Venous blood specimen / Unknown Venipuncture / Unknown 02/19/2025 6:29 AM EDT 02/19/2025 10:04 AM EDT Ruth Matthews MD LAB BLOOD ORDERABLES Final Res ult Performing Organization Address City/[facility]/ZIP Co de Phone Number [facility] [address] [place] [address], [place] [phone] * (ABNORMAL) Sedimentation rate (02/19/2025 6:29 AM EDT) Pathologist [facility] Sed Rate 80(H) 0 - 20 mm/hr LAB HEMETOLOGY METHOD 02/19/2025 11:22 AM EDT [facility] Blood Venous blood specimen / Unknown Venipuncture / Unknown 02/19/2025 6:29 AM EDT 02/19/2025 10:04 AM EDT Ruth Matthews MD LAB BLOOD ORDERABLES Final Res ult Performing Organization Address [facility] Co de Phone Number [facility] [address] [place] [address], [place] [phone] * (ABNORMAL) C-reactive protein (02/19/2025 6:29 AM EDT) C-Reactive Protein 7.99(H) <=0.50 mg/dL LAB CHEMISTRY METHOD 02/19/2025 1:47 PM EDT [facility] Blood Venous blood specimen / Unknown Venipuncture / Unknown 02/19/2025 6:29 AM EDT 02/19/2025 10:04 AM EDT Ruth Matthews MD LAB BLOOD ORDERABLES Final Res ult Performing Organization Address City/[facility]/ZIP Co de Phone Number [facility] [address] [place] [address], [place] [phone] * Creatine kinase (02/19/2025 6:29 AM EDT) [facility] Total CK 149 22 - 269 unit/L LAB CHEMISTRY METHOD 02/19/2025 1:47 PM EDT [facility] Blood Venous blood specimen / Unknown Venipuncture / Unknown 02/19/2025 6:29 AM EDT 02/19/2025 10:04 AM EDT us Ruth Matthews MD LAB BLOOD ORDERABLES Final Res ult [facility] [address] [place] [address], [place] [phone] * (ABNORMAL) Basic metabolic panel (02/19/2025 6:29 AM EDT) [facility] Sodium 127(L) 133 - 145 mmol/L LAB CHEMISTRY METHOD 02/19/2025 1:47 PM [facility] Potassium 4.7 3.5 - 5.5 mmol/L LAB CHEMISTRY METHOD 02/19/2025 1:47 PM [facility] Chloride 91(L) 96 - 110 mmol/L LAB CHEMISTRY METHOD 02/19/2025 1:47 PM [facility] CO2 23 21 - 32 mmol/L LAB CHEMISTRY METHOD 02/19/2025 1:47 PM [facility] Anion Gap 13(H) 3 - 11 LAB CHEMISTRY METHOD 02/19/2025 1:47 PM T [facility] Glucose 133(H) 70 - 100 mg/dL LAB CHEMISTRY METHOD 02/19/2025 1:47 PM [facility] BUN 20 5 - 25 mg/dL LAB CHEMISTRY METHOD 02/19/2025 1:47 PM [facility] Creatinine 1.08 0.70 - 1.30 mg/dL LAB CHEMISTRY METHOD 02/19/2025 1:47 PM EDT [facility] eGFR 72 >=60 mL/min/1. 73m2 LAB CHEMISTRY METHOD 02/19/2025 1:47 PM EDT [facility] Comment:Calculation based on the Chronic Kidney Disease Epidemiology Collaboration (CKD-EPI) equation refit without adjustment for race. BUN/Creatinine Ratio 18.5 LAB CHEMISTRY METHOD 02/19/2025 1:47 PM EDT [facility] Calcium 9.2 8.5 - 10.5 mg/dL LAB CHEMISTRY METHOD 02/19/2025 1:47 PM EDT [facility] Blood Venous blood specimen / Unknown Venipuncture / Unknown 02/19/2025 6:29 AM EDT 02/19/2025 10:04 AM EDT us Ruth Matthews MD LAB BLOOD ORDERABLES Final Res ult [facility] [address] [place] [address], documented in this encounter Visit Diagnoses Diagnosis Encounter for other general examination documented in this encounter Care Teams Maintenance Mgr Relationship Specialty Start Date End Date Ruth Matthews MD [address] [place] [address] PCP - General Internal Medicine 02/16/25 documented as of this encounter
--- OUTSIDE RECORDS SUMMARY | 2025-07-05 10:17 | XMS_ITS | Encounter Summary ---
Author Organization [facility] Address [address] [place] [address] Care Team Providers Care Marketing And Outreach Coordinator Name Role Phone Ruth Matthews MD Primary Care Provider [phone] Encounter Details Date Type Department Care Team (Late st Contact Info) Description 02/17/2025 Lab Requisition [facility] - Main Lab [address] [facility] [place] [address] Ruth Matthews MD [address] [place] [address] Encounter for other general examination Social History [...] LAB CHEMISTRY METHOD 02/17/2025 11:38 AM EDT [facility] Urine Urine specimen obtained by clean catch procedure / Unknown 02/17/2025 4:00 AM EDT 02/17/2025 10:23 AM EDT us Ruth Matthews MD LAB URINE ORDERABLES Final Res ult Performing Organization Address [facility]/ZIP Co de Phone Number [facility] [address] [place] [address], [place] [phone] * Sodium, urine, random (02/17/2025 4:00 AM EDT) Sodium, Ur 23 mmol/L LAB CHEMISTRY METHOD 02/17/2025 11:[address] [facility] Urine Urine specimen obtained by clean catch procedure / Unknown 02/17/2025 4:00 AM EDT 02/17/2025 10:23 AM EDT us Ruth Matthews MD LAB URINE ORDERABLES Final Res ult Performing Organization Address [facility] Co de Phone Number [facility] [address] [place] [address], [place] [phone] documented in this encounter Visit Diagnoses Diagnosis Encounter for other general examination documented in this encounter Care Teams Marketing And Outreach Coordinator Relationship Specialty Start Date End Date Ruth Matthews MD [address] [place] [address] PCP - General Internal Medicine 02/16/25 documented as of this encounter
--- OUTSIDE RECORDS SUMMARY | 2025-07-05 10:17 | XMS_ITS | Encounter Summary ---
Author Organization [facility] Address [address] [place] [address] Phone Support Name Relationship Address Phone Amy Campbell Micnataliia Emergency Contact [address] [place] [address] Keysha Cox Emergency Contact [address] [place] [address] Care Team Providers Care Rivet Heater Name Role Phone Cornelia Membreno MD Primary Care Provider [phone] Bakari Henson MD Unavailable [phone] Cornelia Membreno MD Unavailable [phone] Art Ley MD Unavailable Tony Senior INJECTION MOLDING MACHINE OFFBEARER Unavailable [phone] Chino Sales CLINICAL LAB SCIENTIST Unavailable [phone] Akira Malik MD Unavailable [phone] Nikunj Serna MD Unavailable [phone] Alejo Merlos MD Unavailable [phone] Jackelyn Phipps CLINICAL LAB SCIENTIST Unavailable [phone] Cornelia Membreno MD Unavailable [phone] Cornelia Membreno MD Unavailable [phone] Kaitlin Greene OT Unavailable Encounter Details Date Type Department Care Team (Latest Contact Info) Description 08/22/2019 Transcribe Orders Non-Invasive Cardiology [address] [place], [place] [id number] Colton Farr MD [address] [place] [address] [email or web address] Essential hypertension (Primary Dx) Social History Tobacco Use Types [...] Info) Description 12/05/2024 Procedure Pass Echo [facility] [address] [address] 10/29/2025 8:30 AM EST Appointment Echo Lab [address] [address] Cindy Russell DNP [address] [place] [address] 11/01/2025 9:10 AM EST Office Visit [facility] [address] [place] [address] Alejo Elam DO [address] [place] [address] 11/16/2025 11:40 AM EST Office Visit [facility] [address] [place] [address] [address]rd Floor, [address] [address] Win Zheng MD [address] [place] [address] documented as of this encounter Results * ECG 12-LEAD (08/22/2019 9:46 AM EDT) Ventricular Rate EKG/MIN 63 BPM [facility] Atrial Rate 63 BPM [facility] SD Interval 128 ms [facility] QRS Duration 118 ms [facility] QT Interval 466 ms [facility] QTC Interval 476 ms [facility] P [place]is[place] 56 degrees [facility] R Wave [place] 100 degrees [facility] T Wave [place] 251 degrees [facility] 08/22/2019 9:46 AM EDT 08/22/2019 1:39 PM EDT Narrative [facility] - 08/22/2019 1:39 PM EDT Normal sinus rhythm Possible Left atrial enlargement Right bundle branch block T wave abnormality, consider inferior ischemia Abnormal ECG When compared with ECG of 13-JUL-2019 08:10, Vent. rate has decreased BY 44 BPM T wave inversion now evident in Inferior leads Confirmed by WIN ZHENG MD ([id number]) on 08/22/2019 1:39:11 PM us Colton Farr MD ECG ORDERABLES Final Res ult [facility] documented in this encounter Visit Diagnoses Diagnosis Essential hypertension- Primary Unspecified essential hypertension Essential hypertension Unspecified essential hypertension documented in this encounter Additional Health Concerns [...] documented as of this encounter Care Teams Rivet Heater Relationship Specialty Start Date End Date Cornelia Memrbeno MD [address] [place] [address], [address] [place] [address] PCP - General 08/12/17 Bakari Henson MD [address] [place] [address] [email or web address] Historical LMR Provider 08/14/17 11/01/21 Cornelia Membreno MD [address] [place] [address], [address] [place] [address] Historical LMR Provider 08/14/17 Art Ley MD [address] [place] [address] [email or web address] Historical LMR Provider 08/14/17 11/01/21 Tony Senior, GAMAL [address] [place] [address] 2_[place] [address] [email or web address] Historical LMR Provider 08/14/17 02/06/20 Chino Sales, TOSHIA [address] [place] [address], [address] [place] [address] Historical LMR Provider 08/14/17 02/06/20 Akira Malik MD [address] [place] [address] Historical LMR Provider 08/14/17 11/01/21 Nikunj Serna MD [address] [place] [address], [address] [place] [address] Historical LMR Provider 08/14/17 02/06/20 Alejo Merlos MD [address] [place] [address], [address] [place] [address] Historical LMR Provider 08/14/17 Jackelyn Phipps CNP [address] [place] [address], [address] [address] Historical LMR Provider 08/14/1702/05 Cornelia Membreno MD [address] [place] [address], [address] [place] [address] Insurance Assigned Provider 01/22/18 05/30/23 Cornelia Membreno MD [address] [place] [address], [address] [place] [address] Insurance Assigned Provider 01/28/25 Kaitlin Greene, OT [address] [place] [address] Transitions Clinical Laboratory TechnicianFiltering Machine Tender Helper Therapy 04/23/25 04/24/25 documented as of this encounter Additional Source Comments The information contained in this document represents components of the legal health record. It is not the complete legal health record.[facility]
--- OUTSIDE RECORDS SUMMARY | 2025-07-05 10:17 | XMS_ITS | Encounter Summary ---
Author Organization [facility] Address [address] [place] [address] Care Team Providers Care Track Service Worker Name Role Phone Ruth Matthews MD Primary Care Provider [phone] Encounter Details Date Type Department Care Team (Late st Contact Info) Description 02/17/2025 Lab Requisition [facility] - Main Lab [address] [place] [address] Ruth Matthews MD [address] [place] [address] Encounter for other general examination Social History [...] Hold for add-ons. 02/17/2025 12:01 PM EDT [facility] Comment:Auto resulted. Blood Venous blood specimen / Unknown 02/17/2025 5:51 AM EDT 02/17/2025 10:38 AM EDT us Ruth Matthews MD LAB BLOOD ORDERABLES Final Res ult Performing Organization Address City/[facility]/ZIP Co de Phone Number [facility] [address] [place] [address], [place] [phone] * (ABNORMAL) Osmolality (02/17/2025 5:51 AM EDT) [facility] Osmolality Alfredo 274(L) 280 - 300 mOsm/kg LAB CHEMISTRY METHOD 02/17/2025 11:47 AM EDT [facility] Blood Venous blood specimen / Unknown Venipuncture / Unknown 02/17/2025 5:51 AM EDT 02/17/2025 9:33 AM EDT us Ruth Matthews MD LAB BLOOD ORDERABLES Final Res ult Performing Organization Address [facility] Co de Phone Number [facility] [address] [place] [address], [place] [phone] * (ABNORMAL) Comprehensive metabolic panel (02/17/2025 5:51 AM EDT) [facility] Sodium 128(L) 133 - 145 mmol/L LAB CHEMISTRY METHOD 02/17/2025 11:31 AM T [facility] Potassium 4.4 3.5 - 5.5 mmol/L LAB CHEMISTRY METHOD 02/17/2025 11:31 AM EDT [facility] Chloride 89(L) 96 - 110 mmol/L LAB CHEMISTRY METHOD 02/17/2025 11:31 AM EDT [facility] CO2 33(H) 21 - 32 mmol/L LAB CHEMISTRY METHOD 02/17/2025 11:31 AM T [facility] Anion Gap 6 3 - 11 LAB CHEMISTRY METHOD 02/17/2025 11:31 AM EDT [facility] Glucose 126(H) 70 - 100 mg/dL LAB CHEMISTRY METHOD 02/17/2025 11:31 AM [facility] BUN 18 5 - 25 mg/dL LAB CHEMISTRY METHOD 02/17/2025 11:31 AM [facility] Creatinine 0.89 0.70 - 1.30 mg/dL LAB CHEMISTRY METHOD 02/17/2025 11:31 AM [facility] eGFR 90 >=60 mL/min/1. 73m2 LAB CHEMISTRY METHOD 02/17/2025 11:31 AM [facility] Comment:Calculation based on the Chronic Kidney Disease Epidemiology Collaboration (CKD-EPI) equation refit without adjustment for race. BUN/Creatinine Ratio 20.2 LAB CHEMISTRY METHOD 02/17/2025 11:31 AM [facility] Calcium 9.1 8.5 - 10.5 mg/dL LAB CHEMISTRY METHOD 02/17/2025 11:31 AM [facility] AST (SGOT) 49(H) 10 - 42 unit/L LAB CHEMISTRY METHOD 02/17/2025 11:31 AM [facility] ALT (SGPT) 73(H) 10 - 60 unit/L LAB CHEMISTRY METHOD 02/17/2025 11:31 AM [facility] Alkaline Phosphatase 178(H) 42 - 121 unit/L LAB CHEMISTRY METHOD 02/17/2025 11:31 AM [facility] Total Protein 6.7 6.0 - 8.0 g/dL LAB CHEMISTRY METHOD 02/17/2025 11:31 AM [facility] Albumin 2.7(L) 3.2 - 5.0 g/dL LAB CHEMISTRY METHOD 02/17/2025 11:31 AM [facility] Total Bilirubin 0.8 0.0 - 1.4 mg/dL LAB CHEMISTRY METHOD 02/17/2025 11:31 AM [facility] Blood Venous blood specimen / Unknown Venipuncture / Unknown 02/17/2025 5:51 AM EDT 02/17/2025 9:33 AM EDT us Ruth Matthews MD LAB BLOOD ORDERABLES Final Res ult [facility] ([facility] [address] [place] [address], documented in this encounter Visit Diagnoses Diagnosis Encounter for other general examination documented in this encounter Care Teams Track Service Worker Relationship Specialty Start Date End Date Ruth Matthews MD [address] [place] [address] PCP - General Internal Medicine 02/16/25 documented as of this encounter
--- OUTSIDE RECORDS SUMMARY | 2025-07-05 10:17 | XMS_ITS | Encounter Summary ---
Author Organization [facility] Address [address] [place] [address] [place] [address] Phone Support Name Relationship Address Phone Amy Campbell Micnataliia Emergency Contact [address] [place] [address] Keysha Cox Emergency Contact [address] [place] [address] Care Team Providers Care 2Nd Grade Teacher Name Role Phone Cornelia Membreno MD Primary Care Provider + [phone] Bakari Henson MD Unavailable [phone] Art Ley MD Unavailable Akira Malik MD Unavailable [phone] Cornelia Membreno MD Unavailable [phone] Cornelia Membreno MD Unavailable [phone] Kaitlin Greene OT Unavailable [phone] Encounter Details Date Type Department Care Team (Late st Contact Info) Description 10/26/2020 Procedure Pass [facility] [address] [place] [address] Social History Tobacco Use Types [...] Description 12/05/2024 Procedure Pass [facility] [address] [place] [address] 10/29/2025 8:30 AM EST Appointment Echo [facility] [address] [place] [address] Cindy Russell, MICHELLE [address] [place] [address] 11/01/2025 9:10 AM EST Office Visit [facility] [address] [place] [address] [place] [address] Alejo Elam DO [address] [place] [address] 11/16/2025 11:40 AM EST Office Visit [facility] [address] [place] [address] 3rd Floor, [address] [address] Win Zheng MD [address] [place] [address] documented as of this encounter Visit Diagnoses [...] documented as of this encounter Care Teams 2Nd Grade Teacher Relationship Specialty Start Date End Date Cornelia Membreno MD [address] [place] [address], [address] [place] [address] PCP - General 08/12/17 Bakari Henson MD [address] [place] [address] [email or web address] Historical LMR Provider 08/14/17 11/01/21 Art Ley MD [address] [place] [address] [email or web address] Historical LMR Provider 08/14/17 11/01/21 Akira Malik MD [address] [place] [address] [email or web address] Historical LMR Provider 08/14/17 11/01/21 Cronelia Membreno MD [address] [place] [address], [address] [place] [address] Insurance Assigned Provider 01/22/18 05/30/23 Cornelia Membreno MD [address] [place] [address], [address] [place] [address] Insurance Assigned Provider 01/28/25 Kaitlin Greene, OT [address] [place] [address] Transitions Record Press SupervisorPoultry Grader Therapy 04/23/2504/24/25 documented as of this encounter Additional Source Comments The information contained in this document represents components of the legal health record. It is not the complete legal health record.[facility]
--- OUTSIDE RECORDS SUMMARY | 2025-07-05 10:17 | XMS_ITS | Encounter Summary ---
Author Organization [facility] Address [address] [place] [address] Care Team Providers Care Pump And Still Operator Name Role Phone Ruth Matthews MD Primary Care Provider Encounter Details Date Type Department Care Team (Late st Contact Info) Description 02/16/[address] [facility] Lab [address] [facility] [place] [address] Ruth Matthews MD [address] [place] [address] Encounter for other general examination Social History [...] % LAB HEMETOLOGY METHOD 02/16/2025 11:23 AM [facility] Lymphocytes % 13.0 % LAB HEMETOLOGY METHOD 02/16/2025 11:23 AM [facility] Monocytes % 18.0 % LAB HEMETOLOGY METHOD 02/16/2025 11:23 AM [facility] Eosinophils % 4.0 % LAB HEMETOLOGY METHOD 02/16/2025 11:23 AM [facility] Basophils % 1.0 % LAB HEMETOLOGY METHOD 02/16/2025 11:23 AM [facility] Neutrophils Absolute Manual 5.04 1.50 - 7.00 K/mcL LAB HEMETOLOGY METHOD 02/16/2025 11:23 AM [facility] Lymphocytes Absolute 1.04 1.00 - 5.00 K/mcL LAB HEMETOLOGY METHOD 02/16/2025 11:23 AM [facility] Monocytes Absolute Manual 1.44(H) 0.20 - 1.00 K/mcL LAB HEMETOLOGY METHOD 02/16/2025 11:23 AM [facility] Eosinophils Absolute Manual 0.32 0.00 - 0.50 K/mcL LAB HEMETOLOGY METHOD 02/16/2025 11:23 AM [facility] Basophils Absolute Manual 0.08 0.00 - 0.20 K/mcL LAB HEMETOLOGY METHOD 02/16/2025 11:23 AM [facility] Rbc Morphology Present( A) Consistent with indices, Normal for LAB HEMETOLOGY METHOD 02/16/2025 11:23 AM [facility] Platelet Morphology - WAM See Note(A) Normal LAB HEMETOLOGY METHOD 02/16/2025 11:23 AM [facility] Comment:PLT: Normal Polychromasia Present Present( A) (none) LAB HEMETOLOGY METHOD 02/16/2025 11:23 AM T [facility] Blood Venous blood specimen / Unknown Venipuncture / Unknown 02/16/2025 6:58 AM EDT 02/16/2025 9:41 AM EDT us Ruth Matthews MD LAB BLOOD ORDERABLES Final Res ult [facility] [address] [place] [address], [place] [phone] * (ABNORMAL) CBC auto differential (02/16/2025 6:58 AM EDT) WBC 8.0 4.8 - 10.8 K/mcL LAB HEMETOLOGY METHOD 02/16/2025 11:23 AM [facility] RBC 2.80(L) 4.50 - 5.50 M/[facility] LAB HEMETOLOGY METHOD 02/16/2025 11:23 AM [facility] Hemoglobin 8.6(L) 13.5 - 17.5 g/dL LAB HEMETOLOGY METHOD 02/16/2025 11:23 AM [facility] Hematocrit 25.9(L) 42.0 - 54.0 % LAB HEMETOLOGY METHOD 02/16/2025 11:23 AM [facility] MCV 92.5 79.0 - 98.0 FL LAB HEMETOLOGY METHOD 02/16/2025 11:23 AM [facility] MCH 30.7 27.0 - 32.0 pcg LAB HEMETOLOGY METHOD 02/16/2025 11:23 AM [facility] MCHC 33.2 32.0 - 37.0 g/dL LAB HEMETOLOGY METHOD 02/16/2025 11:23 AM [facility] RDW 14.3 11.0 - 15.0 % LAB HEMETOLOGY METHOD 02/16/2025 11:23 AM EDT [facility] Platelets 570(H) 130 - 400 K/mcL LAB HEMETOLOGY METHOD 02/16/2025 11:23 AM EDT [facility] MPV 9.4 7.0 - 11.0 FL LAB HEMETOLOGY METHOD 02/16/2025 11:23 AM EDT [facility] NRBC 0.0 <1.0 % LAB HEMETOLOGY METHOD 02/16/2025 11:23 AM EDT [facility] NRBC Absolute 0.00 <0.10 K/mcL LAB HEMETOLOGY METHOD 02/16/2025 11:23 AM EDT [facility] Blood Venous blood specimen / Unknown Venipuncture / Unknown 02/16/2025 6:58 AM EDT 02/16/2025 9:41 AM EDT Ruth Matthews MD LAB BLOOD ORDERABLES Final Res ult [facility] [address] [place] [address], [place] [phone] * (ABNORMAL) Magnesium (02/16/2025 6:58 AM EDT) Magnesium 1.8(L) 1.9 - 2.6 mg/dL LAB CHEMISTRY METHOD 02/16/2025 11:08 AM EDT [facility] Blood Venous blood specimen / Unknown Venipuncture / Unknown 02/16/2025 6:58 AM EDT 02/16/2025 9:41 AM EDT Ruth Matthews MD LAB BLOOD ORDERABLES Final Res ult [facility] [address] [place] [address], [place] [phone] * (ABNORMAL) Comprehensive metabolic panel (02/16/2025 6:58 AM EDT) Sodium 126(L) 133 - 145 mmol/L LAB CHEMISTRY METHOD 02/16/2025 11:10 AM [facility] Potassium 4.7 3.5 - 5.5 mmol/L LAB CHEMISTRY METHOD 02/16/2025 11:10 AM [facility] Chloride 86(L) 96 - 110 mmol/L LAB CHEMISTRY METHOD 02/16/2025 11:10 AM [facility] CO2 30 21 - 32 mmol/L LAB CHEMISTRY METHOD 02/16/2025 11:10 AM [facility] Anion Gap 10 3 - 11 LAB CHEMISTRY METHOD 02/16/2025 11:10 AM [facility] Glucose 184(H) 70 - 100 mg/dL LAB CHEMISTRY METHOD 02/16/2025 11:10 AM [facility] BUN 17 5 - 25 mg/dL LAB CHEMISTRY METHOD 02/16/2025 11:10 AM [facility] Creatinine 0.94 0.70 - 1.30 mg/dL LAB CHEMISTRY METHOD 02/16/2025 11:10 AM [facility] eGFR 86 >=60 mL/min/1. 73m2 LAB CHEMISTRY METHOD 02/16/2025 11:10 AM [facility] Comment:Calculation based on the Chronic Kidney Disease Epidemiology Collaboration (CKD-EPI) equation refit without adjustment for race. BUN/Creatinine Ratio 18.1 LAB CHEMISTRY METHOD 02/16/2025 11:10 AM [facility] Calcium 9.2 8.5 - 10.5 mg/dL LAB CHEMISTRY METHOD 02/16/2025 11:10 AM [facility] AST (SGOT) 45(H) 10 - 42 unit/L LAB CHEMISTRY METHOD 02/16/2025 11:10 AM EDT [facility] ALT (SGPT) 76(H) 10 - 60 unit/L LAB CHEMISTRY METHOD 02/16/2025 11:10 AM EDT [facility] Alkaline Phosphatase 194(H) 42 - 121 unit/L LAB CHEMISTRY METHOD 02/16/2025 11:10 AM [facility] Total Protein 7.1 6.0 - 8.0 g/dL LAB CHEMISTRY METHOD 02/16/2025 11:10 AM [facility] Albumin 2.7(L) 3.2 - 5.0 g/dL LAB CHEMISTRY METHOD 02/16/2025 11:10 AM [facility] Total Bilirubin 1.0 0.0 - 1.4 mg/dL LAB CHEMISTRY METHOD 02/16/2025 11:10 AM [facility] Blood Venous blood specimen / Unknown Venipuncture / Unknown 02/16/2025 6:58 AM EDT 02/16/2025 9:41 AM EDT us Ruth Matthews MD LAB BLOOD ORDERABLES Final Res ult [facility] [address] [place] [address], [place] [phone] documented in this encounter Visit Diagnoses Diagnosis Encounter for other general examination documented in this encounter Care Teams Pump And Still Operator Relationship Specialty Start Date End Date Ruth Matthews MD [address] [place] [address] PCP - General Internal Medicine 02/16/25 documented as of this encounter
--- OUTSIDE RECORDS SUMMARY | 2025-07-05 10:17 | XMS_ITS | Encounter Summary ---
Author Organization [facility] Address [address] [place] [address] [place] [address] Phone Support Name Relationship Address Phone Amy Domínguezcecy Leblancangela Emergency Contact [address] [place] [address] Keysha Cox Emergency Contact [address] [place] [address] Care Team Providers Care Manager Of Corporate Name Role Phone Cornelia Membreno MD Primary Care Provider + [phone] Cornelia Membreno MD Unavailable [phone] Cornelia Membreno MD Unavailable [phone] Kaitlin Greene OT Unavailable [phone] Encounter Details Date Type Department Care Team (Late st Contact Info) Description 09/23/2022 Procedure Pass [address] [place] [address] Social History Tobacco Use Types Packs/Day Years [...] high school, GED, job training, learning the [place] language, technical skills, or developing parenting skills)? [...] Info) Description 12/05/2024 Procedure Pass [facility] [address] [place] [address] 10/29/2025 8:30 AM EST Appointment [facility] [address] [place] [address] Cindy Russell, MICHELLE [address] [facility], [address] [place] [address] 11/01/2025 9:10 AM EST Office Visit [facility] [address] [place] [address] [place] [address] Alejo Elam DO 22 [place] [address] 11/16/2025 11:40 AM EST Office Visit [facility] [address] [place] [address] 3rd Floor, [address] [place] [address] Win Zheng MD [address] [place] [address], [address] [address] [email or web address] documented as of this encounter Visit Diagnoses [...] documented as of this encounter Care Teams Manager Of Corporate Relationship Specialty Start Date End Date Cornelia Membreno MD [address] [place] [address], [address] [place] [address] PCP - General 08/12/17 Cornelia Membreno MD [address] [place] [address], [address] [place] [address] Insurance Assigned Provider 01/22/18 05/30/23 Cornelia Membreno MD [address] [place] [address], [address] [place] [address] Insurance Assigned Provider 01/28/25 Kaitlin Greene, OT [address] [place] [address] [email or web address] Transitions Repairer HelperCourt Administrator Therapy 04/23/2504/24/25 documented as of this encounter Additional Source Comments The information contained in this document represents components of the legal health record. It is not the complete legal health record.[facility]
--- OUTSIDE RECORDS SUMMARY | 2025-07-05 10:17 | XMS_ITS | Encounter Summary ---
Author Organization [facility] Address [address] [facility] [address] [place] [address] Phone Care Team Providers Care Optics Test Technician Name Role Phone Cornelia Membreno MD Primary Care Provider [phone] Cornelia Membreno MD Unavailable [phone] Reason for Visit * Reason Comments Medication Refill Encounter Details Date Type Department Care Team (Late st Contact Info) Description 05/26/2025 Refill [facility] [address] [facility] 3rd Floor, [address] [place] [address] Colton Craft DO [address] [facility] [address] [place] [address] [email or web address] Medication Refill Social History Tobacco Use Types [...] Info) Description 12/05/2024 Procedure Pass Echo Lab [address] [place] [address] 10/29/2025 8:30 AM EST Appointment [facility] [address] [place] [address] Cindy Russell, MICHELLE [address] [place] [address], [address] [address] 11/01/2025 9:10 AM EST Office Visit [facility] [address] [place] [address] [place] [address] Alejo Elam DO [address] [place] [address] 11/16/2025 11:40 AM EST Office Visit [facility] [address] [place] [address] 3rd Floor, [address] [address] Win Zheng MD [address] [place] [address] documented as of this encounter Visit Diagnoses Diagnosis Essential hypertension Unspecified essential hypertension documented in this encounter Additional Health Concerns Assessment Noted Time PHQ-2 Depression Total Score: 0 04/17/20 24 2:22 PM EDT documented as of this encounter Care Teams Optics Test Technician Relationship Specialty Start Date End Date Cornelia Membreno MD [address] [place] [address], [address] [place] [address] PCP - General 08/12/17 Cornelia Membreno MD [address] [place] [address], [address] [place] [address] (work) [email or web address] Insurance Assigned Provider 01/28/25 documented as of this encounter Additional Source Comments The information contained in this document represents components of the legal health record. It is not the complete legal health record.[facility]
--- OUTSIDE RECORDS SUMMARY | 2025-07-05 10:17 | XMS_ITS | Encounter Summary ---
Author Organization [facility] Address [address] [place] [address] Care Team Providers Care New Accounts Clerk Name Role Phone Ruth Matthews MD Primary Care Provider [phone] Encounter Details Date Type Department Care Team (Late st Contact Info) Description 02/23/2025 Lab Requisition [facility] - Main Lab [address] [facility] [place] [address] Ruth Matthews MD [address] [place] [address] Encounter for other general examination Social History [...] for add-ons. 02/23/2025 10:[address] [facility] Comment:Auto resulted. Blood Venous blood specimen / Unknown Venipuncture / Unknown 02/23/2025 5:18 AM EDT 02/23/2025 8:48 AM EDT Ruth Matthews MD LAB BLOOD ORDERABLES Final Res ult [facility] [address] [place] [address], * (ABNORMAL) Basic metabolic panel (02/23/2025 5:18 AM EDT) Sodium 129(L) 133 - 145 mmol/L LAB CHEMISTRY METHOD 02/23/2025 10:29 AM [facility] Potassium 4.7 3.5 - 5.5 mmol/L LAB CHEMISTRY METHOD 02/23/2025 10:29 AM [facility] Chloride 94(L) 96 - 110 mmol/L LAB CHEMISTRY METHOD 02/23/2025 10:29 AM [facility] CO2 26 21 - 32 mmol/L LAB CHEMISTRY METHOD 02/23/2025 10:29 AM [facility] Anion Gap 9 3 - 11 LAB CHEMISTRY METHOD 02/23/2025 10:29 AM [facility] Glucose 107(H) 70 - 100 mg/dL LAB CHEMISTRY METHOD 02/23/2025 10:29 AM [facility] BUN 26(H) 5 - 25 mg/dL LAB CHEMISTRY METHOD 02/23/2025 10:29 AM [facility] Creatinine 0.80 0.70 - 1.30 mg/dL LAB CHEMISTRY METHOD 02/23/2025 10:29 AM [facility] eGFR 93 >=60 mL/min/1. 73m2 LAB CHEMISTRY METHOD 02/23/2025 10:29 AM [facility] Comment:Calculation based on the Chronic Kidney Disease Epidemiology Collaboration (CKD-EPI) equation refit without adjustment for race. BUN/Creatinine Ratio 32.5 LAB CHEMISTRY METHOD 02/23/2025 10:29 AM [facility] Calcium 9.4 8.5 - 10.5 mg/dL LAB CHEMISTRY METHOD 02/23/2025 10:29 AM EDT [facility] Blood Venous blood specimen / Unknown Venipuncture / Unknown 02/23/2025 5:18 AM EDT 02/23/2025 8:48 AM EDT us Ruth Matthews MD LAB BLOOD ORDERABLES Final Res ult [facility] [address] [place] [address], documented in this encounter Visit Diagnoses Diagnosis Encounter for other general examination documented in this encounter Care Teams New Accounts Clerk Relationship Specialty Start Date End Date uRth Matthesw MD [address] [place] [address] PCP - General Internal Medicine 02/16/25 documented as of this encounter
--- OUTSIDE RECORDS SUMMARY | 2025-07-05 10:17 | XMS_ITS | Clinical Summary ---
Author Organization [address] [facility] Address [address] [place] [address] Phone Care Team Providers Care Crib Pad Maker Name Role Phone Ruth Matthews MD Primary Care Provider [phone] Social History Tobacco Use Types Packs/Day Years [...] of 3 - Risk 3-dose series) 2011 Depression Screening 10/25/2024 Cholesterol Screening (Lipid Panel) 02/16/2025 Diabetes: Blood Sugar Control Test (HGBA1C) 02/16/2025 Falls Risk Assessment 02/16/2025 Hepatitis C Screening 02/16/2025 Social Influencers of Health Screening 02/16/2025 COVID-19 Vaccine ( season) 2025 12/15/2021, 01/30/2021, 01/09/2021 Influenza Vaccine (#1) 2025 , 11/10/2023, 06/22/2021, Additional history exists Diabetes: Annual Urine Albumin-Creatinine Ratio (uACR) 10/27/2025 [...] 10/27/2012 RSV Immunization Adult Patients Completed 11/25/2023 HIB Vaccines Aged Out No longer eligi [...] Procedure Name Priority Date/Time Associated Diagnosis Comments BASIC METABOLIC PANEL Routine 02/23/2025 5:18 AM EDT Encounter for other general examination from Last 3 Months or Most Recently Relevant to Health Maintenance Results * (ABNORMAL) Basic metabolic panel (02/23/2025 5:18 AM EDT) Sodium 129(L) 133 - 145 mmol/L LAB CHEMISTRY METHOD 02/23/2025 10:29 AM [facility] Potassium 4.7 3.5 - 5.5 mmol/L LAB CHEMISTRY METHOD 02/23/2025 10:29 AM [facility] Chloride 94(L) 96 - 110 mmol/L LAB CHEMISTRY METHOD 02/23/2025 10:29 AM [facility] CO2 26 21 - 32 mmol/L LAB CHEMISTRY METHOD 02/23/2025 10:29 AM [facility] Anion Gap 9 3 - 11 LAB CHEMISTRY METHOD 02/23/2025 10:29 AM [facility] Glucose 107(H) 70 - 100 mg/dL LAB CHEMISTRY METHOD 02/23/2025 10:29 AM [facility] BUN 26(H) 5 - 25 mg/dL LAB CHEMISTRY METHOD 02/23/2025 10:29 AM [facility] Creatinine 0.80 0.70 - 1.30 mg/dL LAB CHEMISTRY METHOD 02/23/2025 10:29 AM [facility] eGFR 93 >=60 mL/min/1. 73m2 LAB CHEMISTRY METHOD 02/23/2025 10:29 AM [facility] Comment:Calculation based on the Chronic Kidney Disease Epidemiology Collaboration (CKD-EPI) equation refit without adjustment for race. BUN/Creatinine Ratio 32.5 LAB CHEMISTRY METHOD 02/23/2025 10:29 AM [facility] Calcium 9.4 8.5 - 10.5 mg/dL LAB CHEMISTRY METHOD 02/23/2025 10:29 AM [facility] Blood Venous blood specimen / Unknown Venipuncture / Unknown 02/23/2025 5:18 AM EDT 02/23/2025 8:48 AM EDT us Ruth Matthews MD LAB BLOOD ORDERABLES Final Res ult [facility] [address] [place] [address], from Last 3 Months or Most Recently Relevant to Health Maintenance Insurance [facility] Care Teams Crib Pad Maker Relationship Specialty Start Date End Date Ruth Matthews MD [address] [place] [address] PCP - General Internal Medicine 02/16/25
--- OUTSIDE RECORDS SUMMARY | 2025-07-05 10:17 | XMS_ITS | Encounter Summary ---
Author Organization [facility] Address [address] [facility] [address] [place] [address] Phone Care Team Providers Care Quality Assurance Supervisor Final Name Role Phone Cornelia Membreno MD Primary Care Provider [phone] Cornelia Membreno MD Unavailable [phone] Reason for Visit * Reason Onset Date Comments Medication Refill 07/03/2025 Encounter Details Date Type Department Care Team (Late st Contact Info) Description 07/03/2025 Refill [facility] [address] [address] Clarissa Wick MA [address] [place] [address] [email or web address] Medication Refill Social History Tobacco Use Types [...] 04/22/2025 Are you denied basic needs [facility] as food, clothing, or medical care? No [...] as of this encounter Progress Notes * Clarissa Wick MA - 07/03/2025 2:49 PM EDT Images from the original note were not included. Jackelyn Phipps CNP P [facility] Rx Patient has #6 Tramadol left. Please cue Rx to PCP, check PULP GRINDER. Rx Care Gap Status - Instructions for Clinical Staff (prescriber discretion applies): > Mismatch review guide > Check PDMP for all controlled medication requests. Visit Info Last visit: 05/17/2025 Cornelia Mem[place]o [place] [facility] [place] Requested f/u: Return for with [facility] in 2 weeks to review pain management plan.. Upcoming visit: 07/03/2025 Jackelyn Phipps CNP - [facility] [place] ACTIONS TAKEN BY Clarissa Wick MA - Criteria met. Opioid Rx Protocol - tramadol HCl Controlled substance renewals are at prescriber discretion. Pain mgmt profile/toxicology (urine/saliva) may be considered annually or more frequently if indicated. In-person visit in past 2 years: Yes (Last in-person visit: 07/03/2025 (Jackelyn Phipps CNP - [facility])) Visit in past 4 months: Yes No benzodiazepine on medication list Opioid agreement on file: No Pain management profile/toxicology in past 12 months: No documented in this encounter Plan of Treatment Upcoming Encounters Date Type Department Care Team (Late st Contact Info) Description 12/05/2024 Procedure Pass [facility] [address] [place] [address] 10/29/2025 8:30 AM EST Appointment [facility] [address] [place] [address] Cindy Russell, [facility] [address] [facility], [address] [place] [address] 11/01/2025 9:10 AM EST Office Visit [facility] [address] [place] [address] Alejo Elam DO 22 [place] [address] 11/16/2025 11:40 AM EST Office Visit [facility] [address] Floor, [address] [place] [address] Win Zheng MD [address] [place] [address] documented as of this encounter Visit Diagnoses Diagnosis Pain Generalized pain documented in this encounter Additional Health Concerns Assessment Noted Time PHQ-2 Depression Total Score: 0 04/17/20 24 2:22 PM EDT documented as of this encounter Care Teams Quality Assurance Supervisor Final Relationship Specialty Start Date End Date Cornelia Membreno MD [address] [place] [address], [address] [place] [address] PCP - General 08/12/17 Cornelia Membreno MD [address] [place] [address], [address] [place] [address] Insurance Assigned Provider 01/28/25 documented as of this encounter Additional Source Comments The information contained in this document represents components of the legal health record. It is not the complete legal health record.[facility]
--- OUTSIDE RECORDS SUMMARY | 2025-07-05 10:17 | XMS_ITS | Encounter Summary ---
Author Organization [facility] Address [address] [place] [address] Phone Care Team Providers Care Sorter Packer Name Role Phone Cornelia Membreno MD Primary Care Provider + [phone] Bakari Henson MD Unavailable [phone] Art Ley MD Unavailable Akira Malik MD Unavailable [phone] Cornelia Membreno MD Unavailable [phone] Cornelia Membreno MD Unavailable [phone] Kaitlin Greene OT Unavailable [phone] Encounter Details Date Type Department Care Team (Late st Contact Info) Description 10/30/2020 Ancillary Orders [facility],Outside Imaging [address] [place] [address] System, Provider Not In, [facility] [address] [address] Social History Tobacco Use Types Packs/Day Years [...] Info) Description 12/05/2024 Procedure Pass [facility] [address] [place] [address] 10/29/2025 8:30 AM EST Appointment [facility] [address] [place] [address] Cindy Russell, MICHELLE [address] [place] [address] 11/01/2025 9:10 AM EST Office Visit [facility] [address] [place] [address] Alejo Elam DO [address] [place] [address] 11/16/2025 11:40 AM EST Office Visit [facility] [address] [place] [address] 3rd Floor, [address] [address] Win Zheng MD [address] [place] [address] documented as of this encounter Results * CT Chest Outside (No Interpretation) (10/03/2020 12:00 AM EST) Narrative SYSTEMGENERATED, DOCUMENTATION - 10/30/2020 2:02 PM EST This study is for PACS [...] documented as of this encounter Care Teams Sorter Packer Relationship Specialty Start Date End Date Cornelia Membreno MD [address] [place] [address], [address] [address] PCP - General 08/12/17 Bakari Henson MD [address] [place] [address] [email or web address] Historical LMR Provider 08/14/17 11/01/21 Art Ley MD [address] [place] [address] [email or web address] Historical LMR Provider 08/14/17 11/01/21 Akira Malik MD [address] [place] [address] Historical LMR Provider 08/14/17 11/01/21 Cornelia Membreno MD [address] [place] [address], [address] [address] Insurance Assigned Provider 01/22/18 05/30/23 Cornelia Membreno MD [address] [place] [address], [address] [place] [address] [email or web address] Insurance Assigned Provider 01/28/25 Kaitlin Greene, OT [address] [place] [address] [email or web address] Transitions Rehabilitation Therapy TechnicianBridge Inspector Therapy 04/23/2504/24/25 documented as of this encounter Additional Source Comments The information contained in this document represents components of the legal health record. It is not the complete legal health record.[facility]
--- OUTSIDE RECORDS SUMMARY | 2025-07-05 10:17 | XMS_ITS | Encounter Summary ---
Author Organization [facility] Address [address] [place] [address] Care Team Providers Care Mobile Application Architect Name Role Phone Ruth Matthews MD Primary Care Provider [phone] Encounter Details Date Type Department Care Team (Late st Contact Info) Description 02/20/2025 Lab Requisition [facility] - Main Lab [address] [place] [address] Ruth Matthews MD [address] [place] [address] Encounter for other general examination Social History [...] LAB CHEMISTRY METHOD 02/20/2025 1:42 PM EDT [facility] Urine Urine specimen obtained by clean catch procedure / Unknown Non-blood Collection / Unknown 02/20/2025 5:04 AM EDT 02/20/2025 10:11 AM EDT us Ruth Matthews MD LAB URINE ORDERABLES Final Res ult [facility] HOSPITAL LAB [address] [place] [address], documented in this encounter Visit Diagnoses Diagnosis Encounter for other general examination documented in this encounter Care Teams Mobile Application Architect Relationship Specialty Start Date End Date Ruth Matthews MD [address] [place] [address] PCP - General Internal Medicine 02/16/25 documented as of this encounter
--- OUTSIDE RECORDS SUMMARY | 2025-07-05 10:18 | XMS_ITS | Encounter Summary ---
Author Organization [facility] Address [address] [place] [address] [place] [address] Phone Care Team Providers Care Barrel Drum Cutter Name Role Phone Cornelia Membreno MD Primary Care Provider + [phone] Cornelia Membreno MD Unavailable [phone] Cornelia Membreno MD Unavailable [phone] Kaitlin Greene OT Unavailable [phone] Encounter Details Date Type Department Care Team (Late st Contact Info) Description 04/15/2022 Procedure Pass OR Admitting Dept - [facility] Department [address] [place] [address] Social History Tobacco Use Types Packs/Day Years [...] high school, GED, job training, learning the [place] language, technical skills, or developing parenting skills)? [...] Info) Description 12/05/2024 Procedure Pass [facility] [address] [place] [address] 10/29/2025 8:30 AM EST Appointment [facility] [address] [place] [address] Cindy Russell, MICHELLE [address] [facility], [address] [place] [address] 11/01/2025 9:10 AM EST Office Visit [facility] [address] [place] [address] [place] [address] Alejo Elam DO [address] [place] [address] 11/16/2025 11:40 AM EST Office Visit [facility] [address] [place] [address] 3rd Floor, [address] [place] [address] Win Zheng MD [address] [place] [address], [address] [address] [email or web address] documented as of this encounter Visit Diagnoses [...] documented as of this encounter Care Teams Barrel Drum Cutter Relationship Specialty Start Date End Date Cornelia Membreno MD [address] [place] [address], [address] [place] [address] PCP - General 08/12/17 Cornelia Membreno MD [address] [place] [address], [address] [place] [address] Insurance Assigned Provider 01/22/18 05/30/23 Cornelia Membreno MD [address] [place] [address], [address] [place] [address] Insurance Assigned Provider 01/28/25 Kaitlin Greene, OT [address] [place] [address] [email or web address] Transitions Rv Body MechanicBuilding Supplies Salesperson Retail Therapy 04/23/2504/24/25 documented as of this encounter Additional Source Comments The information contained in this document represents components of the legal health record. It is not the complete legal health record.[facility]
--- OUTSIDE RECORDS SUMMARY | 2025-07-05 10:18 | XMS_ITS | Encounter Summary ---
Author Organization [facility] Address [address] [place] [address] [place] [address] Phone Care Team Providers Care Retail Merchandiser Technician Name Role Phone Cornelia Membreno MD Primary Care Provider [phone] Cornelia Membreno MD Unavailable [phone] Kaitlin Greene OT Unavailable [phone] Encounter Details Date Type Department Care Team (Late st Contact Info) Description 11/29/2024 Procedure Pass [facility] Admitting Dept Virtual Department [address] [place] [address] Social History Tobacco Use Types Packs/Day Years [...] as food, clothing, or medical care? No 11/29/2024 In the past 12 months have y ou been in a relationship with a person who hurts, threatens, or tries to control you? No 11/29/2024 Are you denied basic needs s uch as food, clothing, or medical care? No 11/29/2024 In the past 12 months have y ou been in a relationship with a person who hurts, threatens, or tries to control you? No 11/29/2024 Sex and Gender Information Value Date Recorded [...] Info) Description 12/05/2024 Procedure Pass [facility] [address] [address] 10/29/2025 8:30 AM EST Appointment [facility] [address] [address] Cindy Russell, MICHELLE [address] [place] [address], [address] [address] 11/01/2025 9:10 AM EST Office Visit [facility] [address] [place] [address] Alejo Elam DO [address] [place] [address] 11/16/2025 11:40 AM EST Office Visit [facility] [address] [place] [address] 3rd Floor, [address] [address] Win Zheng MD [address] [place] [address] documented as of this encounter Visit Diagnoses Not on filedocumented in this encounter Additional Health Concerns Assessment Noted Time PHQ-2 Depression Total Score: 0 04/17/20 24 2:22 PM EDT documented as of this encounter Care Teams Retail Merchandiser Technician Relationship Specialty Start Date End Date Cornelia Membreno MD [address] [place] [address], [address] [place] [address] PCP - General 08/12/17 Cornelia Membreno MD [address] [place] [address], [address] [place] [address] Insurance Assigned Provider 01/28/25 Kaitlin Greene, OT [address] [place] [address] [email or web address] Transitions Director CheckPouncer Machine Therapy 04/23/2504/24/25 documented as of this encounter Additional Source Comments The information contained in this document represents components of the legal health record. It is not the complete legal health record.[facility]
--- OUTSIDE RECORDS SUMMARY | 2025-07-05 10:18 | XMS_ITS | Encounter Summary ---
Author Organization [facility] Address [address] [facility] [address] [place] [address] Phone Care Team Providers Care Transit Mechanic Name Role Phone Cornelia Membreno MD Primary Care Provider + [phone] Cornelia Membreno MD Unavailable [phone] Kaitlin Greene OT Unavailable [phone] Encounter Details Date Type Department Care Team (Late st Contact Info) Description 02/22/2025 Telephone [facility] [address] [place] [address] Cornelia Membreno MD [address] [facility], [address] [place], [place] [id number] [email or web address] Social History Tobacco Use Types Packs/Day Years [...] Info) Description 12/05/2024 Procedure Pass [facility] [address] [address] 10/29/2025 8:30 AM EST Appointment [facility] [address] [address] Cindy Russell, MICHELLE [address] [place] [address] 11/01/2025 9:10 AM EST Office Visit [facility] [address] [place] [address] Alejo Elam DO [address] [place] [address] 11/16/2025 11:40 AM EST Office Visit [facility] [address] [place] [address] [address]rd Floor, [address] [address] Win Zheng MD [address] [place] [address] documented as of this encounter Visit Diagnoses Not on filedocumented in this encounter Additional Health Concerns Assessment Noted Time PHQ-2 Depression Total Score: 0 04/17/20 24 2:22 PM EDT documented as of this encounter Care Teams Transit Mechanic Relationship Specialty Start Date End Date Cornelia Membreno MD [address] [place] [address], [address] [place] [address] PCP - General 08/12/17 Cornelia Membreno MD [address] [place] [address], [address] [place] [address] [email or web address] Insurance Assigned Provider 01/28/25 Kaitlin Greene, OT [address] [place] [address] [email or web address] Transitions Medical Director/Head Team PhysicianSupplier Quality Specialist Therapy 04/23/2504/24/25 documented as of this encounter Additional Source Comments The information contained in this document represents components of the legal health record. It is not the complete legal health record.[facility]
--- OUTSIDE RECORDS SUMMARY | 2025-07-05 10:18 | XMS_ITS | Encounter Summary ---
Author Organization [facility] Address [address] [place] [address] [place] [address] Phone Care Team Providers Care Support Specialist Name Role Phone Cornelia Membreno MD Primary Care Provider [phone] Cornelia Membreno MD Unavailable [phone] Kaitlin Greene OT Unavailable [phone] Encounter Details Date Type Department Care Team (Late st Contact Info) Description 09/11/2024 Procedure Pass [facility] Admitting Dept Virtual Department [address] [place] [address] Social History Tobacco Use Types Packs/Day Years [...] 07/26/2024 Are you denied basic needs s uch [...] Info) Description 12/05/2024 Procedure Pass [facility] [address] [address] 10/29/2025 8:30 AM EST Appointment [facility] [address] [address] Cindy Russell, MICHELLE [address] [place] [address], [address] [address] 11/01/2025 9:10 AM EST Office Visit [facility] [address] [place] [address] Alejo Elam DO [address] [place] [address] 11/16/2025 11:40 AM EST Office Visit [facility] [address] [place] [address] 3rd Floor, [address] [address] Win Zheng MD [address] [place] [address] documented as of this encounter Visit Diagnoses Not on filedocumented in this encounter Additional Health Concerns Assessment Noted Time PHQ-2 Depression Total Score: 0 04/17/20 24 2:22 PM EDT documented as of this encounter Care Teams Support Specialist Relationship Specialty Start Date End Date Cornelia Membreno MD [address] [place] [address], [address] [place] [address] PCP - General 08/12/17 Cornelia Membreno MD [address] [place] [address], [address] [place] [address] Insurance Assigned Provider 01/28/25 Kaitlin Greene, OT [address] [place] [address] [email or web address] Transitions Instructor Correspondence SchoolProof Press Operator Therapy 04/23/2504/24/25 documented as of this encounter Additional Source Comments The information contained in this document represents components of the legal health record. It is not the complete legal health record.[facility]
--- OUTSIDE RECORDS SUMMARY | 2025-07-05 10:18 | XMS_ITS | Encounter Summary ---
Author Organization [facility] Address [address] [place] [address] [place] [address] Phone Support Name Relationship Address Phone Amy Campbell [facility] [address] [place] [address] Keysha Cox Emergency Contact [address] [place] [address] Care Team Providers Care Supervisor Name Role Phone Cornelia Membreno MD Primary Care Provider [phone] Cornelia Membreno MD Unavailable [phone] Kaitlin Greene OT Unavailable Encounter Details Date Type Department Care Team (Late st Contact Info) Description 07/14/2024 Procedure Pass [facility] [place] [place] [address] Social History Tobacco Use Types Packs/Day Years [...] with a working camera? Not on file Sex and Gender Information Value Date Recorded [...] Description 12/05/2024 Procedure Pass [facility] [address] [place] [address] 10/29/2025 8:30 AM EST Appointment Echo Lab [address] [place] [address] Cindy Russell, [place] [address] [facility], [address] [place] [address] [email or web address] 11/01/2025 9:10 AM EST Office Visit [facility] [address] [place] [address] Alejo Elam DO 22 [place] [address] 11/16/2025 11:40 AM EST Office Visit [facility] [address] Floor, [address] [place] [address] Win Zheng MD [address] [place] [address] documented as of this encounter Visit Diagnoses Not on filedocumented in this encounter Additional Health Concerns Infection Onset Date Last Indicated Resolved Time CDiff-Risk 07/17/2024 07/17/2024 07/17/2024 8:54 PM EDT CDiff-Risk 07/27/2024 07/27/2024 07/27/2024 8:21 PM EDT Assessment Noted Time PHQ-2 Depression Total Score: 0 04/17/20 24 2:22 PM EDT documented as of this encounter Care Teams Supervisor Relationship Specialty Start Date End Date Cornelia Membreno MD [address] [place] [address], [address] [place] [address] PCP - General 08/12/17 Cornelia Membreno MD [address] [place] [address], [address] [place] [address] Insurance Assigned Provider 01/28/25 Kaitlin Greene, OT [address] [place] [address] Transitions Event PromoterHouse Wirer Therapy 6/30/25 7/ 1/25 documented as of this encounter Additional Source Comments The information contained in this document represents components of the legal health record. It is not the complete legal health record.[facility]
--- OUTSIDE RECORDS SUMMARY | 2025-07-05 10:18 | XMS_ITS | Clinical Summary ---
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 bradycardia - LV is normal in size with normal systolic function - EF is estimated at 65% - Normal RV systolic function - Left atrium is moderately dilated - Aortic valve-bioprosthetic aortic valve, maximum gradient of 45 mmHg mean gradient of 24 mmHg - Mild to moderate mitral valve stenosis-maximum gradient of 25 mmHg mean gradient of 6 mmHg - Trace mitral valve regurgitation - Trace tricuspid valve regurgitation There is no pericardial effusion present - IVC is normal Left Ventricle The left ventricle is normal in size. There is borderline concentric hypertrophy. The LV ejection fraction is 65%. There are no wall motion abnormalities. LV diastolic function was not assessed. Right Ventricle The right ventricle is normal in size. There is normal right ventricular systolic function. TAPSE is 22 mm. RV S' wave is 13.3 cm/s. Left Atrium The left atrium is moderately dilated. The left atrial volume index by BSA is 41 mL/m2. Right Atrium The right atrium is normal in size. The IVC is normal in size with normal inspiratory collapse. Mitral Valve There is anterior and posterior mitral annular calcification. There is mild to moderate calcific mitral stenosis. There is trace mitral regurgitation. Tricuspid Valve The tricuspid valve appears normal. There is no tricuspid stenosis. There is trace tricuspid regurgitation. The RV systolic pressure was calculated at 41 mmHg (using TR peak velocity of 3.1 m/s and assuming an RA pressure of 3 mmHg). Aortic Valve There is a 21mmmm Johnson [id number] bioprosthetic aortic valve, which is well- seated. Leaflets appear thickened. There is moderate aortic stenosis. There is no aortic regurgitation. The visualized portions of the thoracic aorta appear normal in size. Pulmonic Valve The pulmonic valve is suboptimally visualized. There is no pulmonic stenosis. There is no pulmonic regurgitation. Pericardium There is no pericardial effusion. General Findings The study was technically difficult (4). Study quality explanation: body habitus. Technique(s) used in the evaluation: Color flow Doppler and Spectral Doppler. An ultrasound enhancing agent was administered IV, per ASE guidelines. The predominant rhythm during the study was sinus bradycardia. Comparison Findings Compared to prior TTE on 10/27/2024, No significant changes compared to echo from October, IAS/IVS The interatrial septum appears normal. us Ronal Black MD CV ECHO ORDERABLES Final Result * ECG 12-LEAD (04/23/2025 8:40 AM EDT) Only the most recent of4 resultswithin the time period is included. Ventricular Rate EKG/MIN 47 BPM [facility] Atrial Rate 94 BPM [facility] UT Interval 166 ms [facility] QRS Duration 128 ms [facility] QT Interval 524 ms [facility] QTC Interval 463 ms [facility] P Moro 85 degrees [facility] R Wave Moro 269 degrees [facility] T Wave Moro 41 degrees [facility] 04/23/2025 8:40 AM EDT 04/24/2025 8:38 AM EDT Narrative [facility] - 04/24/2025 8:38 AM EDT Sinus rhythm with 2nd degree A-V block with 2:1 A-V conduction Right bundle branch block Abnormal ECG When compared with ECG of 22-Apr-2025 05:01, Sinus rhythm is now with 2nd degree A-V block Confirmed by Ceasar DEVRIES ([id number]) on 04/24/2025 8:38:11 AM us To Daily DO, MPH ECG ORDERABLES Final Resu lt [facility]I_[facility] * (ABNORMAL) Comprehensive metabolic panel (04/22/2025 6:16 AM EDT) SODIUM 134 133 - 146 mmol/L [facility] POTASSIUM 4.7 3.3 - 5.1 mmol/L [facility] CHLORIDE 101 96 - 108 mmol/L [facility] CO2 24 21 - 35 mmol/L [facility] BUN 27(H) 6 - 19 mg/dL [facility] CREATININE 1.20 0.5 - 1.5 mg/dL [facility] GLUCOSE 80 70 - 99 mg/dL [facility] ALBUMIN 3.9 3.9 - 4.8 g/dL [facility] TOTAL PROTEIN 6.4(L) 6.5 - 8.0 g/dL [facility] CALCIUM 9.0 8.4 - 10.3 mg/dL [facility] ALKALINE PHOSPHATASE 91 39 - 117 U/L [facility] TOTAL BILIRUBIN 1.0 0.0 - 1.2 mg/dL [facility] AST 26 0 - 37 U/L [facility] ALT 19 0 - 40 U/L [facility] GLOBULIN 2.5 1 - 4.8 g/dL [facility] EGFR 63 >59 mL/min/1.7 3m2 [facility] Comment:Estimated glomerular filtration rate calculated using the CKD-EPI refit equation. ANION GAP 14 10 - 20 mmol/L [facility] Blood 04/22/2025 6:16 AM EDT 04/22/2025 6:53 AM EDT us Ronal Black MD LAB BLOOD ORDERABLES Final Resu lt Performing Organization Address City/[facility]/ZIP Co de Phone Number [address] [address] * (ABNORMAL) Troponin (04/22/2025 2:08 AM EDT) Only the most recent of2 resultswithin the time period is included. Troponin-T, HS Gen5 69(H) 0 - 14 ng/L [facility] Blood 04/22/2025 2:08 AM EDT 04/22/2025 2:26 AM EDT us Marcos Andrade DO LAB BLOOD ORDERABLES Final Re sult Performing Organization Address [facility]/ZIP Co de Phone Number [address] [address] * XR Chest Portable (04/22/2025 1:51 AM EDT) Anatomical Region Laterality Modality Chest Computed Radiogr aphy 04/22/2025 1:59 AM EDT Impressions 04/22/2025 2:01 AM EDT Mild interstitial pulmonary edema. Narrative 04/22/2025 2:01 AM EDT XR CHEST PORTABLE Referring clinician's provided indication for this examination in [facility]: Dyspnea (Shortness of Breath) COMPARISON: XR CHEST PA AND LATERAL 2 VIEWS FINDINGS: Devices/Tubes/Lines: None. Lungs: Mild interstitial prominence. No focal consolidation. Pleura: No pleural effusion or pneumothorax. Heart/Mediastinum: Unchanged in appearance. Aortic valve replacement. Bones/Soft Tissues: Median sternotomy with similar multiple fractured wires. Procedure Note Nini Lyon MD - 04/22/2025 XR CHEST PORTABLE Referring clinician's provided indication for this examination in [facility]:Dyspnea (Shortness of Breath) COMPARISON: XR CHEST PA AND LATERAL 2 VIEWS FINDINGS: Devices/Tubes/Lines: None. Lungs: Mild interstitial prominence. No focal consolidation. Pleura: No pleural effusion or pneumothorax. Heart/Mediastinum: Unchanged in appearance. Aortic valve replacement. Bones/Soft Tissues: Median sternotomy with similar multiple fracturedwires. IMPRESSION: Mild interstitial pulmonary edema. Marcos Andrade DO IMG XR CHEST Final Result * (ABNORMAL) NT-proBNP (04/22/2025 1:10 AM EDT) NT-PROBNP 5,457(H) 0 - 450 pg/mL [facility] Blood 04/22/2025 1:10 AM EDT 04/22/2025 1:14 AM EDT us Marcos Andrade DO LAB BLOOD ORDERABLES Final Re sult Performing Organization Address City/[facility]/ZIP Co de Phone Number [address] [address] * (ABNORMAL) Hemoglobin A1c (04/11/2025 9:06 AM EDT) HEMOGLOBIN A1C 6.2(H) 4.3 - 5.8 % [facility] Blood 04/11/2025 9:06 AM EDT 04/11/2025 9:20 AM EDT Alejo Elam DO LAB BLOOD ORDERABLES Final Resul t Performing Organization Address [facility]/ZIP Co de Phone Number [address] [address] * ENDOSCOPY, COLON (11/29/2024 8:44 AM EST) Narrative Transcriptions Jake Catherine MD - 11/29/2024 8:44 AM EST [facility] Patient Name: Jt Casarez Attending MD:: JAKE CATHERINE MD, Procedure Date: 11/29/2024 8:44 AM Date of : 1950 Age: 74 Admit Type: Outpatient Gender: Male Room: [facility] 05 Referring MD: AKASH DOSS MD Exam Type: Colonoscopy Indications: High risk colon cancer surveillance: Personalhistory of colonic polyps, Last colonoscopy: August2021 Medications: Monitored Anesthesia Care Procedure: Informed consent was obtained from the patientafter discussion of the indications, limitations, alternatives, benefits, and risks of the procedure. Risks specifically discussed include but are not limited to medication reactions, missed lesions, bleeding, perforation, or the need for emergent surgery. Throughout the procedure, the patient's blood pressure, pulse, end-tidal CO2, and oxygensaturations were monitored continuously. The Olympus adult variable colonoscope [id number] #5 was introduced through the anus and advanced to the terminal ileum, with identification of theappendiceal orifice and IC valve. The colonoscopy was performed without difficulty. The patient tolerated the procedure well. The quality of the bowelpreparation was good. The terminal ileum, ileocecal valve, appendiceal orifice, and rectum werephotographed. Complications: No immediate complications. Estimated blood loss:None. Findings: The terminal ileum appeared normal. Examination of the right colon was repeated in retroflexion and again in NBI. Retroflexion wasalso performed in the rectum. A 4 mm polyp was found in the cecum. The polyp was flat. The polyp was removed with a cold snare. Resection and retrieval were complete. Internal hemorrhoids were found duringretroflexion. The hemorrhoids were moderate. The exam was otherwise without abnormality. Impression: - The examined portion of the ileum was normal. - One 4 mm polyp in the cecum, removed with a cold snare. Resected and retrieved. - Internal hemorrhoids. - The examination was otherwise normal. Recommendation: - Patient has a contact number available for emergencies. The signs and symptoms of potential delayed complications were discussed with thepatient. Return to normal activities tomorrow. Written discharge instructions were provided to thepatient. - Await pathology results. - Repeat colonoscopy in 5 years for surveillance. Jake Catherine JAKE CATHERINE MD 11/29/2024 9:20:05 AM This report has been signed electronically. Number of Addenda: 0 Note Initiated On: 11/29/2024 8:44 AM Procedure Code(s): --- Professional --- 98953, Colonoscopy, flexible; with removal of tumor(s), polyp(s), or other lesion(s) by snare technique --- Technical --- 49185, Colonoscopy, flexible; with removal of tumor(s), polyp(s), or other lesion(s) by snare technique CPT copyright 2021 [employer]. All rights reserved. The codes documented in this report are preliminary and upon research environmental engineer reviewmay be revised to meet current compliance requirements. Procedure Date: 11/29/2024 8:44:[address] [place] [address] us Akash Membreno MD GI PROCEDURE ORDERABLES Fi nal Result * DIABETES EYE EXAM FOR RESULT ENTRY ONLY (09/01/2024 11:43 AM EST) us Unknown Unknown HEALTH MAINTENANCE Edited Res ult - Final from Last 3 Months or Most Recently Relevant to Health Maintenance Insurance [employer] MEDEX SUPPLEMENT MEDICARE PART A & B [employer] MEDEX SUPPLEMENT MEDICARE PART A & B [employer] MEDEX SUPPLEMENT MEDICARE PART A & B [employer] MEDEX SUPPLEMENT MEDICARE PART A & B [employer] MEDEX SUPPLEMENT MEDICARE PART A & B [employer] MEDEX SUPPLEMENT MEDICARE PART A & B MEDEX SUPPLEMENT MEDICARE PART A & B [employer] MEDEX SUPPLEMENT MEDICARE PART A & B [employer] MEDEX SUPPLEMENT MEDICARE PART A & B Member Subscriber Plan / Payer (Ef fective 2016-Present) Name:Alf Casarezlenard Marley Member ID:[id number] Relation to Subscriber:Self Name:LeidaJt Subscriber ID:[id number] Payer ID:[id number] Group ID:Not on file Type:Medicare Address: [facility] [employer] [facility] [facility] [address] [place] [address] Advance Directives For more information, please contact: [phone] (9AM - 5PM She/[facility], Wednesday-Wednesday) Documents on File Type Date Recorded Patient Shutdown Coordinator Expl anation Healthcare Proxy 04/16/2022 * Full Code (Latest Code Status on File) Date Activated Date Inactivated Comments 04/22/2025 4:14 AM Question Answer Comments Code Status Confirmed With: Patient Code Status Communicated To: Inpatient Attending * Full Code (Confirmed) Date Activated Date Inactivated Comments 07/12/2019 9:17 PM 07/13/2019 6:45 PM Question Answer Comments Code Status Confirmed With: Patient Care Teams Combat Information Center Officer Relationship Specialty Start Date End Date Akash Membreno MD [address] [place] [address], [address] [place] [address] PCP - General 08/12/17 Akash Membreno MD [address] [place] [address], [address] [place] [address] Insurance Assigned Provider 01/28/25 Additional Source Comments The information contained in this document represents components of the legal health record. It is not the complete legal health record.[facility]
== END 2025-07-05 09:01 | disposition home or self-care (01) ==
LOC: HO.MRI 09:00
PROVIDERS: PCP Family Medicine; Visit Provider Physician Assistant
DX: M00.9 Pyogenic arthritis, unspecified (principal)
CPT/HCPCS: 72158; A9585

== ENCOUNTER 2025-07-13 13:28 | Outpatient (AMB) | payer MEDICARE, SELFPAY ==
--- OUTSIDE RECORDS SUMMARY | 2025-07-13 13:35 | XMS_ITS | Encounter Summary ---
Author Organization [facility] Address [address] [place] [address] [place] [address] Phone Care Team Providers Care Tree Climber Name Role Phone Cornelia Membreno MD Primary Care Provider [phone] Cornelia Membreno MD Unavailable [phone] Kaitlin Greene OT Unavailable [phone] Encounter Details Date Type Department Care Team (Late st Contact Info) Description 07/26/2024 Procedure Pass [facility], Ct Scan - [address] [address] Social History Tobacco Use Types Packs/Day Years [...] 07/26/2024 Are you denied basic needs s [facility] as food, clothing, or medical care? [...] 8:09 PM EDT Danna Boykin RN * [place] Suicide Severity Rating Scale (Screener/Recent Self-Report) Question [...] Info) Description 12/05/2024 Procedure Pass [facility] [address] [address] 10/29/2025 8:30 AM EST Appointment Echo Lab [address] [address] Cindy Russell DNP [address] [place] [address] 11/01/2025 9:10 AM EST Office Visit [facility] [address] [place] [address] Alejo Elam DO [address] [place] [address] 11/16/2025 11:40 AM EST Office Visit [facility] [address] [place] [address] [address]rd Floor, [address] [address] Win Zheng MD [address] [place] [address] documented as of this encounter Visit Diagnoses Not on filedocumented in this encounter Additional Health Concerns Infection Onset Date Last Indicated Resolved Time CDiff-Risk 07/27/2024 07/27/2024 07/27/2024 8:21 PM EDT Assessment Noted Time PHQ-2 Depression Total Score: 0 04/17/20 24 2:22 PM EDT documented as of this encounter Care Teams Tree Climber Relationship Specialty Start Date End Date Cornelia Membreno MD [address] [facility], [address] [place] [address] [email or web address] PCP - General 08/12/17 Cornelia Membreno MD [address] [place] [address], [address] [place] [address] Insurance Assigned Provider 01/28/25 Kaitlin Greene, OT [address] [place] [address] [email or web address] Transitions Field Account DirectorPhp Consultant Therapy 04/23/2504/24/25 documented as of this encounter Additional Source Comments The information contained in this document represents components of the legal health record. It is not the complete legal health record.[facility]
--- OUTSIDE RECORDS SUMMARY | 2025-07-13 13:35 | XMS_ITS | Encounter Summary ---
Author Organization [facility] Address [address] [place] [address] [place] [address] Phone Care Team Providers Care Tree Shear Operator Name Role Phone Cornelia Membreno MD Primary Care Provider + [phone] Bakari Henson MD Unavailable [phone] Art Ley MD Unavailable Akira Malik MD Unavailable [phone] Cornelia Membreno MD Unavailable [phone] Cornelia Membreno MD Unavailable [phone] Kaitlin Greene OT Unavailable [phone] Encounter Details Date Type Department Care Team (Late st Contact Info) Description 09/10/2021 Procedure Pass [facility] Admitting Dept Virtual Department [address] [place] [address] Social History Tobacco Use Types Packs/Day Years [...] high school, GED, job training, learning the Dutch language, technical skills, or developing parenting skills)? [...] Description 12/05/2024 Procedure Pass [facility] [address] [place] [address] 10/29/2025 8:30 AM EST Appointment [facility] [address] [place] [address] Cindy Russell, [facility] [address] [facility], [address] [place] [address] 11/01/2025 9:10 AM EST Office Visit [facility] [address] [place] [address] Alejo Elam DO [address] [place] [address] 11/16/2025 11:40 AM EST Office Visit [facility] [address] [facility] 3rd Floor, [address] [place] [address] Win Zheng MD [address] [place] [address], [address] [address] documented as of this encounter Visit Diagnoses [...] as of this encounter Care Teams Tree Shear Operator Relationship Specialty Start Date End Date Cornelia Membreno MD [address] [place] [address], [address] [place] [address] PCP - General 08/12/17 Bakari Henson MD [address] [place] [address] [address] [place] [address] Historical LMR Provider 08/14/17 11/01/21 Art Ley MD [address] [place] [address] [email or web address] Historical LMR Provider 08/14/17 11/01/21 Akira Malik MD [address] [place] [address], [address] [place] [address] Historical LMR Provider 08/14/17 11/01/21 Cornelia Membreno MD [address] [place] [address], [address] [place] [address] [email or web address] Insurance Assigned Provider 01/22/18 05/30/23 Cornelia Membreno MD [address] [place] [address], [address] [place] [address] Insurance Assigned Provider 01/28/25 Kaitlin Greene, OT [address] [place] [address] Transitions Lead Vulcanizing OperatorDiesel Locomotive Firer/Fireman Therapy 04/23/2504/24/25 documented as of this encounter Additional Source Comments The information contained in this document represents components of the legal health record. It is not the complete legal health record.[facility]
--- OUTSIDE RECORDS SUMMARY | 2025-07-13 13:36 | XMS_ITS | Encounter Summary ---
Author Organization [facility] Address [address] [place] [address] [place] [address] Phone Support Name Relationship Address Phone Amy Domínguezcecy Leblancangela Emergency Contact [address] [place] [address] Keysha Cox Emergency Contact [address] [place] [address] Care Team Providers Care Nursing Informatics Clinical Analyst Name Role Phone Cornelia Membreno MD Primary Care Provider + [phone] Cornelia Membreno MD Unavailable [phone] Cornelia Membreno MD Unavailable [phone] Kaitlin Greene OT Unavailable [phone] Encounter Details Date Type Department Care Team (Late st Contact Info) Description 07/17/2022 Procedure Pass Echo Lab [address] [place], [place] [id number] Social History Tobacco Use Types Packs/Day Years [...] high school, GED, job training, learning the Nigerien language, technical skills, or developing parenting skills)? [...] Info) Description 12/05/2024 Procedure Pass Echo Lab [address] [place] [address] 10/29/2025 8:30 AM EST Appointment Echo Lab [address] [place] [address] Cindy Russell, MICHELLE [address] [facility], [address] [place] [address] 11/01/2025 9:10 AM EST Office Visit [facility] [address] [place] [address] [place] [address] Alejo Elam DO 22 [place] [address] 11/16/2025 11:40 AM EST Office Visit [facility] [address] [place] [address] 3rd Floor, [address] [place] [address] Win Zheng MD [address] [place] [address], [address] [address] [email or web address] documented as of this [...] documented as of this encounter Care Teams Nursing Informatics Clinical Analyst Relationship Specialty Start Date End Date Cornelia Membreno MD [address] [place] [address], [address] [address] PCP - General 08/12/17 Cornelia Membreno MD [address] [place] [address], [address] [place] [address] Insurance Assigned Provider 01/22/18 05/30/23 Cornelia Membreno MD [address] [place] [address], [address] [place] [address] Insurance Assigned Provider 01/28/25 Kaitlin Greene, OT [address] [place] [address] [email or web address] Transitions Remote Computer Terminal OperatorDiploma Maker Therapy 04/23/2504/24/25 documented as of this encounter Additional Source Comments The information contained in this document represents components of the legal health record. It is not the complete legal health record.[facility]
--- OUTSIDE RECORDS SUMMARY | 2025-07-13 13:36 | XMS_ITS | Encounter Summary ---
Author Organization [facility] Address [address] [place] [address] [place] [address] Phone Care Team Providers Care Milling Machine Set Up Operator Name Role Phone Cornelia Membreno MD Primary Care Provider [phone] Cornelia Membreno MD Unavailable [phone] Kaitlin Greene OT Unavailable [phone] Reason for Visit * Reason Onset Date Comments Medication Refill 04/20/2025 Encounter Details Date Type Department Care Team (Late st Contact Info) Description 04/20/2025 Refill [facility] [address] [place] [address] [email or web address] Medication Refill Social History Tobacco Use Types [...] 1:05 AM DYLANT Ezequiel Ramos RN * [place] Suicide Severity Rating Scale (Screener/Recent Self-Report) Question [...] Last visit: 04/16/2025 Gia Byrd CNP - [facility] > Requested f/u: Return in about 1 month (around 05/16/2025), or if symptoms worsen or fail to improve. Upcoming visit: 05/17/2025 Cornelia Membreno MD - Family [facility] ACTIONS TAKEN BY Steff Iyer CMA - Checked PDMP/MassPAT Opioid Rx Protocol - tramadol HCl Controlled substance renewals are at prescriber discretion. Pain management profile/toxicology testing (urine/saliva) may be considered annually or more frequently if clinically indicated. In-person visit in the past 2 years: Yes (Last in-person visit: 04/16/2025 ([facility] Visit in the past 4 months: Yes No benzodiazepine on medication list Opioid agreement on file: No Pain management profile/toxicology testing in past 12 months: No * BrittneyKacie lundy - 04/20/2025 10:55 AM EDT Patient called in requesting a refill on the medication tramadol. Please contact and advise. Central Support Stockbroking Dealer (Please do not reply to this user; this inbox is not monitored.) Thank you. documented in this encounter Plan of Treatment Upcoming Encounters Date Type Department Care Team (Late st Contact Info) Description 12/05/2024 Procedure Pass Echo Lab [address] [place] [address] 10/29/2025 8:30 AM EST Appointment Echo Lab [address] [place] [address] Cindy Russell DNP [address] [place] [address] 11/01/2025 9:10 AM EST Office Visit [facility] [address] [place] [address] [place] [address] Alejo Elam DO [address] [place] [address] 11/16/2025 11:40 AM EST Office Visit [facility] [address] [place] [address] 3rd Floor, [address] [address] Win Zheng MD [address] [place] [address] documented as of this encounter Visit Diagnoses Diagnosis Pain Generalized pain documented in this encounter Additional Health Concerns Assessment Noted Time PHQ-2 Depression Total Score: 0 04/17/20 24 2:22 PM EDT documented as of this encounter Care Teams Milling Machine Set Up Operator Relationship Specialty Start Date End Date Cornelia Membreno MD [address] [place] [address], [address] [place] [address] [email or web address] PCP - General 08/12/17 Cornelia Membreno MD 22 [facility], [address] [place] [address] Insurance Assigned Provider 01/28/25 Kaitlin Greene, OT [address] [place] [address] [email or web address] Transitions Induction Coordination EngineerVegetable Handler Therapy 04/23/2504/24/25 documented as of this encounter Additional Source Comments The information contained in this document represents components of the legal health record. It is not the complete legal health record.[facility]
--- OUTSIDE RECORDS SUMMARY | 2025-07-13 13:36 | XMS_ITS | Encounter Summary ---
Author Organization [facility] Address [address] [place] [address] [place] [address] Phone Support Name Relationship Address Phone Amy Varela Emergency Contact [address] [place] [address] Keysha Cox Emergency Contact [address] [place] [address] Care Team Providers Care Chief Of Party Name Role Phone Cornelia Membreno MD Primary Care Provider + [phone] Bakari Henson MD Unavailable [phone] Art Ley MD Unavailable [phone] Akira Malik MD Unavailable [phone] Cornelia Membreno MD Unavailable [phone] Cornelia Membreno MD Unavailable [phone] Kaitlin Greene OT Unavailable [phone] Encounter Details Date Type Department Care Team (Late st Contact Info) Description 09/29/2021 Procedure Pass Echo Lab [address] [place] [address] Social History Tobacco Use Types Packs/Day Years [...] high school, GED, job training, learning the Ugand[place] language, technical skills, or developing parenting skills)? [...] Info) Description 12/05/2024 Procedure Pass Echo Lab [address] [place] [address] 10/29/2025 8:30 AM EST Appointment Echo Lab [address] [place] [address] Cindy Russell, [facility] [address] [facility], [address] [place] [address] 11/01/2025 9:10 AM EST Office Visit [facility] [address] [place] [address] Alejo Elam DO 22 [place] [address] 11/16/2025 11:40 AM EST Office Visit [facility] [address] [facility] 3rd Floor, [address] [place] [address] Win Zheng MD [address] [facility], [address] [address] documented as of this encounter Visit Diagnoses [...] documented as of this encounter Care Teams Chief Of Party Relationship Specialty Start Date End Date Cornelia Membreno MD [address] [place] [address], [address] [place] [address] PCP - General 08/12/17 Bakari Henson MD [address] [place] [address] 2nd [place] [address] Historical LMR Provider 08/14/17 11/01/21 Art Ley MD [address] [place] [address] [email or web address] Historical LMR Provider 08/14/17 11/01/21 Akira Malik MD [address] [place] [address], 2nd [place] [address] Historical LMR Provider 08/14/17 11/01/21 Cornelia Membreno MD [address] [place] [address], [address] [place] [address] Insurance Assigned Provider 01/22/18 05/30/23 Cornelia Membreno MD [address] [place] [address], [address] [place] [address] Insurance Assigned Provider 01/28/25 Kaitlin Greene, OT [address] [place] [address] Transitions Plant PackerFinancial Associate Therapy 04/23/2504/24/25 documented as of this encounter Additional Source Comments The information contained in this document represents components of the legal health record. It is not the complete legal health record.[facility]
--- OUTSIDE RECORDS SUMMARY | 2025-07-13 13:36 | XMS_ITS | Encounter Summary ---
Author Organization [facility] Address [address] [place] [address] [place] [address] Phone Care Team Providers Care Gmat Instructor Name Role Phone Cornelia Membreno MD Primary Care Provider [phone] Cornelia Membreno MD Unavailable [phone] Kaitlin Greene OT Unavailable [phone] Encounter Details Date Type Department Care Team (Late st Contact Info) Description 04/22/2025 Procedure Pass [facility] Lab [address] [place] [address] Social History Tobacco Use Types Packs/Day Years [...] 1:05 AM EDT Ezequiel Ramos RN * [place] Suicide Severity Rating Scale (Screener/Recent Self-Report) Question [...] Description 12/05/2024 Procedure Pass Echo Lab [address] [place] [address] 10/29/2025 8:30 AM EST Appointment Echo Lab [address] [place] [address] Cindy Russell DNP [address] [place] [address] 11/01/2025 9:10 AM EST Office Visit [facility] [address] [place] [address] [place] [address] Alejo Elam DO [address] [place] [address] 11/16/2025 11:40 AM EST Office Visit [facility] [address] [place] [address] 3rd Floor, [address] [address] Win Zheng MD [address] [place] [address] documented as of this encounter Visit Diagnoses Not on filedocumented in this encounter Additional Health Concerns Assessment Noted Time PHQ-2 Depression Total Score: 0 04/17/20 24 2:22 PM EDT documented as of this encounter Care Teams Gmat Instructor Relationship Specialty Start Date End Date Cornelia Membreno MD 22 [facility], [address] [place] [address] [email or web address] PCP - General 08/12/17 Cornelia Membreno MD 22 [facility], [address] [place] [address] [email or web address] Insurance Assigned Provider 01/28/25 Kaitlin Greene, OT [address] [place] [address] [email or web address] Transitions Lightning Protection InstallerBilingual Recruiter Therapy 04/23/2504/24/25 documented as of this encounter Additional Source Comments The information contained in this document represents components of the legal health record. It is not the complete legal health record.[facility]
--- OUTSIDE RECORDS SUMMARY | 2025-07-13 13:37 | XMS_ITS | Encounter Summary ---
Author Organization [facility] Address [address] [place] [address] Care Team Providers Care Health Specialist Name Role Phone Ruth Matthews MD Primary Care Provider [phone] Encounter Details Date Type Department Care Team (Late st Contact Info) Description 02/26/2025 Lab Requisition [facility] - Main Lab [address] [place] [address] Ruth Matthews MD [address] [place] [address] Encounter for other general examination Social History [...] LAB CHEMISTRY METHOD 02/26/2025 12:59 PM EDT [facility] Blood Venous blood specimen / Unknown Venipuncture / Unknown 02/26/2025 5:59 AM EDT 02/26/2025 10:55 AM EDT us Ruth Matthews MD LAB BLOOD ORDERABLES Final Res ult [facility] [address] [place] [address], documented in this encounter Visit Diagnoses Diagnosis Encounter for other general examination documented in this encounter Care Teams Health Specialist Relationship Specialty Start Date End Date Ruth Matthews MD [address] [place] [address] PCP - General Internal Medicine 02/16/25 documented as of this encounter
--- OUTSIDE RECORDS SUMMARY | 2025-07-13 13:37 | XMS_ITS | Encounter Summary ---
Author Organization [facility] Address [address] [place] [address] [place] [address] Phone Care Team Providers Care Manager Oncology Name Role Phone Cornelia Membreno MD Primary Care Provider + [phone] Bakari Henson MD Unavailable [phone] Art Ley MD Unavailable [phone] Akira Malik MD Unavailable [phone] Cornelia Membreno MD Unavailable [phone] Cornelia Membreno MD Unavailable [phone] Kaitlin Greene OT Unavailable [phone] Encounter Details Date Type Department Care Team (Late st Contact Info) Description 11/22/2020 Procedure Pass [facility], Ct Scan - [address] [address] Social History Tobacco Use Types Packs/Day Years [...] Info) Description 12/05/2024 Procedure Pass Echo Lab [address] [place] [address] 10/29/2025 8:30 AM EST Appointment Echo Lab [address] [place] [address] Cindy Russell, MICHELLE [address] [place] [address] 11/01/2025 9:10 AM EST Office Visit [facility] [address] [place] [address] [place] [address] Alejo Elam DO [address] [place] [address] 11/16/2025 11:40 AM EST Office Visit [facility] [address] [place] [address] 3rd Floor, [address] [address] Win Zheng MD [address] [place] [address] documented as of this encounter Visit Diagnoses [...] as of this encounter Care Teams Manager Oncology Relationship Specialty Start Date End Date Cornelia Membreno MD [address] [place] [address], [address] [place] [address] PCP - General 08/12/17 Bakari Henson MD [address] [place] [address] [email or web address] Historical LMR Provider 08/14/17 11/01/21 Art Ley MD [address] [place] [address] [email or web address] Historical LMR Provider 08/14/17 11/01/21 Akira Malik MD [address] [place] [address] Historical LMR Provider 08/14/17 11/01/21 Cornelia Membreno MD [address] [place] [address], [address] [place] [address] Insurance Assigned Provider 01/22/18 05/30/23 Cornelia Membreno MD [address] [place] [address], [address] [place] [address] Insurance Assigned Provider 01/28/25 Kaitlin Greene, OT [address] [place] [address] Transitions Vinyl InstallerLicensed Sales Assistant Therapy 04/23/2504/24/25 documented as of this encounter Additional Source Comments The information contained in this document represents components of the legal health record. It is not the complete legal health record.[facility]
--- OUTSIDE RECORDS SUMMARY | 2025-07-13 13:37 | XMS_ITS | Encounter Summary ---
Author Organization [facility] Address [address] [facility] [address] [place] [address] Phone Care Team Providers Care Correctional Medicine Physician Name Role Phone Cornelia Membreno MD Primary Care Provider [phone] Cornelia Membreno MD Unavailable [phone] Encounter Details Date Type Department Care Team (Late st Contact Info) Description 05/01/2025 Procedure Pass Non-Invasive Cardiology [address] [place] [address] Social History Tobacco Use Types [...] Info) Description 12/05/2024 Procedure Pass Echo Lab [address] [place] [address] 10/29/2025 8:30 AM EST Appointment Echo Lab [address] [address] Cindy Russell DNP [address] [place] [address] 11/01/2025 9:10 AM EST Office Visit [facility] [address] [place] [address] Alejo Elam DO 22 [place] [address] 11/16/2025 11:40 AM EST Office Visit [facility] [address] [place] [address] 3rd Floor, [address] [address] Win Zheng MD [address] [place] [address] documented as of this encounter Visit Diagnoses Not on filedocumented in this encounter Additional Health Concerns Assessment Noted Time PHQ-2 Depression Total Score: 0 04/17/20 24 2:22 PM EDT documented as of this encounter Care Teams Correctional Medicine Physician Relationship Specialty Start Date End Date Cornelia Membreno MD [address] [place] [address], [address] [place] [address] PCP - General 08/12/17 Cornelia Membreno MD [address] [place] [address], [address] [place] [address] Insurance Assigned Provider 01/28/25 documented as of this encounter Additional Source Comments The information contained in this document represents components of the legal health record. It is not the complete legal health record.[facility]
--- OUTSIDE RECORDS SUMMARY | 2025-07-13 13:37 | XMS_ITS | Encounter Summary ---
Author Organization [facility] Address [address] [place] [address] Care Team Providers Care Rn Clinical Quality Name Role Phone Ruth Matthews MD Primary Care Provider [phone] Encounter Details Date Type Department Care Team (Late st Contact Info) Description 02/24/2025 Lab Requisition [facility] - Main Lab [address] [facility] [place] [address] Ruth Matthews MD [address] [place] [address] Encounter for other general examination Social History [...] ORD ERABLES Final Result [facility] LAB [address] [place] [address], documented in this encounter Visit Diagnoses Diagnosis Encounter for other general examination documented in this encounter Care Teams Rn Clinical Quality Relationship Specialty Start Date End Date Ruth Matthews MD [address] [place] [address] PCP - General Internal Medicine 02/16/25 documented as of this encounter
--- OUTSIDE RECORDS SUMMARY | 2025-07-13 13:37 | XMS_ITS | Encounter Summary ---
Author Organization [facility] Address [address] [place] [address] [address] [place] [address] Phone Support Name Relationship Address Phone Amy Varela Emergency Contact [address] [place] [address] Keysha Cox Emergency Contact [address] [place] [address] Care Team Providers Care Head Of Mathematics Name Role Phone Cornelia Membreno MD Primary Care Provider [phone] Bakari Henson MD Unavailable [phone] Art Ley MD Unavailable Akira Malik MD Unavailable Cornelia Membreno MD Unavailable [phone] Cornelia Membreno MD Unavailable [phone] Kaitlin Greene OT Unavailable [phone] Encounter Details Date Type Department Care Team (Late st Contact Info) Description 08/07/2021 Transcribe Orders [facility] Specimen Processing [address] [place] [address] Cornelia Membreno MD 22 [facility], [address] [place], [place] [id number] Social History Tobacco Use Types Packs/Day Years [...] high school, GED, job training, learning the Grenadian language, technical skills, or developing parenting skills)? [...] Info) Description 12/05/2024 Procedure Pass Echo Lab [address] [place] [address] 10/29/2025 8:30 AM EST Appointment Echo Lab [address] [place] [address] Cindy Russell, MICHELLE [address] [place] [address], [address] [place] [address] 11/01/2025 9:10 AM EST Office Visit [facility] [address] [place] [address] Alejo Elam, [address] [place] [address] 11/16/2025 11:40 AM EST Office Visit [facility] [address] [place] [address] 3rd Floor, [address] [place] [address] Win Zheng MD [address] [place] [address], [address] [address] documented as of this encounter Visit Diagnoses [...] documented as of this encounter Care Teams Head Of Mathematics Relationship Specialty Start Date End Date Cornelia Membreno MD [address] [place] [address], [address] [place] [address] PCP - General 08/12/17 Bakari Henson MD [address] [place] [address] [email or web address] Historical LMR Provider 08/14/17 11/01/21 Art Ley MD [address] [place] [address] [email or web address] Historical LMR Provider 08/14/17 11/01/21 Akira Malik MD [address] [place] [address] [email or web address] Historical LMR Provider 08/14/17 11/01/21 Cornelia Membreno MD [address] [place] [address] [address] [place] [address] [email or web address] Insurance Assigned Provider 01/22/18 05/30/23 Cornelia Membreno MD [address] [place] [address], [address] [place] [address] Insurance Assigned Provider 01/28/25 Kaitlin Greene, OT [address] [place] [address] Transitions AnaesthesiologistMail Examiner Therapy 04/23/2504/24/25 documented as of this encounter Additional Source Comments The information contained in this document represents components of the legal health record. It is not the complete legal health record.[facility]
--- OUTSIDE RECORDS SUMMARY | 2025-07-13 13:37 | XMS_ITS | Encounter Summary ---
Author Organization [facility] Address [address] [facility] [address] [place] [address] Phone Care Team Providers Care Coding Validator Name Role Phone Cornelia Membreno MD Primary Care Provider [phone] Cornelia Membreno MD Unavailable [phone] Reason for Visit * Reason Comments Medication Refill Encounter Details Date Type Department Care Team (Late st Contact Info) Description 05/06/2025 Refill [facility] [address] [place] [address] [place], [place] [id number] Cornelia Membreno MD [address] [facility], [address] [place], [place] [id number] [email or web address] Medication Refill Social History Tobacco Use Types [...] Description 12/05/2024 Procedure Pass [facility] [address] [address] 10/29/2025 8:30 AM EST Appointment Echo Lab [address] [place] [address] Cindy Russell, MICHELLE [address] [place] [address] 11/01/2025 9:10 AM EST Office Visit [facility] [address] [place] [address] Alejo Elam DO [address] [place] [address] 11/16/2025 11:40 AM EST Office Visit [facility] [address] [place] [address] 3rd Floor, [address] [address] Win Zheng MD [address] [place] [address] documented as of this encounter Visit Diagnoses Diagnosis Pain Generalized pain documented in this encounter Additional Health Concerns Assessment Noted Time PHQ-2 Depression Total Score: 0 04/17/20 24 2:22 PM EDT documented as of this encounter Care Teams Coding Validator Relationship Specialty Start Date End Date Cornelia Membreno MD [address] [place] [address], [address] [address] PCP - General 08/12/17 Cornelia Membreno MD [address] [place] [address], [address] [address] [email or web address] Insurance Assigned Provider 01/28/25 documented as of this encounter Additional Source Comments The information contained in this document represents components of the legal health record. It is not the complete legal health record.[facility]
--- OUTSIDE RECORDS SUMMARY | 2025-07-13 13:38 | XMS_ITS | Encounter Summary ---
Author Organization [facility] Address [address] [place] [address] [place] [address] Phone Support Name Relationship Address Phone Amy Domínguezcecy Leblancangela Emergency Contact [address] [place] [address] Keysha Cox Emergency Contact [address] [place] [address] Care Team Providers Care Exterior Interior Specialist Name Role Phone Cornelia Membreno MD Primary Care Provider + [phone] Cornelia Membreno MD Unavailable [phone] Cornelia Membreno MD Unavailable [phone] Kaitlin Greene OT Unavailable [phone] Encounter Details Date Type Department Care Team (Late st Contact Info) Description 09/23/2022 Procedure Pass [address] [place] [address] Social History Tobacco Use Types Packs/Day Years [...] high school, GED, job training, learning the Indian language, technical skills, or developing parenting skills)? [...] Info) Description 12/05/2024 Procedure Pass Echo [facility] [place] [address] [place] [address] 10/29/2025 8:30 AM EST Appointment Echo [facility] [place] [address] [place] [address] Cindy Russell, MICHELLE [address] [facility], [address] [place] [address] 11/01/2025 9:10 AM EST Office Visit [facility] [address] [place] [address] [place] [address] Alejo Elam DO [address] [place] [address] 11/16/2025 11:40 AM EST Office Visit [facility] [address] [place] [address] Dr 3rd Floor, [address] [address] Win Zheng MD [address] [place] [address] documented as of this encounter Visit Diagnoses Not on filedocumented in this encounter Additional Health Concerns Infection Onset Date Last Indicated Resolved Time CoV-Risk Comment:Per Ambulatory Triage Form 10/06/2022 10/06/202210/17 1:24 AM EST CDiff-Risk 07/17/2024 07/17/2024 07/17/2024 8:5 4 PM EDT CDiff-Risk 07/27/2024 07/27/2024 07/27/2024 8:21 PM EDT Assessment Noted Time PHQ-2 Depression Total Score: 1 08/29/20 19 12:06 PM EST documented as of this encounter Care Teams Exterior Interior Specialist Relationship Specialty Start Date End Date Cornelia Membreno MD [address] [place] [address], [address] [place] [address] PCP - General 08/12/17 Cornelia Membreno MD [address] [place] [address], [address] [place] [address] [email or web address] Insurance Assigned Provider 01/22/18 05/30/23 Cornelia Membreno MD [address] [place] [address], [address] [place] [address] [email or web address] Insurance Assigned Provider 01/28/25 Kaitlin Greene, OT [address] [place] [address] [email or web address] Transitions Contact Center AgentHospital Admissions Clerk Therapy 04/23/2504/24/25 documented as of this encounter Additional Source Comments The information contained in this document represents components of the legal health record. It is not the complete legal health record.[facility]
--- OUTSIDE RECORDS SUMMARY | 2025-07-13 13:39 | XMS_ITS | Encounter Summary ---
Author Organization [facility] Address [address] [place] [address] [place] [address] Phone Support Name Relationship Address Phone Amy Domínguezcecy Leblancangela Emergency Contact [address] [place] [address] Keysha Cox Emergency Contact [address] [place] [address] Care Team Providers Care Rifle Case Repairer Name Role Phone Cornelia Membreno MD Primary Care Provider + [phone] Cornelia Membreno MD Unavailable [phone] Cornelia Membreno MD Unavailable [phone] Kaitlin Greene OT Unavailable [phone] Encounter Details Date Type Department Care Team (Late st Contact Info) Description 09/23/2022 Procedure Pass [address] [place] [address] Social History Tobacco Use Types Packs/Day Years [...] high school, GED, job training, learning the Malian language, technical skills, or developing parenting skills)? [...] Description 12/05/2024 Procedure Pass Echo Lab [address] [place] [address] 10/29/2025 8:30 AM EST Appointment [facility] [address] [place] [address] Cindy Russell, MICHELLE [address] [facility], [address] [place] [address] 11/01/2025 9:10 AM EST Office Visit [facility] [address] [place] [address] [place] [address] Alejo Elam DO 22 [place] [address] 11/16/2025 11:40 AM EST Office Visit [facility] [address] [place] [address] 3rd Floor, [address] [place] [address] Win Zheng MD [address] [place] [address], [address] [address] [email or web address] documented as of this [...] documented as of this encounter Care Teams Rifle Case Repairer Relationship Specialty Start Date End Date Cornelia Membreno MD [address] [place] [address], [address] [place] [address] PCP - General 08/12/17 Cornelia Membreno MD [address] [place] [address], [address] [place] [address] Insurance Assigned Provider 01/22/18 05/30/23 Cornelia Membreno MD [address] [place] [address], [address] [place] [address] Insurance Assigned Provider 01/28/25 Kaitlin Greene, OT [address] [place] [address] [email or web address] Transitions [email or web address] Tank CrewmanCreeler Therapy 04/23/2504/24/25 documented as of this encounter Additional Source Comments The information contained in this document represents components of the legal health record. It is not the complete legal health record.[facility]
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
--- OUTSIDE RECORDS SUMMARY | 2025-07-13 13:41 | XMS_ITS | Encounter Summary ---
Author Organization [facility] Address [address] [place] [address] Care Team Providers Care Messenger Office Name Role Phone Ruth Matthews MD Primary Care Provider [phone] Encounter Details Date Type Department Care Team (Late st Contact Info) Description 02/16/2025 Lab Requisition [facility] Main Lab [address] [facility] [place] [address] Ruth Matthews MD [address] [place] [address] Encounter for other general examination Social History [...] % LAB HEMETOLOGY METHOD 02/16/2025 11:23 AM [facility] Lymphocytes % 13.0 % LAB HEMETOLOGY METHOD 02/16/2025 11:23 AM [facility] Monocytes % 18.0 % LAB HEMETOLOGY METHOD 02/16/2025 11:23 AM [facility] Eosinophils % 4.0 % LAB HEMETOLOGY METHOD 02/16/2025 11:23 AM [facility] Basophils % 1.0 % LAB HEMETOLOGY METHOD 02/16/2025 11:23 AM [facility] Neutrophils Absolute Manual 5.04 1.50 - 7.00 K/mcL LAB HEMETOLOGY METHOD 02/16/2025 11:23 AM [facility] Lymphocytes Absolute 1.04 1.00 - 5.00 K/mcL LAB HEMETOLOGY METHOD 02/16/2025 11:23 AM [facility] Monocytes Absolute Manual 1.44(H) 0.20 - 1.00 K/mcL LAB HEMETOLOGY METHOD 02/16/2025 11:23 AM [facility] Eosinophils Absolute Manual 0.32 0.00 - 0.50 K/mcL LAB HEMETOLOGY METHOD 02/16/2025 11:23 AM [facility] Basophils Absolute Manual 0.08 0.00 - 0.20 K/mcL LAB HEMETOLOGY METHOD 02/16/2025 11:23 AM [facility] Rbc Morphology Present( A) Consistent with indices, Normal for LAB HEMETOLOGY METHOD 02/16/2025 11:23 AM [facility] Platelet Morphology - WAM See Note(A) Normal LAB HEMETOLOGY METHOD 02/16/2025 11:23 AM [facility] Comment:PLT: Normal Polychromasia Present Present( A) (none) LAB HEMETOLOGY METHOD 02/16/2025 11:23 AM T [facility] Blood Venous blood specimen / Unknown Venipuncture / Unknown 02/16/2025 6:58 AM EDT 02/16/2025 9:41 AM EDT us Ruth Matthews MD LAB BLOOD ORDERABLES Final Res ult [facility] [address] [place] [address], [place] [phone] * (ABNORMAL) CBC auto differential (02/16/2025 6:58 AM EDT) WBC 8.0 4.8 - 10.8 K/mcL LAB HEMETOLOGY METHOD 02/16/2025 11:23 AM [facility] RBC 2.80(L) 4.50 - 5.50 M/[facility] LAB HEMETOLOGY METHOD 02/16/2025 11:23 AM [facility] Hemoglobin 8.6(L) 13.5 - 17.5 g/dL LAB HEMETOLOGY METHOD 02/16/2025 11:23 AM [facility] Hematocrit 25.9(L) 42.0 - 54.0 % LAB HEMETOLOGY METHOD 02/16/2025 11:23 AM [facility] MCV 92.5 79.0 - 98.0 FL LAB HEMETOLOGY METHOD 02/16/2025 11:23 AM [facility] MCH 30.7 27.0 - 32.0 pcg LAB HEMETOLOGY METHOD 02/16/2025 11:23 AM [facility] MCHC 33.2 32.0 - 37.0 g/dL LAB HEMETOLOGY METHOD 02/16/2025 11:23 AM [facility] RDW 14.3 11.0 - 15.0 % LAB HEMETOLOGY METHOD 02/16/2025 11:23 AM EDT [facility] Platelets 570(H) 130 - 400 K/mcL LAB HEMETOLOGY METHOD 02/16/2025 11:23 AM EDT [facility] MPV 9.4 7.0 - 11.0 FL LAB HEMETOLOGY METHOD 02/16/2025 11:23 AM EDT [facility] NRBC 0.0 <1.0 % LAB HEMETOLOGY METHOD 02/16/2025 11:23 AM EDT [facility] NRBC Absolute 0.00 <0.10 K/mcL LAB HEMETOLOGY METHOD 02/16/2025 11:23 AM EDT [facility] Blood Venous blood specimen / Unknown Venipuncture / Unknown 02/16/2025 6:58 AM EDT 02/16/2025 9:41 AM EDT Ruth Matthews MD LAB BLOOD ORDERABLES Final Res ult [facility] [address] [place] [address], [place] [phone] * (ABNORMAL) Magnesium (02/16/2025 6:58 AM EDT) Magnesium 1.8(L) 1.9 - 2.6 mg/dL LAB CHEMISTRY METHOD 02/16/2025 11:08 AM EDT [facility] Blood Venous blood specimen / Unknown Venipuncture / Unknown 02/16/2025 6:58 AM EDT 02/16/2025 9:41 AM EDT Ruth Matthews MD LAB BLOOD ORDERABLES Final Res ult [facility] [address] [place] [address], [place] [phone] * (ABNORMAL) Comprehensive metabolic panel (02/16/2025 6:58 AM EDT) Sodium 126(L) 133 - 145 mmol/L LAB CHEMISTRY METHOD 02/16/2025 11:10 AM [facility] Potassium 4.7 3.5 - 5.5 mmol/L LAB CHEMISTRY METHOD 02/16/2025 11:10 AM [facility] Chloride 86(L) 96 - 110 mmol/L LAB CHEMISTRY METHOD 02/16/2025 11:10 AM [facility] CO2 30 21 - 32 mmol/L LAB CHEMISTRY METHOD 02/16/2025 11:10 AM [facility] Anion Gap 10 3 - 11 LAB CHEMISTRY METHOD 02/16/2025 11:10 AM [facility] Glucose 184(H) 70 - 100 mg/dL LAB CHEMISTRY METHOD 02/16/2025 11:10 AM [facility] BUN 17 5 - 25 mg/dL LAB CHEMISTRY METHOD 02/16/2025 11:10 AM [facility] Creatinine 0.94 0.70 - 1.30 mg/dL LAB CHEMISTRY METHOD 02/16/2025 11:10 AM [facility] eGFR 86 >=60 mL/min/1. 73m2 LAB CHEMISTRY METHOD 02/16/2025 11:10 AM [facility] Comment:Calculation based on the Chronic Kidney Disease Epidemiology Collaboration (CKD-EPI) equation refit without adjustment for race. BUN/Creatinine Ratio 18.1 LAB CHEMISTRY METHOD 02/16/2025 11:10 AM [facility] Calcium 9.2 8.5 - 10.5 mg/dL LAB CHEMISTRY METHOD 02/16/2025 11:10 AM [facility] AST (SGOT) 45(H) 10 - 42 unit/L LAB CHEMISTRY METHOD 02/16/2025 11:10 AM EDT [facility] ALT (SGPT) 76(H) 10 - 60 unit/L LAB CHEMISTRY METHOD 02/16/2025 11:10 AM EDT [facility] Alkaline Phosphatase 194(H) 42 - 121 unit/L LAB CHEMISTRY METHOD 02/16/2025 11:10 AM [facility] Total Protein 7.1 6.0 - 8.0 g/dL LAB CHEMISTRY METHOD 02/16/2025 11:10 AM [facility] Albumin 2.7(L) 3.2 - 5.0 g/dL LAB CHEMISTRY METHOD 02/16/2025 11:10 AM [facility] Total Bilirubin 1.0 0.0 - 1.4 mg/dL LAB CHEMISTRY METHOD 02/16/2025 11:10 AM [facility] Blood Venous blood specimen / Unknown Venipuncture / Unknown 02/16/2025 6:58 AM EDT 02/16/2025 9:41 AM EDT us Ruth Matthews MD LAB BLOOD ORDERABLES Final Res ult [facility] [address] [place] [address], [place] [phone] documented in this encounter Visit Diagnoses Diagnosis Encounter for other general examination documented in this encounter Care Teams Messenger Office Relationship Specialty Start Date End Date Ruth Matthews MD [address] [place] [address] PCP - General Internal Medicine 02/16/25 documented as of this encounter
--- OUTSIDE RECORDS SUMMARY | 2025-07-13 13:41 | XMS_ITS | Encounter Summary ---
Author Organization [facility] Address [address] [place] [address] Care Team Providers Care Pathology Technologist Name Role Phone Ruth Matthews MD Primary Care Provider [phone] Encounter Details Date Type Department Care Team (Late st Contact Info) Description 02/23/2025 Lab Requisition [facility] - Main Lab [address] [facility] [place] [address] Ruth Matthews MD [address] [place] [address] Encounter for other general examination Social History [...] Hold for add-ons. 02/23/2025 10:01 AM EDT [facility] ([facility] Comment:Auto resulted. Blood Venous blood specimen / Unknown Venipuncture / Unknown 02/23/2025 5:18 AM EDT 02/23/2025 8:48 AM EDT Ruth Matthews MD LAB BLOOD ORDERABLES Final Res ult [facility] [address] [place] [address], * (ABNORMAL) Basic metabolic panel (02/23/2025 5:18 AM EDT) Sodium 129(L) 133 - 145 mmol/L LAB CHEMISTRY METHOD 02/23/2025 10:29 AM [facility] Potassium 4.7 3.5 - 5.5 mmol/L LAB CHEMISTRY METHOD 02/23/2025 10:29 AM [facility] Chloride 94(L) 96 - 110 mmol/L LAB CHEMISTRY METHOD 02/23/2025 10:29 AM [facility] CO2 26 21 - 32 mmol/L LAB CHEMISTRY METHOD 02/23/2025 10:29 AM [facility] Anion Gap 9 3 - 11 LAB CHEMISTRY METHOD 02/23/2025 10:29 AM [facility] Glucose 107(H) 70 - 100 mg/dL LAB CHEMISTRY METHOD 02/23/2025 10:29 AM [facility] BUN 26(H) 5 - 25 mg/dL LAB CHEMISTRY METHOD 02/23/2025 10:29 AM [facility] Creatinine 0.80 0.70 - 1.30 mg/dL LAB CHEMISTRY METHOD 02/23/2025 10:29 AM [facility] eGFR 93 >=60 mL/min/1. 73m2 LAB CHEMISTRY METHOD 02/23/2025 10:29 AM [facility] Comment:Calculation based on the Chronic Kidney Disease Epidemiology Collaboration (CKD-EPI) equation refit without adjustment for race. BUN/Creatinine Ratio 32.5 LAB CHEMISTRY METHOD 02/23/2025 10:29 AM [facility] Calcium 9.4 8.5 - 10.5 mg/dL LAB CHEMISTRY METHOD 02/23/2025 10:29 AM EDT [facility] Blood Venous blood specimen / Unknown Venipuncture / Unknown 02/23/2025 5:18 AM EDT 02/23/2025 8:48 AM EDT us Ruth Matthews MD LAB BLOOD ORDERABLES Final Res ult [facility] [address] [place] [address], documented in this encounter Visit Diagnoses Diagnosis Encounter for other general examination documented in this encounter Care Teams Pathology Technologist Relationship Specialty Start Date End Date Ruth Matthews MD [address] [place] [address] PCP - General Internal Medicine 02/16/25 documented as of this encounter
--- OUTSIDE RECORDS SUMMARY | 2025-07-13 13:41 | XMS_ITS | Encounter Summary ---
Author Organization [facility] Address [address] [place] [address] Care Team Providers Care Lace And Textiles Restorer Name Role Phone Ruth Matthews MD Primary Care Provider [phone] Encounter Details Date Type Department Care Team (Late st Contact Info) Description 02/17/2025 Lab Requisition [facility] - Main Lab 299 [facility] [place] [address] Ruth Matthews MD [address] [place] [address] Encounter for other general examination Social History [...] CHEMISTRY METHOD 02/17/2025 11:38 AM EDT [facility] Urine Urine specimen obtained by clean catch procedure / Unknown 02/17/2025 4:00 AM EDT 02/17/2025 10:23 AM EDT us Ruth Matthews MD LAB URINE ORDERABLES Final Res ult Performing Organization Address [facility]/ZIP Co de Phone Number [facility] [address] [place] [address], [place] [phone] * Sodium, urine, random (02/17/2025 4:00 AM EDT) Sodium, Ur 23 mmol/L LAB CHEMISTRY METHOD 02/17/2025 11:23 AM EDT [facility] Urine Urine specimen obtained by clean catch procedure / Unknown 02/17/2025 4:00 AM EDT 02/17/2025 10:23 AM EDT us Ruth Matthews MD LAB URINE ORDERABLES Final Res ult Performing Organization Address [facility] Co de Phone Number [facility] [address] [place] [address], [place] [phone] documented in this encounter Visit Diagnoses Diagnosis Encounter for other general examination documented in this encounter Care Teams Lace And Textiles Restorer Relationship Specialty Start Date End Date Ruth Matthews MD [address] [place] [address] PCP - General Internal Medicine 02/16/25 documented as of this encounter
--- OUTSIDE RECORDS SUMMARY | 2025-07-13 13:41 | XMS_ITS | Encounter Summary ---
Author Organization [facility] Address [address] [place] [address] Care Team Providers Care Industrial Servicer Name Role Phone Ruth Matthews MD Primary Care Provider [phone] Encounter Details Date Type Department Care Team (Late st Contact Info) Description 02/20/[address] [facility] - Main Lab [address] [place] [address] Ruth Matthews MD [address] [place] [address] Encounter for other general examination Social History [...] LAB CHEMISTRY METHOD 02/20/2025 11:24 AM EDT [facility] ([facility] Blood Venous blood specimen / Unknown Venipuncture / Unknown 02/20/2025 7:07 AM EDT 02/20/2025 9:43 AM EDT Ruth Matthews MD LAB BLOOD ORDERABLES Final Res ult Performing Organization Address [facility]/ZIP Co de Phone Number [facility] [address] [place] [address], * (ABNORMAL) Sodium (02/20/2025 7:07 AM EDT) Sodium 128(L) 133 - 145 mmol/L LAB CHEMISTRY METHOD 02/20/2025 11:24 AM EDT [facility] Blood Venous blood specimen / Unknown Venipuncture / Unknown 02/20/2025 7:07 AM EDT 02/20/2025 9:43 AM EDT Ruth Matthews MD LAB BLOOD ORDERABLES Final Res ult Performing Organization Address [facility] Co de Phone Number [facility] [address] [place] [address], documented in this encounter Visit Diagnoses Diagnosis Encounter for other general examination documented in this encounter Care Teams Industrial Servicer Relationship Specialty Start Date End Date Ruth Matthews MD [address] [place] [address] PCP - General Internal Medicine 02/16/25 documented as of this encounter
--- OUTSIDE RECORDS SUMMARY | 2025-07-13 13:41 | XMS_ITS | Encounter Summary ---
Author Organization [facility] Address [address] [place] [address] Care Team Providers Care Military Science Teacher Name Role Phone Ruth Matthews MD Primary Care Provider [phone] Encounter Details Date Type Department Care Team (Late st Contact Info) Description 02/19/2025 Lab Requisition [facility] - Main Lab [address] [facility] [place] [address] Ruth Matthews MD [address] [place] [address] Encounter for other general examination Social History [...] CBC auto differential (02/19/2025 6:29 AM EDT) [facility] Signature WBC 6.4 4.8 - 10.8 K/mcL LAB HEMETOLOGY METHOD 02/19/2025 11:08 AM [facility] RBC 3.00(L) 4.50 - 5.50 M/mcL LAB HEMETOLOGY METHOD 02/19/2025 11:08 AM [facility] Hemoglobin 9.1(L) 13.5 - 17.5 g/dL LAB HEMETOLOGY METHOD 02/19/2025 11:08 AM [facility] Hematocrit 28.3(L) 42.0 - 54.0 % LAB HEMETOLOGY METHOD 02/19/2025 11:08 AM [facility] MCV 94.6 79.0 - 98.0 FL LAB HEMETOLOGY METHOD 02/19/2025 11:08 AM [facility] MCH 30.4 27.0 - 32.0 pcg LAB HEMETOLOGY METHOD 02/19/2025 11:08 AM [facility] MCHC 32.2 32.0 - 37.0 g/dL LAB HEMETOLOGY METHOD 02/19/2025 11:08 AM [facility] RDW 14.1 11.0 - 15.0 % LAB HEMETOLOGY METHOD 02/19/2025 11:08 AM [facility] Platelets 591(H) 130 - 400 K/mcL LAB HEMETOLOGY METHOD 02/19/2025 11:08 AM [facility] MPV 9.3 7.0 - 11.0 FL LAB HEMETOLOGY METHOD 02/19/2025 11:08 AM [facility] NRBC 0.0 <1.0 % LAB HEMETOLOGY METHOD 02/19/2025 11:08 AM [facility] NRBC Absolute 0.00 <0.10 K/mcL LAB HEMETOLOGY METHOD 02/19/2025 11:08 AM [facility] Neutrophils Relative 49.1 % LAB HEMETOLOGY METHOD 02/19/2025 11:08 AM [facility] Lymphocytes Relative 21.6 % LAB HEMETOLOGY METHOD 02/19/2025 11:08 AM [facility] Monocytes Relative 23.1 % LAB HEMETOLOGY METHOD 02/19/2025 11:08 AM [facility] Eosinophils Relative 4.9 % LAB HEMETOLOGY METHOD 02/19/2025 11:08 AM [facility] Basophils Relative 1.1 % LAB HEMETOLOGY METHOD 02/19/2025 11:08 AM [facility] Immature Granulocytes Relative 0.2 % LAB HEMETOLOGY METHOD 02/19/2025 11:08 AM [facility] Neutrophils Absolute 3.12 1.50 - 7.00 K/mcL LAB HEMETOLOGY METHOD 02/19/2025 11:08 AM [facility] Lymphocytes Absolute 1.37 1.00 - 5.00 K/mcL LAB HEMETOLOGY METHOD 02/19/2025 11:08 AM [facility] Monocytes Absolute 1.47(H) 0.20 - 1.00 K/mcL LAB HEMETOLOGY METHOD 02/19/2025 11:08 AM [facility] Eosinophils Absolute 0.31 0.00 - 0.50 K/mcL LAB HEMETOLOGY METHOD 02/19/2025 11:08 AM [facility] Basophils Absolute 0.07 0.00 - 0.20 K/mcL LAB HEMETOLOGY METHOD 02/19/2025 11:08 AM [facility] Immature Granulocytes Absolute 0.01 0.00 - 0.03 K/mcL LAB HEMETOLOGY METHOD 02/19/2025 11:08 AM EDT [facility] Blood Venous blood specimen / Unknown Venipuncture / Unknown 02/19/2025 6:29 AM EDT 02/19/2025 10:04 AM EDT Ruth Matthews MD LAB BLOOD ORDERABLES Final Res ult Performing Organization Address City/[facility]/ZIP Co de Phone Number [facility] [address] [place] [address], [place] [phone] * (ABNORMAL) Sedimentation rate (02/19/2025 6:29 AM EDT) Pathologist [facility] Sed Rate 80(H) 0 - 20 mm/hr LAB HEMETOLOGY METHOD 02/19/2025 11:22 AM EDT [facility] Blood Venous blood specimen / Unknown Venipuncture / Unknown 02/19/2025 6:29 AM EDT 02/19/2025 10:04 AM EDT Ruth Matthews MD LAB BLOOD ORDERABLES Final Res ult Performing Organization Address [facility] Co de Phone Number [facility] [address] [place] [address], [place] [phone] * (ABNORMAL) C-reactive protein (02/19/2025 6:29 AM EDT) C-Reactive Protein 7.99(H) <=0.50 mg/dL LAB CHEMISTRY METHOD 02/19/2025 1:47 PM EDT [facility] Blood Venous blood specimen / Unknown Venipuncture / Unknown 02/19/2025 6:29 AM EDT 02/19/2025 10:04 AM EDT Ruth Matthews MD LAB BLOOD ORDERABLES Final Res ult Performing Organization Address City/[facility]/ZIP Co de Phone Number [facility] [address] [place] [address], [place] [phone] * Creatine kinase (02/19/2025 6:29 AM EDT) [facility] Total CK 149 22 - 269 unit/L LAB CHEMISTRY METHOD 02/19/2025 1:47 PM EDT [facility] Blood Venous blood specimen / Unknown Venipuncture / Unknown 02/19/2025 6:29 AM EDT 02/19/2025 10:04 AM EDT us Ruth Matthews MD LAB BLOOD ORDERABLES Final Res ult [facility] [address] [place] [address], [place] [phone] * (ABNORMAL) Basic metabolic panel (02/19/2025 6:29 AM EDT) [facility] Sodium 127(L) 133 - 145 mmol/L LAB CHEMISTRY METHOD 02/19/2025 1:47 PM [facility] Potassium 4.7 3.5 - 5.5 mmol/L LAB CHEMISTRY METHOD 02/19/2025 1:47 PM [facility] Chloride 91(L) 96 - 110 mmol/L LAB CHEMISTRY METHOD 02/19/2025 1:47 PM [facility] CO2 23 21 - 32 mmol/L LAB CHEMISTRY METHOD 02/19/2025 1:47 PM [facility] Anion Gap 13(H) 3 - 11 LAB CHEMISTRY METHOD 02/19/2025 1:47 PM T [facility] Glucose 133(H) 70 - 100 mg/dL LAB CHEMISTRY METHOD 02/19/2025 1:47 PM [facility] BUN 20 5 - 25 mg/dL LAB CHEMISTRY METHOD 02/19/2025 1:47 PM [facility] Creatinine 1.08 0.70 - 1.30 mg/dL LAB CHEMISTRY METHOD 02/19/2025 1:47 PM EDT [facility] eGFR 72 >=60 mL/min/1. 73m2 LAB CHEMISTRY METHOD 02/19/2025 1:47 PM EDT [facility] Comment:Calculation based on the Chronic Kidney Disease Epidemiology Collaboration (CKD-EPI) equation refit without adjustment for race. BUN/Creatinine Ratio 18.5 LAB CHEMISTRY METHOD 02/19/2025 1:47 PM EDT [facility] Calcium 9.2 8.5 - 10.5 mg/dL LAB CHEMISTRY METHOD 02/19/2025 1:47 PM EDT [facility] Blood Venous blood specimen / Unknown Venipuncture / Unknown 02/19/2025 6:29 AM EDT 02/19/2025 10:04 AM EDT us Ruth Matthews MD LAB BLOOD ORDERABLES Final Res ult [facility] [address] [place] [address], documented in this encounter Visit Diagnoses Diagnosis Encounter for other general examination documented in this encounter Care Teams Military Science Teacher Relationship Specialty Start Date End Date Ruth aMtthews MD [address] [place] [address] PCP - General Internal Medicine 02/16/25 documented as of this encounter
--- OUTSIDE RECORDS SUMMARY | 2025-07-13 13:41 | XMS_ITS | Encounter Summary ---
Author Organization [facility] Address [address] [place] [address] Phone Support Name Relationship Address Phone Amy Varela Emergency Contact [address] [place] [address] Keysha Cox Emergency Contact [address] [place] [address] Care Team Providers Care Mechanical Detailer Name Role Phone Cornelia Membreno MD Primary Care Provider [phone] Bakari Henson MD Unavailable [phone] Cornelia Membreno MD Unavailable [phone] Art Ley MD Unavailable Tony Senior BUGGYMAN Unavailable [phone] Chino Sales CHROME PLATER HELPER Unavailable [phone] Akira Malik MD Unavailable [phone] Nikunj Serna MD Unavailable Alejo Merlos MD Unavailable [phone] Jackelyn Phipps CHROME PLATER HELPER Unavailable [phone] Cornelia Membreno MD Unavailable [phone] Cornelia Membreno MD Unavailable [phone] Kaitlin Greene OT Unavailable [phone] Reason for Referral * Physical Therapy (Urgent) - Closed Specialty Diagnoses / Procedures Referred By Contac t Referred To Contact Physical Therapy Diagnoses Encounter for rehabilitation System, Provider Not In, [facility] [address] [address] [facility] [address] [place] [address] Phone: tel: Referral ID Status Reason Start Date Expiration Date Visits Re quested Visits Authorized [id number] Closed 09/09/2017 10/24/2018 99 99 Encounter Details Date Type Department Care Team (Latest Contact Info) Description 09/09/2017 Transcribe Orders [facility] [address] [place] [address] Cornelia Membreno MD [address] [place] [address], [address] [place] [address] [email or web address] Encounter for rehabilitation (Primary Dx) Social [...] Info) Description 12/05/2024 Procedure [facility] [address] [place] [address] 10/29/2025 8:30 AM EST Appointment [facility] [address] [place] [address] Cindy Russell, MICHELLE [address] [place] [address], [address] [place] [address] 11/01/2025 9:10 AM EST Office Visit [facility] [address] [place] [address] [place] [address] Alejo Elam DO [address] [place] [address] 11/16/2025 11:40 AM EST Office Visit [facility] [address] [place] [address] 3rd Floor, [address] [place] [address] Win Zheng MD [address] [facility], [address] [place] [address] [email or web address] Scheduled Referrals Name Type Priority Associated Diagnoses Orde r Schedule Ambulatory referral to [facility] Physical Therapy Outpatient Referral Routine Encounter for [...] documented as of this encounter Care Teams Mechanical Detailer Relationship Specialty Start Date End Date Cornelia Membreno MD [address] [place] [address], [address] [place] [address] PCP - General 08/12/17 Bakari Henson MD [address] [place] [address] Historical LMR Provider 08/14/17 11/01/21 Cornelia Membreno MD [address] [place] [address], [address] [place] [address] Historical LMR Provider 08/14/17 Art Ley MD [address] [place] [address] [email or web address] Historical LMR Provider 08/14/17 11/01/21 Tony Senior, GAMAL [address] [place] [address] 2_[place] [address] [email or web address] Historical LMR Provider 08/14/17 02/06/20 Chino Sales, CHROME PLATER HELPER [address] [place] [address], [address] [place] [address] Historical LMR Provider 08/14/17 02/06/20 Akira Malik MD [address] [place] [address], 2nd [place] [address] Historical LMR Provider 08/14/17 11/01/21 Nikunj Serna MD [address] [place] [address], [address] [place] [address] Historical LMR Provider 08/14/17 02/06/20 Alejo Merlos MD [address] [place] [address], [address] [place] [address] Historical LMR Provider 08/14/17 Jackelyn Phipps, TOSHIA [address] [place] [address], [address] [place] [address] [email or web address] Historical LMR Provider 08/14/1702/05 Cornelia Membreno MD [address] [facility], [address] [place] [address] [email or web address] Insurance Assigned Provider 01/22/18 05/30/23 Cornelia Membreno MD [address] [facility], [address] [place] [address] [email or web address] Insurance Assigned Provider 01/28/25 Kaitlin Greene, OT [address] [place] [address] [email or web address] Transitions Force DispatcherSnow Plow Operator Therapy 04/23/25 04/24/25 documented as of this encounter Additional Source Comments The information contained in this document represents components of the legal health record. It is not the complete legal health record.[facility]
--- OUTSIDE RECORDS SUMMARY | 2025-07-13 13:41 | XMS_ITS | Encounter Summary ---
Author Organization [facility] Address [address] [facility] [address] [place] [address] Phone Care Team Providers Care Private Security Guard Name Role Phone Cornelia Membreno MD Primary Care Provider [phone] Cornelia Membreno MD Unavailable [phone] Reason for Visit * Reason Comments Medication Refill Encounter Details Date Type Department Care Team (Late st Contact Info) Description 05/26/2025 Refill [facility] [address] [facility] 3rd Floor, [address] [place] [address] Colton Craft DO [address] [facility] [address] [place] [address] [email or web address] Medication Refill Social History Tobacco Use Types [...] Info) Description 12/05/2024 Procedure Pass [facility] [address] [place] [address] 10/29/2025 8:30 AM EST Appointment [facility] [address] [place] [address] Cindy Russell, MICHELLE [address] [place] [address], [address] [address] 11/01/2025 9:10 AM EST Office Visit [facility] [address] [place] [address] [place] [address] Alejo Elam DO [address] [place] [address] 11/16/2025 11:40 AM EST Office Visit [facility] [address] [place] [address] 3rd Floor, [address] [address] Win Zheng MD [address] [place] [address] documented as of this encounter Visit Diagnoses Diagnosis Essential hypertension Unspecified essential hypertension documented in this encounter Additional Health Concerns Assessment Noted Time PHQ-2 Depression Total Score: 0 04/17/20 24 2:22 PM EDT documented as of this encounter Care Teams Private Security Guard Relationship Specialty Start Date End Date Cornelia Membreno MD [address] [place] [address], [address] [place] [address] PCP - General 08/12/17 Cornelia Membreno MD [address] [place] [address], [address] [place] [address] (work) [email or web address] Insurance Assigned Provider 01/28/25 documented as of this encounter Additional Source Comments The information contained in this document represents components of the legal health record. It is not the complete legal health record.[facility]
--- OUTSIDE RECORDS SUMMARY | 2025-07-13 13:41 | XMS_ITS | Encounter Summary ---
Author Organization [facility] Address [address] [place] [address] Care Team Providers Care Mcat Tutor Name Role Phone Ruth Matthews MD Primary Care Provider [phone] Encounter Details Date Type Department Care Team (Late st Contact Info) Description 02/17/2025 Lab Requisition [facility] - Main Lab [address] [place] [address] Ruth Matthews MD [address] [place] [address] Encounter for other general examination Social History [...] Hold for add-ons. 02/17/2025 12:01 PM EDT [facility] ([facility] LAB Comment:Auto resulted. Blood Venous blood specimen / Unknown 02/17/2025 5:51 AM EDT 02/17/2025 10:38 AM EDT us Ruth Matthews MD LAB BLOOD ORDERABLES Final Res ult Performing Organization Address City/[facility]/ZIP Co de Phone Number [facility] [address] [place] [address], [place] [phone] * (ABNORMAL) Osmolality (02/17/2025 5:51 AM EDT) [facility] Osmolality Alfredo 274(L) 280 - 300 mOsm/kg LAB CHEMISTRY METHOD 02/17/2025 11:47 AM EDT [facility] Blood Venous blood specimen / Unknown Venipuncture / Unknown 02/17/2025 5:51 AM EDT 02/17/2025 9:33 AM EDT us Ruth Matthews MD LAB BLOOD ORDERABLES Final Res ult Performing Organization Address [facility] Co de Phone Number [facility] [address] [place] [address], [place] [phone] * (ABNORMAL) Comprehensive metabolic panel (02/17/2025 5:51 AM EDT) [facility] Sodium 128(L) 133 - 145 mmol/L LAB CHEMISTRY METHOD 02/17/2025 11:31 AM T [facility] Potassium 4.4 3.5 - 5.5 mmol/L LAB CHEMISTRY METHOD 02/17/2025 11:31 AM EDT [facility] Chloride 89(L) 96 - 110 mmol/L LAB CHEMISTRY METHOD 02/17/2025 11:31 AM EDT [facility] CO2 33(H) 21 - 32 mmol/L LAB CHEMISTRY METHOD 02/17/2025 11:31 AM T [facility] Anion Gap 6 3 - 11 LAB CHEMISTRY METHOD 02/17/2025 11:31 AM EDT [facility] Glucose 126(H) 70 - 100 [...] MD LAB BLOOD ORDERABLES Final Res ult [facility] ([facility]) [facility] [address] [place] [address], documented in this encounter Visit Diagnoses Diagnosis Encounter for other general examination documented in this encounter Care Teams Mcat Tutor Relationship Specialty Start Date End Date Ruth Matthews MD [address] [place] [address] PCP - General Internal Medicine 02/16/25 documented as of this encounter
--- OUTSIDE RECORDS SUMMARY | 2025-07-13 13:41 | XMS_ITS | Encounter Summary ---
Author Organization [facility] Address [address] [place] [address] Phone Support Name Relationship Address Phone Amy Varela Emergency Contact [address] [place] [address] Keysha Cox Emergency Contact [address] [place] [address] Care Team Providers Care Bacteriologist Pharmaceutical Name Role Phone Cornelia Membreno MD Primary Care Provider [phone] Bakari Henson MD Unavailable [phone] Cornelia Membreno MD Unavailable [phone] Art Ley MD Unavailable Tony Senior LINUX SYSTEM ADMIN Unavailable Chino Sales LOST AND FOUND CLERK Unavailable [phone] Akira Malik MD Unavailable [phone] Nikunj Serna MD Unavailable [phone] Alejo Merlos MD Unavailable [phone] Jackelyn Phipps LOST AND FOUND CLERK Unavailable [phone] Cornelia Membreno MD Unavailable [phone] Cornelia Membreno MD Unavailable [phone] Kaitlin Greene OT Unavailable [phone] Reason for Referral * Consultation (Routine) - Closed Specialty Diagnoses / Procedures Referred By Contac t Referred To Contact Cardiac Rehabilitation Diagnoses S/P aortic valve replacement Kaila Hendrix, LINUX SYSTEM ADMIN [address] [facility] [place] [address] Phone: tel: fax: [facility] [address] [place] [address] Phone: tel: Referral ID Status Reason Start Date Expiration Date Visits Re quested Visits Authorized [id number] Closed 08/16/2019 08/16/2020 1 1 Encounter Details Date Type Department Care Team ([facility] Contact Info) Description 08/16/2019 Transcribe Orders Virtual Department [address] [place] [address] Kaila Hendrix NP [address] [place] [address] S/P aortic valve replacement (Primary Dx) Social [...] Info) Description 12/05/2024 Procedure Pass [facility] [address] [place] [address] 10/29/2025 8:30 AM EST Appointment [facility] [address] [place] [address] Cindy Russell, [facility] [address] [facility], [address] [place] [address] 11/01/2025 9:10 AM EST Office Visit [facility] [address] [place] [address] [place] [address] Alejo Elam DO [address] [place] [address] 11/16/2025 11:40 AM EST Office Visit [facility] [address] [facility] 3rd Floor, [address] [place] [address] Win Zheng MD [address] [facility], [address] [place] [address] [email or web address] Scheduled Referrals Name Type Priority Associated Diagnoses Orde r Schedule Ambulatory referral to [facility] Cardiac Rehab Outpatient Referral Routine S/P [...] documented as of this encounter Care Teams Bacteriologist Pharmaceutical Relationship Specialty Start Date End Date Cornelia Membreno MD [address] [place] [address], [address] [place] [address] PCP - General 08/12/17 Bakari Henson MD [address] [place] [address] Historical LMR Provider 08/14/17 11/01/21 Cornelia Membreno MD [address] [place] [address], [address] [place] [address] Historical LMR Provider 08/14/17 Art Ley MD [address] [place] [address] [email or web address] Historical LMR Provider 08/14/17 11/01/21 Tony Senior, GAMAL [address] [place] [address] 2_[place] [address] [email or web address] Historical LMR Provider 08/14/17 02/06/20 Chino Sales CNP [address] [place] [address] Historical LMR Provider 08/14/17 02/06/20 Akira Malik MD [address] [place] [address] Historical LMR Provider 08/14/17 11/01/21 Nikunj Serna MD [address] [place] [address], [address] [address] Historical LMR Provider 08/14/17 02/06/20 Alejo Merlos MD [address] [facility], [address] [place] [address] Historical LMR Provider 08/14/17 Jackelyn hPipps CNP [address] [facility], [address] [place] [address] Historical LMR Provider 08/14/1702/05 Cornelia Membreno MD [address] [facility], [address] [place] [address] Insurance Assigned Provider 01/22/18 05/30/23 oCrnelia Membreno MD [address] [place] [address], [address] [place] [address] Insurance Assigned Provider 01/28/25 Kaitlin Greene, [address] [address] Transitions Scientific Glass BlowerNursing Professor Therapy 04/23/25 04/24/25 documented as of this encounter Additional Source Comments The information contained in this document represents components of the legal health record. It is not the complete legal health record.[facility]
--- OUTSIDE RECORDS SUMMARY | 2025-07-13 13:41 | XMS_ITS | Encounter Summary ---
Author Organization [facility] Address [address] [place] [address] Phone Support Name Relationship Address Phone Amy Varela Emergency Contact [address] [place] [address] Keysha Cox Emergency Contact [address] [place] [address] Care Team Providers Care Slimer Name Role Phone Cornelia Membreno MD Primary Care Provider [phone] Bakari Henson MD Unavailable [phone] Cornelia Membreno MD Unavailable [phone] Art Ley MD Unavailable Tony Senior SENIOR UI UX DESIGNER Unavailable [phone] Chino Sales CONTROL SPECIALIST Unavailable [phone] Akira Malik MD Unavailable [phone] Nikunj Serna MD Unavailable [phone] Alejo Merlos MD Unavailable [phone] Jackelyn Phipps CONTROL SPECIALIST Unavailable [phone] Cornelia Membreno MD Unavailable [phone] Cornelia Membreno MD Unavailable [phone] Kaitlin Greene OT Unavailable Encounter Details Date Type Department Care Team (Latest Contact Info) Description 08/22/2019 Transcribe Orders Non-Invasive Cardiology [address] [place], [place] [id number] Colton Farr MD [address] [place] [address] [email or web address] Essential hypertension (Primary Dx) Social History Tobacco [...] Info) Description 12/05/2024 Procedure Pass Echo [facility] [address] [address] 10/29/2025 8:30 AM EST Appointment Echo Lab [address] [address] Cindy Russell DNP [address] [place] [address] 11/01/2025 9:10 AM EST Office Visit [facility] [address] [place] [address] Alejo Elam DO [address] [place] [address] 11/16/2025 11:40 AM EST Office Visit [facility] [address] [place] [address] 3rd Floor, [address] [address] Win Zheng MD [address] [place] [address] documented as of this encounter Results * ECG 12-LEAD (08/22/2019 9:46 AM EDT) Ventricular Rate EKG/MIN 63 BPM [facility] Atrial Rate 63 BPM [facility] HI Interval 128 ms [facility] QRS Duration 118 ms [facility] QT Interval 466 ms [facility] QTC Interval 476 ms [facility] P [place] 56 degrees [facility] R Wave [place] 100 degrees [facility] T Wave [place] 251 degrees [facility] 08/22/2019 9:46 AM EDT [...] documented as of this encounter Care Teams Slimer Relationship Specialty Start Date End Date Cornelia Membreno MD [address] [place] [address], [address] [place] [address] PCP - General 08/12/17 Bakari Henson MD [address] [place] [address] [email or web address] Historical LMR Provider 08/14/17 11/01/21 Cornelia Membreno MD [address] [place] [address], [address] [place] [address] Historical LMR Provider 08/14/17 Art Ley MD [address] [place] [address] [email or web address] Historical LMR Provider 08/14/17 11/01/21 Tony Senior, GAMAL [address] [place] [address] 2_[place] [address] [email or web address] Historical LMR Provider 08/14/17 02/06/20 Chino Sales, TOSHIA [address] [place] [address], [address] [place] [address] Historical LMR Provider 08/14/17 02/06/20 Akira Malik MD [address] [place] [address] Historical LMR Provider 08/14/17 11/01/21 Nikunj Serna MD [address] [place] [address], [address] [place] [address] Historical LMR Provider 08/14/17 02/06/20 Alejo Merlos MD [address] [place] [address], [address] [place] [address] Historical LMR Provider 08/14/17 Jackelyn Phipps CNP [address] [place] [address], [address] [address] Historical LMR Provider 08/14/1702/05 Cornelia Membreno MD [address] [place] [address], [address] [place] [address] Insurance Assigned Provider 01/22/18 05/30/23 Cornelia Membreno MD [address] [place] [address], [address] [place] [address] Insurance Assigned Provider 01/28/25 Kaitlin Greene, OT [address] [place] [address] Transitions Manufacturing ControllerTailor Apprentice Therapy 04/23/25 04/24/25 documented as of this encounter Additional Source Comments The information contained in this document represents components of the legal health record. It is not the complete legal health record.[facility]
--- OUTSIDE RECORDS SUMMARY | 2025-07-13 13:41 | XMS_ITS | Clinical Summary ---
Author Organization [facility] Address [address] [place] [address] Phone Care Team Providers Care Hydroponics Worker Name Role Phone Ruth Matthews MD Primary Care Provider [phone] Social History Tobacco Use Types Packs/Day Years [...] [facility] Comment:Calculation based on the Chronic Kidney Disease Epidemiology Collaboration (CKD-EPI) equation refit without adjustment for race. BUN/Creatinine Ratio 32.5 LAB CHEMISTRY METHOD 02/23/2025 10:29 AM [facility] Calcium 9.4 8.5 - 10.5 mg/dL LAB CHEMISTRY METHOD 02/23/2025 10:29 AM [facility] Blood Venous blood specimen / Unknown Venipuncture / Unknown 02/23/2025 5:18 AM EDT 02/23/2025 8:48 AM EDT us Ruth Matthews MD LAB BLOOD ORDERABLES Final Res ult [facility] [address] [place] [address], from Last 3 Months or Most Recently Relevant to Health Maintenance Insurance [facility] Care Teams Hydroponics Worker Relationship Specialty Start Date End Date Ruth Matthews MD [address] [place] [address] PCP - General Internal Medicine 02/16/25
--- OUTSIDE RECORDS SUMMARY | 2025-07-13 13:41 | XMS_ITS | Encounter Summary ---
Author Organization [facility] Address [address] [place] [address] Care Team Providers Care All Source Intelligence Analyst Name Role Phone Ruth Matthews MD Primary Care Provider [phone] Encounter Details Date Type Department Care Team (Late st Contact Info) Description 02/20/[address] [facility] [address] [place] [address] Ruth Matthews MD [address] [place] [address] Encounter for other general examination Social History [...] LAB CHEMISTRY METHOD 02/20/2025 1:42 PM EDT [facility] Urine Urine specimen obtained by clean catch procedure / Unknown Non-blood Collection / Unknown 02/20/2025 5:04 AM EDT 02/20/2025 10:11 AM EDT us Ruth Matthews MD LAB URINE ORDERABLES Final Res ult [facility] [address] [place] [address], documented in this encounter Visit Diagnoses Diagnosis Encounter for other general examination documented in this encounter Care Teams All Source Intelligence Analyst Relationship Specialty Start Date End Date Ruth Matthews MD [address] [place] [address] PCP - General Internal Medicine 02/16/25 documented as of this encounter
--- OUTSIDE RECORDS SUMMARY | 2025-07-13 13:42 | XMS_ITS | Encounter Summary ---
Author Organization [facility] Address [address] [place] [address] Phone Care Team Providers Care Honey Processor Name Role Phone Cornelia Membreno MD Primary Care Provider + [phone] Bakari Henson MD Unavailable [phone] Art Ley MD Unavailable Akira Malik MD Unavailable [phone] Cornelia Membreno MD Unavailable [phone] Cornelia Membreno MD Unavailable [phone] Kaitlin Greene OT Unavailable [phone] Encounter Details Date Type Department Care Team (Late st Contact Info) Description 10/30/2020 Ancillary Orders [facility],Outside Imaging [address] [place] [address] System, Provider Not In, [facility] [address] [address] Social History Tobacco Use Types Packs/Day Years [...] Description 12/05/2024 Procedure Pass Echo Lab [address] [place] [address] 10/29/2025 8:30 AM EST Appointment Echo Lab [address] [place] [address] Cindy Russell, MICHELLE [address] [place] [address] 11/01/2025 9:10 AM EST Office Visit [facility] [address] [place] [address] Alejo Elam DO [address] [place] [address] 11/16/2025 11:40 AM EST Office Visit [facility] [address] [place] [address] 3rd Floor, [address] [address] Win Zheng MD [address] [place] [address] documented as of this encounter Results * [...] documented as of this encounter Care Teams Honey Processor Relationship Specialty Start Date End Date Cornelia Membreno MD [address] [place] [address], [address] [address] PCP - General 08/12/17 Bakari Henson MD [address] [place] [address] [email or web address] Historical LMR Provider 08/14/17 11/01/21 Art Ley MD [address] [place] [address] [email or web address] Historical LMR Provider 08/14/17 11/01/21 Akira Malik MD [address] [place] [address] Historical LMR Provider 08/14/17 11/01/21 Cornelia Membreno MD [address] [place] [address], [address] [address] Insurance Assigned Provider 01/22/18 05/30/23 Cornelia Membreno MD [address] [place] [address], [address] [place] [address] [email or web address] Insurance Assigned Provider 01/28/25 Kaitlin Greene, OT [address] [place] [address] [email or web address] Transitions Scooping Machine TenderSaturator Therapy 04/23/2504/24/25 documented as of this encounter Additional Source Comments The information contained in this document represents components of the legal health record. It is not the complete legal health record.[facility]
--- OUTSIDE RECORDS SUMMARY | 2025-07-13 13:44 | XMS_ITS | Encounter Summary ---
Author Organization [facility] Address [address] [facility] [address] [place] [address] Phone Care Team Providers Care Real Estate Consultant Name Role Phone Cornelia Membreno MD Primary Care Provider + [phone] Cornelia Membreno MD Unavailable [phone] Kaitlin Greene OT Unavailable [phone] Encounter Details Date Type Department Care Team (Late st Contact Info) Description 02/22/2025 Telephone [facility] [address] [place] [address] Cornelia Membreno MD [address] [facility], [address] [place], [place] [phone] [email or web address] Social History Tobacco Use Types Packs/Day Years [...] Info) Description 12/05/2024 Procedure Pass Echo Lab [address] [address] 10/29/2025 8:30 AM EST Appointment Echo Lab [address] [address] Cindy Russell, MICHELLE [address] [place] [address] 11/01/2025 9:10 AM EST Office Visit [facility] [address] [place] [address] Alejo Elam DO [address] [place] [address] 11/16/2025 11:40 AM EST Office Visit [facility] [address] [place] [address] 3rd Floor, [address] [address] Win Zheng MD [address] [place] [address] documented as of this encounter Visit Diagnoses Not on filedocumented in this encounter Additional Health Concerns Assessment Noted Time PHQ-2 Depression Total Score: 0 04/17/20 24 2:22 PM EDT documented as of this encounter Care Teams Real Estate Consultant Relationship Specialty Start Date End Date Cornelia Membreno MD [address] [place] [address], [address] [place] [address] PCP - General 08/12/17 Cornelia Membreno MD [address] [place] [address], [address] [place] [address] [email or web address] Insurance Assigned Provider 01/28/25 Kaitlin Greene, OT [address] [place] [address] [email or web address] Transitions Furnace HandCrusher Screen Repairer Therapy 04/23/2504/24/25 documented as of this encounter Additional Source Comments The information contained in this document represents components of the legal health record. It is not the complete legal health record.[facility]
--- OUTSIDE RECORDS SUMMARY | 2025-07-13 13:44 | XMS_ITS | Encounter Summary ---
Author Organization [facility] Address [address] [place] [address] [place] [address] Phone Support Name Relationship Address Phone Amy Campbell Micnataliia Emergency Contact [address] [place] [address] Kyesha Cox Emergency Contact [address] [place] [address] Care Team Providers Care Plant Maintenance Engineer Name Role Phone Cornelia Membreno MD Primary Care Provider + [phone] Bakari Henson MD Unavailable [phone] Art Ley MD Unavailable [phone] Akira Malik MD Unavailable [phone] Cornelia Membreno MD Unavailable [phone] Cornelia Membreno MD Unavailable [phone] Kaitlin Greene OT Unavailable [phone] Encounter Details Date Type Department Care Team (Late st Contact Info) Description 10/26/2020 Procedure Pass [facility] [address] [place] [address] Social History Tobacco Use Types [...] Description 12/05/2024 Procedure Pass [facility] [address] [place] [address] 10/29/2025 8:30 AM EST Appointment [facility] [address] [place] [address] Cindy Russell, MICHELLE [address] [place] [address] 11/01/2025 9:10 AM EST Office Visit [facility] [address] [place] [address] [place] [address] Alejo Elam DO [address] [place] [address] 11/16/2025 11:40 AM EST Office Visit [facility] [address] [place] [address] 3rd Floor, [address] [address] Win Zheng MD [address] [place] [address] documented as of this encounter Visit Diagnoses [...] documented as of this encounter Care Teams Plant Maintenance Engineer Relationship Specialty Start Date End Date Cornelia Membreno MD [address] [place] [address], [address] [place] [address] PCP - General 08/12/17 Bakari Henson MD [address] [place] [address] [email or web address] Historical LMR Provider 08/14/17 11/01/21 Art Ley MD [address] [place] [address] [email or web address] Historical LMR Provider 08/14/17 11/01/21 Akira Malik MD [address] [place] [address] [email or web address] Historical LMR Provider 08/14/17 11/01/21 Cornelia Membreno MD [address] [place] [address], [address] [place] [address] Insurance Assigned Provider 01/22/18 05/30/23 Cornelia Membreno MD [address] [place] [address], [address] [place] [address] Insurance Assigned Provider 01/28/25 Kaitlin Greene, OT [address] [place] [address] Transitions Senior Research Project ManagerVeterinary Science Teacher Therapy 04/23/2504/24/25 documented as of this encounter Additional Source Comments The information contained in this document represents components of the legal health record. It is not the complete legal health record.[facility]
--- OUTSIDE RECORDS SUMMARY | 2025-07-13 13:44 | XMS_ITS | Encounter Summary ---
Author Organization [facility] Address [address] [place] [address] [place] [address] Phone Care Team Providers Care Environmental Director Name Role Phone Cornelia Membreno MD Primary Care Provider [phone] Cornelia Membreno MD Unavailable [phone] Kaitlin Greene OT Unavailable [phone] Encounter Details Date Type Department Care Team (Late st Contact Info) Description 09/11/2024 Procedure Pass [facility] Admitting Dept Virtual Department [address] [place] [address] Social History Tobacco Use Types Packs/Day Years [...] Info) Description 12/05/2024 Procedure Pass Echo Lab [address] [address] 10/29/2025 8:30 AM EST Appointment Echo Lab [address] [address] Cindy Russell, MICHELLE [address] [place] [address], [address] [address] 11/01/2025 9:10 AM EST Office Visit [facility] [address] [place] [address] Alejo Elam DO [address] [place] [address] 11/16/2025 11:40 AM EST Office Visit [facility] [address] [place] [address] 3rd Floor, [address] [address] Win Zheng MD [address] [place] [address] documented as of this encounter Visit Diagnoses Not on filedocumented in this encounter Additional Health Concerns Assessment Noted Time PHQ-2 Depression Total Score: 0 04/17/20 24 2:22 PM EDT documented as of this encounter Care Teams Environmental Director Relationship Specialty Start Date End Date Cornelia Membreno MD [address] [place] [address], [address] [place] [address] PCP - General 08/12/17 Cornelia Membreno MD [address] [place] [address], [address] [place] [address] Insurance Assigned Provider 01/28/25 Kaitlin Greene, OT [address] [place] [address] [email or web address] Transitions Ball Thread Machine TenderReefer Truck Driver Therapy 04/23/2504/24/25 documented as of this encounter Additional Source Comments The information contained in this document represents components of the legal health record. It is not the complete legal health record.[facility]
--- OUTSIDE RECORDS SUMMARY | 2025-07-13 13:44 | XMS_ITS | Encounter Summary ---
Author Organization [facility] Address [address] [place] [address] [place] [address] Phone Care Team Providers Care Accountancy Professor Name Role Phone Cornelia Membreno MD Primary Care Provider + [phone] Cornelia Membreno MD Unavailable [phone] Cornelia Membreno MD Unavailable [phone] Kaitlin Greene OT Unavailable [phone] Encounter Details Date Type Department Care Team (Late st Contact Info) Description 04/15/2022 Procedure Pass [place] Admitting Dept - [facility] Department [address] [place] [address] Social History Tobacco Use Types Packs/Day Years [...] high school, GED, job training, learning the Wallis[place] language, technical skills, or developing parenting skills)? [...] Info) Description 12/05/2024 Procedure Pass Echo Lab [address] [place] [address] 10/29/2025 8:30 AM EST Appointment Echo Lab [address] [place] [address] Cindy Russell, MICHELLE [address] [facility], [address] [place] [address] 11/01/2025 9:10 AM EST Office Visit [facility] [address] [place] [address] [place] [address] Alejo Elam DO [address] [place] [address] 11/16/2025 11:40 AM EST Office Visit [facility] [address] [place] [address] 3rd Floor, [address] [place] [address] Win Zheng MD [address] [place] [address], [address] [address] [email or web address] documented as of this encounter Visit Diagnoses [...] documented as of this encounter Care Teams Accountancy Professor Relationship Specialty Start Date End Date Cornelia Membreno MD [address] [place] [address], [address] [place] [address] PCP - General 08/12/17 Cornelia Membreno MD [address] [place] [address], [address] [place] [address] Insurance Assigned Provider 01/22/18 05/30/23 Cornelia Membreno MD [address] [place] [address], [address] [place] [address] Insurance Assigned Provider 01/28/25 Kaitlin Greene, OT [address] [place] [address] [email or web address] Transitions House DetectiveElectronic Intelligence Officer Therapy 04/23/2504/24/25 documented as of this encounter Additional Source Comments The information contained in this document represents components of the legal health record. It is not the complete legal health record.[facility]
--- OUTSIDE RECORDS SUMMARY | 2025-07-13 13:44 | XMS_ITS | Encounter Summary ---
Author Organization [facility] Address [address] [place] [address] [place] [address] Phone Support Name Relationship Address Phone Amy Campbell Benjiangela Emergency Contact [address] [place] [address] Keysha Cox Emergency Contact [address] [place] [address] Care Team Providers Care Pipe Smoking Machine Offbearer Name Role Phone Cornelia Membreno MD Primary Care Provider [phone] Cornelia Membreno MD Unavailable [phone] Kaitlin Greene OT Unavailable [phone] Encounter Details Date Type Department Care Team (Late st Contact Info) Description 07/14/2024 Procedure Pass [facility] [address] [place] [address] Social History Tobacco Use Types Packs/Day Years [...] Info) Description 12/05/2024 Procedure Pass Echo Lab [address] [place] [address] 10/29/2025 8:30 AM EST Appointment Echo Lab [address] [place] [address] Cindy Russell, [facility] [address] [facility], [address] [place] [address] 11/01/2025 9:10 AM EST Office Visit [facility] [address] [place] [address] Alejo Elam DO 22 [place] [address] 11/16/2025 11:40 AM EST Office Visit [facility] [address] 3rd Floor, [address] [place] [address] Win Zheng MD [address] [place] [address] documented as of this encounter Visit Diagnoses Not on filedocumented in this encounter Additional Health Concerns Infection Onset Date Last Indicated Resolved Time CDiff-Risk 07/17/2024 07/17/2024 07/17/2024 8:54 PM EDT CDiff-Risk 07/27/2024 07/27/2024 07/27/2024 8:21 PM EDT Assessment Noted Time PHQ-2 Depression Total Score: 0 04/17/20 24 2:22 PM EDT documented as of this encounter Care Teams Pipe Smoking Machine Offbearer Relationship Specialty Start Date End Date Cornelia Membreno MD [address] [place] [address], [address] [place] [address] PCP - General 08/12/17 Cornelia Membreno MD [address] [place] [address], [address] [place] [address] Insurance Assigned Provider 01/28/25 Kaitlin Greene, OT [address] [place] [address] Transitions Go Go DancerAuto Service Advisor Therapy 6/30/25 7/ 1/25 documented as of this encounter Additional Source Comments The information contained in this document represents components of the legal health record. It is not the complete legal health record.[facility]
--- OUTSIDE RECORDS SUMMARY | 2025-07-13 13:44 | XMS_ITS | Encounter Summary ---
Author Organization Located Within [facility] Address [address] [place] [address] [place] [address] Phone Care Team Providers Care Regular Senior Care Provider Name Role Phone Cornelia Membreno MD Primary Care Provider [phone] Cornelia Membreno MD Unavailable [phone] Kaitlin Greene OT Unavailable [phone] Encounter Details Date Type Department Care Team (Late st Contact Info) Description 11/29/2024 Procedure Pass [facility] Admitting Dept Virtual Department [address] [place] [address] Social History Tobacco Use Types Packs/Day Years [...] Info) Description 12/05/2024 Procedure Pass [facility] [address] [address] 10/29/2025 8:30 AM EST Appointment Echo [facility] [address] [address] Cindy Russell, MICHELLE [address] [place] [address], [address] [address] 11/01/2025 9:10 AM EST Office Visit [facility] [address] [place] [address] Alejo Elam DO [address] [place] [address] 11/16/2025 11:40 AM EST Office Visit [facility] [address] [place] [address] [address]rd Floor, [address] [address] Win Zheng MD [address] [place] [address] documented as of this encounter Visit Diagnoses Not on filedocumented in this encounter Additional Health Concerns Assessment Noted Time PHQ-2 Depression Total Score: 0 04/17/20 24 2:22 PM EDT documented as of this encounter Care Teams Regular Senior Care Provider Relationship Specialty Start Date End Date Cornelia Membreno MD [address] [place] [address], [address] [place] [address] PCP - General 08/12/17 Cornelia Membreno MD [address] [place] [address], [address] [place] [address] Insurance Assigned Provider 01/28/25 Kaitlin Greene, OT [address] [place] [address] [email or web address] Transitions Back Tender Insulation BoardTraveling Nurse Therapy 04/23/2504/24/25 documented as of this encounter Additional Source Comments The information contained in this document represents components of the legal health record. It is not the complete legal health record.Loc[facility]
--- OUTSIDE RECORDS SUMMARY | 2025-07-13 13:44 | XMS_ITS | Encounter Summary ---
Author Organization [facility] Address [address] [place] [address] Phone Care Team Providers Care Publishing Editor Name Role Phone Cornelia Memrbeno MD Primary Care Provider + [phone] Bakari Henson MD Unavailable [phone] Art Ley MD Unavailable Akira Malik MD Unavailable [phone] Cornelia Membreno MD Unavailable [phone] Cornelia Membreno MD Unavailable [phone] Kaitlin Greene OT Unavailable [phone] Encounter Details Date Type Department Care Team (Late st Contact Info) Description 10/30/2020 Ancillary Orders [facility],Outside Imaging [address] [place] [address] System, Provider Not In, [facility] [address] [address] Social History Tobacco Use Types Packs/Day Years [...] Info) Description 12/05/2024 Procedure Pass [facility] [address] [place] [address] 10/29/2025 8:30 AM EST Appointment [facility] [address] [place] [address] Cindy Russell, MICHELLE [address] [place] [address] 11/01/2025 9:10 AM EST Office Visit [facility] [address] [place] [address] Alejo Elam DO [address] [place] [address] 11/16/2025 11:40 AM EST Office Visit [facility] [address] [place] [address] [address]rd Floor, [address] [address] Win Zheng MD [address] [place] [address] documented as of this encounter Results * [...] documented as of this encounter Care Teams Publishing Editor Relationship Specialty Start Date End Date Cornelia Membreno MD [address] [place] [address], [address] [address] PCP - General 08/12/17 Bakari Henson MD [address] [place] [address] [email or web address] Historical LMR Provider 08/14/17 11/01/21 Art Ley MD [address] [place] [address] [email or web address] Historical LMR Provider 08/14/17 11/01/21 Akira Malik MD [address] [place] [address] Historical LMR Provider 08/14/17 11/01/21 Cornelia Membreno MD [address] [place] [address], [address] [address] Insurance Assigned Provider 01/22/18 05/30/23 Cornelia Membreno MD [address] [facility], [address] [place] [address] [email or web address] Insurance Assigned Provider 01/28/25 Kaitlin Greene, OT [address] [place] [address] [email or web address] Transitions Program Eligibility SpecialistPrenatal Nurse Therapy 04/23/2504/24/25 documented as of this encounter Additional Source Comments The information contained in this document represents components of the legal health record. It is not the complete legal health record.[facility]
--- NOTE | 2025-07-13 13:50 | HO.SPINEOV ---
Intake Visit Reasons: MRI follow up Intake Note: Mr. Casarez is here today to F/u on his MRI Results. Parts Technician Required: No Allergies sulfamethoxazole (From Bactrim) Allergy (Severe, Verified 05/04/25 13:17) Itching trimethoprim (From Bactrim) Allergy (Severe, Verified 05/04/25 13:17) Itching tizanidine Adverse Reaction (Severe, Verified 05/04/25 13:17) Weakness Assessment & Plan Assessment & Plan (1) Osteomyelitis: Comment: He is doing well and tolerating Amoxicillin 500 mg tid,followup antibiotic for enterococcus faecalis infection Code(s): M86.9 - Osteomyelitis, unspecified Category: Medical (2) Spinal stenosis at L4-L5 level: Code(s): M48.061 - Spinal stenosis, lumbar region without neurogenic claudication Category: Medical Plan Dear Dr Rasheed, Dr Fox and I saw Mr Casarez in the office today for follow-up. 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 He was on extensive antibiotics via PICC line for number of months and then ultimately transitioned to amoxicillin. He follows with Infectious Disease here at [facility]. We originally operated on him for right-sided leg pain with a simple decompression. We found at the time of surgery when we positioned him on the table that his spine was unstable and recommended a follow-up fusion surgery if his leg pain returned. Unfortunately the infection complicated the situation and now we have been in limbo about what to do with his right leg pain. His most recent MRI done here at [facility] shows that he has what looks like mostly resolved if not completely resolved infection in the back. However, he is still has 2 weeks more of antibiotics to go. This is very optimistic for him in the sense that the infection looking like it has improved so much gives us the feeling that we may be able to do the lumbar fusion surgery, however we need to be absolutely certain that there is no residual infection after he comes off the antibiotics at this could pose significant risk for surgery because the fusion will require hardware. If the hardware becomes infected some how postoperatively would all need to be removed and it would significantly affect his ability to mobilize any may even need to be on bedrest. Therefore what we are proposing to do is postpone things for a little while longer and see how it goes after he is off the antibiotics. He is meeting with Infectious Disease on July 27 and at that time will be re-evaluated. We would like a new MRI in September lumbar with and without gadolinium. This will give us 3 months off antibiotics to see if there is any signs of recurrence of the infection. We will also get x-rays as well as a baseline WBC, ESR and CRP to make sure there is no residual sign of an infection anywhere lingering around. If these things are all showing us that he is clear of the infection in September we will book him for an L4-5 oblique lumbar interbody fusion in October. Dr. Fox was in an discussed all this with him as well. In the interim however, he is in terrible daily pain shooting down his right leg. He has struggled to get good pain management but has been very thankful that you have been writing him prescriptions. He was asking today about going up on the dose of his meloxicam and gabapentin in maybe even the tramadol. We certainly feel like he has reasons to have all the pain pain given what is been going on for the last 5 months. I told him I would send you a note detailing what is been going on in terms of current status on your surgical plan and letting you know how much pain he has been in, but did tell him it would be your decision about whether or not you wanted to go up on these medications. The gabapentin seems to be really helping the most it seems. Thank you for allowing us to care for your patient. Total amount of time spent in this visit was 20 minutes in discussion of symptoms, lumbar MRI imaging results and subsequent plan of care Sunil Fox MD,PhD [facility] Coding Level of Care Code Est Pt Level 3 ([address]) Diagnoses Osteomyelitis M86.9 Spinal stenosis at L4-L5 level M48.061
== END 2025-07-13 14:23 | disposition home or self-care (01) ==
LOC: HO.HNS 13:29
PROVIDERS: PCP Family Medicine; Visit Provider Physician Assistant
DX: M86.9 Osteomyelitis, unspecified (principal); M48.061 Spinal stenosis, lumbar region without neurogenic claudication
CPT/HCPCS: 99213

== ENCOUNTER → 2025-07-13 13:28 | Outpatient (BNVA) | payer MEDICARE, SELFPAY | PROVIDERS: PCP Family Medicine; Visit Provider Physician Assistant | DX: M48.061 Spinal stenosis, lumbar region without neurogenic claudication (principal); M86.9 Osteomyelitis, unspecified; Z98.890 Other specified postprocedural states; Z79.2 Long term (current) use of antibiotics; B95.2 Enterococcus as the cause of diseases classified elsewhere | CPT/HCPCS: 99212 ==

== ENCOUNTER 2025-07-27 10:08 | Outpatient (AMB) | payer MEDICARE, SELFPAY ==
--- OUTSIDE RECORDS SUMMARY | 2025-07-25 15:25 | XMS_ITS | Encounter Summary ---
Author Organization [facility] Address [address] [place] [id number] Phone Support Name Relationship Address Phone Amy Varela Emergency Contact [address] [place] [address] Keysha Cox Emergency Contact [address] [place] [address] Care Team Providers Care Global Project Manager Name Role Phone Cornelia Membreno MD Primary Care Provider [phone] Cornelia Membreno MD Unavailable [phone] Reason for Visit * Reason Comments Abnormal Lab * Auth/Cert (Routine) Specialty Diagnoses / Procedures Referred By Lex lloyd Referred To Contact Diagnoses Hyponatremia Edema, unspecified type Referral ID Status Reason Start Date Expiration Date Visits Re quested Visits Authorized [id number] 1 1 Encounter Details Date Type Department Care Team (Late st Contact Info) Description 07/25/2025 3:25 PM EDT - Present Hospital Encounter [facility] [address] [place] [address] Isaiah Burr MD [address] [place] [id number] [place] [address] Myra Campbell MD [address] [place] [id number] Social History Tobacco Use Types Packs/Day Years [...] got money to buy more. Never True 07/18/2025 Within the past 6 months the food we bought just didn't last and we didn't have enough money to get more. Never True Residential Stability Answer Date Recor ded What is your housing situation today? I have nicole sing 07/18/2025 How many times have you move d in the past 12 months? Zero (I did not move) 07/18/2025 Paying for Meds Answer Date Recorded Do you have trouble paying for medicines? No 07/18/2025 Paying Utility Bills Answer Date Record ed Do you have trouble paying your heating or elect ricity bill? No 07/18/2025 Transportation Answer Date Recorded Has the lack of transportati on kept you from medical appointments or from getting medications? No 07/18/2025 Unemployment Answer Date Recorded Are you currently unemployed or working on a part-time or temporary basis, and looking for work? No 03/26/2021 Digital Access Answer Date Recorded No 07/18/2025 Yes 07/18/2025 Do you have reliable internet access at home? Ye s 07/18/2025 Do you have a device (e.g., phone, tablet, computer) with a working camera? Yes 07/18/2025 Intimate Partner Violence Answer Date R ecorded Are you denied basic needs s uch as food, clothing, or medical care? No 07/25/2025 In the past 12 months have y ou been in a relationship with a person who hurts, threatens, or tries to control you? No 07/25/2025 Are you denied basic needs s uch as food, clothing, or medical care? No 07/25/2025 In the past 12 months have y ou been in a relationship with a person who hurts, threatens, or tries to control you? No 07/25/2025 Sex and Gender Information Value Date Recorded [...] Sign Reading Time Taken Comments Blood Pressure 127/70 07/27/2025 7:59 AM EDT Pulse 78 07/27/2025 7:59 AM EDT Temperature 36.7 C (98 F) 07/26/2025 9:48 PM EDT Respiratory Rate 18 07/27/2025 7:59 AM EDT Oxygen Saturation 100% 07/27/2025 7:59 AM EDT Inhaled Oxygen Concentration - - Weight 101 kg (222 lb 9.6 oz) 07/26/2025 7:00 AM EDT Height 170.2 cm (5' 7 ) 07/25/2025 3:11 PM EDT Body Mass Index 34.86 07/25/2025 3:11 PM EDT documented in this encounter Functional Status * Calculated C-SSRS Risk Score (Lifetime/Recent) Answer Date of Assessment Author No Risk Indicated 07/25/2025 3:12 PM EDT Rachell Carlson RN * [place] Suicide Severity Rating Scale (Screener/Recent Self-Report) Question Answer Date of Assessment Author 1. Wish to be (Past 1 Month) No 025 3:12 PM EDT Rachell Carlson RN 2. Non-Specific Active Suici divina Thoughts (Past 1 Month) No 07/25/2025 3:12 PM EDT Rachell Carlson RN 6. Suicidal Behavior (Lifetime) No 3:12 PM EDT Rachell Carlson RN documented as of this encounter Progress Notes Only the most recent of 4 notes is shown. * Acan Kandemir, Sveta, RN - 07/27/2025 7:00 AM EDT Nursing Progress Not Pt is A&Ox3 and forgetful. Verbally aggressive and anxious. Reported pain as 10/10 on back and R-knee. Hot packs offered. PRN Tramadol and Tylenol given with positive effect. Independent for OOB to BR. Purposeful rounding in place. documented in this encounter H&P Notes * Summer Hennessy DO - 07/25/2025 7:33 PM EDT Hospital Medicine Admission History & Physical ? Patient: Jt Casarez : 1950 PCP: Cornelia Membreno MD Date of Admission: 07/25/2025 Chief Complaint/Reason for Admission: Chief Complaint Patient presents with Abnormal Lab History of Present Illness: 75-year-old man with CAD, history of CABG, history of aortic valve replacement, history of pacemaker, diabetes, hypertension, hyperlipidemia, hypothyroidism, BPH, asthma, spinal surgery in January followed by osteomyelitis and long-term antibiotics, presented to the ED with hyponatremia. Patient has had a medically complicated year and had spinal surgery in January and shortly after developed osteomyelitis requiring long-term antibiotics. He needs further surgery and is waiting for clearance. He was seen by his PCP on 07/18 and outpatient labs were performed showing hyponatremia. Patient was sent to the ED however had to leave AMA for dentist appointment. He returns today for further follow-up for hyponatremia. On 07/18 sodium was 118 and today it is 119. He has remained asymptomatic. He will be placed in observation for further evaluation and treatment. Medical History: Past Medical History: Diagnosis Date Adverse effect [...] Steatohepatitis, alcoholic 2012 UTI (urinary tract infection) Past Surgical History: Procedure Laterality Date AORTIC VALVE REPLACEMENT 2018 [facility] COLONOSCOPY Colonoscopy - tiny polyp - Dr. Couch COLONOSCOPY N/A 11/29/2024 Performed by Braxton Catherine MD at [facility] ENDOSCOPY COLONOSCOPY N/A 09/10/2021 Performed by Braxton Catherine MD at [facility] ENDOSCOPY CORONARY ARTERY BYPASS GRAFT 2 vessel. [facility] 2019 OPEN REDUCTION INTERNAL FIXATION FRACTURE METATARSAL Right 04/15/2022 Performed by Dakota Bhatt MD at [facility] OR TONSILLECTOMY AND ADENOIDECTOMY TOTAL HIP ARTHROPLASTY Right 2017 Family History: Family History Problem Relation Age of Onset Other Mother C. difficile Heart disease Father Rectal cancer Sister Social History: Social History Socioeconomic History Marital status: Single Spouse name: Not on file Number of children: Not on file Years of education: Not on file Highest education level: Not on file Occupational History Occupation: [email or web address] Tobacco Use Smoking status: Never Passive exposure: [...] Narrative Lives alone. 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 He ambulates without assistivedevices. HCP: Keysha Bates, daughter He is a FULL CODE Social Drivers of Health Residential Stability: Low Risk (07/18/2025) Residential Stability Family situation today data: I have housing Number of times moved in last year: Zero (I did not move) Allergies: Allergies Allergen Reactions Bactrim [Sulfamethoxazole-Trimethoprim] Rash Medications: Prior to Admission medications Medication Sig ADMELOG U-100 INSULIN LISPRO 100 unit/mL injection vial 5-15 units 3 times a day with meals albuterol 90 mcg/actuation inhaler 2 puffs, Inhalation, Every 6 hours PRN amoxicillin (AMOXIL) 500 MG capsule 500 mg, Daily ascorbic acid, vitamin C, (VITAMIN C) 500 MG tablet 1,000 mg, Daily aspirin 81 mg chewable tablet 81 mg, Oral, Daily atorvastatin (LIPITOR) 80 MG tablet 80 mg, Oral, Daily Patient taking differently: Take 80 mg by mouth nightly at bedtime. BD INSULIN SYRINGE ULTRA-FINE 0.5 mL 31 gauge x 5/16 Syrg 1 each, Miscellaneous, 3 times daily before meals cholecalciferol (VITAMIN D3) 25 MCG (1,000 unit) tablet 1,000 Units, Daily CHROMIUM ORAL 1,000 mg, Daily docusate (COLACE) 100 mg tablet 100 mg, 2 times daily ferrous sulfate 324 mg (65 mg redding iron) TbEC 324 mg, Daily with breakfast folic acid (FOLVITE) 1 MG tablet 1 mg, Daily gabapentin (NEURONTIN) 300 MG capsule 900 mg, Oral, 3 times daily insulin pen needles, disposable, 31 gauge x 3/16 Ndle 1 each, Miscellaneous, 4 times daily before meals and nightly levothyroxine (SYNTHROID, LEVOTHROID) 50 MCG tablet 50 mcg, Oral, Every morning losartan (COZAAR) 100 MG tablet 100 mg, Daily magnesium oxide (MAG-OX) 400 mg (241.3 mg elemental) tablet 400 mg, Daily meloxicam (MOBIC) 15 MG tablet 15 mg, Oral, Daily metFORMIN (GLUCOPHAGE) 1000 MG tablet 1,000 mg, Oral, 2 times daily with meals methenamine (HIPREX) 1 gram tablet 1 g, 2 times daily with meals omega 7-acj-zhk-fish oil 1,000 mg (120 mg-180 mg) Cap 1 capsule, Daily potassium chloride (KLOR-CON) 10 MEQ ER tablet Take 1 tablet by mouth once daily simethicone (MYLICON) 80 mg chewable tablet 160 mg, Every 6 hours PRN tamsulosin (FLOMAX) 0.4 mg Cap 0.4 mg, Daily therapeutic multivitamin tablet 1 tablet, Daily thiamine (VITAMIN B-1) 100 MG tablet 100 mg, Daily traMADoL (ULTRAM) 50 mg tablet 50 mg, Oral, 2 times daily PRN, Do not drive when on this medicationdue to risk of sedation TRESIBA FLEXTOUCH U-100 injection pen 24 Units, Subcutaneous, Daily vit A/vit C/vit E/zinc/copper (PRESERVISION AREDS ORAL) 1 capsule, 2 times daily Review of Systems: Review of Systems Constitutional: Negative for activity change, appetite change, chills and fever. Respiratory: Negative for shortness of breath. Cardiovascular: Negative for chest pain, palpitations and leg swelling. Gastrointestinal: Negative for abdominal pain, diarrhea, nausea and vomiting. Neurological: Negative for weakness. All others reviewed and negative. Physical Exam: Last vitals 36.8 ??C (98.2 ??F) P 94 BP (!) 158/82 RR 16 SpO2 97 % FiO2 101.6 kg (224 lb) Physical Exam Vitals reviewed. Constitutional: General: He is not in acute distress. Appearance: He is not ill-appearing. HENT: Head: Normocephalic and atraumatic. Mouth/Throat: Mouth: Mucous membranes are moist. Eyes: Pupils: Pupils are equal, round, and reactive to light. Cardiovascular: Rate and Rhythm: Normal rate and regular rhythm. Pulses: Normal pulses. Heart sounds: Normal heart sounds. Pulmonary: Effort: Pulmonary effort is normal. No respiratory distress. Breath sounds: Normal breath sounds. Abdominal: General: Bowel sounds are normal. There is no distension. Palpations: Abdomen is soft. Tenderness: There is no abdominal tenderness. Musculoskeletal: General: No swelling. Normal range of motion. Cervical back: Normal range of motion and neck supple. Skin: General: Skin is warm and dry. Neurological: Mental Status: He is alert and oriented to person, place, and time. Psychiatric: Mood and Affect: Mood normal. Labs: Data/Results: CBC: 6.72 \ 8.9* / 200 / 26.0* \ 07/25 1539 BMP: 120* 85* 19 / 149* 4.9 25 1.00 \ 07/25 1946 Coagulation: Lab Results Component Value Date/Time PT 12.9 07/25/20251538 PTINR 1.0 07/25/20251538 LFTs: Lab Results Component Value Date/Time ALB 4.4 07/25/20251538 ALKP 95 07/25/20251538 TP 7.1 07/25/20251538 SGPT 16 07/25/20251538 SGOT 37 07/25/20251538 DBILI 0.8 (H) 07/25/20251538 TBILI 3.6 (H) 07/25/2025 1539 Diagnostics: EKG and or monitor strips have been reviewed and are significant for paced rhythm Imaging Results: Radiology reviewed and significant for: Left upper extremity ultrasound negative for DVT Please see radiology results for full report Assessment & Plan: 75-year-old man with CAD, diabetes, hypertension, hyperlipidemia, hypothyroidism, BPH, asthma, spinal surgery in January followed by osteomyelitis and long-term antibiotics, presented to the ED with hyponatremia Assessment & Plan Hyponatremia -Patient's sodium is trending in the right direction, 119, 120, he remains asymptomatic -Follow up serum osm, urine osm, urine Na, TSH -Follow up nephro consult Essential hypertension -BP mildly elevated, continue losartan Type 2 diabetes mellitus with hyperglycemia, with long-term current use of insulin -Continue basal insulin -Monitor point of care, cover with insulin sliding scale as needed -Recent hemoglobin A1c 6.3 Atherosclerosis of [place] coronary artery of [place] heart without angina pectoris -Continue ASA, statin Anemia -Chronic, slightly below baseline Osteomyelitis -He is currently completing a long course of antibiotics and is on daily amoxicillin. He has follow-up with ID, Dr. Patel, on 07/27 -Continue amoxicillin Arm swelling -Patient with left arm swelling after he was lifting pumpkins on his forearm and heard a snap -Ultrasound is negative for DVT -Likely partial biceps tear as there is tenderness over the biceps Diet: Diet Regular; Total carbohydrates: Consistent carbohydrate; Fat Restriction: Low fat (cardiac); Sodium Restriction: 2 GM NA DVT Prophylaxis: SQ LMW Heparin Code Status: Full Code I personally spent a total of 75 minutes on the date of this encounter, including face to face timeand non-face time. This includes time spent on work such as documentation, chart review and care coordination. I have placed the patient in OBSERVATION STATUS for further monitoring of: Quality Clinical Documentation: Hyponatremia (Present on Admission) . Evaluating . Sodium of 119 on 07/25/2025 Hypochloremia (Present on Admission) . Monitoring . Chloride of 84 on 07/25/2025 Anemia due to chronic disease . Monitoring Clinical Obesity (Present on Admission) . Monitoring Signed: Summer Hennessy DO July 25, 2025 9:24 PM documented in this encounter Consult Notes * Rocky Rosario MD - 07/26/2025 8:41 AM EDTAssociated Order(s): IP CONSULT TO NEPHROLOGY [facility] Consult Note Patient: Jt Casarez Admit Date: 07/25/2025 Date of Consult: 07/26/2025 Reason for Consult: Hyponatremia evaluation HPI: 75 y.o. male with a history of hypertension hyperlipidemia hypothyroidism BPH asthma CAD CABG in the past aortic valve replacement pacemaker placement type 2 diabetes mellitus who has a history of spinal surgery back in January of develop osteomyelitis requiring long-term antibiotics, recently seen by PCP was noted to have hyponatremia sent to emergency room left AMA for dentist appointment hecame back for evaluation sodium levels noted to be 118-119 on admission this morning 122 hence the renal consultation. ROS: Was reviewed in 12 points and is otherwise negative except as noted in the HPI. Past Medical History: Diagnosis Date Adverse effect [...] Steatohepatitis, alcoholic 2012 UTI (urinary tract infection) Patient Active Problem List Diagnosis Actinic keratosis [...] of insulin Dyspnea on exertion Atherosclerosis of [place] coronary artery of [place] heart without angina pectoris Hyperlipidemia LDL goal [...] dysfunction AV node dysfunction Syncope and collapse Obesity, morbid Hypo-osmolality and hyponatremia Hyponatremia Osteomyelitis Arm swelling Family History Problem Relation Age of Onset Other Mother C. difficile Heart disease Father Rectal cancer Sister Social History Socioeconomic History Marital status: Single Spouse name: Not on file Number of children: Not on file Years of education: Not on file Highest education level: Not on file Occupational History Occupation: [employer] Tobacco Use Smoking status: Never Passive exposure: [...] Narrative Lives alone. 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 He ambulates without assistivedevices. HCP: Keysha Bates, daughter He is a FULL CODE Social Drivers of Health Residential Stability: Low Risk (07/18/2025) Residential Stability Family situation today data: I have housing Number of times moved in last year: Zero (I did not move) Allergies Allergen Reactions Bactrim [Sulfamethoxazole-Trimethoprim] Rash Facility-Administered Medications as of 07/26/2025 Medication Dose Route Frequency acetaminophen (TYLENOL) tablet 650 mg 650 mg Oral Q6H PRN Or acetaminophen (TYLENOL) 160 mg/5 mL (5 mL) oral suspension 650 mg 650 mg Oral Q6H PRN Or acetaminophen (TYLENOL) suppository 650 mg 650 mg Rectal Q6H PRN albuterol 90 mcg/actuation inhaler 2 puff 2 puff Inhalation Q6H PRN amoxicillin (AMOXIL) capsule 500 mg 500 mg Oral Daily ascorbic acid (vitamin C) (VITAMIN C) tablet 1,000 mg 1,000 mg Oral Daily aspirin chewable tablet 81 mg 81 mg Oral Daily atorvastatin (LIPITOR) tablet 80 mg 80 mg Oral Nightly cholecalciferol (VITAMIN D3) tablet 1,000 Units 1,000 Units Oral Daily D10W bolus 125-250 mL 125-250 mL Intravenous PRN enoxaparin (LOVENOX) subcutaneous syringe 40 mg 40 mg Subcutaneous Q24H ferrous sulfate 325 mg (65 mg redding iron) tablet 325 mg 325 mg Oral Daily With Breakfast folic acid (FOLVITE) tablet 1 mg 1 mg Oral Daily [COMPLETED] gabapentin (NEURONTIN) capsule 900 mg 900 mg Oral Once gabapentin (NEURONTIN) capsule 900 mg 900 mg Oral TID insulin glargine (LANTUS) subcutaneous injection 24 Units 24 Units Subcutaneous Nightly insulin lispro (ADMELOG, HumaLOG) subcutaneous injection 0-12 Units 0-12 Units Subcutaneous With Meals and HS insulin levothyroxine (SYNTHROID, LEVOTHROID) tablet 50 mcg 50 mcg Oral QAM losartan (COZAAR) tablet 100 mg 100 mg Oral Daily melatonin tablet 5 mg 5 mg Oral Nightly PRN meloxicam (MOBIC) tablet 15 mg 15 mg Oral Daily methenamine (HIPREX) tablet 1 g 1 g Oral BID With Meals multivitamin (MVI) oral 1 each 1 each Oral Daily ondansetron (ZOFRAN-ODT) disintegrating tablet 4 mg 4 mg Oral Q8H PRN Or ondansetron (PF) (ZOFRAN) injection 4 mg 4 mg Intravenous Q8H PRN polyethylene glycol packet 17 g Oral Daily PRN sodium chloride (NS) 0.9 % syringe flush 3 mL 3 mL Intravenous PRN sodium chloride (NS) 0.9 % syringe flush 3 mL 3 mL Intravenous PRN tamsulosin (FLOMAX) 24 hr capsule 0.4 mg 0.4 mg Oral Nightly thiamine (Vitamin B-1) tablet 100 mg 100 mg Oral Daily traMADoL (ULTRAM) tablet 50 mg 50 mg Oral Q6H PRN vit C,H-sfqhcw-hezipozqxp-minerals (PRESERVISION AREDS-2) capsule 1 capsule 1 capsule Oral BID Outpatient Medications as of 07/26/2025 Medication ADMELOG U-100 INSULIN LISPRO 100 unit/mL injection vial albuterol 90 mcg/actuation inhaler amoxicillin (AMOXIL) 500 MG capsule ascorbic acid, vitamin C, (VITAMIN C) 500 MG tablet aspirin 81 mg chewable tablet atorvastatin (LIPITOR) 80 MG tablet BD INSULIN SYRINGE ULTRA-FINE 0.5 mL 31 gauge x 5/16 Syrg cholecalciferol (VITAMIN D3) 25 MCG (1,000 unit) tablet CHROMIUM ORAL docusate (COLACE) 100 mg tablet ferrous sulfate 324 mg (65 mg redding iron) TbEC folic acid (FOLVITE) 1 MG tablet gabapentin (NEURONTIN) 300 MG capsule insulin pen needles, disposable, 31 gauge x /16 Ndle levothyroxine (SYNTHROID, LEVOTHROID) 50 MCG tablet losartan (COZAAR) 100 MG tablet magnesium oxide (MAG-OX) 400 mg (241.3 mg elemental) tablet meloxicam (MOBIC) 15 MG tablet metFORMIN (GLUCOPHAGE) 1000 MG tablet methenamine (HIPREX) 1 gram tablet omega 6-rpd-zef-fish oil 1,000 mg (120 mg-180 mg) Cap potassium chloride (KLOR-CON) 10 MEQ ER tablet simethicone (MYLICON) 80 mg chewable tablet tamsulosin (FLOMAX) 0.4 mg Cap therapeutic multivitamin tablet thiamine (VITAMIN B-1) 100 MG tablet traMADoL (ULTRAM) 50 mg tablet TRESIBA FLEXTOUCH U-100 injection pen vit A/vit C/vit E/zinc/copper (PRESERVISION AREDS ORAL) Physical Exam: Temperature: [36.2 ??C (97.2 ??F)-36.8 ??C (98.2 ??F)] 36.8 ??C (98.2 ??F) Heart Rate: [94-100] 94 Respiratory Rate: [16-19] 16 BP: (131-164)/(73-98) 131/73 Wt Readings from Last 3 Encounters: 07/26/25 101 kg (222 lb 9.6 oz) 07/18/25 101.6 kg (224 lb) 07/17/25 102.8 kg (226 lb 9.6 oz) No intake/output data recorded. No intake/output data recorded. Gen: NAD, non-toxic appearing, awake, alert, conversant HEENT: MMM, OP clear without lesions or exudate. Eyes: Anicteric, conjunctivae clear Neck: Supple, CV: Regular rhythm, S1 S2, no m/r/g Chest: CTAB, no increased WOB Abd: Soft, non-tender, non-distended. Unable to appreciate liver edge. No rebound or guarding. Ext: WWP, no c/c/e Skin: No rashes noted on observed skin Neuro: Alert . Bilateral UE/LE grossly intact motor/sensory, moving all extremities Laboratory: Results from last 7 days Lab Units 07/26/25 0526 07/25/25 1946 07/25/25 1539 SODIUM mmol/L 122* 120* 119* POTASSIUM mmol/L 4.9 4.9 4.9 CHLORIDE mmol/L 88* 85* 84* CARBON DIOXIDE mmol/L 23 25 24 BUN mg/dL 22* 19 19 CREATININE mg/dL 0.90 1.00 1.00 CALCIUM mg/dL 9.0 9.7 9.3 GLUCOSE mg/dL 69* 149* 152* ALBUMIN g/dL -- -- 4.4 GFR (ESTIMATED) mL/min/1.73m2 90 79 79 PHOSPHORUS mg/dL 4.3 -- -- Results from last 7 days Lab Units 07/26/25 0526 07/25/25 1539 WBC K/uL 5.89 6.72 HGB g/dL 8.7* 8.9* HCT % 25.5* 26.0* PLT K/uL 189 200 Lab Results Component Value Date ANGELIA 38 07/25/2025 UCRE 104 10/27/2024 UOSM 267 07/25/2025 Lab Results Component Value Date UACOLOR Yellow 07/25/2025 UATURB Clear 07/25/2025 UAGLUC Negative 07/25/2025 UABILI Negative 07/25/2025 UAKET Negative 07/25/2025 UASPGR 1.010 07/25/2025 UABLD Negative 07/25/2025 UAPH 7.0 07/25/2025 UAUROBI 0.2-1 08/07/2021 UANIT Negative 07/25/2025 UASWBC 0-4 (*) 07/25/2025 UASRBC 0-2 (*) 07/25/2025 UASBACT NONE SEEN 07/25/2025 Chemistries Lab Results Component Value Date NA 122 (L) 07/26/2025 K 4.9 07/26/2025 K 4.9 07/25/2025 K 4.9 07/25/2025 CL 88 (L) 07/26/2025 CO2 23 07/26/2025 ALB 4.4 07/25/2025 ALB 4.4 07/18/2025 ALB 3.9 07/18/2025 CBC: Lab Results Component Value Date WBC 5.89 07/26/2025 HGB 8.7 (L) 07/26/2025 HGB 8.9 (L) 07/25/2025 HGB 10.2 (L) 07/18/2025 PLT 189 07/26/2025 Anemia eval: Lab Results Component Value Date TIBC 357 04/14/2023 JOSE 70 05/11/2025 FE 113 05/11/2025 B12 679 05/11/2025 FOLATE >20.0 (H) 05/11/2025 Renal Function Lab Results Component Value Date BUN 22 (H) 07/26/2025 BUN 19 07/25/2025 BUN 19 07/25/2025 CRE 0.90 07/26/2025 CRE 1.00 07/25/2025 CRE 1.00 07/25/2025 GFR 90 07/26/2025 GFR 79 07/25/2025 GFR 79 07/25/2025 Lab Results Component Value Date GRMALB 3.6 (H) 10/27/2024 GRMALB 5.1 (H) 09/22/2023 GRMALB 4.7 (H) 06/25/2022 UCRE 104 10/27/2024 UCRE 83 09/22/2023 UCRE 59 06/25/2022 MALBCRE 34.6 (H) 10/27/2024 MALBCRE 61.4 (H) 09/22/2023 MALBCRE 79.7 (H) 06/25/2022 Lab Results Component Value Date UCRE 104 10/27/2024 UCRE 83 09/22/2023 UCRE 59 06/25/2022 Renal osteo eval: Lab Results Component Value Date CA 9.0 07/26/2025 CA 9.7 07/25/2025 CA 9.3 07/25/2025 PHOS 4.3 07/26/2025 PHOS 4.3 07/18/2025 PHOS 3.3 07/13/2019 PTH 19 04/24/2024 VITDT 59 04/24/2024 UA: Lab Results Component Value Date UAGLUC Negative 07/25/2025 UASPGR 1.010 07/25/2025 UABLD Negative 07/25/2025 UAPH 7.0 07/25/2025 UANIT Negative 07/25/2025 UASWBC 0-4 (*) 07/25/2025 UASRBC 0-2 (*) 07/25/2025 UASBACT NONE SEEN 07/25/2025 Serologies: Lab Results Component Value Date GHBA1C 6.2 (H) 04/11/2025 GHBA1C 5.9 (H) 01/10/2025 GHBA1C 5.8 10/27/2024 Lab Results Component Value Date TP 7.1 07/25/2025 IGG 997 07/18/2025 IGA 223 07/18/2025 IGM 44 07/18/2025 AGEP SEE NOTE 04/14/2023 AGEP Test component not applicable or not reported. 04/14/2023 AGEP Test component not applicable or not reported. 04/14/2023 No results found for: HBSAG , HBSAB , HBSABT , HCVAB No results found for: C3 , C4 , LEYDI , RHF LFTs: Lab Results Component Value Date SGOT 37 07/25/2025 SGPT 16 07/25/2025 TBILI 3.6 (H) 07/25/2025 DBILI 0.8 (H) 07/25/2025 ALKP 95 07/25/2025 Coags: No results found for: INR , PTT Lipids: Lab Results Component Value Date CHOL 122 10/27/2024 HDL 70 10/27/2024 LDL 39 (L) 10/27/2024 TRIG 66 10/27/2024 Assessment:: 75 y.o. male with a history of hypertension hyperlipidemia hypothyroidism BPH asthma CAD CABG in the past aortic valve replacement pacemaker placement type 2 diabetes mellitus who has a history of spinal surgery back in January of develop osteomyelitis requiring long-term antibiotics, recently seen by PCP was noted to have hyponatremia sent to emergency room left AMA for dentist appointment he came back for evaluation sodium levels noted to be 118- 119 on admission this morning 122 hence the renal consultation. Hyponatremia I suspect hyposmotic hyponatremia as a result of a combination of perfusion dependent mechanisms ofADH release initially likely as a result of early decreased intravascular volume combined with perfusion independent mechanisms of ADH release leading to SIADH in the setting of persistent pain, poororal intake resulting in poor osmole intake limiting ability to excrete water appropriately. Fortunately there is no evidence of other disorders such as thyroid or adrenal gland at the present time no concerns for renal sodium wasting or cerebral salt wasting, and NSAIDs can be further compromisingability to excrete water via prostaglandin patient. Plan: -Initiate urea 15 g p.o.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 SPECIFIC GRAVITY 1.010 1.005 - 1.030 BLOOD Negative Negative PH 7.0 5.0 - 8.0 Protein-UA Negative Negative NITRITE Negative Negative Leukocyte esterase, ur Trace(A) Negative Urine (Urine) 07/25/2025 3:3 7 PM EDT 07/25/2025 3:56 PM EDT Kamryn Guerra PA-C URINE ORDERABLES Eveline gaviota Result [address] [place] [address] documented in this encounter Visit Diagnoses Diagnosis Hyponatremia- Primary Hyposmolality and/or hyponatremia Edema, unspecified type Hyponatremia Hyposmolality and/or hyponatremia Essential hypertension Unspecified essential hypertension Type 2 diabetes mellitus with hyperglycemia, with long-term current use of insulin Atherosclerosis of [place] coronary artery of [place] heart without angina pectoris Anemia Unspecified anemia Osteomyelitis Unspecified osteomyelitis, site unspecified Arm swelling Swelling of limb documented in this encounter Admitting Diagnoses Diagnosis Hyponatremia Hyposmolality and/or hyponatremia documented in this encounter Administered Medications Active Administered Medications - up to 3 most recent administrations Medication Order MAR Action Action Date Dose Rate Site acetaminophen (TYLENOL) 160 mg/5 mL (5 mL) oral suspension 650 mg 650 mg, Oral, Every 6 hours PRN, mild pain or 1-3 (on a general 0-10 scale), fever, Starting on Wed07/25/25 at 210, If unable to tolerate tablet. Patient may opt to receive a pain med that is ordered for a lower level of pain. Shake Well acetaminophen (TYLENOL) suppository 650 mg 650 mg, Rectal, Every 6 hours PRN, mild pain or 1-3 (on a general 0-10 scale), fever, Starting on Wed07/25/25 at 210, If unable to tolerate PO. Patient may opt to receive a pain med that is ordered for a lower level of pain. acetaminophen (TYLENOL) tablet 650 mg 650 mg, Oral, Every 6 hours PRN, mild pain or 1-3 (on a general 0-10 scale), fever, Starting on Wed07/25/25 at 2109, Patient may opt to receive a pain med that is ordered for a lower level of pain. Given 07/27/2025 6:04 AM EDT 650 mg Given 07/26/2025 12:45 PM EDT 650 mg Given 07/26/2025 4:00 AM EDT 650 mg amoxicillin (AMOXIL) capsule 500 mg 500 mg, Oral, Daily, First dose on Vee 07/26/25 at 0900, Indication: Prophylaxis, at risk for:, Infection Source: Bone & Joint Infection Given 07/27/2025 8:31 AM EDT 500 mg Given 07/26/2025 8:22 AM EDT 500 mg ascorbic acid (vitamin C) (VITAMIN C) tablet 1,000 mg 1,000 mg, Oral, Daily, First dose on Wed07/26/25 at 0900 Given 07/27/2025 8:31 AM EDT 1,000 mg Given 07/26/2025 8:22 AM EDT 1,000 mg aspirin chewable tablet 81 mg 81 mg, Oral, Daily, First dose on Wed07/26/25 at 0900, Administer with full glass of water, food, or milk to decrease GI upset. Given 07/27/2025 8:31 AM EDT 81 mg Given 07/26/2025 8:22 AM EDT 81 mg atorvastatin (LIPITOR) tablet 80 mg 80 mg, Oral, Nightly, First dose on Wed07/25/25 at 2200 Given 07/26/2025 8:59 PM EDT 80 mg Given 07/25/2025 10:46 PM EDT 80 mg cholecalciferol (VITAMIN D3) tablet 1,000 Units 1,000 Units, Oral, Daily, First dose on Wed07/26/25 at 0900, 25 mcg = 1000 units Given 07/27/2025 8:31 AM EDT 1,000 Units Given 07/26/2025 8:22 AM EDT 1,000 Units enoxaparin (LOVENOX) subcutaneous syringe 40 mg 40 mg, Subcutaneous, Every 24 hours, First dose on Wed07/25/25 at 2200, Administer subcutaneously. Rotate injection sites. Given 07/26/2025 9:00 PM EDT 40 mg Left Lower Abdomen Given 07/25/2025 10:38 PM EDT 40 mg L eft Upper Abdomen ferrous sulfate 325 mg (65 mg redding iron) tablet 325 mg 325 mg, Oral, Daily with breakfast, First dose on Wed07/26/25 at 0800 Given 07/27/2025 8:31 AM EDT 325 mg Given 07/26/2025 8:22 AM EDT 325 mg folic acid (FOLVITE) tablet 1 mg 1 mg, Oral, Daily, First dose on Wed07/26/25 at 0900 Given 07/27/2025 8:31 AM EDT 1 mg Given 07/26/2025 8:22 AM EDT 1 mg gabapentin (NEURONTIN) capsule 900 mg 900 mg, Oral, 3 times daily, First dose on Wed07/26/25 at 0900 Given 07/27/2025 8:30 AM EDT 900 mg Given 07/26/2025 8:59 PM EDT 900 mg Given 07/26/2025 2:20 PM EDT 900 mg insulin glargine (LANTUS) subcutaneous injection 24 Units 24 Units, Subcutaneous, Nightly insulin, First dose on Wed07/25/25 at 2200, If NPO, nutrition held or to be held within the next 6 hours: Give 12 units If tube feeds/TPN are off and insulin given within last 6 hours, check glucose and page RC. Given 07/26/2025 9:21 PM EDT 24 Units Right Arm Given 07/25/2025 10:38 PM EDT 24 Units R ight Lower Abdomen insulin lispro (ADMELOG, HumaLOG) subcutaneous injection 0-12 Units 0-12 Units, Subcutaneous, 4 times daily with meals and nightly insulin, First dose on Wed07/25/25 at 2200, CORRECTIONAL INSULIN: Give even if patient is NPO/not receiving nutrition. Moderate dose Blood glucose (mg/dL): Insulin dose Glucose 70-150: 0 unit. Glucose 151-200: 2 units. Glucose 201-250: 4 units. Glucose 251-300: 6 units. Glucose 301-350: 8 units. Glucose 351-400: 10 units. Glucose >400: 12 units and call RC. For blood glucose < 70 mg/dL call RC AND if patient: 1. Able to take PO, give 15 g of carbohydrate (4 oz fruit juice, regular soda, 8 oz of skim milk, or 3 to 4 glucose tablets) 2. Unable to take PO and PIV PRESENT, administer D50W per prn medication order OR 3. Unable to take PO and NO PIV, call RC/ROLL EXAMINER to obtain order for glucagon Check blood glucose in 15 minutes and repeat if < 80 mg/dL and call RCC, Insulin type: Correctional insulin Given 07/25/2025 10:38 PM EDT 2 Units Left Lower Abdomen levothyroxine (SYNTHROID, LEVOTHROID) tablet 50 mcg 50 mcg, Oral, Every morning, First dose on Vee 07/26/25 at 0600, Administer on an empty stomach at least 30 minutes before food. Hold enteral nutrition at least 1 hour before and 2 hours after dose. Given 07/27/2025 5:39 AM EDT 50 mcg Given 07/26/2025 5:35 AM EDT 50 mcg losartan (COZAAR) tablet 100 mg 100 mg, Oral, Daily, First dose on Vee 07/26/25 at 0900, Hold Parameters: Systolic BP LESS than 100 mmHg Given 07/27/2025 8:47 AM EDT 100 mg Given 07/26/2025 8:22 AM EDT 100 mg melatonin tablet 5 mg 5 mg, Oral, Nightly PRN, difficulty sleeping, Starting on Wed07/25/25 at 210 Given 07/27/2025 12:31 AM EDT 5 mg meloxicam (MOBIC) tablet 15 mg 15 mg, Oral, Daily, First dose on Vee 07/26/25 at 0900, May administer with food or milk to reduce GI upset. Given 07/27/2025 8:47 AM EDT 15 mg Given 07/26/2025 8:22 AM EDT 15 mg methenamine (HIPREX) tablet 1 g 1 g, Oral, 2 times daily with meals, First dose on Vee 07/26/25 at 0800, Do NOT crush or chew., Indication: Prophylaxis, at risk for:, Infection Source: Urinary Tract Infection / Pyelonephritis Given 07/27/2025 8:47 AM EDT 1 g Given 07/26/2025 6:35 PM EDT 1 g Given 07/26/2025 8:22 AM EDT 1 g multivitamin (MVI) oral 1 each 1 each, Oral, Daily, First dose on Vee 07/26/25 at 0900 Given 07/27/2025 8:47 AM EDT 1 each Given 07/26/2025 8:22 AM EDT 1 each ondansetron (PF) (ZOFRAN) injection 4 mg 4 mg, Intravenous, Every 8 hours PRN, nausea, vomiting, Starting on Wed07/25/25 at 2109, If unable to tolerate PO. ondansetron (ZOFRAN-ODT) disintegrating tablet 4 mg 4 mg, Oral, Every 8 hours PRN, nausea, vomiting, Starting on Wed07/25/25 at 2109 sodium chloride (NS) 0.9 % syringe flush 3 mL 3 mL, Intravenous, As needed, line care, Starting on Wed07/25/25 at 1649, Per Institutional IV Line Care Policy. tamsulosin (FLOMAX) 24 hr capsule 0.4 mg 0.4 mg, Oral, Nightly, First dose on Wed07/25/25 at 2200, Administer 30 minutes after the same meal each day. Capsule may be opened, and the contents taken without crushing or chewing; soft food such as applesauce or pudding may facilitate administration. Contents may generally be administered via large bore (14- to 18- Fr) nasogastric tube using an appropriate fluid provided entire contents are washed down the tube. Given 07/26/2025 8:59 PM EDT 0.4 mg Given 07/25/2025 10:38 PM EDT 0.4 mg thiamine (Vitamin B-1) tablet 100 mg 100 mg, Oral, Daily, First dose on Wed07/26/25 at 0900 Given 07/27/2025 8:47 AM EDT 100 mg Given 07/26/2025 8:22 AM EDT 100 mg traMADoL (ULTRAM) tablet 50 mg 50 mg, Oral, Every 6 hours PRN, moderate pain or 4-6 (on a general 0-10 scale), Starting on Wed07/25/25 at 1648 Given 07/27/2025 6:04 AM EDT 50 mg Given 07/27/2025 12:31 AM EDT 50 mg Given 07/26/2025 12:45 PM EDT 50 mg urea (URE-NA) oral packet 15 g, Oral, 2 times daily, First dose on Wed07/26/25 at 1215, Mix each 15 g packet with 3 to 4 ounces of water or juice and drink whole. Given 07/27/2025 8:29 AM EDT 15 g Given 07/26/2025 9:00 PM EDT 15 g Given 07/26/2025 12:46 PM EDT 15 g vit C,K-siqigm-ttsdvennoh-minerals (PRESERVISION AREDS-2) capsule 1 capsule 1 capsule, Oral, 2 times daily, First dose on Wed07/25/25 at 2200 Given 07/27/2025 8:31 AM EDT 1 capsule Given 07/26/2025 8:59 PM EDT 1 capsule Given 07/26/2025 8:22 AM EDT 1 capsule Inactive Administered Medications - up to 3 most recent administrations Medication Order MAR Action Action Date Dose Rate Site gabapentin (NEURONTIN) capsule 900 mg 900 mg, Oral, Once, On Wed07/25/25 at 1700, For 1 dose Given 07/25/2025 4:57 PM EDT 900 mg documented in this encounter Active and Recently Administered Medications Times are shown in EDT. Scheduled Medication Order 07/25/2025 07/26/2025 07/27/2025 amoxicillin (AMOXIL) capsule 500 mg 500 mg, Oral, Daily, First dose on Wed07/26/25 at 0900, Indication: Prophylaxis, at risk for:, Infection Source: Bone & Joint Infection 0822 (Given - Provider: Kamryn Serna RN) 0831 (Given - Provider: Tayler Syed RN) ascorbic acid (vitamin C) (VITAMIN C) tablet 1,000 mg 1,000 mg, Oral, Daily, First dose on Wed07/26/25 at 0900 0822 (Given - Provider: Kamryn Serna RN) 0831 (Given - Provider: Tayler Syed RN) aspirin chewable tablet 81 mg 81 mg, Oral, Daily, First dose on Vee 07/26/25 at 0900, Administer with full glass of water, food, or milk to decrease GI upset. 0822 (Given - Provider: Kamryn Serna RN) 0831 (Given - Provider: Tayler Syed RN) atorvastatin (LIPITOR) tablet 80 mg 80 mg, Oral, Nightly, First dose on Wed07/25/25 at 2200 2246 (Given - Provider: Sveta Shore RN) 2059 (Given - Provider: Sveta Shore RN) 2100 (Due) cholecalciferol (VITAMIN D3) tablet 1,000 Units 1,000 Units, Oral, Daily, First dose on Vee 07/26/25 at 0900, 25 mcg = 1000 units 0822 (Given - Provider: Kamryn Serna RN) 0831 (Given - Provider: Tayler Syed RN) enoxaparin (LOVENOX) subcutaneous syringe 40 mg 40 mg, Subcutaneous, Every 24 hours, First dose on Wed07/25/25 at 2200, Administer subcutaneously. Rotate injection sites. 2237 (Given - Provider: Sveta Shore RN) 2099 (Given - Provider: Sveta Shore RN) 2099 (Due - Provider: Desmond Meier, JESSICA) ferrous sulfate 325 mg (65 mg redding iron) tablet 325 mg 325 mg, Oral, Daily with breakfast, First dose on Wed07/26/25 at 0800 0822 (Given - Provider: Kamryn Serna RN) 08 (Given - Provider: Tayler Syed RN) folic acid (FOLVITE) tablet 1 mg 1 mg, Oral, Daily, First dose on Wed07/26/25 at 0900 0822 (Given - Provider: Kamryn Serna RN) 0831 (Given - Provider: Tayler Syed RN) gabapentin (NEURONTIN) capsule 900 mg (COMPLETED) 900 mg, Oral, Once, On Wed07/25/25 at 1700, For 1 dose 1657 (Given - Provider: Lidia Grey, JESSICA) gabapentin (NEURONTIN) capsule 900 mg 900 mg, Oral, 3 times daily, First dose on Wed07/26/25 at 0900 0822 (Given - Provider: Kamryn Serna RN)1420 (Given - Provider: Kamryn Serna RN)205 (Given - Provider: Sveta Shore RN) 08 (Given - Provider: Tayler Syed RN)1400 (Due)2100 (Due) insulin glargine (LANTUS) subcutaneous injection 24 Units 24 Units, Subcutaneous, Nightly insulin, First dose on Wed07/25/25 at 2200, If NPO, nutrition held or to be held within the next 6 hours: Give 12 units If tube feeds/TPN are off and insulin given within last 6 hours, check glucose and page RC. 2237 (Given - Provider: Sveta Shore RN) 2120 (Given - Provider: Sveta Shore RN) 2099 (Due - Provider: Desmond Meier, JESSICA) insulin lispro (ADMELOG, HumaLOG) subcutaneous injection 0-12 Units 0-12 Units, Subcutaneous, 4 times daily with meals and nightly insulin, First dose on Wed07/25/25 at 2200, CORRECTIONAL INSULIN: Give even if patient is NPO/not receiving nutrition. Moderate dose Blood glucose (mg/dL): Insulin dose Glucose 70-150: 0 unit. Glucose 151-200: 2 units. Glucose 201-250: 4 units. Glucose 251-300: 6 units. Glucose 301-350: 8 units. Glucose 351-400: 10 units. Glucose >400: 12 units and call RC. For blood glucose < 70 mg/dL call RC AND if patient: 1. Able to take PO, give 15 g of carbohydrate (4 oz fruit juice, regular soda, 8 oz of skim milk, or 3 to 4 glucose tablets) 2. Unable to take PO and PIV PRESENT, administer D50W per prn medication order OR 3. Unable to take PO and NO PIV, call RC/ROLL EXAMINER to obtain order for glucagon Check blood glucose in 15 minutes and repeat if < 80 mg/dL and call RCC, Insulin type: Correctional insulin 2238 (Given - Provider: Sveta Shore RN) 0826 (Not Given - Provider: Kamryn Serna RN - Reason: Order parameters not met)1214 (Not Given - Provider: Kamryn Serna RN - Reason: Order parameters not met)1724 (Not Given - Provider: Kamryn Serna RN - Reason: Order parameters not met)2116 (Not Given - Provider: Sveta Shore RN - Reason: Order parameters not met) 0835 (Not Given - Provider: Tayler Syed RN - Reason: Order parameters not met - Comment: poc 106)1200 (Due - Provider: Desmond Meier RN)1700 (Due - Provider: Desmond Meier, JESSICA)2100 (Due - Provider: Desmond Meier RN) levothyroxine (SYNTHROID, LEVOTHROID) tablet 50 mcg 50 mcg, Oral, Every morning, First dose on Vee 07/26/25 at 0600, Administer on an empty stomach at least 30 minutes before food. Hold enteral nutrition at least 1 hour before and 2 hours after dose. 0535 (Given - Provider: Sveta Shore RN) 0539 (Given - Provider: Sveta Shore RN) losartan (COZAAR) tablet 100 mg 100 mg, Oral, Daily, First dose on Wed07/26/25 at 0900, Hold Parameters: Systolic BP LESS than 100 mmHg 0822 (Given - Provider: Kamryn Serna RN) 0847 (Given - Provider: Tayler Syed, JESSICA) meloxicam (MOBIC) tablet 15 mg 15 mg, Oral, Daily, First dose on Wed07/26/25 at 0900, May administer with food or milk to reduce GI upset. 0822 (Given - Provider: Kamryn Serna RN) 0847 (Given - Provider: Tayler Syed RN) methenamine (HIPREX) tablet 1 g 1 g, Oral, 2 times daily with meals, First dose on Wed07/26/25 at 0800, Do NOT crush or chew., Indication: Prophylaxis, at risk for:, Infection Source: Urinary Tract Infection / Pyelonephritis 0822 (Given - Provider: Kamryn Serna RN)1835 (Given - Provider: Kamryn Serna RN) 0847 (Given - Provider: Tayler Syed RN)1700 (Due) multivitamin (MVI) oral 1 each 1 each, Oral, Daily, First dose on Wed07/26/25 at 0900 0822 (Given - Provider: Kamryn Serna RN) 0847 (Given - Provider: Tayler Syed RN) tamsulosin (FLOMAX) 24 hr capsule 0.4 mg 0.4 mg, Oral, Nightly, First dose on Wed07/25/25 at 2200, Administer 30 minutes after the same meal each day. Capsule may be opened, and the contents taken without crushing or chewing; soft food such as applesauce or pudding may facilitate administration. Contents may generally be administered via large bore (14- to 18- Fr) nasogastric tube using an appropriate fluid provided entire contents are washed down the tube. 2237 (Given - Provider: Sveta Shore RN) 2058 (Given - Provider: Sveta Shore RN) 2100 (Due) thiamine (Vitamin B-1) tablet 100 mg 100 mg, Oral, Daily, First dose on Wed07/26/25 at 0900 0822 (Given - Provider: Kamryn Serna RN) 0847 (Given - Provider: Tayler Syed RN) urea (URE-NA) oral packet 15 g, Oral, 2 times daily, First dose on Wed07/26/25 at 1215, Mix each 15 g packet with 3 to 4 ounces of water or juice and drink whole. 1246 (Given - Provider: Kamryn Serna RN)2100 (Given - Provider: Sveta Shore RN) 0829 (Given - Provider: Tayler Syed RN)2100 (Due) vit C,P-oygexs-jtzrocnaho-mi nerals (PRESERVISION AREDS-2) capsule 1 capsule 1 capsule, Oral, 2 times daily, First dose on Wed07/25/25 at 2200 2332 (Given - Provider: Desmond Meier RN) 0822 (Given - Provider: Kamryn Serna RN)205 (Given - Provider: Sveta Shore RN) 0831 (Given - Provider: Tayler Syed RN)2100 (Due) PRN Medication Order 07/25/2025 07/26/2025 07/27/2025 acetaminophen (TYLENOL) 160 mg/5 mL (5 mL) oral suspension 650 mg(Linked Group 1) 650 mg, Oral, Every 6 hours PRN, mild pain or 1-3 (on a general 0-10 scale), fever, Starting on Wed07/25/25 at 2109, If unable to tolerate tablet. Patient may opt to receive a pain med that is ordered for a lower level of pain. Shake Well 0400 (See Alternative - Provider: Sveta Shore RN)1245 (See Alternative - Provider: Kamryn Serna RN) 0604 (See Alternative - Provider: Sveta Shore RN) acetaminophen (TYLENOL) suppository 650 mg(Linked Group 1) 650 mg, Rectal, Every 6 hours PRN, mild pain or 1-3 (on a general 0-10 scale), fever, Starting on Wed07/25/25 at 2109, If unable to tolerate PO. Patient may opt to receive a pain med that is ordered for a lower level of pain. 0400 (See Alternative - Provider: Sveta Shore, JESSICA)1245 (See Alternative - Provider: Kamryn Serna, RN) 0604 (See Alternative - Provider: Sveta Shore RN) acetaminophen (TYLENOL) tablet 650 mg(Linked Group 1) 650 mg, Oral, Every 6 hours PRN, mild pain or 1-3 (on a general 0-10 scale), fever, Starting on Wed07/25/25 at 2109, Patient may opt to receive a pain med that is ordered for a lower level of pain. 0400 (Given - Provider: Sveta Shore RN)1245 (Given - Provider: Kamryn Serna, JESSICA) 0604 (Given - Provider: Sveta Shore RN) albuterol 90 mcg/actuation inhaler 2 puff 2 puff, Inhalation, Every 6 hours PRN, wheezing, Starting on Wed07/25/25 at 2106, Shake Well D10W bolus 125-250 mL 125-250 mL, Intravenous, As needed, other (free text field), hypoglycemia, Starting on Wed07/25/25 at 2109, If unable to take PO and: Blood glucose < 50 mg/dL or impaired consciousness, give 25 grams (1 amp or 50 mL D50W) = D10W 250 mL. Blood glucose 50-69 mg/dL, give 12.5 grams (1/2 amp or 25 mL D50W) = D10W 125 mL. Call RC Recheck blood glucose in 15 minutes and repeat prn. Administer at 999 ml/hr on pump melatonin tablet 5 mg 5 mg, Oral, Nightly PRN, difficulty sleeping, Starting on Wed07/25/25 at 2109 0031 (Given - Provider: Sveta Shore, JESSICA) ondansetron (PF) (ZOFRAN) injection 4 mg(Linked Group 2) 4 mg, Intravenous, Every 8 hours PRN, nausea, vomiting, Starting on Wed07/25/25 at 2109, If unable to tolerate PO. ondansetron (ZOFRAN-ODT) disintegrating tablet 4 mg(Linked Group 2) 4 mg, Oral, Every 8 hours PRN, nausea, vomiting, Starting on Wed07/25/25 at 2109 polyethylene glycol packet 17 g, Oral, Daily as needed, mild constipation, Starting on Wed07/25/25 at 210 sodium chloride (NS) 0.9 % syringe flush 3 mL 3 mL, Intravenous, As needed, line care, Starting on Wed07/25/25 at 1649, Per Institutional IV Line Care Policy. sodium chloride (NS) 0.9 % syringe flush 3 mL 3 mL, Intravenous, As needed, line care, Starting on Wed07/25/25 at 210, Per Institutional IV Line Care Policy. traMADoL (ULTRAM) tablet 50 mg 50 mg, Oral, Every 6 hours PRN, moderate pain or 4-6 (on a general 0-10 scale), Starting on Wed07/25/25 at 1648 1657 (Given - Provider: Lidia Grey RN) 0133 (Given - Provider: Sveta Shore RN)0615 (Given - Provider: Sveta Shore RN)1245 (Given - Provider: Kamryn Serna RN) 0031 (Given - Provider: Sveta Shore RN)0604 (Given - Provider: Sveta Shore RN) Linked Groups Order Group 1: acetaminophen (TYLENOL) tablet 650 mgJump to med 650 mg, Oral, Every 6 hours PRN, mild pain or 1-3 (on a general 0-10 scale), fever, Starting on Wed07/25/25 at 210, Patient may opt to receive a pain med that is ordered for a lower level of pain. Or acetaminophen (TYLENOL) 160 mg/5 mL (5 mL) oral suspension 650 mgJump to med 650 mg, Oral, Every 6 hours PRN, mild pain or 1-3 (on a general 0-10 scale), fever, Starting on Wed07/25/25 at 210, If unable to tolerate tablet. Patient may opt to receive a pain med that is ordered for a lower level of pain. Shake Well Or acetaminophen (TYLENOL) suppository 650 mgJump to med 650 mg, Rectal, Every 6 hours PRN, mild pain or 1-3 (on a general 0-10 scale), fever, Starting on Wed07/25/25 at 210, If unable to tolerate PO. Patient may opt to receive a pain med that is ordered for a lower level of pain. Group 2: ondansetron (ZOFRAN-ODT) disintegrating tablet 4 mgJump to med 4 mg, Oral, Every 8 hours PRN, nausea, vomiting, Starting on Wed07/25/25 at 210 Or ondansetron (PF) (ZOFRAN) injection 4 mgJump to med 4 mg, Intravenous, Every 8 hours PRN, nausea, vomiting, Starting on Wed07/25/25 at 2108, If unable to tolerate PO. documented in this encounter Additional Health Concerns Assessment Noted Time PHQ-2 Depression Total Score: 0 04/17/20 24 2:22 PM EDT documented as of this encounter Care Teams Global Project Manager Relationship Specialty Start Date End Date Cornelia Membreno MD [address] [place] [address], [address] [place] [address] PCP - General 08/12/17 Cornelia Membreno MD [address] [place] [address], [address] [place] [address] Insurance Assigned Provider 01/28/25 documented as of this encounter Additional Source Comments The information contained in this document represents components of the legal health record. It is not the complete legal health record.[facility]
--- OUTSIDE RECORDS SUMMARY | 2025-07-27 10:57 | XMS_ITS | Encounter Summary ---
Author Organization [facility] Address [address] [place] [address] [place] [address] Phone Support Name Relationship Address Phone Amy Domínguezcecy Leblancangela Emergency Contact [address] [place] [address] Keysha Cox Emergency Contact [address] [place] [address] Care Team Providers Care Naval Gunfire Spotter Name Role Phone Cornelia Membreno MD Primary Care Provider + [phone] Cornelia Membreno MD Unavailable [phone] Cornelia Membreno MD Unavailable [phone] Kaitlin Greene OT Unavailable [phone] Kaitlin Greene OT Unavailable [phone] Encounter Details Date Type Department Care Team (Late st Contact Info) Description 07/17/2022 Procedure Pass Echo Lab [address] [place] [address] Social History Tobacco Use Types Packs/Day Years [...] high school, GED, job training, learning the Russian language, technical skills, or developing parenting skills)? [...] Info) Description 12/05/2024 Procedure Pass Echo Lab [address] [place] [address] 08/28/2025 9:15 AM EST Office Visit [facility] [place] [facility] [address] [place] [address] [place] [address] Cornelia Membreno MD [address] [facility], [address] [place] [address] 10/29/2025 8:30 AM EST Appointment Echo Lab Patricia [address] [place] [address] Cindy Russell DNP [address] [place] [address], [address] [address] 11/01/2025 9:10 AM EST Office Visit [facility] [address] [place] [address] [place] [address] Alejo Elam, [address] [place] [address] 11/16/2025 11:40 AM EST Office Visit [facility] [address] [place] [address] 3rd Floor, [address] [address] Win Zheng MD [address] [place] [address] documented as of this encounter Visit Diagnoses [...] documented as of this encounter Care Teams Naval Gunfire Spotter Relationship Specialty Start Date End Date Cornelia Membreno MD [address] [place] [address], [address] [place] [address] PCP - General 08/12/17 Cornelia Membreno MD [address] [place] [address], [address] [place] [address] Insurance Assigned Provider 01/22/18 05/30/23 Cornelia Membreno MD [address] [place] [address], [address] [place] [address] Insurance Assigned Provider 01/28/25 Kaitlin Greene, OT 30 [place] [address] Transitions Concrete Bucket HookerAnchorer Therapy 04/23/2504/24/25 Kaitlin Greene, OT 30 [place] [address] Transitions Concrete Bucket HookerAnchorer Therapy 07/26/25 documented as of this encounter Additional Source Comments The information contained in this document represents components of the legal health record. It is not the complete legal health record.[facility]
--- OUTSIDE RECORDS SUMMARY | 2025-07-27 10:57 | XMS_ITS | Encounter Summary ---
Author Organization [facility] Address [address] [place] [address] [place] [address] Phone Support Name Relationship Address Phone Amy Varela Emergency Contact [address] [place] [address] Keysha Cox Emergency Contact [address] [place] [address] Care Team Providers Care Spray Stainer Name Role Phone Cornelia Membreno MD Primary Care Provider [phone] Bakari Henson MD Unavailable [phone] Art Ley MD Unavailable Akira Malik MD Unavailable [phone] Cornelia Membreno MD Unavailable [phone] Cornelia Membreno MD Unavailable [phone] Kaitlin Greene OT Unavailable [phone] Kaitlin Greene OT Unavailable [phone] Encounter Details Date Type Department Care Team (Late st Contact Info) Description 08/07/2021 Transcribe Orders [facility] Specimen Processing 30 [place] [address] Cornelia Membreno MD 22 [facility], [address] [place], [place] [id number] [email or web address] Social History Tobacco Use Types Packs/Day Years [...] high school, GED, job training, learning the Tuvaluan language, technical skills, or developing parenting skills)? [...] Info) Description 12/05/2024 Procedure Pass Echo Lab [address] [place] [address] 08/28/2025 9:15 AM EST Office Visit [facility] [place] [facility] [address] [place] [address] [place] [address] Cornelia Membreno MD [address] [place] [address], [address] [place] [address] 10/29/2025 8:30 AM EST Appointment Echo Lab [address] [place] [address] Cindy Russell, MICHELLE [address] [place] [address], [address] [place] [address] 11/01/2025 9:10 AM EST Office Visit [facility] [address] [place] [address] [place] [address] Alejo Elam DO [address] [place] [address] 11/16/2025 11:40 AM EST Office Visit [facility] [address] [place] [address] 3rd Floor, [address] [address] Win Zheng MD [address] [place] [address], [address] [address] documented as of this encounter Visit Diagnoses [...] documented as of this encounter Care Teams Spray Stainer Relationship Specialty Start Date End Date Cornelia Membreno MD [address] [place] [address], [address] [place] [address] PCP - General 08/12/17 Bakari Henson MD [address] [place] [address] [email or web address] Historical LMR Provider 08/14/17 11/01/21 Art Ley MD [address] [place] [address] [email or web address] Historical LMR Provider 08/14/17 11/01/21 Akira Malik MD [address] [place] [address] Historical LMR Provider 08/14/17 11/01/21 Cornelia Membreno MD [address] [place] [address], [address] [place] [address] Insurance Assigned Provider 01/22/18 05/30/23 Cornelia Membreno MD [address] [place] [address], [address] [place] [address] Insurance Assigned Provider 01/28/25 Kaitlin Greene, OT [address] [place] [address] [email or web address] Transitions Architecture TechnicianDevelopment Intern Therapy 04/23/2504/24/25 Kaitlin Greene, OT [address] [place] [address] [email or web address] Transitions Architecture TechnicianDevelopment Intern Therapy 07/26/25 documented as of this encounter Additional Source Comments The information contained in this document represents components of the legal health record. It is not the complete legal health record.[facility]
--- OUTSIDE RECORDS SUMMARY | 2025-07-27 10:57 | XMS_ITS | Encounter Summary ---
Author Organization [facility] Address [address] [place] [address] Care Team Providers Care Target Setter Name Role Phone Ruth Matthews MD Primary Care Provider Encounter Details Date Type Department Care Team (Late st Contact Info) Description 02/24/[address] [facility] - Main Lab 299 [facility] [place] [address] Ruth Matthews MD [address] [place] [address] Encounter for other general examination Social History [...] Antigen Negative Negative 02/24/2025 10:51 AM EDT [facility] C difficile Toxins A+B, EIA Negative Negative 02/24/2025 10:51 AM EDT [facility] Comment:NEGATIVE FOR TOXIN P RODUCING CLOSTRIDIOIDES DIFFICILE, NO ADDITIONAL TESTING IS NECESSARY. Stool Rectum structure / Unknown 02/23/2025 2:10 PM EDT 02/24/2025 9:42 AM EDT us Ruth Matthews MD LAB MICROBIOLOGY - GENERAL ORD ERABLES Final Result [facility] 299 [place] [address], documented in this encounter Visit Diagnoses Diagnosis Encounter for other general examination documented in this encounter Care Teams Target Setter Relationship Specialty Start Date End Date Ruth Matthews MD [address] [place] [address] PCP - General Internal Medicine 02/16/25 documented as of this encounter
--- OUTSIDE RECORDS SUMMARY | 2025-07-27 10:57 | XMS_ITS | Encounter Summary ---
Author Organization [facility] Address [address] [facility] [address] [place] [address] Phone Care Team Providers Care Bottom Liquor Attendant Name Role Phone Cornelia Membreno MD Primary Care Provider [phone] Cornelia Membreno MD Unavailable [phone] Kaitlin Greene OT Unavailable [phone] Reason for Visit * Reason Comments Medication Refill Encounter Details Date Type Department Care Team (Late st Contact Info) Description 05/26/2025 Refill [facility] [address] [place] [address] 3rd Floor, [address] [place] [address] Colton Craft, 22 [facility] [address] [place] [address] [email or web address] Medication Refill Social History Tobacco Use Types [...] Description 12/05/2024 Procedure Pass Echo Lab [address] [place] [address] 08/28/2025 9:15 AM EST Office Visit [facility] [address] [place] [address] [place] [address] Cornelia Membreno MD [address] [place] [address], [address] [place] [address] 10/29/2025 8:30 AM EST Appointment Echo Lab [address] [place] [address] Cindy Russell DNP [address] [place] [address] 11/01/2025 9:10 AM EST Office Visit [facility] [address] [place] [address] [place] [address] Alejo Elam DO [address] [place] [address] 11/16/2025 11:40 AM EST Office Visit [facility] [address] [place] [address] 3rd Floor, [address] [address] Win Zheng MD [address] [place] [address] documented as of this encounter Visit Diagnoses Diagnosis Essential hypertension Unspecified essential hypertension documented in this encounter Additional Health Concerns Assessment Noted Time PHQ-2 Depression Total Score: 0 04/17/20 24 2:22 PM EDT documented as of this encounter Care Teams Bottom Liquor Attendant Relationship Specialty Start Date End Date Cornelia Membreno MD 22 [facility], [address] [place] [address] [email or web address] PCP - General 08/12/17 Cornelia Membreno MD 22 [facility], [address] [place] [address] [email or web address] Insurance Assigned Provider 01/28/25 Kaitlin Greene, OT [address] [place] [address] [email or web address] Transitions Manager PlantMuseum Director Therapy 07/26/25 documented as of this encounter Additional Source Comments The information contained in this document represents components of the legal health record. It is not the complete legal health record.[facility]
--- OUTSIDE RECORDS SUMMARY | 2025-07-27 10:57 | XMS_ITS | Encounter Summary ---
Author Organization [facility] Address [address] [place] [address] [place] [address] Phone Support Name Relationship Address Phone Amy Domínguezcecy Leblancangela Emergency Contact [address] [place] [address] Keysha Cox Emergency Contact [address] [place] [address] Care Team Providers Care Fryline Attendant Name Role Phone Cornelia Membreno MD Primary Care Provider + [phone] Cornelia Membreno MD Unavailable [phone] Cornelia Membreno MD Unavailable [phone] Kaitlin Greene OT Unavailable [phone] Kaitlin Greene OT Unavailable [phone] Encounter Details Date Type Department Care Team (Late st Contact Info) Description 09/23/2022 Procedure Pass [address] [place] [address] Social History Tobacco Use Types Packs/Day Years [...] high school, GED, job training, learning the Telugu language, technical skills, or developing parenting skills)? [...] Info) Description 12/05/2024 Procedure Pass Echo Lab [address] [place] [address] 08/28/2025 9:15 AM EST Office Visit [facility] [place] [facility] [address] [place] [address] [place] [address] Cornelia Membreno MD 22 [facility], [address] [place] [address] 10/29/2025 8:30 AM EST Appointment Echo Lab [address] [address] Cindy Russell DNP 22 [facility], [address] [address] 11/01/2025 9:10 AM EST Office Visit [facility] [address] [place] [address] Alejo Elam DO 22 [place] [address] 11/16/2025 11:40 AM EST Office Visit [facility] [address] [place] [address] 3rd Floor, [address] [address] Win Zheng MD [address] [place] [address] documented as of this encounter Visit Diagnoses [...] documented as of this encounter Care Teams Fryline Attendant Relationship Specialty Start Date End Date Cornelia Membreno MD [address] [place] [address], [address] [address] PCP - General 08/12/17 Cornelia Membreno MD [address] [place] [address], [address] [place] [address] Insurance Assigned Provider 01/22/18 05/30/23 Cornelia Membreno MD 22 [facility], [address] [place] [address] Insurance Assigned Provider 01/28/25 Kaitlin Greene, OT 30 [place] [address] Transitions Feather SawyerDrapery Sewer Hand Therapy 04/23/2504/24/25 Kaitlin Greene, OT 30 [place] [address] Transitions Feather SawyerDrapery Sewer Hand Therapy 07/26/25 documented as of this encounter Additional Source Comments The information contained in this document represents components of the legal health record. It is not the complete legal health record.[facility]
--- OUTSIDE RECORDS SUMMARY | 2025-07-27 10:57 | XMS_ITS | Encounter Summary ---
Author Organization [facility] Address [address] [place] [address] Care Team Providers Care Swing Driver Name Role Phone Ruth Matthews MD Primary Care Provider [phone] Encounter Details Date Type Department Care Team (Late st Contact Info) Description 02/26/2025 Lab Requisition [facility] - Main Lab [address] [place] [address] Ruth Matthews MD [address] [place] [address] Encounter for other general examination Social History [...] ult [facility] 299 [place] [address], documented in this encounter Visit Diagnoses Diagnosis Encounter for other general examination documented in this encounter Care Teams Swing Driver Relationship Specialty Start Date End Date Ruth Matthews MD [address] [place] [address] PCP - General Internal Medicine 02/16/25 documented as of this encounter
--- OUTSIDE RECORDS SUMMARY | 2025-07-27 10:57 | XMS_ITS | Encounter Summary ---
Author Organization [facility] Address [address] [place] [address] [place] [address] Phone Support Name Relationship Address Phone Amy Varela Emergency Contact [address] [place] [address] Keysha Cox Emergency Contact [address] [place] [address] Care Team Providers Care Figure Refinisher And Repairer Name Role Phone Cornelia Membreno MD Primary Care Provider + [phone] Bakari Henson MD Unavailable [phone] Art Ley MD Unavailable Akira Malik MD Unavailable [phone] Cornelia Membreno MD Unavailable [phone] Cornelia Membreno MD Unavailable [phone] Kaitlin Greene OT Unavailable [phone] Kaitlin Greene OT Unavailable [phone] Encounter Details Date Type Department Care Team (Late st Contact Info) Description 09/29/2021 Procedure Pass Echo Lab [place] [place], [place] [address] Social History Tobacco Use Types Packs/Day Years [...] high school, GED, job training, learning the Slovenian language, technical skills, or developing parenting skills)? [...] Info) Description 12/05/2024 Procedure Pass Echo Lab [address] [place] [address] 08/28/2025 9:15 AM EST Office Visit [facility] [place] [address] Cornelia Membreno MD [address] [place] [address], [address] [place] [address] 10/29/2025 8:30 AM EST Appointment Echo Lab [place] [address] Cindy Russell DNP [address] [place] [address], [address] [place] [address] 11/01/2025 9:10 AM EST Office Visit [facility] [address] [place] [address] Alejo Elam DO [address] [place] [address] 11/16/2025 11:40 AM EST Office Visit [facility] [address] [place] [address] 3rd Floor, [address] [address] Win Zheng MD [address] [place] [address], [address] [address] [email or web address] documented as of this encounter Visit Diagnoses [...] documented as of this encounter Care Teams Figure Refinisher And Repairer Relationship Specialty Start Date End Date Cornelia Membreno MD [address] [place] [address], [address] [place] [address] PCP - General 08/12/17 Bakari Henson MD [address] [place] [address] [email or web address] Historical LMR Provider 08/14/17 11/01/21 Art Ley MD [address] [place] [address] [email or web address] Historical LMR Provider 08/14/17 11/01/21 Akira Malik MD [address] [place] [address] Historical LMR Provider 08/14/17 11/01/21 Cornelia Membreno MD [address] [place] [address], [address] [place] [address] Insurance Assigned Provider 01/22/18 05/30/23 Cornelia Membreno MD [address] [place] [address], [address] [place] [address] Insurance Assigned Provider 01/28/25 Kaitlin Greene, OT 30 [place] [address] Transitions Technician Support EngineerHole Puncher Strap Therapy 04/23/2504/24/25 Kaitlin Greene, OT 30 [place] [address] [email or web address] Transitions Technician Support EngineerHole Puncher Strap Therapy 07/26/25 documented as of this encounter Additional Source Comments The information contained in this document represents components of the legal health record. It is not the complete legal health record.[facility]
--- OUTSIDE RECORDS SUMMARY | 2025-07-27 10:57 | XMS_ITS | Encounter Summary ---
Author Organization [facility] Address [address] [place] [address] Care Team Providers Care Plate And Weld Inspector Name Role Phone Ruth Matthews MD Primary Care Provider [phone] Encounter Details Date Type Department Care Team (Late st Contact Info) Description 02/23/2025 Lab Requisition [facility] - Main Lab 299 [facility] [place] [address] Ruth Matthews MD [address] [place] [address] Encounter for other general examination Social History [...] for add-ons. 02/23/2025 10:01 AM EDT [facility] Comment:Auto resulted. Blood Venous blood specimen / Unknown Venipuncture / Unknown 02/23/2025 5:18 AM EDT 02/23/2025 8:48 AM EDT Ruth Matthews MD LAB BLOOD ORDERABLES Final Res ult [facility] [address] [place] [address], * (ABNORMAL) Basic metabolic panel (02/23/2025 5:18 AM EDT) Sodium 129(L) 133 - 145 mmol/L LAB CHEMISTRY METHOD 02/23/2025 10:29 AM [facility] Potassium 4.7 3.5 - 5.5 mmol/L LAB CHEMISTRY METHOD 02/23/2025 10:29 AM [facility] Chloride 94(L) 96 - 110 mmol/L LAB CHEMISTRY METHOD 02/23/2025 10:29 AM [facility] CO2 26 21 - 32 mmol/L LAB CHEMISTRY METHOD 02/23/2025 10:29 AM [facility] Anion Gap 9 3 - 11 LAB CHEMISTRY METHOD 02/23/2025 10:29 AM [facility] Glucose 107(H) 70 - 100 mg/dL LAB CHEMISTRY METHOD 02/23/2025 10:29 AM [facility] BUN 26(H) 5 - 25 mg/dL LAB CHEMISTRY METHOD 02/23/2025 10:29 AM [facility] Creatinine 0.80 0.70 - 1.30 mg/dL LAB CHEMISTRY METHOD 02/23/2025 10:29 AM [facility] eGFR 93 >=60 mL/min/1. 73m2 LAB CHEMISTRY METHOD 02/23/2025 10:29 AM [facility] Comment:Calculation based on the Chronic Kidney Disease Epidemiology Collaboration (CKD-EPI) equation refit without adjustment for race. BUN/Creatinine Ratio 32.5 LAB CHEMISTRY METHOD 02/23/2025 10:29 AM [facility] Calcium 9.4 8.5 - 10.5 mg/dL LAB CHEMISTRY METHOD 02/23/2025 10:29 AM EDT [facility] Blood Venous blood specimen / Unknown Venipuncture / Unknown 02/23/2025 5:18 AM EDT 02/23/2025 8:48 AM EDT us Ruth Matthews MD LAB BLOOD ORDERABLES Final Res ult [facility] [address] [place] [address], documented in this encounter Visit Diagnoses Diagnosis Encounter for other general examination documented in this encounter Care Teams Plate And Weld Inspector Relationship Specialty Start Date End Date Ruth Matthews MD [address] [place] [address] PCP - General Internal Medicine 02/16/25 documented as of this encounter
--- OUTSIDE RECORDS SUMMARY | 2025-07-27 10:57 | XMS_ITS | Encounter Summary ---
Author Organization [facility] Address [address] [place] [address] [place] [address] Phone Care Team Providers Care Ingot Header Name Role Phone Cornelia Membreno MD Primary Care Provider + [phone] Cornelia Membreno MD Unavailable [phone] Kaitlin Greene OT Unavailable [phone] Kaitlin Greene OT Unavailable [phone] Encounter Details Date Type Department Care Team (Late st Contact Info) Description 07/26/2024 Procedure Pass [facility], Ct Scan - [address] [address] Social History Tobacco Use Types Packs/Day Years [...] ecorded Are you denied basic needs [facility] as food, clothing, or medical care? No 07/26/2024 In the past 12 months have y ou been in a relationship with a person who hurts, threatens, or tries to control you? No 07/26/2024 Are you denied basic needs [facility] as food, clothing, or medical care? No [...] 8:09 PM EDT Danna Boykin RN * [place] Suicide Severity Rating Scale (Screener/Recent Self-Report) Question [...] Info) Description 12/05/2024 Procedure Pass Echo Lab [address] [place] [address] 08/28/2025 9:15 AM EST Office Visit [facility] [address] [place] [address] Cornelia Membreno MD [address] [place] [address], [address] [place] [address] 10/29/2025 8:30 AM EST Appointment Echo Lab [address] [place] [address] Cindy Russell, MICHELLE [address] [place] [address], [address] [place] [address] 11/01/2025 9:10 AM EST Office Visit [facility] [address] [place] [address] [place] [address] Alejo Elam DO [address] [place] [address] 11/16/2025 11:40 AM EST Office Visit [facility] [address] [place] [address] 3rd Floor, [address] [place] [address] Win Zheng MD 22 [facility], [address] [place] [address] documented as of this encounter Visit Diagnoses Not on filedocumented in this encounter Additional Health Concerns Infection Onset Date Last Indicated Resolved Time CDiff-Risk 07/27/2024 07/27/2024 07/27/2024 8:21 PM EDT Assessment Noted Time PHQ-2 Depression Total Score: 0 04/17/20 24 2:22 PM EDT documented as of this encounter Care Teams Ingot Header Relationship Specialty Start Date End Date Cornelia Membreno MD [address] [facility], [address] [place] [address] PCP - General 08/12/17 Cornelia Membreno MD [address] [place] [address], [address] [place] [address] Insurance Assigned Provider 01/28/25 Kaitlin Greene, OT 30 [place] [address] Transitions Senior Infrastructure EngineerField Sales Associate Therapy 04/23/2504/24/25 Kaitlin Greene, OT 30 [place] [address] Transitions Senior Infrastructure EngineerField Sales Associate Therapy 07/26/25 documented as of this encounter Additional Source Comments The information contained in this document represents components of the legal health record. It is not the complete legal health record.[facility]
--- OUTSIDE RECORDS SUMMARY | 2025-07-27 10:57 | XMS_ITS | Encounter Summary ---
Author Organization [facility] Address [address] [facility] [address] [place] [address] Phone Care Team Providers Care Electrical Instrumentation Technician Name Role Phone Cornelia Membreno MD Primary Care Provider Cornelia Membreno MD Unavailable [phone] Kaitlin Greene OT Unavailable [phone] Reason for Visit * Reason Comments Medication Refill Encounter Details Date Type Department Care Team (Late st Contact Info) Description 05/06/2025 Refill [facility] [place] [facility] [address] [place] [address] [place] [address] Cornelia Membreno MD [address] [facility], [address] [place] [address] [email or web address] Medication Refill Social History Tobacco Use Types [...] Info) Description 12/05/2024 Procedure Pass Echo Lab [address] [place] [address] 08/28/2025 9:15 AM EST Office Visit [facility] [address] [place] [address] [place] [address] Cornelia Membreno MD [address] [place] [address], [address] [place] [address] 10/29/2025 8:30 AM EST Appointment Echo Lab [address] [place] [address] Cindy Russell DNP [address] [place] [address], [address] [address] 11/01/2025 9:10 AM EST Office Visit [facility] [address] [place] [address] [place] [address] Alejo Elam DO [address] [place] [address] 11/16/2025 11:40 AM EST Office Visit [facility] [address] [place] [address] 3rd Floor, [address] [address] Win Zheng MD [address] [place] [address], [address] [address] documented as of this encounter Visit Diagnoses Diagnosis Pain Generalized pain documented in this encounter Additional Health Concerns Assessment Noted Time PHQ-2 Depression Total Score: 0 04/17/20 24 2:22 PM EDT documented as of this encounter Care Teams Electrical Instrumentation Technician Relationship Specialty Start Date End Date Temi, Cornelia M, MD [address] [facility], [address] [place] [address] [email or web address] PCP - General 08/12/17 Cornelia Membreno MD 22 [facility], [address] [place] [address] [email or web address] Insurance Assigned Provider 01/28/25 Kaitlin Greene, OT [address] [place] [address] [email or web address] Transitions Manager [employer] Traffic Control Supervisor Therapy 07/26/25 documented as of this encounter Additional Source Comments The information contained in this document represents components of the legal health record. It is not the complete legal health record.[facility]
--- OUTSIDE RECORDS SUMMARY | 2025-07-27 10:57 | XMS_ITS | Encounter Summary ---
Author Organization [facility] Address [address] [place] [address] [place] [address] Phone Care Team Providers Care Folder Seamer Name Role Phone Cornelia Membreno MD Primary Care Provider + [phone] Cornelia Membreno MD Unavailable [phone] Kaitlin Greene OT Unavailable [phone] Kaitlin Greene OT Unavailable [phone] Encounter Details Date Type Department Care Team (Late st Contact Info) Description 04/22/2025 Procedure Pass [facility] [address] [place] [address] Social History Tobacco Use Types Packs/Day Years [...] you interested in more education? Not on ajnine e 04/02/2023 Are you concerned about learning? [...] Author No Risk Indicated 04/22/2025 1:05 AM Ezequiel Bill RN * [place] Suicide Severity Rating Scale (Screener/Recent Self-Report) Question Answer Date of Assessment Author 1. Wish to be (Past 1 Month) No 04/22/2025 1:05 AM Ezequiel Bill RN 2. Non-Specific Active Suicidal Thoughts (Past 1 Month) No 04/22/2025 1:05 AM Ezequiel Bill RN 6. Suicidal Behavior (Lifetime) No 04/22/2025 1:05 AM Ezequiel Bill RN documented as of this encounter Plan of Treatment Upcoming Encounters Date Type Department Care Team (Late st Contact Info) Description 12/05/2024 Procedure Pass Echo Lab [address] [place] [address] 08/28/2025 9:15 AM EST Office Visit [facility] [address] [place] [address] [place] [address] Cornelia Membreno MD [address] [place] [address], [address] [place] [address] 10/29/2025 8:30 AM EST Appointment Echo Lab [address] [place] [address] Cindy Russell DNP [address] [place] [address], [address] [address] 11/01/2025 9:10 AM EST Office Visit [facility] [address] [place] [address] [place] [address] Alejo Elam DO [address] [place] [address] 11/16/2025 11:40 AM EST Office Visit [facility] [address] [place] [address] 3rd Floor, [address] [address] Win Zheng MD 22 [facility], [address] [place] [address] [email or web address] documented as of this encounter Visit Diagnoses Not on filedocumented in this encounter Additional Health Concerns Assessment Noted Time PHQ-2 Depression Total Score: 0 04/17/20 24 2:22 PM EDT documented as of this encounter Care Teams Folder Seamer Relationship Specialty Start Date End Date Cornelia Membreno MD [address] [facility], [address] [place] [address] [email or web address] PCP - General 08/12/17 Cornelia Membreno MD 22 [facility], [address] [place] [address] [email or web address] Insurance Assigned Provider 01/28/25 Kaitlin Greene, OT [address] [place] [address] [email or web address] Transitions Wellness CoachEnterprise Systems Manager Therapy 04/23/2504/24/25 Kaitlin Greene, OT 30 [place] [address] [email or web address] Transitions Wellness CoachEnterprise Systems Manager Therapy 07/26/25 documented as of this encounter Additional Source Comments The information contained in this document represents components of the legal health record. It is not the complete legal health record.[facility]
--- OUTSIDE RECORDS SUMMARY | 2025-07-27 10:57 | XMS_ITS | Encounter Summary ---
Author Organization [facility] Address [address] [place] [address] [place] [address] Phone Care Team Providers Care Drier Name Role Phone Cornelia Membreno MD Primary Care Provider + [phone] Bakari Henson MD Unavailable [phone] Art Ley MD Unavailable [phone] Akira Malik MD Unavailable [phone] Cornelia Membreno MD Unavailable [phone] Cornelia Membreno MD Unavailable [phone] Kaitlin Greene OT Unavailable [phone] Kaitlin Greene OT Unavailable [phone] Encounter Details Date Type Department Care Team (Late st Contact Info) Description 11/22/2020 Procedure Pass [facility], Ct Scan - [facility] [address] [place] [address] Social History Tobacco Use Types Packs/Day Years [...] Info) Description 12/05/2024 Procedure Pass Echo Lab [address] [place] [address] 08/28/2025 9:15 AM EST Office Visit [facility] [address] [place] [address] [place] [address] Cornelia Membreno MD [address] [place] [address], [address] [place] [address] 10/29/2025 8:30 AM EST Appointment Echo Lab [address] [place] [address] Cindy Russell DNP [address] [place] [address], [address] [place] [address] 11/01/2025 9:10 AM EST Office Visit [facility] [address] [place] [address] [place] [address] Alejo Elam DO [address] [place] [address] 11/16/2025 11:40 AM EST Office Visit [facility] [address] [place] [address] 3rd Floor, [address] [place] [address] Win Zheng MD [address] [place] [address], [address] [address] documented as of this encounter Visit Diagnoses Not on filedocumented in this encounter Additional Health Concerns Infection Onset Date Last Indicated Resolved Time CoV-Risk Comment:Per Ambulatory Triage Form 10/14/2021 10/16/202110/26 /2022 1:24 AM EST CoV-Risk Comment:Per Ambulatory Triage Form 10/06/2022 10/06/202210/17 1:24 AM EST CDiff-Risk 07/17/2024 07/17/2024 07/17/2024 8:54 PM EDT CDiff-Risk 07/27/2024 07/27/2024 07/27/2024 8:21 PM EDT Assessment Noted Time PHQ-2 Depression Total Score: 1 08/29/20 19 12:06 PM EST documented as of this encounter Care Teams Drier Relationship Specialty Start Date End Date Cornelia Membreno MD [address] [place] [address], [address] [place] [address] PCP - General 08/12/17 Bakari Henson MD [address] [place] [address] [email or web address] Historical LMR Provider 08/14/17 11/01/21 Art Ley MD [address] [place] [address] [email or web address] Historical LMR Provider 08/14/17 11/01/21 Akira Malik MD [address] [place] [address] Historical LMR Provider 08/14/17 11/01/21 Cornelia Membreno MD [address] [place] [address], [address] [place] [address] Insurance Assigned Provider 01/22/18 05/30/23 Cornelia Membreno MD [address] [place] [address], [address] [place] [address] [email or web address] Insurance Assigned Provider 01/28/25 Kaitlin Greene, OT [address] [place] [address] [email or web address] Transitions Social Media Content ManagerChain Sales Consultant Therapy 04/23/2504/24/25 Kaitlin Greene, OT [address] [place] [address] [email or web address] Transitions Social Media Content ManagerChain Sales Consultant Therapy 07/26/25 documented as of this encounter Additional Source Comments The information contained in this document represents components of the legal health record. It is not the complete legal health record.[facility]
--- OUTSIDE RECORDS SUMMARY | 2025-07-27 10:57 | XMS_ITS | Encounter Summary ---
Author Organization [facility] Address [address] [place] [address] [place] [address] Phone Care Team Providers Care Conference Services Coordinator Name Role Phone Cornelia Membreno MD Primary Care Provider [phone] Cornelia Membreno MD Unavailable [phone] Kaitlin Greene OT Unavailable [phone] Encounter Details Date Type Department Care Team (Late st Contact Info) Description 05/01/2025 Procedure Pass Non-Invasive Cardiology [address] [place] [address] Social History Tobacco Use Types Packs/Day Years [...] Info) Description 12/05/2024 Procedure Pass Echo [facility] Patricia [address] [place] [address] 08/28/2025 9:15 AM EST Office Visit [facility] [place] [facility] [address] [place] [address] [place] [address] Cornelia Membreno MD [address] [place] [address], [address] [place] [address] 10/29/2025 8:30 AM EST Appointment Echo Lab [address] [place] [address] Cindy Russell DNP [address] [place] [address], [address] [place] [address] 11/01/2025 9:10 AM EST Office Visit [facility] [address] [place] [address] [place] [address] Alejo Elam DO [address] [place] [address] 11/16/2025 11:40 AM EST Office Visit [facility] [address] [place] [address] Dr 3rd Floor, [address] [address] Win Zheng MD [address] [place] [address], [address] [address] documented as of this encounter Visit Diagnoses Not on filedocumented in this encounter Additional Health Concerns Assessment Noted Time PHQ-2 Depression Total Score: 0 04/17/20 24 2:22 PM EDT documented as of this encounter Care Teams Conference Services Coordinator Relationship Specialty Start Date End Date Cornelia Membreno MD [address] [place] [address], [address] [place] [address] PCP - General 08/12/17 Cornelia Membreno MD [address] [place] [address], [address] [place] [address] [email or web address] Insurance Assigned Provider 01/28/25 Kaitlin Greene, OT [address] [place] [address] [email or web address] Transitions Workers Compensation ConsultantDietitian Teacher Therapy 07/26/25 documented as of this encounter Additional Source Comments The information contained in this document represents components of the legal health record. It is not the complete legal health record.[facility]
--- OUTSIDE RECORDS SUMMARY | 2025-07-27 10:57 | XMS_ITS | Encounter Summary ---
Author Organization [facility] Address [address] [place] [address] [place] [address] Phone Support Name Relationship Address Phone Amy Domínguezcecy Leblancangela Emergency Contact [address] [place] [address] Keysha Cox Emergency Contact [address] [place] [address] Care Team Providers Care Recycling Coordinator Name Role Phone Cornelia Membreno MD Primary Care Provider + [phone] Cornelia Membreno MD Unavailable [phone] Cornelia Membreno MD Unavailable [phone] Kaitlin Greene OT Unavailable [phone] Kaitlin Greene OT Unavailable [phone] Encounter Details Date Type Department Care Team (Late st Contact Info) Description 09/23/2022 Procedure Pass [address] [place] [address] Social History Tobacco Use Types Packs/Day Years [...] high school, GED, job training, learning the Faroese language, technical skills, or developing parenting skills)? [...] Info) Description 12/05/2024 Procedure Pass Echo Lab [address] [place] [address] 08/28/2025 9:15 AM EST Office Visit [facility] [address] [place] [address] [place] [address] Cornelia Mmebreno MD [address] [place] [address], [address] [place] [address] 10/29/2025 8:30 AM EST Appointment Echo Lab [address] [place] [address] Cindy Russell, MICHELLE [address] [place] [address], [address] [place] [address] 11/01/2025 9:10 AM EST Office Visit [facility] [address] [place] [address] [place] [address] Alejo Elam DO [address] [place] [address] 11/16/2025 11:40 AM EST Office Visit [facility] [address] [place] [address] 3rd Floor, [address] [address] Win Zheng MD [address] [place] [address], [address] [address] documented as of this encounter Visit Diagnoses [...] documented as of this encounter Care Teams Recycling Coordinator Relationship Specialty Start Date End Date Cornelia Membreno MD 22 [facility], [address] [place] [address] PCP - General 08/12/17 Cornelia Membreno MD 22 [facility], [address] [place] [address] Insurance Assigned Provider 01/22/18 05/30/23 Cornelia Membreno MD 22 [facility], [address] [place] [address] Insurance Assigned Provider 01/28/25 Kaitlin Greene, OT [address] [place] [address] Transitions Sales Solutions AssociateBevel Polisher Therapy 04/23/2504/24/25 Kaitlin Greene, OT [address] [place] [address] Transitions Sales Solutions AssociateBevel Polisher Therapy 07/26/25 documented as of this encounter Additional Source Comments The information contained in this document represents components of the legal health record. It is not the complete legal health record.[facility]
--- OUTSIDE RECORDS SUMMARY | 2025-07-27 10:57 | XMS_ITS | Encounter Summary ---
Author Organization [facility] Address [address] [place] [address] [place] [address] Phone Support Name Relationship Address Phone Amy Varela Emergency Contact [address] [place] [address] Keysha Cox Emergency Contact [address] [place] [address] Care Team Providers Care Job Service Specialist Name Role Phone Cornelia Membreno MD Primary Care Provider + [phone] Bakari Henson MD Unavailable [phone] Art Ley MD Unavailable Akria Malik MD Unavailable [phone] Cornelia Membreno MD Unavailable [phone] Cornelia Membreno MD Unavailable [phone] Kaitlin Greene OT Unavailable [phone] Kaitlin Greene OT Unavailable [phone] Encounter Details Date Type Department Care Team (Late st Contact Info) Description 09/10/2021 Procedure Pass [facility] Admitting Dept Virtual Department [address] [place], [place] [id number] Social History Tobacco Use Types Packs/Day Years [...] Info) Description 12/05/2024 Procedure Pass Echo [place] [address] 08/28/2025 9:15 AM EST Office Visit [facility] [address] [place] [address] Cornelia Membreno MD [address] [place] [address], [address] [place] [address] 10/29/2025 8:30 AM EST Appointment Echo Lab [address] [place] [address] Cindy Russell DNP [address] [place] [address], [address] [place] [address] 11/01/2025 9:10 AM EST Office Visit [facility] [address] [place] [address] [place] [address] Alejo Elam DO [address] [place] [address] 11/16/2025 11:40 AM EST Office Visit [facility] [address] [place] [address] 3rd Floor, [address] [place] [address] Win Zheng MD [address] [place] [address], [address] [address] documented as of this encounter Visit Diagnoses [...] Time PHQ-2 Depression Total Score: 1 08/29/20 12:06 PM EST documented as of this encounter Care Teams Job Service Specialist Relationship Specialty Start Date End Date Cornelia Membreno MD [address] [place] [address], [address] [place] [address] PCP - General 08/12/17 Bakari Henson MD [address] [place] [address] [email or web address] Historical LMR Provider 08/14/17 11/01/21 Art Ley MD [address] [place] [address] [email or web address] Historical LMR Provider 08/14/17 11/01/21 Akira Malik MD [address] [place] [address] [email or web address] Historical LMR Provider 08/14/17 11/01/21 Cornelia Membreno MD [address] [place] [address], [address] [place] [address] Insurance Assigned Provider 01/22/18 05/30/23 Cornelia Membreno MD [address] [place] [address], [address] [place] [address] Insurance Assigned Provider 01/28/25 Kaitlin Greene, OT [address] [place] [address] [email or web address] Transitions Litigation ManagerEmbroidery Cutter Therapy 04/23/2504/24/25 Kaitlin Greene, OT [address] [place] [address] [email or web address] Transitions Litigation ManagerEmbroidery Cutter Therapy 07/26/25 documented as of this encounter Additional Source Comments The information contained in this document represents components of the legal health record. It is not the complete legal health record.[facility]
--- OUTSIDE RECORDS SUMMARY | 2025-07-27 10:57 | XMS_ITS | Encounter Summary ---
Author Organization [facility] Address [address] [place] [address] Care Team Providers Care Steam Pipe Fitter Name Role Phone Ruth Matthews MD Primary Care Provider [phone] Encounter Details Date Type Department Care Team (Late st Contact Info) Description 02/20/2025 Lab Requisition [facility] - Main Lab [address] [place] [address] Ruth Matthews MD [address] [place] [address] Encounter for other general examination Social History [...] LAB CHEMISTRY METHOD 02/20/2025 1:42 PM EDT [facility] Urine Urine specimen obtained by clean catch procedure / Unknown Non-blood Collection / Unknown 02/20/2025 5:04 AM EDT 02/20/2025 10:11 AM EDT us Ruth Matthews MD LAB URINE ORDERABLES Final Res ult [facility] [address] [place] [address], documented in this encounter Visit Diagnoses Diagnosis Encounter for other general examination documented in this encounter Care Teams Steam Pipe Fitter Relationship Specialty Start Date End Date Ruth Matthews MD [address] [place] [address] PCP - General Internal Medicine 02/16/25 documented as of this encounter
--- OUTSIDE RECORDS SUMMARY | 2025-07-27 10:58 | XMS_ITS | Encounter Summary ---
Author Organization [facility] Address [address] [place] [address] Care Team Providers Care Surgical Resident Name Role Phone Ruth Matthews MD Primary Care Provider [phone] Encounter Details Date Type Department Care Team (Late st Contact Info) Description 02/16/2025 Lab Requisition [facility] - Main Lab [address] [facility] [place] [address] Ruth Matthews MD [address] [place] [address] Encounter for other general examination Social History [...] Res ult [facility] [address] [place] [address], [place] [phone] * (ABNORMAL) CBC auto differential (02/16/2025 6:58 AM EDT) WBC 8.0 4.8 - 10.8 K/mcL LAB HEMETOLOGY METHOD 02/16/2025 11:23 AM [facility] RBC 2.80(L) 4.50 - 5.50 M/[facility] LAB HEMETOLOGY METHOD 02/16/2025 11:23 AM [...] Res ult [facility] [address] [place] [address], [place] [phone] * (ABNORMAL) Magnesium (02/16/2025 6:58 AM EDT) Magnesium 1.8(L) 1.9 - 2.6 mg/dL LAB CHEMISTRY METHOD 02/16/2025 11:[address] [facility] Blood Venous blood specimen / Unknown Venipuncture / Unknown 02/16/2025 6:58 AM EDT 02/16/2025 9:41 AM EDT Ruth Matthews MD LAB BLOOD ORDERABLES Final Res ult [facility] [address] [place] [address], [place] [phone] * (ABNORMAL) Comprehensive metabolic panel (02/16/2025 6:58 [...] AM [facility] Comment:Calculation based on the [...] unit/L LAB CHEMISTRY METHOD 02/16/2025 11:10 AM [facility] Total Protein 7.1 6.0 - 8.0 g/dL LAB CHEMISTRY METHOD 02/16/2025 11:10 AM [facility] Albumin 2.7(L) 3.2 - 5.0 g/dL LAB CHEMISTRY METHOD 02/16/2025 11:10 AM [facility] Total Bilirubin 1.0 0.0 - 1.4 mg/dL LAB CHEMISTRY METHOD 02/16/2025 11:10 AM [facility] Blood Venous blood specimen / Unknown Venipuncture / Unknown 02/16/2025 6:58 AM EDT 02/16/2025 9:41 AM EDT us Ruth Matthews MD LAB BLOOD ORDERABLES Final Res ult [facility] [address] [place] [address], [place] [phone] documented in this encounter Visit Diagnoses Diagnosis Encounter for other general examination documented in this encounter Care Teams Surgical Resident Relationship Specialty Start Date End Date Ruth Matthews MD [address] [place] [address] PCP - General Internal Medicine 02/16/25 documented as of this encounter
--- OUTSIDE RECORDS SUMMARY | 2025-07-27 10:58 | XMS_ITS | Clinical Summary ---
Author Organization 299 [facility] Address [address] [place] [address] Phone Care Team Providers Care Mobile Crane Operator Name Role Phone Ruth Matthews MD Primary Care Provider [phone] Social History Tobacco Use Types Packs/Day Years [...] mmol/L LAB CHEMISTRY METHOD 02/23/2025 10:29 AM [facility] Potassium 4.7 3.5 - 5.5 mmol/L LAB CHEMISTRY METHOD 02/23/2025 10:29 AM [facility] Chloride 94(L) 96 - 110 mmol/L LAB CHEMISTRY METHOD 02/23/2025 10:29 AM [facility] CO2 26 21 - 32 mmol/L LAB CHEMISTRY METHOD 02/23/2025 10:29 AM [facility] Anion Gap 9 3 - 11 LAB CHEMISTRY METHOD 02/23/2025 10:29 AM [facility] Glucose 107(H) 70 - 100 mg/dL LAB CHEMISTRY METHOD 02/23/2025 10:29 AM [facility] BUN 26(H) 5 - 25 mg/dL LAB CHEMISTRY METHOD 02/23/2025 10:29 AM [facility] Creatinine 0.80 0.70 - 1.30 mg/dL LAB CHEMISTRY METHOD 02/23/2025 10:29 AM [facility] eGFR 93 >=60 mL/min/1. 73m2 LAB CHEMISTRY METHOD 02/23/2025 10:29 AM [facility] Comment:Calculation based on the Chronic Kidney Disease Epidemiology Collaboration (CKD-EPI) equation refit without adjustment for race. BUN/Creatinine Ratio 32.5 LAB CHEMISTRY METHOD 02/23/2025 10:29 AM [facility] Calcium 9.4 8.5 - 10.5 mg/dL LAB CHEMISTRY METHOD 02/23/2025 10:29 AM [facility] Blood Venous blood specimen / Unknown Venipuncture / Unknown 02/23/2025 5:18 AM EDT 02/23/2025 8:48 AM EDT us Ruth Matthews MD LAB BLOOD ORDERABLES Final Res ult [facility] [address] [place] [address], from Last 3 Months or Most Recently Relevant to Health Maintenance Insurance [facility] Care Teams Mobile Crane Operator Relationship Specialty Start Date End Date Ruth Matthews MD [address] [place] [address] PCP - General Internal Medicine 02/16/25
--- OUTSIDE RECORDS SUMMARY | 2025-07-27 10:59 | XMS_ITS | Encounter Summary ---
Author Organization [facility] Address [address] [place] [address] Phone Care Team Providers Care Manager It Training Name Role Phone Cornelia Membreno MD Primary Care Provider + [phone] Bakari Henson MD Unavailable [phone] Art Ley MD Unavailable Akira Malik MD Unavailable [phone] Cornelia Membreno MD Unavailable [phone] Cornelia Membreno MD Unavailable [phone] Kaitlin Greene OT Unavailable [phone] Kaitlin Greene OT Unavailable [phone] Encounter Details Date Type Department Care Team (Late st Contact Info) Description 10/30/2020 Ancillary Orders [facility],Outside Imaging [address] [place], [place] [id number] System, Provider Not In, [facility] [address] [address] Social History Tobacco Use Types Packs/Day Years [...] Description 12/05/2024 Procedure Pass Echo Lab [address] [place] [address] 08/28/2025 9:15 AM EST Office Visit [facility] [place] [facility] [address] [place] [address] [place] [address] Cornelia Membreno MD [address] [place] [address], [address] [place] [address] 10/29/2025 8:30 AM EST Appointment Echo Lab [address] [place] [address] Cindy Russell DNP [address] [place] [address], [address] [place] [address] 11/01/2025 9:10 AM EST Office Visit [facility] [address] [place] [address] [place] [address] Alejo Elam DO [address] [place] [address] 11/16/2025 11:40 AM EST Office Visit [facility] [address] [place] [address] 3rd Floor, [address] [place] [address] Win Zheng MD [address] [place] [address], [address] [address] documented as of this encounter Results * [...] as of this encounter Care Teams Manager It Training Relationship Specialty Start Date End Date Cornelia Membreno MD [address] [place] [address], [address] [place] [address] [email or web address] PCP - General 08/12/17 Bakari Henson MD [address] [place] [address] [email or web address] Historical LMR Provider 08/14/17 11/01/21 Art Ley MD [address] [place] [address] [email or web address] Historical LMR Provider 08/14/17 11/01/21 Akira Malik MD [address] [place] [address] Historical LMR Provider 08/14/17 11/01/21 Cornelia Membreno MD [address] [place] [address], [address] [place] [address] Insurance Assigned Provider 01/22/18 05/30/23 Cornelia Membreno MD [address] [place] [address], [address] [place] [address] Insurance Assigned Provider 01/28/25 Kaitlin Greene, OT [address] [place] [address] Transitions Speech Language SpecialistCommunity Outreach Coordinator Therapy 04/23/2504/24/25 Kaitlin Greene, OT [address] [place] [address] [email or web address] Transitions Speech Language SpecialistCommunity Outreach Coordinator Therapy 07/26/25 documented as of this encounter Additional Source Comments The information contained in this document represents components of the legal health record. It is not the complete legal health record.[facility]
--- OUTSIDE RECORDS SUMMARY | 2025-07-27 10:59 | XMS_ITS | Encounter Summary ---
Author Organization [facility] Address [address] [place] [address] Care Team Providers Care Pneumatic Tool Repairer Name Role Phone Ruth Matthews MD Primary Care Provider [phone] Encounter Details Date Type Department Care Team (Late st Contact Info) Description 02/20/2025 Lab Requisition [facility] - Main Lab [address] [place] [address] Ruth Matthews MD [address] [place] [address] Encounter for other general examination Social History [...] LAB CHEMISTRY METHOD 02/20/2025 11:24 AM EDT [facility] Blood Venous blood specimen / Unknown Venipuncture / Unknown 02/20/2025 7:07 AM EDT 02/20/2025 9:43 AM EDT Ruth Matthews MD LAB BLOOD ORDERABLES Final Res ult Performing Organization Address [facility]/ZIP Co de Phone Number [facility] [address] [place] [address], * (ABNORMAL) Sodium (02/20/2025 7:07 AM EDT) Sodium 128(L) 133 - 145 mmol/L LAB CHEMISTRY METHOD 02/20/2025 11:24 AM EDT [facility] Blood Venous blood specimen / Unknown Venipuncture / Unknown 02/20/2025 7:07 AM EDT 02/20/2025 9:43 AM EDT Ruth Matthews MD LAB BLOOD ORDERABLES Final Res ult Performing Organization Address [facility] Co de Phone Number [facility] [address] [place] [address], documented in this encounter Visit Diagnoses Diagnosis Encounter for other general examination documented in this encounter Care Teams Pneumatic Tool Repairer Relationship Specialty Start Date End Date Ruth Matthews MD [address] [place] [address] PCP - General Internal Medicine 02/16/25 documented as of this encounter
--- OUTSIDE RECORDS SUMMARY | 2025-07-27 10:59 | XMS_ITS | Encounter Summary ---
Author Organization [facility] Address [address] [place] [address] Care Team Providers Care Health Sciences Dean Name Role Phone Ruth Matthews MD Primary Care Provider Encounter Details Date Type Department Care Team (Late st Contact Info) Description 02/17/2025 Lab Requisition [facility] - Main Lab [address] [place] [address] Ruth Matthews MD [address] [place] [address] Encounter for other general examination Social History [...] for add-ons. 02/17/2025 12:01 PM EDT [facility] Comment:Auto resulted. Blood Venous blood specimen / Unknown 02/17/2025 5:51 AM EDT 02/17/2025 10:38 AM EDT us Ruth Matthews MD LAB BLOOD ORDERABLES Final Res ult Performing Organization Address City/[facility]/ZIP Co de Phone Number [facility] [address] [place] [address], [place] [phone] * (ABNORMAL) Osmolality (02/17/2025 5:51 AM EDT) [facility] Osmolality Alfredo 274(L) 280 - 300 mOsm/kg LAB CHEMISTRY METHOD 02/17/2025 11:47 AM EDT [facility] Blood Venous blood specimen / Unknown Venipuncture / Unknown 02/17/2025 5:51 AM EDT 02/17/2025 9:33 AM EDT us Ruth Matthews MD LAB BLOOD ORDERABLES Final Res ult Performing Organization Address [facility] Co de Phone Number [facility] [address] [place] [address], [place] [phone] * (ABNORMAL) Comprehensive metabolic panel (02/17/2025 5:51 AM EDT) [facility] Sodium 128(L) 133 - 145 mmol/L LAB [...] 11:31 AM [facility] Total Bilirubin 0.8 0.0 - 1.4 mg/dL LAB CHEMISTRY METHOD 02/17/2025 11:31 AM [facility] Blood Venous blood specimen / Unknown Venipuncture / Unknown 02/17/2025 5:51 AM EDT 02/17/2025 9:33 AM EDT us Ruth Matthews MD LAB BLOOD ORDERABLES Final Res ult [facility] [address] [place] [address], documented in this encounter Visit Diagnoses Diagnosis Encounter for other general examination documented in this encounter Care Teams Health Sciences Dean Relationship Specialty Start Date End Date Ruth Matthews MD [address] [place] [address] PCP - General Internal Medicine 02/16/25 documented as of this encounter
--- OUTSIDE RECORDS SUMMARY | 2025-07-27 10:59 | XMS_ITS | Encounter Summary ---
Author Organization [facility] Address [address] [place] [address] Phone Support Name Relationship Address Phone Amy Varela Emergency Contact [address] [place] [address] Keysha Cox Emergency Contact [address] [place] [address] Care Team Providers Care Serials Librarian Name Role Phone Cornleia Membreno MD Primary Care Provider [phone] Bakari Henson MD Unavailable [phone] Cornelia Membreno MD Unavailable [phone] Art Ley MD Unavailable Tony Senior HIGHWAY TRUCK DRIVER Unavailable Chino Sales SFDC SOLUTION ARCHITECT Unavailable [phone] Akira Malik MD Unavailable [phone] Nikunj Serna MD Unavailable [phone] Alejo Merlos MD Unavailable [phone] Jackelyn Phipps SFDC SOLUTION ARCHITECT Unavailable +[phone] Cornelia Membreno MD Unavailable [phone] Cornelia Membreno MD Unavailable [phone] Kaitlin Greene OT Unavailable [phone] Kaitlin Greene OT Unavailable [phone] Reason for Referral * Consultation (Routine) - Closed Specialty Diagnoses / Procedures Referred By Contac t Referred To Contact Cardiac Rehabilitation Diagnoses S/P aortic valve replacement Kaila Hendrix NP [address] [place] [address] Phone: tel: fax: [facility] [address] [place] [address] Phone: tel: Referral ID Status Reason Start Date Expiration Date Visits Re quested Visits Authorized [id number] Closed 08/16/2019 08/16/2020 1 1 Encounter Details Date Type Department Care Team (Late st Contact Info) Description 08/16/2019 Transcribe Orders Virtual Department [address] [place] [address] Kaila Hendrix NP [address] [place] [address] S/P aortic valve replacement (Primary Dx) Social [...] Info) Description 12/05/2024 Procedure Pass Echo Lab [place] [place] [address] 08/28/2025 9:15 AM EST Office Visit [address] [place] [address] Cornelia Membreno MD [address] [place] [address], [address] [place] [address] 10/29/2025 8:30 AM EST Appointment Echo Lab [address] [place] [address] Cindy Russell DNP 22 [facility], [address] [address] 11/01/2025 9:10 AM EST Office Visit [facility] [address] [place] [address] [place] [address] Alejo Elam DO [address] [place] [address] 11/16/2025 11:40 AM EST Office Visit [facility] [address] [place] [address] 3rd Floor, [address] [place] [address] Win Zheng MD [address] [place] [address] Scheduled Referrals Name Type Priority Associated Diagnoses Orde r Schedule Ambulatory referral to [facility] Cardiac Rehab Outpatient Referral Routine S/P [...] documented as of this encounter Care Teams Serials Librarian Relationship Specialty Start Date End Date Cornelia Membreno MD [address] [place] [address], [address] [place] [address] PCP - General 08/12/17 Bakari Henson MD [address] [place] [address] [email or web address] Historical LMR Provider 08/14/17 11/01/21 Cornelia Membreno MD [address] [place] [address], [address] [address] [email or web address] Historical LMR Provider 08/14/17 Art Ley MD [address] [place] [address] [email or web address] Historical LMR Provider 08/14/17 11/01/21 Tony Senior, HIGHWAY TRUCK DRIVER [address] [place] [address] 2_[place] [address] [email or web address] Historical LMR Provider 08/14/17 02/06/20 Chino Sales, SFDC SOLUTION ARCHITECT [address] [place] [address], [address] [place] [address] Historical LMR Provider 08/14/17 02/06/20 Akira Malik MD [address] [place] [address] Historical LMR Provider 08/14/17 11/01/21 Nikunj Serna MD [address] [place] [address], [address] [place] [address] Historical LMR Provider 08/14/17 02/06/20 Alejo Merlos MD [address] [place] [address], [address] [place] [address] Historical LMR Provider 08/14/17 Jackelyn Phipps CNP [address] [place] [address], [address] [place] [address] Historical LMR Provider 08/14/1702/05 Cornelia Membreno MD [address] [place] [address], [address] [address] Insurance Assigned Provider 01/22/18 05/30/23 Cornelia Membreno MD [address] [place] [address], [address] [place] [address] Insurance Assigned Provider 01/28/25 Kaitlin Greene, OT [address] [place] [address] Transitions Entry Level Sales AssociatePolice Stenographer Therapy 04/23/25 04/24/25 Kaitlin Greene, OT [address] [place] [address] [email or web address] Transitions Entry Level Sales AssociatePolice Stenographer Therapy 07/26/25 documented as of this encounter Additional Source Comments The information contained in this document represents components of the legal health record. It is not the complete legal health record.[facility]
--- OUTSIDE RECORDS SUMMARY | 2025-07-27 10:59 | XMS_ITS | Encounter Summary ---
Author Organization [facility] Address [address] [place] [address] Phone Support Name Relationship Address Phone Amy Varela Emergency Contact [address] [place] [address] Keysha Cox Emergency Contact [address] [place] [address] Care Team Providers Care Director Industrial Museum Name Role Phone Cornelia Membreno MD Primary Care Provider + Bakari Henson MD Unavailable [phone] Cornelia Membreno MD Unavailable +[phone] Art Ley MD Unavailable Tony Senior GREY GOODS MARKER Unavailable Chino Sales IT TECHNICAL SUPPORT SPECIALIST Unavailable [phone] Akira Malik MD Unavailable [phone] Nikunj Serna MD Unavailable [phone] Alejo Merlos MD Unavailable [phone] Jackelyn Phipps IT TECHNICAL SUPPORT SPECIALIST Unavailable +[phone] Cornelia Membreno MD Unavailable +[phone] Cornelia Membreno MD Unavailable [phone] Kaitlin Greene OT Unavailable [phone] Kaitlin Greene OT Unavailable [phone] Reason for Referral * Physical Therapy (Urgent) - Closed Specialty Diagnoses / Procedures Referred By Contac t Referred To Contact Physical Therapy Diagnoses Encounter for rehabilitation System, Provider Not In, [facility] [address] [address] [facility] [address] [place] [address] Phone: tel: Referral ID Status Reason Start Date Expiration Date Visits Re quested Visits Authorized [id number] Closed 09/09/2017 10/24/2018 99 99 Encounter Details Date Type Department Care Team (Latest Contact Info) Description 09/09/2017 Transcribe Orders [facility] [address] [place] [address] Cornelia Membreno MD [address] [place] [address], [address] [place] [address] [email or web address] Encounter for rehabilitation (Primary Dx) Social [...] Info) Description 12/05/2024 Procedure Pass Echo Lab [address] [place] [address] 08/28/2025 9:15 AM EST Office Visit [facility] [address] [place] [address] [place] [address] Cornelia Membreno MD [address] [place] [address], [address] [place] [address] [email or web address] 10/29/2025 8:30 AM EST Appointment Echo Lab [address] [place] [address] Cindy Russell, MICHELLE [address] [place] [address], [address] [place] [address] 11/01/2025 9:10 AM EST Office Visit [facility] [address] [place] [address] Alejo Elam DO [address] [place] [address] 11/16/2025 11:40 AM EST Office Visit [facility] 3rd Floor, [address] [place] [address] Win Zheng MD [address] [place] [address] Scheduled Referrals Name Type Priority Associated Diagnoses Orde r Schedule Ambulatory referral to [facility] Physical Therapy Outpatient Referral Routine [...] documented as of this encounter Care Teams Director Industrial Museum Relationship Specialty Start Date End Date Cornelia Membreno MD [address] [place] [address], [address] [place] [address] PCP - General 08/12/17 Bakari Henson MD [address] [place] [address] [email or web address] Historical LMR Provider 08/14/17 11/01/21 Cornelia Membreno MD [address] [place] [address], [address] [place] [address] Historical LMR Provider 08/14/17 Art Ley MD [address] [place] [address] [email or web address] Historical LMR Provider 08/14/17 11/01/21 Tony Senior NP [address] [place] [address] 2_[place] [address] [email or web address] Historical LMR Provider 08/14/17 02/06/20 Chino Sales CNP [address] [place] [address], [address] [place] [address] Historical LMR Provider 08/14/17 02/06/20 Akira Malik MD [address] [place] [address], [address] [place] [address] Historical LMR Provider 08/14/17 11/01/21 Nikunj Serna MD [address] [place] [address], [address] [place] [address] Historical LMR Provider 08/14/17 02/06/20 Alejo Merlos MD [address] [facility], [address] [place] [address] Historical LMR Provider 08/14/17 Jackelyn Phipps CNP [address] [facility], [address] [place] [address] Historical LMR Provider 08/14/1702/05 Cornelia Membreno MD [address] [facility], [address] [place] [address] Insurance Assigned Provider 01/22/18 05/30/23 Cornelia Membreno MD [address] [place] [address], [address] [place] [address] Insurance Assigned Provider 01/28/25 Kaitlin Greene, OT [address] [place] [address] Transitions Painter OrdnanceScale Shooter Therapy 04/23/25 04/24/25 Kaitlin Greene, OT [address] [place] [address] Transitions Painter OrdnanceScale Shooter Therapy 07/26/25 documented as of this encounter Additional Source Comments The information contained in this document represents components of the legal health record. It is not the complete legal health record.[facility]
--- OUTSIDE RECORDS SUMMARY | 2025-07-27 10:59 | XMS_ITS | Encounter Summary ---
Author Organization [facility] Address [address] [place] [address] Care Team Providers Care Upper Leather Cutter Name Role Phone Ruth Matthews MD Primary Care Provider [phone] Encounter Details Date Type Department Care Team (Late st Contact Info) Description 02/17/[address] [facility] - Main Lab [address] [facility] [place] [address] Ruth Matthews MD [address] [place] [address] Encounter for other general examination Social History [...] LAB CHEMISTRY METHOD 02/17/2025 11:38 AM EDT [facility] Urine Urine specimen obtained by clean catch procedure / Unknown 02/17/2025 4:00 AM EDT 02/17/2025 10:23 AM EDT us Ruth Matthews MD LAB URINE ORDERABLES Final Res ult Performing Organization Address [facility]/ZIP Co de Phone Number [facility] [address] [place] [address], [place] [phone] * Sodium, urine, random (02/17/2025 4:00 AM EDT) Sodium, Ur 23 mmol/L LAB CHEMISTRY METHOD 02/17/2025 11:23 AM EDT [facility] Urine Urine specimen obtained by clean catch procedure / Unknown 02/17/2025 4:00 AM EDT 02/17/2025 10:23 AM EDT us Ruth Matthews MD LAB URINE ORDERABLES Final Res ult Performing Organization Address [facility] Co de Phone Number [facility] [address] [place] [address], [place] [phone] documented in this encounter Visit Diagnoses Diagnosis Encounter for other general examination documented in this encounter Care Teams Upper Leather Cutter Relationship Specialty Start Date End Date Ruth Matthews MD [address] [place] [address] PCP - General Internal Medicine 02/16/25 documented as of this encounter
--- OUTSIDE RECORDS SUMMARY | 2025-07-27 10:59 | XMS_ITS | Encounter Summary ---
Author Organization [facility] Address [address] [place] [address] Phone Support Name Relationship Address Phone Amy Varela Emergency Contact [address] [place] [address] Keysha Cox Emergency Contact [address] [place] [address] Care Team Providers Care Ice Carver Name Role Phone Cornelia Membreno MD Primary Care Provider [phone] Bakari Henson MD Unavailable [phone] Cornelia Membreno MD Unavailable [phone] Art Ley MD Unavailable Tony Senior TRANSFER AND PUMPHOUSE OPERATOR Unavailable [phone] Chino Sales MEDICAL RECORD TECHNICIAN Unavailable [phone] Akira Malik MD Unavailable [phone] Nikunj Serna MD Unavailable [phone] Alejo Merlos MD Unavailable [phone] Jackelyn Phipps MEDICAL RECORD TECHNICIAN Unavailable [phone] Cornelia Membreno MD Unavailable [phone] Cornelia Membreno MD Unavailable [phone] Kaitlin Greene OT Unavailable [phone] Kaitlin Greene OT Unavailable [phone] Encounter Details Date Type Department Care Team (Latest Contact Info) Description 08/22/2019 Transcribe Orders Non-Invasive Cardiology [address] [place] [address] Colton Farr MD [address] [place] [address] [place] [address] [email or web address] Essential hypertension (Primary Dx) Social History [...] Description 12/05/2024 Procedure Pass Echo Lab [address] [place] [address] 08/28/2025 9:15 AM EST Office Visit [facility] [place] [facility] [address] [place] [address] [place] [address] Cornelia Membreno MD [address] [place] [address], [address] [place] [address] 10/29/2025 8:30 AM EST Appointment Echo Lab [address] [place] [address] Cindy Russell, MICHELLE [address] [place] [address], [address] [place] [address] 11/01/2025 9:10 AM EST Office Visit [facility] [address] [place] [address] [place] [address] Alejo Elam DO [address] [place] [address] [email or web address] 11/16/2025 11:40 AM EST Office Visit [facility] [address] [facility] 3rd Floor, [address] [place] [address] Win Zheng MD [address] [facility], [address] [place] [address] [email or web address] documented as of this encounter Results * ECG 12-LEAD (08/22/2019 9:46 AM EDT) Ventricular Rate EKG/MIN 63 BPM [facility] Atrial Rate 63 BPM [facility] VT Interval 128 ms [facility] QRS Duration 118 ms [facility] QT Interval 466 ms [facility] QTC Interval 476 ms [facility] P [place] 56 degrees [facility] R Wave [place] 100 degrees [facility] T Wave [place] 251 degrees [facility] 08/22/2019 9:46 AM EDT [...] Inferior leads Confirmed by WIN ZHENG MD ([id number]) on 08/22/2019 1:39:11 PM us Colton Farr [...] EST CoV-Risk Comment:Per Ambulatory Triage Form 10/06/2022 10/06/202210/172022 1:24 AM EST CDiff-Risk 07/17/2024 07/17/2024 07/17/2024 8:54 PM EDT CDiff-Risk 07/27/2024 07/27/2024 07/27/2024 8:21 PM EDT Assessment Noted Time PHQ-2 Depression Total Score: 0 05/25/20 8:57 AM EDT documented as of this encounter Care Teams Ice Carver Relationship Specialty Start Date End Date Cornelia Membreno MD [address] [place] [address], [address] [place] [address] PCP - General 08/12/17 Bakari Henson MD [address] [place] [address] [email or web address] Historical LMR Provider 08/14/17 11/01/21 Cornelia Membreno MD [address] [place] [address], [address] [place] [address] [email or web address] Historical LMR Provider 08/14/17 Art Ley MD [address] [place] [address] [email or web address] Historical LMR Provider 08/14/17 11/01/21 Tony Senior, GAMAL [address] [place] [address] 2[facility] [address] [email or web address] Historical LMR Provider 08/14/17 02/06/20 Chino Sales, TOSHIA [address] [place] [address], [address] [place] [address] Historical LMR Provider 08/14/17 02/06/20 Akira Malik MD [address] [place] [address], [address] [place] [address] Historical LMR Provider 08/14/17 11/01/21 Nikunj Serna MD [address] [place] [address], [address] [place] [address] Historical LMR Provider 08/14/17 02/06/20 Alejo Merlos MD [address] [place] [address], [address] [place] [address] Historical LMR Provider 08/14/17 Jackelyn Phipps CNP [address] [place] [address], [address] [place] [address] Historical LMR Provider 08/14/1702/05 Cornelia Membreno MD [address] [place] [address], [address] [place] [address] Insurance Assigned Provider 01/22/18 05/30/23 Cornelia Membreno MD [address] [place] [address], [address] [place] [address] Insurance Assigned Provider 01/28/25 Kaitlin Greene, [address] [address] [email or web address] Transitions Justice Of The PeaceBricklayer Apprentice Therapy 04/23/25 04/24/25 Kaitlin Greene, OT [address] [place] [address] [email or web address] Transitions Justice Of The PeaceBricklayer Apprentice Therapy 07/26/25 documented as of this encounter Additional Source Comments The information contained in this document represents components of the legal health record. It is not the complete legal health record.[facility]
--- OUTSIDE RECORDS SUMMARY | 2025-07-27 10:59 | XMS_ITS | Encounter Summary ---
Author Organization [facility] Address [address] [place] [address] Care Team Providers Care Club Attendant Name Role Phone Ruth Matthews MD Primary Care Provider Encounter Details Date Type Department Care Team (Late st Contact Info) Description 02/19/2025 Lab Requisition [facility] - Main Lab [address] [facility] [place] [address] Ruth Matthews MD [address] [place] [address] Encounter for other general examination Social History [...] CBC auto differential (02/19/2025 6:29 AM EDT) [facility] Signature WBC 6.4 4.8 - 10.8 K/mcL LAB HEMETOLOGY METHOD 02/19/2025 11:08 AM [facility] RBC 3.00(L) 4.50 - 5.50 M/mcL LAB HEMETOLOGY METHOD 02/19/2025 11:08 AM [facility] Hemoglobin 9.1(L) 13.5 - 17.5 g/dL LAB HEMETOLOGY METHOD 02/19/2025 11:08 AM [facility] Hematocrit 28.3(L) 42.0 - 54.0 % LAB HEMETOLOGY METHOD 02/19/2025 11:08 AM [facility] MCV 94.6 79.0 - 98.0 FL LAB HEMETOLOGY METHOD 02/19/2025 11:08 AM [facility] MCH 30.4 27.0 - 32.0 pcg LAB HEMETOLOGY METHOD 02/19/2025 11:08 AM [facility] MCHC 32.2 32.0 - 37.0 g/dL LAB HEMETOLOGY METHOD 02/19/2025 11:08 AM [facility] RDW 14.1 11.0 - 15.0 % LAB HEMETOLOGY METHOD 02/19/2025 11:08 AM [facility] Platelets 591(H) 130 - 400 K/mcL LAB HEMETOLOGY METHOD 02/19/2025 11:08 AM [facility] MPV 9.3 7.0 - 11.0 FL LAB HEMETOLOGY METHOD 02/19/2025 11:08 AM [facility] NRBC 0.0 <1.0 % LAB HEMETOLOGY METHOD 02/19/2025 11:08 AM [facility] NRBC Absolute 0.00 <0.10 K/mcL LAB HEMETOLOGY METHOD 02/19/2025 11:08 AM [facility] Neutrophils Relative 49.1 % LAB HEMETOLOGY METHOD 02/19/2025 11:08 AM [facility] Lymphocytes Relative 21.6 % LAB HEMETOLOGY METHOD 02/19/2025 11:08 AM [facility] Monocytes Relative 23.1 % LAB HEMETOLOGY METHOD 02/19/2025 11:08 AM [facility] Eosinophils Relative 4.9 % LAB HEMETOLOGY METHOD 02/19/2025 11:08 AM [facility] Basophils Relative 1.1 % LAB HEMETOLOGY METHOD 02/19/2025 11:08 AM [facility] Immature Granulocytes Relative 0.2 % LAB HEMETOLOGY METHOD 02/19/2025 11:08 AM [facility] Neutrophils Absolute 3.12 1.50 - 7.00 K/mcL LAB HEMETOLOGY METHOD 02/19/2025 11:08 AM [facility] Lymphocytes Absolute 1.37 1.00 - 5.00 K/mcL LAB HEMETOLOGY METHOD 02/19/2025 11:08 AM [facility] Monocytes Absolute 1.47(H) 0.20 - 1.00 K/mcL LAB HEMETOLOGY METHOD 02/19/2025 11:08 AM [facility] Eosinophils Absolute 0.31 0.00 - 0.50 K/mcL LAB HEMETOLOGY METHOD 02/19/2025 11:08 AM [facility] Basophils Absolute 0.07 0.00 - 0.20 K/mcL LAB HEMETOLOGY METHOD 02/19/2025 11:08 AM [facility] Immature Granulocytes Absolute 0.01 0.00 - 0.03 K/mcL LAB HEMETOLOGY METHOD 02/19/2025 11:08 AM EDT [facility] Blood Venous blood specimen / Unknown Venipuncture / Unknown 02/19/2025 6:29 AM EDT 02/19/2025 10:04 AM EDT Ruth Matthews MD LAB BLOOD ORDERABLES Final Res ult Performing Organization Address City/Va Hospital/ZIP Co de Phone Number [facility] [address] [place] [address], [place] [phone] * (ABNORMAL) Sedimentation rate (02/19/2025 6:29 AM EDT) Pathologist [facility] Sed Rate 80(H) 0 - 20 mm/hr LAB HEMETOLOGY METHOD 02/19/2025 11:22 AM EDT [facility] Blood Venous blood specimen / Unknown Venipuncture / Unknown 02/19/2025 6:29 AM EDT 02/19/2025 10:04 AM EDT Ruth Matthews MD LAB BLOOD ORDERABLES Final Res ult Performing Organization Address [facility] Hospital/[facility] Co de Phone Number [facility] [address] [place] [address], [place] [phone] * (ABNORMAL) C-reactive protein (02/19/2025 6:29 AM EDT) C-Reactive Protein 7.99(H) <=0.50 mg/dL LAB CHEMISTRY METHOD 02/19/2025 1:47 PM EDT [facility] Blood Venous blood specimen / Unknown Venipuncture / Unknown 02/19/2025 6:29 AM EDT 02/19/2025 10:04 AM EDT Ruth Matthews MD LAB BLOOD ORDERABLES Final Res ult Performing Organization Address City/Va Hospital/ZIP Co de Phone Number [facility] [address] [place] [address], [place] [phone] * Creatine kinase (02/19/2025 6:29 AM EDT) [facility] Total CK 149 22 - 269 unit/L LAB CHEMISTRY METHOD 02/19/2025 1:47 PM EDT [facility] Blood Venous blood specimen / Unknown Venipuncture / Unknown 02/19/2025 6:29 AM EDT 02/19/2025 10:04 AM EDT us Ruth Matthews MD LAB BLOOD ORDERABLES Final Res ult [facility] [address] [place] [address], [place] [phone] * (ABNORMAL) Basic metabolic panel (02/19/2025 6:29 AM EDT) [facility] Sodium 127(L) 133 - 145 mmol/L LAB CHEMISTRY METHOD 02/19/2025 1:47 PM [facility] Potassium 4.7 3.5 - 5.5 mmol/L LAB CHEMISTRY METHOD 02/19/2025 1:47 PM [facility] Chloride 91(L) 96 - 110 mmol/L LAB CHEMISTRY METHOD 02/19/2025 1:47 PM [facility] CO2 23 21 - 32 mmol/L LAB CHEMISTRY METHOD 02/19/2025 1:47 PM [facility] Anion Gap 13(H) 3 - 11 LAB CHEMISTRY METHOD 02/19/2025 1:47 PM T [facility] Glucose 133(H) 70 - 100 mg/dL LAB CHEMISTRY METHOD 02/19/2025 1:47 PM [facility] BUN 20 5 - 25 mg/dL LAB CHEMISTRY METHOD 02/19/2025 1:47 PM [facility] Creatinine 1.08 0.70 - 1.30 mg/dL LAB CHEMISTRY METHOD 02/19/2025 1:47 PM EDT [facility] eGFR 72 >=60 mL/min/1. 73m2 LAB CHEMISTRY METHOD 02/19/2025 1:47 PM EDT [facility] Comment:Calculation based on the Chronic Kidney Disease Epidemiology Collaboration (CKD-EPI) equation refit without adjustment for race. BUN/Creatinine Ratio 18.5 LAB CHEMISTRY METHOD 02/19/2025 1:47 PM EDT [facility] Calcium 9.2 8.5 - 10.5 mg/dL LAB CHEMISTRY METHOD 02/19/2025 1:47 PM EDT [facility] Blood Venous blood specimen / Unknown Venipuncture / Unknown 02/19/2025 6:29 AM EDT 02/19/2025 10:04 AM EDT us Ruth Matthews MD LAB BLOOD ORDERABLES Final Res ult [facility] [address] [place] [address], documented in this encounter Visit Diagnoses Diagnosis Encounter for other general examination documented in this encounter Care Teams Club Attendant Relationship Specialty Start Date End Date Ruth Matthews MD [address] [place] [address] PCP - General Internal Medicine 02/16/25 documented as of this encounter
--- OUTSIDE RECORDS SUMMARY | 2025-07-27 11:00 | XMS_ITS | Encounter Summary ---
Author Organization [facility] Address [address] [place] [address] [place] [address] Phone Support Name Relationship Address Phone Amy Campbell Benjiangela Emergency Contact [address] [place] [address] Keysha Cox Emergency Contact [address] [place] [address] Care Team Providers Care Logistics Planner Name Role Phone Cornelia Membreno MD Primary Care Provider + [phone] Cornelia Membreno MD Unavailable [phone] Kaitlin Greene OT Unavailable [phone] Kaitlin Greene OT Unavailable [phone] Encounter Details Date Type Department Care Team (Late st Contact Info) Description 07/14/2024 Procedure Pass Echo Lab [address] [place] [address] Social History Tobacco Use Types Packs/Day Years [...] Description 12/05/2024 Procedure Pass Echo Lab [address] [place] [address] 08/28/2025 9:15 AM EST Office Visit [facility] [address] [place] [address] [place] [address] Cornelia Membreno MD [address] [facility], [address] [place] [address] 10/29/2025 8:30 AM EST Appointment Echo Lab [address] [place] [address] Cindy Russell DNP [address] [facility], [address] [address] 11/01/2025 9:10 AM EST Office Visit [facility] [address] [place] [address] Alejo Elam DO [address] [place] [address] 11/16/2025 11:40 AM EST Office Visit [facility] [address] [place] [address] 3rd Floor, [address] [address] Win Zheng MD [address] [place] [address], [address] [address] documented as of this encounter Visit Diagnoses Not on filedocumented in this encounter Additional Health Concerns Infection Onset Date Last Indicated Resolved Time CDiff-Risk 07/17/2024 07/17/2024 07/17/2024 8:54 PM EDT CDiff-Risk 07/27/2024 07/27/2024 07/27/2024 8:21 PM EDT Assessment Noted Time PHQ-2 Depression Total Score: 0 04/17/20 24 2:22 PM EDT documented as of this encounter Care Teams Logistics Planner Relationship Specialty Start Date End Date Cornelia Membreno MD [address] [place] [address], [address] [place] [address] PCP - General 08/12/17 Cornelia Membreno MD [address] [place] [address], [address] [place] [address] Insurance Assigned Provider 01/28/25 Kaitlin Greene, OT [address] [place] [address] Transitions Nursing Clinical DirectorVeterinarian Helper Therapy 04/23/2504/24/25 Kaitlin Greene, OT [address] [place] [address] [email or web address] Transitions Nursing Clinical DirectorVeterinarian Helper Therapy 07/26/25 documented as of this encounter Additional Source Comments The information contained in this document represents components of the legal health record. It is not the complete legal health record.[facility]
--- OUTSIDE RECORDS SUMMARY | 2025-07-27 11:00 | XMS_ITS | Encounter Summary ---
Author Organization [facility] Address [address] [place] [address] [place] [address] Phone Support Name Relationship Address Phone Amy Campbell Micnataliia Emergency Contact [address] [place] [address] Keysha Cox Emergency Contact [address] [place] [address] Care Team Providers Care Waistline Joiner Overlock Name Role Phone Cornelia Membreno MD Primary Care Provider + [phone] Cornelia Membreno MD Unavailable [phone] Kaitlin Greene OT Unavailable [phone] Kaitlin Greene OT Unavailable [phone] Encounter Details Date Type Department Care Team (Late st Contact Info) Description 02/22/2025 Telephone [facility] [address] [place] [address] Cornelia Membreno MD [address] [facility], [address] [place] [address] [email or web address] Social History Tobacco Use Types Packs/Day Years [...] Description 12/05/2024 Procedure Pass Echo Lab [address] [place] [address] 08/28/2025 9:15 AM EST Office Visit [facility] [address] [place] [address] [place] [address] Cornelia Membreno MD [address] [place] [address], [address] [place] [address] 10/29/2025 8:30 AM EST Appointment Echo Lab [address] [place] [address] Cindy Russell DNP [address] [place] [address], [address] [place] [address] 11/01/2025 9:10 AM EST Office Visit [facility] [address] [place] [address] [place] [address] Alejo Elam DO [address] [place] [address] 11/16/2025 11:40 AM EST Office Visit [facility] [address] [place] [address] 3rd Floor, [address] [place] [address] Win Zheng MD [address] [place] [address], [address] [address] documented as of this encounter Visit Diagnoses Not on filedocumented in this encounter Additional Health Concerns Assessment Noted Time PHQ-2 Depression Total Score: 0 04/17/20 24 2:22 PM EDT documented as of this encounter Care Teams Waistline Joiner Overlock Relationship Specialty Start Date End Date Cornelia Membreno MD [address] [facility], [address] [place] [address] PCP - General 08/12/17 Cornelia Membreno MD [address] [facility] [place] [address] Insurance Assigned Provider 01/28/25 Kaitlin Greene, OT [address] [place] [address] Transitions Epic Ambulatory SpecialistsShip Worker Therapy 04/23/2504/24/25 Kaitlin Greene, OT [address] [place] [address] Transitions Epic Ambulatory SpecialistsShip Worker Therapy 07/26/25 documented as of this encounter Additional Source Comments The information contained in this document represents components of the legal health record. It is not the complete legal health record.[facility]
--- OUTSIDE RECORDS SUMMARY | 2025-07-27 11:00 | XMS_ITS | Encounter Summary ---
Author Organization [facility] Address [address] [place] [address] [place] [address] Phone Care Team Providers Care Chair Mechanic Name Role Phone Cornelia Membreno MD Primary Care Provider + [phone] Cornelia Membreno MD Unavailable [phone] Kaitlin Greene OT Unavailable [phone] Kaitlin Greene OT Unavailable [phone] Encounter Details Date Type Department Care Team (Late st Contact Info) Description 09/11/2024 Procedure Pass [facility] Endoscopy Admitting Dept Virtual Department [address] [place] [address] Social History Tobacco Use Types Packs/Day Years [...] 07/26/2024 Are you denied basic needs s [facility] as food, clothing, or medical care? [...] Info) Description 12/05/2024 Procedure Pass Echo Lab [address] [place] [address] 08/28/2025 9:15 AM EST Office Visit [facility] [address] [place] [address] [place] [address] Cornelia Membrneo MD [address] [place] [address], [address] [address] 10/29/2025 8:30 AM EST Appointment Echo Lab [address] [place] [address] Cindy Russell DNP [address] [place] [address] 11/01/2025 9:10 AM EST Office Visit [facility] [address] [place] [address] [place] [address] Alejo Elam DO [address] [place] [address] 11/16/2025 11:40 AM EST Office Visit [facility] [address] [place] [address] 3rd Floor, [address] [address] Win Zheng MD [address] [place] [address] documented as of this encounter Visit Diagnoses Not on filedocumented in this encounter Additional Health Concerns Assessment Noted Time PHQ-2 Depression Total Score: 0 04/17/20 24 2:22 PM EDT documented as of this encounter Care Teams Chair Mechanic Relationship Specialty Start Date End Date Cornelia Membreno MD [address] [place] [address], [address] [place] [address] PCP - General 08/12/17 Cornelia Membreno MD [address] [place] [address], [address] [place] [address] Insurance Assigned Provider 01/28/25 Kaitlin Greene, OT [address] [place] [address] Transitions Supervisor Elementary EducationSpring Assembler Supervisor Therapy 04/23/2504/24/25 Kaitlin Greene, OT [address] [place] [address] Transitions Supervisor Elementary EducationSpring Assembler Supervisor Therapy 07/26/25 documented as of this encounter Additional Source Comments The information contained in this document represents components of the legal health record. It is not the complete legal health record.[facility]
--- OUTSIDE RECORDS SUMMARY | 2025-07-27 11:00 | XMS_ITS | Clinical Summary ---
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 NRBC 0.00 0.00 K/uL [facility] DIFF METHOD Auto [facility] NEUTS 57.6 48.0 - 76.0 % [facility] LYMPHS 25.0 18.0 - 41.0 % [facility] MONOS 14.1(H) 4.0 - 11.0 % [facility] EOS 2.0 0.0 - 5.0 % [facility] BASOS 0.8 0.0 - 1.5 % [facility] Granulocytes, immature (%) 0.5 0.0 - 0.9 % [facility] ABSOLUTE NEUTS 3.39 1.92 - 7.60 K/uL [facility] ABSOLUTE LYMPHS 1.47 0.72 - 4.10 K/uL [facility] ABSOLUTE MONOS 0.83 0.16 - 1.10 K/uL [facility] ABSOLUTE EOS 0.12 0.00 - 0.50 K/uL [facility] ABSOLUTE BASOS 0.05 0.00 - 0.15 K/uL [facility] Granulocytes, immature 0.03 0.00 - 0.09 K/uL [facility] Blood 07/26/2025 5:26 AM EDT 07/26/2025 6:17 AM EDT us Summer A Belizean DO LAB BLOOD ORDERABLES Final Re sult Performing Organization Address City/[facility]/ZIP Co de Phone Number [address] [address] * Uric acid (07/26/2025 5:26 AM EDT) URIC ACID 5.0 2.4 - 7.0 mg/dL [facility] 07/26/2025 5:26 AM EDT 07/26/2025 6:17 AM EDT Summer A Belizean DO LAB BLOOD ORDERABLES Final Re sult Performing Organization Address City/[facility]/ZIP Co de Phone Number [address] [address] * TSH (07/26/2025 5:26 AM EDT) TSH 2.21 0.27 - 4.20 uIU/mL [facility] 07/26/2025 5:26 AM EDT 07/26/2025 6:17 AM EDT Summer A Belizean DO LAB BLOOD ORDERABLES Final Re sult Performing Organization Address City/[facility]/ZIP Co de Phone Number [address] [address] * Phosphorus (07/26/2025 5:26 AM EDT) Only the most recent of2 resultswithin the time period is included. PHOSPHORUS 4.3 2.7 - 4.5 mg/dL [facility] Blood 07/26/2025 5:26 AM EDT 07/26/2025 6:17 AM EDT [facility] [place] [facility] LAB BLOOD ORDERABLES Final Re sult Performing Organization Address [facility] Co de Phone Number [address] [address] * Magnesium (07/26/2025 5:26 AM EDT) Only the most recent of3 resultswithin the time period is included. Pathologist [facility] MAGNESIUM 1.9 1.6 - 2.6 mg/dL [facility] Blood 07/26/2025 5:26 AM EDT 07/26/2025 6:17 AM EDT [facility] A Belizean DO LAB BLOOD ORDERABLES Final Re sult Performing Organization Address City/[facility] Co de Phone Number [address] [address] * Ethanol, blood (07/25/2025 7:46 PM EDT) Pathologist [facility] ETHANOL <10 <10 mg/dL [facility] Blood 07/25/2025 7:46 PM EDT 07/25/2025 7:49 PM EDT us Summer A Belizean DO LAB BLOOD ORDERABLES Final Re sult Performing Organization Address [facility] Co de Phone Number [address] [address] * TSH with reflex (07/25/2025 7:46 PM EDT) Only the most recent of2 resultswithin the time period is included. TSH 1.67 0.27 - 4.20 uIU/mL [facility] Blood 07/25/2025 7:46 PM EDT 07/25/2025 7:48 PM EDT [facility] [place] DO LAB BLOOD ORDERABLES Final Re sult Performing Organization Address [facility] de Phone Number [address] [address] * (ABNORMAL) Osmolality, serum (07/25/2025 7:46 PM EDT) Only the most recent of2 resultswithin the time period is included. OSMOLALITY 261(L) 289 - 308 mOsm/kg water [facility] Blood 07/25/2025 7:46 PM EDT 07/25/2025 7:48 PM EDT us Summer A Belizean DO LAB BLOOD ORDERABLES Final Re sult Performing Organization Address [facility] de Phone Number [address] [address] * US Upper Extremity Veins Duplex (Left) (07/25/2025 4:17 PM EDT) Anatomical Region Laterality Modality Hip Left, Thigh Left, Knee L eft, Leg Left, Ankle Left, Foot Left Ultrasound 07/25/2025 5:11 PM EDT Impressions 07/25/2025 5:39 PM EDT No deep vein thrombosis in the visualized veins of the left upper extremity. ATTESTATION: Mayda Hall as teaching physician, have reviewed the images for this case and if necessary edited the report originally created by Beto Smith. Narrative 07/25/2025 5:39 PM EDT US UPPER EXTREMITY VEINS DUPLEX (LEFT) Referring clinician's provided indication for this examination in [facility]: Edema TECHNIQUE: Upper extremity venous ultrasound with [...] clinician's provided indication for this examination in [facility]:Edema TECHNIQUE: Upper extremity venous ultrasound with color [...] visualized veins of the left upperextremity. ATTESTATION: Mayda Hall as teaching physician, have reviewed theimages for this case and if necessary edited the report originally createdby Beto Smith. Kamryn Guerra PA-C CV US VASCULAR Final Result * ECG 12-LEAD (07/25/2025 4:16 PM EDT) Only the most recent of2 resultswithin the time period is included. Ventricular Rate EKG/MIN 90 BPM [facility] Atrial Rate 90 BPM [facility] MI Interval 234 ms [facility] QRS Duration 150 ms [facility] QT Interval 394 ms [facility] QTC Interval 481 ms [facility] P [place] 97 degrees [facility] R Wave [place] -82 degrees [facility] T Wave [place] 90 degrees [facility] 07/25/2025 4:16 PM EDT 07/26/2025 7:43 AM EDT Narrative [facility] - 07/26/2025 7:43 AM EDT Atrial-sensed ventricular-paced rhythm with prolonged AV conduction Abnormal ECG When compared with ECG of 18-Jul-2025 20:36, Vent. rate has increased by 18 bpm Confirmed by Win Zheng ([id number]) on 07/26/2025 7:43:42 AM us Kamryn Guerra PA-C ECG ORDERABLES Final Result [facility] * Hold Specimen In Blood Bank (07/25/2025 3:39 PM EDT) Expiration Date of Sample 07/28/2025 ,2359 [facility] Resulting Agency [facility] Blood 07/25/2025 3:39 PM EDT 07/25/2025 3:55 PM EDT Kamryn Guerra PA-C BLOOD BANK TEST ORDER SHANICE Final Result [facility] [address] [place] [address] * (ABNORMAL) LFTs (hepatic panel) (07/25/2025 3:39 PM EDT) Only the most recent of2 resultswithin the time period is included. ALKALINE PHOSPHATASE 95 39 - 117 U/L [facility] TOTAL BILIRUBIN 3.6(H) 0.0 - 1.2 mg/dL [facility] DIRECT BILIRUBIN 0.8(H) 0.0 - 0.2 mg/dL [facility] Bilirubin (Indirect) 2.8(H) 0 - 1.5 mg/dL [facility] AST 37 0 - 37 U/L [facility] ALT 16 0 - 40 U/L [facility] TOTAL PROTEIN 7.1 6.5 - 8.0 g/dL [facility] ALBUMIN 4.4 3.9 - 4.8 g/dL [facility] GLOBULIN 2.7 1 - 4.8 g/dL [facility] A/G Ratio 1.63 1.00 - 4.80 RATIO [facility] Blood 07/25/2025 3:39 PM EDT 07/25/2025 3:55 PM EDT Kamryn DOHERTYC LAB BLOOD ORDERABLES Final Result [address] [address] * PT-INR (07/25/2025 3:39 PM EDT) [facility] PT 12.9 10.2 - 12.9 sec [facility] INR 1.0 0.9 - 1.1 [facility] Comment:Therapeutic range fo r oral Vitamin K antagonists: 2.0-3.5 Blood 07/25/2025 3:39 PM EDT 07/25/2025 3:55 PM EDT Kamryn Guerra PA-C LAB BLOOD ORDERABLES Final Result Performing Organization Address City/[facility]/ZIP Co de Phone Number [address] [address] * (ABNORMAL) Urinalysis w/reflex Urine Culture (07/25/2025 3:37 PM EDT) Pathologist [facility] COLOR Yellow Yellow [facility] CLARITY Clear [facility] GLUCOSE Negative Negative [facility] BILI Negative Negative [facility] KETONES Negative Negative [facility] SPECIFIC GRAVITY 1.010 1.005 - 1.030 [facility] BLOOD Negative Negative [facility] PH 7.0 5.0 - 8.0 [facility] Protein-UA Negative Negative [facility] NITRITE Negative Negative [facility] Leukocyte esterase, ur Trace(A) Negative [facility] Urine (Urine) 07/25/2025 3:3 7 PM EDT 07/25/2025 3:56 PM EDT Kamryn RodarteTheStreetjessica PA-C URINE ORDERABLES Eveline l Result Performing Organization Address [facility] Co de Phone Number [address] [address] * (ABNORMAL) Urine sediment (07/25/2025 3:37 PM EDT) WBC 0-4(A) NONE SEEN /hpf [facility] RBC 0-2(A) NONE SEEN /hpf [facility] URINE EPITHELIAL NONE SEEN NONE SEEN [facility] MUCUS Trace(A) NONE SEEN /hpf [facility] BACTERIA NONE SEEN NONE SEEN /hpf [facility] 07/25/2025 3:37 PM EDT 07/25/2025 3:56 PM EDT Kamryn RodarteTheStreetjessica PA-C URINE ORDERABLES Eveline l Result [address] [address] * Sodium, random urine (07/25/2025 3:37 PM EDT) URINE SODIUM 38 mmol/L [facility] 07/25/2025 3:37 PM EDT 07/25/2025 3:56 PM EDT Kamryn Gwen Hiildefonso PA-C URINE ORDERABLES Eveline l Result [address] [address] * Osmolality, Random Urine (07/25/2025 3:37 PM EDT) URINE OSMOLALITY 267 mOsm/kg water [facility] 07/25/2025 3:37 PM EDT 07/25/2025 3:56 PM EDT Kamryn Guerra PA-C URINE ORDERABLES Eveline l Result Performing Organization Address City/[facility]/ZIP Co de Phone Number [address] [address] * Lab Add On: serum osmolality (07/18/2025 11:51 PM EDT) TEST REQUESTED SERUM OSMOLALITY [facility] Comments (Chemistry) Add on order being processed. Floor or provider will be notified if testing cannot be performed [facility] 07/18/2025 11:5 1 PM EDT 07/19/2025 12:28 AM EDT Charbel Levy MD LAB BLOOD ORDERABLES Final Resu lt Performing Organization Address City/[facility]/ZIP Co de Phone Number [address] [address] * Monoclonal protein study, serum (07/18/2025 3:31 PM EDT) M-protein GK Test component not applicable or not reported. g/dL [facility] M-protein GL Test component not applicable or not reported. g/dL [facility] M-protein AK Test component not applicable or not reported. g/dL [facility] M-protein AL Test component not applicable or not reported. g/dL [facility] M-protein MK Test component not applicable or not reported. g/dL [facility] M-protein ML Test component not applicable or not reported. g/dL [facility] Glycosylation Test component not applicable or not reported. [facility] Flag, M-protein Isotype Negative Negative [facility] QMPTS Interpretation No monoclonal protein detected. [facility] Comment: (NOTE) ADDITIONAL INFORMATION The submitted sample was assayed by five separate immunopurifications for IgG, IgA, IgM, kappa and lambda. The result reflects the findings of either no monoclonal protein detected or those monoclonal immunoglobulins that were detected. This test was developed and its performance characteristics determined by [facility] in a manner consistent with CLIA requirements. This test has not been cleared or approved by the U.S. Food and Drug Administration. IgA 223 61 - 356 mg/dL [facility] IgM 44 37 - 286 mg/dL [facility] IgG 997 767 - 1,590 mg/dL [facility] Therapeutic Antibody Administered? No [facility] Comment:Corrected on 07/23 A T 1222: previously reported as NO Blood 07/18/2025 3:31 PM EDT 07/18/2025 3:36 PM EDT us Cornelia Membreno MD LAB BLOOD ORDERABLES Edite d Result - Final [facility] [address] [place] [address] * (ABNORMAL) Comprehensive metabolic panel (07/18/2025 3:31 PM EDT) SODIUM 118(LL) 133 - 146 mmol/L [facility] Comment: Critical value: Results called to and read back by: Jewell Denton CMG POTASSIUM 5.2(H) 3.3 - 5.1 mmol/L [facility] CHLORIDE 84(L) 96 - 108 mmol/L [facility] CO2 24 21 - 35 mmol/L [facility] BUN 11 6 - 19 mg/dL [facility] CREATININE 0.80 0.5 - 1.5 mg/dL [facility] GLUCOSE 126(H) 70 - 99 mg/dL [facility] ALBUMIN 3.9 3.9 - 4.8 g/dL [facility] TOTAL PROTEIN 6.5 6.5 - 8.0 g/dL [facility] CALCIUM 9.2 8.4 - 10.3 mg/dL [facility] ALKALINE PHOSPHATASE 89 39 - 117 U/L [facility] TOTAL BILIRUBIN 1.8(H) 0.0 - 1.2 mg/dL [facility] AST 32 0 - 37 U/L [facility] ALT 18 0 - 40 U/L [facility] GLOBULIN 2.6 1 - 4.8 g/dL [facility] EGFR 93 >59 mL/min/1.7 3m2 [facility] Comment:Estimated glomerular filtration rate calculated using the CKD-EPI refit equation. ANION GAP 15 10 - 20 mmol/L [facility] Blood 07/18/2025 3:31 PM EDT 07/18/2025 3:36 PM EDT us Cornelia Membreno MD LAB BLOOD ORDERABLES Final Result Performing Organization Address City/State/[facility] Co de Phone Number [address] [address] * (ABNORMAL) CBC (07/18/2025 3:31 PM EDT) WBC 5.51 4.00 - 11.00 K/uL [facility] RBC 3.30(L) 4.50 - 5.90 M/uL [facility] HGB 10.2(L) 13.5 - 17.5 g/dL [facility] HCT 30.0(L) 41.0 - 53.0 % [facility] PLT 166 150 - 450 K/uL [facility] MCV 90.9 80.0 - 100.0 fL [facility] MCH 30.9 27.0 - 31.0 pg [facility] MCHC 34.0 32.0 - 36.0 g/dL [facility] RDW 13.4 11.5 - 14.5 % [facility] MPV 9.4 8.4 - 12.0 fL [facility] NRBC 0.00 0.00 /100 WBCs [facility] ABSOLUTE NRBC 0.00 0.00 K/uL [facility] Blood 07/18/2025 3:31 PM EDT 07/18/2025 3:36 PM EDT us Cornelia Membreno MD LAB BLOOD ORDERABLES Final Result [facility] [address] [place] [address] * NC Myocardial Perfusion Pharmacologic Stress Multiple [...] injection of Tc99m Sestamibi by Charlene nuclear engineer. 1. EKG: Baseline EKG showed atrial sensed [...] attached stress report for full details. Ena Belle NP ___ NUCLEAR REPORT: TYPE OF STUDY: Myocardial Perfusion Imaging after Regadenoson protocol with gated SPECT. PROTOCOL USED: One day Regadenoson rest-stress protocol in the supine and prone position. Images were obtained in gated tomographic technique. Images were processed in SPECT format, reconstructed tomographically and compared [id number] in short axis, horizontal long axis and [...] Score: 1 Percentage Abnormal: 1.47% Procedure Note Braxton King MD - 06/01/2025 Normal myocardial perfusion imaging. There are no fixed or reversible perfusion defects. There is a nonspecific attenuation artifact that improved on stressimaging. TID ratio is normal at 1.14. LVEF was 49% both at rest and poststress. [facility] [employer] DNP CV NM CARDIAC Final Result * Iron (05/11/2025 10:00 AM EDT) IRON 113 45 - 160 ug/dL [facility] Blood 05/11/2025 10:0 0 AM EDT 05/11/2025 10:06 AM EDT [email or web address] DNP LAB BLOOD ORDERABLES Final Resul t Performing Organization Address [facility]/ZIP Co de Phone Number [address] [address] * (ABNORMAL) Folate (05/11/2025 10:00 AM EDT) FOLIC ACID >20.0(H) 4.2 - 19.9 ng/mL [facility] Blood 05/11/2025 10:0 0 AM EDT 05/11/2025 10:06 AM EDT [email or web address] [facility] LAB BLOOD ORDERABLES Final Resul t Performing Organization Address [facility]/ZIP Co de Phone Number [address] [address] * Ferritin (05/11/2025 10:00 AM EDT) FERRITIN 70 30 - 400 ug/L [facility] Blood 05/11/2025 10:0 0 AM EDT 05/11/2025 10:06 AM EDT [email or web address] [facility] LAB BLOOD ORDERABLES Final Resul t Performing Organization Address City/[facility]/ZIP Co de Phone Number [address] [address] * Vitamin B12 (05/11/2025 10:00 AM EDT) VITAMIN B12 679 232 - 1,245 pg/mL [facility] Blood 05/11/2025 10:0 0 AM EDT 05/11/2025 10:06 AM EDT [email or web address] [facility] LAB BLOOD ORDERABLES Final Resul t Performing Organization Address [facility] Co de Phone Number [address] [address] * DEVICE CHECK: PPM IN-PERSON PROGRAMMING LEADLESS [...] bradycardia Examination: Device type: AVEIR Dual Pacemaker Forming Department End Finder: [facility] Mode: DDD LRL/URL: 60/130 bpm [...] per [facility] protocol Report prepared by Christophe Baker, RN us Ceasar Devries MD CV CARDIAC SERVICES ORDERABLE S Final Result * (ABNORMAL) Hemoglobin A1c (04/11/2025 9:06 AM EDT) HEMOGLOBIN A1C 6.2(H) 4.3 - 5.8 % [facility] Blood 04/11/2025 9:06 AM EDT 04/11/2025 9:20 AM EDT us Alejo Elam DO LAB BLOOD ORDERABLES Final Resul t [address] [address] * ENDOSCOPY, COLON (11/29/2024 8:44 AM EST) Narrative Transcriptions Braxton Catherine MD - 11/29/2024 8:44 AM EST [facility] Patient Name: Jt Leida Attending MD:: BRAXTON CATHERINE MD, Procedure Date: 11/29/2024 8:44 AM Date of : 1950 Age: 74 Admit Type: Outpatient Gender: Male Room: [facility] 05 Referring MD: CORNELIA DOSS MD Exam Type: Colonoscopy Indications: High [...] monitored continuously. The Olympus adult variable colonoscope [id number] #5 was introduced through the anus and [...] Repeat colonoscopy in 5 years for surveillance. Braxton Catherine BRAXTON CATHERINE MD 11/29/2024 9:20:05 AM This report has been signed electronically. Number of Addenda: 0 Note Initiated On: 11/29/2024 8:44 AM Procedure Code(s): --- Professional --- 67449, Colonoscopy, flexible; with removal of tumor(s), polyp(s), or other lesion(s) by snare technique --- Technical --- 20666, Colonoscopy, flexible; with removal of tumor(s), polyp(s), or other lesion(s) by snare technique CPT copyright 2021 [employer]. All rights reserved. The codes documented in this report are preliminary and upon stamp pad finisher reviewmay be revised to meet current compliance requirements. Procedure Date: 11/29/2024 8:44:[address] [place] [address] us Cornelia Membreno MD GI PROCEDURE ORDERABLES Fi nal Result * DIABETES EYE EXAM FOR RESULT ENTRY ONLY (09/01/2024 11:43 AM EST) us Unknown Unknown HEALTH MAINTENANCE Edited Res ult - Final from Last 3 Months or Most Recently Relevant to Health Maintenance [place] [address] [place] [address] MEDEX SUPPLEMENT MEDICARE PART A & B MEDICARE PART A & B MEDICARE PART A & B MEDEX SUPPLEMENT MEDICARE PART A & B [employer] CROSS MEDEX SUPPLEMENT MEDICARE PART A & B [employer] CROSS MEDEX SUPPLEMENT MEDICARE PART A & B [employer] MEDEX SUPPLEMENT MEDICARE PART A & B [employer] MEDEX SUPPLEMENT MEDICARE PART A & B MEDICARE PART A & B Advance Directives For more information, please contact: [phone] (9AM - 5PM [facility], Wednesday-Wednesday) Documents on File Type Date Recorded Patient Soda Dispenser Expl anation Healthcare Proxy 04/16/2022 * Full Code (Latest Code Status on File) Date Activated Date Inactivated Comments 07/25/2025 9:11 PM Question Answer Comments Code Status Confirmed With: Patient * Full Code Date Activated Date Inactivated Comments 04/22/2025 4:14 AM 07/25/2025 9:11 PM Question Answer Comments Code Status Confirmed With: Patient Code Status Communicated To: Inpatient Attending * Full Code (Confirmed) Date Activated Date Inactivated Comments 07/12/2019 9:17 PM 07/13/2019 6:45 PM Question Answer Comments Code Status Confirmed With: Patient Care Teams Front End Engineer Relationship Specialty Start Date End Date Cornelia Membreno MD [address] [facility] [place] [address] [email or web address] PCP - General 08/12/17 Cornelia Membreno MD [address] [facility] [place] [address] [email or web address] Insurance Assigned Provider 01/28/25 Kaitlin Greene, OT [address] [place] [id number] [email or web address] Transitions Embedded Hardware EngineerBalance Truer Therapy 07/26/25 Additional Source Comments The information contained in this document represents components of the legal health record. It is not the complete legal health record.[facility]
--- OUTSIDE RECORDS SUMMARY | 2025-07-27 11:00 | XMS_ITS | Encounter Summary ---
Author Organization [facility] Address [address] [place] [address] [place] [address] Phone Care Team Providers Care Blow Mold Machine Operator Name Role Phone Cornelia Membreno MD Primary Care Provider + [phone] Cornelia Membreno MD Unavailable [phone] Kaitlin Greene OT Unavailable Reason for Visit * Reason Onset Date Comments ACO Care Coordination 07/26/2025 TCM follow ing Encounter Details Date Type Department Care Team (Latest Contact Info) Description 07/26/2025 Patient Outreach [facility] [address] [place] [address] Kaitlin Greene, OT [address] [place] [address] [email or web address] ACO Care Coordination (TCM following) Social History Tobacco Use Types Packs/Day Years [...] as of this encounter Progress Notes * Kaitlin Greene, OT - 07/26/2025 6:21 PM EDT TCM PROGRESS NOTE 07/26/2025 Confirmed patient is active in ACO via PHM Lookup Tool. This production underwriter added self to care team. Chart review complete. Hyponatremia. No OT/PT orders at this time. Will continue to follow. documented in this encounter Plan of Treatment Upcoming Encounters Date Type Department Care Team (Late st Contact Info) Description 12/05/2024 Procedure Pass Echo Lab [address] [place] [address] 08/28/2025 9:15 AM EST Office Visit [facility] [address] [place] [address] [place] [address] Cornelia Membreno MD [address] [place] [address], [address] [place] [address] 10/29/2025 8:30 AM EST Appointment Echo Lab [address] [place] [address] Cindy Russell DNP [address] [place] [address], [address] [place] [address] 11/01/2025 9:10 AM EST Office Visit [facility] [address] [place] [address] [place] [address] Alejo Elam DO [address] [place] [address] 11/16/2025 11:40 AM EST Office Visit [facility] [address] [facility] 3rd Floor, [address] [place] [address] Win Zheng MD 22 [facility], [address] [place] [address] [email or web address] documented as of this encounter Visit Diagnoses Not on filedocumented in this encounter Additional Health Concerns Assessment Noted Time PHQ-2 Depression Total Score: 0 04/17/20 24 2:22 PM EDT documented as of this encounter Care Teams Blow Mold Machine Operator Relationship Specialty Start Date End Date Cornelia Membreno MD 22 [facility], [address] [place] [address] [email or web address] PCP - General 08/12/17 Cornelia Membreno MD [address] [place] [address], [address] [place] [address] [email or web address] Insurance Assigned Provider 01/28/25 Kaitlin Greene, OT [address] [place] [address] [email or web address] Transitions Garbage Truck DispatcherWood Grinder Therapy 07/26/25 documented as of this encounter Additional Source Comments The information contained in this document represents components of the legal health record. It is not the complete legal health record.[facility]
--- OUTSIDE RECORDS SUMMARY | 2025-07-27 11:00 | XMS_ITS | Encounter Summary ---
Author Organization [facility] Address [address] [place] [address] Phone Care Team Providers Care Casket Trimmer Name Role Phone Cornelia Membreno MD Primary Care Provider + [phone] Bakari Henson MD Unavailable [phone] Art Ley MD Unavailable Akira Malik MD Unavailable [phone] Cornelia Membreno MD Unavailable [phone] Cornelia Membreno MD Unavailable [phone] Kaitlin Greene OT Unavailable [phone] Kaitlin Greene OT Unavailable [phone] Encounter Details Date Type Department Care Team (Late st Contact Info) Description 10/30/2020 Ancillary Orders [facility] [address] [place], [place] [id number] System, Provider Not In, [facility] [address] [address] Social History Tobacco Use Types Packs/Day Years [...] Description 12/05/2024 Procedure Pass Echo Lab [address] [place] [address] 08/28/2025 9:15 AM EST Office Visit [facility] [address] [place] [address] [place] [address] Cornelia Membreno MD [address] [place] [address], [address] [place] [address] 10/29/2025 8:30 AM EST Appointment Echo Lab [address] [place] [address] Cindy Russell DNP [address] [place] [address], [address] [place] [address] 11/01/2025 9:10 AM EST Office Visit [facility] [address] [place] [address] [place] [address] Alejo Elam DO 22 [place] [address] 11/16/2025 11:40 AM EST Office Visit [facility] [address] [place] [address] 3rd Floor, [address] [place] [address] Win Zheng MD [address] [place] [address], [address] [address] documented as of this encounter Results * [...] documented as of this encounter Care Teams Casket Trimmer Relationship Specialty Start Date End Date Cornelia Membreno MD [address] [place] [address], [address] [place] [address] [email or web address] PCP - General 08/12/17 Bakari Henson MD [address] [place] [address] [email or web address] Historical LMR Provider 08/14/17 11/01/21 Art Ley MD [address] [place] [address] [email or web address] Historical LMR Provider 08/14/17 11/01/21 Akira Malik MD [address] [place] [address] Historical LMR Provider 08/14/17 11/01/21 Cornelia Membreno MD [address] [place] [address], [address] [place] [address] Insurance Assigned Provider 01/22/18 05/30/23 Cornelia Membreno MD [address] [place] [address], [address] [place] [address] Insurance Assigned Provider 01/28/25 Kaitlin Greene, OT 30 [place] [address] Transitions Bronze PlaterBreaker Tender Therapy 04/23/2504/24/25 Kaitlin Greene, OT 30 [place] [address] [email or web address] Transitions Bronze PlaterBreaker Tender Therapy 07/26/25 documented as of this encounter Additional Source Comments The information contained in this document represents components of the legal health record. It is not the complete legal health record.[facility]
--- OUTSIDE RECORDS SUMMARY | 2025-07-27 11:00 | XMS_ITS | Encounter Summary ---
Author Organization [facility] Address [address] [facility] [address] [place] [address] Phone Care Team Providers Care Pbx Technician Name Role Phone Cornelia Membreno MD Primary Care Provider [phone] Cornelia Membreno MD Unavailable [phone] Reason for Visit * Reason Onset Date Comments PT Update 07/25/2025 Encounter Details Date Type Department Care Team (Late st Contact Info) Description 07/25/2025 Telephone [email or web address] [address] [place] [address] Cornelia Membreno MD 22 [facility], [address] [place] [address] [email or web address] PT Update Social History Tobacco Use Types Packs/Day Years [...] housing situation today? I have nicole michel 07/18/2025 How many times have you move [...] 3:12 PM EDT Rachell Carlson RN * [place] Suicide Severity Rating Scale (Screener/Recent Self-Report) Question Answer Date of Assessment Author 1. Wish to be (Past 1 Month) No 025 3:12 PM EDT Rachell Carlson RN 2. Non-Specific Active Suici divina Thoughts (Past 1 Month) No 07/25/2025 3:12 PM EDT Rachell Carlson RN 6. Suicidal Behavior (Lifetime) No 3:12 PM EDT Rachell Carlson RN documented as of this encounter Progress Notes * Kamryn Hicks RN - 07/25/2025 3:34 PM EDT Reviewed ED documentation. Triage note accurately captures why patient is at the ED. At the time ofthis note, the patient has a bed and lab orders are in place. * Lizz Gregory - 07/25/2025 3:00 PM EDT Pt called said that he is waiting AT [facility] ed they did not know that ment he was coming and do not know why pt is needed treatment Please call pt on his cell phone documented in this encounter Plan of Treatment Upcoming Encounters Date Type Department Care Team (Late st Contact Info) Description 12/05/2024 Procedure Pass Echo Lab [address] [place] [address] 08/28/2025 9:15 AM EST Office Visit [address] [place] [address] Cornelia Membreno MD 22 [facility], [address] [place] [address] 10/29/2025 8:30 AM EST Appointment Echo Lab [address] [place] [address] Cindy Russell DNP [address] [place] [address], [address] [address] 11/01/2025 9:10 AM EST Office Visit [facility] [address] [place] [address] [place] [address] Alejo Elam DO [address] [place] [address] 11/16/2025 11:40 AM EST Office Visit [facility] [address] [place] [address] 3rd Floor, [address] [address] Win Zheng MD [address] [place] [address] documented as of this encounter Visit Diagnoses Not on filedocumented in this encounter Additional Health Concerns Assessment Noted Time PHQ-2 Depression Total Score: 0 04/17/20 24 2:22 PM EDT documented as of this encounter Care Teams Pbx Technician Relationship Specialty Start Date End Date Cornelia Membreno MD [address] [place] [address], [address] [address] PCP - General 08/12/17 Cornelia Membreno MD [address] [place] [address], [address] [address] Insurance Assigned Provider 01/28/25 documented as of this encounter Additional Source Comments The information contained in this document represents components of the legal health record. It is not the complete legal health record.[facility]
--- OUTSIDE RECORDS SUMMARY | 2025-07-27 11:00 | XMS_ITS | Encounter Summary ---
Author Organization [facility] Address [address] [place] [address] [place] [address] Phone Care Team Providers Care Cascade Operator Name Role Phone Cornelia Membreno MD Primary Care Provider + [phone] Cornelia Membreno MD Unavailable [phone] Cornelia Membreno MD Unavailable [phone] Kaitlin Greene OT Unavailable [phone] Kaitlin Greene OT Unavailable [phone] Encounter Details Date Type Department Care Team (Late st Contact Info) Description 04/15/2022 Procedure Pass OR Admitting Dept - Virtual Department [address] [place] [address] Social History Tobacco Use Types Packs/Day Years [...] high school, GED, job training, learning the French language, technical skills, or developing parenting skills)? [...] Info) Description 12/05/2024 Procedure Pass Echo Lab [address] [place] [address] 08/28/2025 9:15 AM EST Office Visit [facility] [address] [place] [address] [place] [address] Cornelia Membreno MD 22 [facility], [address] [place] [address] 10/29/2025 8:30 AM EST Appointment Echo Lab [address] [address] Cindy Russell DNP [address] [facility], [address] [address] 11/01/2025 9:10 AM EST Office Visit [facility] [address] [place] [address] Alejo Elam DO 22 [place] [address] 11/16/2025 11:40 AM EST Office Visit [facility] [address] [place] [address] 3rd Floor, [address] [address] Win Zheng MD [address] [place] [address] documented as of this encounter Visit Diagnoses [...] documented as of this encounter Care Teams Cascade Operator Relationship Specialty Start Date End Date Cornelia Membreno MD [address] [place] [address], [address] [place] [address] [address] PCP - General 08/12/17 Cornelia Membreno MD [address] [place] [address], [address] [place] [address] Insurance Assigned Provider 01/22/18 05/30/23 Cornelia Membreno MD 22 [facility], [address] [place] [address] Insurance Assigned Provider 01/28/25 Kaitlin Greene, OT 30 [place] [address] Transitions EntrepreneurWant Ad Receiver Therapy 04/23/2504/24/25 Kaitlin Greene, OT 30 [place] [address] Transitions EntrepreneurWant Ad Receiver Therapy 07/26/25 documented as of this encounter Additional Source Comments The information contained in this document represents components of the legal health record. It is not the complete legal health record.[facility]
--- OUTSIDE RECORDS SUMMARY | 2025-07-27 11:00 | XMS_ITS | Encounter Summary ---
Author Organization [facility] Address [address] [place] [address] Phone Support Name Relationship Address Phone Amy [place] [facility] [address] [place] [address] Keysha Cox Emergency Contact [address] [place] [address] Care Team Providers Care Alcohol Still Operator Name Role Phone Cornelia Membreno MD Primary Care Provider + [phone] Bakari Henson MD Unavailable [phone] Art Ley MD Unavailable Akira Malik MD Unavailable [phone] Cornelia Membreno MD Unavailable [phone] Cornelia Membreno MD Unavailable [phone] Kaitlin Greene OT Unavailable [phone] Kaitlin Greene OT Unavailable [phone] Encounter Details Date Type Department Care Team (Late st Contact Info) Description 10/26/2020 Procedure Pass Echo [facility] [place] [place] [address] Social History Tobacco Use Types [...] Description 12/05/2024 Procedure Pass Echo Lab [address] [place] [address] 08/28/2025 9:15 AM EST Office Visit [facility] [place] [facility] [address] [place] [address] [place] [address] Cornelia Membreno MD [address] [place] [address], [address] [place] [address] 10/29/2025 8:30 AM EST Appointment Echo Lab [address] [place] [address] Cindy Russell DNP [address] [place] [address], [address] [address] 11/01/2025 9:10 AM EST Office Visit [facility] [address] [place] [address] [place] [address] Alejo Elam DO 22 [place] [address] 11/16/2025 11:40 AM EST Office Visit [facility] [address] [place] [address] 3rd Floor, [address] [address] Win Zheng MD [address] [place] [address] documented as of this encounter Visit Diagnoses [...] documented as of this encounter Care Teams Alcohol Still Operator Relationship Specialty Start Date End Date Cornelia Membreno MD [address] [place] [address], [address] [place] [address] [email or web address] PCP - General 08/12/17 Bakari Henson MD [address] [place] [address] [email or web address] Historical LMR Provider 08/14/17 11/01/21 Art Ley MD [address] [place] [address] [email or web address] Historical LMR Provider 08/14/17 11/01/21 Akira Malik MD [address] [place] [address] [email or web address] Historical LMR Provider 08/14/17 11/01/21 Cornelia Membreno MD [address] [place] [address] Insurance Assigned Provider 01/22/18 05/30/23 Cornelia Membreno MD [address] [place] [address], [address] [place] [address] [email or web address] Insurance Assigned Provider 01/28/25 Kaitlin Greene, OT 30 [place] [address] [email or web address] Transitions LapperClinical Trials Nurse Therapy 04/23/2504/24/25 Kaitlin Greene, OT 30 [place] [address] [email or web address] Transitions LapperClinical Trials Nurse Therapy 07/26/25 documented as of this encounter Additional Source Comments The information contained in this document represents components of the legal health record. It is not the complete legal health record.[facility]
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
== END 2025-07-27 10:16 | disposition home or self-care (01) ==
LOC: HO.HID 10:08
PROVIDERS: PCP Family Medicine; Visit Provider Internal Medicine
DX: M86.9 Osteomyelitis, unspecified (principal)
CPT/HCPCS: 99213